=== PATIENT | female | born 1965 | race Caucasian/White ===

== ENCOUNTER 2020-01-02 07:31 | Outpatient (CLI) | payer OTHER, SELFPAY ==
[2020-01-02 07:48] LABS: Basophils Percent Auto 0.5 % (0.2-1.2); Eosinophils Absolute Auto 0.6 K/mm3 (0-0.3); Eosinophils Percent Auto 7.2 % (0-4.4); Hematocrit 38.2 % (37.0-47.0); Hemoglobin 12.1 g/dL (12.0-15.0); Immature Granulocyte Absolute 0.02 K/mm3 (0.00-0.031); Immature Granulocyte Percent A 0.2 % (0-0.5); Lymphocytes Absolute Auto 3.54 K/mm3 (0.9-3.2); Lymphocytes Percent Auto 42.5 % (18.3-44.2); Mean Corpuscular HGB Conc 31.7 g/dl (32-36); Mean Corpuscular Hemoglobin 28.9 pg (26-34); Mean Corpuscular Volume 91.2 fl (80-100); Mean Platelet Volume 10.3 fl (7.4-10.4); Monocytes Absolute Auto 0.7 K/mm3 (0.1-0.6); Neutrophils Absolute Auto 3.5 K/mm3 (1.3-6.7); Neutrophils Percent Auto 41.6 % (45.5-73.1); Platelet Count Result 336 k/mm3 (150-375); Red Blood Count 4.19 M/mm3 (4.2-5.4); Red Cell Distribution Width 13.4 % (11.5-14.5); White Blood Count 8.3 K/mm3 (4.5-10.0)
[2020-01-02 07:59] LABS: Alanine Aminotransferase 30 U/L (4-35); Albumin Level 4.4 g/dL (3.5-5.1); Alkaline Phosphatase 80 U/L (38-126); Aspartate Amino Transferase 42 U/L (14-36); Bilirubin,Total 0.4 mg/dL (0.2-1.3); Blood Urea Nitrogen 17 mg/dL (7-17); Calcium 9.6 mg/dL (8.4-10.2); Carbon Dioxide 27 mmol/L (22-30); Chloride 104 mmol/L (98-107); Cholesterol 193 mg/dL (0-200); Estimated Glomerular Filt Rate > 60; Glucose 110 mg/dL (65-105); HDL Direct 44 mg/dL; Potassium 4.3 mmol/L (3.4-5.0); Sodium 137 mmol/L (137-145); Triglycerides 285 mg/dL (<150)
[2020-01-02 09:50] LABS: LDL Cholesterol Direct < 30 mg/dL
== END 2020-01-02 07:32 | disposition home or self-care (01) ==
PROVIDERS: PCP Family Medicine; Visit Provider Family Medicine
DX: F32.9 Major depressive disorder, single episode, unspecified (principal); E78.2 Mixed hyperlipidemia; D64.9 Anemia, unspecified
CPT/HCPCS: 36415; 80053; 80061; 84443; 85025

== ENCOUNTER 2020-01-21 10:37 | Outpatient (CLI) | payer OTHER, SELFPAY ==
--- NOTE | 2020-01-21 11:01 | ECG_ITS ---
Measurements Intervals [place] Rate: 69 P: 42 HI: 143 QRS: -39 QRSD: 97 T: 3 QT: 398 QTc: 428 Interpretive Statements SINUS RHYTHM LEFT AXIS DEVIATION POOR R WAVE PROGRESSION, ANTERIOR LEADS MINIMAL Q WAVES- HIGH LATERAL LEADS BORDERLINE T WAVE ABNORMALITY- ANT/INF LEADS BORDERLINE ECG Electronically Signed On 01-21-2020 11:45:38 CDT by Carter Walters D.O.
== END 2020-01-21 10:38 | disposition home or self-care (01) ==
PROVIDERS: PCP Family Medicine; Visit Provider Nurse Practitioner Family
DX: Z41.9 Encounter for procedure for purposes other than remedying health state, unspecified (principal); R94.31 Abnormal electrocardiogram [ECG] [EKG]
CPT/HCPCS: 93005

== ENCOUNTER → 2020-05-28 10:30 | Outpatient (CLI) | payer OTHER, SELFPAY ==
--- NOTE | ~2020-05-28 | MR_ITS ---
EXAMINATION: MR knee RT wo con DATE: 05/28/2020 11:19 INDICATION: Generalized right knee pain and limited range of motion TECHNIQUE: Magnetic resonance imaging (MRI) of the right knee was performed without intravenous contr ast. Sequences included coronal PD-weighted FSE, coronal PD-weighted FS FSE, sagittal T2-weighted FS E, sagittal PD-weighted FS FSE and axial PD weighted fat saturated FSE. COMPARISON: None. FINDINGS: Medial compartment: The posterior horn of the medial meniscus is small but with normal triangular shape which may be rela mena to prior partial meniscectomy given the provided history of prior knee surgery. There is a radial tear at the central aspect of the posterior horn of the medial meniscus which is best appreciated on axial series 4, image 14. There is partial thickness chondral ulceration involving greater than 50% the cartilage thickness along significant portions of the anterior to central weightbearing medial fe moral condyle. Small focus of underlying subarticular edema along the medial side of the central weig htbearing medial femoral condyle. There is small chondral flap along the the posterior margin of the region of ulceration. Additional deep chondral fissuring at the medial side of the posterior weightbe aring medial femoral condyle. Partial thickness cartilage loss with smooth chondral surface along the medial side of the medial tibial plateau. Lateral compartment: Bucket-handle tear of the lateral meniscus with anterior displacement of a flap comprising majority o f the meniscus resulting in a double anterior horn sign. There is a small amount residual frayed appe aring meniscal tissue at the posterior horn with minimal if any meniscal tissue remaining in the venkat on of the meniscal body. Deep chondral ulceration at the medial side of the medial tibial plateau kristopher ng the shoulder of the intercondylar eminence with minimal underlying subarticular edema. There is ad ditional shallow chondral ulceration and deeper fissuring along the juxtaposed medial side of the margarita tral weightbearing lateral femoral condyle. Patellofemoral compartment: Partial-thickness cartilage loss and deep fissuring involving much of the patella with small region o f subarticular edema at the lateral side of the cephalad aspect of the apical ridge. Deep chondral fi ssuring with crabmeat-like appearance but without degenerative subarticular changes at the trochlear groove. Additional deep fissuring with mild underlying cortical irregularity at the medial aspect of the medial trochlea and lateral aspect of the lateral trochlea. Ligaments and tendons: Anterior and posterior cruciate ligaments are normal. The medial collateral ligament and fibular mary ateral ligament complex are normal. The extensor mechanism is normal. The visualized medial and later al hamstring tendons as well as the iliotibial band are normal. Fluid: Large right knee joint effusion with scattered mild synovitis most prominent at the suprapatellar sondra ch and along the posterior margin of Hoffa's fat pad. No loose osteochondral bodies identified. Osseous/other: Bone alignment is normal. No fracture or pathologic marrow replacing process. IMPRESSION: 1. Lateral meniscal bucket-handle tear with anterior displacement of a large meniscal flap comprising the majority of the body and posterior horn. 2. Radial tear at the small posterior horn of the medial meniscus the latter likely reflecting change s of prior partial meniscectomy. 3. Mild tricompartmental osteoarthritis with regions of high-grade chondromalacia in all 3 compartmen ts. 4. Large right knee joint effusion. Reviewed, dictated and finalized at location A.
== END ==
PROVIDERS: PCP Family Medicine; Visit Provider Nurse Practitioner Family
DX: M25.561 Pain in right knee (principal); M25.461 Effusion, right knee; S83.251A Bucket-handle tear of lateral meniscus, current injury, right knee, initial encounter; S83.211A Bucket-handle tear of medial meniscus, current injury, right knee, initial encounter; M17.11 Unilateral primary osteoarthritis, right knee
CPT/HCPCS: 73721

== ENCOUNTER 2020-09-05 15:18 | Outpatient (CLI) | payer OTHER, SELFPAY ==
--- NOTE | ~2020-09-05 | US_ITS ---
EXAMINATION: US thyroid DATE: 09/05/2020 15:41 INDICATION: Localized swelling, mass and lump, neck. TECHNIQUE: Multiple ultrasound images of the thyroid were obtained. COMPARISON: None. FINDINGS: The right thyroid lobe measures 4.3 x 1.4 x 1.5 cm. The left thyroid lobe measures 4.1 x 0.7 x 1.2 c m. In the left thyroid lobe, there is a 4 mm nodule. IMPRESSION: 1. Small thyroid nodule, likely not clinically significant. No follow-up is needed. Reviewed, dictated and finalized at location A. STERED RESPIRATORY TECHNICIAN IMPRESSION: 1. Small thyroid nodule, likely not clinically significant. No follow-up is nee ded.
== END 2020-09-05 15:19 ==
LOC: MICIMG 15:18
PROVIDERS: PCP Family Medicine; Visit Provider Nurse Practitioner Family
DX: E04.9 Nontoxic goiter, unspecified (principal); R22.1 Localized swelling, mass and lump, neck
CPT/HCPCS: 76536

== ENCOUNTER 2020-09-16 10:49 | Outpatient (CLI) | payer OTHER, SELFPAY ==
--- NOTE | ~2020-09-16 | XR_ITS ---
EXAMINATION: XR barium swallow DATE: 09/16/2020 11:56 INDICATION: Dysphagia with feeling of food becoming stuck. TECHNIQUE: The patient drank thick barium, gas-producing crystals, and thin barium. Fluoroscopy of th e hypopharynx and esophagus was performed. Fluoroscopy exposure time was 0.6 minutes. The total numbe r of images was 520. The dose-area product was 2.699 Gy-cm^2. COMPARISON: None. FINDINGS: There is no mass or stricture of the esophagus. There is decreased primary and secondary es ophageal peristalsis. No abnormal tertiary waves. There is no hiatal hernia. There was no gastroesoph ageal reflux with provocative maneuvers. IMPRESSION: 1. Mild esophageal dysmotility. Reviewed, dictated and finalized at location B. CARDIOGRAPHY TECHNOLOGIST
--- NOTE | ~2020-09-16 | US_ITS ---
EXAMINATION: US soft tissue head and neck DATE: 09/16/2020 11:07 INDICATION: Neck lump. TECHNIQUE: Multiple grayscale ultrasound images of the neck were obtained. COMPARISON: None FINDINGS: There is no abnormal mass or lymphadenopathy in the patient's area of concern in the neck. IMPRESSION: 1. No abnormal mass or lymphadenopathy in the patient's area of concern in the neck. Reviewed, dictated and finalized at location B. ER COOK
== END 2020-09-16 10:50 ==
PROVIDERS: PCP Family Medicine; Visit Provider Nurse Practitioner Family
DX: R22.1 Localized swelling, mass and lump, neck (principal); K22.4 Dyskinesia of esophagus
CPT/HCPCS: 74220; 76536

== ENCOUNTER 2020-09-27 14:52 | Outpatient (RCR) | payer OTHER, SELFPAY ==
--- NOTE | 2020-09-27 15:56 | STOPEVAL ---
SPEECH THERAPY INITIAL EVALUATION/DISCHARGE: Thank you for referring Arielle Zuleta to [facility] Upon completion of the bedside swallow evaluation, no overt s/s of aspiration were exhibited; Further testing via MBS may be warranted as stated below. Based on findings of this evaluation, no further ST is warranted. Please review, sign, date and return this plan of care ANGEL. I agree with the following plan of care, i.e. discharge. Referring Physician Date Attending Provider: AZUL Granda *ST Outpatient Evaluation/Discharge Therapy Assessment Status Assessment Status Assessment Status Evaluation & Discharge Outpatient Past Medical History Past Medical History Source of Past Medical History Patient Neurological History Hx Neurological Disorders No Significant History Cardiovascular History Hx Cardiac Disorders No Significant History Respiratory History Hx Bronchitis Yes Gastrointestinal History Hx Gastrointestinal Disorders No Significant History Genitourinary History Hx Genitourinary Disorders No Significant History Musculoskeletal History Hx Back Pain Yes Hx Orthopedic Surgery Yes: knee 2012 and shoulder 2019 Endocrine History Hx Endocrine Disorders No Significant History HEENT History Hx HEENT Disorders No Significant History Integumentary History Hx Skin Disorders No Significant History Evaluation Information Problem Diagnosis dysphagia Onset 3-4 months Diagnostic Tests X-Rays For This Problem Yes MRI For This Problem No Other Tests For This Problem Yes: ultrasound and esophagram Prior Level of Function Home Setting Living Situation With Adult Child,With Spouse Prior Swallow Level Prior Intake Method Oral Prior Diet Regular (Level 7 Diet) Prior Liquid Consistency Thin (Level 0 Diet) Prior Cognition/Communication Prior Communication Level No Impairment Prior Cognitive Function Able to Function Independently Prior Ability to Handle Finances Independent Pain Assessment Timing of Pain Assessment Timing of Pain Assessment Assessment Self Report Self Report Pain Level 0 Pain Score Pain Score 0: Self Report Bedside Swallow Evaluation General Reports Dysphagia Yes Reported Difficult Consistencies Solids Meal Observed Bedside Swallows History of Dysphagia No Other Factors Impacting Dysphagia None History of Pneumonia No Intake Method Prior to Swallow Oral Evaluation Diet Prior to Swallow Evaluation Regular, Level 7 Liquid Consistency Prior to Swallow Thin (0) Evaluation Cognition During Swallowing Alert,Attentive Consistency Solid Consistency Me
== END 2020-09-29 12:39 | disposition home or self-care (01) ==
LOC: ANHST 14:52
PROVIDERS: PCP Family Medicine; Visit Provider Nurse Practitioner Family
DX: R22.1 Localized swelling, mass and lump, neck (principal)
CPT/HCPCS: 92610

== ENCOUNTER 2021-03-28 00:20 | Emergency (ER) | payer OTHER, SELFPAY ==
--- NOTE | ~2021-03-28 | XR_ITS ---
EXAMINATION: XR chest 2V DATE: 03/28/2021 00:59 INDICATION: Bilateral chest pain. Nausea. TECHNIQUE: PA and lateral views of the chest were obtained. COMPARISON: Chest radiograph dated 09/06/2017 FINDINGS: Lung volumes remain small but clear with no focal airspace opacities, pulmonary edema, pleural effusi on or pneumothorax. Cardiomegaly. Distal right clavicle resection. Mild thoracic kyphosis with mild a nterior wedging at a few levels in the midthoracic spine. Moderate spondylosis. IMPRESSION: 1. No acute cardiopulmonary disease. 2. Cardiomegaly. Reviewed, dictated and finalized at location A.
--- NOTE | 2021-03-28 00:24 | ECG_ITS ---
Measurements Intervals [place] Rate: 84 P: 45 SC: 144 QRS: -50 QRSD: 97 T: 6 QT: 391 QTc: 464 Interpretive Statements SINUS RHYTHM LEFT ANTERIOR FASCICULAR BLOCK MINIMAL Q WAVES- HIGH LATERAL LEADS BORDERLINE T WAVE ABNORMALITY- ANTEROLAT/INF LEADS ABNORMAL ECG Electronically Signed On 03-28-2021 6:31:04 CDT by Carter Walters D.O.
[2021-03-28 00:28] VITALS: BP 142/96; PULSE 80; RESP 16; TEMP 36.7; O2SAT 99
[2021-03-28 00:43] LABS: Basophils Percent Auto 0.4 % (0.2-1.2); Eosinophils Absolute Auto 0.6 K/mm3 (0-0.3); Eosinophils Percent Auto 5.1 % (0-4.4); Hematocrit 37.2 % (37.0-47.0); Hemoglobin 11.6 g/dL (12.0-15.0); Immature Granulocyte Absolute 0.03 K/mm3 (0.00-0.031); Immature Granulocyte Percent A 0.3 % (0-0.5); Lymphocytes Percent Auto 44.1 % (18.3-44.2); Mean Corpuscular HGB Conc 31.2 g/dl (32-36); Mean Corpuscular Hemoglobin 28.9 pg (26-34); Mean Corpuscular Volume 92.8 fl (80-100); Mean Platelet Volume 9.8 fl (7.4-10.4); Monocytes Absolute Auto 0.8 K/mm3 (0.1-0.6); Monocytes Percent Auto 6.8 % (2.6-8.5); Neutrophils Absolute Auto 4.8 K/mm3 (1.3-6.7); Neutrophils Percent Auto 43.3 % (45.5-73.1); Platelet Count Result 358 k/mm3 (150-375); Red Blood Count 4.01 M/mm3 (4.2-5.4); Red Cell Distribution Width 13.6 % (11.5-14.5); White Blood Count 11.1 K/mm3 (4.5-10.0)
[2021-03-28 00:54] LABS: INR 0.9; Prothrombin Time 12.4 Seconds (11.1-14.7)
[2021-03-28 00:55] LABS: Anion Gap 12 mmol/L (8-16); Blood Urea Nitrogen 17 mg/dL (7-17); Calcium 10.1 mg/dL (8.4-10.2); Carbon Dioxide 24 mmol/L (22-30); Chloride 103 mmol/L (98-107); Estimated CRCL calculation 74 ml/min; Estimated Glomerular Filt Rate > 60; Glucose 104 mg/dL (65-110); Partial Thromboplastin Time 26.4 SECONDS (22.3-36.8); Potassium 3.7 mmol/L (3.4-5.0); Sodium 139 mmol/L (137-145)
[2021-03-28 01:03] LABS: Atypical Lymphocytes Present; Platelet Estimate Adequate (Adequate)
[2021-03-28 01:07] LABS: Troponin I < 0.012 ng/mL (0.000-0.034)
[2021-03-28 02:53] VITALS: BP 129/82; PULSE 79; RESP 15; O2SAT 99
[2021-03-28] MEDS: ASPIRIN 81 MG CHEWABLE TABLET 324 MG PO (03:03)
[2021-03-28 04:06] LABS: Troponin I < 0.012 ng/mL (0.000-0.034)
[2021-03-28 04:34] VITALS: BP 112/79; PULSE 68; RESP 19; O2SAT 97
[2021-03-28 04:45] LABS: Alanine Aminotransferase 21 U/L (4-35); Albumin Level 4.2 g/dL (3.5-5.1); Alkaline Phosphatase 100 U/L (38-126); Aspartate Amino Transferase 29 U/L (14-36); Bilirubin,Total 0.4 mg/dL (0.2-1.3); Lipase 50 U/L (23-300)
--- NOTE | 2021-03-28 05:24 | ED.GENADULT ---
HPI - General Adult General Chief complaint: Chest Pain Stated complaint: chest pain/sob Time Seen by Provider: 03/28/21 02:49 History of Present Illness HPI narrative: Patient is a 55-year-old female presents the emergency department chief complaint of chest discomfort. Patient states the pain is bilateral radiates to her breast patient states started off with nausea patient states it also is more the epigastric region. Patient reports that she felt a little short of breath when this happened denies fever denies chills denies vomiting or diarrhea. Patient reports symptoms are not improved by anything or they worsened by Related Data Allergies Allergy/AdvReac Type Severity Reaction Status Date / Time esomeprazole Allergy Unknown Unknown Verified 03/28/21 03:01 fluoxetine Allergy Unknown Unknown Verified 03/28/21 03:01 Review of Systems Review of Systems: A 10 system review of systems was completed on the patient and is negative except for what is stated in the HPI. Nursing and ancillary documentation was reviewed. PMFSH Past Medical History Medical History Adult BMI 33.0-33.9 kg/sq m BMI 34.0-34.9,adult BMI 36.0-36.9,adult Dysphagia Elevated liver enzymes Obesity (BMI 30.0-34.9) Onychomycosis Plantar fasciitis of left foot Surgical History Surgical History H/O shoulder surgery Family History Family History Father Hypertension Family history of heart disease in male family member before age 55 Sibling Hypertension Cerebrovascular accident Family history of diabetes mellitus in first degree relative Family history of heart disease in male family member before age 55 Mother Family history of diabetes mellitus in first degree relative Grandparent Diabetes mellitus Sibling Diabetes mellitus Other Family history of cardiovascular disease Family history of elevated blood lipids Family history of mental disorder Social History Social History Second hand tobacco smoke exposure: Yes Alcohol intake: former Substance use: never Substance use type: does not use 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 HEAD: Normocephalic, atraumatic. EYES: PERRLA and EOMI. ENT: Nares clear, no rhinorrhea or epistaxis. Mucous membranes moist. NECK: Supple. CHEST: Clear to auscultation. No respiratory distress. HEART: Regular rate and rhythm. No murmur heard. Normal peripheral pulses. ABDOMEN: Soft, nontender, nondistended, normal active bowel sounds. EXTREMITIES: Normal range of motion. No edema. SKIN: Warm, dry, no rash. NEURO: No focal deficits. Alert and oriented x3. PSYCH: Normal mood and affect. Course Vital Signs Vital signs: Vital Signs Temperature 36.7 C 03/28/21 00:28 Pulse Rate 80 03/28/21 00:28 Respiratory Rate 16 03/28/21 00:28 Blood Pressure 142/96 H 03/28/21 00:28 Pulse Oximetry 99 03/28/21 00:28 Temperature 36.7 C 03/28/21 00:28 Pulse Rate 68 03/28/21 04:34 Respiratory Rate 19 03/28/21 04:34 Blood Pressure 112/79 03/28/21 04:34 Pulse Oximetry 97 03/28/21 04:34 Medical Decision Making Vital Signs Vital Signs: Vital Signs Temperature 36.7 C 03/28/21 00:28 Pulse Rate 80 03/28/21 00:28 Respiratory Rate 16 03/28/21 00:28 Blood Pressure 142/96 H 03/28/21 00:28 Pulse Oximetry 99 03/28/21 00:28 Temperature 36.7 C 03/28/21 00:28 Pulse Rate 68 03/28/21 04:34 Respiratory Rate 19 03/28/21 04:34 Blood Pressure 112/79 03/28/21 04:34 Pulse Oximetry 97 03/28/21 04:34 Lab Data Result
[2021-03-28 05:48] VITALS: BP 105/72; PULSE 82; RESP 18; O2SAT 100
== END 2021-03-28 05:50 | disposition home or self-care (01) ==
PROVIDERS: Emergency Provider Emergency Medicine; PCP Family Medicine
DX: R07.89 Other chest pain (principal)
CPT/HCPCS: 36415; 71046; 80048; 80076; 83690; 84484; 85025; 85610; 85730; 93005; 99284; A9270

== ENCOUNTER 2021-06-13 08:46 | Outpatient (CLI) | payer OTHER, SELFPAY ==
--- NOTE | ~2021-06-13 | XR_ITS ---
XR clavicle LT 06/13/2021 10:16 INDICATION: Left clavicle pain and deformity PROCEDURE: 2 views left clavicle COMPARISON: No prior studies for comparison. FINDINGS: Fracture, dislocation or subluxation is not identified. There is mild osteoarthritis of the acromioclavicular joint. The soft tissues appear within normal limits. No foreign bodies are identi fied. IMPRESSION: 1: NO ACUTE BONE OR JOINT ABNORMALITY IDENTIFIED. Reviewed, dictated and finalized at location B.
--- NOTE | ~2021-06-13 | XR_ITS ---
EXAMINATION: XR chest 2V 06/13/2021 10:16 INDICATION: Acquired deformity of the chest and ribs PROCEDURE: 2 view chest COMPARISON: Comparison to multiple prior studies sequentially, with oldest reviewed study dated 11/12. FINDINGS: The lungs are clear. The cardiomediastinal silhouette is within normal limits. There are no pleural effusions. There is no pneumothorax suspected. IMPRESSION: 1: NO ACUTE CARDIOPULMONARY DISEASE. Reviewed, dictated and finalized at location B.
== END 2021-06-13 08:47 ==
LOC: MICIMG 08:49
PROVIDERS: PCP Family Medicine; Visit Provider Family Medicine
DX: M95.4 Acquired deformity of chest and rib (principal)
CPT/HCPCS: 71046; 73000

== ENCOUNTER 2021-08-21 15:29 | Inpatient (IN) | payer OTHER, SELFPAY ==
[2021-08-21] VITALS (20 sets, daily range): BP systolic 90–123; BP diastolic 57–84; PULSE 83–114; RESP 13–42; TEMP 35.8–36.5; O2SAT 68–100; BMI 35.6
--- NOTE | ~2021-08-21 | XR_ITS ---
EXAMINATION: XR chest 1V portable DATE: 08/29/2021 06:15 INDICATION: Dyspnea. TECHNIQUE: A single frontal view of the chest was obtained. COMPARISON: Chest single view 08/27/2021, chest CT 08/25/2021 FINDINGS: The lung volumes are small. There is mild relative elevation of left hemidiaphragm. There a re patchy airspace opacities throughout the lungs bilaterally. No pleural effusion or pneumothorax. C ardiomegaly is noted. IMPRESSION: 1. Diffuse lung disease with mild worsening on the left, consistent with COVID-19 pneumonia. 2. Cardiomegaly. Reviewed, dictated and finalized at location A. RY SURFACE GRINDER IMPRESSION: 1. Diffuse lung disease with mild worsening on the left, consistent with COVID- 19 pneumonia. 2. Cardiomegaly.
--- NOTE | ~2021-08-21 | XR_ITS ---
EXAMINATION: XR chest 1V portable DATE: 09/25/2021 07:09 INDICATION: Acute respiratory failure from bilateral pneumonia. TECHNIQUE: A single frontal view of the chest was obtained. COMPARISON: Chest single view 09/24/2021, CT abdomen and pelvis 09/02/2021 FINDINGS: The lung volumes are small. There are airspace and interstitial opacities throughout the ramon ngs bilaterally. No pleural effusion or pneumothorax. The heart size is normal. The endotracheal tube tip is 2.2 cm above the marilu. A left upper extremity peripherally inserted central venous catheter (PICC) is seen with tip at the superior cavoatrial junction. A right internal jugular central venous catheter is seen with tip in the superior vena cava. Bilateral nephrostomy tubes are noted. The naso enteric tube tip is beyond the inferior margin of the radiograph, but at least to the stomach. IMPRESSION: 1. Small lung volumes with stable diffuse lung disease, consistent with pulmonary edema versus pneumo cecile. Reviewed, dictated and finalized at location A. NESS DEVELOPMENT IMPRESSION: 1. Small lung volumes with stable diffuse lung disease, consistent with pulmona ry edema versus pneumonia.
--- NOTE | ~2021-08-21 | XR_ITS ---
XR chest 1V portable DATE: 08/31/2021 06:36 INDICATION: Intubation. Covid pneumonia. TECHNIQUE: Portable AP chest on 08/31/2021 at 0629 hours COMPARISON: 08/30/2021 portable AP chest at 1900 hours FINDINGS: ET tube in satisfactory position 2.5 cm above marilu, withdrawn from right lower lobe shawnee tem bronchus since 08/30/2021 at 1900 hours. NG tube in gastric fundus. Left upper extremity PIC catheter is situated near superior cavoatrial junction. Persistent relatively stable patchy bilateral pulmonary infiltrates, right greater than left. IMPRESSION: ET tube repositioned in satisfactory position Patchy bilateral pulmonary infiltrates, right greater than left Reviewed, dictated and finalized at location A. VERY CREW MEMBER
--- NOTE | ~2021-08-21 | XR_ITS ---
EXAMINATION: XR chest port-a-cath/central DATE: 09/29/2021 11:56 INDICATION: Russell catheter verification TECHNIQUE: frontal view of the chest was obtained. COMPARISON: Chest radiograph dated 09/29/2021 FINDINGS: Endotracheal tube tip 3.5 cm above the marilu. Nasogastric tube tip at the gastric antrum with proxim al side-port in the gastric body. Right upper extremity peripherally inserted central venous catheter (PICC) tip at the caudal superior vena cava. There is a large-bore dual-lumen left internal jugular central venous catheter which extends into the superior vena cava with distal tip projecting approxi mately 1.5 cm lateral to the course of the distal right PICC line suggesting this abuts and potential ly focally distending the lateral wall of the superior vena cava. Persistent elevation of the left hemidiaphragm. Small lung volumes with persistent scattered mild per ipheral opacities at both lungs. No pleural effusion or pneumothorax. Heart size is normal. Bilateral percutaneous nephrostomy tubes with loops formed over the expected locations of the bilateral renal pelvises. IMPRESSION: 1. Left internal jugular central venous catheter in the proximal superior vena cava but projecting mo re lateral than expected suggesting there is focally intense the lateral wall of the vessel which wou ld entail a risk of erosion of the wall of the vessel over time. Would consider withdrawal of the cat heter by 2.[address] the tip at the level the confluence of the superior vena cava and left brach iocephalic vein. 2. Unchanged small lung lungs with peripheral predominant opacities consistent with COVID pneumonia v ersus acute respiratory distress syndrome (ARDS). Reviewed, dictated and finalized at location A. ARCH HOME ECONOMIST IMPRESSION: 1. Left internal jugular central venous catheter in the proximal superior vena cava but projecting more lateral than expected suggesting there is focally inte nse the lateral wall of the vessel which would entail a risk of erosion of the wall of the vessel over time. Would consider withdrawal of the catheter by 2.[address] the tip at the level the confluence of the superior vena cava and l eft brachiocephalic vein. 2. Unchanged small lung lungs with peripheral predominant opacities consistent with COVID pneumonia versus acute respiratory distress syndrome (ARDS).
--- NOTE | ~2021-08-21 | XR_ITS ---
EXAMINATION: XR chest 1V portable DATE: 09/07/2021 12:09 INDICATION: Line adjustment. TECHNIQUE: A single frontal view of the chest was obtained. COMPARISON: Chest single view at 5:07 AM, CT abdomen and pelvis 09/02/2021 FINDINGS: There are airspace opacities in all lung zones bilaterally. There are small pleural effusio ns. No pneumothorax. The heart size is normal. The nasogastric tube tip is in the stomach. The endotr acheal tube tip is 3.3 cm above the marliu. A left upper extremity peripherally inserted central veno us catheter (PICC) is seen with tip at the superior cavoatrial junction. A right internal jugular margarita tral venous catheter is seen with tip at the superior cavoatrial junction. Bilateral nephrostomy tube s are noted. IMPRESSION: 1. Stable diffuse lung disease, consistent with COVID-19 pneumonia. 2. Stable small pleural effusions. Reviewed, dictated and finalized at location B. ATOR SPECIALIST
--- NOTE | ~2021-08-21 | XR_ITS ---
XR chest 1V portable DATE: 08/30/2021 06:10 INDICATION: Shortness of breath. Tachycardia. TECHNIQUE: Portable upright AP chest on 08/30/2021 at 0558 hours COMPARISON: 08/29/2021 portable AP chest at 0548 hours FINDINGS: Persistent extensive patchy bilateral pulmonary infiltrates, relatively unchanged since 2021. No pleural effusion or pneumothorax is evident. Heart size is likely within normal limits although not optimally evaluated on AP projection because o f magnification. Relatively high diaphragm. IMPRESSION: Persistent bilateral patchy pulmonary infiltrates, relatively stable since yesterday Reviewed, dictated and finalized at location A. TOR IMPRESSION: Persistent bilateral patchy pulmonary infiltrates, relatively stabl e since yesterday
--- NOTE | ~2021-08-21 | XR_ITS ---
EXAMINATION: XR abdomen/kub 1V DATE: 09/24/2021 12:08 INDICATION: Pelvic hematoma. TECHNIQUE: A supine view of the abdomen on 2 radiographs was obtained. COMPARISON: CT abdomen and pelvis 09/02/2021 FINDINGS: There are no dilated loops of bowel. There are bilateral percutaneous nephrostomy tubes. A nasoenteric tube tip is in the stomach. There is leftward displacement of the Viera catheter. IMPRESSION: 1. Nonobstructive bowel gas pattern. 2. Persistent leftward displacement of the Viera catheter secondary to the pelvic hematoma. Reviewed, dictated and finalized at location A. ER DEVELOPMENT FACILITATOR IMPRESSION: 1. Nonobstructive bowel gas pattern. 2. Persistent leftward displacement of the Viera catheter secondary to the pelv ic hematoma.
--- NOTE | ~2021-08-21 | XR_ITS ---
EXAMINATION: XR pelvis 1-2V DATE: 09/24/2021 12:08 INDICATION: Pelvic hematoma. TECHNIQUE: An anteroposterior view of the pelvis was obtained. COMPARISON: CT abdomen and pelvis 09/02/2021 FINDINGS: There are no dilated loops of bowel. There is leftward displacement of the Viera catheter. Bone alignment is normal. No fracture. The hip joint spaces are normal. IMPRESSION: 1. Persistent leftward displacement of the Viera catheter from the pelvic hematoma. Reviewed, dictated and finalized at location A. COMMUNICATIONS ANALYST IMPRESSION: 1. Persistent leftward displacement of the Viera catheter from the pelvic hemat cintia.
--- NOTE | ~2021-08-21 | XR_ITS ---
XR abdomen/kub 1V DATE: 08/30/2021 06:16 INDICATION: New onset of abdominal pain TECHNIQUE: Portable supine AP views COMPARISON: None FINDINGS: The psoas shadows are intact. No visceromegaly is evident. No significant abnormal calcific ation is noted. There is no evidence of bowel obstruction. Patchy bilateral pulmonary infiltrates are noted. IMPRESSION: Nonspecific abdomen; no bowel obstruction Reviewed, dictated and finalized at Location A. Reviewed, dictated and finalized at location A. R AND CUTTER FINGER BUFF MATERIAL
--- NOTE | ~2021-08-21 | XR_ITS ---
EXAMINATION: XR chest 1V portable DATE: 09/02/2021 06:15 INDICATION: Respiratory failure. TECHNIQUE: A single frontal view of the chest was obtained. COMPARISON: Chest single view 09/01/2021, chest CT 08/30/2021 FINDINGS: The lung volumes are small with relative elevation of left hemidiaphragm. There are airspac e and interstitial opacities throughout the lungs bilaterally. No pleural effusion or pneumothorax. T he heart size is normal. The endotracheal tube tip is 1.7 cm above the marilu. A left upper extremity peripherally inserted central venous catheter (PICC) is seen with tip in the superior vena cava. The nasogastric tube tip is in the stomach. IMPRESSION: 1. Stable small lung volumes with diffuse lung disease, consistent with COVID-19 pneumonia. Reviewed, dictated and finalized at location A. OND MILL OPERATOR IMPRESSION: 1. Stable small lung volumes with diffuse lung disease, consistent with COVID-1 9 pneumonia.
--- NOTE | ~2021-08-21 | XR_ITS ---
EXAMINATION: XR chest 1V portable EXAM DATE: 09/18/2021 06:03 INDICATION: Check Placement of Pic line. Left Arm. TECHNIQUE: Portable AP frontal chest x-ray was obtained. Comparison is made to prior examination from 09/16/2021. FINDINGS: There is a large caliber right-sided IJ venous line. There is a left-sided PICC line in exp ected position. Moderate amount of ill-defined bilateral airspace disease, pneumonia or edema. Low ramon ng volumes. No pneumothorax. Patient had bilateral nephrostomy tubes. Moderate thoracic spondylosis. IMPRESSION: 1. No interval change. 2. Moderate bilateral pneumonia or edema. 3. Left-sided PICC line in position. Reviewed, dictated and finalized at location A. LE COOK
--- NOTE | ~2021-08-21 | US_ITS ---
EXAMINATION: US venous doppler [facility] DATE: 08/31/2021 09:29 INDICATION: Shortness of breath and tachycardia TECHNIQUE: Grayscale ultrasound images without and with compression and Doppler ultrasound images of the bilateral lower extremity veins were obtained. COMPARISON: None. FINDINGS: The visualized portions of right common femoral vein, profunda (deep) femoral vein, femoral vein, pop liteal vein, posterior tibial veins, peroneal veins, gastrocnemius vein and greater saphenous vein ou tflow are patent. Incidentally noted is some flow reversal in the right greater saphenous vein sugges ting reflux. The visualized portions of left common femoral vein, profunda femoral vein, femoral vein, popliteal v ein, posterior tibial veins, peroneal veins, gastrocnemius vein and greater saphenous vein outflow ar e patent. IMPRESSION: 1. No deep venous thrombosis in either lower limb. 2. At the venous reflux with flow reversal in the right greater saphenous vein. Reviewed, dictated and finalized at location B. CIPAL AUTOMATION ENGINEER
--- NOTE | ~2021-08-21 | CT_ITS ---
EXAMINATION: CT brain wo [facility] EXAM DATE: 09/01/2021 20:47 INDICATION: altered mental status intubated. TECHNIQUE: Spiral CT of the head was performed without contrast. Axial, coronal and sagittal images were reviewed. The dose-length product (DLP) for this examination was 908.00 mGy-cm. The exposure w as tailored according to patient size, and iterative reconstruction (ASIR) was used as additional dos e reduction technique. There is prior study from 2006 for comparison. FINDINGS: Patient is intubated, there is motion on the examination. There is no acute intraparenchyma l hemorrhage. No evidence of intraparenchymal brain mass lesion. No evidence of acute infarction. There is no mass effect or midline shift. The ventricles are normal in size. There are no extra-axi al collections. There are no acute calvarial fractures. The orbits are unremarkable. Soft tissue is unremarkable. The visualized sinuses and mastoid air cells are well aerated. IMPRESSION: Limited, but no acute hemorrhage or other intracranial abnormality identified. Reviewed, dictated and finalized at location G. CARDIOGRAPHY RADIOLOGY TECHNOLOGIST
--- NOTE | ~2021-08-21 | XR_ITS ---
EXAMINATION: XR chest 1V portable EXAM DATE: 08/30/2021 19:14 INDICATION: Post cardiac arrest. TECHNIQUE: Portable AP frontal chest x-ray was obtained. Comparison is made to prior examination from earlier same date. FINDINGS: Endotracheal tube tip is in the right mainstem bronchus. This could be safely retracted 3 cm, which according to the IM unit nurse Pauline was already done after reviewing the x-ray. Feeding tu be is in position. Diffuse bilateral airspace disease, appearance consistent with COVID pneumonia. There are no sizable pleural effusions. There is no pneumothorax suspected. The cardiomediastinal silhouette is promi nent but magnified on this AP technique. The bones and soft tissues are unremarkable. IMPRESSION: 1. ET tube tip in right mainstem bronchus; reportedly this has already been retracted. 2. Diffuse bilateral COVID pneumonia. Reviewed, dictated and finalized at location A. LENGTH CHECKER IMPRESSION: 1. ET tube tip in right mainstem bronchus; reportedly this has already been re tracted. 2. Diffuse bilateral COVID pneumonia.
--- NOTE | ~2021-08-21 | XR_ITS ---
EXAMINATION: XR chest 1V portable DATE: 09/27/2021 04:22 INDICATION: Acute respiratory failure. TECHNIQUE: A single frontal view of the chest was obtained. COMPARISON: Chest single view 09/26/2021 FINDINGS: The lung volumes are small with mild relative elevation of left hemidiaphragm. There are ai rspace and interstitial opacities in all lung zones bilaterally. No pleural effusion or pneumothorax. The heart size is normal. A right internal jugular central venous catheter is seen with tip in the r ight atrium. A left upper extremity peripherally inserted central venous catheter (PICC) is seen with tip at the superior cavoatrial junction. There are bilateral nephrostomy tubes. The endotracheal tub e tip is 3.3 cm above the marilu. The nasoenteric tube tip is in the stomach. IMPRESSION: 1. Worsened diffuse lung disease with persistent small lung volumes, consistent with pulmonary edema versus pneumonia. Reviewed, dictated and finalized at location E. PULLER
--- NOTE | ~2021-08-21 | XR_ITS ---
EXAMINATION: XR chest 1V portable INDICATION: Cough and shortness of breath, COVID 19 TECHNIQUE: Portable AP chest at 1612 hours COMPARISON: 06/13/2021 FINDINGS: There are patchy opacities throughout all lung zones, right greater than left. No pleural e ffusion or pneumothorax is identified. The cardiomediastinal silhouette is normal. The visualized oss eous structures are unremarkable. IMPRESSION: 1. Diffuse lung disease in a pattern consistent with COVID 19 pneumonia given patient's clinical hist ory. Reviewed, dictated and finalized at location F. TANK ERECTOR IMPRESSION: 1. Diffuse lung disease in a pattern consistent with COVID 19 pneumonia given p atient's clinical history.
--- NOTE | ~2021-08-21 | XR_ITS ---
XR chest 1V portable DATE: 09/11/2021 05:48 INDICATION: Respiratory failure TECHNIQUE: Portable AP chest on 09/11/2021 0502 hours COMPARISON: 09/10/2021 portable AP chest at 0531 hours FINDINGS: ET tube tip approximately 3.2 cm above marilu in satisfactory position. Left upper extremit y PIC catheter tip and right internal jugular central venous catheter overlie each other, the interna l jugular venous catheter extending into the right atrium, the PICC catheter extending at least to th e superior cavoatrial junction or right atrium. Diffuse patchy bilateral pulmonary infiltrates, right greater than left, relatively unchanged since . Stable mild elevation left leaf of diaphragm. No pleural effusion or pneumothorax is evident. IMPRESSION: Extensive patchy bilateral pulmonary infiltrates, relatively stable since 09/10/2021 Reviewed, dictated and finalized at location A. CTURAL ENGINEERING TECHNICIAN
--- NOTE | ~2021-08-21 | XR_ITS ---
EXAMINATION: XR chest 1V portable DATE: 09/21/2021 08:26 INDICATION: Tachycardia. TECHNIQUE: A single frontal view of the chest was obtained. COMPARISON: Chest single view 09/18/2021 FINDINGS: The lung volumes are small. There are patchy airspace opacities in all lung zones bilateral ly with a peripheral predominance. No pleural effusion or pneumothorax. The heart size is normal. A r ight internal jugular central venous catheter is seen with tip in the right atrium. A left upper extr emity peripherally inserted central venous catheter (PICC) is seen with tip in the superior vena cava . The nasoenteric tube tip is beyond the inferior margin of the radiograph, but at least to the stoma ch. There are bilateral nephrostomy tubes. IMPRESSION: 1. Stable diffuse lung disease, consistent with pneumonia versus pulmonary edema. Reviewed, dictated and finalized at location A. TIVE PERFUMER IMPRESSION: 1. Stable diffuse lung disease, consistent with pneumonia versus pulmonary rut a.
--- NOTE | ~2021-08-21 | XR_ITS ---
XR chest 1V portable 09/09/2021 05:50 Indication: Respiratory failure Procedure: AP portable chest Comparison: 09/08/2021 Findings: Endotracheal tube tip 3.7 cm above the marilu. NG tube in the stomach. PICC line tip coiled in the brachiocephalic vein. Large bore central venous catheter tip in the SVC. Diffuse bilateral ai rspace disease is unchanged. No pneumothorax. No significant effusion. Impression: 1: No significant change to diffuse bilateral airspace disease which may represent pneumonia or edema . Reviewed, dictated and finalized at location A. R HAIR CLIPPER Impression: 1: No significant change to diffuse bilateral airspace disease which may repres ent pneumonia or edema.
--- NOTE | ~2021-08-21 | CT_ITS ---
EXAMINATION: CTA chest PE protocol DATE: 08/25/2021 13:12 INDICATION: Cough. COVID-19 pneumonia. TECHNIQUE: Computed tomography angiography (CTA) of the chest was performed with 100 mL Omnipaque-350 intravenous contrast timed to evaluate the pulmonary arteries. Coronal maximum intensity projection 3D-reconstructions were created by the technologist. Automated exposure control and iterative reconst ruction technique were employed. The dose-length product was 825.09 mGy-cm. COMPARISON: Chest CT 08/21/2021 FINDINGS: There are patchy groundglass and airspace opacities and crazy paving involving all lobes. N o pleural effusion. The heart size is normal. No pericardial effusion. There is a small sliding hiata l hernia. There are acute pulmonary emboli in right upper lobe, right lower lobe, left upper lobe, an d left lower lobe. There is thoracic kyphosis and mild spondylosis. IMPRESSION: 1. Acute bilateral pulmonary emboli, new from 08/21/2021. I called this result to Michel Valentine. 2. Worsened diffuse lung disease, consistent with COVID-19 pneumonia. Reviewed, dictated and finalized at location A. SCOPIC INSTRUMENT TESTER
--- NOTE | ~2021-08-21 | CT_ITS ---
EXAMINATION: CT chest abdomen pelvis wo con DATE: 09/25/2021 09:40 INDICATION: Respiratory failure, pelvic hematoma TECHNIQUE: Transaxial computed tomographic images of the chest, abdomen, and pelvis were obtained wit hout intravenous contrast. The dose-length product (DLP) was 1726.50 mGy-cm. Automated exposure contr ol and iterative reconstruction technique were employed. COMPARISON: 08/30/2021 FINDINGS: CHEST CT: The endotracheal tube ends approximately 2.1 cm above the marilu. A large bore right internal jugular catheter ends with its tip in the proximal right atrium. There is a small right pleural effusion. Pa tchy airspace and groundglass opacities persist throughout all lung zones with slight interval improv ement. There is no pneumothorax. No pathologically enlarged thoracic lymph nodes are identified. The heart size is normal. Healing anterolateral fractures of the right second through sixth ribs are note d. There also appears to be a nondisplaced anterolateral fracture of the right seventh rib. ABDOMEN/PELVIS CT: A nasogastric tube is in the stomach. The liver, spleen, pancreas, gallbladder, and adrenal glands ar e normal. There are bilateral percutaneous nephrostomy tubes. A large right pelvic hematoma persists which measures approximately 18.2 x 11.9 cm and is not significantly changed in size. There is also a n intramuscular hematoma of the right rectus abdominis muscle. The bladder is decompressed by Viera c atheter. The bladder and distal colon remain displaced to the left by the pelvic hematoma. There are tiny foci of gas in the left pelvis and hematoma unclear origin (images [id number]). No pathologically e nlarged abdominal lymph nodes are identified. No dilated loops of bowel. IMPRESSION: 1. Diffuse lung disease with slight improvement, likely resolving COVID 19 pneumonia. 2. Large right pelvic hematoma without significant change in size. Tiny foci of gas in the left aspec t of the hematoma are of unclear origin and could represent gas in the urinary bladder versus small f ocus of infection in the pelvic hematoma. 3. Persistent hematoma in the right rectus abdominis muscle. 4. Small right pleural effusion. Reviewed, dictated and finalized at location B. VASCULAR TECH IMPRESSION: 1. Diffuse lung disease with slight improvement, likely resolving COVID 19 pneu monia. 2. Large right pelvic hematoma without significant change in size. Tiny foci of gas in the left aspect of the hematoma are of unclear origin and could represe nt gas in the urinary bladder versus small focus of infection in the pelvic hem atoma. 3. Persistent hematoma in the right rectus abdominis muscle. 4. Small right pleural effusion.
--- NOTE | ~2021-08-21 | XR_ITS ---
XR chest 1V portable 09/03/2021 05:41 Indication: Respiratory failure Procedure: AP portable chest Comparison: Comparison to multiple prior studies sequentially, with oldest reviewed study dated 12/2021. Findings: Endotracheal tube tip 2.5 cm above the marilu. NG tube in the stomach. Cardiomegaly. Mild i nterstitial edema. Shallow inspiration. No pneumothorax. Impression: 1: Cardiomegaly with interstitial edema. Cannot exclude superimposed pneumonia. Reviewed, dictated and finalized at location A. CLEANER Impression: 1: Cardiomegaly with interstitial edema. Cannot exclude superimposed pneumonia.
--- NOTE | ~2021-08-21 | XR_ITS ---
XR chest 1V portable 09/30/2021 05:43 Indication: Respiratory failure Procedure: AP portable chest Comparison: Comparison to multiple prior studies sequentially, with oldest reviewed study dated 09/2021. Findings: Endotracheal tube tip 3.5 cm above the marilu. NG tube in the stomach. Bilateral percutaneo us nephrostomy catheters are present. There is a left IJ central venous catheter tip in the SVC, slig htly lateral to expected location, although position unchanged. Shallow inspiration. Stable diffuse b ilateral airspace disease. Impression: 1: Stable bilateral diffuse airspace disease which may represent pneumonia or edema. Reviewed, dictated and finalized at location A. HEEL FINISHER Impression: 1: Stable bilateral diffuse airspace disease which may represent pneumonia or e josr.
--- NOTE | ~2021-08-21 | XR_ITS ---
XR chest 1V portable 09/10/2021 06:31 Indication: Respiratory failure Procedure: AP portable chest Comparison: Comparison to multiple prior studies sequentially, with oldest reviewed study dated 09/07. Findings: Endotracheal tube tip 3.3 cm above the marilu. No significant change to extensive patchy bi lateral airspace disease. NG tube in the stomach. Right IJ central venous catheter tip in right atriu m. There are bilateral percutaneous nephrostomy catheters. Impression: 1: Extensive patchy bilateral airspace disease unchanged, consistent with pneumonia. Reviewed, dictated and finalized at location A. ER HAND Impression: 1: Extensive patchy bilateral airspace disease unchanged, consistent with pneum onia.
--- NOTE | ~2021-08-21 | XR_ITS ---
EXAMINATION: XR chest 1V portable DATE: 09/04/2021 06:16 INDICATION: Respiratory failure TECHNIQUE: frontal view of the chest was obtained. COMPARISON: Chest radiograph dated 09/03/2021 FINDINGS: Endotracheal tube tip 3.3 cm above the marilu. Nasogastric tube tip in proximal side port in the body of the stomach. Left upper extremity peripherally inserted central venous catheter (PICC) tip at th e mid superior vena cava. Lung volumes remain small with patchy airspace opacities throughout both lungs. No pleural effusion o r pneumothorax. Mild cardiomegaly. Percutaneous nephrostomy tubes projecting over the left and right upper quadrants. IMPRESSION: 1. Small lung volumes with diffuse patchy bilateral lung disease which could represent pneumonia, ate lectasis, pneumonia or edema or some combination thereof. 2. Mild cardiomegaly. Reviewed, dictated and finalized at location A. NOLOGIST IMPRESSION: 1. Small lung volumes with diffuse patchy bilateral lung disease which could re present pneumonia, atelectasis, pneumonia or edema or some combination thereof. 2. Mild cardiomegaly.
--- NOTE | ~2021-08-21 | XR_ITS ---
EXAMINATION: XR chest 1V portable EXAM DATE: 08/24/2021 05:55 INDICATION: Dyspnea. TECHNIQUE: Portable AP frontal chest x-ray was obtained. Comparison is made to prior examination from 08/21/2021, 06/13/2021. FINDINGS: Compared to x-ray 3 days ago, there is extensive right-sided, moderate left-sided acute ill -defined airspace disease consistent with COVID pneumonia. Accounting for differences in technique, t here is no significant interval change. No pneumothorax or pleural effusion. Low lung volume. Mild ca rdiomegaly. There are no osseous abnormalities identified. IMPRESSION: 1. Extensive right, moderate left COVID pneumonia unchanged. Reviewed, dictated and finalized at location A. MS MANAGER
--- NOTE | ~2021-08-21 | XR_ITS ---
EXAMINATION: XR chest 1V portable DATE: 09/05/2021 05:41 INDICATION: Respiratory failure TECHNIQUE: frontal view of the chest was obtained. COMPARISON: Chest radiograph dated 09/04/2021 FINDINGS: Endotracheal tube tip 3.5 cm above the marilu. Nasogastric tube tip in proximal side port in the body of the stomach. Left upper extremity peripherally inserted central venous catheter (PICC) tip at th e superior vena cava. Bilateral percutaneous nephrostomy tubes projecting over expected positions. Small lung volumes with persistent mild relative elevation of the left hemidiaphragm. Increasing opac ities throughout both lungs. No pneumothorax. Cardiomegaly. IMPRESSION: 1. Small lung volumes with increasing diffuse bilateral lung disease which could represent worsening pneumonia, atelectasis, pulmonary edema, small pleural effusions or some combination thereof. 2. Cardiomegaly. Reviewed, dictated and finalized at location A. ER AND UNLOADER IMPRESSION: 1. Small lung volumes with increasing diffuse bilateral lung disease which coul d represent worsening pneumonia, atelectasis, pulmonary edema, small pleural ef fusions or some combination thereof. 2. Cardiomegaly.
--- NOTE | ~2021-08-21 | XR_ITS ---
EXAMINATION: XR abdomen NG/feed tube insert DATE: 09/27/2021 06:06 INDICATION: Nasogastric tube placement. TECHNIQUE: A semiupright view of the abdomen was obtained. COMPARISON: Abdomen single view 09/24/2021 FINDINGS: The lower abdomen is excluded. There are no dilated loops of bowel. The nasogastric tube ti p is in the distal stomach. Bilateral nephrostomy tubes are noted. The endotracheal tube tip is 4.0 c m above the marilu. A left upper extremity peripherally inserted central venous catheter (PICC) is se en with tip at the superior cavoatrial junction. A right internal jugular central venous catheter is seen with tip in the right atrium. The lung volumes are small with relative elevation of left hemidia phragm. There are interstitial and airspace opacities in all lung zones bilaterally. IMPRESSION: 1. Nasogastric tube tip in the distal stomach. 2. Diffuse lung disease, consistent with pulmonary edema versus pneumonia. Reviewed, dictated and finalized at location E. ICAL RESEARCH NURSE COORDINATOR
--- NOTE | ~2021-08-21 | CT_ITS ---
EXAMINATION: CT guide nephro tube pl BI DATE: 09/02/2021 16:54 INDICATION: Bilateral hydronephrosis. TECHNIQUE: The procedure including the risks, benefits, and alternatives was discussed with the patie nt's . Risks discussed included bleeding and infection. He understood the risks and benefits a nd agreed to proceed. The skin overlying the kidneys was prepped and draped in usual sterile fashion. Anesthetic was administered with 1% lidocaine subcutaneously. An 18 gauge trochar needle was insert ed into a calyx of the left kidney under CT guidance. The needle was exchanged over a wire for 6 Fren ch, 8 Tunisian, and 9 Tunisian dilators and then for an 8.5 Tunisian pigtail catheter under CT guidance. An 18 gauge trochar needle was inserted into a calyx of the right kidney under CT guidance. The needl e was exchanged over a wire for 6 Tunisian, 8 Tunisian, and 9 Tunisian dilators and then for an 8.5 Tunisian pigtail catheter under CT guidance. The catheters were stitched to the skin. Dressings were applied. The mA was adjusted according to patient size. Iterative reconstruction technique was employed. The d ose-length product was 364.67 mGy-cm. There were no immediate complications. FINDINGS: CT images demonstrate the left nephrostomy tube in the renal pelvis. CT images demonstrate the right nephrostomy tube in the renal pelvis. IMPRESSION: 1. Successful CT-guided left nephrostomy tube placement]. 2. Successful CT-guided right nephrostomy tube placement. Reviewed, dictated and finalized at location A. ING MACHINE OPERATOR
--- NOTE | ~2021-08-21 | XR_ITS ---
XR chest 1V portable DATE: 09/15/2021 06:21 INDICATION: Respiratory failure TECHNIQUE: Portable AP chest on 09/15/2021 at 0517 hours COMPARISON: 09/14/2021 portable AP chest FINDINGS: ET tube and NG tube have been removed since 09/14/2021. Right internal jugular central venous catheter in right atrium. Left upper extremity PIC catheter petty es a short wide U turn at the proximal superior vena cava without apparent kink. Bilateral nephrostomy catheters are again noted. Allergies scattered patchy bilateral pulmonary infiltrates are again noted. IMPRESSION: Removal of ET and NG tubes Persistent scattered patchy bilateral pulmonary infiltrates Reviewed, dictated and finalized at location A. ENTER STREETCAR
--- NOTE | ~2021-08-21 | XR_ITS ---
EXAMINATION: XR chest 1V portable EXAM DATE: 08/27/2021 06:16 INDICATION: Dyspnea, cough. TECHNIQUE: Portable AP frontal chest x-ray was obtained. Comparison is made to prior examination from 08/24/2021, 08/21/2021. FINDINGS: Diffuse right greater than left airspace disease, appearance consistent with COVID pneumoni a. There is no significant interval change. There is cardiomegaly. No pneumothorax or sizable pleural effusion. Some thoracic spondylosis. IMPRESSION: 1. Diffuse COVID pneumonia unchanged. 2. Cardiomegaly. Reviewed, dictated and finalized at location A. NATAL BREASTFEEDING ASSISTANT
--- NOTE | ~2021-08-21 | XR_ITS ---
EXAMINATION: XR chest 1V portable DATE: 09/26/2021 06:08 INDICATION: Acute respiratory failure from bilateral pneumonia. TECHNIQUE: A single frontal view of the chest was obtained. COMPARISON: Chest single view 09/25/2021 FINDINGS: The lung volumes are small. There are interstitial and airspace opacities in all lung zones bilaterally with a peripheral predominance. No pleural effusion or pneumothorax. The heart size is n ormal. The endotracheal tube tip is 1.6 cm above the marilu. The nasoenteric tube tip is beyond the i nferior margin of the radiograph, but at least to the stomach. There are bilateral nephrostomy tubes. A left upper extremity peripherally inserted central venous catheter (PICC) is seen with tip at the superior cavoatrial junction. A right internal jugular central venous catheter is seen with tip in th e right atrium. IMPRESSION: 1. Stable small lung volumes with stable diffuse lung disease, consistent with pulmonary edema versus pneumonia. Reviewed, dictated and finalized at location A. IT ANALYSIS MANAGER
--- NOTE | ~2021-08-21 | XR_ITS ---
XR chest 1V portable DATE: 09/14/2021 06:23 INDICATION: Respiratory failure TECHNIQUE: Portable AP chest on 09/14/2021 at 0526 hours COMPARISON: 09/13/2021 portable AP chest FINDINGS: ET tube in satisfactory position 3 cm above marilu. NG tube in gastric fundus. Left upper stomach the catheter tip situated at superior cavoatrial junction area. Right internal jug ular central venous catheter tip is in the right atrium. Bilateral nephrostomy tubes. Cardiomegaly is suggested. Diffuse bilateral pulmonary infiltrates, right greater than left, appear mildly improved since 022 IMPRESSION: Mild improvement of bilateral pulmonary infiltrates since 09/13/2021 Reviewed, dictated and finalized at location A. B2B SALES PROFESSIONAL
--- NOTE | ~2021-08-21 | XR_ITS ---
XR chest 1V portable DATE: 09/12/2021 06:33 INDICATION: Respiratory failure TECHNIQUE: Portable AP chest on 09/12/2021 at 0525 hours COMPARISON: 09/11/2021 portable AP chest at 0502 hours FINDINGS: ET tube in satisfactory position 2.3 cm above marilu. NG tube in gastric fundus. Left upper extremity PIC catheter overlies superior cavoatrial junction approximately. Right internal jugular central venous catheter overlies upper right atrium. Heart size is not optimally evaluated on AP projection because of magnification. There is pulmonary v ascular congestion and redistribution. There are scattered patchy infiltrates throughout the right ramon ng field and left perihilar and left mid and lower lung zones. Division diagnosis includes pulmonary edema, pneumonia. IMPRESSION: Congestive changes and increased bilateral infiltrates since 09/02/2021. Consider congestiv e heart failure and pulmonary edema in addition to pneumonia Reviewed, dictated and finalized at location A. NICAL AIDE IMPRESSION: Congestive changes and increased bilateral infiltrates since 09/02/19 22. Consider congestive heart failure and pulmonary edema in addition to pneumo cecile
--- NOTE | ~2021-08-21 | CT_ITS ---
EXAMINATION: CT chest abdomen pelvis w con DATE: 08/30/2021 16:25 INDICATION: Shortness of breath. Leukocytosis. TECHNIQUE: Computed tomography (CT) of the chest, abdomen, and pelvis was performed with 100 mL Omnip aque 350 intravenous contrast. Automated exposure control and iterative reconstruction technique were employed. The dose-length product was 1758.69 mGy-cm. COMPARISON: Chest CT 08/25/2021 FINDINGS: CHEST CT: Motion artifact is noted. There are patchy airspace and groundglass opacities involving all lobes. Th ere are scattered areas of septal thickening in the lungs. No pleural effusion. The heart size is nor mal. No pericardial effusion. A left upper extremity peripherally inserted central venous catheter (P ICC) is seen with tip at the superior cavoatrial junction. There is a small sliding hiatal hernia. Th ere is mild thoracic spondylosis. There is mild chronic anterior wedging of multiple vertebral bodies . ABDOMEN/PELVIS CT: Motion artifact is noted. The liver, gallbladder, and pancreas are normal. There are areas of periphe ral hypoenhancement in the spleen, consistent with infarcts. There is a small volume of perisplenic a scites. The adrenal glands are normal. The kidneys are normal, but motion artifact decreases sensitiv ity. The bladder is decompressed by a Viera catheter. There is a large hematoma to the right of the b ladder with extension of hematoma into the peritoneum. There are 2 foci of hyperdensity at the left s keyla of the hematoma suspicious for active extravasation. The hematoma displaces the bladder to the le ft. There is a hematoma enlarging the rectus abdominis muscles, right worse than left. There are no d ilated loops of bowel. The appendix is not visualized. There is severe lower lumbar spondylosis. IMPRESSION: 1. Large hematoma in right pelvis extending into the peritoneum with two foci of active extravasation of contrast. 2. Hematomas in the rectus abdominis muscles, right worse than left. 3. Splenic infarcts. Small volume of perisplenic ascites. 4. Diffuse lung disease, consistent with COVID-19 pneumonia. Reviewed, dictated and finalized at location A. SEALING FUEL TANK BUILDER IMPRESSION: 1. Large hematoma in right pelvis extending into the peritoneum with two foci o f active extravasation of contrast. 2. Hematomas in the rectus abdominis muscles, right worse than left. 3. Splenic infarcts. Small volume of perisplenic ascites. 4. Diffuse lung disease, consistent with COVID-19 pneumonia.
--- NOTE | ~2021-08-21 | XR_ITS ---
EXAMINATION: XR chest 1V portable EXAM DATE: 09/01/2021 06:20 INDICATION: Respiratory failure. TECHNIQUE: Portable AP frontal chest x-ray was obtained. Comparison is made to prior examination from 08/31/2021. FINDINGS: Endotracheal tube tip is 3 centimeters above the marilu. There is a left-sided PICC line. Feeding tube is in position. Low lung volume. Moderate amount of bilateral pneumonia or edema. There are no sizable pleural effus ions. There is no pneumothorax suspected. The cardiomediastinal silhouette is prominent but magni fied on this AP technique. The bones and soft tissues are unremarkable. There is no significant interval change compared to prior exam. IMPRESSION: 1. Line and tube(s) in position. 2. Stable airspace disease and other findings as above. Reviewed, dictated and finalized at location G. CULTURE LABORER
--- NOTE | ~2021-08-21 | CT_ITS ---
EXAMINATION: CT brain wo con EXAM DATE: 09/30/2021 19:10 INDICATION: Encephalopathy . TECHNIQUE: Spiral CT of the head was performed without contrast. Axial, coronal and sagittal images were reviewed. The dose-length product (DLP) for this examination was 681.00 mGy-cm. The exposure w as tailored according to patient size, and iterative reconstruction (ASIR) was used as additional dos e reduction technique. Comparison is made to prior examination from 09/01/2021. FINDINGS: There is no acute intraparenchymal hemorrhage. No evidence of intraparenchymal brain mass lesion. No evidence of acute infarction. There is no mass effect or midline shift. The ventricles are normal in size. There are no extra-axial collections. There are no acute calvarial fractures. T he orbits are unremarkable. Soft tissue is unremarkable. The visualized sinuses and mastoid air lisa ls are well aerated. There is no significant interval change. IMPRESSION: 1. No acute intracranial findings. Reviewed, dictated and finalized at location G. UCT MARKETING EXECUTIVE
--- NOTE | ~2021-08-21 | XR_ITS ---
EXAMINATION: XR fl Dobhoff insert/rad w img DATE: 09/18/2021 09:21 INDICATION: Dysphagia. TECHNIQUE: I placed a nasoenteric tube under fluoroscopic guidance. Fluoroscopy exposure time was 0.6 minutes. The number of images was 1. COMPARISON: CT abdomen and pelvis 09/02/2021 FINDINGS: The nasoenteric tube tip is in the stomach. IMPRESSION: 1. Fluoroscopy guided nasoenteric tube placement with tip in the stomach. Reviewed, dictated and finalized at location A. RVISOR PHOTOENGRAVING
--- NOTE | ~2021-08-21 | CT_ITS ---
EXAMINATION: CT abdomen pelvis wo con DATE: 09/02/2021 11:24 INDICATION: Acute kidney injury. Hydronephrosis. TECHNIQUE: Computed tomography (CT) of the abdomen and pelvis was performed without intravenous contr ast. Automated exposure control and iterative reconstruction technique were employed. The dose-length product was 1636.40 mGy-cm. COMPARISON: CT 08/30/2021 FINDINGS: The visualized portions of the lung bases demonstrate patchy airspace and groundglass opaci ties and septal thickening in all lobes. There are small pleural effusions. The heart size is normal. No pericardial effusion. There is a catheter tip in right atrium. The nasogastric tube tip is in the stomach. The liver is normal. There is peripheral low attenuation in the spleen, consistent with inf arcts. There is contrast in the gallbladder, which is normal in size. The pancreas and adrenal glands are normal. There is moderate bilateral hydronephrosis and hydroureter secondary to a large volume o f hematoma in the pelvis predominantly centered to the right of midline. The hematoma is predominantl y extraperitoneal. There is leftward displacement of the bladder, which is decompressed by a Viera ca theter. There is enlargement of the rectus abdominis muscles, right worse than left, consistent with hematomas. There is a moderate volume of hemoperitoneum including around the liver and spleen. Body w all edema is noted. There are no pathologically enlarged lymph nodes. There is a left common femoral central venous catheter with tip in left external iliac vein. There is moderate thoracic spondylosis and severe lower lumbar spondylosis. IMPRESSION: 1. Worsened diffuse lung disease, at least predominantly pneumonia. 2. Small pleural effusions, new from 08/30/2021. 3. Large volume of extraperitoneal hematoma in the pelvis centered to the right of midline, mildly wo rsened from 08/30/21. Moderate volume of hemoperitoneum, worsened from 08/30/21. 4. Moderate bilateral hydronephrosis and hydroureter secondary to mass effect from the pelvic hematom a, worsened from 08/30/21. 5. Hematomas in the rectus abdominis muscles, right worse than left, stable from 08/30/21. 6. Splenic infarcts again seen. Reviewed, dictated and finalized at location A. IAL INVESTIGATOR IMPRESSION: 1. Worsened diffuse lung disease, at least predominantly pneumonia. 2. Small pleural effusions, new from 08/30/2021. 3. Large volume of extraperitoneal hematoma in the pelvis centered to the right of midline, mildly worsened from 08/30/21. Moderate volume of hemoperitoneum, wo rsened from 08/30/21. 4. Moderate bilateral hydronephrosis and hydroureter secondary to mass effect f rom the pelvic hematoma, worsened from 08/30/21. 5. Hematomas in the rectus abdominis muscles, right worse than left, stable fro m 08/30/21. 6. Splenic infarcts again seen.
--- NOTE | ~2021-08-21 | US_ITS ---
EXAMINATION: US renal BI DATE: 09/01/2021 13:18 INDICATION: Elevated creatinine TECHNIQUE: Multiple ultrasound grayscale images of the kidneys were obtained. COMPARISON: None. FINDINGS: The right kidney measures 10.4 x 5.2 x 5.1 cm. The left kidney measures 10.9 x 5.7 x 6.1 cm. The kidn eys demonstrate normal echogenicity. There is mild bilateral hydronephrosis and hydroureter. No stone s identified. There is a 16.8 x 12.3 x 13.1 cm hypoechoic region in the pelvis which appears to corre spond to a large hematoma on prior CT. The bladder is nonvisualized, likely decompressed with a Viera catheter reportedly in place. Small amount of anechoic perihepatic ascites. IMPRESSION: 1. Mild bilateral hydroureteronephrosis. 2. Large pelvic hematoma. 3. Small amount of perihepatic ascites. Reviewed, dictated and finalized at location B. RY STEWARD/STEWARDESS
--- NOTE | ~2021-08-21 | CT_ITS ---
EXAMINATION: CTA chest PE protocol DATE: 08/21/2021 17:03 INDICATION: Shortness of breath, cough. Covid-positive. Elevated d-dimer. TECHNIQUE: Computed tomography angiography (CTA) of the chest was performed with 100 mL Omnipaque-350 intravenous contrast timed to evaluate the pulmonary arteries. Coronal maximum intensity projection 3D-reconstructions were created by the technologist. Automated exposure control and iterative reconst ruction technique were employed. Exam dose: 752.03 mGy-cm total exam DLP. COMPARISON: 08/21/2021 portable AP chest FINDINGS: There is diagnostic contrast enhancement of the pulmonary ligament evidence of pulmonary em bolism. No thoracic aortic aneurysm or dissection. Heart size is within normal range. There are scattered extensive groundglass infiltrates throughout both lungs, most consistent with Cov id pneumonia. No pericardial or pleural effusion. The adrenal glands are unremarkable. Small sliding hiatal hernia. Diffuse idiopathic skeletal hyperostosis of the thoracic spine. No suspicious osteolytic or osteoblas tic lesions are noted. IMPRESSION: Extensive scattered bilateral groundglass pulmonary infiltrates, most likely due to Covi d pneumonia No evidence of pulmonary embolism Reviewed, dictated and finalized at Location A. Reviewed, dictated and finalized at location A. O ROUTER IMPRESSION: Extensive scattered bilateral groundglass pulmonary infiltrates, m ost likely due to Covid pneumonia No evidence of pulmonary embolism
--- NOTE | ~2021-08-21 | XR_ITS ---
XR abdomen/kub 1V INDICATION: Evaluate feeding tube position. TECHNIQUE: Limited KUB perform for evaluating feeding tube . COMPARISON: 08/30/2021 FINDINGS: Feeding tube tip in the stomach. Visualized bowel gas pattern is unremarkable. IMPRESSION: 1: Feeding tube tip in the stomach. Reviewed, dictated and finalized at location B. GING INSPECTOR
--- NOTE | ~2021-08-21 | CT_ITS ---
EXAMINATION: CT chest abdomen pelvis wo con EXAM DATE: 09/30/2021 19:10 INDICATION: Pelvic hematoma, Fevers . TECHNIQUE: Spiral CT of the chest and abdomen was performed without contrast. Axial, coronal and sa gittal images chest and abdomen were reviewed. Coronal maximum intensity pixel images of chest revie wed. The dose-length product (DLP) for this examination was 1765.53 mGy-cm. The exposure was tailor ed according to patient size (auto mA exposure control), and iterative reconstruction (ASIR) was used as additional dose reduction technique. Comparison is made to prior examination from 09/25/2021. FINDINGS: CHEST: Endotracheal tube in position. Subpleural banding, improvement in airspace disease compared t o previous examination. There are no pleural or pericardial effusions. Tracheobronchial tree is pa tent. There is no mediastinal, hilar or axillary lymphadenopathy. There is no pneumothorax. The re is cardiomegaly. Pacemaker/AICD device. Left-sided subclavian line. ABDOMEN: Nasogastric tube, bilateral nephrostomy tubes and Viera catheter are in position. Again ther e is pelvic mass-like region, region measuring about 17 x 13 cm. This does not appear significantly c hanged. There is much smaller right rectus abdominalis intramuscular hematoma. The liver, spleen, adr enal glands and pancreas are unremarkable. Gallbladder is unremarkable. No biliary obstruction. Th ere is no nephrolithiasis or hydronephrosis. There is no retroperitoneal lymphadenopathy. Probable identification of a normal appendix. No pericecal inflammation. The stomach and small pippa l are unremarkable. There is expected amount of colonic stool. No free intraperitoneal gas. Ther e are no osteoblastic or osteolytic lesions identified. IMPRESSION: 1. Large pelvic hematoma and small right rectus abdominalis hematoma unchanged in size. 2. Mild improvement in bilateral pneumonia and atelectasis. 3. Cardiomegaly. 4. Tubes in position. Reviewed, dictated and finalized at location G. NE SERVICE OPERATOR
--- NOTE | ~2021-08-21 | XR_ITS ---
XR chest ET placement 09/22/2021 14:47 Indication: Status post intubation. Procedure: AP portable chest Comparison: Comparison to multiple prior studies sequentially, with oldest reviewed study dated 09/16. Findings: Interval placement of endotracheal tube which is directed into the right mainstem bronchus. Recommend retraction approximately 5-6 cm. There is diffuse bilateral airspace disease. No significa nt effusion or pneumothorax. There is a large bore central venous catheter tip near the cavoatrial ju nction. PICC line tip in the SVC. There are bilateral percutaneous nephrostomy catheters. Impression: 1: Endotracheal tube directed into the right mainstem bronchus. Recommend endotracheal tube retractio n approximately 5-6 cm. 2: Bilateral airspace disease which may represent pneumonia or edema. Reviewed, dictated and finalized at location B. IALIZED LANGUAGE INSTRUCTOR Impression: 1: Endotracheal tube directed into the right mainstem bronchus. Recommend endot cooper tube retraction approximately 5-6 cm. 2: Bilateral airspace disease which may represent pneumonia or edema.
--- NOTE | ~2021-08-21 | XR_ITS ---
XR chest 1V portable 10/01/2021 06:13 Indication: Respiratory failure Procedure: AP portable chest Comparison: Comparison to multiple prior studies sequentially, with oldest reviewed study dated 10/2021. Findings: Stable cardiomediastinal silhouette. Endotracheal tube tip 3.9 cm above the marilu. NG tube in the stomach. Stable diffuse bilateral airspace disease. PICC line and central line tips in the SV C. No significant pleural effusion or pneumothorax. Impression: 1: Stable diffuse bilateral airspace disease which may represent edema or pneumonia. Reviewed, dictated and finalized at location A. CH DRAWER Impression: 1: Stable diffuse bilateral airspace disease which may represent edema or pneum onia.
--- NOTE | ~2021-08-21 | XR_ITS ---
EXAMINATION: XR chest 1V portable DATE: 09/24/2021 06:10 INDICATION: Acute respiratory failure. TECHNIQUE: A single frontal view of the chest was obtained. COMPARISON: Chest single view 09/23/2021 FINDINGS: There is mild elevation of left hemidiaphragm. The patient is rotated to her left. There ar e airspace and interstitial opacities throughout the lungs bilaterally. No pleural effusion or pneumo thorax. The heart size is normal. The endotracheal tube tip is 2.3 cm above the marilu. A right inter nal jugular central venous catheter is seen with tip in the superior vena cava. The nasoenteric tube tip is in the stomach. A left upper extremity peripherally inserted central venous catheter (PICC) is seen with tip at the superior cavoatrial junction. Partially visualized are bilateral nephrostomy tu bes. IMPRESSION: 1. Stable diffuse lung disease, consistent with pulmonary edema versus pneumonia. Reviewed, dictated and finalized at location A. A PAINTER IMPRESSION: 1. Stable diffuse lung disease, consistent with pulmonary edema versus pneumoni a.
--- NOTE | ~2021-08-21 | XR_ITS ---
EXAMINATION: XR chest 1V portable DATE: 09/23/2021 06:03 INDICATION: Acute respiratory failure from bilateral pneumonia. TECHNIQUE: A single frontal view of the chest was obtained. COMPARISON: Chest single view 09/22/2021 FINDINGS: The patient is rotated to her left. There is mild elevation of left hemidiaphragm. There ar e airspace and interstitial opacities throughout the lungs bilaterally. No pleural effusion or pneumo thorax. The heart size is normal. The endotracheal tube tip is 2.3 cm above the marilu. A right inter nal jugular central venous catheter is seen with tip in the right atrium. The nasoenteric tube tip is in the stomach. There are bilateral nephrostomy tubes. A left upper extremity peripherally inserted central venous catheter (PICC) is seen with tip in the superior vena cava. IMPRESSION: 1. Stable diffuse lung disease, consistent with pulmonary edema versus pneumonia. Reviewed, dictated and finalized at location A. H MAKER IMPRESSION: 1. Stable diffuse lung disease, consistent with pulmonary edema versus pneumoni a.
--- NOTE | ~2021-08-21 | XR_ITS ---
EXAMINATION: XR chest port-a-cath/central DATE: 09/05/2021 10:40 INDICATION: Dialysis catheter placement TECHNIQUE: frontal view of the chest was obtained. COMPARISON: 09/05/2021 at 5:25 AM FINDINGS: Endotracheal tube tip 4.1 cm above the marilu. Interval placement of a large-bore right internal jug ular central venous catheter with distal tip in the high right atrium. Left upper extremity periphera lly inserted central venous catheter (PICC) which appears withdrawn slightly and with repositioning o f the tip which now extends to the superior vena cava before making a band either back into the left brachiocephalic vein or potentially into the azygos vein. Nasogastric tube tip and proximal side port in the body of the stomach. Bilateral percutaneous nephrostomy with formed loop is projecting over t he expected location of the bilateral renal pelvises. Is been some improved aeration of the lungs with persistent scattered patchy bilateral airspace opaci ties relatively sparing the left upper lung zone. Indistinct margins to the elevated left hemidiaphra gm suggesting possible small left pleural effusion. Cardiomegaly. IMPRESSION: 1. Newly placed right internal jugular central venous catheter tip in the high right atrium. No pneum othorax. 2. Slight withdrawal and repositioning the tip of a right peripherally inserted central venous cathet er with tip now either within the right brachiocephalic vein or the azygos vein. Would consider rapid saline flush through the catheter which oftentimes can reposition the tip into the superior vena cav a. 3. Slight improvement in diffuse bilateral lung disease sparing the left upper lung zone which could represent pneumonia, pulmonary edema, atelectasis or small left pleural effusion or some combination thereof. 4. Cardiomegaly. Reviewed, dictated and finalized at location A. ORY ENGINEER IMPRESSION: 1. Newly placed right internal jugular central venous catheter tip in the high right atrium. No pneumothorax. 2. Slight withdrawal and repositioning the tip of a right peripherally inserted central venous catheter with tip now either within the right brachiocephalic v ein or the azygos vein. Would consider rapid saline flush through the catheter which oftentimes can reposition the tip into the superior vena cava. 3. Slight improvement in diffuse bilateral lung disease sparing the left upper lung zone which could represent pneumonia, pulmonary edema, atelectasis or smal l left pleural effusion or some combination thereof. 4. Cardiomegaly.
--- NOTE | ~2021-08-21 | US_ITS ---
EXAMINATION: US venous doppler [facility] DATE: 09/22/2021 16:42 INDICATION: Lower limb edema. TECHNIQUE: Grayscale ultrasound images without and with compression and Doppler ultrasound images of the bilateral lower extremity veins were obtained. COMPARISON: Ultrasound 08/31/2021 FINDINGS: Some veins were not well evaluated due to patient motion. The visualized portions of right femoral ve in, peroneal veins, and posterior tibial veins are patent. There is thrombus in left common femoral vein. The visualized portions of left common femoral vein, p rofunda femoral vein, femoral vein, posterior tibial veins, and greater saphenous vein outflow are pa tent. IMPRESSION: 1. Acute deep vein thrombosis involving left common femoral vein. Some veins were not well evaluated due to patient motion. Reviewed, dictated and finalized at location A. D COLLECTOR IMPRESSION: 1. Acute deep vein thrombosis involving left common femoral vein. Some veins w ere not well evaluated due to patient motion.
--- NOTE | ~2021-08-21 | XR_ITS ---
EXAMINATION: XR chest 1V portable DATE: 09/29/2021 06:10 INDICATION: Respiratory failure. TECHNIQUE: A single frontal view of the chest was obtained. COMPARISON: Chest single view 09/28/2021, chest CT 09/25/2021 FINDINGS: The patient is rotated to her left. The lung volumes are small. There are interstitial and airspace opacities in all lung zones bilaterally with a peripheral predominance. No pleural effusion or pneumothorax. The heart size is normal. The endotracheal tube tip is 2.9 cm above the marilu. A le ft upper extremity peripherally inserted central venous catheter (PICC) is seen with tip at the super ior cavoatrial junction. The nasogastric tube tip is in the stomach. Bilateral nephrostomy tubes are noted. IMPRESSION: 1. Stable diffuse lung disease with small volumes, consistent with COVID-19 pneumonia versus acute re spiratory distress syndrome (ARDS). Reviewed, dictated and finalized at location E. X RAY EQUIPMENT TESTER IMPRESSION: 1. Stable diffuse lung disease with small volumes, consistent with COVID-19 pne umonia versus acute respiratory distress syndrome (ARDS).
--- NOTE | ~2021-08-21 | XR_ITS ---
EXAMINATION: XR chest 1V portable DATE: 09/07/2021 05:45 INDICATION: Respiratory failure TECHNIQUE: frontal view of the chest was obtained. COMPARISON: Chest radiograph dated 09/05/2021 FINDINGS: Endotracheal tube tip 2.7 cm above the marilu. Nasogastric tube tip in proximal side port in the stom ach below the elevated left hemidiaphragm. Large bore right internal jugular central venous catheter with distal tip at the high right atrium. Left upper extremity peripherally inserted central venous c atheter (PICC) tip at the caudal superior vena cava. Percutaneous nephrostomy tubes projecting over the left and right upper quadrants. No significant change accounting for differences in technique in patchy bilateral lung disease relati vely sparing the left upper lung zone. Possible small left pleural effusion with obscuration of the l eft hemidiaphragm. No pneumothorax. Cardiomegaly. IMPRESSION: 1. Unchanged diffuse bilateral lung disease relatively sparing the left upper lung zone which could r epresent pneumonia, pulmonary edema, atelectasis or some combination thereof. 2. Possible small left pleural effusion. 3. Cardiomegaly. Reviewed, dictated and finalized at location A. W MACHINE OPERATOR IMPRESSION: 1. Unchanged diffuse bilateral lung disease relatively sparing the left upper l mendoza zone which could represent pneumonia, pulmonary edema, atelectasis or some combination thereof. 2. Possible small left pleural effusion. 3. Cardiomegaly.
--- NOTE | ~2021-08-21 | XR_ITS ---
XR chest 1V portable 09/22/2021 14:06 Indication: Increased oxygen requirements Procedure: AP portable chest Comparison: 09/15/2021 Findings: Patchy bilateral airspace disease, compatible with pneumonia. PICC line tip in the SVC. Lar ge bore right IJ central venous catheter tip near the cavoatrial junction. No significant effusion or pneumothorax. No acute osseous abnormality. Impression: 1: Patchy bilateral airspace disease, compatible with pneumonia. Reviewed, dictated and finalized at location B. NESS PROCESS EXPERT Impression: 1: Patchy bilateral airspace disease, compatible with pneumonia.
--- NOTE | ~2021-08-21 | XR_ITS ---
EXAMINATION: XR chest 1V portable DATE: 09/28/2021 06:17 INDICATION: Respiratory failure. TECHNIQUE: A single frontal view of the chest was obtained. COMPARISON: Chest single view 09/27/2021 FINDINGS: The patient is rotated to her left. The lung volumes are small. There are airspace and inte rstitial opacities in all lung zones bilaterally. No pleural effusion or pneumothorax. The heart size is normal. The endotracheal tube tip is 4.1 cm above the marilu. The nasogastric tube tip is beyond the inferior margin of the radiograph, but at least to the stomach. A right internal jugular central venous catheter is seen with tip in the right atrium. A left upper extremity peripherally inserted ce ntral venous catheter (PICC) is seen with tip in the superior vena cava. Bilateral nephrostomy tubes are noted. IMPRESSION: 1. Stable diffuse lung disease with small lung volumes, consistent with pulmonary edema versus pneumo cecile. Reviewed, dictated and finalized at location E. K9 HANDLER IMPRESSION: 1. Stable diffuse lung disease with small lung volumes, consistent with pulmona ry edema versus pneumonia.
--- NOTE | ~2021-08-21 | XR_ITS ---
EXAMINATION: XR chest 1V portable DATE: 09/08/2021 06:33 INDICATION: Respiratory failure. TECHNIQUE: A single frontal view of the chest was obtained. COMPARISON: Chest single view 09/07/2021, CT abdomen and pelvis 09/02/2021 FINDINGS: There are airspace opacities in all lung zones bilaterally. There are small pleural effusio ns. No pneumothorax. The heart size is normal. The endotracheal tube tip is 2.4 cm is above the keren a. A left upper extremity peripherally inserted central venous catheter (PICC) is seen with tip at th e superior cavoatrial junction. The nasogastric tube tip is in the stomach. There are bilateral nephr ostomy tubes. IMPRESSION: 1. Stable diffuse lung disease, consistent with COVID-19 pneumonia. 2. Stable small pleural effusions. Reviewed, dictated and finalized at location B. LAPPING MACHINE OPERATOR
--- NOTE | ~2021-08-21 | XR_ITS ---
XR chest 1V portable DATE: 09/13/2021 06:03 INDICATION: Respiratory failure TECHNIQUE: Portable AP chest on 09/13/2021 0515 hours COMPARISON: 09/12/2021 portable AP chest at 0525 hours FINDINGS: ET tube in satisfactory position 2.3 cm above marilu. NG tube coiled once in gastric fundus . Right internal jugular central venous catheter tip overlies the right atrium. Left upper extremity ca theter overlies the proximal superior vena cava. Bilateral nephrostomy catheters overlie the expected position of the kidneys. Cardiomegaly. Pulmonary vascular congestion and redistribution. Patchy bilateral pulmonary infiltrate s are noted diffusely through the right lung and to lesser extent in the left mid and lower lung. Pul monary edema and/or pneumonia are the primary considerations. IMPRESSION: No significant change since 09/12/2021 Reviewed, dictated and finalized at location A. STICS ANALYTICS MANAGER
--- NOTE | ~2021-08-21 | XR_ITS ---
XR chest 1V portable DATE: 09/16/2021 05:59 INDICATION: Respiratory failure TECHNIQUE: Portable AP chest on 09/16/2021 0536 hours COMPARISON: 09/15/2021 portable AP chest at 0517 hours 09/14/2021 portable AP chest at 0526 hours FINDINGS: Right internal jugular central venous catheter in right atrium. Left upper stomach the cath eter tip at superior caval atrial junction. Diffuse patchy bilateral pulmonary infiltrates, most prominent throughout the right lung and left per ihilar and lower lung zones, appearing moderately increased since 09/15/2021. Bilateral nephrostomy tubes.. IMPRESSION: Moderately increased bilateral infiltrates since 09/15/2021 Reviewed, dictated and finalized at location A. BUILDER AND ERECTOR
--- NOTE | 2021-08-21 15:45 | ECG_ITS ---
Measurements Intervals [place] Rate: 112 P: 46 [place]: 143 QRS: -64 QRSD: 104 T: 19 QT: 344 QTc: 472 Interpretive Statements SINUS TACHYCARDIA LEFT ANTERIOR FASCICULAR BLOCK POOR R WAVE PROGRESSION, ANTERIOR LEADS BORDERLINE T WAVE ABNORMALITY- INFERIOR LEADS BASELINE ARTIFACT- I, II, III, AVR, AVL, AVF, V1, V3, V6 ABNORMAL ECG Electronically Signed On 08-21-2021 17:00:22 FILLER MACHINE OPERATOR by Carter Walters D.O.
[2021-08-21 16:04] LABS: Basophils Percent Auto 0.2 % (0.2-1.2); Hematocrit 38.6 % (37.0-47.0); Hemoglobin 12.8 g/dL (12.0-15.0); Immature Granulocyte Absolute 0.17 K/mm3 (0.00-0.031); Immature Granulocyte Percent A 1.8 % (0-0.5); Lymphocytes Absolute Auto 2.03 K/mm3 (0.9-3.2); Lymphocytes Percent Auto 21.4 % (18.3-44.2); Mean Corpuscular HGB Conc 33.2 g/dl (32-36); Mean Corpuscular Hemoglobin 28.9 pg (26-34); Mean Corpuscular Volume 87.1 fl (80-100); Mean Platelet Volume 9.5 fl (7.4-10.4); Monocytes Absolute Auto 0.3 K/mm3 (0.1-0.6); Monocytes Percent Auto 3.6 % (2.6-8.5); Neutrophils Absolute Auto 6.9 K/mm3 (1.3-6.7); Platelet Count Result 326 k/mm3 (150-375); Red Blood Count 4.43 M/mm3 (4.2-5.4); Red Cell Distribution Width 14.3 % (11.5-14.5); White Blood Count 9.5 K/mm3 (4.5-10.0)
[2021-08-21 16:10] LABS: Alveolar/Arterial O2 Gradient 603.5 mmHg; Base Excess ABG -4.1 mEq/l (+/-2.0); Carboxyhemoglobin 0.1 % THb (0-2.0); Device HIGH FLOW NASAL CANN; Fractional Inspired Oxygen 100 %; HCO3 ABG 18.3 mEq/l (22.0-26.0); Methemoglobin ABG 0.1 %THb (0-1.5); Modified Allen's Test Pass; Oxygen Content ABG 17.5 %vol (16.0-22.0); Oxygen Saturation ABG 96.8 % (95.0-100.0); Oxyhemoglobin 95.6 % THb (90.0-100.0); PCO2 ABG 26.7 mmHg (35.0-45.0); PO2 ABG 82.8 mmHg (80.0-100.0); PO2 FiO2 Ratio Arterial Blood 0.83 %; Reduced Hemoglobin 4.2 %THb (0-5.0); Site Drawn RIGHT RADIAL; pH ABG 7.454 (7.350-7.450)
[2021-08-21 16:13] LABS: Alanine Aminotransferase 40 U/L (4-35); Alkaline Phosphatase 128 U/L (38-126); Anion Gap 11 mmol/L (8-16); Aspartate Amino Transferase 105 U/L (14-36); Blood Urea Nitrogen 18 mg/dL (7-17); Calcium 8.6 mg/dL (8.4-10.2); Carbon Dioxide 21 mmol/L (22-30); Chloride 100 mmol/L (98-107); Estimated CRCL calculation 62 ml/min; Estimated Glomerular Filt Rate 52; Glucose 104 mg/dL (65-110); Potassium 3.3 mmol/L (3.4-5.0); Sodium 132 mmol/L (137-145)
--- NOTE | 2021-08-21 16:14 | ED.GENADULT ---
HPI - General Adult General Chief complaint: Shortness of Breath/Dyspnea Stated complaint: Covid + 08/16/21 SOB Time Seen by Provider: 08/21/21 15:47 History of Present Illness HPI narrative: 55-year-old female presents emerge department for evaluation of worsening shortness of breath. Patient tested positive for Covid the Saturday. Patient states since that time she has had worsening shortness of breath and exertional fatigue. Patient is not a smoker. Patient is not vaccinated. Upon arrival to the emerge department patient was saturating at 68% on room air. Related Data Home Medications Medication Instructions Recorded Confirmed oxycodone-acetaminophen 7.5 mg-325 1 tablet PO tablet 06/28/21 07/10/21 mg tablet Allergies Allergy/AdvReac Type Severity Reaction Status Date / Time esomeprazole Allergy Unknown Unknown Verified 08/14/21 11:17 fluoxetine Allergy Unknown Unknown Verified 08/14/21 11:17 Review of Systems Review of Systems: CONSTITUTIONAL: Denies fever, chills, or sweats. EYES: Denies visual changes, redness, or discharge. ENT: Denies rhinorrhea, congestion, sore throat, or otalgia. CARDIOVASCULAR: Chest pain with coughing only, palpitations, or edema. RESPIRATORY: Increased cough and shortness of breath. GASTROINTESTINAL: Denies abdominal pain, nausea, vomiting, or diarrhea. GENITOURINARY: Denies dysuria or hematuria. SKIN: Denies rash or itching. MUSCULOSKELETAL: Denies back pain, joint pain, or myalgia. NEUROLOGIC: Denies headache, numbness, or weakness. PSYCHIATRIC: Denies anxiety or depression. 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 left knee H/O shoulder surgery right shoulder2019 H/O: section Family History Family History Father Hypertension Family history of heart disease in male family member before age 55 Sibling Hypertension Cerebrovascular accident Family history of diabetes mellitus in first degree relative Family history of heart disease in male family member before age 55 Mother Family history of diabetes mellitus in first degree relative Grandparent Diabetes mellitus Sibling Diabetes mellitus Other Family history of cardiovascular disease Family history of elevated blood lipids Family history of mental disorder Social History Social History Second hand tobacco smoke exposure: Yes Alcohol intake: former Substance use: never Substance use type: does not use 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 Head normocephalic atraumatic. EYES: PERRLA/EOMI, conjunctivae very clear. NOSE: Normal no drainage THROAT: Pharynx clear, no exudate. NECK: Supple. No adenopathy, no masses. RESPIRATORY: Airway patent, respirations nonlabored. Clear to auscultation bilaterally, no rales, rhonchi, wheezing. CARDIOVASCULAR: Tachycardic with regular rhythm without murmurs rubs or gallops. ABDOMINAL: Soft, nontender, nondistended, no hepatosplenomegally MUSCULOSKELETAl: Moves all extremities. Strength/ROM intact, No edema, No calf tenderness. NEURO: Alert. Cranial nerves II through XII intact. Good gait. Good coordination SKI
[2021-08-21 16:16] LABS: D Dimer 1.76 ug/mL (<0.48)
[2021-08-21] MEDS: DEXAMETHASONE 2 MG TABLET 6 MG PO (17:05)
--- NOTE | 2021-08-21 19:29 | ADMGEN ---
This patient, Arielle Zuleta, was admitted to [address] [place] [address] Room 300-01. Patient/family oriented to hospital policies and general routines including ID bracelet, bed and alarms, visiting hours, pain management, procedures, bathroom and other care routines, personal items, smoking policy, room service/diet, and visiting hours. Information on how to activate the Rapid Response Team has been discussed. Patient/Family are encouraged to report perceived risks to care and to ask questions if they do not understand what they are told or what they should do.
--- NOTE | 2021-08-21 20:03 | PM.IMHP ---
H&P: HPI History of Present Illness Date/Time: 08/21/21 20:03 Chief Complaint: Shortness of breath. Narrative: Patient is a 55-year-old female with past medical history significant for depression, generalized anxiety. Patient presented to emergency room due to worsening shortness of breath and persistent dry cough patient tested positive for COVID in the outpatient setting states that everybody home has COVID her and her son also tested positive for COVID, she had been started on amoxicillin, prednisone, inhalers, was seen again on a virtual visit due to non remitting of symptoms and worsening cough and shortness of breath at that time a Z-Ricardo was added as well and a PCR COVID was sent. Patient states that she is not vaccinated but is planning to get vaccinated after the she gets over this. The patient then decided to come to the emergency room today after she noted that she had a low pulse ox was noted to be 68% she require supplemental oxygen and in view of no improvement while in the emergency room decision was made to admit the patient for further evaluation management and treatment. Chest x-ray and CT of the chest were significant for extensive lung infiltrates but PE was not found. Review of Systems Review of Systems: DRY PERSISTENT COUGH, SHORTNESS OF BREATH ,BACK AND CHEST SORENESS, LOW PULSE OX. Constitutional: Constitutional: Denies chills, Denies fever(s), Denies lethargy, Denies malaise and Denies night sweats Eyes: Eyes: Denies change in vision ENT: Denies dysphagia, Denies nasal discharge, Denies nasal obstruction and Denies odynophagia Cardiovascular: Cardiovascular: Denies chest pain, Denies chest pain at rest, Denies pedal edema, Denies leg edema, Denies radiating jaw, neck or arm pain and Denies palpitations Respiratory: Respiratory: Denies change in phlegm color, Reports cough, Denies excessive phlegm production and Reports dyspnea Comments: AB TIMES THERE IS SCANT PRODUCTION OF WHITISH CLEAR SPUTUM Gastrointestinal: Gastrointestinal: Denies abdominal pain, Denies dyspepsia, Denies heartburn, Denies diarrhea and Denies nausea Genitourinary: Genitourinary: Denies dysuria Musculoskeletal: Musculoskeletal: Reports myalgias, Denies arthralgias and Denies joint swelling Integumentary/Breasts: Skin/Breast: Denies rash Neurologic: Denies dizziness, Denies focal weakness and Denies Sensory deficit (Neuro) Psychiatric: Psychiatric: Reports no additional psychiatric complaints and Reports as per HPI Endocrine: Endocrine: Denies polyphagia, Denies polydipsia, Denies polyuria and Denies palpitations Hematologic/Lymphatic: Hematologic/Lymphatic: Reports no additional hematologic/lymphatic complaints and Reports as per HPI Allergic/Immunologic: Allergic/Immunologic: Reports no additional allergic/immunologic complaints and Reports as per HPI [facility] Past Medical History Medical History Adult BMI 33.0-33.9 kg/sq m Blood in left ear canal BMI 34.0-34.9,adult BMI 35.0-35.9,adult BMI 36.0-36.9,adult BMI 37.0-37.9, adult 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 left knee H/O shoulder surgery right shoulder2019 H/O: section Family History Family History Father Hypertension Family history of heart disease in male family member before age 55 Sibling Hypertension Cerebrovascular accident Family history of diabetes mellitus in first degree relative Family history of heart disease in male family member before age 55 Mother Family history of diabetes mellitus in first
[2021-08-22] VITALS (13 sets, daily range): BP systolic 103–118; BP diastolic 56–71; PULSE 58–85; RESP 16–24; TEMP 35.8–36.6; O2SAT 87–97
[2021-08-22] MEDS: cefTRIAXone 2 GM in SODIUM CHLORIDE 0.9% IV 100 ML 200 ML IVPB (05:02)
[2021-08-22 05:28] LABS: INR 0.9; Prothrombin Time 12.5 Seconds (11.1-14.7)
[2021-08-22 05:36] LABS: Alanine Aminotransferase 40 U/L (4-35); Estimated CRCL calculation 61 ml/min; Estimated Glomerular Filt Rate 52
--- NOTE | 2021-08-22 05:58 | PC.NURSE ---
Request form sent to [facility] in [place] for patient's COVID test results.
[2021-08-22] MEDS: REMDESIVIR 200 MG/NS 250 ML 200 MG/250 ML BAG 250 MG IVPB (06:49)
[2021-08-22] MEDS: ROSUVASTATIN 10 MG TABLET PO (09:24)
[2021-08-22] MEDS: THERAPEUTIC MULTIVITAMINS/MINERALS TAB (*BKC) 1 TABLET PO (09:24)
[2021-08-22] MEDS: ARIPiprazole 5 MG TABLET PO (09:24)
[2021-08-22] MEDS: buPROPion HCL SR (12 HR) 150 MG TAB PO ×2 (09:24→21:15)
[2021-08-22] MEDS: BENZONATATE 100 MG CAPSULE 200 MG PO ×2 (09:24→21:14)
[2021-08-22] MEDS: SERTRALINE HCL 50 MG TABLET 100 MG PO (09:24)
--- NOTE | 2021-08-22 12:00 | P.PNIM_ITS ---
Progress Note: A&P Assessment and Plan (1) Pneumonia due to 2019-nCoV: Code(s): U07.1 - COVID-19; J12.82 - Pneumonia due to coronavirus disease 2019 Status: Acute Assessment and Plan: * Chest x-ray shows diffuse lung disease in a pattern consistent with COVID-19 * CTA shows scattered bilateral ground-glass opacities no PE * Positive COVID test 08/16/2021 * remdesivir plus dexamethasone started 08/21/21 day 2 * Rocephin and Zithromax at for antibacterial coverage * Convalescent plasma 08/22/21 * Supplemental oxygen to maintain a saturation greater than 92% * Consider Actemra * Tessalon Perles, albuterol * Supportive care * Encourage prone lying (2) Acute respiratory failure with hypoxia: Code(s): J96.01 - Acute respiratory failure with hypoxia Status: Acute Assessment and Plan: * Oxygen saturation the ED was 65% * Continue supplemental oxygen to maintain saturations greater than 92% * Probably due to COVID * See above (3) Bronchitis: Code(s): J40 - Bronchitis, not specified as acute or chronic Status: Acute Assessment and Plan: * Supportive care * Albuterol MDI (4) Abnormal LFTs: Code(s): R79.89 - Other specified abnormal findings of blood chemistry Status: Acute Assessment and Plan: * AST/ALT 105/40, Alk Phos 128 * Will continue to trend * Likely secondary to acute viral illness. * Hep panel in the am * Consider RUQ ultrasound (5) JERRY (acute kidney injury): Code(s): N17.9 - Acute kidney failure, unspecified Status: Acute Assessment and Plan: * BUN/Cr elevated 18/1.10 upon admission * Baseline is 18/0.86 * Likely to be pre renal azotemia * Push oral fluids * Trend labs (6) Obesity (BMI 30.0-34.9): Code(s): E66.9 - Obesity, unspecified Status: Acute Assessment and Plan: * 1800 calorie restricted diet * Lifestyle and diet modification (7) Degenerative arthritis of knee, bilateral: Qualifiers: Osteoarthritis type: unspecified Qualified Code(s): M17.0 - Bilateral primary osteoarthritis of knee Code(s): M17.0 - Bilateral primary osteoarthritis of knee Status: Chronic Assessment and Plan: * Patient is planing to have bilateral arthroplasty (8) Hyponatremia: Code(s): E87.1 - Hypo-osmolality and hyponatremia Status: Acute Assessment and Plan: * Na 132 this am * Likely secondary to p.o. poor p.o. oral intake however SIADH component could be factoring in * Continue to trend (9) Hypokalemia: Code(s): E87.6 - Hypokalemia Status: Acute Assessment and Plan: * K 3.3 today * Replace as needed * Trend labs * Labs in the am Subjective Date/time seen: 08/22/21 1200 Interval history: Date/Time: 08/21/21 20:03 Narrative: Patient is a 55-year-old female with past medical history significant for depression, generalized anxiety. Patient presented to emergency room due to worsening shortness of breath and persistent dry cough patient tested positive for COVID in the outpatient setting states that everybody home has COVID her and her son also tested positive for COVID, she had been started on amoxicillin, prednisone, inhalers, was seen again on a virtual visit due to non remitting of symptoms and worsening coug
--- NOTE | 2021-08-22 12:00 | PM.IMPN ---
Progress Note: A&P Assessment and Plan (1) Pneumonia due to 2019-nCoV: Code(s): U07.1 - COVID-19; J12.82 - Pneumonia due to coronavirus disease 2019 Status: Acute Assessment and Plan: Chest x-ray shows diffuse lung disease in a pattern consistent with COVID-19 CTA shows scattered bilateral ground-glass opacities no PE Positive COVID test 08/16/2021 remdesivir plus dexamethasone started 08/21/21 day 2 Rocephin and Zithromax at for antibacterial coverage Convalescent plasma 08/22/21 Supplemental oxygen to maintain a saturation greater than 92% Consider Actemra Tessalon Perles, albuterol Supportive care Encourage prone lying (2) Acute respiratory failure with hypoxia: Code(s): J96.01 - Acute respiratory failure with hypoxia Status: Acute Assessment and Plan: Oxygen saturation the ED was 65% Continue supplemental oxygen to maintain saturations greater than 92% Probably due to COVID See above (3) Bronchitis: Code(s): J40 - Bronchitis, not specified as acute or chronic Status: Acute Assessment and Plan: Supportive care Albuterol MDI (4) Abnormal LFTs: Code(s): R79.89 - Other specified abnormal findings of blood chemistry Status: Acute Assessment and Plan: AST/ALT 105/40, Alk Phos 128 Will continue to trend Likely secondary to acute viral illness. Hep panel in the am Consider RUQ ultrasound (5) JERRY (acute kidney injury): Code(s): N17.9 - Acute kidney failure, unspecified Status: Acute Assessment and Plan: BUN/Cr elevated 18/1.10 upon admission Baseline is 18/0.86 Likely to be pre renal azotemia Push oral fluids Trend labs (6) Obesity (BMI 30.0-34.9): Code(s): E66.9 - Obesity, unspecified Status: Acute Assessment and Plan: 1800 calorie restricted diet Lifestyle and diet modification (7) Degenerative arthritis of knee, bilateral: Qualifiers: Osteoarthritis type: unspecified Qualified Code(s): M17.0 - Bilateral primary osteoarthritis of knee Code(s): M17.0 - Bilateral primary osteoarthritis of knee Status: Chronic Assessment and Plan: Patient is planing to have bilateral arthroplasty (8) Hyponatremia: Code(s): E87.1 - Hypo-osmolality and hyponatremia Status: Acute Assessment and Plan: Na 132 this am Likely secondary to p.o. poor p.o. oral intake however SIADH component could be factoring in Continue to trend (9) Hypokalemia: Code(s): E87.6 - Hypokalemia Status: Acute Assessment and Plan: K 3.3 today Replace as needed Trend labs Labs in the am Subjective Date/time seen: 08/22/21 1200 Interval history: Date/Time: 08/21/21 20:03 Narrative: Patient is a 55-year-old female with past medical history significant for depression, generalized anxiety. Patient presented to emergency room due to worsening shortness of breath and persistent dry cough patient tested positive for COVID in the outpatient setting states that everybody home has COVID her and her son also tested positive for COVID, she had been started on amoxicillin, prednisone, inhalers, was seen again on a virtual visit due to non remitting of symptoms and worsening cough and shortness of breath at that time a Z-Ricardo was added as well and a PCR COVID was sent. Patient states that she is not vaccinated but is planning to get vaccinated after the she gets over this. The patient then decided to come to the emergency room today after she noted that she had a low pulse ox was noted to be 68% she require supplemental oxygen and in view of no improvement while in the emergency room decision was made to admit the patient for further evaluation management and treatment. Chest x-ray and CT of the chest were significant for extensive lung infiltrates but PE was
--- NOTE | 2021-08-22 13:32 | PC.NURSE ---
Verified Plasma administration with Krystal Montoya RN. The [facility] did not require a witness.
[2021-08-22] MEDS: oxyCODONE/ACETAMINOPHEN (*CRX) 5-325 MG TABLET 1 TABLET PO (13:33)
[2021-08-22] MEDS: SODIUM CHLORIDE 0.9% IV 250 ML 30 ML IV CONT (13:35)
[2021-08-23] VITALS (11 sets, daily range): BP systolic 103–142; BP diastolic 59–97; PULSE 76–97; RESP 18–24; TEMP 35.9–37.4; O2SAT 90–95
[2021-08-23] MEDS: cefTRIAXone 2 GM in SODIUM CHLORIDE 0.9% IV 100 ML 200 ML IVPB (03:59)
[2021-08-23] MEDS: BENZONATATE 100 MG CAPSULE 200 MG PO (03:59)
[2021-08-23 06:47] LABS: Basophils Percent Auto 0.2 % (0.2-1.2); Eosinophils Absolute Auto 0.1 K/mm3 (0-0.3); Eosinophils Percent Auto 0.9 % (0-4.4); Hematocrit 33.4 % (37.0-47.0); Hemoglobin 10.7 g/dL (12.0-15.0); Immature Granulocyte Absolute 0.22 K/mm3 (0.00-0.031); Immature Granulocyte Percent A 1.7 % (0-0.5); Lymphocytes Absolute Auto 1.62 K/mm3 (0.9-3.2); Lymphocytes Percent Auto 12.5 % (18.3-44.2); Mean Corpuscular Hemoglobin 28.4 pg (26-34); Mean Corpuscular Volume 88.6 fl (80-100); Mean Platelet Volume 9.5 fl (7.4-10.4); Monocytes Absolute Auto 0.6 K/mm3 (0.1-0.6); Monocytes Percent Auto 4.6 % (2.6-8.5); Neutrophils Absolute Auto 10.4 K/mm3 (1.3-6.7); Neutrophils Percent Auto 80.1 % (45.5-73.1); Platelet Count Result 379 k/mm3 (150-375); Red Blood Count 3.77 M/mm3 (4.2-5.4); Red Cell Distribution Width 14.6 % (11.5-14.5); White Blood Count 12.9 K/mm3 (4.5-10.0)
[2021-08-23 07:11] LABS: Alanine Aminotransferase 34 U/L (4-35); Albumin Level 3.6 g/dL (3.5-5.1); Alkaline Phosphatase 96 U/L (38-126); Anion Gap 2 mmol/L (8-16); Aspartate Amino Transferase 66 U/L (14-36); Bilirubin,Total 0.4 mg/dL (0.2-1.3); Blood Urea Nitrogen 25 mg/dL (7-17); Calcium 8.8 mg/dL (8.4-10.2); Carbon Dioxide 27 mmol/L (22-30); Chloride 104 mmol/L (98-107); Estimated CRCL calculation 74 ml/min; Estimated Glomerular Filt Rate > 60; Glucose 104 mg/dL (65-110); Lactate Dehydrogenase 1645 U/L (313-618); Magnesium 2.3 mg/dL (1.6-2.3); Potassium 3.9 mmol/L (3.4-5.0); Sodium 133 mmol/L (137-145)
[2021-08-23 07:12] LABS: INR 1.1
[2021-08-23 07:15] LABS: D Dimer 1.61 ug/mL (<0.48)
[2021-08-23 07:32] LABS: CRP 12.3 mg/dL (<1.0)
[2021-08-23 07:36] LABS: Hepatitis B Surface Antigen Negative (Negative)
[2021-08-23 07:42] LABS: HAV RESULT Negative (Negative); Hepatitis B Core IgM Result Negative (Negative)
[2021-08-23 07:54] LABS: Hepatitis C Virus Antibody Negative (Negative)
--- NOTE | 2021-08-23 08:30 | P.PNIM_ITS ---
Progress Note: A&P Assessment and Plan (1) Pneumonia due to 2019-nCoV: Code(s): U07.1 - COVID-19; J12.82 - Pneumonia due to coronavirus disease 2018 Status: Acute Assessment and Plan: * Chest x-ray shows diffuse lung disease in a pattern consistent with COVID-19, repeat in the am * CTA shows scattered bilateral ground-glass opacities no PE * Positive COVID test 08/16/2021 * remdesivir plus dexamethasone started 08/21/21 day 3 * Rocephin and Zithromax at for antibacterial coverage day 3. * Convalescent plasma 08/22/21 * Supplemental oxygen to maintain a saturation greater than 92%, currently on 15L high flow cannula * Baricitinib ordered 4mg PO * Tessalon Perles, albuterol * Supportive care * Encourage prone lying * Inflammatory markers: Dimer 1.61, Ferritin 527, LDH 1645, CRP 12.3, trend down (2) Acute respiratory failure with hypoxia: Code(s): J96.01 - Acute respiratory failure with hypoxia Status: Acute Assessment and Plan: * Oxygen saturation the ED was 65% * Continue supplemental oxygen to maintain saturations greater than 92% * Probably due to COVID * See above (3) Bronchitis: Code(s): J40 - Bronchitis, not specified as acute or chronic Status: Acute Assessment and Plan: * Supportive care * Albuterol MDI (4) Abnormal LFTs: Code(s): R79.89 - Other specified abnormal findings of blood chemistry Status: Acute Assessment and Plan: * AST/ALT 66/34, Alk Phos 96, trending down * Will continue to trend * Likely secondary to acute viral illness. * Hep panel negative * Consider RUQ ultrasound (5) JERRY (acute kidney injury): Code(s): N17.9 - Acute kidney failure, unspecified Status: Acute Assessment and Plan: * Probably resolved at this time * BUN/Cr elevated 18/1.10 upon admission * Today 25/0.90 * Baseline is 18/0.86 * Likely to be pre renal azotemia * Push oral fluids * Trend labs (6) Obesity (BMI 30.0-34.9): Code(s): E66.9 - Obesity, unspecified Status: Acute Assessment and Plan: * 1800 calorie restricted diet * Lifestyle and diet modification (7) Degenerative arthritis of knee, bilateral: Qualifiers: Osteoarthritis type: unspecified Qualified Code(s): M17.0 - Bilateral primary osteoarthritis of knee Code(s): M17.0 - Bilateral primary osteoarthritis of knee Status: Chronic Assessment and Plan: * Patient is planing to have bilateral arthroplasty (8) Hyponatremia: Code(s): E87.1 - Hypo-osmolality and hyponatremia Status: Acute Assessment and Plan: * Na 133 this am * Likely secondary to p.o. poor p.o. oral intake however SIADH component could be factoring in * Continue to trend (9) Hypokalemia: Code(s): E87.6 - Hypokalemia Status: Acute Assessment and Plan: * K 3.9 today * Replace as needed * Trend labs * Labs in the am (10) Chest pain: Code(s): R07.9 - Chest pain, unspecified Status: Acute Assessment and Plan: * Chest pain with radiation to the back * Trop I ordered and pending * EKG ordered * Probably from the cough * BNP slightly elevated at 129 * One dose of lasix Time Spent With Patient Time with patient: Casie
--- NOTE | 2021-08-23 08:30 | PM.IMPN ---
Progress Note: A&P Assessment and Plan (1) Pneumonia due to 2019-nCoV: Code(s): U07.1 - COVID-19; J12.82 - Pneumonia due to coronavirus disease 2019 Status: Acute Assessment and Plan: Chest x-ray shows diffuse lung disease in a pattern consistent with COVID-19, repeat in the am CTA shows scattered bilateral ground-glass opacities no PE Positive COVID test 08/16/2021 remdesivir plus dexamethasone started 08/21/21 day 3 Rocephin and Zithromax at for antibacterial coverage day 3. Convalescent plasma 08/22/21 Supplemental oxygen to maintain a saturation greater than 92%, currently on 15L high flow cannula Baricitinib ordered 4mg PO Tessalon Perles, albuterol Supportive care Encourage prone lying Inflammatory markers: Dimer 1.61, Ferritin 527, LDH 1645, CRP 12.3, trend down (2) Acute respiratory failure with hypoxia: Code(s): J96.01 - Acute respiratory failure with hypoxia Status: Acute Assessment and Plan: Oxygen saturation the ED was 65% Continue supplemental oxygen to maintain saturations greater than 92% Probably due to COVID See above (3) Bronchitis: Code(s): J40 - Bronchitis, not specified as acute or chronic Status: Acute Assessment and Plan: Supportive care Albuterol MDI (4) Abnormal LFTs: Code(s): R79.89 - Other specified abnormal findings of blood chemistry Status: Acute Assessment and Plan: AST/ALT 66/34, Alk Phos 96, trending down Will continue to trend Likely secondary to acute viral illness. Hep panel negative Consider RUQ ultrasound (5) JERRY (acute kidney injury): Code(s): N17.9 - Acute kidney failure, unspecified Status: Acute Assessment and Plan: Probably resolved at this time BUN/Cr elevated 18/1.10 upon admission Today 25/0.90 Baseline is 18/0.86 Likely to be pre renal azotemia Push oral fluids Trend labs (6) Obesity (BMI 30.0-34.9): Code(s): E66.9 - Obesity, unspecified Status: Acute Assessment and Plan: 1800 calorie restricted diet Lifestyle and diet modification (7) Degenerative arthritis of knee, bilateral: Qualifiers: Osteoarthritis type: unspecified Qualified Code(s): M17.0 - Bilateral primary osteoarthritis of knee Code(s): M17.0 - Bilateral primary osteoarthritis of knee Status: Chronic Assessment and Plan: Patient is planing to have bilateral arthroplasty (8) Hyponatremia: Code(s): E87.1 - Hypo-osmolality and hyponatremia Status: Acute Assessment and Plan: Na 133 this am Likely secondary to p.o. poor p.o. oral intake however SIADH component could be factoring in Continue to trend (9) Hypokalemia: Code(s): E87.6 - Hypokalemia Status: Acute Assessment and Plan: K 3.9 today Replace as needed Trend labs Labs in the am (10) Chest pain: Code(s): R07.9 - Chest pain, unspecified Status: Acute Assessment and Plan: Chest pain with radiation to the back Trop I ordered and pending EKG ordered Probably from the cough BNP slightly elevated at 129 One dose of lasix Time Spent With Patient Time with patient: Greater than 35 minutes Subjective Date/time seen: 08/23/21 10:34 Interval history: Date/Time: 08/21/21 20:03 Narrative: Patient is a 55-year-old female with past medical history significant for depression, generalized anxiety. Patient presented to emergency room due to worsening shortness of breath and persistent dry cough patient tested positive for COVID in the outpatient setting states that everybody home has COVID her and her son also tested positive for COVID, she had been started on amoxicillin, prednisone, inhalers, was seen again on a virtual visit due to non remitting of symptoms and worsening cough and shortness of breath
[2021-08-23 08:42] LABS: NT Pro B Type Natriuretic Pept 139 pg/mL (5-100)
[2021-08-23] MEDS: THERAPEUTIC MULTIVITAMINS/MINERALS TAB (*BKC) 1 TABLET PO (08:58)
[2021-08-23] MEDS: SERTRALINE HCL 50 MG TABLET 100 MG PO (08:58)
[2021-08-23] MEDS: calcium polycarbophiL 625 MG TABLET 1250 MG PO (08:58)
[2021-08-23] MEDS: buPROPion HCL SR (12 HR) 150 MG TAB PO ×2 (08:58→20:11)
[2021-08-23] MEDS: ARIPiprazole 5 MG TABLET PO (08:58)
[2021-08-23] MEDS: ROSUVASTATIN 10 MG TABLET PO (08:59)
--- NOTE | 2021-08-23 10:42 | ECG_ITS ---
Measurements Intervals [place] Rate: 92 P: 67 DC: 142 QRS: -50 QRSD: 108 T: 0 QT: 400 QTc: 496 Interpretive Statements SINUS RHYTHM LEFT ANTERIOR FASCICULAR BLOCK MINIMAL Q WAVES- HIGH LATERAL LEADS BORDERLINE T WAVE ABNORMALITY- ANTEROLAT/INF LEADS BASELINE ARTIFACT- I, II, III, AVR, AVL, AVF, V1-V6 ABNORMAL ECG Electronically Signed On 08-23-2021 13:34:58 TRAIN SYSTEM OPERATOR by Carter Walters D.O.
[2021-08-23 11:18] LABS: Basophils Percent Auto 0.1 % (0.2-1.2); Eosinophils Absolute Auto 0.1 K/mm3 (0-0.3); Eosinophils Percent Auto 0.6 % (0-4.4); Hematocrit 35.8 % (37.0-47.0); Hemoglobin 11.6 g/dL (12.0-15.0); Immature Granulocyte Absolute 0.24 K/mm3 (0.00-0.031); Immature Granulocyte Percent A 1.9 % (0-0.5); Lymphocytes Absolute Auto 1.43 K/mm3 (0.9-3.2); Lymphocytes Percent Auto 11.6 % (18.3-44.2); Mean Corpuscular HGB Conc 32.4 g/dl (32-36); Mean Corpuscular Volume 89.5 fl (80-100); Mean Platelet Volume 9.2 fl (7.4-10.4); Monocytes Absolute Auto 0.6 K/mm3 (0.1-0.6); Monocytes Percent Auto 4.9 % (2.6-8.5); Neutrophils Percent Auto 80.9 % (45.5-73.1); Platelet Count Result 348 k/mm3 (150-375); Red Cell Distribution Width 14.6 % (11.5-14.5); White Blood Count 12.3 K/mm3 (4.5-10.0)
[2021-08-23 11:31] LABS: Alanine Aminotransferase 36 U/L (4-35); Aspartate Amino Transferase 79 U/L (14-36); Estimated CRCL calculation 74 ml/min; Estimated Glomerular Filt Rate > 60
[2021-08-23] MEDS: FUROSEMIDE INJ 40 MG/4 ML VIAL IV PUSH (11:31)
[2021-08-23] MEDS: guaiFENesin/DEXTROMETHORPHAN 10 ML UDC PO ×3 (11:31→20:11)
[2021-08-23] MEDS: REMDESIVIR 100 MG/NS 250 ML 100 MG/250 ML BAG 250 MG IVPB (11:31)
[2021-08-23] MEDS: oxyCODONE/ACETAMINOPHEN (*CRX) 5-325 MG TABLET 1 TABLET PO ×2 (11:31→20:12)
[2021-08-23 11:48] LABS: Troponin I < 0.012 ng/mL (0.000-0.034)
[2021-08-23] MEDS: BARICITINIB 2 MG TABLET 4 MG PO (12:35)
[2021-08-24 04:02] VITALS: BP 123/83; PULSE 84; RESP 20; TEMP 36.7; O2SAT 90
[2021-08-24] MEDS: cefTRIAXone 2 GM in SODIUM CHLORIDE 0.9% IV 100 ML 200 ML IVPB (04:19)
[2021-08-24] MEDS: guaiFENesin/DEXTROMETHORPHAN 10 ML UDC PO ×4 (04:33→21:02)
[2021-08-24] MEDS: oxyCODONE HCL (*CRX) 2.5 MG TAB IR PO ×3 (05:12→18:04)
[2021-08-24 07:58] LABS: Basophils Percent Auto 0.2 % (0.2-1.2); Hematocrit 31.9 % (37.0-47.0); Hemoglobin 10.4 g/dL (12.0-15.0); Immature Granulocyte Absolute 0.17 K/mm3 (0.00-0.031); Immature Granulocyte Percent A 2.6 % (0-0.5); Lymphocytes Absolute Auto 1.12 K/mm3 (0.9-3.2); Mean Corpuscular HGB Conc 32.6 g/dl (32-36); Mean Corpuscular Hemoglobin 28.8 pg (26-34); Mean Corpuscular Volume 88.4 fl (80-100); Mean Platelet Volume 9.6 fl (7.4-10.4); Monocytes Absolute Auto 0.4 K/mm3 (0.1-0.6); Monocytes Percent Auto 6.2 % (2.6-8.5); Neutrophils Absolute Auto 4.9 K/mm3 (1.3-6.7); Platelet Count Result 257 k/mm3 (150-375); Red Blood Count 3.61 M/mm3 (4.2-5.4); Red Cell Distribution Width 14.5 % (11.5-14.5); White Blood Count 6.6 K/mm3 (4.5-10.0)
[2021-08-24 08:00] VITALS: BP 121/71; PULSE 71; RESP 24; TEMP 36.7; O2SAT 91
[2021-08-24 08:09] LABS: Alanine Aminotransferase 33 U/L (4-35); Albumin Level 3.6 g/dL (3.5-5.1); Alkaline Phosphatase 79 U/L (38-126); Anion Gap 10 mmol/L (8-16); Aspartate Amino Transferase 55 U/L (14-36); Bilirubin,Total 0.5 mg/dL (0.2-1.3); Blood Urea Nitrogen 23 mg/dL (7-17); Calcium 8.7 mg/dL (8.4-10.2); Carbon Dioxide 25 mmol/L (22-30); Chloride 101 mmol/L (98-107); Estimated CRCL calculation 83 ml/min; Estimated Glomerular Filt Rate > 60; Glucose 183 mg/dL (65-110); Lactate Dehydrogenase 1447 U/L (313-618); Magnesium 2.3 mg/dL (1.6-2.3); Potassium 3.6 mmol/L (3.4-5.0); Sodium 136 mmol/L (137-145)
[2021-08-24 08:18] LABS: CRP 19.2 mg/dL (<1.0)
[2021-08-24] MEDS: BARICITINIB 2 MG TABLET 4 MG PO (09:22)
[2021-08-24] MEDS: THERAPEUTIC MULTIVITAMINS/MINERALS TAB (*BKC) 1 TABLET PO (09:23)
[2021-08-24] MEDS: buPROPion HCL SR (12 HR) 150 MG TAB PO ×2 (09:23→22:01)
[2021-08-24] MEDS: SERTRALINE HCL 50 MG TABLET 100 MG PO (09:23)
[2021-08-24] MEDS: ROSUVASTATIN 10 MG TABLET PO (09:23)
[2021-08-24] MEDS: calcium polycarbophiL 625 MG TABLET 1250 MG PO (09:23)
[2021-08-24] MEDS: ARIPiprazole 5 MG TABLET PO (09:23)
[2021-08-24] MEDS: REMDESIVIR 100 MG/NS 250 ML 100 MG/250 ML BAG 250 MG IVPB (10:26)
[2021-08-24] MEDS: oxyCODONE/ACETAMINOPHEN (*CRX) 5-325 MG TABLET 1 TABLET PO ×2 (11:19→18:05)
[2021-08-24 11:25] LABS: INR 1.4; Prothrombin Time 16.7 Seconds (11.1-14.7)
[2021-08-24 11:28] LABS: D Dimer 0.27 ug/mL (<0.48)
[2021-08-24 12:00] VITALS: BP 121/67; PULSE 67; RESP 20; TEMP 36.2; O2SAT 94
--- NOTE | 2021-08-24 12:00 | P.PNIM_ITS ---
Progress Note: A&P Assessment and Plan (1) Pneumonia due to 2019-nCoV: Code(s): U07.1 - COVID-19; J12.82 - Pneumonia due to coronavirus disease 2019 Status: Acute Assessment and Plan: * Chest x-ray Extensive right, moderate left COVID pneumonia unchanged. from 08/24/21 * CTA shows scattered bilateral ground-glass opacities no PE * Positive COVID test 08/16/2021 * remdesivir plus dexamethasone started 08/21/21 day 4 * Rocephin and Zithromax at for antibacterial coverage day 4 * Convalescent plasma 08/22/21 * Supplemental oxygen to maintain a saturation greater than 92%, currently on 10L high flow cannula * Baricitinib ordered 4mg PO * Tessalon Perles, albuterol * Supportive care * Encourage prone lying * Inflammatory markers: Dimer 0.27, Ferritin 416, LDH 1447, CRP 19.2 * IS and PEP therapy (2) Acute respiratory failure with hypoxia: Code(s): J96.01 - Acute respiratory failure with hypoxia Status: Acute Assessment and Plan: * Oxygen saturation the ED was 65% * Continue supplemental oxygen to maintain saturations greater than 92% * Probably due to COVID * See above (3) Bronchitis: Code(s): J40 - Bronchitis, not specified as acute or chronic Status: Acute Assessment and Plan: * Supportive care * Albuterol MDI (4) Abnormal LFTs: Code(s): R79.89 - Other specified abnormal findings of blood chemistry Status: Acute Assessment and Plan: * AST/ALT 55/33, Alk Phos 79, trending down * Will continue to trend * Likely secondary to acute viral illness. * Hep panel negative * Consider RUQ ultrasound (5) JERRY (acute kidney injury): Code(s): N17.9 - Acute kidney failure, unspecified Status: Acute Assessment and Plan: * Probably resolved at this time * BUN/Cr elevated 18/1.10 upon admission * Today 23/0.8 * Baseline is 18/0.86 * Likely to be pre renal azotemia * Push oral fluids * Trend labs (6) Obesity (BMI 30.0-34.9): Code(s): E66.9 - Obesity, unspecified Status: Acute Assessment and Plan: * 1800 calorie restricted diet * Lifestyle and diet modification (7) Degenerative arthritis of knee, bilateral: Qualifiers: Osteoarthritis type: unspecified Qualified Code(s): M17.0 - Bilateral primary osteoarthritis of knee Code(s): M17.0 - Bilateral primary osteoarthritis of knee Status: Chronic Assessment and Plan: * Patient is planing to have bilateral arthroplasty (8) Hyponatremia: Code(s): E87.1 - Hypo-osmolality and hyponatremia Status: Acute Assessment and Plan: * Na 136 this am * Likely secondary to p.o. poor p.o. oral intake however SIADH component could be factoring in * Continue to trend (9) Hypokalemia: Code(s): E87.6 - Hypokalemia Status: Acute Assessment and Plan: * K 3.6 today * Replace as needed * Trend labs * Labs in the am (10) Chest pain: Code(s): R07.9 - Chest pain, unspecified Status: Acute Assessment and Plan: * Chest pain with radiation to the back * Trop I negative * EKG no change * Probably from the cough * BNP slightly elevated at 129 * One dose of lasix (11) Cough: Code(s): R05.9 - Cough, unspecified
--- NOTE | 2021-08-24 12:00 | PM.IMPN ---
Progress Note: A&P Assessment and Plan (1) Pneumonia due to 2019-nCoV: Code(s): U07.1 - COVID-19; J12.82 - Pneumonia due to coronavirus disease 2019 Status: Acute Assessment and Plan: Chest x-ray Extensive right, moderate left COVID pneumonia unchanged. from 08/24/21 CTA shows scattered bilateral ground-glass opacities no PE Positive COVID test 08/16/2021 remdesivir plus dexamethasone started 08/21/21 day 4 Rocephin and Zithromax at for antibacterial coverage day 4 Convalescent plasma 08/22/21 Supplemental oxygen to maintain a saturation greater than 92%, currently on 10L high flow cannula Baricitinib ordered 4mg PO Tessalon Perles, albuterol Supportive care Encourage prone lying Inflammatory markers: Dimer 0.27, Ferritin 416, LDH 1447, CRP 19.2 IS and PEP therapy (2) Acute respiratory failure with hypoxia: Code(s): J96.01 - Acute respiratory failure with hypoxia Status: Acute Assessment and Plan: Oxygen saturation the ED was 65% Continue supplemental oxygen to maintain saturations greater than 92% Probably due to COVID See above (3) Bronchitis: Code(s): J40 - Bronchitis, not specified as acute or chronic Status: Acute Assessment and Plan: Supportive care Albuterol MDI (4) Abnormal LFTs: Code(s): R79.89 - Other specified abnormal findings of blood chemistry Status: Acute Assessment and Plan: AST/ALT 55/33, Alk Phos 79, trending down Will continue to trend Likely secondary to acute viral illness. Hep panel negative Consider RUQ ultrasound (5) JERRY (acute kidney injury): Code(s): N17.9 - Acute kidney failure, unspecified Status: Acute Assessment and Plan: Probably resolved at this time BUN/Cr elevated 18/1.10 upon admission Today 23/0.8 Baseline is 18/0.86 Likely to be pre renal azotemia Push oral fluids Trend labs (6) Obesity (BMI 30.0-34.9): Code(s): E66.9 - Obesity, unspecified Status: Acute Assessment and Plan: 1800 calorie restricted diet Lifestyle and diet modification (7) Degenerative arthritis of knee, bilateral: Qualifiers: Osteoarthritis type: unspecified Qualified Code(s): M17.0 - Bilateral primary osteoarthritis of knee Code(s): M17.0 - Bilateral primary osteoarthritis of knee Status: Chronic Assessment and Plan: Patient is planing to have bilateral arthroplasty (8) Hyponatremia: Code(s): E87.1 - Hypo-osmolality and hyponatremia Status: Acute Assessment and Plan: Na 136 this am Likely secondary to p.o. poor p.o. oral intake however SIADH component could be factoring in Continue to trend (9) Hypokalemia: Code(s): E87.6 - Hypokalemia Status: Acute Assessment and Plan: K 3.6 today Replace as needed Trend labs Labs in the am (10) Chest pain: Code(s): R07.9 - Chest pain, unspecified Status: Acute Assessment and Plan: Chest pain with radiation to the back Trop I negative EKG no change Probably from the cough BNP slightly elevated at 129 One dose of lasix (11) Cough: Code(s): R05.9 - Cough, unspecified Status: Acute Assessment and Plan: Related to covid Add amanda Fallonsin Time Spent With Patient Time with patient: Greater than 35 minutes Subjective Date/time seen: 08/24/21 1200 Interval history: Date/Time: 08/21/21 20:03 Narrative: Patient is a 55-year-old female with past medical history significant for depression, generalized anxiety. Patient presented to emergency room due to worsening shortness of breath and persistent dry cough patient tested positive for COVID in the outpatient setting states that everybody home has COVID her and her son also tested positive for COVID, she had been started on am
[2021-08-24 16:00] VITALS: BP 100/68; PULSE 77; RESP 24; TEMP 36.6; O2SAT 91
[2021-08-24 20:00] VITALS: BP 118/70; PULSE 65; RESP 18; TEMP 36.2; O2SAT 92; O2SAT 93
[2021-08-24 23:43] VITALS: BP 102/60; PULSE 60; RESP 20; TEMP 36.6; O2SAT 93
[2021-08-25 04:00] VITALS: BP 104/53; PULSE 71; RESP 20; TEMP 37; O2SAT 90
[2021-08-25] MEDS: cefTRIAXone 2 GM in SODIUM CHLORIDE 0.9% IV 100 ML 150 ML IVPB (04:18)
[2021-08-25] MEDS: oxyCODONE HCL (*CRX) 2.5 MG TAB IR PO ×3 (04:20→20:23)
[2021-08-25] MEDS: oxyCODONE/ACETAMINOPHEN (*CRX) 5-325 MG TABLET 1 TABLET PO ×3 (04:22→20:23)
[2021-08-25] MEDS: guaiFENesin/DEXTROMETHORPHAN 10 ML UDC PO ×3 (04:38→20:19)
[2021-08-25 06:52] LABS: Basophils Percent Auto 0.2 % (0.2-1.2); Hematocrit 31.9 % (37.0-47.0); Hemoglobin 10.2 g/dL (12.0-15.0); Immature Granulocyte Absolute 0.23 K/mm3 (0.00-0.031); Immature Granulocyte Percent A 2.3 % (0-0.5); Lymphocytes Absolute Auto 1.44 K/mm3 (0.9-3.2); Lymphocytes Percent Auto 14.2 % (18.3-44.2); Mean Corpuscular Hemoglobin 28.7 pg (26-34); Mean Corpuscular Volume 89.9 fl (80-100); Mean Platelet Volume 9.9 fl (7.4-10.4); Monocytes Absolute Auto 0.6 K/mm3 (0.1-0.6); Monocytes Percent Auto 6.2 % (2.6-8.5); Neutrophils Absolute Auto 7.8 K/mm3 (1.3-6.7); Neutrophils Percent Auto 77.1 % (45.5-73.1); Platelet Count Result 261 k/mm3 (150-375); Red Blood Count 3.55 M/mm3 (4.2-5.4); Red Cell Distribution Width 14.6 % (11.5-14.5); White Blood Count 10.1 K/mm3 (4.5-10.0)
[2021-08-25 07:10] LABS: Sodium 137 mmol/L (137-145)
[2021-08-25 07:20] LABS: Alanine Aminotransferase 31 U/L (4-35); Albumin Level 3.4 g/dL (3.5-5.1); Alkaline Phosphatase 74 U/L (38-126); Anion Gap 7 mmol/L (8-16); Aspartate Amino Transferase 45 U/L (14-36); Bilirubin,Total 0.5 mg/dL (0.2-1.3); Blood Urea Nitrogen 22 mg/dL (7-17); Calcium 8.6 mg/dL (8.4-10.2); Carbon Dioxide 27 mmol/L (22-30); Chloride 103 mmol/L (98-107); Estimated CRCL calculation 108 ml/min; Estimated Glomerular Filt Rate > 60; Glucose 167 mg/dL (65-110); Lactate Dehydrogenase 1299 U/L (313-618); Magnesium 2.2 mg/dL (1.6-2.3); Potassium 3.6 mmol/L (3.4-5.0)
[2021-08-25 07:34] LABS: CRP 10.1 mg/dL (<1.0)
[2021-08-25 08:00] VITALS: BP 106/80; PULSE 57; RESP 20; TEMP 35.7; O2SAT 88; O2SAT 90
--- NOTE | 2021-08-25 09:00 | P.PNIM_ITS ---
Progress Note: A&P Assessment and Plan (1) Pneumonia due to 2019-nCoV: Code(s): U07.1 - COVID-19; J12.82 - Pneumonia due to coronavirus disease 2019 Status: Acute Assessment and Plan: * Chest x-ray Extensive right, moderate left COVID pneumonia unchanged. from 08/24/21 * CTA shows scattered bilateral ground-glass opacities no PE * Positive COVID test 08/16/2021 * remdesivir plus dexamethasone started 08/21/21 day 4 * Rocephin and Zithromax at for antibacterial coverage day 4 * Convalescent plasma 08/22/21 * Supplemental oxygen to maintain a saturation greater than 92%, currently on 10L high flow cannula * Baricitinib ordered 4mg PO * Tessalon Perles, albuterol * Supportive care * Encourage prone lying * Inflammatory markers: Dimer >20.00, Ferritin 372, LDH 1299, CRP 10.1 * IS and PEP therapy (2) Acute respiratory failure with hypoxia: Code(s): J96.01 - Acute respiratory failure with hypoxia Status: Acute Assessment and Plan: * Oxygen saturation the ED was 65% * Continue supplemental oxygen to maintain saturations greater than 92% * Probably due to COVID * See above (3) Bronchitis: Code(s): J40 - Bronchitis, not specified as acute or chronic Status: Acute Assessment and Plan: * Supportive care * Albuterol MDI (4) Abnormal LFTs: Code(s): R79.89 - Other specified abnormal findings of blood chemistry Status: Acute Assessment and Plan: * AST/ALT 45/31, Alk Phos 74, trending down * Will continue to trend * Likely secondary to acute viral illness. * Hep panel negative * Consider RUQ ultrasound (5) JERRY (acute kidney injury): Code(s): N17.9 - Acute kidney failure, unspecified Status: Acute Assessment and Plan: * Probably resolved at this time * BUN/Cr elevated 18/1.10 upon admission * Today 22/0.60 * Baseline is 18/0.86 * Likely to be pre renal azotemia * Push oral fluids * Trend labs (6) Obesity (BMI 30.0-34.9): Code(s): E66.9 - Obesity, unspecified Status: Acute Assessment and Plan: * 1800 calorie restricted diet * Lifestyle and diet modification (7) Degenerative arthritis of knee, bilateral: Qualifiers: Osteoarthritis type: unspecified Qualified Code(s): M17.0 - Bilateral primary osteoarthritis of knee Code(s): M17.0 - Bilateral primary osteoarthritis of knee Status: Chronic Assessment and Plan: * Patient is planing to have bilateral arthroplasty (8) Hyponatremia: Code(s): E87.1 - Hypo-osmolality and hyponatremia Status: Acute Assessment and Plan: * Na 137 this am * Likely secondary to p.o. poor p.o. oral intake however SIADH component could be factoring in * Continue to trend (9) Hypokalemia: Code(s): E87.6 - Hypokalemia Status: Acute Assessment and Plan: * K 3.6 today * Replace as needed * Trend labs * Labs in the am (10) Chest pain: Code(s): R07.9 - Chest pain, unspecified Status: Acute Assessment and Plan: * Chest pain with radiation to the back * Trop I negative, repeated * EKG no change * Probably from the cough * BNP slightly elevated at 129 * One dose of lasix (11) Cough: Code(s): R05.9 - Cough, un
--- NOTE | 2021-08-25 09:00 | PM.IMPN ---
Progress Note: A&P Assessment and Plan (1) Pneumonia due to 2019-nCoV: Code(s): U07.1 - COVID-19; J12.82 - Pneumonia due to coronavirus disease 2019 Status: Acute Assessment and Plan: Chest x-ray Extensive right, moderate left COVID pneumonia unchanged. from 08/24/21 CTA shows scattered bilateral ground-glass opacities no PE Positive COVID test 08/16/2021 remdesivir plus dexamethasone started 08/21/21 day 4 Rocephin and Zithromax at for antibacterial coverage day 4 Convalescent plasma 08/22/21 Supplemental oxygen to maintain a saturation greater than 92%, currently on 10L high flow cannula Baricitinib ordered 4mg PO Tessalon Perles, albuterol Supportive care Encourage prone lying Inflammatory markers: Dimer >20.00, Ferritin 372, LDH 1299, CRP 10.1 IS and PEP therapy (2) Acute respiratory failure with hypoxia: Code(s): J96.01 - Acute respiratory failure with hypoxia Status: Acute Assessment and Plan: Oxygen saturation the ED was 65% Continue supplemental oxygen to maintain saturations greater than 92% Probably due to COVID See above (3) Bronchitis: Code(s): J40 - Bronchitis, not specified as acute or chronic Status: Acute Assessment and Plan: Supportive care Albuterol MDI (4) Abnormal LFTs: Code(s): R79.89 - Other specified abnormal findings of blood chemistry Status: Acute Assessment and Plan: AST/ALT 45/31, Alk Phos 74, trending down Will continue to trend Likely secondary to acute viral illness. Hep panel negative Consider RUQ ultrasound (5) JERRY (acute kidney injury): Code(s): N17.9 - Acute kidney failure, unspecified Status: Acute Assessment and Plan: Probably resolved at this time BUN/Cr elevated 18/1.10 upon admission Today 22/0.60 Baseline is 18/0.86 Likely to be pre renal azotemia Push oral fluids Trend labs (6) Obesity (BMI 30.0-34.9): Code(s): E66.9 - Obesity, unspecified Status: Acute Assessment and Plan: 1800 calorie restricted diet Lifestyle and diet modification (7) Degenerative arthritis of knee, bilateral: Qualifiers: Osteoarthritis type: unspecified Qualified Code(s): M17.0 - Bilateral primary osteoarthritis of knee Code(s): M17.0 - Bilateral primary osteoarthritis of knee Status: Chronic Assessment and Plan: Patient is planing to have bilateral arthroplasty (8) Hyponatremia: Code(s): E87.1 - Hypo-osmolality and hyponatremia Status: Acute Assessment and Plan: Na 137 this am Likely secondary to p.o. poor p.o. oral intake however SIADH component could be factoring in Continue to trend (9) Hypokalemia: Code(s): E87.6 - Hypokalemia Status: Acute Assessment and Plan: K 3.6 today Replace as needed Trend labs Labs in the am (10) Chest pain: Code(s): R07.9 - Chest pain, unspecified Status: Acute Assessment and Plan: Chest pain with radiation to the back Trop I negative, repeated EKG no change Probably from the cough BNP slightly elevated at 129 One dose of lasix (11) Cough: Code(s): R05.9 - Cough, unspecified Status: Acute Assessment and Plan: Related to covid Add lozenge Robitussin (12) Elevated d-dimer: Code(s): R79.89 - Other specified abnormal findings of blood chemistry Status: Acute Assessment and Plan: D.Dimer elevated >13817 CTA ordered lovenox 1 mg/ml initiated Satuation is declining Time Spent With Patient Time with patient: 25 - 35 minutes Subjective Date/time seen: 08/25/21 0900 Interval history: Date/Time: 08/21/21 20:03 Narrative: Patient is a 55-year-old female with past medical history significant for depression, generalized anxiety. Patient presente
[2021-08-25 09:25] LABS: INR 1.2; Prothrombin Time 15.4 Seconds (11.1-14.7)
[2021-08-25 09:26] LABS: D Dimer > 20.00 ug/mL (<0.48)
[2021-08-25] MEDS: buPROPion HCL SR (12 HR) 150 MG TAB PO ×2 (10:59→20:19)
[2021-08-25] MEDS: REMDESIVIR 100 MG/NS 250 ML 100 MG/250 ML BAG 250 MG IVPB (10:59)
[2021-08-25] MEDS: BARICITINIB 2 MG TABLET 4 MG PO (11:00)
[2021-08-25] MEDS: THERAPEUTIC MULTIVITAMINS/MINERALS TAB (*BKC) 1 TABLET PO (11:00)
[2021-08-25] MEDS: calcium polycarbophiL 625 MG TABLET 1250 MG PO (11:00)
[2021-08-25] MEDS: ARIPiprazole 5 MG TABLET PO (11:01)
[2021-08-25] MEDS: ROSUVASTATIN 10 MG TABLET PO (11:01)
[2021-08-25] MEDS: SERTRALINE HCL 50 MG TABLET 100 MG PO (11:01)
[2021-08-25 12:00] VITALS: BP 113/70; PULSE 85; RESP 20; TEMP 36.1; O2SAT 90
[2021-08-25 13:25] LABS: Troponin I 0.017 ng/mL (0.000-0.034)
[2021-08-25 16:00] VITALS: BP 121/70; PULSE 68; RESP 20; TEMP 36.3; O2SAT 91
[2021-08-25] MEDS: ENOXAPARIN 100 MG/ML SYRINGE SUB-Q ×2 (16:28→20:19)
[2021-08-25] MEDS: BENZOCAINE/MENTHOL (*BKC) 18 EA LOZENGE 1 LOZENGE PO (16:28)
[2021-08-25 16:38] LABS: Troponin I 0.019 ng/mL (0.000-0.034)
[2021-08-25 20:10] VITALS: BP 120/81; PULSE 69; RESP 20; TEMP 36.5; O2SAT 95
[2021-08-25 20:27] VITALS: O2SAT 93; O2SAT 95
[2021-08-26] VITALS (9 sets, daily range): BP systolic 98–135; BP diastolic 55–79; PULSE 60–72; RESP 18–20; TEMP 36.1–36.7; O2SAT 90–97
[2021-08-26] MEDS: oxyCODONE HCL (*CRX) 2.5 MG TAB IR PO ×3 (02:30→17:30)
[2021-08-26] MEDS: oxyCODONE/ACETAMINOPHEN (*CRX) 5-325 MG TABLET 1 TABLET PO ×3 (02:30→17:30)
[2021-08-26] MEDS: guaiFENesin/DEXTROMETHORPHAN 10 ML UDC PO ×3 (02:31→17:29)
[2021-08-26] MEDS: cefTRIAXone 2 GM in SODIUM CHLORIDE 0.9% IV 100 ML 200 ML IVPB (06:31)
[2021-08-26 07:08] LABS: Basophils Percent Auto 0.2 % (0.2-1.2); Hemoglobin 10.3 g/dL (12.0-15.0); Immature Granulocyte Absolute 0.19 K/mm3 (0.00-0.031); Immature Granulocyte Percent A 1.8 % (0-0.5); Lymphocytes Absolute Auto 1.58 K/mm3 (0.9-3.2); Lymphocytes Percent Auto 14.8 % (18.3-44.2); Mean Corpuscular HGB Conc 32.2 g/dl (32-36); Mean Corpuscular Volume 90.1 fl (80-100); Mean Platelet Volume 9.7 fl (7.4-10.4); Monocytes Absolute Auto 0.7 K/mm3 (0.1-0.6); Monocytes Percent Auto 6.5 % (2.6-8.5); Neutrophils Absolute Auto 8.2 K/mm3 (1.3-6.7); Neutrophils Percent Auto 76.7 % (45.5-73.1); Platelet Count Result 262 k/mm3 (150-375); Red Blood Count 3.55 M/mm3 (4.2-5.4); Red Cell Distribution Width 14.4 % (11.5-14.5); White Blood Count 10.7 K/mm3 (4.5-10.0)
[2021-08-26 07:16] LABS: INR 1.4; Prothrombin Time 16.6 Seconds (11.1-14.7)
[2021-08-26 07:35] LABS: Alanine Aminotransferase 32 U/L (4-35); Aspartate Amino Transferase 45 U/L (14-36); Estimated CRCL calculation 108 ml/min; Estimated Glomerular Filt Rate > 60
[2021-08-26 08:58] LABS: Alanine Aminotransferase 32 U/L (4-35); Albumin Level 3.4 g/dL (3.5-5.1); Alkaline Phosphatase 78 U/L (38-126); Anion Gap 11 mmol/L (8-16); Aspartate Amino Transferase 46 U/L (14-36); Bilirubin,Total 0.5 mg/dL (0.2-1.3); Blood Urea Nitrogen 17 mg/dL (7-17); Calcium 8.6 mg/dL (8.4-10.2); Carbon Dioxide 24 mmol/L (22-30); Chloride 102 mmol/L (98-107); Estimated CRCL calculation 108 ml/min; Estimated Glomerular Filt Rate > 60; Glucose 133 mg/dL (65-110); Magnesium 2.1 mg/dL (1.6-2.3); Potassium 3.2 mmol/L (3.4-5.0); Sodium 137 mmol/L (137-145)
--- NOTE | 2021-08-26 09:45 | PM.IMPN ---
Progress Note: A&P Assessment and Plan (1) Pneumonia due to 2019-nCoV: Code(s): U07.1 - COVID-19; J12.82 - Pneumonia due to coronavirus disease 2019 Status: Acute Assessment and Plan: Chest x-ray Extensive right, moderate left COVID pneumonia unchanged. from 08/24/21 CTA shows scattered bilateral ground-glass opacities no PE Positive COVID test 08/16/2021 remdesivir plus dexamethasone started 08/21/21 day 5, extend for 5 more days Rocephin and Zithromax at for antibacterial coverage day 5 Convalescent plasma 08/22/21 Supplemental oxygen to maintain a saturation greater than 92%, currently on 10L high flow cannula Baricitinib ordered 4mg PO Tessalon Perles, albuterol Supportive care Encourage prone lying Inflammatory markers: Dimer >20.00, Ferritin 372, LDH 1299, CRP 10.1, 08/25/21, repeat in the am IS and PEP therapy (2) Acute respiratory failure with hypoxia: Code(s): J96.01 - Acute respiratory failure with hypoxia Status: Acute Assessment and Plan: Oxygen saturation the ED was 65% Continue supplemental oxygen to maintain saturations greater than 92% Probably due to COVID See above (3) Bronchitis: Code(s): J40 - Bronchitis, not specified as acute or chronic Status: Acute Assessment and Plan: Supportive care Albuterol MDI (4) Abnormal LFTs: Code(s): R79.89 - Other specified abnormal findings of blood chemistry Status: Acute Assessment and Plan: AST/ALT 45/32, Alk Phos 78, trending down Will continue to trend Likely secondary to acute viral illness. Hep panel negative Consider RUQ ultrasound (5) JERRY (acute kidney injury): Code(s): N17.9 - Acute kidney failure, unspecified Status: Acute Assessment and Plan: Probably resolved at this time BUN/Cr elevated 18/1.10 upon admission Today 22/0.60 Baseline is 18/0.86 Likely to be pre renal azotemia Push oral fluids Trend labs (6) Obesity (BMI 30.0-34.9): Code(s): E66.9 - Obesity, unspecified Status: Acute Assessment and Plan: 1800 calorie restricted diet Lifestyle and diet modification (7) Degenerative arthritis of knee, bilateral: Qualifiers: Osteoarthritis type: unspecified Qualified Code(s): M17.0 - Bilateral primary osteoarthritis of knee Code(s): M17.0 - Bilateral primary osteoarthritis of knee Status: Chronic Assessment and Plan: Patient is planing to have bilateral arthroplasty (8) Hyponatremia: Code(s): E87.1 - Hypo-osmolality and hyponatremia Status: Acute Assessment and Plan: Na 137 this am Likely secondary to p.o. poor p.o. oral intake however SIADH component could be factoring in Continue to trend (9) Hypokalemia: Code(s): E87.6 - Hypokalemia Status: Acute Assessment and Plan: K 3.2 today, replaced with 40 PO once Replace as needed Trend labs Labs in the am (10) Chest pain: Code(s): R07.9 - Chest pain, unspecified Status: Acute Assessment and Plan: Chest pain with radiation to the back Trop I negative, repeated EKG no change Probably from the cough BNP slightly elevated at 129 One dose of lasix (11) Cough: Code(s): R05.9 - Cough, unspecified Status: Acute Assessment and Plan: Related to covid Add lozenge Robitussin (12) Elevated d-dimer: Code(s): R79.89 - Other specified abnormal findings of blood chemistry Status: Acute Assessment and Plan: D.Dimer elevated >72512 CTA ordered lovenox 1 mg/ml initiated Satuation is declining (13) Pulmonary embolism: Code(s): I26.99 - Other pulmonary embolism without acute cor pulmonale Status: Acute Assessment and Plan: CTA showed bilateral PE Full dose lovenox on board She
--- NOTE | 2021-08-26 09:45 | P.PNIM_ITS ---
Progress Note: A&P Assessment and Plan (1) Pneumonia due to 2019-nCoV: Code(s): U07.1 - COVID-19; J12.82 - Pneumonia due to coronavirus disease 2019 Status: Acute Assessment and Plan: * Chest x-ray Extensive right, moderate left COVID pneumonia unchanged. from 08/24/21 * CTA shows scattered bilateral ground-glass opacities no PE * Positive COVID test 08/16/2021 * remdesivir plus dexamethasone started 08/21/21 day 5, extend for 5 more days * Rocephin and Zithromax at for antibacterial coverage day 5 * Convalescent plasma 08/22/21 * Supplemental oxygen to maintain a saturation greater than 92%, currently on 10L high flow cannula * Baricitinib ordered 4mg PO * Tessalon Perles, albuterol * Supportive care * Encourage prone lying * Inflammatory markers: Dimer >20.00, Ferritin 372, LDH 1299, CRP 10.1, 08/25/21, repeat in the am * IS and PEP therapy (2) Acute respiratory failure with hypoxia: Code(s): J96.01 - Acute respiratory failure with hypoxia Status: Acute Assessment and Plan: * Oxygen saturation the ED was 65% * Continue supplemental oxygen to maintain saturations greater than 92% * Probably due to COVID * See above (3) Bronchitis: Code(s): J40 - Bronchitis, not specified as acute or chronic Status: Acute Assessment and Plan: * Supportive care * Albuterol MDI (4) Abnormal LFTs: Code(s): R79.89 - Other specified abnormal findings of blood chemistry Status: Acute Assessment and Plan: * AST/ALT 45/32, Alk Phos 78, trending down * Will continue to trend * Likely secondary to acute viral illness. * Hep panel negative * Consider RUQ ultrasound (5) JERRY (acute kidney injury): Code(s): N17.9 - Acute kidney failure, unspecified Status: Acute Assessment and Plan: * Probably resolved at this time * BUN/Cr elevated 18/1.10 upon admission * Today 22/0.60 * Baseline is 18/0.86 * Likely to be pre renal azotemia * Push oral fluids * Trend labs (6) Obesity (BMI 30.0-34.9): Code(s): E66.9 - Obesity, unspecified Status: Acute Assessment and Plan: * 1800 calorie restricted diet * Lifestyle and diet modification (7) Degenerative arthritis of knee, bilateral: Qualifiers: Osteoarthritis type: unspecified Qualified Code(s): M17.0 - Bilateral primary osteoarthritis of knee Code(s): M17.0 - Bilateral primary osteoarthritis of knee Status: Chronic Assessment and Plan: * Patient is planing to have bilateral arthroplasty (8) Hyponatremia: Code(s): E87.1 - Hypo-osmolality and hyponatremia Status: Acute Assessment and Plan: * Na 137 this am * Likely secondary to p.o. poor p.o. oral intake however SIADH component could be factoring in * Continue to trend (9) Hypokalemia: Code(s): E87.6 - Hypokalemia Status: Acute Assessment and Plan: * K 3.2 today, replaced with 40 PO once * Replace as needed * Trend labs * Labs in the am (10) Chest pain: Code(s): R07.9 - Chest pain, unspecified Status: Acute Assessment and Plan: * Chest pain with radiation to the back * Trop I negative, repeated * EKG no change * Probably from the cough * BNP slightly elevated at 129 * One dose of lasix
[2021-08-26] MEDS: SERTRALINE HCL 50 MG TABLET 100 MG PO (10:03)
[2021-08-26] MEDS: REMDESIVIR 100 MG/NS 250 ML 100 MG/250 ML BAG 250 MG IVPB (10:03)
[2021-08-26] MEDS: buPROPion HCL SR (12 HR) 150 MG TAB PO ×2 (10:03→20:30)
[2021-08-26] MEDS: calcium polycarbophiL 625 MG TABLET 1250 MG PO (10:04)
[2021-08-26] MEDS: BARICITINIB 2 MG TABLET 4 MG PO (10:04)
[2021-08-26] MEDS: THERAPEUTIC MULTIVITAMINS/MINERALS TAB (*BKC) 1 TABLET PO (10:04)
[2021-08-26] MEDS: ENOXAPARIN 100 MG/ML SYRINGE SUB-Q ×2 (10:05→20:30)
[2021-08-26] MEDS: ROSUVASTATIN 10 MG TABLET PO (10:05)
[2021-08-26] MEDS: ARIPiprazole 5 MG TABLET PO (10:05)
[2021-08-26] MEDS: POTASSIUM CHLORIDE 20 MEQ TABLET 40 MEQ PO (17:29)
[2021-08-26 21:43] LABS: Glucose Point of Care 157 mg/dl (65-105)
[2021-08-27] VITALS: BP 123/67; PULSE 67; RESP 18; TEMP 36.4; O2SAT 100
[2021-08-27] MEDS: oxyCODONE HCL (*CRX) 2.5 MG TAB IR PO ×4 (00:28→18:09)
[2021-08-27] MEDS: oxyCODONE/ACETAMINOPHEN (*CRX) 5-325 MG TABLET 1 TABLET PO ×4 (00:30→18:09)
[2021-08-27] MEDS: cefTRIAXone 2 GM in SODIUM CHLORIDE 0.9% IV 100 ML 200 ML IVPB (04:51)
[2021-08-27] MEDS: guaiFENesin/DEXTROMETHORPHAN 10 ML UDC PO ×2 (06:54→12:29)
[2021-08-27 07:07] LABS: Basophils Percent Auto 0.2 % (0.2-1.2); Eosinophils Absolute Auto 0.1 K/mm3 (0-0.3); Eosinophils Percent Auto 0.9 % (0-4.4); Hematocrit 32.1 % (37.0-47.0); Hemoglobin 10.2 g/dL (12.0-15.0); Immature Granulocyte Absolute 0.14 K/mm3 (0.00-0.031); Immature Granulocyte Percent A 1.3 % (0-0.5); Lymphocytes Absolute Auto 2.36 K/mm3 (0.9-3.2); Mean Corpuscular HGB Conc 31.8 g/dl (32-36); Mean Corpuscular Hemoglobin 28.7 pg (26-34); Mean Corpuscular Volume 90.2 fl (80-100); Mean Platelet Volume 9.6 fl (7.4-10.4); Monocytes Absolute Auto 0.6 K/mm3 (0.1-0.6); Monocytes Percent Auto 5.3 % (2.6-8.5); Neutrophils Absolute Auto 7.6 K/mm3 (1.3-6.7); Neutrophils Percent Auto 70.3 % (45.5-73.1); Platelet Count Result 321 k/mm3 (150-375); Red Blood Count 3.56 M/mm3 (4.2-5.4); Red Cell Distribution Width 14.3 % (11.5-14.5); White Blood Count 10.7 K/mm3 (4.5-10.0)
[2021-08-27 07:16] LABS: Alanine Aminotransferase 31 U/L (4-35); Albumin Level 3.3 g/dL (3.5-5.1); Alkaline Phosphatase 71 U/L (38-126); Anion Gap 6 mmol/L (8-16); Aspartate Amino Transferase 49 U/L (14-36); Bilirubin,Total 0.4 mg/dL (0.2-1.3); Blood Urea Nitrogen 17 mg/dL (7-17); CRP 3.4 mg/dL (<1.0); Calcium 8.4 mg/dL (8.4-10.2); Carbon Dioxide 29 mmol/L (22-30); Chloride 103 mmol/L (98-107); Estimated CRCL calculation 93 ml/min; Estimated Glomerular Filt Rate > 60; Glucose 113 mg/dL (65-110); Lactate Dehydrogenase 1375 U/L (313-618); Potassium 3.2 mmol/L (3.4-5.0); Sodium 138 mmol/L (137-145)
[2021-08-27 07:40] LABS: D Dimer 14.45 ug/mL (<0.48)
[2021-08-27 08:00] VITALS: BP 115/65; PULSE 70; RESP 20; TEMP 36.8; O2SAT 94
--- NOTE | 2021-08-27 08:00 | PM.IMPN ---
Progress Note: A&P Assessment and Plan (1) Pulmonary embolism: Code(s): I26.99 - Other pulmonary embolism without acute cor pulmonale Status: Acute Assessment and Plan: CTA showed bilateral PE Full dose lovenox on board She will need oral conversion prior to DC (2) Pneumonia due to 2019-nCoV: Code(s): U07.1 - COVID-19; J12.82 - Pneumonia due to coronavirus disease 2019 Status: Acute Assessment and Plan: Chest x-ray Diffuse covid pneumonia unchanged CTA shows scattered bilateral ground-glass opacities no PE Positive COVID test 08/16/2021 remdesivir plus dexamethasone started 08/21/21 day 6, extend for 5 more days Rocephin and Zithromax at for antibacterial coverage day 6 Convalescent plasma 08/22/21 Supplemental oxygen to maintain a saturation greater than 92%, currently on 10L high flow cannula Baricitinib ordered 4mg PO Tessalon Perles, albuterol Supportive care Encourage prone lying Inflammatory markers: Dimer 14.45, Ferritin 294, LDH 1375, CRP 3.4, 08/27/21 IS and PEP therapy (3) Acute respiratory failure with hypoxia: Code(s): J96.01 - Acute respiratory failure with hypoxia Status: Acute Assessment and Plan: Oxygen saturation the ED was 65% Continue supplemental oxygen to maintain saturations greater than 92% Probably due to COVID See above (4) Bronchitis: Code(s): J40 - Bronchitis, not specified as acute or chronic Status: Acute Assessment and Plan: Supportive care Albuterol MDI (5) Obesity (BMI 30.0-34.9): Code(s): E66.9 - Obesity, unspecified Status: Acute Assessment and Plan: 1800 calorie restricted diet Lifestyle and diet modification (6) Degenerative arthritis of knee, bilateral: Qualifiers: Osteoarthritis type: unspecified Qualified Code(s): M17.0 - Bilateral primary osteoarthritis of knee Code(s): M17.0 - Bilateral primary osteoarthritis of knee Status: Chronic Assessment and Plan: Patient is planing to have bilateral arthroplasty (7) Hyponatremia: Code(s): E87.1 - Hypo-osmolality and hyponatremia Status: Acute Assessment and Plan: Na 138 this am Likely secondary to p.o. poor p.o. oral intake however SIADH component could be factoring in Continue to trend Seems to be resolved at this time (8) Hypokalemia: Code(s): E87.6 - Hypokalemia Status: Acute Assessment and Plan: K 3.2 today, replaced with 60 PO once Replace as needed Trend labs Labs in the am (9) Chest pain: Code(s): R07.9 - Chest pain, unspecified Status: Acute Assessment and Plan: Chest pain with radiation to the back Trop I negative, repeated EKG no change Probably from the cough BNP slightly elevated at 129 One dose of lasix Seems to be resolved at this time (10) Cough: Code(s): R05.9 - Cough, unspecified Status: Acute Assessment and Plan: Related to covid Add lozenge Robitussin (11) Elevated d-dimer: Code(s): R79.89 - Other specified abnormal findings of blood chemistry Status: Acute Assessment and Plan: D.Dimer elevated >26244 CTA ordered lovenox 1 mg/ml initiated Satuation is declining (12) Abnormal LFTs: Code(s): R79.89 - Other specified abnormal findings of blood chemistry Status: Acute Assessment and Plan: AST/ALT 49/31, Alk Phos 78, trending down Will continue to trend Likely secondary to acute viral illness. Hep panel negative Consider RUQ ultrasound Seems to be resolved at this time (13) JERRY (acute kidney injury): Code(s): N17.9 - Acute kidney failure, unspecified Status: Acute Assessment and Plan: Probably resolved at this time BUN/Cr elevated 18/1.10 upon admission Today 17/0.7 [employer]
--- NOTE | 2021-08-27 08:00 | P.PNIM_ITS ---
Progress Note: A&P Assessment and Plan (1) Pulmonary embolism: Code(s): I26.99 - Other pulmonary embolism without acute cor pulmonale Status: Acute Assessment and Plan: * CTA showed bilateral PE * Full dose lovenox on board * She will need oral conversion prior to DC (2) Pneumonia due to 2019-nCoV: Code(s): U07.1 - COVID-19; J12.82 - Pneumonia due to coronavirus disease 2019 Status: Acute Assessment and Plan: * Chest x-ray Diffuse covid pneumonia unchanged * CTA shows scattered bilateral ground-glass opacities no PE * Positive COVID test 08/16/2021 * remdesivir plus dexamethasone started 08/21/21 day 6, extend for 5 more days * Rocephin and Zithromax at for antibacterial coverage day 6 * Convalescent plasma 08/22/21 * Supplemental oxygen to maintain a saturation greater than 92%, currently on 10L high flow cannula * Baricitinib ordered 4mg PO * Tessalon Perles, albuterol * Supportive care * Encourage prone lying * Inflammatory markers: Dimer 14.45, Ferritin 294, LDH 1375, CRP 3.4, 08/27/21 * IS and PEP therapy (3) Acute respiratory failure with hypoxia: Code(s): J96.01 - Acute respiratory failure with hypoxia Status: Acute Assessment and Plan: * Oxygen saturation the ED was 65% * Continue supplemental oxygen to maintain saturations greater than 92% * Probably due to COVID * See above (4) Bronchitis: Code(s): J40 - Bronchitis, not specified as acute or chronic Status: Acute Assessment and Plan: * Supportive care * Albuterol MDI (5) Obesity (BMI 30.0-34.9): Code(s): E66.9 - Obesity, unspecified Status: Acute Assessment and Plan: * 1800 calorie restricted diet * Lifestyle and diet modification (6) Degenerative arthritis of knee, bilateral: Qualifiers: Osteoarthritis type: unspecified Qualified Code(s): M17.0 - Bilateral primary osteoarthritis of knee Code(s): M17.0 - Bilateral primary osteoarthritis of knee Status: Chronic Assessment and Plan: * Patient is planing to have bilateral arthroplasty (7) Hyponatremia: Code(s): E87.1 - Hypo-osmolality and hyponatremia Status: Acute Assessment and Plan: * Na 138 this am * Likely secondary to p.o. poor p.o. oral intake however SIADH component could be factoring in * Continue to trend Seems to be resolved at this time (8) Hypokalemia: Code(s): E87.6 - Hypokalemia Status: Acute Assessment and Plan: * K 3.2 today, replaced with 60 PO once * Replace as needed * Trend labs * Labs in the am (9) Chest pain: Code(s): R07.9 - Chest pain, unspecified Status: Acute Assessment and Plan: * Chest pain with radiation to the back * Trop I negative, repeated * EKG no change * Probably from the cough * BNP slightly elevated at 129 * One dose of lasix Seems to be resolved at this time (10) Cough: Code(s): R05.9 - Cough, unspecified Status: Acute Assessment and Plan: * Related to covid * Add lozenge * Robitussin (11) Elevated d-dimer: Code(s): R79.89 - Other specified abnormal findings of blood chemistry Status: Acute Assessment and Plan: * D.Dimer elevated >90265 * CTA ordered
[2021-08-27] MEDS: calcium polycarbophiL 625 MG TABLET 1250 MG PO (09:30)
[2021-08-27] MEDS: ENOXAPARIN 100 MG/ML SYRINGE SUB-Q ×2 (09:30→20:23)
[2021-08-27] MEDS: ROSUVASTATIN 10 MG TABLET PO (09:30)
[2021-08-27] MEDS: buPROPion HCL SR (12 HR) 150 MG TAB PO ×2 (09:30→20:23)
[2021-08-27] MEDS: SERTRALINE HCL 50 MG TABLET 100 MG PO (09:30)
[2021-08-27] MEDS: ARIPiprazole 5 MG TABLET PO (09:30)
[2021-08-27] MEDS: BARICITINIB 2 MG TABLET 4 MG PO (09:30)
[2021-08-27] MEDS: THERAPEUTIC MULTIVITAMINS/MINERALS TAB (*BKC) 1 TABLET PO (09:30)
[2021-08-27 10:50] LABS: NT Pro B Type Natriuretic Pept 146 pg/mL (5-100)
[2021-08-27 10:51] LABS: INR 1.1
[2021-08-27 12:00] VITALS: BP 118/65; PULSE 110; RESP 20; TEMP 36.8; O2SAT 93
[2021-08-27] MEDS: POTASSIUM CHLORIDE 20 MEQ TABLET 60 MEQ PO (12:22)
[2021-08-27] MEDS: REMDESIVIR 100 MG/NS 250 ML 100 MG/250 ML BAG 250 MG IVPB (12:22)
[2021-08-27 16:00] VITALS: BP 121/67; PULSE 65; RESP 18; TEMP 37.1; O2SAT 94
[2021-08-27] MEDS: guaiFENesin/CODEINE (*CRX) 200/20 MG 10 ML SYRUP PO (18:04)
[2021-08-27 20:05] VITALS: BP 129/86; PULSE 99; RESP 18; TEMP 37; O2SAT 96
[2021-08-27 20:24] VITALS: O2SAT 94
[2021-08-28] VITALS (8 sets, daily range): BP systolic 96–117; BP diastolic 63–91; PULSE 59–82; RESP 16–19; TEMP 36.1–36.9; O2SAT 94–96
[2021-08-28] MEDS: guaiFENesin/DEXTROMETHORPHAN 10 ML UDC PO ×2 (00:14→04:59)
[2021-08-28] MEDS: oxyCODONE/ACETAMINOPHEN (*CRX) 5-325 MG TABLET 1 TABLET PO ×4 (00:14→21:19)
[2021-08-28] MEDS: oxyCODONE HCL (*CRX) 2.5 MG TAB IR PO ×4 (00:15→21:20)
[2021-08-28] MEDS: cefTRIAXone 2 GM in SODIUM CHLORIDE 0.9% IV 100 ML 200 ML IVPB (03:16)
[2021-08-28 06:33] LABS: Basophils Percent Auto 0.2 % (0.2-1.2); Eosinophils Percent Auto 0.1 % (0-4.4); Hematocrit 32.4 % (37.0-47.0); Hemoglobin 10.3 g/dL (12.0-15.0); Immature Granulocyte Absolute 0.12 K/mm3 (0.00-0.031); Lymphocytes Absolute Auto 0.81 K/mm3 (0.9-3.2); Lymphocytes Percent Auto 6.8 % (18.3-44.2); Mean Corpuscular HGB Conc 31.8 g/dl (32-36); Mean Corpuscular Hemoglobin 28.8 pg (26-34); Mean Corpuscular Volume 90.5 fl (80-100); Mean Platelet Volume 9.4 fl (7.4-10.4); Monocytes Absolute Auto 0.6 K/mm3 (0.1-0.6); Monocytes Percent Auto 4.8 % (2.6-8.5); Neutrophils Absolute Auto 10.3 K/mm3 (1.3-6.7); Neutrophils Percent Auto 87.1 % (45.5-73.1); Platelet Count Result 332 k/mm3 (150-375); Red Blood Count 3.58 M/mm3 (4.2-5.4); Red Cell Distribution Width 14.4 % (11.5-14.5); White Blood Count 11.8 K/mm3 (4.5-10.0)
[2021-08-28 06:50] LABS: Alanine Aminotransferase 30 U/L (4-35); Albumin Level 3.3 g/dL (3.5-5.1); Alkaline Phosphatase 61 U/L (38-126); Anion Gap 7 mmol/L (8-16); Aspartate Amino Transferase 42 U/L (14-36); Bilirubin,Total 0.4 mg/dL (0.2-1.3); Blood Urea Nitrogen 18 mg/dL (7-17); Calcium 8.3 mg/dL (8.4-10.2); Carbon Dioxide 26 mmol/L (22-30); Chloride 102 mmol/L (98-107); Estimated CRCL calculation 127 ml/min; Estimated Glomerular Filt Rate > 60; Glucose 161 mg/dL (65-110); Sodium 135 mmol/L (137-145)
[2021-08-28 07:18] LABS: INR 1.3; Prothrombin Time 15.9 Seconds (11.1-14.7)
--- NOTE | 2021-08-28 09:00 | PM.IMPN ---
Progress Note: A&P Assessment and Plan (1) Pulmonary embolism: Code(s): I26.99 - Other pulmonary embolism without acute cor pulmonale Status: Acute Assessment and Plan: CTA showed bilateral PE Full dose lovenox on board She will need oral conversion prior to DC (2) Pneumonia due to 2019-nCoV: Code(s): U07.1 - COVID-19; J12.82 - Pneumonia due to coronavirus disease 2019 Status: Acute Assessment and Plan: Chest x-ray Diffuse covid pneumonia unchanged CTA shows scattered bilateral ground-glass opacities no PE Positive COVID test 08/16/2021 remdesivir plus dexamethasone started 08/21/21 day 7, extend for 5 more days Rocephin and Zithromax at for antibacterial coverage day 7 Convalescent plasma 08/22/21 Supplemental oxygen to maintain a saturation greater than 92%, currently on 10L high flow cannula Baricitinib ordered 4mg PO Tessalon Perles, albuterol Supportive care Encourage prone lying Inflammatory markers: Dimer 14.45, Ferritin 294, LDH 1375, CRP 3.4, 08/27/21 IS and PEP therapy (3) Acute respiratory failure with hypoxia: Code(s): J96.01 - Acute respiratory failure with hypoxia Status: Acute Assessment and Plan: Oxygen saturation the ED was 65% Continue supplemental oxygen to maintain saturations greater than 92% Probably due to COVID See above (4) Bronchitis: Code(s): J40 - Bronchitis, not specified as acute or chronic Status: Acute Assessment and Plan: Supportive care Albuterol MDI (5) Obesity (BMI 30.0-34.9): Code(s): E66.9 - Obesity, unspecified Status: Acute Assessment and Plan: 1800 calorie restricted diet Lifestyle and diet modification (6) Degenerative arthritis of knee, bilateral: Qualifiers: Osteoarthritis type: unspecified Qualified Code(s): M17.0 - Bilateral primary osteoarthritis of knee Code(s): M17.0 - Bilateral primary osteoarthritis of knee Status: Chronic Assessment and Plan: Patient is planing to have bilateral arthroplasty (7) Hyponatremia: Code(s): E87.1 - Hypo-osmolality and hyponatremia Status: Acute Assessment and Plan: Na 135 this am Likely secondary to p.o. poor p.o. oral intake however SIADH component could be factoring in Continue to trend Seems to be resolved at this time (8) Hypokalemia: Code(s): E87.6 - Hypokalemia Status: Acute Assessment and Plan: K 4.0 today, replaced with 60 PO once Replace as needed Trend labs Labs in the am (9) Chest pain: Code(s): R07.9 - Chest pain, unspecified Status: Acute Assessment and Plan: Chest pain with radiation to the back Trop I negative, repeated EKG no change Probably from the cough BNP slightly elevated at 129 One dose of lasix Seems to be resolved at this time (10) Cough: Code(s): R05.9 - Cough, unspecified Status: Acute Assessment and Plan: Related to covid Add lozenge Robitussin (11) Elevated d-dimer: Code(s): R79.89 - Other specified abnormal findings of blood chemistry Status: Acute Assessment and Plan: D.Dimer elevated >09863 CTA ordered lovenox 1 mg/ml initiated Satuation is declining (12) Abnormal LFTs: Code(s): R79.89 - Other specified abnormal findings of blood chemistry Status: Acute Assessment and Plan: AST/ALT 42/30, Alk Phos 61, trending down Will continue to trend Likely secondary to acute viral illness. Hep panel negative Consider RUQ ultrasound Seems to be resolved at this time (13) JERRY (acute kidney injury): Code(s): N17.9 - Acute kidney failure, unspecified Status: Acute Assessment and Plan: Probably resolved at this time BUN/Cr elevated 18/1.10 upon admission Today 18/0.50 [employer]
--- NOTE | 2021-08-28 09:00 | P.PNIM_ITS ---
Progress Note: A&P Assessment and Plan (1) Pulmonary embolism: Code(s): I26.99 - Other pulmonary embolism without acute cor pulmonale Status: Acute Assessment and Plan: * CTA showed bilateral PE * Full dose lovenox on board * She will need oral conversion prior to DC (2) Pneumonia due to 2019-nCoV: Code(s): U07.1 - COVID-19; J12.82 - Pneumonia due to coronavirus disease 2019 Status: Acute Assessment and Plan: * Chest x-ray Diffuse covid pneumonia unchanged * CTA shows scattered bilateral ground-glass opacities no PE * Positive COVID test 08/16/2021 * remdesivir plus dexamethasone started 08/21/21 day 7, extend for 5 more days * Rocephin and Zithromax at for antibacterial coverage day 7 * Convalescent plasma 08/22/21 * Supplemental oxygen to maintain a saturation greater than 92%, currently on 10L high flow cannula * Baricitinib ordered 4mg PO * Tessalon Perles, albuterol * Supportive care * Encourage prone lying * Inflammatory markers: Dimer 14.45, Ferritin 294, LDH 1375, CRP 3.4, 08/27/21 * IS and PEP therapy (3) Acute respiratory failure with hypoxia: Code(s): J96.01 - Acute respiratory failure with hypoxia Status: Acute Assessment and Plan: * Oxygen saturation the ED was 65% * Continue supplemental oxygen to maintain saturations greater than 92% * Probably due to COVID * See above (4) Bronchitis: Code(s): J40 - Bronchitis, not specified as acute or chronic Status: Acute Assessment and Plan: * Supportive care * Albuterol MDI (5) Obesity (BMI 30.0-34.9): Code(s): E66.9 - Obesity, unspecified Status: Acute Assessment and Plan: * 1800 calorie restricted diet * Lifestyle and diet modification (6) Degenerative arthritis of knee, bilateral: Qualifiers: Osteoarthritis type: unspecified Qualified Code(s): M17.0 - Bilateral primary osteoarthritis of knee Code(s): M17.0 - Bilateral primary osteoarthritis of knee Status: Chronic Assessment and Plan: * Patient is planing to have bilateral arthroplasty (7) Hyponatremia: Code(s): E87.1 - Hypo-osmolality and hyponatremia Status: Acute Assessment and Plan: * Na 135 this am * Likely secondary to p.o. poor p.o. oral intake however SIADH component could be factoring in * Continue to trend Seems to be resolved at this time (8) Hypokalemia: Code(s): E87.6 - Hypokalemia Status: Acute Assessment and Plan: * K 4.0 today, replaced with 60 PO once * Replace as needed * Trend labs * Labs in the am (9) Chest pain: Code(s): R07.9 - Chest pain, unspecified Status: Acute Assessment and Plan: * Chest pain with radiation to the back * Trop I negative, repeated * EKG no change * Probably from the cough * BNP slightly elevated at 129 * One dose of lasix Seems to be resolved at this time (10) Cough: Code(s): R05.9 - Cough, unspecified Status: Acute Assessment and Plan: * Related to covid * Add lozenge * Robitussin (11) Elevated d-dimer: Code(s): R79.89 - Other specified abnormal findings of blood chemistry Status: Acute Assessment and Plan: * D.Dimer elevated >00740 * CTA ordered
[2021-08-28] MEDS: THERAPEUTIC MULTIVITAMINS/MINERALS TAB (*BKC) 1 TABLET PO (09:03)
[2021-08-28] MEDS: ARIPiprazole 5 MG TABLET PO (09:03)
[2021-08-28] MEDS: BARICITINIB 2 MG TABLET 4 MG PO (09:03)
[2021-08-28] MEDS: SERTRALINE HCL 50 MG TABLET 100 MG PO (09:03)
[2021-08-28] MEDS: buPROPion HCL SR (12 HR) 150 MG TAB PO ×2 (09:03→21:12)
[2021-08-28] MEDS: ENOXAPARIN 100 MG/ML SYRINGE SUB-Q ×2 (09:03→21:12)
[2021-08-28] MEDS: ROSUVASTATIN 10 MG TABLET PO (09:03)
[2021-08-28] MEDS: REMDESIVIR 100 MG/NS 250 ML 100 MG/250 ML BAG 250 MG IVPB (09:04)
--- NOTE | 2021-08-28 10:50 | PCNWS ---
Weekly nutritional screen. Patient is tolerating current diet with adequate intake of 90-100% of all meals. No weight loss reported. No nutritional needs at this time.
[2021-08-28] MEDS: guaiFENesin/CODEINE (*CRX) 200/20 MG 10 ML SYRUP PO ×2 (11:18→17:18)
[2021-08-29] VITALS (8 sets, daily range): BP systolic 91–108; BP diastolic 58–68; PULSE 60–78; RESP 16–20; TEMP 36–36.7; O2SAT 91–96
[2021-08-29] MEDS: guaiFENesin/CODEINE (*CRX) 200/20 MG 10 ML SYRUP PO ×2 (04:52→17:43)
[2021-08-29] MEDS: oxyCODONE HCL (*CRX) 2.5 MG TAB IR PO ×3 (04:53→21:57)
[2021-08-29] MEDS: oxyCODONE/ACETAMINOPHEN (*CRX) 5-325 MG TABLET 1 TABLET PO ×3 (04:54→21:56)
[2021-08-29] MEDS: cefTRIAXone 2 GM in SODIUM CHLORIDE 0.9% IV 100 ML IVPB (04:55)
[2021-08-29 06:02] LABS: Basophils Percent Auto 0.1 % (0.2-1.2); Hematocrit 33.1 % (37.0-47.0); Hemoglobin 10.4 g/dL (12.0-15.0); Immature Granulocyte Percent A 2.1 % (0-0.5); Lymphocytes Percent Auto 16.5 % (18.3-44.2); Mean Corpuscular HGB Conc 31.4 g/dl (32-36); Mean Corpuscular Hemoglobin 28.5 pg (26-34); Mean Corpuscular Volume 90.7 fl (80-100); Mean Platelet Volume 9.8 fl (7.4-10.4); Monocytes Absolute Auto 0.8 K/mm3 (0.1-0.6); Monocytes Percent Auto 7.8 % (2.6-8.5); Neutrophils Absolute Auto 7.1 K/mm3 (1.3-6.7); Neutrophils Percent Auto 73.5 % (45.5-73.1); Platelet Count Result 443 k/mm3 (150-375); Red Blood Count 3.65 M/mm3 (4.2-5.4); Red Cell Distribution Width 14.5 % (11.5-14.5); White Blood Count 9.7 K/mm3 (4.5-10.0)
[2021-08-29 06:18] LABS: INR 1.1; Prothrombin Time 14.5 Seconds (11.1-14.7)
[2021-08-29 06:20] LABS: Alanine Aminotransferase 69 U/L (4-35); Albumin Level 3.5 g/dL (3.5-5.1); Alkaline Phosphatase 67 U/L (38-126); Anion Gap 9 mmol/L (8-16); Aspartate Amino Transferase 72 U/L (14-36); Bilirubin,Total 0.4 mg/dL (0.2-1.3); Blood Urea Nitrogen 19 mg/dL (7-17); CRP 3.1 mg/dL (<1.0); Calcium 8.7 mg/dL (8.4-10.2); Carbon Dioxide 29 mmol/L (22-30); Chloride 99 mmol/L (98-107); Estimated CRCL calculation 93 ml/min; Estimated Glomerular Filt Rate > 60; Glucose 115 mg/dL (65-110); Lactate Dehydrogenase 1170 U/L (313-618); Magnesium 2.2 mg/dL (1.6-2.3); Potassium 4.3 mmol/L (3.4-5.0); Sodium 137 mmol/L (137-145)
[2021-08-29 06:34] LABS: D Dimer 4.13 ug/mL (<0.48)
[2021-08-29] MEDS: REMDESIVIR 100 MG/NS 250 ML 100 MG/250 ML BAG 250 MG IVPB (09:27)
[2021-08-29] MEDS: calcium polycarbophiL 625 MG TABLET 1250 MG PO (09:28)
[2021-08-29] MEDS: ARIPiprazole 5 MG TABLET PO (09:28)
[2021-08-29] MEDS: SERTRALINE HCL 50 MG TABLET 100 MG PO (09:28)
[2021-08-29] MEDS: ENOXAPARIN 100 MG/ML SYRINGE SUB-Q (09:29)
[2021-08-29] MEDS: THERAPEUTIC MULTIVITAMINS/MINERALS TAB (*BKC) 1 TABLET PO (09:29)
[2021-08-29] MEDS: BARICITINIB 2 MG TABLET 4 MG PO (09:29)
[2021-08-29] MEDS: buPROPion HCL SR (12 HR) 150 MG TAB PO ×2 (09:29→21:56)
[2021-08-29] MEDS: ROSUVASTATIN 10 MG TABLET PO (09:29)
--- NOTE | 2021-08-29 11:30 | P.PNIM_ITS ---
Progress Note: A&P Assessment and Plan (1) Pulmonary embolism: Code(s): I26.99 - Other pulmonary embolism without acute cor pulmonale Status: Acute Assessment and Plan: * CTA showed bilateral PE * Full dose lovenox on board * Convert to eliquis (2) Pneumonia due to 2019-nCoV: Code(s): U07.1 - COVID-19; J12.82 - Pneumonia due to coronavirus disease 2019 Status: Acute Assessment and Plan: * Chest x-ray Diffuse lung disease w/mild worsening on the left side * CTA shows scattered bilateral ground-glass opacities no PE * Positive COVID test 08/16/2021 * remdesivir plus dexamethasone started 08/21/21 day 8, extend for 5 more days * Rocephin and Zithromax at for antibacterial coverage day 8 * Convalescent plasma 08/22/21 * Supplemental oxygen to maintain a saturation greater than 92%, currently on 2L nasal cannula * Baricitinib ordered 4mg PO * Tessalon Perles, albuterol * Supportive care * Encourage prone lying * Inflammatory markers: Dimer 4.13, Ferritin 337, LDH 1170, CRP 3.1, 08/29/21 * IS and PEP therapy (3) Acute respiratory failure with hypoxia: Code(s): J96.01 - Acute respiratory failure with hypoxia Status: Acute Assessment and Plan: * Oxygen saturation the ED was 65%, desaturation noted on RA with activity to 79 * Continue supplemental oxygen to maintain saturations greater than 92% * Probably due to COVID * See above (4) Bronchitis: Code(s): J40 - Bronchitis, not specified as acute or chronic Status: Acute Assessment and Plan: * Supportive care * Albuterol MDI (5) Obesity (BMI 30.0-34.9): Code(s): E66.9 - Obesity, unspecified Status: Acute Assessment and Plan: * 1800 calorie restricted diet * Lifestyle and diet modification (6) Degenerative arthritis of knee, bilateral: Qualifiers: Osteoarthritis type: unspecified Qualified Code(s): M17.0 - Bilateral primary osteoarthritis of knee Code(s): M17.0 - Bilateral primary osteoarthritis of knee Status: Chronic Assessment and Plan: * Patient is planing to have bilateral arthroplasty (7) Hyponatremia: Code(s): E87.1 - Hypo-osmolality and hyponatremia Status: Acute Assessment and Plan: * Na 137 this am * Likely secondary to p.o. poor p.o. oral intake however SIADH component could be factoring in * Continue to trend Seems to be resolved at this time (8) Hypokalemia: Code(s): E87.6 - Hypokalemia Status: Acute Assessment and Plan: * K 4.3 today * Replace as needed * Trend labs * Labs in the am (9) Chest pain: Code(s): R07.9 - Chest pain, unspecified Status: Acute Assessment and Plan: * Chest pain with radiation to the back * Trop I negative, repeated * EKG no change * Probably from the cough * BNP slightly elevated at 129 * One dose of lasix Seems to be resolved at this time (10) Cough: Code(s): R05.9 - Cough, unspecified Status: Acute Assessment and Plan: * Related to covid * Add lozenge * Robitussin (11) Elevated d-dimer: Code(s): R79.89 - Other specified abnormal findings of blood chemistry Status: Acute Assessment and Plan: * D.Dimer elevated >84763 * CTA
--- NOTE | 2021-08-29 11:30 | PM.IMPN ---
Progress Note: A&P Assessment and Plan (1) Pulmonary embolism: Code(s): I26.99 - Other pulmonary embolism without acute cor pulmonale Status: Acute Assessment and Plan: CTA showed bilateral PE Full dose lovenox on board Convert to eliquis (2) Pneumonia due to 2019-nCoV: Code(s): U07.1 - COVID-19; J12.82 - Pneumonia due to coronavirus disease 2019 Status: Acute Assessment and Plan: Chest x-ray Diffuse lung disease w/mild worsening on the left side CTA shows scattered bilateral ground-glass opacities no PE Positive COVID test 08/16/2021 remdesivir plus dexamethasone started 08/21/21 day 8, extend for 5 more days Rocephin and Zithromax at for antibacterial coverage day 8 Convalescent plasma 08/22/21 Supplemental oxygen to maintain a saturation greater than 92%, currently on 2L nasal cannula Baricitinib ordered 4mg PO Tessalon Perles, albuterol Supportive care Encourage prone lying Inflammatory markers: Dimer 4.13, Ferritin 337, LDH 1170, CRP 3.1, 08/29/21 IS and PEP therapy (3) Acute respiratory failure with hypoxia: Code(s): J96.01 - Acute respiratory failure with hypoxia Status: Acute Assessment and Plan: Oxygen saturation the ED was 65%, desaturation noted on RA with activity to 79 Continue supplemental oxygen to maintain saturations greater than 92% Probably due to COVID See above (4) Bronchitis: Code(s): J40 - Bronchitis, not specified as acute or chronic Status: Acute Assessment and Plan: Supportive care Albuterol MDI (5) Obesity (BMI 30.0-34.9): Code(s): E66.9 - Obesity, unspecified Status: Acute Assessment and Plan: 1800 calorie restricted diet Lifestyle and diet modification (6) Degenerative arthritis of knee, bilateral: Qualifiers: Osteoarthritis type: unspecified Qualified Code(s): M17.0 - Bilateral primary osteoarthritis of knee Code(s): M17.0 - Bilateral primary osteoarthritis of knee Status: Chronic Assessment and Plan: Patient is planing to have bilateral arthroplasty (7) Hyponatremia: Code(s): E87.1 - Hypo-osmolality and hyponatremia Status: Acute Assessment and Plan: Na 137 this am Likely secondary to p.o. poor p.o. oral intake however SIADH component could be factoring in Continue to trend Seems to be resolved at this time (8) Hypokalemia: Code(s): E87.6 - Hypokalemia Status: Acute Assessment and Plan: K 4.3 today Replace as needed Trend labs Labs in the am (9) Chest pain: Code(s): R07.9 - Chest pain, unspecified Status: Acute Assessment and Plan: Chest pain with radiation to the back Trop I negative, repeated EKG no change Probably from the cough BNP slightly elevated at 129 One dose of lasix Seems to be resolved at this time (10) Cough: Code(s): R05.9 - Cough, unspecified Status: Acute Assessment and Plan: Related to covid Add lozenge Robitussin (11) Elevated d-dimer: Code(s): R79.89 - Other specified abnormal findings of blood chemistry Status: Acute Assessment and Plan: D.Dimer elevated >16352 CTA ordered lovenox 1 mg/ml initiated Satuation is declining Better at this time (12) Abnormal LFTs: Code(s): R79.89 - Other specified abnormal findings of blood chemistry Status: Acute Assessment and Plan: AST/ALT 72/69, Alk Phos 67, Back up today Will continue to trend Likely secondary to acute viral illness. Hep panel negative Consider RUQ ultrasound Seems to be resolved at this time (13) JERRY (acute kidney injury): Code(s): N17.9 - Acute kidney failure, unspecified Status: Acute Assessment and Plan: Probably resolved at this time BUN/Cr elevated 18/1.10 upo
[2021-08-29] MEDS: LIDOCAINE 5% PATCH 1 PATCH TRANSDERM (15:48)
[2021-08-29] MEDS: APIXABAN 5 MG TABLET 10 MG PO (21:57)
[2021-08-30] VITALS (32 sets, daily range): BP systolic 58–131; BP diastolic 0–80; PULSE 82–140; RESP 18–50; TEMP 35.8–36.6; O2SAT 62–100
[2021-08-30] MEDS: cefTRIAXone 2 GM in SODIUM CHLORIDE 0.9% IV 100 ML IVPB (04:41)
[2021-08-30] MEDS: SODIUM CHLORIDE 0.9% IV 500 ML IV CONT ×2 (04:50→11:23)
[2021-08-30] MEDS: KETOROLAC 30 MG/ML VIAL (*BKC) IV PUSH (05:48)
[2021-08-30 07:43] LABS: Basophils Absolute Auto 0.1 K/mm3 (0.0-0.1); Basophils Percent Auto 0.2 % (0.2-1.2); Hematocrit 29.5 % (37.0-47.0); Hemoglobin 8.8 g/dL (12.0-15.0); Immature Granulocyte Absolute 0.66 K/mm3 (0.00-0.031); Lymphocytes Absolute Auto 2.69 K/mm3 (0.9-3.2); Lymphocytes Percent Auto 12.4 % (18.3-44.2); Mean Corpuscular HGB Conc 29.8 g/dl (32-36); Mean Corpuscular Hemoglobin 28.4 pg (26-34); Mean Corpuscular Volume 95.2 fl (80-100); Mean Platelet Volume 10.5 fl (7.4-10.4); Monocytes Absolute Auto 1.7 K/mm3 (0.1-0.6); Monocytes Percent Auto 7.9 % (2.6-8.5); Neutrophils Absolute Auto 16.7 K/mm3 (1.3-6.7); Neutrophils Percent Auto 76.5 % (45.5-73.1); Platelet Count Result 649 k/mm3 (150-375); Red Cell Distribution Width 14.7 % (11.5-14.5); White Blood Count 21.8 K/mm3 (4.5-10.0)
[2021-08-30 07:57] LABS: INR 1.5; Prothrombin Time 17.9 Seconds (11.1-14.7)
[2021-08-30 07:58] LABS: Alanine Aminotransferase 57 U/L (4-35); Albumin Level 3.2 g/dL (3.5-5.1); Alkaline Phosphatase 57 U/L (38-126); Anion Gap 14 mmol/L (8-16); Aspartate Amino Transferase 49 U/L (14-36); Bilirubin,Total 0.4 mg/dL (0.2-1.3); Blood Urea Nitrogen 32 mg/dL (7-17); Calcium 8.3 mg/dL (8.4-10.2); Carbon Dioxide 21 mmol/L (22-30); Chloride 101 mmol/L (98-107); Estimated CRCL calculation 56 ml/min; Estimated Glomerular Filt Rate 47; Glucose 146 mg/dL (65-110); Potassium 4.3 mmol/L (3.4-5.0); Sodium 136 mmol/L (137-145)
[2021-08-30] MEDS: REMDESIVIR 100 MG/NS 250 ML 100 MG/250 ML BAG 250 MG IVPB (09:38)
[2021-08-30] MEDS: BARICITINIB 2 MG TABLET PO (09:39)
[2021-08-30] MEDS: APIXABAN 5 MG TABLET 10 MG PO (09:39)
[2021-08-30] MEDS: calcium polycarbophiL 625 MG TABLET 1250 MG PO (09:39)
[2021-08-30] MEDS: SERTRALINE HCL 50 MG TABLET 100 MG PO (09:40)
[2021-08-30] MEDS: buPROPion HCL SR (12 HR) 150 MG TAB PO (09:40)
[2021-08-30] MEDS: ROSUVASTATIN 10 MG TABLET PO (09:40)
[2021-08-30] MEDS: ARIPiprazole 5 MG TABLET PO (09:40)
[2021-08-30] MEDS: THERAPEUTIC MULTIVITAMINS/MINERALS TAB (*BKC) 1 TABLET PO (09:40)
[2021-08-30] MEDS: LIDOCAINE 5% PATCH 1 PATCH TRANSDERM (09:41)
--- NOTE | 2021-08-30 09:45 | PM.IMPN ---
Progress Note: A&P Assessment and Plan (1) Hemorrhagic shock: Code(s): R57.8 - Other shock Status: Acute Assessment and Plan: CT found large hematoma in the RLQ that extended to the gluteal region HGB 3.5 4 units of PRBC, 1 units of cryo, 2 units of FFP, all infused H/H stable this am Surgery consulted thank you for your help Trend H/H Transfuse as indicated (2) Anemia associated with acute blood loss: Code(s): D62 - Acute posthemorrhagic anemia Status: Acute Assessment and Plan: See above (3) Sepsis: Code(s): A41.9 - Sepsis, unspecified organism Status: Acute Assessment and Plan: Meets SIRS with tachycardia, hypotension 84/52, hypothermia, leukocytosis Sofa 2 points, QSofa score 2 points and is considered high risk Lactic acid 5.9, repeat lactic 4.5 -> 3.4 Infection source unknown ABG shows metabolic alkalosis WBC 21.8 today New renal failure with BUN/Cr 32/1.20 3L bolus of LR (30ml/kg), repeated 3L of LR Blood cultures pending Sputum and urine culture ordered Zosyn and vanco ordered CT of chest/ABD/Pel for large hematoma (4) Leukocytosis: Code(s): D72.829 - Elevated white blood cell count, unspecified Status: Acute Assessment and Plan: WBC elevated 21.8 08/30/21 in the am Trending up and currently 37.3 Antibiotics on board Continue to trend (5) JERRY (acute kidney injury): Code(s): N17.9 - Acute kidney failure, unspecified Status: Acute Assessment and Plan: Sepsis picture this am BUN/Cr elevated 18/1.10 upon admission Today 32/1.20 Baseline is 18/0.86 IV fluids with 3000ml bolus Sepsis protocol ordered Trend labs (6) Pulmonary embolism: Code(s): I26.99 - Other pulmonary embolism without acute cor pulmonale Status: Acute Assessment and Plan: CTA showed bilateral PE Full dose lovenox, switched to oral eliquis on hold since H/H has dropped (7) Pneumonia due to 2019-nCoV: Code(s): U07.1 - COVID-19; J12.82 - Pneumonia due to coronavirus disease 2019 Status: Acute Assessment and Plan: Chest x-ray Diffuse lung disease w/mild worsening on the left side CTA shows scattered bilateral ground-glass opacities no PE Positive COVID test 08/16/2021 remdesivir plus dexamethasone started 08/21/21 day 9, extend for 5 more days Rocephin and Zithromax DC'd at this time Convalescent plasma 08/22/21 Supplemental oxygen to maintain a saturation greater than 92%, currently on 6L nasal cannula Baricitinib ordered 4mg PO, DC'd at this time Tessalon Perles, albuterol Supportive care Encourage prone lying Inflammatory markers: Dimer 4.13, Ferritin 337, LDH 1170, CRP 3.1, 08/29/21, repeat in the am IS and PEP therapy (8) Acute respiratory failure with hypoxia: Code(s): J96.01 - Acute respiratory failure with hypoxia Status: Acute Assessment and Plan: Oxygen saturation the ED was 65%, desaturation noted on RA with activity to 79% Continue supplemental oxygen to maintain saturations greater than 92% Probably due to COVID, howver, now could also be sepsis See above (9) Bronchitis: Code(s): J40 - Bronchitis, not specified as acute or chronic Status: Acute Assessment and Plan: Supportive care Albuterol MDI (10) Cough: Code(s): R05.9 - Cough, unspecified Status: Acute Assessment and Plan: Related to covid Add lozenge Robitussin (11) Elevated d-dimer: Code(s): R79.89 - Other specified abnormal findings of blood chemistry Status: Acute Assessment and Plan: D.Dimer elevated >18880 CTA ordered lovenox 1 mg/ml initiated Satuation is declining Better at this time (12) Abnormal LFTs: Code(s): R79.89 - Other specified abnormal findings of blood chemistry Sta
--- NOTE | 2021-08-30 09:45 | P.PNIM_ITS ---
Progress Note: A&P Assessment and Plan (1) Hemorrhagic shock: Code(s): R57.8 - Other shock Status: Acute Assessment and Plan: * CT found large hematoma in the RLQ that extended to the gluteal region * HGB 3.5 * 4 units of PRBC, 1 units of cryo, 2 units of FFP, all infused * H/H stable this am * Surgery consulted thank you for your help * Trend H/H * Transfuse as indicated (2) Anemia associated with acute blood loss: Code(s): D62 - Acute posthemorrhagic anemia Status: Acute Assessment and Plan: * See above (3) Sepsis: Code(s): A41.9 - Sepsis, unspecified organism Status: Acute Assessment and Plan: * Meets SIRS with tachycardia, hypotension 84/52, hypothermia, leukocytosis * Sofa 2 points, QSofa score 2 points and is considered high risk * Lactic acid 5.9, repeat lactic 4.5 -> 3.4 * Infection source unknown * ABG shows metabolic alkalosis * WBC 21.8 today * New renal failure with BUN/Cr 32/1.20 * 3L bolus of LR (30ml/kg), repeated 3L of LR * Blood cultures pending * Sputum and urine culture ordered * Zosyn and vanco ordered * CT of chest/ABD/Pel for large hematoma (4) Leukocytosis: Code(s): D72.829 - Elevated white blood cell count, unspecified Status: Acute Assessment and Plan: * WBC elevated 21.8 08/30/21 in the am * Trending up and currently 37.3 * Antibiotics on board * Continue to trend (5) JERRY (acute kidney injury): Code(s): N17.9 - Acute kidney failure, unspecified Status: Acute Assessment and Plan: * Sepsis picture this am * BUN/Cr elevated 18/1.10 upon admission * Today 32/1.20 * Baseline is 18/0.86 * IV fluids with 3000ml bolus * Sepsis protocol ordered * Trend labs (6) Pulmonary embolism: Code(s): I26.99 - Other pulmonary embolism without acute cor pulmonale Status: Acute Assessment and Plan: * CTA showed bilateral PE * Full dose lovenox, switched to oral * eliquis on hold since H/H has dropped (7) Pneumonia due to 2019-nCoV: Code(s): U07.1 - COVID-19; J12.82 - Pneumonia due to coronavirus disease 2018 Status: Acute Assessment and Plan: * Chest x-ray Diffuse lung disease w/mild worsening on the left side * CTA shows scattered bilateral ground-glass opacities no PE * Positive COVID test 08/16/2021 * remdesivir plus dexamethasone started 08/21/21 day 9, extend for 5 more days * Rocephin and Zithromax DC'd at this time * Convalescent plasma 08/22/21 * Supplemental oxygen to maintain a saturation greater than 92%, currently on 6L nasal cannula * Baricitinib ordered 4mg PO, DC'd at this time * Tessalon Perles, albuterol * Supportive care * Encourage prone lying * Inflammatory markers: Dimer 4.13, Ferritin 337, LDH 1170, CRP 3.1, 08/29/21, repeat in the am * IS and PEP therapy (8) Acute respiratory failure with hypoxia: Code(s): J96.01 - Acute respiratory failure with hypoxia Status: Acute Assessment and Plan: * Oxygen saturation the ED was 65%, desaturation noted on RA with activity to 79% * Continue supplemental oxygen to maintain saturations greater than 92% * Probably due to COVID, howver, now could also be sepsis * See above (9) Bronchitis: Code(s): J40 - Bronchitis, not specified as acute or chronic Status: Acute Assessment and
[2021-08-30 10:56] LABS: Alveolar/Arterial O2 Gradient 56.2 mmHg; Base Excess ABG -5.1 mEq/l (+/-2.0); Carboxyhemoglobin 0.1 % THb (0-2.0); Fractional Inspired Oxygen 44 %; HCO3 ABG 16.9 mEq/l (22.0-26.0); Oxygen Content ABG 13.1 %vol (16.0-22.0); Oxygen Saturation ABG 99.6 % (95.0-100.0); Oxyhemoglobin 98.1 % THb (90.0-100.0); PO2 ABG 232.2 mmHg (80.0-100.0); PO2 FiO2 Ratio Arterial Blood 5.28 %; Reduced Hemoglobin 1.8 %THb (0-5.0); Total Hemoglobin 9.1 g/dL (12.0-18.0)
[2021-08-30 10:57] LABS: Device HIGH FLOW NASAL CANN; Modified Allen's Test Pass; PCO2 ABG 22.2 mmHg (35.0-45.0); Site Drawn RIGHT RADIAL
[2021-08-30 11:12] LABS: Lactic Acid Reflex 5.9 mmol/L (0.7-2.1)
[2021-08-30 12:19] LABS: Add Urine Microscopic? YES; Amorphous Sediment Urine Few; Appearance Urine Cloudy (Clear); Bacteria Urine Trace /hpf; Bilirubin Urine Negative (Negative); Blood Urine 2+ (Negative); Color Urine Amber (Yellow); Glucose Urine UA Negative (Negative); Hyaline Casts Urine 20-29 /lpf; Ketones Urine Negative (Negative); Leukocyte Esterase Ur Negative LEU/UL (Negative); Mucus Urine Few /lpf; Nitrate Urine Negative (Negative); Protein Urine 1+ mg/dL (Negative); Specific Grav Ur 1.025 (1.001-1.035); Squamous Epithelial Cell Urine Few /hpf (Few); Urobilinogen Urine Negative mg/dL (<2.0)
[2021-08-30] MEDS: LORazepam INJ (*CRX) 2 MG/ML VIAL 1 MG IV PUSH ×2 (12:23→16:06)
[2021-08-30] MEDS: WATER FOR IRRIGATION, STERILE 1,000 ML BOTTLE 1000 ML (12:26)
[2021-08-30 12:38] LABS: Glucose Point of Care 158 mg/dl (65-105)
[2021-08-30 12:51] LABS: Hematocrit 23.6 % (37.0-47.0); Hemoglobin 7.2 g/dL (12.0-15.0); Mean Corpuscular HGB Conc 30.5 g/dl (32-36); Mean Corpuscular Volume 98.3 fl (80-100); Mean Platelet Volume 10.6 fl (7.4-10.4); Platelet Count Result 582 k/mm3 (150-375); Red Cell Distribution Width 14.8 % (11.5-14.5); White Blood Count 23.5 K/mm3 (4.5-10.0)
[2021-08-30 13:07] LABS: CRP 1.5 mg/dL (<1.0)
[2021-08-30 13:24] LABS: Troponin I 0.246 ng/mL (0.000-0.034)
[2021-08-30 13:25] LABS: Magnesium 2.2 mg/dL (1.6-2.3)
[2021-08-30] MEDS: LIDOCAINE HCL 1% PF INJ 5 ML VIAL INFILTRATE (13:30)
--- NOTE | 2021-08-30 13:30 | PC.NURSE ---
This patient, Arielle Zuleta, was received from [[phone] ] on 08/30/21 at 1250. Patient/family oriented to unit policies and routines. Report received from SARAH Carver @ bedside
[2021-08-30 13:53] LABS: Reflex Lactic Acid Yes or No Add Lactic
[2021-08-30 14:53] LABS: Alanine Aminotransferase 45 U/L (4-35); Albumin Level 2.3 g/dL (3.5-5.1); Alkaline Phosphatase 44 U/L (38-126); Anion Gap 10 mmol/L (8-16); Aspartate Amino Transferase 73 U/L (14-36); Bilirubin,Total 0.1 mg/dL (0.2-1.3); Blood Urea Nitrogen 33 mg/dL (7-17); Calcium 7.1 mg/dL (8.4-10.2); Carbon Dioxide 19 mmol/L (22-30); Chloride 103 mmol/L (98-107); Estimated CRCL calculation 46 ml/min; Estimated Glomerular Filt Rate 36; Glucose 152 mg/dL (65-110); Potassium 4.2 mmol/L (3.4-5.0); Sodium 132 mmol/L (137-145)
[2021-08-30 14:56] LABS: Lactic Acid Reflex 4.5 mmol/L (0.7-2.1)
[2021-08-30 15:25] LABS: Creatine Kinase 58 U/L (30-135)
[2021-08-30] MEDS: LACTATED RINGERS 3,000 ML 999 ML IV CONT (16:06)
[2021-08-30] MEDS: HYDROCORTISONE SODIUM SUCCINATE 100 MG/2 ML VIAL 50 MG IV PUSH (16:45)
[2021-08-30] MEDS: MORPHINE SULFATE (*CRX) 2 MG/ML INJ 1 MG IV PUSH (16:45)
[2021-08-30] MEDS: LACTATED RINGERS 1,000 ML 125 ML IV CONT (16:57)
[2021-08-30 17:29] LABS: Troponin I 0.208 ng/mL (0.000-0.034)
[2021-08-30 17:46] LABS: Lactic Acid 3.4 mmol/L (0.7-2.1)
[2021-08-30 17:54] LABS: NT Pro B Type Natriuretic Pept 363 pg/mL (5-100)
[2021-08-30 18:07] LABS: Glucose Point of Care 191 mg/dl (65-105)
[2021-08-30 18:12] LABS: Basophils Percent Auto 0.1 % (0.2-1.2); Immature Granulocyte Absolute 0.59 K/mm3 (0.00-0.031); Immature Granulocyte Percent A 4.1 % (0-0.5); Lymphocytes Absolute Auto 1.63 K/mm3 (0.9-3.2); Lymphocytes Percent Auto 11.3 % (18.3-44.2); Mean Corpuscular HGB Conc 30.7 g/dl (32-36); Mean Corpuscular Hemoglobin 29.7 pg (26-34); Mean Corpuscular Volume 96.6 fl (80-100); Mean Platelet Volume 10.4 fl (7.4-10.4); Monocytes Absolute Auto 0.6 K/mm3 (0.1-0.6); Monocytes Percent Auto 4.3 % (2.6-8.5); Neutrophils Absolute Auto 11.6 K/mm3 (1.3-6.7); Neutrophils Percent Auto 80.2 % (45.5-73.1); Platelet Count Result 301 k/mm3 (150-375); Red Blood Count 1.18 M/mm3 (4.2-5.4); White Blood Count 14.5 K/mm3 (4.5-10.0)
[2021-08-30] MEDS: LORazepam INJ (*CRX) 2 MG/ML VIAL 0.5 MG IV PUSH (18:15)
[2021-08-30 18:17] LABS: Hemoglobin 3.5 g/dL (12.0-15.0)
[2021-08-30 18:18] LABS: Hematocrit 11.4 % (37.0-47.0)
--- NOTE | 2021-08-30 18:30 | PDCODEBLUE ---
[facility] Note Code Blue Note Time Arrived at [facility]: 08/30/21 18:30 Initial Rhythm on Arrival: Sinus tachycardia Airway Management: Initiated bagging pt on arrival Chest Compressions: Initiated upon arrival Result of Code Tom: Pt transferred to ICU Cardiac Rhythm Post Code: Sinus tachycardia Code Blue Summary: Patient was in bed and started to have agonal respirations. Initial heart rate was 120s. Started to bag the patient for respiratory support. It was noted her heart rate dropped to the 60s. Pulse became absent, and CPR was initiated. Respiratory took over bagging. Krystyna the ICU director called for the steff mcnamara. Crash cart arrived and pads were placed with no interruption to CPR. Dr. Lawton arrived and setup for intubation. Epi was given. Pulse check after 2 minutes of CPR revealed PEA. CPR resumed and another epi was given. ET placed. 2 minutes of CPR performed. Pulse check performed with pulse present. Sinus tachycardia shown on the monitor. Patient continued to be bag. Chest xray performed, ET was retracted 3 cm. Bilateral breath sounds present. ICU doctor informed. Patient transferred to ICU.
[2021-08-30] MEDS: SODIUM CHLORIDE 0.9% IV 250 ML 30 ML IV CONT ×3 (18:47→22:14)
[2021-08-30 19:16] LABS: Troponin I 0.344 ng/mL (0.000-0.034)
[2021-08-30] MEDS: NOREPINEPHRINE 8 MG/D5W 250 ML 8 MG/250 ML BAG 56.25 MG IV CONT (19:30)
[2021-08-30] MEDS: MIDAZOLAM 100MG/NS 100ML(*CRX) 100 MG/100 ML BAG 6 MG IV CONT (19:30)
--- NOTE | 2021-08-30 19:58 | PC.NURSE ---
1814: Pt became increasingly confused, ripping oxygen and telemetry leads off. CLASSIFIED COPY CONTROL CLERK called to bedside to reasses patient. surveillance monitor unable to obtain O2 sat at times, when able to obtain sats patient was sating in the 70's. Pt on 15L HFNC and 15L NRB at this time. As RN, CLASSIFIED COPY CONTROL CLERK, and PROPOSAL MANAGER WRITER (tech) was in room with patient; patient became more lethargic and obtunded. CLASSIFIED COPY CONTROL CLERK called ER MD for intubation, and CLASSIFIED COPY CONTROL CLERK began to bag patient. As the head of the bed was lowered for intubation, patient lost pulse and a code blue was called.
--- NOTE | 2021-08-30 20:00 | PC.NURSE ---
1615: PARAPROFESSIONAL EDUCATION ASSISTANT notified of patient removing oxygen, and heart monitor, attempting to get out of bed. Pt labored respirations in the 60's, O2 sating in the 70's (when sensor able to rock picker reading), using accessory muscles, abdominal breathing, grunting, and restless. Pt placed on 15L HFNC and 15L NRB. PARAPROFESSIONAL EDUCATION ASSISTANT stated I'll be over to see the patient.
[2021-08-30 20:21] LABS: Platelet Estimate Adequate (Adequate)
[2021-08-30 20:22] LABS: Burr Cells 3+ (NORMAL)
[2021-08-30 20:38] LABS: Alveolar/Arterial O2 Gradient 622.7 mmHg; Base Excess ABG -22.8 mEq/l (+/-2.0); Fractional Inspired Oxygen 100 %; HCO3 ABG 8.5 mEq/l (22.0-26.0); Oxygen Content ABG 10.4 %vol (16.0-22.0); PCO2 ABG 40.2 mmHg (35.0-45.0); PO2 ABG 50.1 mmHg (80.0-100.0); Total Hemoglobin 10.3 g/dL (12.0-18.0)
[2021-08-30 20:45] LABS: Oxygen Saturation ABG 62.1 % (95.0-100.0); pH ABG 6.942 (7.350-7.450)
[2021-08-30 20:46] LABS: Arterial Blood Gas PEEP 10 cmH2O; Arterial Blood Gas Tidal Volume 400 ml; Arterial Blood Gas Vent Mode CMV; Arterial Blood Gas Ventilator rate 24 /MIN; Device VENTILATOR; Modified Allen's Test Pass; Oxyhemoglobin 71.3 % THb (90.0-100.0); Site Drawn RIGHT RADIAL
--- NOTE | 2021-08-30 21:30 | P.OP_ITS ---
Procedures Intubation Intubation Date: 08/30/21 Intubation Time: 18:30 Consent: Patient emergently intubated . She was unresponsive Sedative: none Laryngoscope: fiber optic video scope ET tube size: 7.5 Tube secured depth (cm): 26 Tube secured location: teeth Tube placement confirmation: visualized tube passing through cords and confirmation by capnometry Patient tolerated procedure: well Additional comments: I was called up to IMU bed 232 for patient minimal responsive and they were unable to get oxygen saturation. On arrival patient appeared cyanotic and BLACK TOP MACHINE OPERATOR bagging patient. Unable to feel pulse so code blue called and CPR started by staff. PAtient was given epi x 1. I was able to intubate with 1 attempt using glide scope. no sedation or RSI given for intubation. Bilateral breath sounds. On review of xray at bedside staff informed to pull ETT by 3 cm.
[2021-08-30] MEDS: SODIUM BICARBONATE 8.4% 50 MEQ/50 ML SYRINGE 200 MEQ IV PUSH (22:23)
[2021-08-30] MEDS: MINERAL OIL/WHITE PETROLATUM OINTMENT 1 APPLIC EACH EYE (22:23)
[2021-08-30] MEDS: VASOPRESSIN INJ 100 UNITS in DEXTROSE 5% 95 ML IV CONT (22:24)
[2021-08-30] MEDS: CENTRAL LINE FLUSH 10 ML IV PUSH (22:25)
[2021-08-30 23:30] LABS: Basophils Absolute Auto 0.2 K/mm3 (0.0-0.1); Basophils Percent Auto 0.4 % (0.2-1.2); Hematocrit 33.4 % (37.0-47.0); Hemoglobin 11.2 g/dL (12.0-15.0); Immature Granulocyte Absolute 2.17 K/mm3 (0.00-0.031); Immature Granulocyte Percent A 5.8 % (0-0.5); Lymphocytes Absolute Auto 3.27 K/mm3 (0.9-3.2); Lymphocytes Percent Auto 8.8 % (18.3-44.2); Mean Corpuscular HGB Conc 33.5 g/dl (32-36); Mean Corpuscular Hemoglobin 29.7 pg (26-34); Mean Corpuscular Volume 88.6 fl (80-100); Mean Platelet Volume 10.7 fl (7.4-10.4); Monocytes Absolute Auto 1.7 K/mm3 (0.1-0.6); Monocytes Percent Auto 4.6 % (2.6-8.5); Neutrophils Percent Auto 80.4 % (45.5-73.1); Nucleated Red Blood Cells Perc 0.1 % (0.0-0.2); Platelet Count Result 413 k/mm3 (150-375); Red Blood Count 3.77 M/mm3 (4.2-5.4); Red Cell Distribution Width 14.7 % (11.5-14.5); White Blood Count 37.3 K/mm3 (4.5-10.0)
[2021-08-30] MEDS: FENTANYL 2,500MCG/NS250ML(*CRX 2,500 MCG/250 ML BAG 10 MCG IV CONT (23:30)
[2021-08-31] VITALS (89 sets, daily range): BP systolic 51–200; BP diastolic 24–130; PULSE 34–135; RESP 24–45; TEMP 36.1–37.2; O2SAT 91–100
[2021-08-31 00:18] LABS: Lactic Acid Reflex 6.8 mmol/L (0.7-2.1)
[2021-08-31] MEDS: SODIUM BICARBONATE 8.4% 150 MEQ in DEXTROSE 5% 1,000 ML 950 ML 100 MEQ IV CONT (00:30)
[2021-08-31] MEDS: NOREPINEPHRINE 8 MG/D5W 250 ML 8 MG/250 ML BAG 56.25 MG IV CONT (00:45)
[2021-08-31 02:28] LABS: Reflex Lactic Acid Yes or No Add Lactic
[2021-08-31 04:31] LABS: INR 2.3; Prothrombin Time 24.5 Seconds (11.1-14.7)
[2021-08-31 04:35] LABS: Glucose 317 mg/dL (65-110)
[2021-08-31 04:55] LABS: Albumin Level 2.6 g/dL (3.5-5.1); Alkaline Phosphatase 52 U/L (38-126); Anion Gap 14 mmol/L (8-16); Bilirubin,Total 0.5 mg/dL (0.2-1.3); Blood Urea Nitrogen 40 mg/dL (7-17); CRP 1.5 mg/dL (<1.0); Calcium 6.2 mg/dL (8.4-10.2); Carbon Dioxide 21 mmol/L (22-30); Chloride 96 mmol/L (98-107); Estimated CRCL calculation 30 ml/min; Estimated Glomerular Filt Rate 22; Potassium 4.4 mmol/L (3.4-5.0); Sodium 131 mmol/L (137-145)
[2021-08-31 04:57] LABS: Alanine Aminotransferase 788 U/L (4-35); Aspartate Amino Transferase 1080 U/L (14-36)
[2021-08-31] MEDS: NOREPINEPHRINE 8 MG/D5W 250 ML 8 MG/250 ML BAG 28.13 MG IV CONT (05:41)
[2021-08-31] MEDS: FENTANYL 2,500MCG/NS250ML(*CRX 2,500 MCG/250 ML BAG 15 MCG IV CONT (05:42)
[2021-08-31 05:44] LABS: Alveolar/Arterial O2 Gradient 403.4 mmHg; Base Excess ABG -2.8 mEq/l (+/-2.0); Carboxyhemoglobin 0.1 % THb (0-2.0); Device VENTILATOR; Fractional Inspired Oxygen 100 %; HCO3 ABG 21.1 mEq/l (22.0-26.0); Methemoglobin ABG 0.5 %THb (0-1.5); Modified Allen's Test Pass; Oxygen Content ABG 12.5 %vol (16.0-22.0); Oxygen Saturation ABG 99.7 % (95.0-100.0); Oxyhemoglobin 97.4 % THb (90.0-100.0); PCO2 ABG 32.6 mmHg (35.0-45.0); PO2 FiO2 Ratio Arterial Blood 2.77 %; Site Drawn RIGHT RADIAL; Total Hemoglobin 8.6 g/dL (12.0-18.0); pH ABG 7.428 (7.350-7.450)
[2021-08-31 05:45] LABS: Arterial Blood Gas PEEP 10 cmH2O; Arterial Blood Gas Tidal Volume 400 ml; Arterial Blood Gas Vent Mode CMV; Arterial Blood Gas Ventilator rate 24 /MIN
[2021-08-31 06:20] LABS: Lactic Acid 4.4 mmol/L (0.7-2.1)
[2021-08-31] MEDS: CENTRAL LINE FLUSH 10 ML IV PUSH ×3 (06:39→22:08)
[2021-08-31] MEDS: HYDROCORTISONE SODIUM SUCCINATE 100 MG/2 ML VIAL IV PUSH ×3 (06:39→22:08)
[2021-08-31 07:19] LABS: Partial Thromboplastin Time 35.7 SECONDS (22.3-36.8)
[2021-08-31] MEDS: MINERAL OIL/WHITE PETROLATUM OINTMENT 1 APPLIC EACH EYE ×2 (09:05→20:40)
[2021-08-31] MEDS: SERTRALINE HCL 50 MG TABLET 100 MG PO (09:17)
[2021-08-31] MEDS: THERAPEUTIC MULTIVITAMINS/MINERALS TAB (*BKC) 1 TABLET PO (09:17)
--- NOTE | 2021-08-31 09:20 | WPDCNINT ---
Assessment and Plan Assessment and plan (1) Anemia associated with acute blood loss: Code(s): D62 - Acute posthemorrhagic anemia Status: Acute Assessment and Plan: Continue serial hemoglobin checks every 4 hours Patient has received 4 units of PRBC, 2 units of FFP, 1 unit of cryo Most recent hemoglobin is 7.3 INR is 2.2 and fibrinogen is 167. I will transfuse 2 units of PRBC and 4 more units of FFP Will also give vitamin K Hospital does not have andexanet Kcentra not given due to high risk of new or worsening of her current thrombosis as patient already has PE and and also has COVID-19. Also her last dose of Eliquis was more than [address] 08/30 IMPRESSION: 1. Large hematoma in right pelvis extending into the peritoneum with two foci of active extravasation of contrast. 2. Hematomas in the rectus abdominis muscles, right worse than left. 3. Splenic infarcts. Small volume of perisplenic ascites. 4. Diffuse lung disease, consistent with COVID-19 pneumonia. Ideally I would like to transfer patient to a facility where patient can get angiogram and possible embolization if ongoing bleed but due to current COVID 19 pandemic there are no ICU beds available. I have call [facility] including [facility] and they do not have any ICU bed available in any of the 6 hospitals. I have given them patient information and they will call me if a bed opens up. Hospitalist provider will also call [facility] to see if they have any bed available General surgery has been consulted. At this point the goal is is to correct coagulopathy, transfuse blood products to maintain adequate hemoglobin level and hopefully the bleeding will stop (2) Hemorrhagic shock: Code(s): R57.8 - Other shock Status: Acute Assessment and Plan: Secondary to blood loss Continue transfusion as above Currently on Levophed Adrnell-Synephrine and vasopressin Titrate vasopressors Patient has received more than 6 L of fluid yesterday. Continue cautious maintenance IV fluids as patient is going to receive additional blood products (3) Sepsis: Code(s): A41.9 - Sepsis, unspecified organism Status: Acute Assessment and Plan: Urine blood cultures have been sent Patient is on empiric vancomycin and cefepime (4) Pulmonary embolism: Code(s): I26.99 - Other pulmonary embolism without acute cor pulmonale Status: Acute Assessment and Plan: Currently off of anticoagulation secondary to hemorrhagic shock. Not a candidate for anticoagulation at this time Checked lower extremity DVT If positive patient may need a IVC filter (5) JERRY (acute kidney injury): Code(s): N17.9 - Acute kidney failure, unspecified Status: Acute Assessment and Plan: Likely secondary to shock Monitor urine output electrolytes and creatinine CT done yesterday did not show any hydronephrosis (6) Abnormal LFTs: Code(s): R79.89 - Other specified abnormal findings of blood chemistry Status: Acute Assessment and Plan: Likely shock liver Monitor levels at this time Hold statin (7) Acute respiratory failure with hypoxia: Code(s): J96.01 - Acute respiratory failure with hypoxia Status: Acute Assessment and Plan: Acute Respiratory failure secondary to cardiac arrest, COVID-19 pneumonia pulmonary emboli Continue full mechanical ventilation support to prevent hypoxemia/hypercarbia and end organ damage. ABG and PCXR reviewed and will repeat in am. Decrease PEEP to 5 and FiO2 is down at 50% (8) Pneumonia due to 2019-nCoV: Code(s): U07.1 - COVID-19; J12.82 - Pneumonia due to coronavirus disease 2019 Status: Acute Assessment and Plan: ARS-CoV-2 PCR positive Patient is in Airborne, Droplet and Contact Isolation Patient was on dexamethasone which has been changed to stress dose hydrocortisone at this time due to shock Convalscent plasma therapy for COVID-19 adminis
[2021-08-31 09:22] LABS: Hematocrit 21.8 % (37.0-47.0); Hemoglobin 7.3 g/dL (12.0-15.0); Mean Corpuscular HGB Conc 33.5 g/dl (32-36); Mean Corpuscular Hemoglobin 28.7 pg (26-34); Mean Corpuscular Volume 85.8 fl (80-100); Mean Platelet Volume 10.8 fl (7.4-10.4); Platelet Count Result 358 k/mm3 (150-375); Red Blood Count 2.54 M/mm3 (4.2-5.4); Red Cell Distribution Width 15.7 % (11.5-14.5); White Blood Count 28.4 K/mm3 (4.5-10.0)
[2021-08-31 09:28] LABS: INR 2.2; Prothrombin Time 23.5 Seconds (11.1-14.7)
[2021-08-31] MEDS: CALCIUM CHLOR 1,000MG/100ML NS 1,000 MG/100 ML BAG 100 MG IVPB (09:28)
[2021-08-31 09:29] LABS: Partial Thromboplastin Time 35.8 SECONDS (22.3-36.8)
[2021-08-31 09:35] LABS: Fibrinogen 167 mg/dl (215-510)
--- NOTE | 2021-08-31 09:54 | PM.CNGS ---
Assessment and Plan Assessment and plan (1) Rectus sheath hematoma: Code(s): S30.1XXA - Contusion of abdominal wall, initial encounter Status: Acute Assessment and Plan: CT chest, abdomen, and pelvis reviewed with the Radiologist today. She has a large rectus sheath hematoma mostly on the right that we believe extends into the pelvic hematoma from one source of bleeding. Her hemoglobin dropped again this morning and she continues to be hypotensive with increasing needs of vasopressor support. It is a concern that she is continuing to actively bleed at this time. The indicated treatment for this would be angioembolization, which we do not have the capability of implementing at this facility. We would recommend that the patient be transferred to a tertiary care facility that could offer this treatment. We have discussed this with the Hospitalist, who has attempted to call multiple facilities for transfer. Unfortunately, there is no facility that will accept a transfer at this time. Therefore, while we await the ability to transfer the patient, we would recommend to continue to closely monitor and treat her coagulopathy with transfusions as needed. Continue to hold her anticoagulation. No plan for surgical intervention at this time. Thank you for allowing us to see the patient in consultation and we will continue to follow along with you. (2) Hemorrhagic shock: Code(s): R57.8 - Other shock Status: Acute Assessment and Plan: Secondary to a likely spontaneous bleed causing a large rectus sheath hematoma extending into the pelvis. Currently on three different vasopressor agents and intubated. Continue to treat coagulopathy and volume depletion. See plan above. (3) Anemia associated with acute blood loss: Code(s): D62 - Acute posthemorrhagic anemia Status: Acute Assessment and Plan: Related to the rectus sheath hematoma mentioned above. Continue to monitor H/H and transfuse as needed. See plan above. (4) Leukocytosis: Code(s): D72.829 - Elevated white blood cell count, unspecified Status: Acute Assessment and Plan: WBC 37,300 yesterday and down to 28,400 today. Started on IV Cefepime yesterday. On IV dexamethasone for 8 days, stopped yesterday. Other than the COVID pneumonia, no other infectious sources seen. Radiologist does not see any evidence of superimposed bacterial pneumonia from Chest CT yesterday. Trend labs. (5) Pulmonary embolism: Code(s): I26.99 - Other pulmonary embolism without acute cor pulmonale Status: Acute Assessment and Plan: Hold Eliquis. (6) JERRY (acute kidney injury): Code(s): N17.9 - Acute kidney failure, unspecified Status: Acute (7) Acute respiratory failure with hypoxia: Code(s): J96.01 - Acute respiratory failure with hypoxia Status: Acute Assessment and Plan: On mechanical ventilator in IMU. Intubated last night. Data Entry Machine Operator following. Wean as tolerated. (8) Pneumonia due to 2019-nCoV: Code(s): U07.1 - COVID-19; J12.82 - Pneumonia due to coronavirus disease 2019 Status: Acute Assessment and Plan: Continue medical management. (9) BMI 35.0-35.9,adult: Code(s): Z68.35 - Body mass index [BMI] 35.0-35.9, adult Status: Acute (10) Splenic infarct: Code(s): D73.5 - Infarction of spleen Status: Acute Assessment and Plan: Noted on CT scan yesterday. No indication for surgery. Anticoagulation being held for hematoma. Additional Plan I have discussed the patient's case and plan of care with Dr. Cain. History of Present Illness Consult details Consult date: 08/31/21 Reason for consult: other (Rectus sheath hematoma) Requesting physician: Michel Valentine APN-C Narrative: This is a 55-year-old female with a history of depression and hyper lax Ruthy, who presented to the emergency department on 08/21/2021 with worsening shortness of breath after webber
[2021-08-31 10:34] LABS: Albumin Level 2.3 g/dL (3.5-5.1); Alkaline Phosphatase 50 U/L (38-126); Anion Gap 8 mmol/L (8-16); Bilirubin,Total 0.4 mg/dL (0.2-1.3); Blood Urea Nitrogen 41 mg/dL (7-17); Calcium 5.7 mg/dL (8.4-10.2); Carbon Dioxide 26 mmol/L (22-30); Chloride 92 mmol/L (98-107); Estimated CRCL calculation 28 ml/min; Estimated Glomerular Filt Rate 20; Glucose 412 mg/dL (65-110); Potassium 4.1 mmol/L (3.4-5.0); Sodium 126 mmol/L (137-145)
[2021-08-31] MEDS: INSULIN ASPART (*BKC) 100 UNITS/ML SUB-Q ×2 (10:55→13:32)
[2021-08-31] MEDS: PHYTONADIONE INJ 10 MG/ML AMP IM (10:56)
[2021-08-31 11:08] LABS: Glucose Point of Care 253 mg/dl (65-105)
[2021-08-31 11:19] LABS: Alanine Aminotransferase 805 U/L (4-35); Aspartate Amino Transferase 1175 U/L (14-36)
[2021-08-31] MEDS: SODIUM CHLORIDE 0.9% IV 250 ML 30 ML IV CONT ×2 (11:43→17:58)
[2021-08-31 12:21] LABS: Ferritin > 2000.00 ng/mL (11.1-264)
[2021-08-31] MEDS: NOREPINEPHRINE 8 MG/D5W 250 ML 8 MG/250 ML BAG 46.88 MG IV CONT ×2 (12:38→23:51)
[2021-08-31 12:59] LABS: Glucose Point of Care 236 mg/dl (65-105)
--- NOTE | 2021-08-31 15:06 | PM.IMPN ---
Progress Note: A&P Assessment and Plan (1) Anemia associated with acute blood loss: Code(s): D62 - Acute posthemorrhagic anemia Status: Acute Assessment and Plan: Continue serial hemoglobin checks every 4 hours Patient has received 4 units of PRBC, 2 units of FFP, 1 unit of cryo Most recent hemoglobin is 7.3 INR is 2.2 and fibrinogen is 167. I will transfuse 2 units of PRBC and 4 more units of FFP Will also give vitamin K Hospital does not have andexanet Kcentra not given due to high risk of new or worsening of her current thrombosis as patient already has PE and and also has COVID-19. Also her last dose of Eliquis was more than 24 hours ago GS on the case as well Transfer initiated CT 08/30 IMPRESSION: 1. Large hematoma in right pelvis extending into the peritoneum with two foci of active extravasation of contrast. 2. Hematomas in the rectus abdominis muscles, right worse than left. 3. Splenic infarcts. Small volume of perisplenic ascites. 4. Diffuse lung disease, consistent with COVID-19 pneumonia. (2) Hemorrhagic shock: Code(s): R57.8 - Other shock Status: Acute Assessment and Plan: Secondary to blood loss Continue transfusion as above Currently on Levophed Darnell-Synephrine and vasopressin Titrate vasopressors Patient has received more than 6 L of fluid yesterday. Continue cautious maintenance IV fluids as patient is going to receive additional blood products (3) Sepsis: Code(s): A41.9 - Sepsis, unspecified organism Status: Acute Assessment and Plan: Urine blood cultures have been sent Patient is on empiric vancomycin and cefepime (4) Pulmonary embolism: Code(s): I26.99 - Other pulmonary embolism without acute cor pulmonale Status: Acute Assessment and Plan: No PE noted on the CT, anticoagulation stopped yesterday Currently off of anticoagulation secondary to hemorrhagic shock. Not a candidate for anticoagulation at this time Checked lower extremity DVT If positive patient may need a IVC filter (5) JERRY (acute kidney injury): Code(s): N17.9 - Acute kidney failure, unspecified Status: Acute Assessment and Plan: Likely secondary to shock, or could be from contrast media continue with blood products, trend labs Monitor urine output electrolytes and creatinine CT done yesterday did not show any hydronephrosis (6) Abnormal LFTs: Code(s): R79.89 - Other specified abnormal findings of blood chemistry Status: Acute Assessment and Plan: Likely shock liver Monitor levels at this time Hold statin (7) Acute respiratory failure with hypoxia: Code(s): J96.01 - Acute respiratory failure with hypoxia Status: Acute Assessment and Plan: Acute Respiratory failure secondary to cardiac arrest, COVID-19 pneumonia pulmonary emboli Continue full mechanical ventilation support to prevent hypoxemia/hypercarbia and end organ damage. ABG and PCXR reviewed and will repeat in am. Decrease PEEP to 5 and FiO2 is down at 50% (8) Pneumonia due to 2019-nCoV: Code(s): U07.1 - COVID-19; J12.82 - Pneumonia due to coronavirus disease 2019 Status: Acute Assessment and Plan: ARS-CoV-2 PCR positive Patient is in Airborne, Droplet and Contact Isolation Patient was on dexamethasone which has been changed to stress dose hydrocortisone at this time due to shock Convalscent plasma therapy for COVID-19 administered on 08/22 Patient received 9 doses of remdesivir and now due to high ALT and decreased renal function remdesivir has been discontinued Time Spent With Patient Time with patient: Greater than 35 minutes Subjective Date/time seen: 08/31/21 15:06 Interval history: Date/Time: 08/21/21 20:03 Narrative: Patient is a 55-year-old female with past medical history significant for depression, generalized anxiety. Patient presented to emergency room due to worsening shortness of breath and persistent dry c
[2021-08-31 18:15] LABS: Glucose Point of Care 179 mg/dl (65-105)
[2021-08-31] MEDS: FENTANYL 2,500MCG/NS250ML(*CRX 2,500 MCG/250 ML BAG 20 MCG IV CONT (18:51)
[2021-08-31] MEDS: NOREPINEPHRINE 8 MG/D5W 250 ML 8 MG/250 ML BAG 48.75 MG IV CONT (20:47)
[2021-08-31] MEDS: MIDAZOLAM 100MG/NS 100ML(*CRX) 100 MG/100 ML BAG 6 MG IV CONT (20:49)
[2021-08-31 22:24] LABS: Glucose Point of Care 194 mg/dl (65-105)
[2021-09-01] VITALS (55 sets, daily range): BP systolic 66–193; BP diastolic 36–111; PULSE 61–151; RESP 23–38; TEMP 36.1–37.1; O2SAT 92–98; BMI 43.4
[2021-09-01 00:34] LABS: Glucose Point of Care 174 mg/dl (65-105)
[2021-09-01 04:25] LABS: Alveolar/Arterial O2 Gradient 180.7 mmHg; Base Excess ABG -2.5 mEq/l (+/-2.0); Carboxyhemoglobin 0.2 % THb (0-2.0); Fractional Inspired Oxygen 45 %; HCO3 ABG 20.9 mEq/l (22.0-26.0); Methemoglobin ABG 0.2 %THb (0-1.5); Oxygen Content ABG 14.7 %vol (16.0-22.0); Oxyhemoglobin 96.4 % THb (90.0-100.0); PCO2 ABG 31.3 mmHg (35.0-45.0); PO2 ABG 104.6 mmHg (80.0-100.0); PO2 FiO2 Ratio Arterial Blood 2.32 %; Reduced Hemoglobin 3.2 %THb (0-5.0); Total Hemoglobin 10.7 g/dL (12.0-18.0); pH ABG 7.442 (7.350-7.450)
[2021-09-01 04:29] LABS: Arterial Blood Gas Ventilator rate 24 /MIN; Device VENTILATOR; Modified Allen's Test Pass; Site Drawn LEFT RADIAL
[2021-09-01 04:30] LABS: Arterial Blood Gas PEEP 5 cmH2O; Arterial Blood Gas Tidal Volume 400 ml; Arterial Blood Gas Vent Mode CMV
[2021-09-01 05:15] LABS: Hematocrit 22.8 % (37.0-47.0); Hemoglobin 7.9 g/dL (12.0-15.0); Immature Granulocyte Absolute 0.22 K/mm3 (0.00-0.031); Immature Granulocyte Percent A 1.1 % (0-0.5); Lymphocytes Absolute Auto 2.16 K/mm3 (0.9-3.2); Lymphocytes Percent Auto 10.5 % (18.3-44.2); Mean Corpuscular HGB Conc 34.6 g/dl (32-36); Mean Corpuscular Hemoglobin 29.3 pg (26-34); Mean Corpuscular Volume 84.4 fl (80-100); Mean Platelet Volume 10.5 fl (7.4-10.4); Monocytes Absolute Auto 1.6 K/mm3 (0.1-0.6); Neutrophils Absolute Auto 16.5 K/mm3 (1.3-6.7); Neutrophils Percent Auto 80.4 % (45.5-73.1); Nucleated Red Blood Cells Perc 0.1 % (0.0-0.2); Platelet Count Result 222 k/mm3 (150-375); Red Cell Distribution Width 15.1 % (11.5-14.5); White Blood Count 20.6 K/mm3 (4.5-10.0)
[2021-09-01] MEDS: HYDROCORTISONE SODIUM SUCCINATE 100 MG/2 ML VIAL IV PUSH ×3 (05:21→21:58)
[2021-09-01] MEDS: CENTRAL LINE FLUSH 10 ML IV PUSH ×3 (05:22→21:59)
[2021-09-01 05:25] LABS: INR 1.6; Partial Thromboplastin Time 31.2 SECONDS (22.3-36.8); Prothrombin Time 18.7 Seconds (11.1-14.7)
[2021-09-01 05:26] LABS: Fibrinogen 182 mg/dl (215-510)
[2021-09-01] MEDS: NOREPINEPHRINE 8 MG/D5W 250 ML 8 MG/250 ML BAG 37.5 MG IV CONT ×3 (05:27→19:02)
[2021-09-01] MEDS: VASOPRESSIN INJ 100 UNITS in DEXTROSE 5% 95 ML IV CONT (05:44)
[2021-09-01 06:12] LABS: Alanine Aminotransferase 737 U/L (4-35); Albumin Level 3.1 g/dL (3.5-5.1); Alkaline Phosphatase 61 U/L (38-126); Anion Gap 14 mmol/L (8-16); Bilirubin,Total 0.7 mg/dL (0.2-1.3); Blood Urea Nitrogen 51 mg/dL (7-17); Calcium 7.1 mg/dL (8.4-10.2); Carbon Dioxide 23 mmol/L (22-30); Chloride 92 mmol/L (98-107); Estimated CRCL calculation 18 ml/min; Estimated Glomerular Filt Rate 12; Glucose 202 mg/dL (65-110); Magnesium 1.6 mg/dL (1.6-2.3); Sodium 129 mmol/L (137-145)
[2021-09-01 06:29] LABS: Glucose Point of Care 172 mg/dl (65-105)
[2021-09-01 06:38] LABS: Aspartate Amino Transferase 960 U/L (14-36)
[2021-09-01 07:18] LABS: Anisocytosis 1+ (NORMAL); Hypochromasia 1+ (NORMAL); Ovalocytes 1+ (NORMAL); Platelet Estimate Adequate (Adequate)
[2021-09-01 08:08] LABS: Glucose Point of Care 166 mg/dl (65-105)
[2021-09-01] MEDS: MINERAL OIL/WHITE PETROLATUM OINTMENT 1 APPLIC EACH EYE ×2 (08:11→21:56)
[2021-09-01] MEDS: LIDOCAINE 5% PATCH 1 PATCH TRANSDERM ×2 (08:11→18:34)
[2021-09-01 09:08] LABS: Creatine Kinase 162 U/L (30-135)
[2021-09-01] MEDS: FENTANYL 2,500MCG/NS250ML(*CRX 2,500 MCG/250 ML BAG 10 MCG IV CONT (09:23)
[2021-09-01] MEDS: MAGNESIUM SULF 1 GM/D5W 100 ML 1 GM/100 ML BAG IVPB (09:30)
[2021-09-01 09:38] LABS: Hematocrit 21.4 % (37.0-47.0); Hemoglobin 7.2 g/dL (12.0-15.0)
--- NOTE | 2021-09-01 09:40 | WPDINTPN ---
Progress Note: A&P Assessment and Plan (1) Anemia associated with acute blood loss: Code(s): D62 - Acute posthemorrhagic anemia Status: Acute Assessment and Plan: Continue serial hemoglobin checks every 4 hours Patient initially received 4 units of PRBC, 2 units of FFP, 1 unit of cryo. 09/01 2 units of PRBC and 4 units of FFP were given Patient was also given vitamin K Hospital does not have andexanet Kcentra not given due to high risk of new or worsening of her current thrombosis as patient already has PE and and also has COVID-19. Also her last dose of Eliquis was more than 24 hours ago Most recent hemoglobin is 7.9 INR is 1.6 and fibrinogen is 182. CT 08/30 IMPRESSION: 1. Large hematoma in right pelvis extending into the peritoneum with two foci of active extravasation of contrast. 2. Hematomas in the rectus abdominis muscles, right worse than left. 3. Splenic infarcts. Small volume of perisplenic ascites. 4. Diffuse lung disease, consistent with COVID-19 pneumonia. Yesterday I wanted to to transfer patient to a facility where patient can get angiogram and possible embolization if ongoing bleed but due to current COVID 19 pandemic there are no ICU beds available. I called [facility] including [facility] and they did not have any ICU bed available in any of the 6 hospitals. I gave them patient information and they will call me if a bed opens up. Hospitalist provider called [facility], [facility] to see if they have any bed available General surgery was consulted At this point the goal is is to correct coagulopathy, transfuse blood products to maintain adequate hemoglobin level and hopefully the bleeding will stop (2) Hemorrhagic shock: Code(s): R57.8 - Other shock Status: Acute Assessment and Plan: Secondary to blood loss Continue transfusion as above Currently on Levophed and vasopressin Darnell-Synephrine is off Titrate vasopressors Patient has received significant amount of volume. Continue cautious maintenance IV fluids (3) Sepsis: Code(s): A41.9 - Sepsis, unspecified organism Status: Acute Assessment and Plan: Urine blood cultures have been sent Patient is on empiric vancomycin and cefepime Will hold vancomycin if cultures remain negative due to impaired renal function (4) Pulmonary embolism: Code(s): I26.99 - Other pulmonary embolism without acute cor pulmonale Status: Acute Assessment and Plan: Currently off of anticoagulation secondary to hemorrhagic shock. Not a candidate for anticoagulation at this time Checked lower extremity Dopplers for DVT and were negative (5) JERRY (acute kidney injury): Code(s): N17.9 - Acute kidney failure, unspecified Status: Acute Assessment and Plan: Likely secondary to shock Monitor urine output electrolytes and creatinine CT done yesterday did not show any hydronephrosis Nephrology consult Urine output remains poor May need hemodialysis if continues to worsen or does not improve (6) Abnormal LFTs: Code(s): R79.89 - Other specified abnormal findings of blood chemistry Status: Acute Assessment and Plan: Likely shock liver Monitor levels at this time Hold statin (7) Acute respiratory failure with hypoxia: Code(s): J96.01 - Acute respiratory failure with hypoxia Status: Acute Assessment and Plan: Acute Respiratory failure secondary to cardiac arrest, COVID-19 pneumonia pulmonary emboli Continue full mechanical ventilation support to prevent hypoxemia/hypercarbia and end organ damage. ABG and PCXR reviewed and will repeat in am. Decrease PEEP to 5 and FiO2 is down at 45% Will plan to wean once hemodynamically stable and blood counts are stable (8) Pneumonia due to 2019-nCoV: Code(s): U07.1 - COVID-19; J12.82 - Pneumonia due to coronavirus disease 2019 Status: Acute Assessment and Plan: ARS-CoV-2 PCR positive P
[2021-09-01 11:39] LABS: Glucose Point of Care 153 mg/dl (65-105)
--- NOTE | 2021-09-01 11:44 | PM.CNNEP ---
Assessment and Plan Assessment and plan (1) JERRY (acute kidney injury): Code(s): N17.9 - Acute kidney failure, unspecified Status: Acute Assessment and Plan: Arielle has acute kidney injury. Her creatinine is on the rise. Urine output is minimal. Most likely this is due to the hemorrhagic shock She also received contrast for the CTA which may be playing a role. Will get a renal ultrasound urine electrolytes and his CPK to make sure nothing else is going on. She is not getting IV fluids. She received 10L 2 days ago, and 4L yesterday and is positive today as well with her obligate IV fluids. I agree with not giving her more hydration. She is hypotensive but her blood pressure is reasonably good with norepinephrine and vasopressin. It is possible she might need dialysis going forward but she does not needed now. Since she had renal function that was normal before this, if she gets better hemodynamically then possibly she could turn around before needing dialysis. Discussed with Dr. Mclaughlin (2) Anemia associated with acute blood loss: Code(s): D62 - Acute posthemorrhagic anemia Status: Acute Assessment and Plan: The patient has bleeding into a hematoma. Hemoglobin was quite low yesterday. It is improved today. She is getting frequent checks. Anticoagulation has been halted (3) Hemorrhagic shock: Code(s): R57.8 - Other shock Status: Acute Assessment and Plan: Blood pressure is low. She is on pressors (4) Pulmonary embolism: Code(s): I26.99 - Other pulmonary embolism without acute cor pulmonale Status: Acute Assessment and Plan: Diagnosed by CTA 2 days ago (5) Sepsis: Code(s): A41.9 - Sepsis, unspecified organism Status: Acute Assessment and Plan: Blood cultures are obtained and getting antibiotics in case (6) Pneumonia due to 2019-nCoV: Code(s): U07.1 - COVID-19; J12.82 - Pneumonia due to coronavirus disease 2019 Status: Acute Assessment and Plan: Getting supportive care for this History of Present Illness Reason for Consult Consult date: 09/01/21 Chief Complaint Chief complaint: Covid pneumonia/hypoxia History of Present Illness Narrative: Arielle is an unfortunate 55-year-old lady who has multiple medical problems including obesity, depression, anxiety. The patient came to the ER with shortness of breath a few days before admission. She also had a cough. She lives at home with her and children in every but he was positive for COVID she was swabbed and was positive as well. She was sent home then came back on the because her breathing was worse. Her oxygenation was low. She was given supplemental oxygen and she was admitted. During hospital stay she was treated per COVID protocol. She was also given IV antibiotics. On the she developed chest pain. She went for chest CTA and was found to have a pulmonary embolism. She was given anticoagulants. Yesterday the patient had low blood pressure. Hemoglobin was low. Blood pressure is low as well. She had another CT scan which showed an Abdominal hematoma. Anticoagulants were discontinued and patient was transfused and given IV fluids. Her oxygenation worsened and so she was intubated moved to the ICU. Normally her creatinine runs around 0.5-0.7. On the her creatinine was 1.2 then yesterday 2.3 and today 4.0. She is not making much urine. She is hypotensive and on 2 pressors. She is on the ventilator and sedated and cannot give a history. [facility] Past Medical History Medical History BMI 35.0-35.9,adult Chest wall deformity Dysphagia Elevated glucose Elevated liver enzymes Epigastric pain Obesity Onychomycosis Plantar fasciitis of left foot Surgical History Surgical History H/O arthroscopy of knee 20
[2021-09-01 13:13] LABS: Hematocrit 20.2 % (37.0-47.0); Hemoglobin 6.9 g/dL (12.0-15.0)
[2021-09-01 13:23] LABS: Creatine Kinase 168 U/L (30-135)
--- NOTE | 2021-09-01 14:27 | P.PNCROSS_ITS ---
Event Note Event Note Event Note: Patient's repeat hemoglobin is 6.9 which has slowly dropped from 7.9 this morning. Patient may have ongoing continuous oozing. I have discussed with Dr. Cain with General surgery and he does not think there is any surgical option at this point. [facility] called [facility] and [facility] transfer lines and none of them have any bed available at this time. She is on wait list [facility] and other systems are not taking patients on wait list. I have inquired about patient going for procedure and coming back but again without any success. I ordered 2 additional units of PRBC at this time. I will repeat coags with next Hb check. I will give pt DDAVP 0.3 mcg/kg for to counter antiplatelet effect due to her renal failure and tranexamic acid 10 milligram/kg IVPB. Doses were discussed and clarified with pharmacy
--- NOTE | 2021-09-01 14:32 | PM.PNGS ---
Progress Note: A&P Assessment and Plan (1) Hemorrhagic shock: Code(s): R57.8 - Other shock Status: Acute Assessment and Plan: remains on vasopressor agents with Levophed and vasopressin. H&H continues to drift down. Patient to receive 2 more units packed cells today. INR has improved to 1.6. 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 Still unable to transfer for angiography and possible angioembolism. (2) Rectus sheath hematoma: Qualifiers: Encounter type: subsequent encounter Qualified Code(s): S30.1XXD - Contusion of abdominal wall, subsequent encounter Code(s): S30.1XXA - Contusion of abdominal wall, initial encounter Status: Acute Assessment and Plan: Continue to reverse anticoagulation and support with transfusion. Hopefully bleeding will subside. Open surgery unlikely to stop the bleeding and could well facilitate more bleeding. Surrounding facilities experiencing extremely high volume in patient care and unable to accept patient for angiography and embolization of bleeding vessel. (3) JERRY (acute kidney injury): Code(s): N17.9 - Acute kidney failure, unspecified Status: Acute Assessment and Plan: Creatinine up to 4, oliguric. Nephrology has been consulted. If does not reverse, may need dialysis. (4) Acute respiratory failure with hypoxia: Code(s): J96.01 - Acute respiratory failure with hypoxia Status: Acute Assessment and Plan: Remains on ventilator today. (5) Pneumonia due to 2019-nCoV: Code(s): U07.1 - COVID-19; J12.82 - Pneumonia due to coronavirus disease 2019 Status: Acute Assessment and Plan: Stable infiltrates on chest x-ray, stable on ventilator (6) Pulmonary embolism: Qualifiers: Chronicity: acute Acute cor pulmonale presence: without acute cor pulmonale Pulmonary embolism type: unspecified Qualified Code(s): I26.99 - Other pulmonary embolism without acute cor pulmonale Code(s): I26.99 - Other pulmonary embolism without acute cor pulmonale Status: Acute Assessment and Plan: anticoagulation held due to hemorrhagic shock. Venous Dopplers negative. (7) Anemia associated with acute blood loss: Code(s): D62 - Acute posthemorrhagic anemia Status: Acute Assessment and Plan: To receive 2 more units packed cells this afternoon. Subjective Subjective Date/Time Seen: 09/01/21 14:32 Patient reports: other ( Unable to obtain) Interval history: patient is sedated on mechanical ventilator again today. Also remains on Levophed and vasopressin for hemorrhagic shock. H&H a bit lower again this afternoon and patient to receive 2 more units of blood. Review of Systems Review of Systems: ROS unobtainable: Yes unobtainable due to endotracheal tube Exam Const: General: patient obtunded ( Intubated sedated) Nutritional Appearance: obese Orientation/consciousness: patient obtunded GI: Inspection: non-distended, obesity and other ( left lower quadrant superficial ecchymoses) GI Palp: Yes Firmness to palpation present (GI) and No Palpable mass present Objective Data Vital Signs Vital Signs: Vital Signs - 24 hr 08/31/21 14:56 08/31/21 15:13 08/31/21 15:31 Temperature 36.7 C 36.7 C Pulse Rate 95 93 118 H Respiratory Rate 32 H 35 H Blood Pressure 133/89 97/67 L Pulse Oximetry 97 99 98 08/31/21 15:50 08/31/21 16:00 08/31/21 16:06 Temperature 36.7 C 36.7 C 36.8 C Pulse Rate 115 H 100 111 H Respiratory Rate 38 H 32 H 37 H Blood Pressure 100/43 L 136/97 H 109/83 Pulse Oximetry 97 97 97 08/31/21 16:54 08/31/21 17:06 08/31/21 18:00 Temperature 36.8 C Pulse Rate 120 H 112 H 100 Respiratory Rate 29 H 28 H Blood Pressure 84/71 L 142/100 H Pulse Oximetry 97 97 96 08/31/21 18:01 08/31/21 18:06 08/31/21 18:42 Temperature 37.0 C 36.9 C Pulse Rate 112 H 116 H 93 Respiratory Rate 27 H 31 H 31 H Blood Pressure 55/24 L 170/104 H 99/
--- NOTE | 2021-09-01 14:49 | PM.IMPN ---
Progress Note: A&P Assessment and Plan (1) Anemia associated with acute blood loss: Code(s): D62 - Acute posthemorrhagic anemia Status: Acute Assessment and Plan: Continue serial hemoglobin checks every 4 hours Patient initially received 4 units of PRBC, 2 units of FFP, 1 unit of cryo. 09/01 2 units of PRBC and 4 units of FFP were given Patient was also given vitamin K Hospital does not have andexanet Kcentra not given due to high risk of new or worsening of her current thrombosis as patient already has PE and and also has COVID-19. Also her last dose of Eliquis was more than 24 hours ago Most recent hemoglobin is 6.9/20.2 INR is 1.6 and fibrinogen is 182. CT 08/30 IMPRESSION: 1. Large hematoma in right pelvis extending into the peritoneum with two foci of active extravasation of contrast. 2. Hematomas in the rectus abdominis muscles, right worse than left. 3. Splenic infarcts. Small volume of perisplenic ascites. 4. Diffuse lung disease, consistent with COVID-19 pneumonia. Yesterday I wanted to to transfer patient to a facility where patient can get angiogram and possible embolization if ongoing bleed but due to current COVID 19 pandemic there are no ICU beds available. [facility] called [facility] including [facility] and they did not have any ICU bed available in any of the 6 hospitals. I gave them patient information and they will call me if a bed opens up. Hospitalist provider called [facility], [facility] to see if they have any bed available General surgery was consulted At this point the goal is is to correct coagulopathy, transfuse blood products to maintain adequate hemoglobin level and hopefully the bleeding will stop (2) Hemorrhagic shock: Code(s): R57.8 - Other shock Status: Acute Assessment and Plan: Secondary to blood loss Continue transfusion as above Currently on Levophed and vasopressin Darnell-Synephrine is off Titrate vasopressors Patient has received significant amount of volume. Continue cautious maintenance IV fluids (3) Sepsis: Code(s): A41.9 - Sepsis, unspecified organism Status: Acute Assessment and Plan: Urine blood cultures have been sent Patient is on empiric vancomycin and cefepime Will hold vancomycin if cultures remain negative due to impaired renal function (4) Pulmonary embolism: Qualifiers: Pulmonary embolism type: unspecified Chronicity: acute Acute cor pulmonale presence: without acute cor pulmonale Qualified Code(s): I26.99 - Other pulmonary embolism without acute cor pulmonale Code(s): I26.99 - Other pulmonary embolism without acute cor pulmonale Status: Acute Assessment and Plan: Currently off of anticoagulation secondary to hemorrhagic shock. Not a candidate for anticoagulation at this time Checked lower extremity Dopplers for DVT and were negative (5) JERRY (acute kidney injury): Code(s): N17.9 - Acute kidney failure, unspecified Status: Acute Assessment and Plan: Likely secondary to shock Monitor urine output electrolytes and creatinine CT done yesterday did not show any hydronephrosis Nephrology consult Urine output remains poor May need hemodialysis if continues to worsen or does not improve (6) Abnormal LFTs: Code(s): R79.89 - Other specified abnormal findings of blood chemistry Status: Acute Assessment and Plan: Likely shock liver Monitor levels at this time Hold statin (7) Acute respiratory failure with hypoxia: Code(s): J96.01 - Acute respiratory failure with hypoxia Status: Acute Assessment and Plan: Acute Respiratory failure secondary to cardiac arrest, COVID-19 pneumonia pulmonary emboli Continue full mechanical ventilation support to prevent hypoxemia/hypercarbia and end organ damage. ABG and PCXR reviewed and will repeat in am. Decrease PEEP to 5 and FiO2 is down at 45% Will plan to wean once hemodynamically stabl
[2021-09-01] MEDS: MIDAZOLAM 100MG/NS 100ML(*CRX) 100 MG/100 ML BAG IV CONT (16:02)
[2021-09-01 16:56] LABS: Glucose Point of Care 152 mg/dl (65-105)
[2021-09-01] MEDS: SODIUM CHLORIDE 0.9% IV 250 ML 30 ML IV CONT (17:08)
[2021-09-01 17:17] LABS: Hematocrit 26.3 % (37.0-47.0); Hemoglobin 8.9 g/dL (12.0-15.0); Mean Corpuscular HGB Conc 33.8 g/dl (32-36); Mean Corpuscular Volume 88.6 fl (80-100); Mean Platelet Volume 10.7 fl (7.4-10.4); Platelet Count Result 174 k/mm3 (150-375); Red Blood Count 2.97 M/mm3 (4.2-5.4); Red Cell Distribution Width 15.6 % (11.5-14.5); White Blood Count 19.9 K/mm3 (4.5-10.0)
[2021-09-01 17:29] LABS: INR 1.6; Partial Thromboplastin Time 29.7 SECONDS (22.3-36.8); Prothrombin Time 18.5 Seconds (11.1-14.7)
[2021-09-01 17:35] LABS: Fibrinogen 202 mg/dl (215-510)
--- NOTE | 2021-09-01 19:00 | WPDPROCEDUR ---
Procedures Central Line Placement Left Femoral: Central Line Date: 09/01/21 Central Line Time: 19:00 Discussed w/ the patient/family/POA,the placement of a central venous catheter, including its clinical necessity/indication & associated potential risks, benifits and alternatives.: Yes Consent: RN obtained consent from family. Time Out Performed: Yes Patient Position: supine Patient placed on monitor/pulse ox: Yes Provider Prep: mask, sterile gown, sterile gloves, Max. sterile barrier precautions, cap and hand hygiene with conventional soap/water or alcohol based hand rub Central line prep: 2% Chlorhexidine scrub Local anesthesia used: lidocaine 1% Amount of anesthesia used (ml): 3 Sterile US Technique with sterile gel/sterile probe covers: Yes Central line lumen inserted: triple Venezuelan: 7 Length (cm): 20 Post Procedure: sutured in place, good blood return, all ports aspirated, flushed, capped, transparent dressing, antimicrobial product and aseptic technique maintained throughout procedure Post procedure x-ray: other (n/a with femoral placement) Patient tolerated procedure: well Complications: none
[2021-09-01 22:20] LABS: Hematocrit 25.4 % (37.0-47.0); Hemoglobin 8.7 g/dL (12.0-15.0)
[2021-09-01 23:49] LABS: Glucose Point of Care 153 mg/dl (65-105)
[2021-09-02] VITALS (40 sets, daily range): BP systolic 74–178; BP diastolic 32–88; PULSE 56–115; RESP 24–29; TEMP 36.4–37.1; O2SAT 87–100
[2021-09-02] MEDS: CENTRAL LINE FLUSH 10 ML IV PUSH ×8 (00:33→20:25)
[2021-09-02 00:44] LABS: Glucose Point of Care 158 mg/dl (65-105)
[2021-09-02 02:43] LABS: Hematocrit 24.9 % (37.0-47.0); Hemoglobin 8.6 g/dL (12.0-15.0); Mean Corpuscular HGB Conc 34.5 g/dl (32-36); Mean Corpuscular Hemoglobin 30.1 pg (26-34); Mean Corpuscular Volume 87.1 fl (80-100); Mean Platelet Volume 10.8 fl (7.4-10.4); Platelet Count Result 197 k/mm3 (150-375); Red Blood Count 2.86 M/mm3 (4.2-5.4); White Blood Count 19.5 K/mm3 (4.5-10.0)
[2021-09-02 04:27] LABS: Glucose Point of Care 170 mg/dl (65-105)
[2021-09-02] MEDS: FENTANYL 2,500MCG/NS250ML(*CRX 2,500 MCG/250 ML BAG 10 MCG IV CONT (05:05)
[2021-09-02] MEDS: HYDROCORTISONE SODIUM SUCCINATE 100 MG/2 ML VIAL IV PUSH ×3 (05:06→20:24)
[2021-09-02 05:46] LABS: Alveolar/Arterial O2 Gradient 228.7 mmHg; Base Excess ABG -1.6 mEq/l (+/-2.0); Carboxyhemoglobin 0.2 % THb (0-2.0); Fractional Inspired Oxygen 45 %; HCO3 ABG 22.1 mEq/l (22.0-26.0); Methemoglobin ABG 0.3 %THb (0-1.5); Oxygen Content ABG 10.2 %vol (16.0-22.0); PO2 ABG 54.6 mmHg (80.0-100.0); PO2 FiO2 Ratio Arterial Blood 1.21 %; Reduced Hemoglobin 12.2 %THb (0-5.0); Total Hemoglobin 8.3 g/dL (12.0-18.0); pH ABG 7.444 (7.350-7.450)
[2021-09-02 05:49] LABS: Device VENTILATOR; Modified Allen's Test Pass; Oxyhemoglobin 87.3 % THb (90.0-100.0); Site Drawn RIGHT RADIAL
[2021-09-02 05:50] LABS: Arterial Blood Gas PEEP 5 cmH2O; Arterial Blood Gas Tidal Volume 400 ml; Arterial Blood Gas Vent Mode CMV; Arterial Blood Gas Ventilator rate 24 /MIN
[2021-09-02 06:23] LABS: Basophils Percent Auto 0.2 % (0.2-1.2); Hemoglobin 8.1 g/dL (12.0-15.0); Immature Granulocyte Absolute 0.23 K/mm3 (0.00-0.031); Immature Granulocyte Percent A 1.2 % (0-0.5); Lymphocytes Absolute Auto 1.74 K/mm3 (0.9-3.2); Lymphocytes Percent Auto 9.3 % (18.3-44.2); Mean Corpuscular HGB Conc 33.8 g/dl (32-36); Mean Corpuscular Hemoglobin 29.8 pg (26-34); Mean Corpuscular Volume 88.2 fl (80-100); Mean Platelet Volume 10.8 fl (7.4-10.4); Monocytes Absolute Auto 1.6 K/mm3 (0.1-0.6); Monocytes Percent Auto 8.3 % (2.6-8.5); Neutrophils Absolute Auto 15.1 K/mm3 (1.3-6.7); Nucleated Red Blood Cells Absolute Auto 0.1 K/mm3 (0.0-0.012); Nucleated Red Blood Cells Perc 0.3 % (0.0-0.2); Platelet Count Result 189 k/mm3 (150-375); Red Blood Count 2.72 M/mm3 (4.2-5.4); Red Cell Distribution Width 15.2 % (11.5-14.5); White Blood Count 18.6 K/mm3 (4.5-10.0)
[2021-09-02 06:35] LABS: Alkaline Phosphatase 60 U/L (38-126); Anion Gap 12 mmol/L (8-16); Blood Urea Nitrogen 65 mg/dL (7-17); Calcium 7.4 mg/dL (8.4-10.2); Carbon Dioxide 26 mmol/L (22-30); Chloride 91 mmol/L (98-107); Estimated CRCL calculation 14 ml/min; Estimated Glomerular Filt Rate 7; Glucose 151 mg/dL (65-110); Potassium 4.9 mmol/L (3.4-5.0); Sodium 129 mmol/L (137-145)
[2021-09-02 06:47] LABS: Alanine Aminotransferase 1014 U/L (4-35); Aspartate Amino Transferase 983 U/L (14-36)
[2021-09-02] MEDS: MINERAL OIL/WHITE PETROLATUM OINTMENT 1 APPLIC EACH EYE ×2 (09:14→19:58)
[2021-09-02 09:29] LABS: Glucose Point of Care 134 mg/dl (65-105)
--- NOTE | 2021-09-02 09:36 | PM.PNNEP ---
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/dialysis - Since she had renal function that was normal before this, if she gets better hemodynamically then possibly she could turn around before needing dialysis follow trend of repeat labs and UOP (2) Anemia associated with acute blood loss: Code(s): D62 - Acute posthemorrhagic anemia Status: Acute Assessment and Plan: as noted by recent CT scan: arge hematoma in right pelvis extending into the peritoneum with two foci of active extravasation of contrast; hematomas in the rectus abdominis muscles, right worse than left s/p mulitple blood products (PRBC, FFP, cryo) as well as DDAVP and tranexamic acid s/p Vitamin K as well given coagulopathy (andexanet unavailable here) follow H/H and coags option to transfer to another facility for possible angiogram and possible embolization if ongoing bleed unavailable to no ICU bed available at other hospitals due to COVID pandemic (3) Hemorrhagic shock: Code(s): R57.8 - Other shock Status: Acute Assessment and Plan: secondary to blood loss (see #2) continue transfusion as needed on vasopressor therapy - wean as tolerated s/p aggressive IVF resuscitation follow trend of hemodynamics (4) Acute respiratory failure with hypoxia: Code(s): J96.01 - Acute respiratory failure with hypoxia Status: Acute Assessment and Plan: due to cardiac arrest, COVID pneumonia, and pulmonary embolism continue ventilator support weaning when more stable (5) Pneumonia due to COVID-19 virus: Code(s): U07.1 - COVID-19; J12.82 - Pneumonia due to coronavirus disease 2019 Status: Acute Assessment and Plan: positive by recent testing on steroids (more so for shock than COVID at this time) s/p convalscent plasam on 08/22/21 s/p remdesivir but stopped due to elevated LFTs and renal dysfunction continue supportive therapy (6) Pulmonary embolism: Qualifiers: Acute cor pulmonale presence: without acute cor pulmonale Chronicity: acute Pulmonary embolism type: unspecified Qualified Code(s): I26.99 - Other pulmonary embolism without acute cor pulmonale Code(s): I26.99 - Other pulmonary embolism without acute cor pulmonale Status: Acute Assessment and Plan: as diagnosed by CT angiogram of chest off all anticoagulation due to #2 and #3 (7) Encephalopathy: Code(s): G93.40 - Encephalopathy, unspecified Status: Acute Assessment and Plan: due toxic metabolic issues but possible anoxic brain injury due to cardiac arrest CT of head unremarkable difficult to do full assessment given her other above medical issues will likely need MRI at some point Will continue to follow. Subjective Date/time seen: 09/02/21 09:36 Chart reviewed - assuming care from Dr. Patel; remains intubated and sedated; remains on vasopressor support to maintain MAP (although neosynephrine has been weaned off - still requiring levophed and vasopressin); urine output continues to decline; central line placed yesterday for ongoing IV access needs. Exam Narrative: General: WD/WN female intubated/sedated on ventilator Heart: normal S1 and S2; no rub Lungs: coarse breath sounds Abdomen: soft, nontender, nondistended; RLQ bruising noted Extremities: no cyanosis or clubbing; no edema Skin: warm
--- NOTE | 2021-09-02 09:36 | P.PNNP_ITS ---
Progress Note: A&P Assessment and Plan (1) JERRY (acute kidney injury): Code(s): N17.9 - Acute kidney failure, unspecified Status: Acute Assessment and Plan: * due to ATN from: * hemorrhagic shock * contrast exposure * obstruction * creatinine continues to rise in association with poor urine output * evaluation to date: * likely renal ultrasound with evidence of obstruction - Urology consulted * CPK mildly elevated (but not enough to affect kidney function) * urine electrolytes non-prerenal * s/p adequate volume resuscitation * she remains at high risk for needing possible AURIST/dialysis - Since she had renal function that was normal before this, if she gets better hemodynamically then possibly she could turn around before needing dialysis * follow trend of repeat labs and UOP (2) Anemia associated with acute blood loss: Code(s): D62 - Acute posthemorrhagic anemia Status: Acute Assessment and Plan: * as noted by recent CT scan: * arge hematoma in right pelvis extending into the peritoneum with two foci of active extravasation of contrast; hematomas in the rectus abdominis muscles, right worse than left * s/p mulitple blood products (PRBC, FFP, cryo) as well as DDAVP and tranexamic acid * s/p Vitamin K as well given coagulopathy (andexanet unavailable here) * follow H/H and coags * option to transfer to another facility for possible angiogram and possible embolization if ongoing bleed unavailable to no ICU bed available at other hospitals due to COVID pandemic (3) Hemorrhagic shock: Code(s): R57.8 - Other shock Status: Acute Assessment and Plan: * secondary to blood loss (see #2) * continue transfusion as needed * on vasopressor therapy - wean as tolerated * s/p aggressive IVF resuscitation * follow trend of hemodynamics (4) Acute respiratory failure with hypoxia: Code(s): J96.01 - Acute respiratory failure with hypoxia Status: Acute Assessment and Plan: * due to cardiac arrest, COVID pneumonia, and pulmonary embolism * continue ventilator support * weaning when more stable (5) Pneumonia due to COVID-19 virus: Code(s): U07.1 - COVID-19; J12.82 - Pneumonia due to coronavirus disease 2018 Status: Acute Assessment and Plan: * positive by recent testing * on steroids (more so for shock than COVID at this time) * s/p convalscent plasam on 08/22/21 * s/p remdesivir but stopped due to elevated LFTs and renal dysfunction * continue supportive therapy (6) Pulmonary embolism: Qualifiers: Acute cor pulmonale presence: without acute cor pulmonale Chronicity: acute Pulmonary embolism type: unspecified Qualified Code(s): I26.99 - Other pulmonary embolism without acute cor pulmonale Code(s): I26.99 - Other pulmonary embolism without acute cor pulmonale Status: Acute Assessment and Plan: * as diagnosed by CT angiogram of chest * off all anticoagulation due to #2 and #3 (7) Encephalopathy: Code(s): G93.40 - Encephalopathy, unspecified Status: Acute Assessment and Plan: * due toxic metabolic issues but possible anoxic brain injury due to cardiac arrest * CT of head unremarkable * difficult to do full assessment given her other above medical issues * will likely need MRI at some point Will continue to follow. Subjective Date/time seen: 09/02/21 09:36 Chart reviewed - assuming care from Dr. Patel; remains intubated and sedated; remains on vasopressor support t
--- NOTE | 2021-09-02 09:45 | PM.PNGS ---
Progress Note: A&P Assessment and Plan (1) Sepsis: Code(s): A41.9 - Sepsis, unspecified organism Status: Acute Assessment and Plan: multifactorial, COVID pneumonia, active hemorrhage, etc, poor overall prognosis (2) Hemorrhagic shock: Code(s): R57.8 - Other shock Status: Acute Assessment and Plan: will need transfer if possible to tertiary care facility for IR angioembolization (3) Pneumonia due to 2019-nCoV: Code(s): U07.1 - COVID-19; J12.82 - Pneumonia due to coronavirus disease 2019 Status: Acute Assessment and Plan: supportive care, on vent (4) JERRY (acute kidney injury): Code(s): N17.9 - Acute kidney failure, unspecified Status: Acute Assessment and Plan: worsening, nephrology on board (5) Pulmonary embolism: Qualifiers: Pulmonary embolism type: unspecified Chronicity: acute Acute cor pulmonale presence: without acute cor pulmonale Qualified Code(s): I26.99 - Other pulmonary embolism without acute cor pulmonale Code(s): I26.99 - Other pulmonary embolism without acute cor pulmonale Status: Acute Assessment and Plan: cont current mgmt given ongoing bleeding Subjective Subjective Date/Time Seen: 09/02/21 09:45 no acute issues overnight, still c slow drift in H/H Review of Systems Review of Systems: ROS unobtainable: Yes unobtainable due to endotracheal tube Exam Const: General: ill appearing Resp: Auscultation: diminished lung sounds Cardio: Rate: tachycardic GI: Inspection: distended GI Palp: Yes Soft to palpation Objective Data Vital Signs Vital Signs: Vital Signs - 24 hr 09/01/21 10:00 09/01/21 10:52 09/01/21 11:57 Temperature Pulse Rate 83 128 H 120 H Respiratory Rate 27 H Blood Pressure 106/66 Pulse Oximetry 97 95 09/01/21 12:00 09/01/21 13:44 09/01/21 14:00 Temperature 36.6 C Pulse Rate 129 H 122 H 110 H Respiratory Rate 23 H 27 H Blood Pressure 66/36 L 90/67 L Pulse Oximetry 97 96 96 09/01/21 14:47 09/01/21 15:03 09/01/21 15:50 Temperature 36.6 C 36.8 C Pulse Rate 133 H 82 109 H Respiratory Rate 28 H 32 H 23 H Blood Pressure 67/51 L 112/61 Pulse Oximetry 93 92 09/01/21 15:53 09/01/21 16:00 09/01/21 16:02 Temperature 36.8 C 36.1 C L Pulse Rate 86 92 109 H Respiratory Rate 28 H 28 H 23 H Blood Pressure 97/75 L 89/58 L Pulse Oximetry 92 96 09/01/21 16:13 09/01/21 18:00 09/01/21 18:38 Temperature 36.8 C Pulse Rate 114 H 64 86 Respiratory Rate 26 H 24 H Blood Pressure 110/48 L 117/67 78/67 L Pulse Oximetry 92 95 09/01/21 19:02 09/01/21 19:58 09/01/21 20:00 Temperature Pulse Rate 86 110 H 61 Respiratory Rate Blood Pressure 78/67 L Pulse Oximetry 97 09/01/21 21:00 09/01/21 21:27 09/01/21 21:40 Temperature 36.9 C Pulse Rate 84 70 78 Respiratory Rate 24 H Blood Pressure 98/66 L 93/52 L Pulse Oximetry 96 96 09/01/21 21:41 09/01/21 21:42 09/01/21 22:00 Temperature Pulse Rate 70 70 61 Respiratory Rate 24 H Blood Pressure 93/52 L Pulse Oximetry 09/01/21 22:03 09/01/21 23:38 09/02/21 00:00 Temperature 37.1 C Pulse Rate 65 92 80 Respiratory Rate 24 H 24 H Blood Pressure 104/51 L 90/46 L Pulse Oximetry 94 95 92 09/02/21 02:00 09/02/21 02:07 09/02/21 02:08 Temperature Pulse Rate 115 H 115 H 115 H Respiratory Rate 29 H 29 H 29 H Blood Pressure 124/54 L 124/54 L Pulse Oximetry 87 L 09/02/21 03:51 09/02/21 04:00 09/02/21 05:05 Temperature Pulse Rate 60 97 56 L Respiratory Rate 28 H 24 H Blood Pressure 138/88 98/77 L Pulse Oximetry 96 09/02/21 05:08 09/02/21 06:00 09/02/21 06:10 Temperature 36.9 C Pulse Rate 75 100 88 Respiratory Rate 24 H Blood Pressure 119/81 100/39 L Pulse Oximetry 96 95 09/02/21 08:29 Temperature Pulse Rate 96 Respiratory Rate Blood Pressure Pulse Oximetry 93 Intake/Output Intake/Output: Intake & Output
--- NOTE | 2021-09-02 10:00 | WPDINTPN ---
Progress Note: A&P Assessment and Plan (1) Anemia associated with acute blood loss: Code(s): D62 - Acute posthemorrhagic anemia Status: Acute Assessment and Plan: Patient initially received 4 units of PRBC, 2 units of FFP, 1 unit of cryo. 08/31 2 units of PRBC and 4 units of FFP were given. Patient was also given vitamin K. Hospital does not have andexanet and Kcentra not given due to high risk of new or worsening of her current thrombosis as patient already has PE and and also has COVID-19. Also her last dose of Eliquis was more than 24 hours ago 09/01 2 units of PRBC, DDAVP, tranexamic acid was given Her hemoglobin continues to trend down but very slowly. Continue monitoring and transfuse as needed Monitor coags CT 08/30 IMPRESSION: 1. Large hematoma in right pelvis extending into the peritoneum with two foci of active extravasation of contrast. 2. Hematomas in the rectus abdominis muscles, right worse than left. 3. Splenic infarcts. Small volume of perisplenic ascites. 4. Diffuse lung disease, consistent with COVID-19 pneumonia. 08/31 I wanted to to transfer patient to a facility where patient can get angiogram and possible embolization if ongoing bleed but due to current COVID 19 pandemic there are no ICU beds available. I called [facility] including [facility] and they did not have any ICU bed available in any of the 6 hospitals. I gave them patient information and they will call me if a bed opens up. Hospitalist provider called [facility], [facility] to see if they have any bed available General surgery was consulted but no surgical options at this time 09/01 I called [facility] and [facility] again and no beds available At this point the goal is is to correct coagulopathy, transfuse blood products to maintain adequate hemoglobin level and hopefully the bleeding will stop (2) Hemorrhagic shock: Code(s): R57.8 - Other shock Status: Acute Assessment and Plan: Secondary to blood loss Continue transfusion as above Currently on Levophed and vasopressin Darnell-Synephrine is off Titrate vasopressors and Levophed is being weaned Patient has received significant amount of volume. Hold further IV fluids and only administer blood products as needed (3) Sepsis: Code(s): A41.9 - Sepsis, unspecified organism Status: Acute Assessment and Plan: Urine blood cultures have been sent Patient is on empiric cefepime Will hold vancomycin if cultures remain negative due to impaired renal function (4) Pulmonary embolism: Qualifiers: Pulmonary embolism type: unspecified Chronicity: acute Acute cor pulmonale presence: without acute cor pulmonale Qualified Code(s): I26.99 - Other pulmonary embolism without acute cor pulmonale Code(s): I26.99 - Other pulmonary embolism without acute cor pulmonale Status: Acute Assessment and Plan: Currently off of anticoagulation secondary to hemorrhagic shock. Not a candidate for anticoagulation at this time Checked lower extremity Dopplers for DVT and were negative (5) JERRY (acute kidney injury): Code(s): N17.9 - Acute kidney failure, unspecified Status: Acute Assessment and Plan: Likely secondary to shock, contrast for CT and possible obstruction Renal US IMPRESSION: 1. Mild bilateral hydroureteronephrosis. 2. Large pelvic hematoma. 3. Small amount of perihepatic ascites. Monitor urine output electrolytes and creatinine Nephrology following Urine output remains poor and creatinine continues to increase. Electrolyte and acid-base are stable Consult urology for hydroureteronephrosis and urology has ordered repeat CT abdomen pelvis which is pending May need hemodialysis if continues to worsen (6) Abnormal LFTs: Code(s): R79.89 - Other specified abnormal findings of blood chemistry Status: Acute Assessment and Plan: Likely shock liver Monitor levels at this time Hold statin (
--- NOTE | 2021-09-02 12:07 | WPDURCON ---
Assessment and Plan Assessment and plan (1) Bilateral hydronephrosis: Code(s): N13.30 - Unspecified hydronephrosis Status: Acute Assessment and Plan: 55 yo female with worsening renal function and progressive B hydro on CT due to expanding pelvic hematoma. I reviewed CT images with Dr. Brown from radiology. Due to her severely distorted pelvic anatomy, retrograde ureteral stents to alleviate the hydronephrosis would be extremely difficulty and may be unsuccessful since the hematoma would likely compress the stents as well. After discussing options, recommend bilateral nephrostomy tube placement to alleviate the hydronephrosis in the setting of her distorted pelvic anatomy. Dr Brown is planning to place B nephrostomy tubes today. I have discussed this with the ICU attending and the patient's who are all in agreement. Recommend continuing castaneda catheter for now. Nephrology is following as well- likely her JERRY is multifactorial in nature as she had recent cardiac arrest, is on pressors, and received IV dye load for CTangio on 08/30/21. (2) JERRY (acute kidney injury): Code(s): N17.9 - Acute kidney failure, unspecified Status: Acute Urology Consult Note HPI Date Seen: 09/02/21 Requesting Physician: Freddy Mojica MD Primary Care Provider: Jake Panda MD Consult Narrative Narrative: Arielle Zuleta is a 55 year old female admitted with Covid and SOB who was subsequently anticoagulated for a PE. She developed a large pelvic hematoma on 08/30/21 related to anticoagulation and suffered a cardiac arrest. Has been in ICU on levophed. CTangio on 08/30/21 showed the pelvic hematoma with minimal dilation of collecting system bilaterally. Over the last 48 hrs, her renal function has worsened and has had minimal urine output. CELESTE yesterday showed mild bilateral hydroureteronephrosis. Nursing notes minimal output of bloody urine. Repeat CT this AM (noncontrast) shows mild/moderate bilateral hydronephrosis with retained contrast from CT 08/30/21 with expanding pelvic hematoma and castaneda in bladder but bladder is displaced in the pelvis due to the size of pelvic hematoma. Review of Systems Review of Systems: ROS unobtainable: Yes unobtainable due to endotracheal tube and unobtainable due to medical condition PMFSH Past Medical History Medical History BMI 35.0-35.9,adult Chest wall deformity Dysphagia Elevated glucose Elevated liver enzymes Epigastric pain Obesity Onychomycosis Plantar fasciitis of left foot Surgical History Surgical History H/O arthroscopy of knee 2012, right knee 2009? left knee H/O shoulder surgery right shoulder, 2019 H/O: section Family History Family History Father Hypertension Family history of heart disease in male family member before age 55 Sibling Hypertension Cerebrovascular accident Family history of diabetes mellitus in first degree relative Family history of heart disease in male family member before age 55 Mother Family history of diabetes mellitus in first degree relative Grandparent Diabetes mellitus Sibling Diabetes mellitus Other Family history of cardiovascular disease Family history of elevated blood lipids Family history of mental disorder Social History Social History Smoking status: Never smoker Second hand tobacco smoke exposure: Yes Alcohol intake: never Substance use: never Substance use type: does not use 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
[2021-09-02] MEDS: CALCIUM GLUC 2,000 MG/NS 100ML 2,000 MG/100 ML BAG 100 MG IVPB (12:12)
[2021-09-02 12:19] LABS: Glucose Point of Care 148 mg/dl (65-105)
[2021-09-02 14:28] LABS: Hematocrit 23.3 % (37.0-47.0); Hemoglobin 7.8 g/dL (12.0-15.0); Mean Corpuscular HGB Conc 33.5 g/dl (32-36); Mean Corpuscular Volume 89.6 fl (80-100); Mean Platelet Volume 10.9 fl (7.4-10.4); Platelet Count Result 198 k/mm3 (150-375); Red Cell Distribution Width 15.2 % (11.5-14.5); White Blood Count 20.7 K/mm3 (4.5-10.0)
--- NOTE | 2021-09-02 15:47 | PC.NURSE ---
Addendum entered by Delmi Pate RN 09/02/21 15:52: 1550-Procedure started, patient placed in prone position on CT table. Original Note: 1425- Patient off floor for nephrostomy tube placement .
[2021-09-02] MEDS: NOREPINEPHRINE 8 MG/D5W 250 ML 8 MG/250 ML BAG 18.75 MG IV CONT (17:41)
[2021-09-02] MEDS: MIDAZOLAM 100MG/NS 100ML(*CRX) 100 MG/100 ML BAG 6 MG IV CONT (17:43)
[2021-09-02 17:56] LABS: Glucose Point of Care 155 mg/dl (65-105)
[2021-09-02 18:02] LABS: Hemoglobin 7.6 g/dL (12.0-15.0); Mean Corpuscular HGB Conc 34.5 g/dl (32-36); Mean Corpuscular Hemoglobin 30.3 pg (26-34); Mean Corpuscular Volume 87.6 fl (80-100); Mean Platelet Volume 10.7 fl (7.4-10.4); Platelet Count Result 208 k/mm3 (150-375); Red Blood Count 2.51 M/mm3 (4.2-5.4); Red Cell Distribution Width 14.9 % (11.5-14.5); White Blood Count 17.9 K/mm3 (4.5-10.0)
[2021-09-02 18:34] LABS: Sodium Urine Random 112 meq/L
[2021-09-02 18:42] LABS: Creatinine Urine 13.1 mg/dL
[2021-09-02 20:41] LABS: Glucose Point of Care 176 mg/dl (65-105)
[2021-09-02 21:44] LABS: Total Protein Urine Random > 600 mg/dL
[2021-09-02] MEDS: FENTANYL 2,500MCG/NS250ML(*CRX 2,500 MCG/250 ML BAG 20 MCG IV CONT (22:12)
[2021-09-02] MEDS: MIDAZOLAM 100MG/NS 100ML(*CRX) 100 MG/100 ML BAG 10 MG IV CONT (22:23)
[2021-09-03] VITALS (37 sets, daily range): BP systolic 85–159; BP diastolic 48–77; PULSE 55–152; RESP 24–30; TEMP 36.3–37.1; O2SAT 86–98
[2021-09-03 00:42] LABS: Mean Corpuscular Hemoglobin 30.4 pg (26-34); Mean Corpuscular Volume 89.4 fl (80-100); Mean Platelet Volume 10.7 fl (7.4-10.4); Platelet Count Result 191 k/mm3 (150-375); Red Blood Count 2.17 M/mm3 (4.2-5.4); Red Cell Distribution Width 14.9 % (11.5-14.5); White Blood Count 15.5 K/mm3 (4.5-10.0)
[2021-09-03] MEDS: NOREPINEPHRINE 8 MG/D5W 250 ML 8 MG/250 ML BAG 18.75 MG IV CONT (00:52)
[2021-09-03 00:55] LABS: Hemoglobin 6.6 g/dL (12.0-15.0)
[2021-09-03 00:56] LABS: Glucose Point of Care 148 mg/dl (65-105)
[2021-09-03 00:56] LABS: Hematocrit 19.4 % (37.0-47.0)
[2021-09-03 03:38] LABS: Glucose Point of Care 164 mg/dl (65-105)
[2021-09-03] MEDS: HYDROCORTISONE SODIUM SUCCINATE 100 MG/2 ML VIAL IV PUSH ×3 (04:34→20:28)
[2021-09-03] MEDS: CENTRAL LINE FLUSH 10 ML IV PUSH ×8 (04:34→20:28)
[2021-09-03 06:05] LABS: Alveolar/Arterial O2 Gradient 165.4 mmHg; Base Excess ABG -1.4 mEq/l (+/-2.0); Carboxyhemoglobin 0.2 % THb (0-2.0); Fractional Inspired Oxygen 40 %; HCO3 ABG 22.1 mEq/l (22.0-26.0); Methemoglobin ABG 0.3 %THb (0-1.5); Oxygen Content ABG 14.5 %vol (16.0-22.0); Oxygen Saturation ABG 96.5 % (95.0-100.0); Oxyhemoglobin 94.6 % THb (90.0-100.0); PCO2 ABG 33.1 mmHg (35.0-45.0); PO2 ABG 81.7 mmHg (80.0-100.0); PO2 FiO2 Ratio Arterial Blood 2.04 %; Reduced Hemoglobin 4.9 %THb (0-5.0); Total Hemoglobin 10.8 g/dL (12.0-18.0); pH ABG 7.443 (7.350-7.450)
[2021-09-03 06:06] LABS: Arterial Blood Gas PEEP 8 cmH2O; Arterial Blood Gas Tidal Volume 400 ml; Arterial Blood Gas Vent Mode CMV; Arterial Blood Gas Ventilator rate 24 /MIN; Device VENTILATOR; Modified Allen's Test Unable to perform; Site Drawn RIGHT RADIAL
[2021-09-03 06:51] LABS: Basophils Percent Auto 0.2 % (0.2-1.2); Hematocrit 23.1 % (37.0-47.0); Hemoglobin 7.9 g/dL (12.0-15.0); Immature Granulocyte Absolute 0.26 K/mm3 (0.00-0.031); Immature Granulocyte Percent A 1.8 % (0-0.5); Lymphocytes Absolute Auto 1.32 K/mm3 (0.9-3.2); Lymphocytes Percent Auto 8.9 % (18.3-44.2); Mean Corpuscular HGB Conc 34.2 g/dl (32-36); Mean Corpuscular Hemoglobin 30.6 pg (26-34); Mean Corpuscular Volume 89.5 fl (80-100); Monocytes Absolute Auto 1.3 K/mm3 (0.1-0.6); Monocytes Percent Auto 8.8 % (2.6-8.5); Neutrophils Absolute Auto 11.9 K/mm3 (1.3-6.7); Neutrophils Percent Auto 80.3 % (45.5-73.1); Nucleated Red Blood Cells Absolute Auto 0.1 K/mm3 (0.0-0.012); Nucleated Red Blood Cells Perc 0.4 % (0.0-0.2); Platelet Count Result 194 k/mm3 (150-375); Red Blood Count 2.58 M/mm3 (4.2-5.4); Red Cell Distribution Width 14.6 % (11.5-14.5); White Blood Count 14.8 K/mm3 (4.5-10.0)
[2021-09-03 07:05] LABS: Albumin Level 2.9 g/dL (3.5-5.1); Alkaline Phosphatase 70 U/L (38-126); Anion Gap 14 mmol/L (8-16); Aspartate Amino Transferase 518 U/L (14-36); Bilirubin,Total 0.9 mg/dL (0.2-1.3); Blood Urea Nitrogen 79 mg/dL (7-17); Calcium 7.7 mg/dL (8.4-10.2); Carbon Dioxide 24 mmol/L (22-30); Chloride 90 mmol/L (98-107); Estimated CRCL calculation 12 ml/min; Estimated Glomerular Filt Rate 6; Glucose 139 mg/dL (65-110); Potassium 4.5 mmol/L (3.4-5.0); Sodium 128 mmol/L (137-145)
[2021-09-03 07:15] LABS: Alanine Aminotransferase 811 U/L (4-35)
[2021-09-03 07:16] LABS: INR 1.5; Prothrombin Time 17.4 Seconds (11.1-14.7)
[2021-09-03 07:17] LABS: Partial Thromboplastin Time 28.6 SECONDS (22.3-36.8)
[2021-09-03 07:22] LABS: Fibrinogen 189 mg/dl (215-510)
[2021-09-03] MEDS: LIDOCAINE 5% PATCH 1 PATCH TRANSDERM (08:44)
[2021-09-03] MEDS: MINERAL OIL/WHITE PETROLATUM OINTMENT 1 APPLIC EACH EYE ×2 (08:45→20:28)
--- NOTE | 2021-09-03 08:53 | WPDINTPN ---
Progress Note: A&P Assessment and Plan (1) Anemia associated with acute blood loss: Code(s): D62 - Acute posthemorrhagic anemia Status: Acute Assessment and Plan: Patient initially received 4 units of PRBC, 2 units of FFP, 1 unit of cryo. 08/31 2 units of PRBC and 4 units of FFP were given. Patient was also given vitamin K. Hospital does not have andexanet and Kcentra not given due to high risk of new or worsening of her current thrombosis as patient already has PE and and also has COVID-19. Also her last dose of Eliquis was more than 24 hours ago 09/01 2 units of PRBC, DDAVP, tranexamic acid was given 09/02 1 unit of PRBC given Her hemoglobin continues to trend down but very slowly. Continue monitoring and transfuse as needed Monitor coags which are in acceptable range at this time CT 08/30 IMPRESSION: 1. Large hematoma in right pelvis extending into the peritoneum with two foci of active extravasation of contrast. 2. Hematomas in the rectus abdominis muscles, right worse than left. 3. Splenic infarcts. Small volume of perisplenic ascites. 4. Diffuse lung disease, consistent with COVID-[address] abdomen pelvis 09/02 3. Large volume of extraperitoneal hematoma in the pelvis centered to the right of midline, mildly worsened from 08/30/21. Moderate volume of hemoperitoneum, worsened from 08/30/21. 4. Moderate bilateral hydronephrosis and hydroureter secondary to mass effect from the pelvic hematoma, worsened from 08/30/21. 5. Hematomas in the rectus abdominis muscles, right worse than left, stable from 08/30/21. 6. Splenic infarcts again seen. 08/31 I wanted to to transfer patient to a facility where patient can get angiogram and possible embolization if ongoing bleed but due to current COVID 19 pandemic there are no ICU beds available. I called [facility] including [facility] and they did not have any ICU bed available in any of the 6 hospitals. I gave them patient information and they will call me if a bed opens up. Hospitalist provider called [facility] to see if they have any bed available General surgery was consulted but no surgical options at this time 09/01 I called [facility] and [facility] again and no beds available 09/02 patient remains on wait list at [facility] At this point the goal is to maintain coags in acceptable range, transfuse blood products to maintain adequate hemoglobin level and hopefully the bleeding will stop (2) Hemorrhagic shock: Code(s): R57.8 - Other shock Status: Acute Assessment and Plan: Secondary to blood loss Continue transfusion as above Currently on Levophed. vasopressin and Darnell-Synephrine has been weaned off Titrate vasopressors and Levophed is being weaned Patient has received significant amount of volume. Hold further IV fluids and only administer blood products as needed (3) Sepsis: Code(s): A41.9 - Sepsis, unspecified organism Status: Acute Assessment and Plan: Urine blood cultures have been sent Patient is on empiric cefepime vancomycin was discontinued as cultures remain negative due to impaired renal function (4) Pulmonary embolism: Qualifiers: Pulmonary embolism type: unspecified Chronicity: acute Acute cor pulmonale presence: without acute cor pulmonale Qualified Code(s): I26.99 - Other pulmonary embolism without acute cor pulmonale Code(s): I26.99 - Other pulmonary embolism without acute cor pulmonale Status: Acute Assessment and Plan: Currently off of anticoagulation secondary to hemorrhagic shock. Not a candidate for anticoagulation at this time Checked lower extremity Dopplers for DVT and were negative (5) JERRY (acute kidney injury): Code(s): N17.9 - Acute kidney failure, unspecified Status: Acute Assessment and Plan: Likely secondary to shock, contrast for CT and possible obstruction Renal US IMPRESSION: 1. Mild bilateral hydroureteronephrosis. 2. Large pelvic
[2021-09-03] MEDS: MIDAZOLAM 100MG/NS 100ML(*CRX) 100 MG/100 ML BAG 10 MG IV CONT (08:58)
[2021-09-03] MEDS: CALCIUM CHLOR 1,000MG/100ML NS 1,000 MG/100 ML BAG 100 MG IVPB (10:51)
[2021-09-03 11:03] LABS: Hematocrit 21.4 % (37.0-47.0); Hemoglobin 7.2 g/dL (12.0-15.0); Mean Corpuscular HGB Conc 33.6 g/dl (32-36); Mean Corpuscular Hemoglobin 29.9 pg (26-34); Mean Corpuscular Volume 88.8 fl (80-100); Mean Platelet Volume 10.5 fl (7.4-10.4); Platelet Count Result 173 k/mm3 (150-375); Red Blood Count 2.41 M/mm3 (4.2-5.4); Red Cell Distribution Width 14.6 % (11.5-14.5); White Blood Count 13.1 K/mm3 (4.5-10.0)
--- NOTE | 2021-09-03 11:21 | P.PNNP_ITS ---
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 - acceptable electrolytes/volume status currently * follow trend of repeat labs and UOP (2) Bilateral hydronephrosis: Code(s): N13.30 - Unspecified hydronephrosis Status: Acute Assessment and Plan: * as noted by renal ultrasound * CT scan (09/02/20) with moderate bilateral hydronephrosis and hydroureter secondary to mass effect from the pelvic hematoma, worsened from 08/30/21 * s/p bilateral CT-guided nephrostomy tube placement on 09/02/20 * Urology following (3) Anemia associated with acute blood loss: Code(s): D62 - Acute posthemorrhagic anemia Status: Acute Assessment and Plan: * as noted by recent CT scan: * arge hematoma in right pelvis extending into the peritoneum with two foci of active extravasation of contrast; hematomas in the rectus abdominis muscles, right worse than left * s/p mulitple blood products (PRBC, FFP, cryo) as well as DDAVP and tranexamic acid * s/p Vitamin K as well given coagulopathy (andexanet unavailable here) * follow H/H and coags * option to transfer to another facility for possible angiogram and possible embolization if ongoing bleed unavailable to no ICU bed available at other [facility] due to COVID pandemic (4) Hemorrhagic shock: Code(s): R57.8 - Other shock Status: Acute Assessment and Plan: * secondary to blood loss (see #3) * continue transfusion as needed * on vasopressor therapy - wean as tolerated * s/p aggressive IVF resuscitation * follow trend of hemodynamics (5) Acute respiratory failure with hypoxia: Code(s): J96.01 - Acute respiratory failure with hypoxia Status: Acute Assessment and Plan: * due to cardiac arrest, COVID pneumonia, and pulmonary embolism * continue ventilator support * weaning when more stable (6) Pneumonia due to COVID-19 virus: Code(s): U07.1 - COVID-19; J12.82 - Pneumonia due to coronavirus disease 2019 Status: Acute Assessment and Plan: * positive by recent testing * on steroids (more so for shock than COVID at this time) * s/p convalscent plasam on 08/22/21 * s/p remdesivir but stopped due to elevated LFTs and renal dysfunction * continue supportive therapy (7) Pulmonary embolism: Qualifiers: Pulmonary embolism type: unspecified Chronicity: acute Acute cor pulmonale presence: without acute cor pulmonale Qualified Code(s): I26.99 - Other pulmonary embolism without acute cor pulmonale Code(s): I26.99 - Other pulmonary embolism without acute cor pulmonale Status: Acute Assessment and Plan: * as diagnosed by CT angiogram of chest * off all anticoagulation due to #3 and #4 (8) Encephalopathy: Code(s): G93.40 - Encephalopathy, unspecified Status: Acute Assessment and Plan: * due toxic metabolic issues but possible anoxic brain injury due to cardiac arrest * CT of head unremarkable *
--- NOTE | 2021-09-03 11:21 | PM.PNNEP ---
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 [employer]/dialysis - acceptable electrolytes/volume status currently follow trend of repeat labs and UOP (2) Bilateral hydronephrosis: Code(s): N13.30 - Unspecified hydronephrosis Status: Acute Assessment and Plan: as noted by renal ultrasound CT scan (09/02/20) with moderate bilateral hydronephrosis and hydroureter secondary to mass effect from the pelvic hematoma, worsened from 08/30/[address] s[address]-guided nephrostomy tube placement on 09/02/20 Urology following (3) Anemia associated with acute blood loss: Code(s): D62 - Acute posthemorrhagic anemia Status: Acute Assessment and Plan: as noted by recent CT scan: arge hematoma in right pelvis extending into the peritoneum with two foci of active extravasation of contrast; hematomas in the rectus abdominis muscles, right worse than left s/p mulitple blood products (PRBC, FFP, cryo) as well as DDAVP and tranexamic acid s/p Vitamin K as well given coagulopathy (andexanet unavailable here) follow H/H and coags option to transfer to another facility for possible angiogram and possible embolization if ongoing bleed unavailable to no ICU bed available at other hospitals due to COVID pandemic (4) Hemorrhagic shock: Code(s): R57.8 - Other shock Status: Acute Assessment and Plan: secondary to blood loss (see #3) continue transfusion as needed on vasopressor therapy - wean as tolerated s/p aggressive IVF resuscitation follow trend of hemodynamics (5) Acute respiratory failure with hypoxia: Code(s): J96.01 - Acute respiratory failure with hypoxia Status: Acute Assessment and Plan: due to cardiac arrest, COVID pneumonia, and pulmonary embolism continue ventilator support weaning when more stable (6) Pneumonia due to COVID-19 virus: Code(s): U07.1 - COVID-19; J12.82 - Pneumonia due to coronavirus disease 2019 Status: Acute Assessment and Plan: positive by recent testing on steroids (more so for shock than COVID at this time) s/p convalscent plasam on 08/22/21 s/p remdesivir but stopped due to elevated LFTs and renal dysfunction continue supportive therapy (7) Pulmonary embolism: Qualifiers: Pulmonary embolism type: unspecified Chronicity: acute Acute cor pulmonale presence: without acute cor pulmonale Qualified Code(s): I26.99 - Other pulmonary embolism without acute cor pulmonale Code(s): I26.99 - Other pulmonary embolism without acute cor pulmonale Status: Acute Assessment and Plan: as diagnosed by CT angiogram of chest off all anticoagulation due to #3 and #4 (8) Encephalopathy: Code(s): G93.40 - Encephalopathy, unspecified Status: Acute Assessment and Plan: due toxic metabolic issues but possible anoxic brain injury due to cardiac arrest CT of head unremarkable difficult to do full assessment given her other above medical issues will likely need MRI at some point Will continue to follow. Subjective Date/time seen: 09/03/21 11:21 Remains on full mechanical ventilator support with ongoing need for vasopressor support although vasopressin weaned off and remains on just Levophed; s/p bilateral nephrostomy tube placement yesterday but urine output remains low; PRBC transfusion due to drop in H/H overnight. Exam
--- NOTE | 2021-09-03 11:59 | WPDUROPN2 ---
Progress Note: A&P Assessment and Plan (1) JERRY (acute kidney injury): Code(s): N17.9 - Acute kidney failure, unspecified Status: Acute (2) Bilateral hydronephrosis: Code(s): N13.30 - Unspecified hydronephrosis Status: Acute Assessment and Plan: s/p B PCN tube placement yesterday for B hydro due to pelvic hematoma - continue nephrostomy tubes and castaneda for now - minimal UOP with rising Cr. Patient's tract is currently maximally drained with castaneda and PCN tubes to alleviate any obstructive component to her JERRY. Will defer to nephrology for ongoing management of JERRY in setting of recent cardiac arrest and levophed requirement; may require HD but will defer to nephrology. Subjective Subjective Date/Time Seen: 09/03/21 11:59 Intubated and sedated. S/P B PCN tubes yesterday. UOP about 150 cc between the two tubes. Scant bloody urine from castaneda. Review of Systems Review of Systems: ROS unobtainable: Yes unobtainable due to endotracheal tube and unobtainable due to medical condition Exam Narrative: 55 yr old intubated/sedated female. Urinary Catheter: Urinary Catheter: urine red (minimal bloody urine in castaneda; B PCN tubes in place ) Objective Data Vital Signs Vital Signs: Vital Signs - 24 hr 09/02/21 12:00 09/02/21 14:00 09/02/21 16:00 Temperature 36.6 C Pulse Rate 65 64 94 Respiratory Rate 25 H 25 H Blood Pressure 103/63 112/67 Pulse Oximetry 97 98 09/02/21 17:41 09/02/21 17:43 09/02/21 17:44 Temperature Pulse Rate 60 60 60 Respiratory Rate 24 H Blood Pressure 178/84 H 178/84 H Pulse Oximetry 09/02/21 17:46 09/02/21 17:48 09/02/21 18:00 Temperature 36.5 C Pulse Rate 59 L 61 60 Respiratory Rate 24 H 24 H Blood Pressure 164/69 H 164/69 H 147/75 H Pulse Oximetry 100 100 09/02/21 18:01 09/02/21 18:02 09/02/21 18:06 Temperature Pulse Rate 60 61 60 Respiratory Rate Blood Pressure 147/75 H 147/75 H 144/74 H Pulse Oximetry 09/02/21 18:23 09/02/21 20:00 09/02/21 20:01 Temperature 36.4 C Pulse Rate 97 66 60 Respiratory Rate 24 H 24 H Blood Pressure 142/68 H 142/68 H Pulse Oximetry 97 96 09/02/21 20:02 09/02/21 20:03 09/02/21 20:15 Temperature Pulse Rate 60 60 65 Respiratory Rate 24 H Blood Pressure 142/68 H Pulse Oximetry 97 09/02/21 20:23 09/02/21 22:00 09/02/21 22:12 Temperature Pulse Rate 62 69 71 Respiratory Rate 24 H Blood Pressure 121/63 Pulse Oximetry 09/02/21 22:23 09/02/21 22:27 09/02/21 23:05 Temperature Pulse Rate 69 69 69 Respiratory Rate 24 H 24 H Blood Pressure 90/46 L Pulse Oximetry 95 95 09/03/21 00:00 09/03/21 00:32 09/03/21 00:52 Temperature 36.4 C L Pulse Rate 74 76 75 Respiratory Rate 24 H Blood Pressure 94/49 L 87/48 L 87/54 L Pulse Oximetry 91 09/03/21 01:21 09/03/21 02:00 09/03/21 02:15 Temperature Pulse Rate 66 76 68 Respiratory Rate Blood Pressure 130/70 Pulse Oximetry 95 09/03/21 03:02 09/03/21 03:15 09/03/21 03:22 Temperature 36.3 C L 36.6 C Pulse Rate 70 77 68 Respiratory Rate 24 H 24 H 24 H Blood Pressure 111/62 108/61 Pulse Oximetry 94 91 09/03/21 03:23 09/03/21 03:24 09/03/21 03:31 Temperature Pulse Rate 66 66 72 Respiratory Rate 24 H Blood Pressure 108/61 108/61 119/64 Pulse Oximetry 09/03/21 04:00 09/03/21 04:15 09/03/21 04:32 Temperature 36.6 C Pulse Rate 65 64 62 Respiratory Rate 24 H Blood Pressure 127/67 135/73 Pulse Oximetry 97 09/03/21 04:35 09/03/21 05:20 09/03/21 06:00 Temperature 36.6 C Pulse Rate 62 65 74 Respiratory Rate 24 H 24 H Blood Pressure 135/73 117/69 Pulse Oximetry 98 97 86 L 09/03/21 08:00 09/03/21 08:30 09/03/21 08:40 Temperature 36.4 C Pulse Rate 71 75 73 Respiratory Rate 24 H 24 H Blood Pressure 121/65 Pulse Oximetry 96 94 09/03/21 08:58 09/03/21 10:00 Temperature Pulse Rate 75 69 Respiratory Rate 24 H 24 H Bl
--- NOTE | 2021-09-03 12:11 | PM.PNGS ---
Progress Note: A&P Assessment and Plan (1) Hemorrhagic shock: Code(s): R57.8 - Other shock Status: Acute Assessment and Plan: seems to be slowly stabilizing, no plans for acute operative intervention at this point, wean pressors as jacqueline, transfer for possible angioembolization if bed becomes available (2) Bilateral hydronephrosis: Code(s): N13.30 - Unspecified hydronephrosis Status: Acute Assessment and Plan: s/p mansoor nephrostomy tubes (3) Sepsis: Code(s): A41.9 - Sepsis, unspecified organism Status: Acute Assessment and Plan: cont supportive care, wean pressors as jacqueline (4) Pneumonia due to 2019-nCoV: Code(s): U07.1 - COVID-19; J12.82 - Pneumonia due to coronavirus disease 2019 Status: Acute Assessment and Plan: see above Subjective Subjective Date/Time Seen: 09/03/21 12:11 events of yest noted, given 1 u PRBC o/n, mansoor nephrostomy tubes placed, CT reviewed Review of Systems Review of Systems: ROS unobtainable: Yes unobtainable due to endotracheal tube Exam Const: General: ill appearing Nutritional Appearance: obese Limitations: physical limitations Resp: Auscultation: diminished lung sounds Cardio: Rate: regular rate Rhythm: regular rhythm GI: Inspection: distended GI Palp: Yes Soft to palpation and Yes Tenderness to palpation present (GI) Objective Data Vital Signs Vital Signs: Vital Signs - 24 hr 09/02/21 14:00 09/02/21 16:00 09/02/21 17:41 Temperature Pulse Rate 64 94 60 Respiratory Rate 25 H Blood Pressure 112/67 178/84 H Pulse Oximetry 98 09/02/21 17:43 09/02/21 17:44 09/02/21 17:46 Temperature 36.5 C Pulse Rate 60 60 59 L Respiratory Rate 24 H 24 H Blood Pressure 178/84 H 164/69 H Pulse Oximetry 100 09/02/21 17:48 09/02/21 18:00 09/02/21 18:01 Temperature Pulse Rate 61 60 60 Respiratory Rate 24 H Blood Pressure 164/69 H 147/75 H 147/75 H Pulse Oximetry 100 09/02/21 18:02 09/02/21 18:06 09/02/21 18:23 Temperature Pulse Rate 61 60 97 Respiratory Rate Blood Pressure 147/75 H 144/74 H Pulse Oximetry 97 09/02/21 20:00 09/02/21 20:01 09/02/21 20:02 Temperature 36.4 C Pulse Rate 66 60 60 Respiratory Rate 24 H 24 H 24 H Blood Pressure 142/68 H 142/68 H Pulse Oximetry 96 09/02/21 20:03 09/02/21 20:15 09/02/21 20:23 Temperature Pulse Rate 60 65 62 Respiratory Rate Blood Pressure 142/68 H 121/63 Pulse Oximetry 97 09/02/21 22:00 09/02/21 22:12 09/02/21 22:23 Temperature Pulse Rate 69 71 69 Respiratory Rate 24 H 24 H Blood Pressure Pulse Oximetry 09/02/21 22:27 09/02/21 23:05 09/03/21 00:00 Temperature 36.4 C L Pulse Rate 69 69 74 Respiratory Rate 24 H 24 H Blood Pressure 90/46 L 94/49 L Pulse Oximetry 95 95 91 09/03/21 00:32 09/03/21 00:52 09/03/21 01:21 Temperature Pulse Rate 76 75 66 Respiratory Rate Blood Pressure 87/48 L 87/54 L 130/70 Pulse Oximetry 09/03/21 02:00 09/03/21 02:15 09/03/21 03:02 Temperature 36.3 C L Pulse Rate 76 68 70 Respiratory Rate 24 H Blood Pressure 111/62 Pulse Oximetry 95 94 09/03/21 03:15 09/03/21 03:22 09/03/21 03:23 Temperature 36.6 C Pulse Rate 77 68 66 Respiratory Rate 24 H 24 H Blood Pressure 108/61 108/61 Pulse Oximetry 91 09/03/21 03:24 09/03/21 03:31 09/03/21 04:00 Temperature Pulse Rate 66 72 65 Respiratory Rate 24 H Blood Pressure 108/61 119/64 Pulse Oximetry 09/03/21 04:15 09/03/21 04:32 09/03/21 04:35 Temperature 36.6 C 36.6 C Pulse Rate 64 62 62 Respiratory Rate 24 H 24 H Blood Pressure 127/67 135/73 135/73 Pulse Oximetry 97 98 09/03/21 05:20 09/03/21 06:00 09/03/21 08:00 Temperature 36.4 C Pulse Rate 65 74 71 Respiratory Rate 24 H 24 H Blood Pressure 117/69 121/65 Pulse Oximetry 97 86 L 96 09/03/21 08:30 09/03/21 08:40 09/03/21 08:58 Temperature Pulse Rate 75 73 75 Respiratory Rat
[2021-09-03 12:31] LABS: Glucose Point of Care 144 mg/dl (65-105)
--- NOTE | 2021-09-03 14:42 | PM.IMPN ---
Progress Note: A&P Assessment and Plan (1) Anemia associated with acute blood loss: Code(s): D62 - Acute posthemorrhagic anemia Status: Acute Assessment and Plan: Patient initially received 4 units of PRBC, 2 units of FFP, 1 unit of cryo. 08/31 2 units of PRBC and 4 units of FFP were given. Patient was also given vitamin K. Hospital does not have andexanet and Kcentra not given due to high risk of new or worsening of her current thrombosis as patient already has PE and and also has COVID-19. Also her last dose of Eliquis was more than 24 hours ago 09/01 2 units of PRBC, DDAVP, tranexamic acid was given 09/02 1 unit of PRBC given Her hemoglobin continues to trend down but very slowly. Continue monitoring and transfuse as needed Monitor coags which are in acceptable range at this time CT 08/30 IMPRESSION: 1. Large hematoma in right pelvis extending into the peritoneum with two foci of active extravasation of contrast. 2. Hematomas in the rectus abdominis muscles, right worse than left. 3. Splenic infarcts. Small volume of perisplenic ascites. 4. Diffuse lung disease, consistent with COVID-[address] abdomen pelvis 09/02 3. Large volume of extraperitoneal hematoma in the pelvis centered to the right of midline, mildly worsened from 08/30/21. Moderate volume of hemoperitoneum, worsened from 08/30/21. 4. Moderate bilateral hydronephrosis and hydroureter secondary to mass effect from the pelvic hematoma, worsened from 08/30/21. 5. Hematomas in the rectus abdominis muscles, right worse than left, stable from 08/30/21. 6. Splenic infarcts again seen. 08/31 I wanted to to transfer patient to a facility where patient can get angiogram and possible embolization if ongoing bleed but due to current COVID 19 pandemic there are no ICU beds available. I called [facility] including [facility] and they did not have any ICU bed available in any of the 6 hospitals. I gave them patient information and they will call me if a bed opens up. Hospitalist provider called [facility] to see if they have any bed available General surgery was consulted but no surgical options at this time 09/01 I called [facility] and [facility] again and no beds available 09/02 patient remains on wait list at [facility] At this point the goal is to maintain coags in acceptable range, transfuse blood products to maintain adequate hemoglobin level and hopefully the bleeding will stop 09/03/2021 Will continue monitor hemoglobin and transfuse as needed. Will monitor x-ray and culture reports. (2) Hemorrhagic shock: Code(s): R57.8 - Other shock Status: Acute Assessment and Plan: Secondary to blood loss Continue transfusion as above Currently on Levophed. vasopressin and Darnell-Synephrine has been weaned off Titrate vasopressors and Levophed is being weaned Patient has received significant amount of volume. Hold further IV fluids and only administer blood products as needed (3) Sepsis: Code(s): A41.9 - Sepsis, unspecified organism Status: Acute Assessment and Plan: Urine blood cultures have been sent Patient is on empiric cefepime vancomycin was discontinued as cultures remain negative due to impaired renal function (4) Pulmonary embolism: Qualifiers: Pulmonary embolism type: unspecified Chronicity: acute Acute cor pulmonale presence: without acute cor pulmonale Qualified Code(s): I26.99 - Other pulmonary embolism without acute cor pulmonale Code(s): I26.99 - Other pulmonary embolism without acute cor pulmonale Status: Acute Assessment and Plan: Currently off of anticoagulation secondary to hemorrhagic shock. Not a candidate for anticoagulation at this time Checked lower extremity Dopplers for DVT and were negative (5) JERRY (acute kidney injury): Code(s): N17.9 - Acute kidney failure, unspecified Status: Acute Assessment and Plan: Likely secondary to shock, contrast
[2021-09-03 16:17] LABS: Glucose Point of Care 95 mg/dl (65-105)
[2021-09-03 17:51] LABS: Hematocrit 21.8 % (37.0-47.0); Hemoglobin 7.4 g/dL (12.0-15.0); Mean Corpuscular HGB Conc 33.9 g/dl (32-36); Mean Corpuscular Hemoglobin 29.7 pg (26-34); Mean Corpuscular Volume 87.6 fl (80-100); Mean Platelet Volume 10.7 fl (7.4-10.4); Platelet Count Result 191 k/mm3 (150-375); Red Blood Count 2.49 M/mm3 (4.2-5.4); Red Cell Distribution Width 14.6 % (11.5-14.5); White Blood Count 14.6 K/mm3 (4.5-10.0)
[2021-09-03 20:52] LABS: Glucose Point of Care 117 mg/dl (65-105)
[2021-09-03] MEDS: PROPOFOL IV EMULSION 100 ML 3.71 MG IV CONT (22:16)
--- NOTE | 2021-09-03 22:55 | PC.NURSE ---
2209 Dr. Mclaughlin informed of restlessness and elevated HR. orders received.
--- NOTE | 2021-09-03 22:57 | PC.NURSE ---
2215 Propofol initiated at 10mcgs as ordered. Fentanyl gtt resumed as ordered.
[2021-09-04] VITALS (41 sets, daily range): BP systolic 89–157; BP diastolic 51–98; PULSE 62–143; RESP 24–30; TEMP 36.1–36.4; O2SAT 94–99
[2021-09-04 00:16] LABS: Glucose Point of Care 90 mg/dl (65-105)
[2021-09-04 00:52] LABS: Mean Corpuscular HGB Conc 33.7 g/dl (32-36); Mean Corpuscular Hemoglobin 29.6 pg (26-34); Mean Platelet Volume 10.5 fl (7.4-10.4); Platelet Count Result 175 k/mm3 (150-375); Red Blood Count 2.16 M/mm3 (4.2-5.4); Red Cell Distribution Width 14.7 % (11.5-14.5); White Blood Count 12.5 K/mm3 (4.5-10.0)
[2021-09-04 00:57] LABS: Hemoglobin 6.4 g/dL (12.0-15.0)
[2021-09-04] MEDS: FENTANYL 2,500MCG/NS250ML(*CRX 2,500 MCG/250 ML BAG 7.5 MCG IV CONT (03:41)
[2021-09-04 05:43] LABS: Basophils Percent Auto 0.2 % (0.2-1.2); Hematocrit 22.5 % (37.0-47.0); Hemoglobin 7.6 g/dL (12.0-15.0); Immature Granulocyte Absolute 0.48 K/mm3 (0.00-0.031); Immature Granulocyte Percent A 3.6 % (0-0.5); Lymphocytes Absolute Auto 1.34 K/mm3 (0.9-3.2); Lymphocytes Percent Auto 10.1 % (18.3-44.2); Mean Corpuscular HGB Conc 33.8 g/dl (32-36); Mean Corpuscular Hemoglobin 29.9 pg (26-34); Mean Corpuscular Volume 88.6 fl (80-100); Mean Platelet Volume 10.3 fl (7.4-10.4); Monocytes Absolute Auto 1.6 K/mm3 (0.1-0.6); Neutrophils Absolute Auto 9.8 K/mm3 (1.3-6.7); Neutrophils Percent Auto 74.1 % (45.5-73.1); Nucleated Red Blood Cells Absolute Auto 0.1 K/mm3 (0.0-0.012); Nucleated Red Blood Cells Perc 0.4 % (0.0-0.2); Platelet Count Result 159 k/mm3 (150-375); Red Blood Count 2.54 M/mm3 (4.2-5.4); Red Cell Distribution Width 14.9 % (11.5-14.5); White Blood Count 13.2 K/mm3 (4.5-10.0)
[2021-09-04 05:50] LABS: INR 1.2; Partial Thromboplastin Time 27.5 SECONDS (22.3-36.8); Prothrombin Time 15.3 Seconds (11.1-14.7)
[2021-09-04] MEDS: HYDROCORTISONE SODIUM SUCCINATE 100 MG/2 ML VIAL IV PUSH ×3 (05:50→21:13)
[2021-09-04] MEDS: CENTRAL LINE FLUSH 10 ML IV PUSH ×6 (05:51→21:13)
[2021-09-04 05:52] LABS: Alveolar/Arterial O2 Gradient 118.9 mmHg; Base Excess ABG -3.1 mEq/l (+/-2.0); Carboxyhemoglobin 0.3 % THb (0-2.0); Fractional Inspired Oxygen 45 %; HCO3 ABG 19.4 mEq/l (22.0-26.0); Methemoglobin ABG 0.5 %THb (0-1.5); Oxygen Content ABG 11.6 %vol (16.0-22.0); Oxygen Saturation ABG 99.3 % (95.0-100.0); Oxyhemoglobin 97.2 % THb (90.0-100.0); PCO2 ABG 25.6 mmHg (35.0-45.0); PO2 ABG 172.8 mmHg (80.0-100.0); PO2 FiO2 Ratio Arterial Blood 3.84 %; Total Hemoglobin 8.2 g/dL (12.0-18.0); pH ABG 7.497 (7.350-7.450)
[2021-09-04 05:54] LABS: Arterial Blood Gas Vent Mode CMV; Arterial Blood Gas Ventilator rate 24 /MIN; Device VENTILATOR; Modified Allen's Test Pass; Site Drawn LEFT RADIAL
[2021-09-04 05:55] LABS: Arterial Blood Gas PEEP 5 cmH2O; Arterial Blood Gas Tidal Volume 400 ml
[2021-09-04 06:01] LABS: Alanine Aminotransferase 534 U/L (4-35); Albumin Level 2.9 g/dL (3.5-5.1); Alkaline Phosphatase 66 U/L (38-126); Anion Gap 11 mmol/L (8-16); Aspartate Amino Transferase 226 U/L (14-36); Bilirubin,Total 0.8 mg/dL (0.2-1.3); Blood Urea Nitrogen 96 mg/dL (7-17); Calcium 8.2 mg/dL (8.4-10.2); Carbon Dioxide 23 mmol/L (22-30); Chloride 93 mmol/L (98-107); Estimated CRCL calculation 10 ml/min; Estimated Glomerular Filt Rate 5; Glucose 121 mg/dL (65-110); Potassium 4.2 mmol/L (3.4-5.0); Sodium 127 mmol/L (137-145)
--- NOTE | 2021-09-04 07:05 | WPDUROPN2 ---
Progress Note: A&P Assessment and Plan (1) JERRY (acute kidney injury): Code(s): N17.9 - Acute kidney failure, unspecified Status: Acute (2) Bilateral hydronephrosis: Code(s): N13.30 - Unspecified hydronephrosis Status: Acute Assessment and Plan: s/p B PCN tube placement yesterday for B hydro due to pelvic hematoma - continue nephrostomy tubes and castaneda for now - minimal UOP with rising Cr. Patient's tract is currently maximally drained with castaneda and PCN tubes to alleviate any obstructive component to her JERRY. Will defer to nephrology for ongoing management of JERRY in setting of recent cardiac arrest and levophed requirement; may require HD but will defer to nephrology. 09/04/21 Continues to have some, but minimal, urine output via both PCN tubes and urethral catheter. Subjective Subjective Date/Time Seen: 09/04/21 07:05 Intubated Review of Systems Review of Systems: ROS unobtainable: Yes unobtainable due to endotracheal tube Exam Urinary Catheter: Urinary Catheter: patent and draining Objective Data Vital Signs Vital Signs: Vital Signs - 24 hr 09/03/21 08:00 09/03/21 08:30 09/03/21 08:40 Temperature 97.6 F Pulse Rate 97 75 73 Respiratory Rate 24 H 24 H Blood Pressure 121/65 Pulse Oximetry 96 94 09/03/21 08:58 09/03/21 09:00 09/03/21 10:00 Temperature Pulse Rate 75 69 Respiratory Rate 24 H 24 H 24 H Blood Pressure 107/61 Pulse Oximetry 95 09/03/21 12:00 09/03/21 12:04 09/03/21 14:00 Temperature 98.2 F Pulse Rate 58 L 57 L 58 L Respiratory Rate 24 H 24 H Blood Pressure 128/72 100/75 Pulse Oximetry 98 98 96 09/03/21 15:14 09/03/21 16:00 09/03/21 18:00 Temperature 98.8 F Pulse Rate 104 H 55 L 110 H Respiratory Rate 24 H 26 H Blood Pressure 131/71 112/67 Pulse Oximetry 98 98 96 09/03/21 20:00 09/03/21 20:17 09/03/21 22:00 Temperature 97.5 F L Pulse Rate 121 H 119 H 152 H Respiratory Rate 24 H 30 H Blood Pressure 150/70 H 159/77 H Pulse Oximetry 98 97 97 09/03/21 22:16 09/03/21 22:18 09/03/21 23:00 Temperature Pulse Rate 152 H 152 H 76 Respiratory Rate 30 H 30 H 24 H Blood Pressure Pulse Oximetry 96 09/03/21 23:19 09/04/21 00:00 09/04/21 01:38 Temperature 97.5 F L 97.6 F Pulse Rate 72 72 98 Respiratory Rate 24 H 24 H 24 H Blood Pressure 85/51 L 118/62 100/52 L Pulse Oximetry 96 98 97 09/04/21 01:49 09/04/21 01:50 09/04/21 02:00 Temperature 97.5 F L 97.5 F L 97.4 F L Pulse Rate 91 96 71 Respiratory Rate 24 H 24 H 24 H Blood Pressure 102/51 L 102/51 L 89/52 L Pulse Oximetry 97 97 97 09/04/21 02:12 09/04/21 02:50 09/04/21 02:54 Temperature 97.5 F L 97.4 F L Pulse Rate 72 72 67 Respiratory Rate 24 H 24 H Blood Pressure 89/52 L 101/55 L Pulse Oximetry 97 97 97 09/04/21 03:41 09/04/21 03:48 09/04/21 04:00 Temperature 97.4 F L 97.4 F L Pulse Rate 70 66 121 H Respiratory Rate 24 H 24 H 24 H Blood Pressure 104/55 L 101/55 L Pulse Oximetry 96 98 09/04/21 05:12 09/04/21 06:00 Temperature 97.4 F L Pulse Rate 78 62 Respiratory Rate 24 H Blood Pressure 97/56 L Pulse Oximetry 96 96 Intake/Output Intake/Output: Intake & Output 09/01/21 09/02/21 09/03/21 09/04/21 23:59 23:59 23:59 23:59 Intake Total 3932.75 2430 2240 1098 Output Total 50 60 1200 140 Balance 3882.75 2370 1040 958 Meds/Results Medications: Active Medications Generic Name Dose Route Start Last Admin Trade Name Freq PRN Reason Stop Dose Admin Albuterol 1 puff 08/22/21 03:56 Albuterol Sulfate (*Sp) Inhaler INHALATION Q4H PRN shortness of breath or wheezing Bupropion HCl 150 mg 08/22/21 09:00 08/30/21 22:23 Bupropion Hcl Sr (12 Hr) 150 Mg Tab PO Not Given Q12HR SIXTO Calcium Polycarbophil 1,250 mg 08/22/21 09:00 08/30/21 09:39 Calcium Polycarbophil 625 Mg Tablet PO 1,250 mg DAILY SIXTO Administration Dextrose 12.5 gm 08/31/21 08:30 Dextrose 50% 25 G
[2021-09-04 08:22] LABS: Glucose Point of Care 99 mg/dl (65-105)
[2021-09-04] MEDS: LIDOCAINE 5% PATCH 1 PATCH TRANSDERM (09:03)
[2021-09-04] MEDS: MINERAL OIL/WHITE PETROLATUM OINTMENT 1 APPLIC EACH EYE ×2 (09:03→20:27)
[2021-09-04] MEDS: PROPOFOL IV EMULSION 100 ML 7.43 MG IV CONT (09:22)
--- NOTE | 2021-09-04 09:43 | WPDINTPN ---
Progress Note: A&P Assessment and Plan (1) Anemia associated with acute blood loss: Code(s): D62 - Acute posthemorrhagic anemia Status: Acute Assessment and Plan: Patient initially received 4 units of PRBC, 2 units of FFP, 1 unit of cryo. 08/31 2 units of PRBC and 4 units of FFP were given. Patient was also given vitamin K. Hospital does not have andexanet and Kcentra not given due to high risk of new or worsening of her current thrombosis as patient already has PE and and also has COVID-19. Also her last dose of Eliquis was more than 24 hours ago 09/01 2 units of PRBC, DDAVP, tranexamic acid was given 09/02 1 unit of PRBC given 09/03 1 unit of PRBC given overnight Her hemoglobin continues to trend down but very slowly. Continue monitoring and transfuse as needed Monitor coags which are in acceptable range at this time CT 08/30 IMPRESSION: 1. Large hematoma in right pelvis extending into the peritoneum with two foci of active extravasation of contrast. 2. Hematomas in the rectus abdominis muscles, right worse than left. 3. Splenic infarcts. Small volume of perisplenic ascites. 4. Diffuse lung disease, consistent with COVID-[address] abdomen pelvis 09/02 3. Large volume of extraperitoneal hematoma in the pelvis centered to the right of midline, mildly worsened from 08/30/21. Moderate volume of hemoperitoneum, worsened from 08/30/21. 4. Moderate bilateral hydronephrosis and hydroureter secondary to mass effect from the pelvic hematoma, worsened from 08/30/21. 5. Hematomas in the rectus abdominis muscles, right worse than left, stable from 08/30/21. 6. Splenic infarcts again seen. 08/31 I wanted to to transfer patient to a facility where patient can get angiogram and possible embolization if ongoing bleed but due to current COVID 19 pandemic there are no ICU beds available. I called [facility] including [facility] and they did not have any ICU bed available in any of the 6 hospitals. I gave them patient information and they will call me if a bed opens up. Hospitalist provider called [facility], [facility] to see if they have any bed available General surgery was consulted but no surgical options at this time 09/01 I called [facility], [facility] and [facility] again and no beds available 09/02 patient remains on wait list at [facility] At this point the goal is to maintain coags in acceptable range, transfuse blood products to maintain adequate hemoglobin level and hopefully the bleeding will stop (2) Hemorrhagic shock: Code(s): R57.8 - Other shock Status: Acute Assessment and Plan: Secondary to blood loss and possibly sepsis Improved as patient is now off of vasopressors Monitor closely Patient has received significant amount of volume. Hold further IV fluids and only administer blood products as needed (3) Sepsis: Code(s): A41.9 - Sepsis, unspecified organism Status: Acute Assessment and Plan: Urine blood cultures have been sent Patient is on empiric cefepime vancomycin was discontinued as cultures remain negative due to impaired renal function (4) Pulmonary embolism: Qualifiers: Pulmonary embolism type: unspecified Chronicity: acute Acute cor pulmonale presence: without acute cor pulmonale Qualified Code(s): I26.99 - Other pulmonary embolism without acute cor pulmonale Code(s): I26.99 - Other pulmonary embolism without acute cor pulmonale Status: Acute Assessment and Plan: Currently off of anticoagulation secondary to hemorrhagic shock. Not a candidate for anticoagulation at this time Checked lower extremity Dopplers for DVT and were negative (5) JERRY (acute kidney injury): Code(s): N17.9 - Acute kidney failure, unspecified Status: Acute Assessment and Plan: Likely secondary to shock, contrast for CT and possible obstruction Renal US IMPRESSION: 1. Mild bilateral hydroureteronephrosis. 2. Large pelvic hematoma. 3. Small amount of perih
--- NOTE | 2021-09-04 10:11 | PM.PNGS ---
Progress Note: A&P Assessment and Plan (1) Hemorrhagic shock: Code(s): R57.8 - Other shock Status: Acute Assessment and Plan: stable, slow drift in H/H, cont to transfuse as needed, awaiting transfer to tertiary care facility, off pressors (2) Sepsis: Code(s): A41.9 - Sepsis, unspecified organism Status: Acute Assessment and Plan: off pressors, mgmt per audio visual production specialist Subjective Subjective Date/Time Seen: 09/04/21 10:11 no acute issues, off pressors Review of Systems Review of Systems: ROS unobtainable: Yes unobtainable due to endotracheal tube Exam Const: Nutritional Appearance: obese Other: intubated, sedated Resp: Auscultation: clear to auscultation bilaterally Cardio: Rate: regular rate Rhythm: regular rhythm GI: Inspection: normal to inspection and distended GI Palp: Yes Soft to palpation Objective Data Vital Signs Vital Signs: Vital Signs - 24 hr 09/03/21 12:00 09/03/21 12:04 09/03/21 14:00 Temperature 36.8 C Pulse Rate 58 L 57 L 58 L Respiratory Rate 24 H 24 H Blood Pressure 128/72 100/75 Pulse Oximetry 98 98 96 09/03/21 15:14 09/03/21 16:00 09/03/21 18:00 Temperature 37.1 C Pulse Rate 104 H 55 L 110 H Respiratory Rate 24 H 26 H Blood Pressure 131/71 112/67 Pulse Oximetry 98 98 96 09/03/21 20:00 09/03/21 20:17 09/03/21 22:00 Temperature 36.4 C L Pulse Rate 121 H 119 H 152 H Respiratory Rate 24 H 30 H Blood Pressure 150/70 H 159/77 H Pulse Oximetry 98 97 97 09/03/21 22:16 09/03/21 22:18 09/03/21 23:00 Temperature Pulse Rate 152 H 152 H 76 Respiratory Rate 30 H 30 H 24 H Blood Pressure Pulse Oximetry 96 09/03/21 23:19 09/04/21 00:00 09/04/21 01:38 Temperature 36.4 C L 36.4 C Pulse Rate 72 72 98 Respiratory Rate 24 H 24 H 24 H Blood Pressure 85/51 L 118/62 100/52 L Pulse Oximetry 96 98 97 09/04/21 01:49 09/04/21 01:50 09/04/21 02:00 Temperature 36.4 C L 36.4 C L 36.3 C L Pulse Rate 91 96 71 Respiratory Rate 24 H 24 H 24 H Blood Pressure 102/51 L 102/51 L 89/52 L Pulse Oximetry 97 97 97 09/04/21 02:12 09/04/21 02:50 09/04/21 02:54 Temperature 36.4 C L 36.3 C L Pulse Rate 72 72 67 Respiratory Rate 24 H 24 H Blood Pressure 89/52 L 101/55 L Pulse Oximetry 97 97 97 09/04/21 03:41 09/04/21 03:48 09/04/21 04:00 Temperature 36.3 C L 36.3 C L Pulse Rate 70 66 121 H Respiratory Rate 24 H 24 H 24 H Blood Pressure 104/55 L 101/55 L Pulse Oximetry 96 98 09/04/21 05:12 09/04/21 06:00 09/04/21 08:00 Temperature 36.3 C L 36.1 C L Pulse Rate 78 62 62 Respiratory Rate 24 H 24 H Blood Pressure 97/56 L 148/71 H Pulse Oximetry 96 96 98 09/04/21 08:01 09/04/21 08:56 09/04/21 09:04 Temperature Pulse Rate 62 143 H 143 H Respiratory Rate 24 H 28 H Blood Pressure Pulse Oximetry 94 09/04/21 09:22 Temperature Pulse Rate 88 Respiratory Rate 26 H Blood Pressure Pulse Oximetry Intake/Output Intake/Output: Intake & Output 09/01/21 09/02/21 09/03/21 09/04/21 23:59 23:59 23:59 23:59 Intake Total 3932.75 2430 2240 1248 Output Total 50 60 1200 140 Balance 3882.75 2370 1040 1108 Meds/Results Medications: Active Medications Generic Name Dose Route Start Last Admin Trade Name Freq PRN Reason Stop Dose Admin Albuterol 1 puff 08/22/21 03:56 Albuterol Sulfate (*Sp) Inhaler INHALATION Q4H PRN shortness of breath or wheezing Bupropion HCl 150 mg 08/22/21 09:00 08/30/21 22:23 Bupropion Hcl Sr (12 Hr) 150 Mg Tab PO Not Given Q12HR SIXTO Calcium Polycarbophil 1,250 mg 08/22/21 09:00 08/30/21 09:39 Calcium Polycarbophil 625 Mg Tablet PO 1,250 mg DAILY SIXTO Administration Dextrose 12.5 gm 08/31/21 08:30 Dextrose 50% 25 Gm/50 Ml Syringe IV PUSH PRN PRN Hypoglycemia Protocol Glucagon 1 mg 08/31/21 08:30 Glucagon For Inj 1 Mg Vial IM PRN PRN Hypoglycemia Protocol Glucose 15 gm 08/31/21 08:30
--- NOTE | 2021-09-04 12:10 | P.PNNP_ITS ---
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/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 - acceptable electrolytes/volume status currently * will watch for another 24 hours since off all pressors therapy to see what her kidney function does * follow trend of repeat labs and UOP (2) Bilateral hydronephrosis: Code(s): N13.30 - Unspecified hydronephrosis Status: Acute Assessment and Plan: * as noted by renal ultrasound * CT scan (09/02/20) with moderate bilateral hydronephrosis and hydroureter secondary to mass effect from the pelvic hematoma, worsened from 08/30/21 * s/p bilateral CT-guided nephrostomy tube placement on 09/02/20 * Urology following (3) Anemia associated with acute blood loss: Code(s): D62 - Acute posthemorrhagic anemia Status: Acute Assessment and Plan: * as noted by recent CT scan: * large hematoma in right pelvis extending into the peritoneum with two foci of active extravasation of contrast; hematomas in the rectus abdominis muscles, right worse than left * s/p mulitple blood products (PRBC, FFP, cryo) as well as DDAVP and tranexamic acid * s/p Vitamin K as well given coagulopathy (andexanet unavailable here) * follow H/H and coags * option to transfer to another facility for possible angiogram and possible embolization if ongoing bleed unavailable to no ICU bed available at other hospitals due to COVID pandemic (4) Hemorrhagic shock: Code(s): R57.8 - Other shock Status: Acute Assessment and Plan: * secondary to blood loss (see #3) * continue transfusion as needed * off vasopressor therapy * s/p aggressive IVF resuscitation * follow trend of hemodynamics (5) Acute respiratory failure with hypoxia: Code(s): J96.01 - Acute respiratory failure with hypoxia Status: Acute Assessment and Plan: * due to cardiac arrest, COVID pneumonia, and pulmonary embolism * continue ventilator support * weaning when more stable (6) Pneumonia due to COVID-19 virus: Code(s): U07.1 - COVID-19; J12.82 - Pneumonia due to coronavirus disease 2019 Status: Acute Assessment and Plan: * positive by recent testing * on steroids (more so for shock than COVID at this time) * s/p convalscent plasam on 08/22/21 * s/p remdesivir but stopped due to elevated LFTs and renal dysfunction * continue supportive therapy (7) Pulmonary embolism: Qualifiers: Pulmonary embolism type: unspecified Chronicity: acute Acute cor pulmonale presence: without acute cor pulmonale Qualified Code(s): I26.99 - Other pulmonary embolism without acute cor pulmonale Code(s): I26.99 - Other pulmonary embolism without acute cor pulmonale Status: Acute Assessment and Plan: * as diagnosed by CT angiogram of chest * off all anticoagulation due to #3 and #4 (8) Encephalopathy: Code(s): G93.40 - Encephalopathy, unspecified Status: Acute Assessment and Plan: * due toxic metabolic issues
--- NOTE | 2021-09-04 12:10 | PM.PNNEP ---
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/dialysis - acceptable electrolytes/volume status currently will watch for another 24 hours since off all pressors therapy to see what her kidney function does follow trend of repeat labs and UOP (2) Bilateral hydronephrosis: Code(s): N13.30 - Unspecified hydronephrosis Status: Acute Assessment and Plan: as noted by renal ultrasound CT scan (09/02/20) with moderate bilateral hydronephrosis and hydroureter secondary to mass effect from the pelvic hematoma, worsened from 08/30/[address]-guided nephrostomy tube placement on 09/02/20 Urology following (3) Anemia associated with acute blood loss: Code(s): D62 - Acute posthemorrhagic anemia Status: Acute Assessment and Plan: as noted by recent CT scan: large hematoma in right pelvis extending into the peritoneum with two foci of active extravasation of contrast; hematomas in the rectus abdominis muscles, right worse than left s/p mulitple blood products (PRBC, FFP, cryo) as well as DDAVP and tranexamic acid s/p Vitamin K as well given coagulopathy (andexanet unavailable here) follow H/H and coags option to transfer to another facility for possible angiogram and possible embolization if ongoing bleed unavailable to no ICU bed available at other hospitals due to COVID pandemic (4) Hemorrhagic shock: Code(s): R57.8 - Other shock Status: Acute Assessment and Plan: secondary to blood loss (see #3) continue transfusion as needed off vasopressor therapy s/p aggressive IVF resuscitation follow trend of hemodynamics (5) Acute respiratory failure with hypoxia: Code(s): J96.01 - Acute respiratory failure with hypoxia Status: Acute Assessment and Plan: due to cardiac arrest, COVID pneumonia, and pulmonary embolism continue ventilator support weaning when more stable (6) Pneumonia due to COVID-19 virus: Code(s): U07.1 - COVID-19; J12.82 - Pneumonia due to coronavirus disease 2019 Status: Acute Assessment and Plan: positive by recent testing on steroids (more so for shock than COVID at this time) s/p convalscent plasam on 08/22/21 s/p remdesivir but stopped due to elevated LFTs and renal dysfunction continue supportive therapy (7) Pulmonary embolism: Qualifiers: Pulmonary embolism type: unspecified Chronicity: acute Acute cor pulmonale presence: without acute cor pulmonale Qualified Code(s): I26.99 - Other pulmonary embolism without acute cor pulmonale Code(s): I26.99 - Other pulmonary embolism without acute cor pulmonale Status: Acute Assessment and Plan: as diagnosed by CT angiogram of chest off all anticoagulation due to #3 and #4 (8) Encephalopathy: Code(s): G93.40 - Encephalopathy, unspecified Status: Acute Assessment and Plan: due toxic metabolic issues but possible anoxic brain injury due to cardiac arrest CT of head unremarkable difficult to do full assessment given her other above medical issues will likely need MRI at some point Discussed case with Dr. Mclaughlin earlier today. Will continue to follow. Subjective Date/time seen: 09/04/21 12:10 Remains hemodynamically stable without the need for vasopressor support at this time (levophed weaned off); remains on ventilator support and currently intub
--- NOTE | 2021-09-04 12:22 | PCFNICU ---
ICU Rounding Note: Pt current nutrition is Nepro at 45 ml/hr. Last recorded weight is 124 kg, up from 100.3 kg on admit. Bowel Motility:+BM reported 09/04 Labs Reviewed:Glu 121,Cr 8.0,BUN 96, GFR 5, Na 127, Alb 2.9, Hgb 7.6,Hct 22.5 Meds Noted:Versed, Fentanyl, Levophed, Vancomycin, Vasopressin, Maxipime, Propofol 10 vlge=936 kcals. Skin: WNL Additional Notes: Patient remains on mechanical vent. Spoke with nursing today, tube feedings are currently on hold due to high residuals reported of 350 ml. Plans for tube feedings to be restarted today of Nepro. Propofol is providing an additional 196 kcals. Agree with diet orders at this time. RD will continue to monitor propofol titration for any tube feeding rate changes. Following daily in ICU rounds. Will monitor every Saturday and Saturday.
[2021-09-04 12:46] LABS: Glucose Point of Care 131 mg/dl (65-105)
[2021-09-04 15:04] LABS: Hematocrit 22.3 % (37.0-47.0); Hemoglobin 7.7 g/dL (12.0-15.0); Mean Corpuscular HGB Conc 34.5 g/dl (32-36); Mean Corpuscular Hemoglobin 30.1 pg (26-34); Mean Corpuscular Volume 87.1 fl (80-100); Mean Platelet Volume 10.3 fl (7.4-10.4); Platelet Count Result 192 k/mm3 (150-375); Red Blood Count 2.56 M/mm3 (4.2-5.4); Red Cell Distribution Width 14.8 % (11.5-14.5); White Blood Count 16.4 K/mm3 (4.5-10.0)
[2021-09-04 16:11] LABS: Glucose Point of Care 98 mg/dl (65-105)
[2021-09-04] MEDS: PROPOFOL IV EMULSION 100 ML 14.86 MG IV CONT (16:56)
[2021-09-04 20:46] LABS: Glucose Point of Care 121 mg/dl (65-105)
[2021-09-04 21:59] LABS: Hemoglobin 7.1 g/dL (12.0-15.0); Mean Corpuscular Hemoglobin 30.2 pg (26-34); Mean Corpuscular Volume 88.9 fl (80-100); Mean Platelet Volume 10.1 fl (7.4-10.4); Platelet Count Result 171 k/mm3 (150-375); Red Blood Count 2.35 M/mm3 (4.2-5.4); Red Cell Distribution Width 15.1 % (11.5-14.5); White Blood Count 13.5 K/mm3 (4.5-10.0)
[2021-09-04 22:03] LABS: Hematocrit 20.9 % (37.0-47.0)
[2021-09-04] MEDS: PROPOFOL IV EMULSION 100 ML 11.14 MG IV CONT (23:14)
[2021-09-05] VITALS (51 sets, daily range): BP systolic 94–165; BP diastolic 54–97; PULSE 53–132; RESP 17–30; TEMP 35.3–36.6; O2SAT 92–99
--- NOTE | 2021-09-05 03:47 | PC.NURSE ---
0130 complete bed bath given. tolerated well. vss
--- NOTE | 2021-09-05 03:48 | PC.NURSE ---
0330 O2 saturations down to 88%. suctioned a small blood clot from ETT. no change in saturations. Oxygen increased to 50% fio2
[2021-09-05 05:40] LABS: Alveolar/Arterial O2 Gradient 231.2 mmHg; Base Excess ABG -4.8 mEq/l (+/-2.0); Carboxyhemoglobin 0.2 % THb (0-2.0); Fractional Inspired Oxygen 50 %; HCO3 ABG 19.4 mEq/l (22.0-26.0); Methemoglobin ABG 0.5 %THb (0-1.5); Oxygen Content ABG 10.5 %vol (16.0-22.0); Oxyhemoglobin 94.7 % THb (90.0-100.0); PCO2 ABG 31.8 mmHg (35.0-45.0); PO2 ABG 89.5 mmHg (80.0-100.0); PO2 FiO2 Ratio Arterial Blood 1.79 %; Reduced Hemoglobin 4.6 %THb (0-5.0); pH ABG 7.403 (7.350-7.450)
[2021-09-05 05:42] LABS: Device VENTILATOR; Modified Allen's Test Unable to perform; Site Drawn RIGHT RADIAL; Total Hemoglobin 7.8 g/dL (12.0-18.0)
[2021-09-05 05:43] LABS: Arterial Blood Gas PEEP 5 cmH2O; Arterial Blood Gas Tidal Volume 400 ml; Arterial Blood Gas Vent Mode CMV; Arterial Blood Gas Ventilator rate 24 /MIN
[2021-09-05] MEDS: PROPOFOL IV EMULSION 100 ML 18.57 MG IV CONT ×2 (05:54→14:24)
[2021-09-05] MEDS: CENTRAL LINE FLUSH 10 ML IV PUSH ×3 (05:55→18:13)
[2021-09-05 05:56] LABS: Basophils Percent Auto 0.3 % (0.2-1.2); Eosinophils Percent Auto 0.2 % (0-4.4); Hemoglobin 7.1 g/dL (12.0-15.0); Immature Granulocyte Absolute 0.59 K/mm3 (0.00-0.031); Immature Granulocyte Percent A 4.2 % (0-0.5); Lymphocytes Absolute Auto 1.01 K/mm3 (0.9-3.2); Lymphocytes Percent Auto 7.2 % (18.3-44.2); Mean Corpuscular HGB Conc 34.3 g/dl (32-36); Mean Corpuscular Hemoglobin 30.7 pg (26-34); Mean Corpuscular Volume 89.6 fl (80-100); Mean Platelet Volume 10.3 fl (7.4-10.4); Monocytes Absolute Auto 1.2 K/mm3 (0.1-0.6); Monocytes Percent Auto 8.7 % (2.6-8.5); Neutrophils Absolute Auto 11.2 K/mm3 (1.3-6.7); Neutrophils Percent Auto 79.4 % (45.5-73.1); Nucleated Red Blood Cells Perc 0.3 % (0.0-0.2); Platelet Count Result 170 k/mm3 (150-375); Red Blood Count 2.31 M/mm3 (4.2-5.4); White Blood Count 14.1 K/mm3 (4.5-10.0)
[2021-09-05] MEDS: HYDROCORTISONE SODIUM SUCCINATE 100 MG/2 ML VIAL IV PUSH ×3 (05:56→21:01)
[2021-09-05 06:06] LABS: INR 1.3; Partial Thromboplastin Time 29.9 SECONDS (22.3-36.8); Prothrombin Time 16.2 Seconds (11.1-14.7)
[2021-09-05 06:07] LABS: Glucose Point of Care 119 mg/dl (65-105)
[2021-09-05 06:10] LABS: Alanine Aminotransferase 360 U/L (4-35); Albumin Level 2.8 g/dL (3.5-5.1); Alkaline Phosphatase 59 U/L (38-126); Anion Gap 14 mmol/L (8-16); Aspartate Amino Transferase 120 U/L (14-36); Bilirubin,Total 0.8 mg/dL (0.2-1.3); Blood Urea Nitrogen 110 mg/dL (7-17); Calcium 7.7 mg/dL (8.4-10.2); Carbon Dioxide 21 mmol/L (22-30); Chloride 94 mmol/L (98-107); Estimated CRCL calculation 9 ml/min; Estimated Glomerular Filt Rate 5; Glucose 120 mg/dL (65-110); Potassium 3.7 mmol/L (3.4-5.0); Sodium 129 mmol/L (137-145); Triglycerides 47 mg/dL (<150)
[2021-09-05 07:32] LABS: Hematocrit 20.7 % (37.0-47.0)
[2021-09-05] MEDS: FENTANYL 2,500MCG/NS250ML(*CRX 2,500 MCG/250 ML BAG 12.5 MCG IV CONT (08:43)
[2021-09-05] MEDS: MINERAL OIL/WHITE PETROLATUM OINTMENT 1 APPLIC EACH EYE ×2 (08:45→21:01)
--- NOTE | 2021-09-05 10:06 | PM.PNGS ---
Progress Note: A&P Assessment and Plan (1) Anemia associated with acute blood loss: Code(s): D62 - Acute posthemorrhagic anemia Status: Acute Assessment and Plan: stable, cont to transfuse as needed, awaiting transfer, will likely start emergent HD today Subjective Subjective Date/Time Seen: 09/05/21 10:06 no acute changes, still awaiting transfer Review of Systems Review of Systems: ROS unobtainable: Yes unobtainable due to endotracheal tube Exam Const: Other: intubated, sedated Resp: Auscultation: diminished lung sounds Cardio: Rate: regular rate Rhythm: regular rhythm GI: Inspection: distended and no incisions GI Palp: Yes Soft to palpation Objective Data Vital Signs Vital Signs: Vital Signs - 24 hr 09/04/21 10:15 09/04/21 11:13 09/04/21 12:00 Temperature 36.3 C L Pulse Rate 132 H 76 73 Respiratory Rate 26 H 24 H Blood Pressure 99/73 L Pulse Oximetry 95 96 09/04/21 12:27 09/04/21 14:00 09/04/21 14:26 Temperature Pulse Rate 86 106 H 105 H Respiratory Rate 24 H 29 H Blood Pressure 131/79 Pulse Oximetry 97 99 09/04/21 14:53 09/04/21 16:00 09/04/21 16:44 Temperature 36.4 C L Pulse Rate 103 H 115 H 115 H Respiratory Rate 30 H 30 H 30 H Blood Pressure 153/95 H Pulse Oximetry 97 09/04/21 16:46 09/04/21 16:56 09/04/21 17:01 Temperature Pulse Rate 115 H 71 68 Respiratory Rate 30 H 30 H Blood Pressure Pulse Oximetry 96 09/04/21 18:00 09/04/21 18:31 09/04/21 18:32 Temperature Pulse Rate 74 77 78 Respiratory Rate 24 H 30 H 30 H Blood Pressure 90/57 L Pulse Oximetry 96 09/04/21 20:00 09/04/21 20:53 09/04/21 21:20 Temperature 36.4 C L Pulse Rate 74 104 H 90 Respiratory Rate 30 H Blood Pressure 99/63 L Pulse Oximetry 96 98 98 09/04/21 22:00 09/04/21 23:14 09/04/21 23:35 Temperature Pulse Rate 68 88 77 Respiratory Rate 24 H 24 H Blood Pressure 97/58 L Pulse Oximetry 96 97 09/04/21 23:57 09/05/21 00:00 09/05/21 02:00 Temperature 36.2 C L Pulse Rate 66 64 103 H Respiratory Rate 24 H 24 H Blood Pressure 101/60 141/73 H Pulse Oximetry 96 99 09/05/21 02:08 09/05/21 03:30 09/05/21 03:51 Temperature Pulse Rate 94 110 H 61 Respiratory Rate 30 H Blood Pressure Pulse Oximetry 95 09/05/21 04:00 09/05/21 05:24 09/05/21 05:54 Temperature 36.2 C L Pulse Rate 62 73 75 Respiratory Rate 24 H 24 H Blood Pressure 94/54 L Pulse Oximetry 93 96 09/05/21 06:00 09/05/21 08:43 Temperature Pulse Rate 62 75 Respiratory Rate 24 H 24 H Blood Pressure 109/61 Pulse Oximetry 94 Intake/Output Intake/Output: Intake & Output 09/02/21 09/03/21 09/04/21 09/05/21 23:59 23:59 23:59 23:59 Intake Total 2430 2240 2010 350 Output Total 60 1200 655 945 Balance 2370 1040 1104 -375 Meds/Results Medications: Active Medications Generic Name Dose Route Start Last Admin Trade Name Freq PRN Reason Stop Dose Admin Albuterol 1 puff 08/22/21 03:56 Albuterol Sulfate (*Sp) Inhaler INHALATION Q4H PRN shortness of breath or wheezing Bupropion HCl 150 mg 08/22/21 09:00 08/30/21 22:23 Bupropion Hcl Sr (12 Hr) 150 Mg Tab PO Not Given Q12HR SIXTO Calcium Polycarbophil 1,250 mg 08/22/21 09:00 08/30/21 09:39 Calcium Polycarbophil 625 Mg Tablet PO 1,250 mg DAILY SIXTO Administration Dextrose 12.5 gm 08/31/21 08:30 Dextrose 50% 25 Gm/50 Ml Syringe IV PUSH PRN PRN Hypoglycemia Protocol Epoetin Arpan-epbx 10,000 units 09/05/21 21:31 Epoetin Arpan-Epbx 10,000 Units/Ml Vial IV PUSH 09/05/21 21:32 ONCE ONE Glucagon 1 mg 08/31/21 08:30 Glucagon For Inj 1 Mg Vial IM PRN PRN Hypoglycemia Protocol Glucose 15 gm 08/31/21 08:30 Glucose Oral Gel 15 Gm Of Glucse In 37.5 Gm Tube PO PRN PRN Hypoglycemia Protocol Hydrocortisone Sodium Succinate 100 mg 08/31/21 06:00 09/05/21 05:56 Hydrocor
[2021-09-05 10:49] LABS: Mean Corpuscular HGB Conc 33.8 g/dl (32-36); Mean Corpuscular Hemoglobin 30.1 pg (26-34); Mean Corpuscular Volume 89.1 fl (80-100); Mean Platelet Volume 10.5 fl (7.4-10.4); Platelet Count Result 170 k/mm3 (150-375); Red Blood Count 2.29 M/mm3 (4.2-5.4); Red Cell Distribution Width 15.1 % (11.5-14.5); White Blood Count 14.5 K/mm3 (4.5-10.0)
[2021-09-05 11:14] LABS: Hematocrit 20.4 % (37.0-47.0); Hemoglobin 6.9 g/dL (12.0-15.0)
--- NOTE | 2021-09-05 11:31 | PCNFU ---
Nutrition Follow-Up Complete: Inadequate Oral Intake as related to mechanical vent as evidenced by NPO. Goal: Meet estimated nutritional needs Patient is progressing towards goal. We will continue current goal. Pt current nutrition is Nepro at 45 ml/hr over 22 hours. Last recorded weight is 123.7 kg, up from 100.3 kg on admit. Bowel Motility:Fecal containment catheter. Labs Reviewed: Glu 120, BUN 110, Cr 9.0,GFR 5, Alb 2.8,Hgb 7.1,Na 129 Meds Noted:Versed, Fentanyl, Levophed, Vancomycin, Vasopressin, Maxipime, Propofol 25 mics= 490 kcals. Skin: WNL Additional Notes: Patient remains on mechanical vent and tube feedings of Nepro at 45 ml/hr over 22 hours and tolerating. Plans to decrease tube feeding rate after dialysis today to 40 ml/hr due to increase in propofol. This will provide 1584 kcals/71 gms protein/616 ml water. Propofol is providing an additional 490 kcals. Agree with current tube feeding rate at this time. 30 ml free water flush q 4 hours. Will continue to monitor propofol titration for any tube feeding rate modifications. Will follow in ICU rounds and reassessing every Saturday and Saturday.
--- NOTE | 2021-09-05 11:34 | WPDINTPN ---
Progress Note: A&P Assessment and Plan (1) Anemia associated with acute blood loss: Code(s): D62 - Acute posthemorrhagic anemia Status: Acute Assessment and Plan: Patient initially received 4 units of PRBC, 2 units of FFP, 1 unit of cryo. 08/31 2 units of PRBC and 4 units of FFP were given. Patient was also given vitamin K. Hospital does not have andexanet and Kcentra not given due to high risk of new or worsening of her current thrombosis as patient already has PE and and also has COVID-19. Also her last dose of Eliquis was more than 24 hours ago 09/01 2 units of PRBC, DDAVP, tranexamic acid was given 09/02 1 unit of PRBC given 09/03 1 unit of PRBC given overnight Her hemoglobin continues to trend down but very slowly. Continue monitoring and transfuse as needed Continue to Monitor coags which are in acceptable range at this time CT 08/30 IMPRESSION: 1. Large hematoma in right pelvis extending into the peritoneum with two foci of active extravasation of contrast. 2. Hematomas in the rectus abdominis muscles, right worse than left. 3. Splenic infarcts. Small volume of perisplenic ascites. 4. Diffuse lung disease, consistent with COVID-[address] abdomen pelvis 09/02 3. Large volume of extraperitoneal hematoma in the pelvis centered to the right of midline, mildly worsened from 08/30/21. Moderate volume of hemoperitoneum, worsened from 08/30/21. 4. Moderate bilateral hydronephrosis and hydroureter secondary to mass effect from the pelvic hematoma, worsened from 08/30/21. 5. Hematomas in the rectus abdominis muscles, right worse than left, stable from 08/30/21. 6. Splenic infarcts again seen. 08/31 I wanted to to transfer patient to a facility where patient can get angiogram and possible embolization if ongoing bleed but due to current COVID 19 pandemic there are no ICU beds available. I called [facility] including [facility] and they did not have any ICU bed available in any of the 6 hospitals. I gave them patient information and they will call me if a bed opens up. Hospitalist provider called [facility] to see if they have any bed available General surgery was consulted but no surgical options at this time 09/01 I called [facility], [facility] and [facility] again and no beds available 09/02 patient remains on wait list at [facility] 09/05 I again confirmed today the patient is on wait list at [facility] and [facility] is still not accepting any transfers At this point the goal is to maintain coags in acceptable range, transfuse blood products to maintain adequate hemoglobin level and hopefully the bleeding will stop. She will need eventually definitive treatment whether vascular and/or surgical for that large hematoma (2) Hemorrhagic shock: Code(s): R57.8 - Other shock Status: Acute Assessment and Plan: Secondary to blood loss and possibly sepsis Improved as patient is now off of vasopressors Monitor closely Patient has received significant amount of volume and is overall volume overloaded. Hold further IV fluids and only administer blood products as needed (3) Sepsis: Code(s): A41.9 - Sepsis, unspecified organism Status: Acute Assessment and Plan: Urine blood cultures have been sent Patient is on empiric cefepime vancomycin was discontinued as cultures remain negative due to impaired renal function (4) Pulmonary embolism: Qualifiers: Pulmonary embolism type: unspecified Chronicity: acute Acute cor pulmonale presence: without acute cor pulmonale Qualified Code(s): I26.99 - Other pulmonary embolism without acute cor pulmonale Code(s): I26.99 - Other pulmonary embolism without acute cor pulmonale Status: Acute Assessment and Plan: Currently off of anticoagulation secondary to hemorrhagic shock. Not a candidate for anticoagulation at this time Checked lower extremity Dopplers for DVT and were negative (5) JERRY (acute kidney injury): Code(s): N17.9 - Acute kid
--- NOTE | 2021-09-05 11:47 | WPDPROCEDUR ---
Procedures Hemodialysis Catheter Placement Left Femoral: Discussed w/ patient and/or surrogate, the non-emergent placement of a hemodialysis catheter, including it's clinincal necessity/indication & associated potential risks & complications.: Yes The patient and/or surrogate understand(s) and acknowledge(s) the need to proceed with hemodialysis catheter insertion as an important element of the patient's clinical management.: Yes Emergently Placed - (Given emergent patient conditions, temporal constraints may not have permitted and aforementioned informed consent.): No Consent: Consent was obtained from patient's by phone HD Catheter Date: 09/05/21 HD Catheter Time: 09:30 Pre-procedural Time-Out was completed immediately before starting the procedure and confirmed: Patient Identification, Site, Procedure, Patient Position and the Availability of Requisite Equipment.: Yes Patient Position: supine Patient Placed on Monitor/Pulse Ox: Yes Provider Prep: mask, sterile gown, sterile gloves, Max. sterile barrier precautions, cap and hand hygiene Hemodialysis Catheter Prep: Chlorhexidine scrub Ultrasound Used for Placement: No Hemodialysis Catheter Inserted: triple Depth of Insertion (cm): 24 Post Procedure X-Ray: other Patient Tolerated Procedure: well Complications: other Additional Comments: Patient had a left femoral central venous catheter and I initially tried to change the catheter to a dialysis catheter over a guidewire. I was able to change the catheter without any difficulty but 1 of the port was not drawing blood adequately. Without suction all ports were draining blood without any difficulty but when suction with the syringe 1 of the ports would not drain blood. I try to reposition catheter and it was positional and working on and off. I replaced the catheter with another 24 cm catheter and had similar issues with the other port. I suspected that it was probably a problem with the site for the catheter tip was hence I change the catheter to a 20 cm dialysis catheter but again catheter was positional with 1 port not drawing easily. I suspected that this would be a issue once patient is put on dialysis hence I aborted the procedure. I removed the catheter altogether and held pressure. Due to large hematoma and pelvis area I suspect there is some alteration of anatomy which may be kinking the catheter as all 3 catheters were having blood come out without any suction from all 3 ports but once suction syringe was applied the ports would not draw blood.
--- NOTE | 2021-09-05 11:51 | WPDPROCEDUR ---
Procedures Hemodialysis Catheter Placement Right IJ: Discussed w/ patient and/or surrogate, the non-emergent placement of a hemodialysis catheter, including it's clinincal necessity/indication & associated potential risks & complications.: Yes The patient and/or surrogate understand(s) and acknowledge(s) the need to proceed with hemodialysis catheter insertion as an important element of the patient's clinical management.: Yes Emergently Placed - (Given emergent patient conditions, temporal constraints may not have permitted and aforementioned informed consent.): No Consent: Consent was obtained from patient's by phone HD Catheter Date: 09/05/21 HD Catheter Time: 10:00 Pre-procedural Time-Out was completed immediately before starting the procedure and confirmed: Patient Identification, Site, Procedure, Patient Position and the Availability of Requisite Equipment.: Yes Patient Position: supine Patient Placed on Monitor/Pulse Ox: Yes Provider Prep: mask, sterile gown, sterile gloves, Max. sterile barrier precautions, cap and hand hygiene Hemodialysis Catheter Prep: Chlorhexidine scrub and sterile full body sheet applied Ultrasound Used for Placement: Yes Hemodialysis Catheter Inserted: double Length (cm): 20 Depth of Insertion (cm): 20 Post Procedure: sutured in place, good blood return, all ports aspirated, flushed, capped, transparent dressing and aseptic technique maintained throughout procedure Post Procedure X-Ray: tip of catheter in good position and no pneumothorax seen Patient Tolerated Procedure: well Complications: none Additional Comments: Chest x-ray reviewed and tip of catheter is in high atrium which would be ideal position for dialysis catheter. Tip is not touching the floor of the atrium and is not in SVC.
--- NOTE | 2021-09-05 12:00 | P.PNNP_ITS ---
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 * follow trend of repeat labs and UOP for potential recovery (2) Bilateral hydronephrosis: Code(s): N13.30 - Unspecified hydronephrosis Status: Acute Assessment and Plan: * as noted by renal ultrasound * CT scan (09/02/20) with moderate bilateral hydronephrosis and hydroureter secondary to mass effect from the pelvic hematoma, worsened from 08/30/21 * s/p bilateral CT-guided nephrostomy tube placement on 09/02/20 * Urology following (3) Anemia associated with acute blood loss: Code(s): D62 - Acute posthemorrhagic anemia Status: Acute Assessment and Plan: * as noted by recent CT scan: * large hematoma in right pelvis extending into the peritoneum with two foci of active extravasation of contrast; hematomas in the rectus abdominis muscles, right worse than left * s/p mulitple blood products (PRBC, FFP, cryo) as well as DDAVP and tranexamic acid * s/p Vitamin K as well given coagulopathy (andexanet unavailable here) * follow H/H and coags * option to transfer to another facility for possible angiogram and possible embolization if ongoing bleed unavailable to no ICU bed available at other hospitals due to COVID pandemic (4) Hemorrhagic shock: Code(s): R57.8 - Other shock Status: Acute Assessment and Plan: * secondary to blood loss (see #3) * continue transfusion as needed * off vasopressor therapy * s/p aggressive IVF resuscitation * follow trend of hemodynamics (5) Acute respiratory failure with hypoxia: Code(s): J96.01 - Acute respiratory failure with hypoxia Status: Acute Assessment and Plan: * due to cardiac arrest, COVID pneumonia, and pulmonary embolism * continue ventilator support * weaning when more stable (6) Pneumonia due to COVID-19 virus: Code(s): U07.1 - COVID-19; J12.82 - Pneumonia due to coronavirus disease 2018 Status: Acute Assessment and Plan: * positive by recent testing * on steroids (more so for shock than COVID at this time) * s/p convalscent plasam on 08/22/21 * s/p remdesivir but stopped due to elevated LFTs and renal dysfunction * continue supportive therapy (7) Pulmonary embolism: Qualifiers: Acute cor pulmonale presence: without acute cor pulmonale Chronicity: acute Pulmonary embolism type: unspecified Qualified Code(s): I26.99 - Other pulmonary embolism without acute cor pulmonale Code(s): I26.99 - Other pulmonary embolism without acute cor pulmonale Status: Acute Assessment and Plan: * as diagnosed by CT angiogram of chest * off all anticoagulation due to #3 and #4 (8) Encephalopathy: Code(s): G93.40 - Encephalopathy, unspecified Status: Acute Assessment and Plan: * due toxic metabolic issues but possible anoxic brain injury due to cardiac arrest * CT of head unremarkable * difficult to do full assessment given
--- NOTE | 2021-09-05 12:00 | PM.PNNEP ---
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 follow trend of repeat labs and UOP for potential recovery (2) Bilateral hydronephrosis: Code(s): N13.30 - Unspecified hydronephrosis Status: Acute Assessment and Plan: as noted by renal ultrasound CT scan (09/02/20) with moderate bilateral hydronephrosis and hydroureter secondary to mass effect from the pelvic hematoma, worsened from 08/30/[address] s[address]-guided nephrostomy tube placement on 09/02/20 Urology following (3) Anemia associated with acute blood loss: Code(s): D62 - Acute posthemorrhagic anemia Status: Acute Assessment and Plan: as noted by recent CT scan: large hematoma in right pelvis extending into the peritoneum with two foci of active extravasation of contrast; hematomas in the rectus abdominis muscles, right worse than left s/p mulitple blood products (PRBC, FFP, cryo) as well as DDAVP and tranexamic acid s/p Vitamin K as well given coagulopathy (andexanet unavailable here) follow H/H and coags option to transfer to another facility for possible angiogram and possible embolization if ongoing bleed unavailable to no ICU bed available at other hospitals due to COVID pandemic (4) Hemorrhagic shock: Code(s): R57.8 - Other shock Status: Acute Assessment and Plan: secondary to blood loss (see #3) continue transfusion as needed off vasopressor therapy s/p aggressive IVF resuscitation follow trend of hemodynamics (5) Acute respiratory failure with hypoxia: Code(s): J96.01 - Acute respiratory failure with hypoxia Status: Acute Assessment and Plan: due to cardiac arrest, COVID pneumonia, and pulmonary embolism continue ventilator support weaning when more stable (6) Pneumonia due to COVID-19 virus: Code(s): U07.1 - COVID-19; J12.82 - Pneumonia due to coronavirus disease 2019 Status: Acute Assessment and Plan: positive by recent testing on steroids (more so for shock than COVID at this time) s/p convalscent plasam on 08/22/21 s/p remdesivir but stopped due to elevated LFTs and renal dysfunction continue supportive therapy (7) Pulmonary embolism: Qualifiers: Acute cor pulmonale presence: without acute cor pulmonale Chronicity: acute Pulmonary embolism type: unspecified Qualified Code(s): I26.99 - Other pulmonary embolism without acute cor pulmonale Code(s): I26.99 - Other pulmonary embolism without acute cor pulmonale Status: Acute Assessment and Plan: as diagnosed by CT angiogram of chest off all anticoagulation due to #3 and #4 (8) Encephalopathy: Code(s): G93.40 - Encephalopathy, unspecified Status: Acute Assessment and Plan: due toxic metabolic issues but possible anoxic brain injury due to cardiac arrest CT of head unremarkable difficult to do full assessment given her other above medical issues will likely need MRI at some point Discussed case with Dr. Mclaughlin earlier today. Will continue to follow. Subjective Date/time seen: 09/05/21 12:00 Remains intubated/sedated and on ventilator support; off vasopressors and remains hemodynamically stable at this time; a tad more urine output from nephrostomy tubs but renal function continues to deteriorate; s/p temporary dialysis catheter placement and tolerating nicolas
[2021-09-05 12:14] LABS: Hepatitis B Surface Antigen Negative (Negative)
[2021-09-05 12:16] LABS: Glucose Point of Care 117 mg/dl (65-105)
[2021-09-05] MEDS: EPOETIN ALFA-EPBX 10,000 UNITS/ML VIAL 10000 UNITS IV PUSH (13:55)
[2021-09-05] MEDS: SODIUM CHLORIDE 0.9% IV 1,000 ML 999 ML IV CONT ×2 (13:55→13:56)
[2021-09-05] MEDS: CALCIUM CHLOR 1,000MG/100ML NS 1,000 MG/100 ML BAG 100 MG IVPB (14:24)
[2021-09-05] MEDS: LIDOCAINE 5% PATCH 1 PATCH TRANSDERM (14:58)
[2021-09-05] MEDS: PROPOFOL IV EMULSION 100 ML 22.28 MG IV CONT ×3 (14:59→23:10)
[2021-09-05 18:26] LABS: Glucose Point of Care 129 mg/dl (65-105)
[2021-09-05 22:30] LABS: Hematocrit 24.3 % (37.0-47.0); Hemoglobin 8.3 g/dL (12.0-15.0); Mean Corpuscular HGB Conc 34.2 g/dl (32-36); Mean Corpuscular Volume 90.7 fl (80-100); Mean Platelet Volume 10.3 fl (7.4-10.4); Platelet Count Result 189 k/mm3 (150-375); Red Blood Count 2.68 M/mm3 (4.2-5.4); Red Cell Distribution Width 15.3 % (11.5-14.5); White Blood Count 16.7 K/mm3 (4.5-10.0)
[2021-09-05 23:38] LABS: Glucose Point of Care 136 mg/dl (65-105)
[2021-09-06] VITALS (52 sets, daily range): BP systolic 85–174; BP diastolic 51–123; PULSE 61–141; RESP 24–30; TEMP 35.8–37; O2SAT 92–98
[2021-09-06] MEDS: FENTANYL 2,500MCG/NS250ML(*CRX 2,500 MCG/250 ML BAG 20 MCG IV CONT (00:30)
[2021-09-06] MEDS: PROPOFOL IV EMULSION 100 ML 22.28 MG IV CONT (03:04)
[2021-09-06 05:04] LABS: Alveolar/Arterial O2 Gradient 213.1 mmHg; Base Excess ABG -1.5 mEq/l (+/-2.0); Carboxyhemoglobin 0.3 % THb (0-2.0); Fractional Inspired Oxygen 50 %; HCO3 ABG 21.2 mEq/l (22.0-26.0); Methemoglobin ABG 0.1 %THb (0-1.5); Oxygen Content ABG 11.9 %vol (16.0-22.0); Oxygen Saturation ABG 98.5 % (95.0-100.0); Oxyhemoglobin 96.9 % THb (90.0-100.0); PCO2 ABG 28.1 mmHg (35.0-45.0); PO2 ABG 111.8 mmHg (80.0-100.0); PO2 FiO2 Ratio Arterial Blood 2.24 %; Reduced Hemoglobin 2.7 %THb (0-5.0); Total Hemoglobin 8.6 g/dL (12.0-18.0); pH ABG 7.495 (7.350-7.450)
[2021-09-06 05:06] LABS: Device VENTILATOR; Modified Allen's Test Pass; Site Drawn RIGHT RADIAL
[2021-09-06 05:07] LABS: Arterial Blood Gas PEEP 5 cmH2O; Arterial Blood Gas Tidal Volume 400 ml; Arterial Blood Gas Vent Mode CMV; Arterial Blood Gas Ventilator rate 24 /MIN
[2021-09-06] MEDS: HYDROCORTISONE SODIUM SUCCINATE 100 MG/2 ML VIAL IV PUSH ×3 (05:36→21:05)
[2021-09-06] MEDS: PROPOFOL IV EMULSION 100 ML 26 MG IV CONT (05:37)
[2021-09-06 06:05] LABS: Hematocrit 23.1 % (37.0-47.0); Mean Corpuscular HGB Conc 34.6 g/dl (32-36); Mean Corpuscular Hemoglobin 31.5 pg (26-34); Mean Corpuscular Volume 90.9 fl (80-100); Mean Platelet Volume 10.7 fl (7.4-10.4); Platelet Count Result 185 k/mm3 (150-375); Red Blood Count 2.54 M/mm3 (4.2-5.4); Red Cell Distribution Width 15.3 % (11.5-14.5); White Blood Count 18.7 K/mm3 (4.5-10.0)
[2021-09-06 06:16] LABS: INR 1.3; Prothrombin Time 15.8 Seconds (11.1-14.7)
[2021-09-06 06:17] LABS: Partial Thromboplastin Time 29.2 SECONDS (22.3-36.8)
[2021-09-06 06:29] LABS: Alanine Aminotransferase 261 U/L (4-35); Albumin Level 2.7 g/dL (3.5-5.1); Alkaline Phosphatase 64 U/L (38-126); Anion Gap 12 mmol/L (8-16); Aspartate Amino Transferase 65 U/L (14-36); Bilirubin,Total 0.7 mg/dL (0.2-1.3); Blood Urea Nitrogen 72 mg/dL (7-17); Calcium 8.3 mg/dL (8.4-10.2); Carbon Dioxide 22 mmol/L (22-30); Chloride 99 mmol/L (98-107); Estimated CRCL calculation 12 ml/min; Estimated Glomerular Filt Rate 7; Glucose 107 mg/dL (65-110); Magnesium 2.1 mg/dL (1.6-2.3); Phosphorus 6.6 mg/dL (2.5-4.5); Potassium 3.9 mmol/L (3.4-5.0); Sodium 133 mmol/L (137-145)
[2021-09-06 07:22] LABS: Band Neutrophils Percent 7 % (0-6); Lymphocytes Absolute Manual 1.12 K/mm3 (1.1-4.5); Metamyelocytes Percent 3 %; Monocytes Absolute Manual 0.56 K/mm3 (0.1-0.90); Monocytes Percent Manual 3 % (3-9); Neutrophils Absolute Manual 16.45 K/mm3 (1.7-7.2); Neutrophils Percent Manual 81 % (46-73); Platelet Estimate Adequate (Adequate); Total Cells Counted 100
[2021-09-06 07:23] LABS: Anisocytosis 2+ (NORMAL)
[2021-09-06] MEDS: SODIUM CHLORIDE 0.9% IV 1,000 ML 100 ML IV CONT (08:15)
--- NOTE | 2021-09-06 08:57 | PC.NURSE ---
CURRENTLY GETTING HEMODIALYSIS
[2021-09-06] MEDS: ALBUMIN HUMAN 25% 12.5 GM/50ML 50 ML IVPB (09:50)
--- NOTE | 2021-09-06 10:31 | WPDINTPN ---
Progress Note: A&P Assessment and Plan (1) Anemia associated with acute blood loss: Code(s): D62 - Acute posthemorrhagic anemia Status: Acute Assessment and Plan: Patient initially received 4 units of PRBC, 2 units of FFP, 1 unit of cryo. 08/31 2 units of PRBC and 4 units of FFP were given. Patient was also given vitamin K. Hospital does not have andexanet and Kcentra not given due to high risk of new or worsening of her current thrombosis as patient already has PE and and also has COVID-19. Also her last dose of Eliquis was more than 24 hours ago 09/01 2 units of PRBC, DDAVP, tranexamic acid was given 09/02 1 unit of PRBC given 09/03 1 unit of PRBC given overnight 09/05 1 unit PRBC transfused Her hemoglobin continues to trend down but very slowly. Continue monitoring and transfuse as needed Continue to Monitor coags which are in acceptable range at this time CT 08/30 IMPRESSION: 1. Large hematoma in right pelvis extending into the peritoneum with two foci of active extravasation of contrast. 2. Hematomas in the rectus abdominis muscles, right worse than left. 3. Splenic infarcts. Small volume of perisplenic ascites. 4. Diffuse lung disease, consistent with COVID-[address] abdomen pelvis 09/02 3. Large volume of extraperitoneal hematoma in the pelvis centered to the right of midline, mildly worsened from 08/30/21. Moderate volume of hemoperitoneum, worsened from 08/30/21. 4. Moderate bilateral hydronephrosis and hydroureter secondary to mass effect from the pelvic hematoma, worsened from 08/30/21. 5. Hematomas in the rectus abdominis muscles, right worse than left, stable from 08/30/21. 6. Splenic infarcts again seen. 08/31 I wanted to to transfer patient to a facility where patient can get angiogram and possible embolization if ongoing bleed but due to current COVID 19 pandemic there are no ICU beds available. I called [facility] including [facility] and they did not have any ICU bed available in any of the 6 hospitals. I gave them patient information and they will call me if a bed opens up. Hospitalist provider called [facility], [facility] to see if they have any bed available General surgery was consulted but no surgical options at this time 09/01 I called [facility], [facility] and [facility] again and no beds available. Hospitals in [place] are also not accepting any transfers 09/02 patient remains on wait list at [facility] 09/05 I again confirmed today the patient is on wait list at [facility] and [facility] is still not accepting any transfers At this point the goal is to maintain coags in acceptable range, transfuse blood products to maintain adequate hemoglobin level and hopefully the bleeding will stop. She will need eventually definitive treatment whether vascular and/or surgical for that large hematoma (2) Hemorrhagic shock: Code(s): R57.8 - Other shock Status: Acute Assessment and Plan: Secondary to blood loss and possibly sepsis Improved as patient is now off of vasopressors Monitor closely Patient has received significant amount of volume and is overall volume overloaded. Hold further IV fluids and only administer blood products as needed (3) Sepsis: Code(s): A41.9 - Sepsis, unspecified organism Status: Acute Assessment and Plan: Urine blood cultures have been sent Patient is on empiric cefepime vancomycin was discontinued as cultures remain negative due to impaired renal function (4) Pulmonary embolism: Qualifiers: Pulmonary embolism type: unspecified Chronicity: acute Acute cor pulmonale presence: without acute cor pulmonale Qualified Code(s): I26.99 - Other pulmonary embolism without acute cor pulmonale Code(s): I26.99 - Other pulmonary embolism without acute cor pulmonale Status: Acute Assessment and Plan: Currently off of anticoagulation secondary to hemorrhagic shock. Not a candidate for anticoagulation at this time Checked lower extremity Dopplers f
--- NOTE | 2021-09-06 11:42 | PM.PNNEP ---
Progress Note: A&P Assessment and Plan (1) JERRY (acute kidney injury): Code(s): N17.9 - Acute kidney failure, unspecified Status: Acute Assessment and Plan: due to ATN from: hemorrhagic shock contrast exposure obstruction creatinine continues to rise in association with poor urine output evaluation to date: likely renal ultrasound with evidence of obstruction - Urology consulted CPK mildly elevated (but not enough to affect kidney function) urine electrolytes non-prerenal s/p adequate volume resuscitation HD yesterday and HD today follow trend of repeat labs and UOP for potential renal recovery (2) Bilateral hydronephrosis: Code(s): N13.30 - Unspecified hydronephrosis Status: Acute Assessment and Plan: as noted by renal ultrasound CT scan (09/02/20) with moderate bilateral hydronephrosis and hydroureter secondary to mass effect from the pelvic hematoma, worsened from 08/30/[address]-guided nephrostomy tube placement on 09/02/20 Urology following (3) Anemia associated with acute blood loss: Code(s): D62 - Acute posthemorrhagic anemia Status: Acute Assessment and Plan: as noted by recent CT scan: large hematoma in right pelvis extending into the peritoneum with two foci of active extravasation of contrast; hematomas in the rectus abdominis muscles, right worse than left s/p mulitple blood products (PRBC, FFP, cryo) as well as DDAVP and tranexamic acid s/p Vitamin K as well given coagulopathy (andexanet unavailable here) follow H/H and coags option to transfer to another facility for possible angiogram and possible embolization for ongoing bleed unavailable due to no ICU beds available at other hospitals due to COVID pandemic (4) Hemorrhagic shock: Code(s): R57.8 - Other shock Status: Acute Assessment and Plan: secondary to blood loss (see #3) continue transfusion as needed off vasopressor therapy s/p aggressive IVF resuscitation follow trend of hemodynamics (5) Acute respiratory failure with hypoxia: Code(s): J96.01 - Acute respiratory failure with hypoxia Status: Acute Assessment and Plan: due to cardiac arrest, COVID pneumonia, and pulmonary embolism continue ventilator support weaning as able (6) Pneumonia due to COVID-19 virus: Code(s): U07.1 - COVID-19; J12.82 - Pneumonia due to coronavirus disease 2019 Status: Acute Assessment and Plan: positive by recent testing on steroids (more so for shock than COVID at this time) s/p convalscent plasam on 08/22/21 s/p remdesivir but stopped due to elevated LFTs and renal dysfunction continue supportive therapy (7) Pulmonary embolism: Qualifiers: Pulmonary embolism type: unspecified Chronicity: acute Acute cor pulmonale presence: without acute cor pulmonale Qualified Code(s): I26.99 - Other pulmonary embolism without acute cor pulmonale Code(s): I26.99 - Other pulmonary embolism without acute cor pulmonale Status: Acute Assessment and Plan: as diagnosed by CT angiogram of chest off all anticoagulation due to #3 and #4 (8) Encephalopathy: Code(s): G93.40 - Encephalopathy, unspecified Status: Acute Assessment and Plan: due toxic metabolic issues but possible anoxic brain injury due to cardiac arrest CT of head unremarkable difficult to do full assessment given her other above medical issues will likely need MRI at some point Will continue to follow. Subjective Date/time seen: 09/06/21 11:42 Tolerating dialysis treatment at the time of my visit (seen on HD at 11:30AM); tolerated dialysis treatment yesterday as well; remains hemodynamically stable without the need for vasopressor support; some urine output noted via nephrostomy tubes/castaneda catheter (but not much); remains intubated/sedated and on mechanical ventilation. Exam Narrative: Gen
--- NOTE | 2021-09-06 11:42 | P.PNNP_ITS ---
Progress Note: A&P Assessment and Plan (1) JERRY (acute kidney injury): Code(s): N17.9 - Acute kidney failure, unspecified Status: Acute Assessment and Plan: * due to ATN from: * hemorrhagic shock * contrast exposure * obstruction * creatinine continues to rise in association with poor urine output * evaluation to date: * likely renal ultrasound with evidence of obstruction - Urology consulted * CPK mildly elevated (but not enough to affect kidney function) * urine electrolytes non-prerenal * s/p adequate volume resuscitation * HD yesterday and HD today * follow trend of repeat labs and UOP for potential renal recovery (2) Bilateral hydronephrosis: Code(s): N13.30 - Unspecified hydronephrosis Status: Acute Assessment and Plan: * as noted by renal ultrasound * CT scan (09/02/20) with moderate bilateral hydronephrosis and hydroureter secondary to mass effect from the pelvic hematoma, worsened from 08/30/21 * s/p bilateral CT-guided nephrostomy tube placement on 09/02/20 * Urology following (3) Anemia associated with acute blood loss: Code(s): D62 - Acute posthemorrhagic anemia Status: Acute Assessment and Plan: * as noted by recent CT scan: * large hematoma in right pelvis extending into the peritoneum with two foci of active extravasation of contrast; hematomas in the rectus abdominis muscles, right worse than left * s/p mulitple blood products (PRBC, FFP, cryo) as well as DDAVP and tranexamic acid * s/p Vitamin K as well given coagulopathy (andexanet unavailable here) * follow H/H and coags * option to transfer to another facility for possible angiogram and possible embolization for ongoing bleed unavailable due to no ICU beds available at other hospitals due to COVID pandemic (4) Hemorrhagic shock: Code(s): R57.8 - Other shock Status: Acute Assessment and Plan: * secondary to blood loss (see #3) * continue transfusion as needed * off vasopressor therapy * s/p aggressive IVF resuscitation * follow trend of hemodynamics (5) Acute respiratory failure with hypoxia: Code(s): J96.01 - Acute respiratory failure with hypoxia Status: Acute Assessment and Plan: * due to cardiac arrest, COVID pneumonia, and pulmonary embolism * continue ventilator support * weaning as able (6) Pneumonia due to COVID-19 virus: Code(s): U07.1 - COVID-19; J12.82 - Pneumonia due to coronavirus disease 2019 Status: Acute Assessment and Plan: * positive by recent testing * on steroids (more so for shock than COVID at this time) * s/p convalscent plasam on 08/22/21 * s/p remdesivir but stopped due to elevated LFTs and renal dysfunction * continue supportive therapy (7) Pulmonary embolism: Qualifiers: Pulmonary embolism type: unspecified Chronicity: acute Acute cor pulmonale presence: without acute cor pulmonale Qualified Code(s): I26.99 - Other pulmonary embolism without acute cor pulmonale Code(s): I26.99 - Other pulmonary embolism without acute cor pulmonale Status: Acute Assessment and Plan: * as diagnosed by CT angiogram of chest * off all anticoagulation due to #3 and #4 (8) Encephalopathy: Code(s): G93.40 - Encephalopathy, unspecified Status: Acute Assessment and Plan: * due toxic metabolic issues but possible anoxic brain injury due to cardiac arrest * CT of head unremarkable * difficult to do full assessment given her other above medical issues * will omayra
--- NOTE | 2021-09-06 11:44 | PM.PNGS ---
Progress Note: A&P Assessment and Plan (1) Anemia associated with acute blood loss: Code(s): D62 - Acute posthemorrhagic anemia Status: Acute Assessment and Plan: stable, received 1 u yest c richie response, cont to transfuse as necessary, no acute surgical issues, will sign off, call c ?s, issues Subjective Subjective Date/Time Seen: 09/06/21 11:44 no acute issues, got 1 u yest, had HD Review of Systems Review of Systems: ROS unobtainable: Yes unobtainable due to endotracheal tube Exam Const: Other: intubated, sedated Resp: Effort & Inspection: normal respiratory effort Auscultation: diminished lung sounds Cardio: Rate: regular rate Rhythm: regular rhythm GI: Inspection: normal to inspection and distended GI Palp: Yes Soft to palpation Objective Data Vital Signs Vital Signs: Vital Signs - 24 hr 09/05/21 11:45 09/05/21 12:00 09/05/21 12:15 Temperature Pulse Rate 53 L 75 53 L Respiratory Rate 24 H Blood Pressure 119/67 127/72 117/70 Pulse Oximetry 93 09/05/21 12:30 09/05/21 12:45 09/05/21 13:00 Temperature Pulse Rate 74 114 H 69 Respiratory Rate Blood Pressure 137/84 148/84 H 127/72 Pulse Oximetry 09/05/21 13:15 09/05/21 13:30 09/05/21 13:42 Temperature Pulse Rate 87 60 75 Respiratory Rate 24 H Blood Pressure 131/73 121/69 Pulse Oximetry 09/05/21 13:44 09/05/21 13:45 09/05/21 14:00 Temperature Pulse Rate 75 64 61 Respiratory Rate 24 H 24 H 24 H Blood Pressure 119/69 115/66 Pulse Oximetry 99 09/05/21 14:15 09/05/21 14:19 09/05/21 14:24 Temperature Pulse Rate 62 73 64 Respiratory Rate 24 H Blood Pressure 111/67 Pulse Oximetry 98 09/05/21 14:28 09/05/21 14:40 09/05/21 14:59 Temperature 35.3 C L Pulse Rate 83 64 114 H Respiratory Rate 17 26 H Blood Pressure 111/67 124/70 Pulse Oximetry 97 09/05/21 15:59 09/05/21 16:00 09/05/21 16:17 Temperature 35.6 C L 35.5 C L 35.5 C L Pulse Rate 58 L 57 L 57 L Respiratory Rate 24 H 24 H 24 H Blood Pressure 125/72 119/72 119/72 Pulse Oximetry 99 97 98 09/05/21 17:00 09/05/21 17:12 09/05/21 17:17 Temperature 35.5 C L Pulse Rate 63 61 79 Respiratory Rate 24 H 24 H Blood Pressure 132/77 Pulse Oximetry 98 95 09/05/21 18:00 09/05/21 18:17 09/05/21 18:33 Temperature 35.5 C L 35.5 C L 35.6 C L Pulse Rate 63 62 64 Respiratory Rate 24 H 24 H 24 H Blood Pressure 122/68 122/68 122/67 Pulse Oximetry 93 92 92 09/05/21 18:51 09/05/21 19:17 09/05/21 20:00 Temperature 35.9 C L Pulse Rate 122 H 122 H 132 H Respiratory Rate 24 H 24 H 30 H Blood Pressure 165/97 H Pulse Oximetry 97 09/05/21 21:23 09/05/21 22:00 09/05/21 23:10 Temperature Pulse Rate 114 H 132 H 67 Respiratory Rate 30 H 24 H Blood Pressure 122/79 Pulse Oximetry 96 97 09/05/21 23:46 09/05/21 23:59 09/06/21 00:00 Temperature 36.4 C Pulse Rate 68 69 72 Respiratory Rate 24 H Blood Pressure 99/57 L Pulse Oximetry 96 95 09/06/21 00:30 09/06/21 02:00 09/06/21 03:04 Temperature 36.4 C Pulse Rate 74 71 72 Respiratory Rate 24 H 24 H 24 H Blood Pressure 105/58 L Pulse Oximetry 95 09/06/21 03:13 09/06/21 03:41 09/06/21 03:49 Temperature Pulse Rate 71 70 71 Respiratory Rate 24 H Blood Pressure Pulse Oximetry 95 95 09/06/21 04:00 09/06/21 04:52 09/06/21 05:37 Temperature 36.6 C Pulse Rate 73 73 72 Respiratory Rate 24 H 24 H Blood Pressure 100/55 L Pulse Oximetry 95 96 09/06/21 06:00 09/06/21 08:00 09/06/21 08:45 Temperature 36.3 C L 36.4 C L Pulse Rate 97 141 H 82 Respiratory Rate 28 H 30 H 24 H Blood Pressure 123/60 174/123 H 105/66 Pulse Oximetry 92 96 95 09/06/21 08:58 09/06/21 09:00 09/06/21 09:15 Temperature Pulse Rate 93 81 83 Respiratory Rate Blood Pressure 107/63 100/62 Pulse Oximetry 94 09/06/21 09:30 09/06/21 09:35 09/06/21 09:45 Temperature Pulse Rate 85 82 80 Respiratory Rate
[2021-09-06] MEDS: EPOETIN ALFA-EPBX 10,000 UNITS/ML VIAL 10000 UNITS IV PUSH (11:45)
[2021-09-06 11:54] LABS: Glucose Point of Care 101 mg/dl (65-105)
--- NOTE | 2021-09-06 12:10 | PCFNICU ---
ICU Rounding Note: Pt current nutrition is Nepro at 40 ml/hr over 22 hours. Last recorded weight is 121.9 kg, up from 100.3 kg on admit. Bowel Motility: fecal containment catheter Labs Reviewed:Cr 6.3,BUN 72, GFR 7,Ca 8.3,PO4 6.6,Alb 2.7, Hct 23.1,Hgb 8.0 Meds Noted:Levophed, Vancomycin, Vasopressin, Maxipime, Propofol 35 mics= 686 kcals, Solu-Cortef Skin: WNL Additional Notes: Patient remains on mechanical vent. Getting hemodialysis today. Propofol increased from 25 to 35 mics today. Spoke with nursing today in regards to tube feeding rate. Recommend decreasing tube feeding to 35 ml/hr over 22 hours which will provide 1386 kcals/62 gms protein/560 ml water with an additional 686 kcals from propofol. Meeting 95% of caloric needs and 58% of protein needs. Agree with diet orders at this time. Will continue to monitor propofol titrations for any tube feeding rate changes. Following daily in ICU rounds and reassessing every Saturday and Saturday.
[2021-09-06] MEDS: MINERAL OIL/WHITE PETROLATUM OINTMENT 1 APPLIC EACH EYE ×2 (13:09→21:05)
[2021-09-06] MEDS: PROPOFOL IV EMULSION 100 ML 29.71 MG IV CONT (13:31)
[2021-09-06] MEDS: FENTANYL 2,500MCG/NS250ML(*CRX 2,500 MCG/250 ML BAG 17.5 MCG IV CONT (13:32)
[2021-09-06 15:02] LABS: Hematocrit 25.4 % (37.0-47.0); Hemoglobin 8.8 g/dL (12.0-15.0); Mean Corpuscular HGB Conc 34.6 g/dl (32-36); Mean Corpuscular Hemoglobin 31.4 pg (26-34); Mean Corpuscular Volume 90.7 fl (80-100); Mean Platelet Volume 10.6 fl (7.4-10.4); Platelet Count Result 214 k/mm3 (150-375); Red Cell Distribution Width 15.8 % (11.5-14.5); White Blood Count 20.8 K/mm3 (4.5-10.0)
[2021-09-06] MEDS: PROPOFOL IV EMULSION 100 ML 37.14 MG IV CONT ×4 (15:54→23:52)
[2021-09-06] MEDS: CENTRAL LINE FLUSH 10 ML IV PUSH (17:26)
[2021-09-06 17:56] LABS: Glucose Point of Care 99 mg/dl (65-105)
[2021-09-06 20:10] LABS: Glucose Point of Care 123 mg/dl (65-105)
[2021-09-06 23:58] LABS: Glucose Point of Care 143 mg/dl (65-105)
[2021-09-07] VITALS (29 sets, daily range): BP systolic 102–167; BP diastolic 59–97; PULSE 63–133; RESP 24–38; TEMP 36.2–37.4; O2SAT 93–99
[2021-09-07] MEDS: PROPOFOL IV EMULSION 100 ML 37.14 MG IV CONT ×8 (03:00→23:24)
[2021-09-07] MEDS: FENTANYL 2,500MCG/NS250ML(*CRX 2,500 MCG/250 ML BAG 17.5 MCG IV CONT ×2 (03:01→17:09)
[2021-09-07 04:30] LABS: Alveolar/Arterial O2 Gradient 155.1 mmHg; Base Excess ABG -1.4 mEq/l (+/-2.0); Carboxyhemoglobin 0.3 % THb (0-2.0); Fractional Inspired Oxygen 40 %; HCO3 ABG 22.4 mEq/l (22.0-26.0); Methemoglobin ABG 0.6 %THb (0-1.5); Oxygen Content ABG 10.8 %vol (16.0-22.0); Oxygen Saturation ABG 97.4 % (95.0-100.0); Oxyhemoglobin 95.3 % THb (90.0-100.0); PCO2 ABG 33.5 mmHg (35.0-45.0); PO2 ABG 91.6 mmHg (80.0-100.0); PO2 FiO2 Ratio Arterial Blood 2.29 %; Reduced Hemoglobin 3.8 %THb (0-5.0); pH ABG 7.443 (7.350-7.450)
[2021-09-07 04:32] LABS: Arterial Blood Gas Ventilator rate 24 /MIN; Device VENTILATOR; Modified Allen's Test Pass; Site Drawn LEFT RADIAL; Total Hemoglobin 7.9 g/dL (12.0-18.0)
[2021-09-07 04:33] LABS: Arterial Blood Gas PEEP 5 cmH2O; Arterial Blood Gas Tidal Volume 400 ml; Arterial Blood Gas Vent Mode CMV
[2021-09-07 04:41] LABS: Hemoglobin 8.2 g/dL (12.0-15.0); Mean Corpuscular HGB Conc 34.2 g/dl (32-36); Mean Corpuscular Hemoglobin 30.9 pg (26-34); Mean Corpuscular Volume 90.6 fl (80-100); Mean Platelet Volume 10.5 fl (7.4-10.4); Platelet Count Result 220 k/mm3 (150-375); Red Blood Count 2.65 M/mm3 (4.2-5.4); Red Cell Distribution Width 16.5 % (11.5-14.5); White Blood Count 20.3 K/mm3 (4.5-10.0)
[2021-09-07 04:53] LABS: INR 1.2
[2021-09-07 04:54] LABS: Partial Thromboplastin Time 30.7 SECONDS (22.3-36.8)
[2021-09-07] MEDS: HYDROCORTISONE SODIUM SUCCINATE 100 MG/2 ML VIAL IV PUSH (05:00)
[2021-09-07 05:03] LABS: Alanine Aminotransferase 194 U/L (4-35); Albumin Level 2.8 g/dL (3.5-5.1); Alkaline Phosphatase 72 U/L (38-126); Anion Gap 10 mmol/L (8-16); Aspartate Amino Transferase 55 U/L (14-36); Bilirubin,Total 0.8 mg/dL (0.2-1.3); Blood Urea Nitrogen 49 mg/dL (7-17); Carbon Dioxide 23 mmol/L (22-30); Chloride 99 mmol/L (98-107); Estimated CRCL calculation 18 ml/min; Estimated Glomerular Filt Rate 11; Glucose 115 mg/dL (65-110); Magnesium 2.1 mg/dL (1.6-2.3); Phosphorus 4.4 mg/dL (2.5-4.5); Potassium 3.9 mmol/L (3.4-5.0); Sodium 132 mmol/L (137-145)
[2021-09-07 07:37] LABS: Glucose Point of Care 123 mg/dl (65-105)
[2021-09-07] MEDS: MINERAL OIL/WHITE PETROLATUM OINTMENT 1 APPLIC EACH EYE ×2 (08:49→20:54)
[2021-09-07] MEDS: LIDOCAINE 5% PATCH 1 PATCH TRANSDERM (08:49)
--- NOTE | 2021-09-07 10:36 | WPDINTPN ---
Progress Note: A&P Assessment and Plan (1) Anemia associated with acute blood loss: Code(s): D62 - Acute posthemorrhagic anemia Status: Acute Assessment and Plan: Patient initially received 4 units of PRBC, 2 units of FFP, 1 unit of cryo. 08/31 2 units of PRBC and 4 units of FFP were given. Patient was also given vitamin K. Hospital does not have andexanet and Kcentra not given due to high risk of new or worsening of her current thrombosis as patient already has PE and and also has COVID-19. Also her last dose of Eliquis was more than 24 hours ago 09/01 2 units of PRBC, DDAVP, tranexamic acid was given 09/02 1 unit of PRBC given 09/03 1 unit of PRBC given overnight 09/05 1 unit PRBC transfused Her hemoglobin continues to trend down but very slowly. Continue monitoring and transfuse as needed Continue to Monitor coags which are in acceptable range at this time CT 08/30 IMPRESSION: 1. Large hematoma in right pelvis extending into the peritoneum with two foci of active extravasation of contrast. 2. Hematomas in the rectus abdominis muscles, right worse than left. 3. Splenic infarcts. Small volume of perisplenic ascites. 4. Diffuse lung disease, consistent with COVID-[address] abdomen pelvis 09/02 3. Large volume of extraperitoneal hematoma in the pelvis centered to the right of midline, mildly worsened from 08/30/21. Moderate volume of hemoperitoneum, worsened from 08/30/21. 4. Moderate bilateral hydronephrosis and hydroureter secondary to mass effect from the pelvic hematoma, worsened from 08/30/21. 5. Hematomas in the rectus abdominis muscles, right worse than left, stable from 08/30/21. 6. Splenic infarcts again seen. 08/31 I wanted to to transfer patient to a facility where patient can get angiogram and possible embolization if ongoing bleed but due to current COVID 19 pandemic there are no ICU beds available. I called [facility] including [facility] and they did not have any ICU bed available in any of the 6 hospitals. I gave them patient information and they will call me if a bed opens up. Hospitalist provider called [facility], [facility] to see if they have any bed available General surgery was consulted but no surgical options at this time 09/01 I called [facility], [facility] and [facility] again and no beds available. [facility] [place] are also [place] accepting any transfers 09/02 patient remains on wait list at [facility] 09/05 I again confirmed today the patient is on wait list at [facility] and [facility] is still not accepting any transfers At this point the goal is to maintain coags in acceptable range, transfuse blood products to maintain adequate hemoglobin level and hopefully the bleeding will stop. She will need eventually definitive treatment whether vascular and/or surgical for that large hematoma (2) Hemorrhagic shock: Code(s): R57.8 - Other shock Status: Acute Assessment and Plan: Secondary to blood loss and possibly sepsis Improved as patient is now off of vasopressors Monitor closely Patient has received significant amount of volume and is overall volume overloaded. Hold further IV fluids and only administer blood products as needed (3) Sepsis: Code(s): A41.9 - Sepsis, unspecified organism Status: Acute Assessment and Plan: Urine and blood cultures have been negative Sputum culture grew yeast which is likely a colonizer Femoral central venous catheter was removed on 09/05 Her WBC remained elevated I will change the antibiotics to vancomycin and imipenem (4) Pulmonary embolism: Qualifiers: Pulmonary embolism type: unspecified Chronicity: acute Acute cor pulmonale presence: without acute cor pulmonale Qualified Code(s): I26.99 - Other pulmonary embolism without acute cor pulmonale Code(s): I26.99 - Other pulmonary embolism without acute cor pulmonale Status: Acute Assessment and Plan: Currently off of anticoagulation secondary to hemorrhagic shock. Not
--- NOTE | 2021-09-07 11:54 | PM.EVENT ---
Event Note Event Note Event Note: On chest x-ray this morning patient's tip of dialysis catheter appeared close to atrial wall. I withdrew catheter by 3 cm and sutured it again using sterile precautions. Repeat chest x-ray reviewed
[2021-09-07 12:05] LABS: Glucose Point of Care 122 mg/dl (65-105)
[2021-09-07] MEDS: MIDAZOLAM HCL (*CRX) 2 MG/2 ML VIAL 4 MG IV PUSH (12:39)
--- NOTE | 2021-09-07 14:26 | PCFNICU ---
ICU Rounding Note: Pt current nutrition is Nepro at 35 mls per hour over 22 hours per day. Last recorded weight is 122.2 kg, up from 100.3 kg on admit. Bowel Motility: + BM 09/07/2021 Labs Reviewed: Hgb 8.2, Hct 24, Alb 2.8, Na 132, GFR 11, BUN 49, Cr 4.3, Glu 115 Meds Noted: Albuterol, Albutein, Glucagon, Glucose, Novolog, Lidoderm, Multivitamins, Propofol, Zoloft, Vancomycin Hcl Skin: WNL Additional Notes: Patient remains on a mechanical ventilator. Propofol increased from 35 to 50 mics today. Spoke with MD and recommended decreasing tube feeding rate to 20 mls per hour over 22 hours per day to avoid overfeeding. Still providing pt. with 792 calories from feeding and an additional 981 calories from propofol. In total pt. is receiving 1773 calories. Pt. may benefit from receiving prostat BID providing an additional 30 grams of protein and 200 calories to help increase protein intake and avoiding overfeeding. Following daily in ICU rounds. Will monitor every Saturday and Saturday.
[2021-09-07 16:06] LABS: Glucose Point of Care 93 mg/dl (65-105)
[2021-09-07] MEDS: CENTRAL LINE FLUSH 10 ML IV PUSH (17:12)
--- NOTE | 2021-09-07 17:42 | PM.PNNEP ---
Progress Note: A&P Assessment and Plan (1) JERRY (acute kidney injury): Code(s): N17.9 - Acute kidney failure, unspecified Status: Acute Assessment and Plan: due to ATN from: hemorrhagic shock contrast exposure obstruction creatinine continues to rise in association with poor urine output evaluation to date: likely renal ultrasound with evidence of obstruction - Urology consulted CPK mildly elevated (but not enough to affect kidney function) urine electrolytes non-prerenal s/p adequate volume resuscitation HD tomorrow versus Saturday depending on HD nurse availability follow trend of repeat labs and UOP for potential renal recovery (2) Bilateral hydronephrosis: Code(s): N13.30 - Unspecified hydronephrosis Status: Acute Assessment and Plan: as noted by renal ultrasound CT scan (09/02/20) with moderate bilateral hydronephrosis and hydroureter secondary to mass effect from the pelvic hematoma, worsened from 08/30/[address] s[address]-guided nephrostomy tube placement on 09/02/20 Urology following (3) Anemia associated with acute blood loss: Code(s): D62 - Acute posthemorrhagic anemia Status: Acute Assessment and Plan: as noted by recent CT scan: large hematoma in right pelvis extending into the peritoneum with two foci of active extravasation of contrast; hematomas in the rectus abdominis muscles, right worse than left s/p mulitple blood products (PRBC, FFP, cryo) as well as DDAVP and tranexamic acid s/p Vitamin K as well given coagulopathy (andexanet unavailable here) follow H/H and coags option to transfer to another facility for possible angiogram and possible embolization for ongoing bleed unavailable due to no ICU beds available at other hospitals due to COVID pandemic (4) Hemorrhagic shock: Code(s): R57.8 - Other shock Status: Acute Assessment and Plan: secondary to blood loss (see #3) continue transfusion as needed off vasopressor therapy s/p aggressive IVF resuscitation follow trend of hemodynamics (5) Acute respiratory failure with hypoxia: Code(s): J96.01 - Acute respiratory failure with hypoxia Status: Acute Assessment and Plan: due to cardiac arrest, COVID pneumonia, and pulmonary embolism continue ventilator support weaning as able (6) Pneumonia due to COVID-19 virus: Code(s): U07.1 - COVID-19; J12.82 - Pneumonia due to coronavirus disease 2019 Status: Acute Assessment and Plan: positive by recent testing on steroids (more so for shock than COVID at this time) s/p convalscent plasam on 08/22/21 s/p remdesivir but stopped due to elevated LFTs and renal dysfunction continue supportive therapy (7) Pulmonary embolism: Qualifiers: Pulmonary embolism type: unspecified Chronicity: acute Acute cor pulmonale presence: without acute cor pulmonale Qualified Code(s): I26.99 - Other pulmonary embolism without acute cor pulmonale Code(s): I26.99 - Other pulmonary embolism without acute cor pulmonale Status: Acute Assessment and Plan: as diagnosed by CT angiogram of chest off all anticoagulation due to #3 and #4 (8) Encephalopathy: Code(s): G93.40 - Encephalopathy, unspecified Status: Acute Assessment and Plan: due toxic metabolic issues but possible anoxic brain injury due to cardiac arrest CT of head unremarkable difficult to do full assessment given her other above medical issues will likely need MRI at some point Will continue to follow. Subjective Date/time seen: 09/07/21 17:42 Remains intubated/sedated and on mechanical ventilation; tolerated hemodialysis treatment yesterday without any issues; remains hemodynamically stable at this time without the need for vasopressor support; still with no significant urine output from nephrostomy tubes or castaneda; no new issues/events overnight or earlier this A
--- NOTE | 2021-09-07 17:42 | P.PNNP_ITS ---
Progress Note: A&P Assessment and Plan (1) JERRY (acute kidney injury): Code(s): N17.9 - Acute kidney failure, unspecified Status: Acute Assessment and Plan: * due to ATN from: * hemorrhagic shock * contrast exposure * obstruction * creatinine continues to rise in association with poor urine output * evaluation to date: * likely renal ultrasound with evidence of obstruction - Urology consulted * CPK mildly elevated (but not enough to affect kidney function) * urine electrolytes non-prerenal * s/p adequate volume resuscitation * HD tomorrow versus Saturday depending on HD nurse availability * follow trend of repeat labs and UOP for potential renal recovery (2) Bilateral hydronephrosis: Code(s): N13.30 - Unspecified hydronephrosis Status: Acute Assessment and Plan: * as noted by renal ultrasound * CT scan (09/02/20) with moderate bilateral hydronephrosis and hydroureter secondary to mass effect from the pelvic hematoma, worsened from 08/30/21 * s/p bilateral CT-guided nephrostomy tube placement on 09/02/20 * Urology following (3) Anemia associated with acute blood loss: Code(s): D62 - Acute posthemorrhagic anemia Status: Acute Assessment and Plan: * as noted by recent CT scan: * large hematoma in right pelvis extending into the peritoneum with two foci of active extravasation of contrast; hematomas in the rectus abdominis muscles, right worse than left * s/p mulitple blood products (PRBC, FFP, cryo) as well as DDAVP and tranexamic acid * s/p Vitamin K as well given coagulopathy (andexanet unavailable here) * follow H/H and coags * option to transfer to another facility for possible angiogram and possible embolization for ongoing bleed unavailable due to no ICU beds available at other hospitals due to COVID pandemic (4) Hemorrhagic shock: Code(s): R57.8 - Other shock Status: Acute Assessment and Plan: * secondary to blood loss (see #3) * continue transfusion as needed * off vasopressor therapy * s/p aggressive IVF resuscitation * follow trend of hemodynamics (5) Acute respiratory failure with hypoxia: Code(s): J96.01 - Acute respiratory failure with hypoxia Status: Acute Assessment and Plan: * due to cardiac arrest, COVID pneumonia, and pulmonary embolism * continue ventilator support * weaning as able (6) Pneumonia due to COVID-19 virus: Code(s): U07.1 - COVID-19; J12.82 - Pneumonia due to coronavirus disease 2018 Status: Acute Assessment and Plan: * positive by recent testing * on steroids (more so for shock than COVID at this time) * s/p convalscent plasam on 08/22/21 * s/p remdesivir but stopped due to elevated LFTs and renal dysfunction * continue supportive therapy (7) Pulmonary embolism: Qualifiers: Pulmonary embolism type: unspecified Chronicity: acute Acute cor pulmonale presence: without acute cor pulmonale Qualified Code(s): I26.99 - Other pulmonary embolism without acute cor pulmonale Code(s): I26.99 - Other pulmonary embolism without acute cor pulmonale Status: Acute Assessment and Plan: * as diagnosed by CT angiogram of chest * off all anticoagulation due to #3 and #4 (8) Encephalopathy: Code(s): G93.40 - Encephalopathy, unspecified Status: Acute Assessment and Plan: * due toxic metabolic issues but possible anoxic brain injury due to cardiac arrest * CT of head unremarkable * difficult to do full assessment given her oth
[2021-09-07 20:17] LABS: Glucose Point of Care 92 mg/dl (65-105)
[2021-09-07 23:29] LABS: Glucose Point of Care 100 mg/dl (65-105)
[2021-09-08] VITALS (30 sets, daily range): BP systolic 78–178; BP diastolic 43–112; PULSE 73–131; RESP 22–38; TEMP 36.1–37.1; O2SAT 91–100
[2021-09-08] MEDS: PROPOFOL IV EMULSION 100 ML 37.14 MG IV CONT ×4 (02:15→14:26)
[2021-09-08 05:05] LABS: Hemoglobin 8.4 g/dL (12.0-15.0); Mean Corpuscular HGB Conc 32.3 g/dl (32-36); Mean Corpuscular Hemoglobin 30.5 pg (26-34); Mean Corpuscular Volume 94.5 fl (80-100); Mean Platelet Volume 10.2 fl (7.4-10.4); Platelet Count Result 216 k/mm3 (150-375); Red Blood Count 2.75 M/mm3 (4.2-5.4); Red Cell Distribution Width 17.2 % (11.5-14.5); White Blood Count 19.5 K/mm3 (4.5-10.0)
[2021-09-08 05:20] LABS: Alanine Aminotransferase 149 U/L (4-35); Albumin Level 2.8 g/dL (3.5-5.1); Alkaline Phosphatase 76 U/L (38-126); Anion Gap 11 mmol/L (8-16); Aspartate Amino Transferase 64 U/L (14-36); Bilirubin,Total 0.9 mg/dL (0.2-1.3); Blood Urea Nitrogen 65 mg/dL (7-17); Calcium 7.6 mg/dL (8.4-10.2); Carbon Dioxide 21 mmol/L (22-30); Chloride 98 mmol/L (98-107); Estimated CRCL calculation 15 ml/min; Estimated Glomerular Filt Rate 8; Glucose 83 mg/dL (65-110); Magnesium 1.9 mg/dL (1.6-2.3); Phosphorus 5.3 mg/dL (2.5-4.5); Potassium 3.3 mmol/L (3.4-5.0); Sodium 130 mmol/L (137-145); Triglycerides 77 mg/dL (<150)
[2021-09-08 05:30] LABS: Alveolar/Arterial O2 Gradient 146.4 mmHg; Base Excess ABG -4.4 mEq/l (+/-2.0); Carboxyhemoglobin 0.3 % THb (0-2.0); Fractional Inspired Oxygen 40 %; HCO3 ABG 20.3 mEq/l (22.0-26.0); Methemoglobin ABG 0.4 %THb (0-1.5); Oxygen Content ABG 14.1 %vol (16.0-22.0); Oxygen Saturation ABG 97.3 % (95.0-100.0); PCO2 ABG 35.8 mmHg (35.0-45.0); PO2 ABG 97.6 mmHg (80.0-100.0); PO2 FiO2 Ratio Arterial Blood 2.44 %; Reduced Hemoglobin 3.3 %THb (0-5.0); Total Hemoglobin 10.3 g/dL (12.0-18.0); pH ABG 7.371 (7.350-7.450)
[2021-09-08 05:32] LABS: Arterial Blood Gas PEEP 5 cmH2O; Arterial Blood Gas Tidal Volume 400 ml; Arterial Blood Gas Vent Mode CMV; Arterial Blood Gas Ventilator rate 24 /MIN; Device VENTILATOR; Modified Allen's Test Unable to perform; Site Drawn RIGHT RADIAL
[2021-09-08] MEDS: FENTANYL 2,500MCG/NS250ML(*CRX 2,500 MCG/250 ML BAG 17.5 MCG IV CONT (06:33)
[2021-09-08] MEDS: MINERAL OIL/WHITE PETROLATUM OINTMENT 1 APPLIC EACH EYE ×2 (08:02→21:40)
[2021-09-08] MEDS: LIDOCAINE 5% PATCH 1 PATCH TRANSDERM (08:04)
[2021-09-08 08:30] LABS: Glucose Point of Care 84 mg/dl (65-105)
[2021-09-08] MEDS: CALCIUM GLUC 2,000 MG/NS 100ML 2,000 MG/100 ML BAG 100 MG IVPB (11:01)
[2021-09-08] MEDS: POTASSIUM CHLORIDE 20 MEQ PACKET (FOR LIQUID) 40 MEQ FEED TUBE (11:01)
--- NOTE | 2021-09-08 11:34 | WPDINTPN ---
Progress Note: A&P Assessment and Plan (1) Anemia associated with acute blood loss: Code(s): D62 - Acute posthemorrhagic anemia Status: Acute Assessment and Plan: Patient initially received 4 units of PRBC, 2 units of FFP, 1 unit of cryo. 08/31 2 units of PRBC and 4 units of FFP were given. Patient was also given vitamin K. Hospital does not have andexanet and Kcentra not given due to high risk of new or worsening of her current thrombosis as patient already has PE and and also has COVID-19. Also her last dose of Eliquis was more than 24 hours ago 09/01 2 units of PRBC, DDAVP, tranexamic acid was given 09/02 1 unit of PRBC given 09/03 1 unit of PRBC given overnight 09/05 1 unit PRBC transfused Her hemoglobin has been stable over last few days. Continue monitoring and transfuse as needed Continue to Monitor coags which are in acceptable range at this time CT 08/30 IMPRESSION: 1. Large hematoma in right pelvis extending into the peritoneum with two foci of active extravasation of contrast. 2. Hematomas in the rectus abdominis muscles, right worse than left. 3. Splenic infarcts. Small volume of perisplenic ascites. 4. Diffuse lung disease, consistent with COVID-[address] abdomen pelvis 09/02 3. Large volume of extraperitoneal hematoma in the pelvis centered to the right of midline, mildly worsened from 08/30/21. Moderate volume of hemoperitoneum, worsened from 08/30/21. 4. Moderate bilateral hydronephrosis and hydroureter secondary to mass effect from the pelvic hematoma, worsened from 08/30/21. 5. Hematomas in the rectus abdominis muscles, right worse than left, stable from 08/30/21. 6. Splenic infarcts again seen. 08/31 I wanted to to transfer patient to a facility where patient can get angiogram and possible embolization if ongoing bleed but due to current COVID 19 pandemic there are no ICU beds available. [facility] and they did not have any ICU bed available in any of the 6 hospitals. I gave them patient information and they will call me if a bed opens up. Hospitalist provider called [facility], [facility] to see if they have any bed available General surgery was consulted but no surgical options at this time 09/[address] [facility], [facility] and [facility] again and no beds available. Hospitals in [place] are also not accepting any transfers 09/02 patient remains on wait list at [facility] 09/05 I again confirmed today the patient is on wait list at [facility] and [facility] is still not accepting any transfers At this point the goal is to maintain coags in acceptable range, transfuse blood products as needed to maintain adequate hemoglobin level. It seems the bleeding has stopped at this time. She will need eventually definitive treatment whether vascular and/or surgical for that large hematoma (2) Hemorrhagic shock: Code(s): R57.8 - Other shock Status: Acute Assessment and Plan: Secondary to blood loss and possibly sepsis Improved as patient is now off of vasopressors Monitor closely Patient has received significant amount of volume and is overall volume overloaded. Hold further IV fluids and only administer blood products as needed (3) Sepsis: Code(s): A41.9 - Sepsis, unspecified organism Status: Acute Assessment and Plan: Urine and blood cultures have been negative Sputum culture grew yeast which is likely a colonizer Femoral central venous catheter was removed on 09/05 Her WBC remained elevated Continue vancomycin and imipenem (4) Pulmonary embolism: Qualifiers: Pulmonary embolism type: unspecified Chronicity: acute Acute cor pulmonale presence: without acute cor pulmonale Qualified Code(s): I26.99 - Other pulmonary embolism without acute cor pulmonale Code(s): I26.99 - Other pulmonary embolism without acute cor pulmonale Status: Acute Assessment and Plan: Currently off of anticoagulation secondary to hemorrhagic shock. Not a can
[2021-09-08 11:51] LABS: Glucose Point of Care 85 mg/dl (65-105)
--- NOTE | 2021-09-08 13:45 | P.PNNP_ITS ---
Progress Note: A&P Assessment and Plan (1) JERRY (acute kidney injury): Code(s): N17.9 - Acute kidney failure, unspecified Status: Acute Assessment and Plan: * due to ATN from: * hemorrhagic shock * contrast exposure * obstruction * creatinine continues to rise in association with poor urine output * evaluation to date: * renal ultrasound with evidence of obstruction - s/p nephrostomy tube placement * CPK mildly elevated (but not enough to affect kidney function) * urine electrolytes non-prerenal * s/p adequate volume resuscitation * HD tomorrow * follow trend of repeat labs and UOP for potential renal recovery (2) Bilateral hydronephrosis: Code(s): N13.30 - Unspecified hydronephrosis Status: Acute Assessment and Plan: * as noted by renal ultrasound * CT scan (09/02/20) with moderate bilateral hydronephrosis and hydroureter secondary to mass effect from the pelvic hematoma, worsened from 08/30/21 * s/p bilateral CT-guided nephrostomy tube placement on 09/02/20 * Urology following (3) Anemia associated with acute blood loss: Code(s): D62 - Acute posthemorrhagic anemia Status: Acute Assessment and Plan: * as noted by recent CT scan: * large hematoma in right pelvis extending into the peritoneum with two foci of active extravasation of contrast; hematomas in the rectus abdominis muscles, right worse than left * s/p mulitple blood products (PRBC, FFP, cryo) as well as DDAVP and tranexamic acid * s/p Vitamin K as well given coagulopathy (andexanet unavailable here) * follow H/H and coags * option to transfer to another facility for possible angiogram and possible embolization for ongoing bleed unavailable due to no ICU beds available at other hospitals due to COVID pandemic (4) Hemorrhagic shock: Code(s): R57.8 - Other shock Status: Acute Assessment and Plan: * secondary to blood loss (see #3) * continue transfusion as needed * off vasopressor therapy * s/p aggressive IVF resuscitation * follow trend of hemodynamics (5) Acute respiratory failure with hypoxia: Code(s): J96.01 - Acute respiratory failure with hypoxia Status: Acute Assessment and Plan: * due to cardiac arrest, COVID pneumonia, and pulmonary embolism * continue ventilator support * weaning as able (6) Pneumonia due to COVID-19 virus: Code(s): U07.1 - COVID-19; J12.82 - Pneumonia due to coronavirus disease 2019 Status: Acute Assessment and Plan: * positive by recent testing * on steroids (more so for shock than COVID at this time) * s/p convalscent plasam on 08/22/21 * s/p remdesivir but stopped due to elevated LFTs and renal dysfunction * continue supportive therapy (7) Pulmonary embolism: Qualifiers: Pulmonary embolism type: unspecified Chronicity: acute Acute cor pulmonale presence: without acute cor pulmonale Qualified Code(s): I26.99 - Other pulmonary embolism without acute cor pulmonale Code(s): I26.99 - Other pulmonary embolism without acute cor pulmonale Status: Acute Assessment and Plan: * as diagnosed by CT angiogram of chest * off all anticoagulation due to #3 and #4 (8) Encephalopathy: Code(s): G93.40 - Encephalopathy, unspecified Status: Acute Assessment and Plan: * due toxic metabolic issues but possible anoxic brain injury due to cardiac arrest * CT of head unremarkable * difficult to do full assessment given her other above medical issues * will
--- NOTE | 2021-09-08 13:45 | PM.PNNEP ---
Progress Note: A&P Assessment and Plan (1) JERRY (acute kidney injury): Code(s): N17.9 - Acute kidney failure, unspecified Status: Acute Assessment and Plan: due to ATN from: hemorrhagic shock contrast exposure obstruction creatinine continues to rise in association with poor urine output evaluation to date: renal ultrasound with evidence of obstruction - s/p nephrostomy tube placement CPK mildly elevated (but not enough to affect kidney function) urine electrolytes non-prerenal s/p adequate volume resuscitation HD tomorrow follow trend of repeat labs and UOP for potential renal recovery (2) Bilateral hydronephrosis: Code(s): N13.30 - Unspecified hydronephrosis Status: Acute Assessment and Plan: as noted by renal ultrasound CT scan (09/02/20) with moderate bilateral hydronephrosis and hydroureter secondary to mass effect from the pelvic hematoma, worsened from 08/30/[address] s[address]-guided nephrostomy tube placement on 09/02/20 Urology following (3) Anemia associated with acute blood loss: Code(s): D62 - Acute posthemorrhagic anemia Status: Acute Assessment and Plan: as noted by recent CT scan: large hematoma in right pelvis extending into the peritoneum with two foci of active extravasation of contrast; hematomas in the rectus abdominis muscles, right worse than left s/p mulitple blood products (PRBC, FFP, cryo) as well as DDAVP and tranexamic acid s/p Vitamin K as well given coagulopathy (andexanet unavailable here) follow H/H and coags option to transfer to another facility for possible angiogram and possible embolization for ongoing bleed unavailable due to no ICU beds available at other hospitals due to COVID pandemic (4) Hemorrhagic shock: Code(s): R57.8 - Other shock Status: Acute Assessment and Plan: secondary to blood loss (see #3) continue transfusion as needed off vasopressor therapy s/p aggressive IVF resuscitation follow trend of hemodynamics (5) Acute respiratory failure with hypoxia: Code(s): J96.01 - Acute respiratory failure with hypoxia Status: Acute Assessment and Plan: due to cardiac arrest, COVID pneumonia, and pulmonary embolism continue ventilator support weaning as able (6) Pneumonia due to COVID-19 virus: Code(s): U07.1 - COVID-19; J12.82 - Pneumonia due to coronavirus disease 2019 Status: Acute Assessment and Plan: positive by recent testing on steroids (more so for shock than COVID at this time) s/p convalscent plasam on 08/22/21 s/p remdesivir but stopped due to elevated LFTs and renal dysfunction continue supportive therapy (7) Pulmonary embolism: Qualifiers: Pulmonary embolism type: unspecified Chronicity: acute Acute cor pulmonale presence: without acute cor pulmonale Qualified Code(s): I26.99 - Other pulmonary embolism without acute cor pulmonale Code(s): I26.99 - Other pulmonary embolism without acute cor pulmonale Status: Acute Assessment and Plan: as diagnosed by CT angiogram of chest off all anticoagulation due to #3 and #4 (8) Encephalopathy: Code(s): G93.40 - Encephalopathy, unspecified Status: Acute Assessment and Plan: due toxic metabolic issues but possible anoxic brain injury due to cardiac arrest CT of head unremarkable difficult to do full assessment given her other above medical issues will likely need MRI at some point Will continue to follow. Subjective Date/time seen: 09/08/21 13:45 Remains intubated/sedated and on mechanical ventilation; stable hemodynamics noted at this time; some slight improvement in urine output from nephrostomy tubes; no other acute issues/events noted overnight or earlier this AM. Exam Narrative: General: WD/WN female intubated/sedated on ventilator Heart: normal S1 and S2; no rub Lungs: coarse breath
[2021-09-08] MEDS: dexmedeTOMIDine 400 MCG/100 ML 400 MCG/100 ML BAG 6.25 MCG IV CONT (14:27)
--- NOTE | 2021-09-08 15:35 | PCNFU ---
Nutrition Follow-Up Complete: Inadequate Oral Intake as related to mechanical vent as evidenced by NPO. Goal: Meet estimated nutritional needs Pt. is progressing towards goal. No new goal at this time. Pt current nutrition is Nepro at 20 mls per hour over 22 hours per day. Last recorded weight is 125 kg. Bowel Motility: + BM 09/08/2021 Labs Reviewed:Hgb 8.4, Hct 226.0, Alb 2.8, Na 130, K 3.3, GFR 8, BUN 65, Cr 5.4 Meds Noted: Albutein, Albuterol, Precedex, Fentanyl, Glucagon, Glucose, Nosology, Multivitamin, Propofol, Zoloft, Vancomycin Hcl Skin: No skin breakdown at this time. WNL. Additional Notes: Patient remains on mechanical ventilation. Patient is currently on Nepro at 20 mls per hour over 22 hours per day providing pt. with 792 calories, 36 grams of protein and 320 mls of water with a 30 ml water flush q4. Pt. is tolerating current feeding well. Propofol at 50 mics providing an additional 980.5 calories. Recommend prostat BID to increase protein intake. Will monitor every Saturday and Saturday.
[2021-09-08 16:28] LABS: Glucose Point of Care 83 mg/dl (65-105)
[2021-09-08 21:31] LABS: Glucose Point of Care 94 mg/dl (65-105)
[2021-09-08] MEDS: PROPOFOL IV EMULSION 100 ML 14.86 MG IV CONT (21:36)
[2021-09-08] MEDS: CENTRAL LINE FLUSH 10 ML IV PUSH (21:38)
[2021-09-08] MEDS: dexmedeTOMIDine 400 MCG/100 ML 400 MCG/100 ML BAG 21.88 MCG IV CONT (23:09)
[2021-09-08 23:59] LABS: Glucose Point of Care 89 mg/dl (65-105)
[2021-09-09] VITALS (38 sets, daily range): BP systolic 78–178; BP diastolic 47–103; PULSE 77–119; RESP 23–37; TEMP 35.5–37; O2SAT 92–100
[2021-09-09 04:13] LABS: Hematocrit 29.5 % (37.0-47.0); Hemoglobin 9.6 g/dL (12.0-15.0); Mean Corpuscular HGB Conc 32.5 g/dl (32-36); Mean Corpuscular Volume 95.2 fl (80-100); Mean Platelet Volume 10.5 fl (7.4-10.4); Platelet Count Result 211 k/mm3 (150-375); Red Cell Distribution Width 17.5 % (11.5-14.5); White Blood Count 18.7 K/mm3 (4.5-10.0)
[2021-09-09 04:28] LABS: Alanine Aminotransferase 117 U/L (4-35); Albumin Level 2.9 g/dL (3.5-5.1); Alkaline Phosphatase 116 U/L (38-126); Anion Gap 12 mmol/L (8-16); Aspartate Amino Transferase 57 U/L (14-36); Bilirubin,Total 1.2 mg/dL (0.2-1.3); Blood Urea Nitrogen 72 mg/dL (7-17); Calcium 8.3 mg/dL (8.4-10.2); Carbon Dioxide 18 mmol/L (22-30); Chloride 97 mmol/L (98-107); Estimated CRCL calculation 13 ml/min; Estimated Glomerular Filt Rate 7; Glucose 95 mg/dL (65-110); Magnesium 1.9 mg/dL (1.6-2.3); Phosphorus 6.8 mg/dL (2.5-4.5); Potassium 3.8 mmol/L (3.4-5.0); Sodium 127 mmol/L (137-145)
[2021-09-09] MEDS: dexmedeTOMIDine 400 MCG/100 ML 400 MCG/100 ML BAG 21.88 MCG IV CONT (04:43)
[2021-09-09 04:54] LABS: Base Excess ABG -4.6 mEq/l (+/-2.0); HCO3 ABG 19.8 mEq/l (22.0-26.0); Oxygen Saturation ABG 97.5 % (95.0-100.0); PCO2 ABG 33.8 mmHg (35.0-45.0); Total Hemoglobin 9.9 g/dL (12.0-18.0); pH ABG 7.385 (7.350-7.450)
[2021-09-09 04:55] LABS: Alveolar/Arterial O2 Gradient 146.3 mmHg; Carboxyhemoglobin 0.3 % THb (0-2.0); Methemoglobin ABG 0.5 %THb (0-1.5); Oxygen Content ABG 13.5 %vol (16.0-22.0); Reduced Hemoglobin 3.2 %THb (0-5.0)
[2021-09-09 04:56] LABS: Device VENTILATOR; Fractional Inspired Oxygen 40 %; Modified Allen's Test Pass; Site Drawn LEFT RADIAL
[2021-09-09 04:57] LABS: Arterial Blood Gas PEEP 5 cmH2O; Arterial Blood Gas Tidal Volume 400 ml; Arterial Blood Gas Vent Mode CMV; Arterial Blood Gas Ventilator rate 24 /MIN
[2021-09-09] MEDS: MINERAL OIL/WHITE PETROLATUM OINTMENT 1 APPLIC EACH EYE ×2 (09:00→20:10)
[2021-09-09 09:16] LABS: Glucose Point of Care 101 mg/dl (65-105)
[2021-09-09] MEDS: PROPOFOL IV EMULSION 100 ML 29.71 MG IV CONT (10:00)
[2021-09-09] MEDS: EPOETIN ALFA-EPBX 10,000 UNITS/ML VIAL 10000 UNITS IV PUSH (11:45)
--- NOTE | 2021-09-09 11:53 | P.PNNP_ITS ---
Progress Note: A&P Assessment and Plan (1) JERRY (acute kidney injury): Code(s): N17.9 - Acute kidney failure, unspecified Status: Acute Assessment and Plan: * due to ATN from: * hemorrhagic shock * contrast exposure * obstruction * creatinine continues to rise in association with poor urine output * evaluation to date: * renal ultrasound with evidence of obstruction - s/p nephrostomy tube placement * CPK mildly elevated (but not enough to affect kidney function) * urine electrolytes non-prerenal * s/p adequate volume resuscitation * HD under way * urine output seems a little higher now. Will try diuretics over the next couple of days and see how she does (2) Bilateral hydronephrosis: Code(s): N13.30 - Unspecified hydronephrosis Status: Acute Assessment and Plan: * as noted by renal ultrasound * CT scan (09/02/20) with moderate bilateral hydronephrosis and hydroureter secondary to mass effect from the pelvic hematoma, worsened from 08/30/21 * s/p bilateral CT-guided nephrostomy tube placement on 09/02/20 * Urology following (3) Anemia associated with acute blood loss: Code(s): D62 - Acute posthemorrhagic anemia Status: Acute Assessment and Plan: * as noted by recent CT scan: * large hematoma in right pelvis extending into the peritoneum with two foci of active extravasation of contrast; hematomas in the rectus abdominis muscles, right worse than left * s/p mulitple blood products (PRBC, FFP, cryo) as well as DDAVP and tranexamic acid * s/p Vitamin K as well given coagulopathy (andexanet unavailable here) * hemoglobin 9.6 today, up from 8.4 yesterday. * option to transfer to another facility for possible angiogram and possible embolization for ongoing bleed unavailable due to no ICU beds available at other hospitals due to COVID pandemic (4) Hemorrhagic shock: Code(s): R57.8 - Other shock Status: Acute Assessment and Plan: * secondary to blood loss (see #3) * continue transfusion as needed * off vasopressor therapy * s/p aggressive IVF resuscitation * follow trend of hemodynamics (5) Acute respiratory failure with hypoxia: Code(s): J96.01 - Acute respiratory failure with hypoxia Status: Acute Assessment and Plan: * due to cardiac arrest, COVID pneumonia, and pulmonary embolism * continue ventilator support (6) Pneumonia due to COVID-19 virus: Code(s): U07.1 - COVID-19; J12.82 - Pneumonia due to coronavirus disease 2019 Status: Acute Assessment and Plan: * positive by recent testing * on steroids (more so for shock than COVID at this time) * s/p convalscent plasam on 08/22/21 * s/p remdesivir but stopped due to elevated LFTs and renal dysfunction * continue supportive therapy (7) Pulmonary embolism: Qualifiers: Pulmonary embolism type: unspecified Chronicity: acute Acute cor pulmonale presence: without acute cor pulmonale Qualified Code(s): I26.99 - Other pulmonary embolism without acute cor pulmonale Code(s): I26.99 - Other pulmonary embolism without acute cor pulmonale Status: Acute Assessment and Plan: * as diagnosed by CT angiogram of chest * off all anticoagulation due to #3 and #4 (8) Encephalopathy: Code(s): G93.40 - Encephalopathy, unspecified Status: Acute Assessment and Plan: * Currently sedated Subjective Date/time seen: 09/09/21 11:53 Interval history: patient is sedated and on ventilator
--- NOTE | 2021-09-09 11:53 | PM.PNNEP ---
Progress Note: A&P Assessment and Plan (1) JERRY (acute kidney injury): Code(s): N17.9 - Acute kidney failure, unspecified Status: Acute Assessment and Plan: due to ATN from: hemorrhagic shock contrast exposure obstruction creatinine continues to rise in association with poor urine output evaluation to date: renal ultrasound with evidence of obstruction - s/p nephrostomy tube placement CPK mildly elevated (but not enough to affect kidney function) urine electrolytes non-prerenal s/p adequate volume resuscitation HD under way urine output seems a little higher now. Will try diuretics over the next couple of days and see how she does (2) Bilateral hydronephrosis: Code(s): N13.30 - Unspecified hydronephrosis Status: Acute Assessment and Plan: as noted by renal ultrasound CT scan (09/02/20) with moderate bilateral hydronephrosis and hydroureter secondary to mass effect from the pelvic hematoma, worsened from 08/30/[address]-guided nephrostomy tube placement on 09/02/20 Urology following (3) Anemia associated with acute blood loss: Code(s): D62 - Acute posthemorrhagic anemia Status: Acute Assessment and Plan: as noted by recent CT scan: large hematoma in right pelvis extending into the peritoneum with two foci of active extravasation of contrast; hematomas in the rectus abdominis muscles, right worse than left s/p mulitple blood products (PRBC, FFP, cryo) as well as DDAVP and tranexamic acid s/p Vitamin K as well given coagulopathy (andexanet unavailable here) hemoglobin 9.6 today, up from 8.4 yesterday. option to transfer to another facility for possible angiogram and possible embolization for ongoing bleed unavailable due to no ICU beds available at other hospitals due to COVID pandemic (4) Hemorrhagic shock: Code(s): R57.8 - Other shock Status: Acute Assessment and Plan: secondary to blood loss (see #3) continue transfusion as needed off vasopressor therapy s/p aggressive IVF resuscitation follow trend of hemodynamics (5) Acute respiratory failure with hypoxia: Code(s): J96.01 - Acute respiratory failure with hypoxia Status: Acute Assessment and Plan: due to cardiac arrest, COVID pneumonia, and pulmonary embolism continue ventilator support (6) Pneumonia due to COVID-19 virus: Code(s): U07.1 - COVID-19; J12.82 - Pneumonia due to coronavirus disease 2019 Status: Acute Assessment and Plan: positive by recent testing on steroids (more so for shock than COVID at this time) s/p convalscent plasam on 08/22/21 s/p remdesivir but stopped due to elevated LFTs and renal dysfunction continue supportive therapy (7) Pulmonary embolism: Qualifiers: Pulmonary embolism type: unspecified Chronicity: acute Acute cor pulmonale presence: without acute cor pulmonale Qualified Code(s): I26.99 - Other pulmonary embolism without acute cor pulmonale Code(s): I26.99 - Other pulmonary embolism without acute cor pulmonale Status: Acute Assessment and Plan: as diagnosed by CT angiogram of chest off all anticoagulation due to #3 and #4 (8) Encephalopathy: Code(s): G93.40 - Encephalopathy, unspecified Status: Acute Assessment and Plan: Currently sedated Subjective Date/time seen: 09/09/21 11:53 Interval history: patient is sedated and on ventilator. She is on dialysis and tolerating it well. She was seen at 10:30 a.m. Exam Narrative: General: WD/WN female intubated/sedated on ventilator Heart: normal S1 and S2; no rub or gallop Lungs: coarse breath sounds Abdomen: soft, nontender, nondistended; RLQ bruising noted Extremities: no cyanosis or clubbing; trace edema Skin: no rash Objective Data Vital Signs Vital Signs: Vital Signs - 24 hr 09/08/21 12:00 09/08/21 14:00 09/08/21 14:03
[2021-09-09 12:34] LABS: Glucose Point of Care 96 mg/dl (65-105)
--- NOTE | 2021-09-09 12:57 | WPDINTPN ---
Progress Note: A&P Assessment and Plan (1) Anemia associated with acute blood loss: Code(s): D62 - Acute posthemorrhagic anemia Status: Acute Assessment and Plan: Patient initially received 4 units of PRBC, 2 units of FFP, 1 unit of cryo. 08/31 2 units of PRBC and 4 units of FFP were given. Patient was also given vitamin K. Hospital does not have andexanet and Kcentra not given due to high risk of new or worsening of her current thrombosis as patient already has PE and and also has COVID-19. Also her last dose of Eliquis was more than 24 hours ago 09/01 2 units of PRBC, DDAVP, tranexamic acid was given 09/02 1 unit of PRBC given 09/03 1 unit of PRBC given overnight 09/05 1 unit PRBC transfused Her hemoglobin has been stable over last few days. Continue monitoring and transfuse as needed Continue to Monitor coags which are in acceptable range at this time CT 08/30 IMPRESSION: 1. Large hematoma in right pelvis extending into the peritoneum with two foci of active extravasation of contrast. 2. Hematomas in the rectus abdominis muscles, right worse than left. 3. Splenic infarcts. Small volume of perisplenic ascites. 4. Diffuse lung disease, consistent with COVID-[address] abdomen pelvis 09/02 3. Large volume of extraperitoneal hematoma in the pelvis centered to the right of midline, mildly worsened from 08/30/21. Moderate volume of hemoperitoneum, worsened from 08/30/21. 4. Moderate bilateral hydronephrosis and hydroureter secondary to mass effect from the pelvic hematoma, worsened from 08/30/21. 5. Hematomas in the rectus abdominis muscles, right worse than left, stable from 08/30/21. 6. Splenic infarcts again seen. 08/31 I wanted to to transfer patient to a facility where patient can get angiogram and possible embolization if ongoing bleed but due to current COVID 19 pandemic there are no ICU beds available. I called [facility] including [facility] and they did not have any ICU bed available in any of the 6 hospitals. I gave them patient information and they will call me if a bed opens up. Hospitalist provider called [facility], [facility] to see if they have any bed available General surgery was consulted but no surgical options at this time 09/01 I called [facility], [facility] and [facility] again and no beds available. Hospitals in [place] are also not accepting any transfers 09/02 patient remains on wait list at [facility] 09/05 I again confirmed today the patient is on wait list at [facility] and [facility] is still not accepting any transfers At this point the goal is to maintain coags in acceptable range, transfuse blood products as needed to maintain adequate hemoglobin level. It seems the bleeding has stopped at this time. She will need eventually definitive treatment whether vascular and/or surgical for that large hematoma (2) Hemorrhagic shock: Code(s): R57.8 - Other shock Status: Acute Assessment and Plan: Secondary to blood loss and possibly sepsis Improved as patient is now off of vasopressors Monitor closely Patient has received significant amount of volume and is overall volume overloaded. Hold further IV fluids and only administer blood products as needed (3) Sepsis: Code(s): A41.9 - Sepsis, unspecified organism Status: Acute Assessment and Plan: Urine and blood cultures have been negative Sputum culture grew yeast which is likely a colonizer Femoral central venous catheter was removed on 09/05 Her WBC remained elevated Continue vancomycin and imipenem (4) Pulmonary embolism: Qualifiers: Pulmonary embolism type: unspecified Chronicity: acute Acute cor pulmonale presence: without acute cor pulmonale Qualified Code(s): I26.99 - Other pulmonary embolism without acute cor pulmonale Code(s): I26.99 - Other pulmonary embolism without acute cor pulmonale Status: Acute Assessment and Plan: Currently off of anticoagulation secondary to hemorrhagic shock. Not a can
[2021-09-09] MEDS: BUMETANIDE INJ 1 MG/4 ML VIAL IV PUSH ×2 (13:08→17:51)
[2021-09-09 14:59] LABS: Vancomycin Random 12.4 ug/mL (10-20)
[2021-09-09] MEDS: PROPOFOL IV EMULSION 100 ML 14.86 MG IV CONT (15:46)
[2021-09-09] MEDS: dexmedeTOMIDine 400 MCG/100 ML 400 MCG/100 ML BAG 28.13 MCG IV CONT ×3 (15:47→22:13)
[2021-09-09 16:28] LABS: Glucose Point of Care 99 mg/dl (65-105)
[2021-09-09] MEDS: CENTRAL LINE FLUSH 10 ML IV PUSH (18:40)
[2021-09-09 20:29] LABS: Glucose Point of Care 139 mg/dl (65-105)
[2021-09-10] VITALS (26 sets, daily range): BP systolic 99–167; BP diastolic 60–97; PULSE 87–112; RESP 24–37; TEMP 36.6–37.2; O2SAT 95–99
[2021-09-10 00:18] LABS: Glucose Point of Care 97 mg/dl (65-105)
[2021-09-10] MEDS: dexmedeTOMIDine 400 MCG/100 ML 400 MCG/100 ML BAG 21.88 MCG IV CONT (04:45)
[2021-09-10 05:15] LABS: Hematocrit 29.1 % (37.0-47.0); Hemoglobin 9.7 g/dL (12.0-15.0); Mean Corpuscular HGB Conc 33.3 g/dl (32-36); Mean Corpuscular Hemoglobin 30.8 pg (26-34); Mean Corpuscular Volume 92.4 fl (80-100); Mean Platelet Volume 10.8 fl (7.4-10.4); Platelet Count Result 189 k/mm3 (150-375); Red Blood Count 3.15 M/mm3 (4.2-5.4); Red Cell Distribution Width 18.1 % (11.5-14.5); White Blood Count 15.8 K/mm3 (4.5-10.0)
[2021-09-10 05:33] LABS: Base Excess ABG 0.1 mEq/l (+/-2.0); HCO3 ABG 23.8 mEq/l (22.0-26.0); PCO2 ABG 34.7 mmHg (35.0-45.0); PO2 ABG 76.3 mmHg (80.0-100.0); pH ABG 7.455 (7.350-7.450)
[2021-09-10 05:35] LABS: Alveolar/Arterial O2 Gradient 96.8 mmHg; Carboxyhemoglobin 0.6 % THb (0-2.0); Methemoglobin ABG 0.6 %THb (0-1.5); Oxygen Content ABG 10.4 %vol (16.0-22.0); Oxyhemoglobin 94.1 % THb (90.0-100.0)
[2021-09-10 05:35] LABS: Alanine Aminotransferase 81 U/L (4-35); Albumin Level 2.8 g/dL (3.5-5.1); Alkaline Phosphatase 159 U/L (38-126); Anion Gap 11 mmol/L (8-16); Aspartate Amino Transferase 44 U/L (14-36); Bilirubin,Total 1.1 mg/dL (0.2-1.3); Blood Urea Nitrogen 50 mg/dL (7-17); Calcium 8.3 mg/dL (8.4-10.2); Carbon Dioxide 22 mmol/L (22-30); Chloride 97 mmol/L (98-107); Estimated CRCL calculation 19 ml/min; Estimated Glomerular Filt Rate 11; Glucose 116 mg/dL (65-110); Magnesium 1.9 mg/dL (1.6-2.3); Phosphorus 5.8 mg/dL (2.5-4.5); Potassium 3.7 mmol/L (3.4-5.0); Sodium 130 mmol/L (137-145)
[2021-09-10 05:36] LABS: Device VENTILATOR; Fractional Inspired Oxygen 30 %; Modified Allen's Test Pass; PO2 FiO2 Ratio Arterial Blood 2.54 %; Reduced Hemoglobin 4.7 %THb (0-5.0); Site Drawn RIGHT RADIAL
[2021-09-10 06:21] LABS: Total Hemoglobin 7.8 g/dL (12.0-18.0)
[2021-09-10] MEDS: LIDOCAINE 5% PATCH 1 PATCH TRANSDERM (09:33)
[2021-09-10] MEDS: MINERAL OIL/WHITE PETROLATUM OINTMENT 1 APPLIC EACH EYE ×2 (09:33→20:58)
[2021-09-10] MEDS: BUMETANIDE INJ 1 MG/4 ML VIAL IV PUSH ×2 (09:33→16:01)
[2021-09-10 09:46] LABS: Glucose Point of Care 102 mg/dl (65-105)
[2021-09-10] MEDS: dexmedeTOMIDine 400 MCG/100 ML 400 MCG/100 ML BAG 15.63 MCG IV CONT ×3 (09:47→23:22)
--- NOTE | 2021-09-10 10:08 | P.PNNP_ITS ---
Progress Note: A&P Assessment and Plan (1) JERRY (acute kidney injury): Code(s): N17.9 - Acute kidney failure, unspecified Status: Acute Assessment and Plan: * due to ATN from: * hemorrhagic shock * contrast exposure * obstruction * evaluation to date: * renal ultrasound with evidence of obstruction - s/p nephrostomy tube placement * CPK mildly elevated (but not enough to affect kidney function) * urine electrolytes non-prerenal * She had dialysis yesterday. * Her creatinine is better Because of the dialysis. * However, her urine output was up to 2700 yesterday. It looks like she might be turning around. hopefully the creatinine and BUN will come down as well and she will need anymore dialysis. * On Bumex 1 mg b.i.d.. (2) Bilateral hydronephrosis: Code(s): N13.30 - Unspecified hydronephrosis Status: Acute Assessment and Plan: * as noted by renal ultrasound * CT scan (09/02/20) with moderate bilateral hydronephrosis and hydroureter secondary to mass effect from the pelvic hematoma, worsened from 08/30/21 * s/p bilateral CT-guided nephrostomy tube placement on 09/02/20 * Urology following (3) Anemia associated with acute blood loss: Code(s): D62 - Acute posthemorrhagic anemia Status: Acute Assessment and Plan: * as noted by recent CT scan: * large hematoma in right pelvis extending into the peritoneum with two foci of active extravasation of contrast; hematomas in the rectus abdominis muscles, right worse than left * Hemoglobin stable between yesterday and today. (4) Hemorrhagic shock: Code(s): R57.8 - Other shock Status: Acute Assessment and Plan: * resolved. * off pressors. (5) Acute respiratory failure with hypoxia: Code(s): J96.01 - Acute respiratory failure with hypoxia Status: Acute Assessment and Plan: * due to cardiac arrest, COVID pneumonia, and pulmonary embolism * continue ventilator support (6) Pneumonia due to COVID-19 virus: Code(s): U07.1 - COVID-19; J12.82 - Pneumonia due to coronavirus disease 2019 Status: Acute Assessment and Plan: * positive by recent testing * on steroids (more so for shock than COVID at this time) * s/p convalscent plasam on 08/22/21 * s/p remdesivir but stopped due to elevated LFTs and renal dysfunction * continue supportive therapy (7) Pulmonary embolism: Qualifiers: Pulmonary embolism type: unspecified Chronicity: acute Acute cor pulmonale presence: without acute cor pulmonale Qualified Code(s): I26.99 - Other pulmonary embolism without acute cor pulmonale Code(s): I26.99 - Other pulmonary embolism without acute cor pulmonale Status: Acute Assessment and Plan: * as diagnosed by CT angiogram of chest * off all anticoagulation due to #3 and #4 (8) Encephalopathy: Code(s): G93.40 - Encephalopathy, unspecified Status: Acute Assessment and Plan: * Currently sedated Subjective Date/time seen: 09/10/21 10:08 Interval history: patient is sedated and on ventilator. Exam Narrative: General: WD/WN female intubated/sedated on ventilator Heart: normal S1 and S2; no rub or gallop Lungs: coarse breath sounds Abdomen: soft, nontender, nondistended; RLQ bruising noted Extremities: trace edema Skin: no rash or subcu nodules Objective Data Vital Signs Vital Signs: Vital Signs -
--- NOTE | 2021-09-10 10:08 | PM.PNNEP ---
Progress Note: A&P Assessment and Plan (1) JERRY (acute kidney injury): Code(s): N17.9 - Acute kidney failure, unspecified Status: Acute Assessment and Plan: due to ATN from: hemorrhagic shock contrast exposure obstruction evaluation to date: renal ultrasound with evidence of obstruction - s/p nephrostomy tube placement CPK mildly elevated (but not enough to affect kidney function) urine electrolytes non-prerenal She had dialysis yesterday. Her creatinine is better Because of the dialysis. However, her urine output was up to 2700 yesterday. It looks like she might be turning around. hopefully the creatinine and BUN will come down as well and she will need anymore dialysis. On Bumex 1 mg b.i.d.. (2) Bilateral hydronephrosis: Code(s): N13.30 - Unspecified hydronephrosis Status: Acute Assessment and Plan: as noted by renal ultrasound CT scan (09/02/20) with moderate bilateral hydronephrosis and hydroureter secondary to mass effect from the pelvic hematoma, worsened from 08/30/[address]-guided nephrostomy tube placement on 09/02/20 Urology following (3) Anemia associated with acute blood loss: Code(s): D62 - Acute posthemorrhagic anemia Status: Acute Assessment and Plan: as noted by recent CT scan: large hematoma in right pelvis extending into the peritoneum with two foci of active extravasation of contrast; hematomas in the rectus abdominis muscles, right worse than left Hemoglobin stable between yesterday and today. (4) Hemorrhagic shock: Code(s): R57.8 - Other shock Status: Acute Assessment and Plan: resolved. off pressors. (5) Acute respiratory failure with hypoxia: Code(s): J96.01 - Acute respiratory failure with hypoxia Status: Acute Assessment and Plan: due to cardiac arrest, COVID pneumonia, and pulmonary embolism continue ventilator support (6) Pneumonia due to COVID-19 virus: Code(s): U07.1 - COVID-19; J12.82 - Pneumonia due to coronavirus disease 2019 Status: Acute Assessment and Plan: positive by recent testing on steroids (more so for shock than COVID at this time) s/p convalscent plasam on 08/22/21 s/p remdesivir but stopped due to elevated LFTs and renal dysfunction continue supportive therapy (7) Pulmonary embolism: Qualifiers: Pulmonary embolism type: unspecified Chronicity: acute Acute cor pulmonale presence: without acute cor pulmonale Qualified Code(s): I26.99 - Other pulmonary embolism without acute cor pulmonale Code(s): I26.99 - Other pulmonary embolism without acute cor pulmonale Status: Acute Assessment and Plan: as diagnosed by CT angiogram of chest off all anticoagulation due to #3 and #4 (8) Encephalopathy: Code(s): G93.40 - Encephalopathy, unspecified Status: Acute Assessment and Plan: Currently sedated Subjective Date/time seen: 09/10/21 10:08 Interval history: patient is sedated and on ventilator. Exam Narrative: General: WD/WN female intubated/sedated on ventilator Heart: normal S1 and S2; no rub or gallop Lungs: coarse breath sounds Abdomen: soft, nontender, nondistended; RLQ bruising noted Extremities: trace edema Skin: no rash or subcu nodules Objective Data Vital Signs Vital Signs: Vital Signs - 24 hr 09/09/21 10:15 09/09/21 10:30 09/09/21 10:45 Temperature Pulse Rate 102 H 106 H 108 H Respiratory Rate Blood Pressure 91/67 L 101/73 114/82 Pulse Oximetry 09/09/21 11:00 09/09/21 11:15 09/09/21 11:30 Temperature Pulse Rate 106 H 113 H 115 H Respiratory Rate Blood Pressure 106/87 138/101 H 142/91 H Pulse Oximetry 09/09/21 11:35 09/09/21 11:45 09/09/21 12:00 Temperature 36.7 C Pulse Rate 116 H 119 H 104 H Respiratory Rate 36 H Blood Pressure 141/65 H 115/71 Pulse Oximetry 96
--- NOTE | 2021-09-10 11:11 | WPDINTPN ---
Progress Note: A&P Assessment and Plan (1) Anemia associated with acute blood loss: Code(s): D62 - Acute posthemorrhagic anemia Status: Acute Assessment and Plan: Patient initially received 4 units of PRBC, 2 units of FFP, 1 unit of cryo. 08/31 2 units of PRBC and 4 units of FFP were given. Patient was also given vitamin K. Hospital does not have andexanet and Kcentra not given due to high risk of new or worsening of her current thrombosis as patient already has PE and and also has COVID-19. Also her last dose of Eliquis was more than 24 hours ago 09/01 2 units of PRBC, DDAVP, tranexamic acid was given 09/02 1 unit of PRBC given 09/03 1 unit of PRBC given overnight 09/05 1 unit PRBC transfused Her hemoglobin has been stable over last few days. Continue monitoring and transfuse as needed Continue to Monitor coags which are in acceptable range at this time CT 08/30 IMPRESSION: 1. Large hematoma in right pelvis extending into the peritoneum with two foci of active extravasation of contrast. 2. Hematomas in the rectus abdominis muscles, right worse than left. 3. Splenic infarcts. Small volume of perisplenic ascites. 4. Diffuse lung disease, consistent with COVID-[address] abdomen pelvis 09/02 3. Large volume of extraperitoneal hematoma in the pelvis centered to the right of midline, mildly worsened from 08/30/21. Moderate volume of hemoperitoneum, worsened from 08/30/21. 4. Moderate bilateral hydronephrosis and hydroureter secondary to mass effect from the pelvic hematoma, worsened from 08/30/21. 5. Hematomas in the rectus abdominis muscles, right worse than left, stable from 08/30/21. 6. Splenic infarcts again seen. 08/31 I wanted to to transfer patient to a facility where patient can get angiogram and possible embolization if ongoing bleed but due to current COVID 19 pandemic there are no ICU beds available. [facility] called [facility] including [facility] and they did not have any ICU bed available in any of the 6 hospitals. I gave them patient information and they will call me if a bed opens up. Hospitalist provider called [facility], [facility] to see if they have any bed available General surgery was consulted but no surgical options at this time 09/01 I called [facility], [facility] and [facility] again and no beds available. Hospitals in [place] are also not accepting any transfers 09/02 patient remains on wait list at [facility] 09/05 I again confirmed today the patient is on wait list at [facility] and [facility] is still not accepting any transfers At this point the goal is to maintain coags in acceptable range, transfuse blood products as needed to maintain adequate hemoglobin level. It seems the bleeding has stopped at this time. She will need eventually definitive treatment whether vascular and/or surgical for that large hematoma (2) Hemorrhagic shock: Code(s): R57.8 - Other shock Status: Acute Assessment and Plan: Secondary to blood loss and possibly sepsis Improved as patient is now off of vasopressors Monitor closely Patient has received significant amount of volume and is overall volume overloaded. Hold further IV fluids and only administer blood products as needed (3) Sepsis: Code(s): A41.9 - Sepsis, unspecified organism Status: Acute Assessment and Plan: Urine and blood cultures have been negative Sputum culture grew yeast which is likely a colonizer Femoral central venous catheter was removed on 09/05 her WBCs improving Continue vancomycin and imipenem (4) Pulmonary embolism: Qualifiers: Pulmonary embolism type: unspecified Chronicity: acute Acute cor pulmonale presence: without acute cor pulmonale Qualified Code(s): I26.99 - Other pulmonary embolism without acute cor pulmonale Code(s): I26.99 - Other pulmonary embolism without acute cor pulmonale Status: Acute Assessment and Plan: Currently off of anticoagulation secondary to hemorrhagic shock. Not a candidate
[2021-09-10] MEDS: dexmedeTOMIDine 400 MCG/100 ML 400 MCG/100 ML BAG 12.5 MCG IV CONT (15:57)
[2021-09-10 17:53] LABS: Glucose Point of Care 90 mg/dl (65-105)
[2021-09-10 17:54] LABS: Glucose Point of Care 118 mg/dl (65-105)
[2021-09-10] MEDS: LABETALOL HCL INJ 100 MG/20 ML VIAL 20 MG IV PUSH (18:04)
[2021-09-10] MEDS: CENTRAL LINE FLUSH 10 ML IV PUSH (18:05)
[2021-09-10 21:20] LABS: Glucose Point of Care 100 mg/dl (65-105)
[2021-09-11] VITALS (40 sets, daily range): BP systolic 70–173; BP diastolic 52–116; PULSE 80–117; RESP 17–40; TEMP 35.6–37; O2SAT 95–100
[2021-09-11 00:07] LABS: Glucose Point of Care 101 mg/dl (65-105)
[2021-09-11] MEDS: dexmedeTOMIDine 400 MCG/100 ML 400 MCG/100 ML BAG 12.5 MCG IV CONT (05:06)
[2021-09-11 05:32] LABS: Hematocrit 28.1 % (37.0-47.0); Hemoglobin 9.2 g/dL (12.0-15.0); Mean Corpuscular HGB Conc 32.7 g/dl (32-36); Mean Corpuscular Hemoglobin 30.4 pg (26-34); Mean Corpuscular Volume 92.7 fl (80-100); Platelet Count Result 175 k/mm3 (150-375); Red Blood Count 3.03 M/mm3 (4.2-5.4); Red Cell Distribution Width 17.5 % (11.5-14.5); White Blood Count 14.1 K/mm3 (4.5-10.0)
[2021-09-11 05:45] LABS: Phosphorus 7.7 mg/dL (2.5-4.5)
[2021-09-11 05:48] LABS: Triglycerides 154 mg/dL (<150)
[2021-09-11 06:02] LABS: Alanine Aminotransferase 54 U/L (4-35); Albumin Level 2.9 g/dL (3.5-5.1); Alkaline Phosphatase 131 U/L (38-126); Anion Gap 11 mmol/L (8-16); Aspartate Amino Transferase 35 U/L (14-36); Bilirubin,Total 1.1 mg/dL (0.2-1.3); Blood Urea Nitrogen 63 mg/dL (7-17); Calcium 8.5 mg/dL (8.4-10.2); Carbon Dioxide 23 mmol/L (22-30); Chloride 95 mmol/L (98-107); Estimated CRCL calculation 15 ml/min; Estimated Glomerular Filt Rate 9; Glucose 129 mg/dL (65-110); Potassium 3.8 mmol/L (3.4-5.0); Sodium 129 mmol/L (137-145)
[2021-09-11 06:14] LABS: Alveolar/Arterial O2 Gradient 68.7 mmHg; Base Excess ABG -0.9 mEq/l (+/-2.0); Carboxyhemoglobin 0.8 % THb (0-2.0); Fractional Inspired Oxygen 28 %; HCO3 ABG 22.7 mEq/l (22.0-26.0); Methemoglobin ABG 0.4 %THb (0-1.5); Oxygen Content ABG 24.2 %vol (16.0-22.0); Oxygen Saturation ABG 97.1 % (95.0-100.0); Oxyhemoglobin 95.5 % THb (90.0-100.0); PO2 ABG 89.6 mmHg (80.0-100.0); Reduced Hemoglobin 3.3 %THb (0-5.0); pH ABG 7.429 (7.350-7.450)
[2021-09-11 06:16] LABS: Device VENTILATOR; Modified Allen's Test Pass; Site Drawn RIGHT RADIAL
[2021-09-11 06:17] LABS: Arterial Blood Gas PEEP 5 cmH2O; Arterial Blood Gas Tidal Volume 370 ml; Arterial Blood Gas Vent Mode CMV; Arterial Blood Gas Ventilator rate 24 /MIN
[2021-09-11] MEDS: MINERAL OIL/WHITE PETROLATUM OINTMENT 1 APPLIC EACH EYE ×2 (08:13→20:08)
[2021-09-11] MEDS: LIDOCAINE 5% PATCH 1 PATCH TRANSDERM (08:13)
[2021-09-11] MEDS: BUMETANIDE INJ 1 MG/4 ML VIAL IV PUSH ×2 (08:13→17:40)
[2021-09-11 08:19] LABS: Glucose Point of Care 95 mg/dl (65-105)
[2021-09-11 09:50] LABS: Arterial Blood Gas PEEP 5 cmH2O; Arterial Blood Gas Tidal Volume 400 ml; Arterial Blood Gas Vent Mode CMV; Arterial Blood Gas Ventilator rate 400 /MIN
[2021-09-11] MEDS: LABETALOL HCL INJ 100 MG/20 ML VIAL 20 MG IV PUSH (11:03)
--- NOTE | 2021-09-11 11:11 | P.PNNP_ITS ---
Progress Note: A&P Assessment and Plan (1) JERRY (acute kidney injury): Code(s): N17.9 - Acute kidney failure, unspecified Status: Acute Assessment and Plan: * due to ATN from: * hemorrhagic shock * contrast exposure * obstruction * evaluation to date: * renal ultrasound with evidence of obstruction - s/p nephrostomy tube placement * CPK mildly elevated (but not enough to affect kidney function) * urine electrolytes non-prerenal * She had dialysis yesterday. * Her creatinine is up a little bit from 4.2-5.0. * However, her urine output was high yesterday. And good overnight as well. * On Bumex 1 mg b.i.d.. * Will go ahead and treat her and just take a little bit of fluid off. I do not want to drop her pressure. (2) Bilateral hydronephrosis: Code(s): N13.30 - Unspecified hydronephrosis Status: Acute Assessment and Plan: * as noted by renal ultrasound * CT scan (09/02/20) with moderate bilateral hydronephrosis and hydroureter secondary to mass effect from the pelvic hematoma, worsened from 08/30/21 * s/p bilateral CT-guided nephrostomy tube placement on 09/02/20 * Urology following (3) Anemia associated with acute blood loss: Code(s): D62 - Acute posthemorrhagic anemia Status: Acute Assessment and Plan: * as noted by recent CT scan: * large hematoma in right pelvis extending into the peritoneum with two foci of active extravasation of contrast; hematomas in the rectus abdominis muscles, right worse than left * Hemoglobin stable between yesterday and today. (4) Hemorrhagic shock: Code(s): R57.8 - Other shock Status: Acute Assessment and Plan: * resolved. * off pressors. (5) Acute respiratory failure with hypoxia: Code(s): J96.01 - Acute respiratory failure with hypoxia Status: Acute Assessment and Plan: * due to cardiac arrest, COVID pneumonia, and pulmonary embolism * continue ventilator support (6) Pneumonia due to COVID-19 virus: Code(s): U07.1 - COVID-19; J12.82 - Pneumonia due to coronavirus disease 2018 Status: Acute Assessment and Plan: * positive by recent testing * on steroids (more so for shock than COVID at this time) * s/p convalscent plasam on 08/22/21 * s/p remdesivir but stopped due to elevated LFTs and renal dysfunction * continue supportive therapy (7) Pulmonary embolism: Qualifiers: Pulmonary embolism type: unspecified Chronicity: acute Acute cor pulmonale presence: without acute cor pulmonale Qualified Code(s): I26.99 - Other pulmonary embolism without acute cor pulmonale Code(s): I26.99 - Other pulmonary embolism without acute cor pulmonale Status: Acute Assessment and Plan: * as diagnosed by CT angiogram of chest * off all anticoagulation due to #3 and #4 (8) Encephalopathy: Code(s): G93.40 - Encephalopathy, unspecified Status: Acute Assessment and Plan: * Currently sedated Subjective Date/time seen: 09/11/21 11:11 Interval history: patient is sedated and on ventilator. cannot give a history Exam Narrative: General: WD/WN female intubated/sedated on ventilator Heart: normal S1 and S2; no rub Lungs: coarse breath sounds Abdomen: soft, nontender, nondistended; RLQ bruising noted Extremities: trace edema and no cyanosis Skin: no rash or subcu nodules Objective Data Vital Signs Vital Signs:
--- NOTE | 2021-09-11 11:11 | PM.PNNEP ---
Progress Note: A&P Assessment and Plan (1) JERRY (acute kidney injury): Code(s): N17.9 - Acute kidney failure, unspecified Status: Acute Assessment and Plan: due to ATN from: hemorrhagic shock contrast exposure obstruction evaluation to date: renal ultrasound with evidence of obstruction - s/p nephrostomy tube placement CPK mildly elevated (but not enough to affect kidney function) urine electrolytes non-prerenal She had dialysis yesterday. Her creatinine is up a little bit from 4.2-5.0. However, her urine output was high yesterday. And good overnight as well. On Bumex 1 mg b.i.d.. Will go ahead and treat her and just take a little bit of fluid off. I do not want to drop her pressure. (2) Bilateral hydronephrosis: Code(s): N13.30 - Unspecified hydronephrosis Status: Acute Assessment and Plan: as noted by renal ultrasound CT scan (09/02/20) with moderate bilateral hydronephrosis and hydroureter secondary to mass effect from the pelvic hematoma, worsened from 08/30/[address] s[address]-guided nephrostomy tube placement on 09/02/20 Urology following (3) Anemia associated with acute blood loss: Code(s): D62 - Acute posthemorrhagic anemia Status: Acute Assessment and Plan: as noted by recent CT scan: large hematoma in right pelvis extending into the peritoneum with two foci of active extravasation of contrast; hematomas in the rectus abdominis muscles, right worse than left Hemoglobin stable between yesterday and today. (4) Hemorrhagic shock: Code(s): R57.8 - Other shock Status: Acute Assessment and Plan: resolved. off pressors. (5) Acute respiratory failure with hypoxia: Code(s): J96.01 - Acute respiratory failure with hypoxia Status: Acute Assessment and Plan: due to cardiac arrest, COVID pneumonia, and pulmonary embolism continue ventilator support (6) Pneumonia due to COVID-19 virus: Code(s): U07.1 - COVID-19; J12.82 - Pneumonia due to coronavirus disease 2019 Status: Acute Assessment and Plan: positive by recent testing on steroids (more so for shock than COVID at this time) s/p convalscent plasam on 08/22/21 s/p remdesivir but stopped due to elevated LFTs and renal dysfunction continue supportive therapy (7) Pulmonary embolism: Qualifiers: Pulmonary embolism type: unspecified Chronicity: acute Acute cor pulmonale presence: without acute cor pulmonale Qualified Code(s): I26.99 - Other pulmonary embolism without acute cor pulmonale Code(s): I26.99 - Other pulmonary embolism without acute cor pulmonale Status: Acute Assessment and Plan: as diagnosed by CT angiogram of chest off all anticoagulation due to #3 and #4 (8) Encephalopathy: Code(s): G93.40 - Encephalopathy, unspecified Status: Acute Assessment and Plan: Currently sedated Subjective Date/time seen: 09/11/21 11:11 Interval history: patient is sedated and on ventilator. cannot give a history Exam Narrative: General: WD/WN female intubated/sedated on ventilator Heart: normal S1 and S2; no rub Lungs: coarse breath sounds Abdomen: soft, nontender, nondistended; RLQ bruising noted Extremities: trace edema and no cyanosis Skin: no rash or subcu nodules Objective Data Vital Signs Vital Signs: Vital Signs - 24 hr 09/10/21 11:45 09/10/21 12:00 09/10/21 14:00 Temperature 36.6 C Pulse Rate 103 H 107 H 109 H Respiratory Rate 32 H 35 H Blood Pressure 145/96 H 159/88 H Pulse Oximetry 98 99 98 09/10/21 14:52 09/10/21 15:56 09/10/21 15:57 Temperature Pulse Rate 104 H 95 96 Respiratory Rate 32 H 31 H Blood Pressure Pulse Oximetry 99 09/10/21 16:00 09/10/21 17:01 09/10/21 18:00 Temperature 36.8 C Pulse Rate 100 89 97 Respiratory Rate 31 H 28 H Blood Pressure 164/93 H 131/66
--- NOTE | 2021-09-11 11:37 | PCFNICU ---
ICU Rounding Note: Pt current nutrition is Nepro at 30 mls per hour over 22 hours per day. Last recorded weight is 118.7 kg. Bowel Motility: + BM 09/11/2021 Labs Reviewed: Hgb 9.2, Hct 28.1, Alb 2.9, Na 129, TG 154, BUN 9, BUN 63, Cr 5.0, Glu 129 Meds Noted: Albutein, Bumetanide, Precedex, Novolog, Glucose, Glucagon, Multivitamin, Zoloft, Vancomycin Hcl Skin: No skin break down at this time. WNL. Additional Notes: Patient remains on mechanical vent receiving Nepro at 30 mls per hour over 22 hours per day. Propofol was not given so recommend increasing tube feeding rate to 45 mls per hour over 22 hours per day to meet needs. Pt. is well tolerating feeding at this time. Following daily in ICU rounds. Will monitor every Saturday and Saturday.
[2021-09-11 12:13] LABS: Glucose Point of Care 113 mg/dl (65-105)
[2021-09-11] MEDS: SODIUM CHLORIDE 0.9% IV 1,000 ML 100 ML IV CONT (14:30)
--- NOTE | 2021-09-11 15:28 | WPDINTPN ---
Progress Note: A&P Assessment and Plan (1) Anemia associated with acute blood loss: Code(s): D62 - Acute posthemorrhagic anemia Status: Acute Assessment and Plan: Patient initially received 4 units of PRBC, 2 units of FFP, 1 unit of cryo. 08/31 2 units of PRBC and 4 units of FFP were given. Patient was also given vitamin K. Hospital does not have andexanet and Kcentra not given due to high risk of new or worsening of her current thrombosis as patient already has PE and and also has COVID-19. Also her last dose of Eliquis was more than 24 hours ago 09/01 2 units of PRBC, DDAVP, tranexamic acid was given 09/02 1 unit of PRBC given 09/03 1 unit of PRBC given overnight 09/05 1 unit PRBC transfused Her hemoglobin has been stable over last few days. Continue monitoring and transfuse as needed Continue to Monitor coags which are in acceptable range at this time CT 08/30 IMPRESSION: 1. Large hematoma in right pelvis extending into the peritoneum with two foci of active extravasation of contrast. 2. Hematomas in the rectus abdominis muscles, right worse than left. 3. Splenic infarcts. Small volume of perisplenic ascites. 4. Diffuse lung disease, consistent with COVID-[address] abdomen pelvis 09/02 3. Large volume of extraperitoneal hematoma in the pelvis centered to the right of midline, mildly worsened from 08/30/21. Moderate volume of hemoperitoneum, worsened from 08/30/21. 4. Moderate bilateral hydronephrosis and hydroureter secondary to mass effect from the pelvic hematoma, worsened from 08/30/21. 5. Hematomas in the rectus abdominis muscles, right worse than left, stable from 08/30/21. 6. Splenic infarcts again seen. 08/31 I wanted to to transfer patient to a facility where patient can get angiogram and possible embolization if ongoing bleed but due to current COVID 19 pandemic there are no ICU beds available. [facility] and they did not have any ICU bed available in any of the 6 hospitals. I gave them patient information and they will call me if a bed opens up. Hospitalist provider called [facility], [facility] to see if they have any bed available General surgery was consulted but no surgical options at this time 09/01 I called [facility], [facility] and [facility] again and no beds available. Hospitals in [place] are also not accepting any transfers 09/02 patient remains on wait list at [facility] 09/05 I again confirmed today the patient is on wait list at [facility] and [facility] is still not accepting any transfers At this point the goal is to maintain coags in acceptable range, transfuse blood products as needed to maintain adequate hemoglobin level. It seems the bleeding has stopped at this time. She will need eventually need definitive treatment whether vascular and/or surgical for that large hematoma. (2) Hemorrhagic shock: Code(s): R57.8 - Other shock Status: Acute Assessment and Plan: Secondary to blood loss and possibly sepsis Improved as patient is now off of vasopressors Monitor closely Patient has received significant amount of volume and is overall volume overloaded. Hold further IV fluids and only administer blood products as needed (3) Sepsis: Code(s): A41.9 - Sepsis, unspecified organism Status: Acute Assessment and Plan: Urine and blood cultures have been negative Sputum culture grew yeast which is likely a colonizer Femoral central venous catheter was removed on 09/05 her WBCs improving Continue vancomycin and imipenem for 7 days (4) Pulmonary embolism: Qualifiers: Pulmonary embolism type: unspecified Chronicity: acute Acute cor pulmonale presence: without acute cor pulmonale Qualified Code(s): I26.99 - Other pulmonary embolism without acute cor pulmonale Code(s): I26.99 - Other pulmonary embolism without acute cor pulmonale Status: Acute Assessment and Plan: Currently off of anticoagulation secondary to hemorrhagic shoc
[2021-09-11] MEDS: EPOETIN ALFA-EPBX 10,000 UNITS/ML VIAL 10000 UNITS IV PUSH (16:00)
[2021-09-11 17:31] LABS: Glucose Point of Care 95 mg/dl (65-105)
[2021-09-11] MEDS: CENTRAL LINE FLUSH 10 ML IV PUSH (18:19)
[2021-09-11] MEDS: dexmedeTOMIDine 400 MCG/100 ML 400 MCG/100 ML BAG 21.88 MCG IV CONT (20:02)
[2021-09-11 20:30] LABS: Glucose Point of Care 118 mg/dl (65-105)
[2021-09-11 21:24] LABS: Vancomycin Random 18.3 ug/mL (10-20)
[2021-09-11] MEDS: dexmedeTOMIDine 400 MCG/100 ML 400 MCG/100 ML BAG 28.13 MCG IV CONT (22:14)
[2021-09-12] VITALS (31 sets, daily range): BP systolic 108–190; BP diastolic 64–107; PULSE 72–130; RESP 24–52; TEMP 36.1–37.6; O2SAT 95–100
[2021-09-12 00:34] LABS: Glucose Point of Care 121 mg/dl (65-105)
[2021-09-12] MEDS: dexmedeTOMIDine 400 MCG/100 ML 400 MCG/100 ML BAG 25 MCG IV CONT ×2 (01:17→05:02)
[2021-09-12 05:14] LABS: Alveolar/Arterial O2 Gradient 68.6 mmHg; Base Excess ABG 1.9 mEq/l (+/-2.0); Carboxyhemoglobin 0.6 % THb (0-2.0); Fractional Inspired Oxygen 28 %; HCO3 ABG 25.8 mEq/l (22.0-26.0); Methemoglobin ABG 0.3 %THb (0-1.5); Oxygen Content ABG 13.5 %vol (16.0-22.0); Oxyhemoglobin 95.2 % THb (90.0-100.0); PCO2 ABG 37.4 mmHg (35.0-45.0); PO2 ABG 86.9 mmHg (80.0-100.0); Reduced Hemoglobin 3.9 %THb (0-5.0); pH ABG 7.456 (7.350-7.450)
[2021-09-12 05:14] LABS: Hematocrit 28.5 % (37.0-47.0); Hemoglobin 9.3 g/dL (12.0-15.0); Mean Corpuscular HGB Conc 32.6 g/dl (32-36); Mean Corpuscular Hemoglobin 30.3 pg (26-34); Mean Corpuscular Volume 92.8 fl (80-100); Mean Platelet Volume 10.3 fl (7.4-10.4); Platelet Count Result 166 k/mm3 (150-375); Red Blood Count 3.07 M/mm3 (4.2-5.4); Red Cell Distribution Width 17.3 % (11.5-14.5); White Blood Count 13.7 K/mm3 (4.5-10.0)
[2021-09-12 05:15] LABS: Device VENTILATOR; Modified Allen's Test Unable to perform; Site Drawn RIGHT RADIAL
[2021-09-12 05:16] LABS: Arterial Blood Gas PEEP 5 cmH2O; Arterial Blood Gas Tidal Volume 370 ml; Arterial Blood Gas Vent Mode CMV; Arterial Blood Gas Ventilator rate 24 /MIN
[2021-09-12 05:25] LABS: Alanine Aminotransferase 41 U/L (4-35); Albumin Level 3.1 g/dL (3.5-5.1); Alkaline Phosphatase 134 U/L (38-126); Anion Gap 6 mmol/L (8-16); Aspartate Amino Transferase 34 U/L (14-36); Bilirubin,Total 1.1 mg/dL (0.2-1.3); Blood Urea Nitrogen 56 mg/dL (7-17); Calcium 8.8 mg/dL (8.4-10.2); Carbon Dioxide 29 mmol/L (22-30); Chloride 95 mmol/L (98-107); Estimated CRCL calculation 19 ml/min; Estimated Glomerular Filt Rate 12; Glucose 129 mg/dL (65-110); Magnesium 2.1 mg/dL (1.6-2.3); Potassium 3.8 mmol/L (3.4-5.0); Sodium 130 mmol/L (137-145)
--- NOTE | 2021-09-12 07:30 | P.PNNP_ITS ---
Progress Note: A&P Assessment and Plan (1) JERRY (acute kidney injury): Code(s): N17.9 - Acute kidney failure, unspecified Status: Acute Assessment and Plan: * due to ATN from: * hemorrhagic shock * contrast exposure * obstruction * evaluation to date: * renal ultrasound with evidence of obstruction - s/p nephrostomy tube placement * CPK mildly elevated (but not enough to affect kidney function) * urine electrolytes non-prerenal * She had dialysis on Saturday. * Will stop Bumex. This may be post ATN diuresis. * Check for dialysis tomorrow but hopefully will not need it. (2) Bilateral hydronephrosis: Code(s): N13.30 - Unspecified hydronephrosis Status: Acute Assessment and Plan: * as noted by renal ultrasound * CT scan (09/02/20) with moderate bilateral hydronephrosis and hydroureter secondary to mass effect from the pelvic hematoma, worsened from 08/30/21 * s/p bilateral CT-guided nephrostomy tube placement on 09/02/20 * Urology following (3) Anemia associated with acute blood loss: Code(s): D62 - Acute posthemorrhagic anemia Status: Acute Assessment and Plan: * as noted by recent CT scan: * large hematoma in right pelvis extending into the peritoneum with two foci of active extravasation of contrast; hematomas in the rectus abdominis muscles, right worse than left * Hemoglobin stable between yesterday and today. (4) Hemorrhagic shock: Code(s): R57.8 - Other shock Status: Acute Assessment and Plan: * resolved. * off pressors. (5) Acute respiratory failure with hypoxia: Code(s): J96.01 - Acute respiratory failure with hypoxia Status: Acute Assessment and Plan: * due to cardiac arrest, COVID pneumonia, and pulmonary embolism * continue ventilator support (6) Pneumonia due to COVID-19 virus: Code(s): U07.1 - COVID-19; J12.82 - Pneumonia due to coronavirus disease 2019 Status: Acute Assessment and Plan: * positive by recent testing * on steroids (more so for shock than COVID at this time) * s/p convalscent plasam on 08/22/21 * s/p remdesivir but stopped due to elevated LFTs and renal dysfunction * Still on respiratory isolation (7) Pulmonary embolism: Qualifiers: Pulmonary embolism type: unspecified Chronicity: acute Acute cor pulmonale presence: without acute cor pulmonale Qualified Code(s): I26.99 - Other pulmonary embolism without acute cor pulmonale Code(s): I26.99 - Other pulmonary embolism without acute cor pulmonale Status: Acute Assessment and Plan: * as diagnosed by CT angiogram of chest * off all anticoagulation due to #3 and #4 (8) Encephalopathy: Code(s): G93.40 - Encephalopathy, unspecified Status: Acute Assessment and Plan: * Currently sedated Subjective Date/time seen: 09/12/21 07:30 Interval history: patient is sedated and on ventilator. cannot give a history Review of systems unavailable due to vent. Exam Narrative: General: WD/WN female intubated/sedated on ventilator Heart: normal S1 and S2; no rub or gallop Lungs: coarse breath sounds Abdomen: soft, nontender, nondistended; RLQ bruising noted Extremities: trace edema and no cyanosis Skin: no rash Objective Data Vital Signs Vital Signs: Vital Signs - 24 hr 09/11/21 08:00 09/11/21 08:48 09/11/21 10:00
--- NOTE | 2021-09-12 07:30 | PM.PNNEP ---
Progress Note: A&P Assessment and Plan (1) JERRY (acute kidney injury): Code(s): N17.9 - Acute kidney failure, unspecified Status: Acute Assessment and Plan: due to ATN from: hemorrhagic shock contrast exposure obstruction evaluation to date: renal ultrasound with evidence of obstruction - s/p nephrostomy tube placement CPK mildly elevated (but not enough to affect kidney function) urine electrolytes non-prerenal She had dialysis on Saturday. Will stop Bumex. This may be post ATN diuresis. Check for dialysis tomorrow but hopefully will not need it. (2) Bilateral hydronephrosis: Code(s): N13.30 - Unspecified hydronephrosis Status: Acute Assessment and Plan: as noted by renal ultrasound CT scan (09/02/20) with moderate bilateral hydronephrosis and hydroureter secondary to mass effect from the pelvic hematoma, worsened from 08/30/[address] s[address]-guided nephrostomy tube placement on 09/02/20 Urology following (3) Anemia associated with acute blood loss: Code(s): D62 - Acute posthemorrhagic anemia Status: Acute Assessment and Plan: as noted by recent CT scan: large hematoma in right pelvis extending into the peritoneum with two foci of active extravasation of contrast; hematomas in the rectus abdominis muscles, right worse than left Hemoglobin stable between yesterday and today. (4) Hemorrhagic shock: Code(s): R57.8 - Other shock Status: Acute Assessment and Plan: resolved. off pressors. (5) Acute respiratory failure with hypoxia: Code(s): J96.01 - Acute respiratory failure with hypoxia Status: Acute Assessment and Plan: due to cardiac arrest, COVID pneumonia, and pulmonary embolism continue ventilator support (6) Pneumonia due to COVID-19 virus: Code(s): U07.1 - COVID-19; J12.82 - Pneumonia due to coronavirus disease 2019 Status: Acute Assessment and Plan: positive by recent testing on steroids (more so for shock than COVID at this time) s/p convalscent plasam on 08/22/21 s/p remdesivir but stopped due to elevated LFTs and renal dysfunction Still on respiratory isolation (7) Pulmonary embolism: Qualifiers: Pulmonary embolism type: unspecified Chronicity: acute Acute cor pulmonale presence: without acute cor pulmonale Qualified Code(s): I26.99 - Other pulmonary embolism without acute cor pulmonale Code(s): I26.99 - Other pulmonary embolism without acute cor pulmonale Status: Acute Assessment and Plan: as diagnosed by CT angiogram of chest off all anticoagulation due to #3 and #4 (8) Encephalopathy: Code(s): G93.40 - Encephalopathy, unspecified Status: Acute Assessment and Plan: Currently sedated Subjective Date/time seen: 09/12/21 07:30 Interval history: patient is sedated and on ventilator. cannot give a history Review of systems unavailable due to vent. Exam Narrative: General: WD/WN female intubated/sedated on ventilator Heart: normal S1 and S2; no rub or gallop Lungs: coarse breath sounds Abdomen: soft, nontender, nondistended; RLQ bruising noted Extremities: trace edema and no cyanosis Skin: no rash Objective Data Vital Signs Vital Signs: Vital Signs - 24 hr 09/11/21 08:00 09/11/21 08:48 09/11/21 10:00 Temperature 36.9 C Pulse Rate 80 98 112 H Respiratory Rate 27 H 37 H Blood Pressure 131/80 170/95 H Pulse Oximetry 99 98 99 09/11/21 11:03 09/11/21 11:38 09/11/21 12:00 Temperature 36.3 C L Pulse Rate 109 H 93 97 Respiratory Rate 34 H Blood Pressure 167/90 H Pulse Oximetry 98 98 09/11/21 14:00 09/11/21 14:10 09/11/21 14:50 Temperature 36.8 C Pulse Rate 98 95 97 Respiratory Rate 35 H 35 H Blood Pressure 173/91 H 159/97 H Pulse Oximetry 99 99 99 09/11/21 15:03 09/11/21 15:15 09/11/21 15:30 Temperature Pulse Rate 10
[2021-09-12] MEDS: BUMETANIDE INJ 1 MG/4 ML VIAL IV PUSH ×2 (08:59→16:49)
[2021-09-12] MEDS: LIDOCAINE 5% PATCH 1 PATCH TRANSDERM (09:03)
[2021-09-12] MEDS: MINERAL OIL/WHITE PETROLATUM OINTMENT 1 APPLIC EACH EYE ×2 (09:03→20:50)
--- NOTE | 2021-09-12 09:04 | WPDNEUROLOGY ---
Neurology EEG Report General Information Date of Study: 09/11/21 TEST eeg DIAGNOSIS Change in mental status CONDITION OF RECORDING comatose EEG NUMBER [id number] CLINICAL HISTORY patient came to the hospital pneumonia 3 weeks ago. Patient is no sedated and on vent. EEG DESCRIPTION whole record consists of low-voltage 15 to 21 hertz per 2nd beta activity admixed with low to medium voltage 3 to 4 hertz per 2nd delta. Bilateral symmetrical sleep activity seen again admixed with intermittent low to medium voltage 3 to 4 hertz per 2nd delta. Hyperventilation not done photic stimulation not done. Non paroxysmal nonfocal nonlateralizing IMPRESSION abnormal record due to the presence of bihemispheric delta activity and due to the absence of the normal background rhythm. These abnormalities are suggestive of underlying organic or metabolic encephalopathy. Possibility of the superimposed focal structural lesion cannot be ruled out. This tracing is definitely known paroxysmal
[2021-09-12 09:08] LABS: Glucose Point of Care 118 mg/dl (65-105)
--- NOTE | 2021-09-12 09:38 | WPDINTPN ---
Progress Note: A&P Assessment and Plan (1) Anemia associated with acute blood loss: Code(s): D62 - Acute posthemorrhagic anemia Status: Acute Assessment and Plan: Patient initially received 4 units of PRBC, 2 units of FFP, 1 unit of cryo. 08/31 2 units of PRBC and 4 units of FFP were given. Patient was also given vitamin K. Hospital does not have andexanet and Kcentra not given due to high risk of new or worsening of her current thrombosis as patient already has PE and and also has COVID-19. Also her last dose of Eliquis was more than 24 hours ago 09/01 2 units of PRBC, DDAVP, tranexamic acid was given 09/02 1 unit of PRBC given 09/03 1 unit of PRBC given overnight 09/05 1 unit PRBC transfused Her hemoglobin has been stable over last few days. Continue monitoring and transfuse as needed Continue to Monitor coags which are in acceptable range at this time CT 08/30 IMPRESSION: 1. Large hematoma in right pelvis extending into the peritoneum with two foci of active extravasation of contrast. 2. Hematomas in the rectus abdominis muscles, right worse than left. 3. Splenic infarcts. Small volume of perisplenic ascites. 4. Diffuse lung disease, consistent with COVID-[address] abdomen pelvis 09/02 3. Large volume of extraperitoneal hematoma in the pelvis centered to the right of midline, mildly worsened from 08/30/21. Moderate volume of hemoperitoneum, worsened from 08/30/21. 4. Moderate bilateral hydronephrosis and hydroureter secondary to mass effect from the pelvic hematoma, worsened from 08/30/21. 5. Hematomas in the rectus abdominis muscles, right worse than left, stable from 08/30/21. 6. Splenic infarcts again seen. 08/31 I wanted to to transfer patient to a facility where patient can get angiogram and possible embolization if ongoing bleed but due to current COVID 19 pandemic there are no ICU beds available. I called [facility] including [facility] and they did not have any ICU bed available in any of the 6 hospitals. I gave them patient information and they will call me if a bed opens up. Hospitalist provider called [facility], [facility] to see if they have any bed available General surgery was consulted but no surgical options at this time 09/01 I called [facility], [facility] and [facility] again and no beds available. Hospitals in [place] are also not accepting any transfers 09/02 patient remains on wait list at [facility] 09/05 I again confirmed today the patient is on wait list at [facility] and [facility] is still not accepting any transfers At this point the goal is to maintain coags in acceptable range, transfuse blood products as needed to maintain adequate hemoglobin level. It seems the bleeding has stopped at this time. She will need eventually need definitive treatment whether vascular and/or surgical for that large hematoma. (2) Hemorrhagic shock: Code(s): R57.8 - Other shock Status: Acute Assessment and Plan: Secondary to blood loss and possibly sepsis Improved as patient is now off of vasopressors Monitor closely Patient has received significant amount of volume and is overall volume overloaded. Hold further IV fluids and only administer blood products as needed (3) Sepsis: Code(s): A41.9 - Sepsis, unspecified organism Status: Acute Assessment and Plan: Urine and blood cultures have been negative Sputum culture grew yeast which is likely a colonizer Femoral central venous catheter was removed on 09/05 her WBCs improving Continue vancomycin and imipenem for 7 days (4) Pulmonary embolism: Qualifiers: Pulmonary embolism type: unspecified Chronicity: acute Acute cor pulmonale presence: without acute cor pulmonale Qualified Code(s): I26.99 - Other pulmonary embolism without acute cor pulmonale Code(s): I26.99 - Other pulmonary embolism without acute cor pulmonale Status: Acute Assessment and Plan: Currently off of anticoagulation secondary to hemorrhagic shoc
--- NOTE | 2021-09-12 11:09 | PCNFU ---
Addendum entered by Barbara Knott, MAXIME 09/12/21 12:16: Received a consult for pressure. Pt. has a deep tissue pressure injury to left chest. Original Note: Nutrition Follow-Up Complete: Inadequate Oral Intake as related to mechanical vent as evidenced by NPO. Goal: Meet estimated nutritional needs Pt. is progressing towards goal. No new goal at this time. Pt current nutrition is Nepro at 30 mls per hour over 22 hours per day. Last recorded weight is 116.7 kg. Bowel Motility: + BM 09/12/2021 Labs Reviewed: Hgb 9.3, Hct 28.5, Alb 3.1, Na 130, GFR 12, BUN 56, Cr 4.0, Glu 129 Meds Noted: Albutein, Precedex, Bumetanide, Novolog, Glucose, Glucagon, Sertraline Hcl, Multivitamin, Zoloft, Vancomycin Hcl Skin: No pressure injuries at this time. WNL. Additional Notes: Patient remains on mechanical vent and tube feedings of Nepro at 30 mls per hour over 22 hours per day tolerating well. Currently receiving 1188 calories, 53 grams of protein and 480 mls of water with a 30 ml water flush q4. Plan to speak with MD regarding increasing the rate to 45 mls per hour to better meet pt. needs. Will monitor every Saturday and Saturday.
[2021-09-12 12:32] LABS: Glucose Point of Care 86 mg/dl (65-105)
[2021-09-12] MEDS: dexmedeTOMIDine 400 MCG/100 ML 400 MCG/100 ML BAG 6.25 MCG IV CONT (16:47)
[2021-09-12] MEDS: CENTRAL LINE FLUSH 10 ML IV PUSH (16:50)
[2021-09-12 16:54] LABS: Glucose Point of Care 94 mg/dl (65-105)
[2021-09-12 18:16] LABS: Glucose Point of Care 108 mg/dl (65-105)
[2021-09-12 20:55] LABS: Glucose Point of Care 95 mg/dl (65-105)
[2021-09-12 23:54] LABS: Glucose Point of Care 99 mg/dl (65-105)
--- NOTE | 2021-09-12 23:59 | PC.NURSE ---
Patient open eyes to light. Patient then instructed to squeeze her Left hand first, Patient able to squeeze Left Hand. Patient then asked to squeeze right hand, patient able to squeeze right hand. Patient was informed where she was and what had happened. Patient able to nod yes to simple questions at this time.
[2021-09-13] VITALS (42 sets, daily range): BP systolic 105–187; BP diastolic 59–116; PULSE 82–132; RESP 15–39; TEMP 36.9–38.1; O2SAT 95–100
[2021-09-13] MEDS: dexmedeTOMIDine 400 MCG/100 ML 400 MCG/100 ML BAG 15.63 MCG IV CONT ×2 (00:52→06:15)
[2021-09-13 05:13] LABS: Hematocrit 27.8 % (37.0-47.0); Hemoglobin 9.1 g/dL (12.0-15.0); Mean Corpuscular HGB Conc 32.7 g/dl (32-36); Mean Corpuscular Hemoglobin 29.8 pg (26-34); Mean Corpuscular Volume 91.1 fl (80-100); Platelet Count Result 162 k/mm3 (150-375); Red Blood Count 3.05 M/mm3 (4.2-5.4); Red Cell Distribution Width 17.1 % (11.5-14.5); White Blood Count 13.3 K/mm3 (4.5-10.0)
[2021-09-13 05:29] LABS: Alanine Aminotransferase 38 U/L (4-35); Albumin Level 3.3 g/dL (3.5-5.1); Alkaline Phosphatase 133 U/L (38-126); Anion Gap 9 mmol/L (8-16); Aspartate Amino Transferase 41 U/L (14-36); Bilirubin,Total 1.3 mg/dL (0.2-1.3); Blood Urea Nitrogen 74 mg/dL (7-17); Calcium 8.9 mg/dL (8.4-10.2); Carbon Dioxide 30 mmol/L (22-30); Chloride 93 mmol/L (98-107); Estimated CRCL calculation 16 ml/min; Estimated Glomerular Filt Rate 10; Glucose 108 mg/dL (65-110); Magnesium 2.1 mg/dL (1.6-2.3); Potassium 3.5 mmol/L (3.4-5.0); Sodium 132 mmol/L (137-145)
[2021-09-13 05:38] LABS: Alveolar/Arterial O2 Gradient 70.1 mmHg; Base Excess ABG 1.8 mEq/l (+/-2.0); Device VENTILATOR; Fractional Inspired Oxygen 28 %; HCO3 ABG 25.1 mEq/l (22.0-26.0); Methemoglobin ABG 0.2 %THb (0-1.5); Modified Allen's Test Unable to perform; Oxygen Content ABG 15.2 %vol (16.0-22.0); Oxygen Saturation ABG 97.3 % (95.0-100.0); Oxyhemoglobin 95.1 % THb (90.0-100.0); PCO2 ABG 35.1 mmHg (35.0-45.0); PO2 ABG 88.1 mmHg (80.0-100.0); PO2 FiO2 Ratio Arterial Blood 3.15 %; Reduced Hemoglobin 3.7 %THb (0-5.0); Site Drawn RIGHT RADIAL; Total Hemoglobin 11.3 g/dL (12.0-18.0); pH ABG 7.473 (7.350-7.450)
[2021-09-13 05:39] LABS: Arterial Blood Gas PEEP 5 cmH2O; Arterial Blood Gas Tidal Volume 370 ml; Arterial Blood Gas Vent Mode CMV; Arterial Blood Gas Ventilator rate 24 /MIN
[2021-09-13 07:59] LABS: Glucose Point of Care 111 mg/dl (65-105)
--- NOTE | 2021-09-13 08:24 | P.PNNP_ITS ---
Progress Note: A&P Assessment and Plan (1) JERRY (acute kidney injury): Code(s): N17.9 - Acute kidney failure, unspecified Status: Acute Assessment and Plan: * due to ATN from: * hemorrhagic shock * contrast exposure * obstruction * evaluation to date: * renal ultrasound with evidence of obstruction - s/p nephrostomy tube placement * CPK mildly elevated (but not enough to affect kidney function) * urine electrolytes non-prerenal * She had dialysis on Saturday. * Bumex stopped earlier today. Urine output was about 2L yesterday. * Creatinine is a little higher today. Consider dialysis later. (2) Bilateral hydronephrosis: Code(s): N13.30 - Unspecified hydronephrosis Status: Acute Assessment and Plan: * as noted by renal ultrasound * CT scan (09/02/20) with moderate bilateral hydronephrosis and hydroureter secondary to mass effect from the pelvic hematoma, worsened from 08/30/21 * s/p bilateral CT-guided nephrostomy tube placement on 09/02/20 * Urology following (3) Anemia associated with acute blood loss: Code(s): D62 - Acute posthemorrhagic anemia Status: Acute Assessment and Plan: * as noted by recent CT scan: * large hematoma in right pelvis extending into the peritoneum with two foci of active extravasation of contrast; hematomas in the rectus abdominis muscles, right worse than left * Hemoglobin ranging in the low 9s. (4) Hemorrhagic shock: Code(s): R57.8 - Other shock Status: Acute Assessment and Plan: * resolved. * off pressors. (5) Acute respiratory failure with hypoxia: Code(s): J96.01 - Acute respiratory failure with hypoxia Status: Acute Assessment and Plan: * due to cardiac arrest, COVID pneumonia, and pulmonary embolism * continue ventilator support (6) Pneumonia due to COVID-19 virus: Code(s): U07.1 - COVID-19; J12.82 - Pneumonia due to coronavirus disease 2019 Status: Acute Assessment and Plan: * positive by recent testing * on steroids (more so for shock than COVID at this time) * s/p convalscent plasam on 08/22/21 * s/p remdesivir but stopped due to elevated LFTs and renal dysfunction * Still on respiratory isolation (7) Pulmonary embolism: Qualifiers: Pulmonary embolism type: unspecified Chronicity: acute Acute cor pulmonale presence: without acute cor pulmonale Qualified Code(s): I26.99 - Other pulmonary embolism without acute cor pulmonale Code(s): I26.99 - Other pulmonary embolism without acute cor pulmonale Status: Acute Assessment and Plan: * as diagnosed by CT angiogram of chest * off all anticoagulation due to #3 and #4 (8) Encephalopathy: Code(s): G93.40 - Encephalopathy, unspecified Status: Acute Assessment and Plan: * Currently sedated Subjective Date/time seen: 09/13/21 08:24 Interval history: patient is sedated and on ventilator. cannot give a history Review of systems unavailable due to medical condition Exam Narrative: General: WD/WN female intubated/sedated on ventilator Heart: normal S1 and S2; no rub or gallop Lungs: coarse breath sounds Abdomen: soft, nontender, nondistended; RLQ bruising noted Extremities: 1+ edema and no cyanosis Skin: no rash Objective Data Vital Signs Vital Signs: Vital Signs - 24 hr 09/12/21 08:55 09/12/21 08:58 09/12/21
--- NOTE | 2021-09-13 08:24 | PM.PNNEP ---
Progress Note: A&P Assessment and Plan (1) JERRY (acute kidney injury): Code(s): N17.9 - Acute kidney failure, unspecified Status: Acute Assessment and Plan: due to ATN from: hemorrhagic shock contrast exposure obstruction evaluation to date: renal ultrasound with evidence of obstruction - s/p nephrostomy tube placement CPK mildly elevated (but not enough to affect kidney function) urine electrolytes non-prerenal She had dialysis on Saturday. Bumex stopped earlier today. Urine output was about 2L yesterday. Creatinine is a little higher today. Consider dialysis later. (2) Bilateral hydronephrosis: Code(s): N13.30 - Unspecified hydronephrosis Status: Acute Assessment and Plan: as noted by renal ultrasound CT scan (09/02/20) with moderate bilateral hydronephrosis and hydroureter secondary to mass effect from the pelvic hematoma, worsened from 08/30/[address] s[address]-guided nephrostomy tube placement on 09/02/20 Urology following (3) Anemia associated with acute blood loss: Code(s): D62 - Acute posthemorrhagic anemia Status: Acute Assessment and Plan: as noted by recent CT scan: large hematoma in right pelvis extending into the peritoneum with two foci of active extravasation of contrast; hematomas in the rectus abdominis muscles, right worse than left Hemoglobin ranging in the low 9s. (4) Hemorrhagic shock: Code(s): R57.8 - Other shock Status: Acute Assessment and Plan: resolved. off pressors. (5) Acute respiratory failure with hypoxia: Code(s): J96.01 - Acute respiratory failure with hypoxia Status: Acute Assessment and Plan: due to cardiac arrest, COVID pneumonia, and pulmonary embolism continue ventilator support (6) Pneumonia due to COVID-19 virus: Code(s): U07.1 - COVID-19; J12.82 - Pneumonia due to coronavirus disease 2019 Status: Acute Assessment and Plan: positive by recent testing on steroids (more so for shock than COVID at this time) s/p convalscent plasam on 08/22/21 s/p remdesivir but stopped due to elevated LFTs and renal dysfunction Still on respiratory isolation (7) Pulmonary embolism: Qualifiers: Pulmonary embolism type: unspecified Chronicity: acute Acute cor pulmonale presence: without acute cor pulmonale Qualified Code(s): I26.99 - Other pulmonary embolism without acute cor pulmonale Code(s): I26.99 - Other pulmonary embolism without acute cor pulmonale Status: Acute Assessment and Plan: as diagnosed by CT angiogram of chest off all anticoagulation due to #3 and #4 (8) Encephalopathy: Code(s): G93.40 - Encephalopathy, unspecified Status: Acute Assessment and Plan: Currently sedated Subjective Date/time seen: 09/13/21 08:24 Interval history: patient is sedated and on ventilator. cannot give a history Review of systems unavailable due to medical condition Exam Narrative: General: WD/WN female intubated/sedated on ventilator Heart: normal S1 and S2; no rub or gallop Lungs: coarse breath sounds Abdomen: soft, nontender, nondistended; RLQ bruising noted Extremities: 1+ edema and no cyanosis Skin: no rash Objective Data Vital Signs Vital Signs: Vital Signs - 24 hr 09/12/21 08:55 09/12/21 08:58 09/12/21 10:00 Temperature Pulse Rate 76 73 96 Respiratory Rate 26 H 33 H Blood Pressure 125/80 Pulse Oximetry 96 97 09/12/21 11:00 09/12/21 12:00 09/12/21 13:45 Temperature 36.2 C L Pulse Rate 106 H 102 H 114 H Respiratory Rate 30 H Blood Pressure 140/107 H Pulse Oximetry 97 98 99 09/12/21 14:00 09/12/21 14:38 09/12/21 15:35 Temperature Pulse Rate 120 H 130 H Respiratory Rate 35 H 52 H Blood Pressure 190/92 H 152/94 H Pulse Oximetry 97 09/12/21 16:00 09/12/21 16:47 09/12/21 17:50 Temperature 36.1 C L Pulse
--- NOTE | 2021-09-13 10:04 | WPDINTPN ---
Progress Note: A&P Assessment and Plan (1) Anemia associated with acute blood loss: Code(s): D62 - Acute posthemorrhagic anemia Status: Acute Assessment and Plan: Patient initially received 4 units of PRBC, 2 units of FFP, 1 unit of cryo. 08/31 2 units of PRBC and 4 units of FFP were given. Patient was also given vitamin K. Hospital does not have andexanet and Kcentra not given due to high risk of new or worsening of her current thrombosis as patient already has PE and and also has COVID-19. Also her last dose of Eliquis was more than 24 hours ago 09/01 2 units of PRBC, DDAVP, tranexamic acid was given 09/02 1 unit of PRBC given 09/03 1 unit of PRBC given overnight 09/05 1 unit PRBC transfused Her hemoglobin has been stable over last few days. Continue monitoring and transfuse as needed Continue to Monitor coags which are in acceptable range at this time At this point the goal is to maintain coags in acceptable range, transfuse blood products as needed to maintain adequate hemoglobin level. It seems the bleeding has stopped at this time. She will need eventually need definitive treatment whether vascular and/or surgical for that large hematoma. CT 08/30 IMPRESSION: 1. Large hematoma in right pelvis extending into the peritoneum with two foci of active extravasation of contrast. 2. Hematomas in the rectus abdominis muscles, right worse than left. 3. Splenic infarcts. Small volume of perisplenic ascites. 4. Diffuse lung disease, consistent with COVID-[address] abdomen pelvis 09/02 3. Large volume of extraperitoneal hematoma in the pelvis centered to the right of midline, mildly worsened from 08/30/21. Moderate volume of hemoperitoneum, worsened from 08/30/21. 4. Moderate bilateral hydronephrosis and hydroureter secondary to mass effect from the pelvic hematoma, worsened from 08/30/21. 5. Hematomas in the rectus abdominis muscles, right worse than left, stable from 08/30/21. 6. Splenic infarcts again seen. 08/31 I wanted to to transfer patient to a facility where patient can get angiogram and possible embolization if ongoing bleed but due to current COVID 19 pandemic there are no ICU beds available. [facility] called [facility] and they did not have any ICU bed available in any of the 6 hospitals. I gave them patient information and they will call me if a bed opens up. Hospitalist provider called [facility] to see if they have any bed available General surgery was consulted but no surgical options at this time 09/01 I called [facility] and [facility] again and no beds available. Hospitals in [place] are also not accepting any transfers 09/02 patient remains on wait list at [facility] 09/05 I again confirmed today the patient is on wait list at [facility] and [facility] is still not accepting any transfers (2) Hemorrhagic shock: Code(s): R57.8 - Other shock Status: Acute Assessment and Plan: Secondary to blood loss and possibly sepsis Improved as patient is now off of vasopressors Monitor closely Patient has received significant amount of volume and is overall volume overloaded. Hold further IV fluids and only administer blood products as needed (3) Sepsis: Code(s): A41.9 - Sepsis, unspecified organism Status: Acute Assessment and Plan: Urine and blood cultures have been negative Sputum culture grew yeast which is likely a colonizer Femoral central venous catheter was removed on 09/05 her WBCs improving Continue vancomycin and imipenem for 7 days which will complete on 09/14 (4) Pulmonary embolism: Qualifiers: Pulmonary embolism type: unspecified Chronicity: acute Acute cor pulmonale presence: without acute cor pulmonale Qualified Code(s): I26.99 - Other pulmonary embolism without acute cor pulmonale Code(s): I26.99 - Other pulmonary embolism without acute cor pulmonale Status: Acute Assessment and Plan: Currently off of anticoagulat
--- NOTE | 2021-09-13 10:55 | PCFNICU ---
ICU Rounding Note: Pt current nutrition is Nepro at 30 ml/hr over 22 hours. Nutrition recommendation: Goal rate at 45 ml/hr Last recorded weight is 115.3 kg, up from 100.3 kg on admit. Bowel Motility:FMS Labs Reviewed:Alb 3.3,Na 132, GFR 10, BUN 74, Cr 4.7,Glu 132 Meds Noted:Albutein, Precedex, Bumetanide, Novolog, Glucose, Glucagon, Sertraline Hcl, Multivitamin, Zoloft, Vancomycin Hcl Skin: WNL Additional Notes: Patient remains on mechanical vent and tube feedings of Nepro at 30 ml/hr. Discussed tube feeding rate with MD today, plans to increased to 45 ml/hr today providing 1782 kcals/80 gms protein/720 ml water. Banatrol Plus added for stool bulking q 6 hours today. Agree with diet orders. Following daily in ICU rounds. Will monitor every Saturday and Saturday.
[2021-09-13 12:17] LABS: Glucose Point of Care 121 mg/dl (65-105)
[2021-09-13] MEDS: dexmedeTOMIDine 400 MCG/100 ML 400 MCG/100 ML BAG 25 MCG IV CONT ×2 (13:13→17:09)
[2021-09-13] MEDS: LIDOCAINE 5% PATCH 1 PATCH TRANSDERM (17:11)
[2021-09-13] MEDS: CENTRAL LINE FLUSH 10 ML IV PUSH (17:11)
[2021-09-13 18:57] LABS: Vancomycin Random 10.5 ug/mL (10-20)
[2021-09-13] MEDS: dexmedeTOMIDine 400 MCG/100 ML 400 MCG/100 ML BAG 21.88 MCG IV CONT (20:49)
[2021-09-13] MEDS: MINERAL OIL/WHITE PETROLATUM OINTMENT 1 APPLIC EACH EYE (20:49)
[2021-09-14] VITALS (26 sets, daily range): BP systolic 108–133; BP diastolic 63–85; PULSE 72–109; RESP 23–34; TEMP 36.2–37.6; O2SAT 94–100
[2021-09-14 00:31] LABS: Glucose Point of Care 114 mg/dl (65-105)
[2021-09-14] MEDS: dexmedeTOMIDine 400 MCG/100 ML 400 MCG/100 ML BAG 25 MCG IV CONT ×4 (01:33→12:55)
[2021-09-14 04:34] LABS: Alveolar/Arterial O2 Gradient 53.2 mmHg; Base Excess ABG 2.8 mEq/l (+/-2.0); Carboxyhemoglobin 0.8 % THb (0-2.0); Fractional Inspired Oxygen 28 %; HCO3 ABG 26.6 mEq/l (22.0-26.0); Methemoglobin ABG 0.4 %THb (0-1.5); Oxygen Saturation ABG 97.9 % (95.0-100.0); Oxyhemoglobin 95.8 % THb (90.0-100.0); PCO2 ABG 38.1 mmHg (35.0-45.0); PO2 ABG 101.5 mmHg (80.0-100.0); PO2 FiO2 Ratio Arterial Blood 3.63 %; Total Hemoglobin 13.3 g/dL (12.0-18.0); pH ABG 7.462 (7.350-7.450)
[2021-09-14 04:35] LABS: Device VENTILATOR; Modified Allen's Test Pass; Site Drawn LEFT RADIAL
[2021-09-14 04:36] LABS: Arterial Blood Gas PEEP 5 cmH2O; Arterial Blood Gas Tidal Volume 370 ml; Arterial Blood Gas Vent Mode CMV; Arterial Blood Gas Ventilator rate 24 /MIN
[2021-09-14 05:42] LABS: Hematocrit 26.9 % (37.0-47.0); Hemoglobin 8.6 g/dL (12.0-15.0); Mean Corpuscular Hemoglobin 29.7 pg (26-34); Mean Corpuscular Volume 92.8 fl (80-100); Mean Platelet Volume 10.8 fl (7.4-10.4); Platelet Count Result 167 k/mm3 (150-375); Red Cell Distribution Width 16.6 % (11.5-14.5); White Blood Count 12.6 K/mm3 (4.5-10.0)
[2021-09-14 05:47] LABS: Alanine Aminotransferase 36 U/L (4-35); Albumin Level 3.2 g/dL (3.5-5.1); Alkaline Phosphatase 145 U/L (38-126); Anion Gap 8 mmol/L (8-16); Aspartate Amino Transferase 49 U/L (14-36); Bilirubin,Total 1.2 mg/dL (0.2-1.3); Blood Urea Nitrogen 52 mg/dL (7-17); Calcium 8.8 mg/dL (8.4-10.2); Carbon Dioxide 30 mmol/L (22-30); Chloride 95 mmol/L (98-107); Estimated CRCL calculation 22 ml/min; Estimated Glomerular Filt Rate 14; Glucose 126 mg/dL (65-110); Phosphorus 4.8 mg/dL (2.5-4.5); Potassium 3.4 mmol/L (3.4-5.0); Sodium 133 mmol/L (137-145); Triglycerides 125 mg/dL (<150)
[2021-09-14 07:41] LABS: Glucose Point of Care 132 mg/dl (65-105)
[2021-09-14] MEDS: MINERAL OIL/WHITE PETROLATUM OINTMENT 1 APPLIC EACH EYE (09:15)
--- NOTE | 2021-09-14 11:00 | P.PNNP_ITS ---
Progress Note: A&P Assessment and Plan (1) JERRY (acute kidney injury): Code(s): N17.9 - Acute kidney failure, unspecified Status: Acute Assessment and Plan: * due to ATN from: * hemorrhagic shock * contrast exposure * obstruction * evaluation to date: * renal ultrasound with evidence of obstruction - s/p nephrostomy tube placement * CPK mildly elevated (but not enough to affect kidney function) * urine electrolytes non-prerenal * She had dialysis yesterday. * Creatinine under pretty good control. * Still making lots of urine even without the Bumex. * Will hold off on dialysis for a few days and see how she does. * discussed with Dr Mclaughlin. (2) Bilateral hydronephrosis: Code(s): N13.30 - Unspecified hydronephrosis Status: Acute Assessment and Plan: * as noted by renal ultrasound * CT scan (09/02/20) with moderate bilateral hydronephrosis and hydroureter secondary to mass effect from the pelvic hematoma, worsened from 08/30/21 * s/p bilateral CT-guided nephrostomy tube placement on 09/02/20 * Management per Urology (3) Anemia associated with acute blood loss: Code(s): D62 - Acute posthemorrhagic anemia Status: Acute Assessment and Plan: * as noted by recent CT scan: * large hematoma in right pelvis extending into the peritoneum with two foci of active extravasation of contrast; hematomas in the rectus abdominis muscles, right worse than left * Hemoglobin ranging around 9.0 (4) Hemorrhagic shock: Code(s): R57.8 - Other shock Status: Acute Assessment and Plan: * resolved. * off pressors. (5) Acute respiratory failure with hypoxia: Code(s): J96.01 - Acute respiratory failure with hypoxia Status: Acute Assessment and Plan: * due to cardiac arrest, COVID pneumonia, and pulmonary embolism * continue ventilator support (6) Pneumonia due to COVID-19 virus: Code(s): U07.1 - COVID-19; J12.82 - Pneumonia due to coronavirus disease 2019 Status: Acute Assessment and Plan: * positive by recent testing * on steroids (more so for shock than COVID at this time) * s/p convalscent plasam on 08/22/21 * s/p remdesivir but stopped due to elevated LFTs and renal dysfunction * Still on respiratory isolation (7) Pulmonary embolism: Qualifiers: Pulmonary embolism type: unspecified Chronicity: acute Acute cor pulmonale presence: without acute cor pulmonale Qualified Code(s): I26.99 - Other pulmonary embolism without acute cor pulmonale Code(s): I26.99 - Other pulmonary embolism without acute cor pulmonale Status: Acute Assessment and Plan: * as diagnosed by CT angiogram of chest * off all anticoagulation due to #3 and #4 (8) Encephalopathy: Code(s): G93.40 - Encephalopathy, unspecified Status: Acute Assessment and Plan: * Currently sedated Subjective Date/time seen: 09/14/21 11:00 Interval history: patient is sedated and on ventilator. Review of systems unavailable due to medical condition Exam Narrative: General: WD/WN female intubated/sedated on ventilator Heart: normal S1 and S2; no rub Lungs: coarse breath sounds Abdomen: soft, nontender, nondistended; RLQ bruising noted Extremities: 1+ edema and no cyanosis Skin: no rash or subcu nodules Objective Data Vital Signs Vital Signs: Vital Signs - 24 hr 09/13/
--- NOTE | 2021-09-14 11:00 | PM.PNNEP ---
Progress Note: A&P Assessment and Plan (1) JERRY (acute kidney injury): Code(s): N17.9 - Acute kidney failure, unspecified Status: Acute Assessment and Plan: due to ATN from: hemorrhagic shock contrast exposure obstruction evaluation to date: renal ultrasound with evidence of obstruction - s/p nephrostomy tube placement CPK mildly elevated (but not enough to affect kidney function) urine electrolytes non-prerenal She had dialysis yesterday. Creatinine under pretty good control. Still making lots of urine even without the Bumex. Will hold off on dialysis for a few days and see how she does. discussed with Dr Mclaughlin. (2) Bilateral hydronephrosis: Code(s): N13.30 - Unspecified hydronephrosis Status: Acute Assessment and Plan: as noted by renal ultrasound CT scan (09/02/20) with moderate bilateral hydronephrosis and hydroureter secondary to mass effect from the pelvic hematoma, worsened from 08/30/21 s/[address]-guided nephrostomy tube placement on 09/02/20 Management per Urology (3) Anemia associated with acute blood loss: Code(s): D62 - Acute posthemorrhagic anemia Status: Acute Assessment and Plan: as noted by recent CT scan: large hematoma in right pelvis extending into the peritoneum with two foci of active extravasation of contrast; hematomas in the rectus abdominis muscles, right worse than left Hemoglobin ranging around 9.0 (4) Hemorrhagic shock: Code(s): R57.8 - Other shock Status: Acute Assessment and Plan: resolved. off pressors. (5) Acute respiratory failure with hypoxia: Code(s): J96.01 - Acute respiratory failure with hypoxia Status: Acute Assessment and Plan: due to cardiac arrest, COVID pneumonia, and pulmonary embolism continue ventilator support (6) Pneumonia due to COVID-19 virus: Code(s): U07.1 - COVID-19; J12.82 - Pneumonia due to coronavirus disease 2019 Status: Acute Assessment and Plan: positive by recent testing on steroids (more so for shock than COVID at this time) s/p convalscent plasam on 08/22/21 s/p remdesivir but stopped due to elevated LFTs and renal dysfunction Still on respiratory isolation (7) Pulmonary embolism: Qualifiers: Pulmonary embolism type: unspecified Chronicity: acute Acute cor pulmonale presence: without acute cor pulmonale Qualified Code(s): I26.99 - Other pulmonary embolism without acute cor pulmonale Code(s): I26.99 - Other pulmonary embolism without acute cor pulmonale Status: Acute Assessment and Plan: as diagnosed by CT angiogram of chest off all anticoagulation due to #3 and #4 (8) Encephalopathy: Code(s): G93.40 - Encephalopathy, unspecified Status: Acute Assessment and Plan: Currently sedated Subjective Date/time seen: 09/14/21 11:00 Interval history: patient is sedated and on ventilator. Review of systems unavailable due to medical condition Exam Narrative: General: WD/WN female intubated/sedated on ventilator Heart: normal S1 and S2; no rub Lungs: coarse breath sounds Abdomen: soft, nontender, nondistended; RLQ bruising noted Extremities: 1+ edema and no cyanosis Skin: no rash or subcu nodules Objective Data Vital Signs Vital Signs: Vital Signs - 24 hr 09/13/21 11:45 09/13/21 12:00 09/13/21 13:13 Temperature 37.2 C Pulse Rate 112 H 113 H 111 H Respiratory Rate 28 H 29 H Blood Pressure 107/73 Pulse Oximetry 100 99 09/13/21 13:45 09/13/21 14:00 09/13/21 14:11 Temperature 37.1 C Pulse Rate 110 H 110 H 112 H Respiratory Rate 29 H 25 H Blood Pressure 124/75 112/74 Pulse Oximetry 99 100 99 09/13/21 14:15 09/13/21 14:30 09/13/21 14:45 Temperature Pulse Rate 109 H 116 H 116 H Respiratory Rate Blood Pressure 127/77 135/89 140/95 H Pulse Oximetry 09/13/21 15:0
--- NOTE | 2021-09-14 11:21 | PCFNICU ---
ICU Rounding Note: Pt current nutrition is Nepro at 35 ml/hr over 22 hours. Last recorded weight is 112.7 kg, up from 100.3 kg on admit. Bowel Motility:FMS Labs Reviewed:PO4 4.8,BUN 52, Cr 3.4,Alb 3.2, Hct 26.9, Hgb 8.6 Meds Noted:Albutein, Precedex, Bumetanide, NovoLog, Glucose Skin: WNL Additional Notes: Patient remains on mechanical vent and tube feedings of Nepro at 45 ml/hr over 22 hours and tolerating. Free water flush 30 ml q 4 hours. Banatrol Plus q 6hours for stool bulking. Agree with diet orders. Following daily in ICU rounds. Will monitor every Saturday and Saturday.
[2021-09-14 12:11] LABS: Glucose Point of Care 117 mg/dl (65-105)
--- NOTE | 2021-09-14 13:05 | WPDINTPN ---
Progress Note: A&P Assessment and Plan (1) Anemia associated with acute blood loss: Code(s): D62 - Acute posthemorrhagic anemia Status: Acute Assessment and Plan: Patient initially received 4 units of PRBC, 2 units of FFP, 1 unit of cryo. 08/31 2 units of PRBC and 4 units of FFP were given. Patient was also given vitamin K. Hospital does not have andexanet and Kcentra not given due to high risk of new or worsening of her current thrombosis as patient already has PE and and also has COVID-19. Also her last dose of Eliquis was more than 24 hours ago 09/01 2 units of PRBC, DDAVP, tranexamic acid was given 09/02 1 unit of PRBC given 09/03 1 unit of PRBC given overnight 09/05 1 unit PRBC transfused Her hemoglobin has been stable over last few days. Continue monitoring and transfuse as needed Continue to Monitor coags which are in acceptable range at this time At this point the goal is to maintain coags in acceptable range, transfuse blood products as needed to maintain adequate hemoglobin level. It seems the bleeding has stopped at this time. She will need eventually need definitive treatment whether vascular and/or surgical for that large hematoma. CT 08/30 IMPRESSION: 1. Large hematoma in right pelvis extending into the peritoneum with two foci of active extravasation of contrast. 2. Hematomas in the rectus abdominis muscles, right worse than left. 3. Splenic infarcts. Small volume of perisplenic ascites. 4. Diffuse lung disease, consistent with COVID-[address] abdomen pelvis 09/02 3. Large volume of extraperitoneal hematoma in the pelvis centered to the right of midline, mildly worsened from 08/30/21. Moderate volume of hemoperitoneum, worsened from 08/30/21. 4. Moderate bilateral hydronephrosis and hydroureter secondary to mass effect from the pelvic hematoma, worsened from 08/30/21. 5. Hematomas in the rectus abdominis muscles, right worse than left, stable from 08/30/21. 6. Splenic infarcts again seen. 08/31 I wanted to to transfer patient to a facility where patient can get angiogram and possible embolization if ongoing bleed but due to current COVID 19 pandemic there are no ICU beds available. I called [facility] including [facility] and they did not have any ICU bed available in any of the 6 hospitals. I gave them patient information and they will call me if a bed opens up. Hospitalist provider called [facility] to see if they have any bed available General surgery was consulted but no surgical options at this time 09/01 I called [facility] and [facility] again and no beds available. Hospitals in [place] are also not accepting any transfers 09/02 patient remains on wait list at [facility] 09/05 I again confirmed today the patient is on wait list at [facility] and [facility] is still not accepting any transfers (2) Hemorrhagic shock: Code(s): R57.8 - Other shock Status: Acute Assessment and Plan: Secondary to blood loss and possibly sepsis Improved as patient is now off of vasopressors Monitor closely Patient has received significant amount of volume and is overall volume overloaded. Hold further IV fluids and only administer blood products as needed (3) Sepsis: Code(s): A41.9 - Sepsis, unspecified organism Status: Acute Assessment and Plan: Urine and blood cultures have been negative Sputum culture grew yeast which is likely a colonizer Femoral central venous catheter was removed on 09/05 She is afebrile and her WBCs improving Continue vancomycin and imipenem for 7 days which will complete on 09/14 (4) Pulmonary embolism: Qualifiers: Pulmonary embolism type: unspecified Chronicity: acute Acute cor pulmonale presence: without acute cor pulmonale Qualified Code(s): I26.99 - Other pulmonary embolism without acute cor pulmonale Code(s): I26.99 - Other pulmonary embolism without acute cor pulmonale Status: Acute Assessment and Plan: Currently
[2021-09-14 13:22] LABS: Alveolar/Arterial O2 Gradient 50.2 mmHg; Fractional Inspired Oxygen 28 %; HCO3 ABG 25.5 mEq/l (22.0-26.0); Oxygen Content ABG 13.7 %vol (16.0-22.0); Oxygen Saturation ABG 98.2 % (95.0-100.0); Oxyhemoglobin 96.2 % THb (90.0-100.0); PCO2 ABG 35.7 mmHg (35.0-45.0); PO2 ABG 107.3 mmHg (80.0-100.0); PO2 FiO2 Ratio Arterial Blood 3.83 %; pH ABG 7.472 (7.350-7.450)
[2021-09-14 13:23] LABS: Arterial Blood Gas Vent Mode SPONTANEOUS; Device VENTILATOR; Modified Allen's Test Pass; Site Drawn RIGHT RADIAL
[2021-09-14 13:24] LABS: Arterial Blood Gas PEEP 5 cmH2O; Arterial Blood Gas Pressure Support 5 cmH2O
--- NOTE | 2021-09-14 14:03 | PM.EVENT ---
Event Note Event Note Event Note: 5/5 PSV SBT done for more than 1 hour. RSBI, ABGI and Vitals acceptable. Pt week but awake and following commands. Decreased Precedex. Cuff leak present. I will extubate and monitor. NPO for now.
--- NOTE | 2021-09-14 14:07 | WPDUROPN2 ---
Progress Note: A&P Assessment and Plan (1) JERRY (acute kidney injury): Code(s): N17.9 - Acute kidney failure, unspecified Status: Acute (2) Bilateral hydronephrosis: Code(s): N13.30 - Unspecified hydronephrosis Status: Acute Assessment and Plan: s/p B PCN tube placement yesterday for B hydro due to pelvic hematoma - continue nephrostomy tubes and castaneda for now - minimal UOP with rising Cr. Patient's tract is currently maximally drained with castaneda and PCN tubes to alleviate any obstructive component to her JERRY. Will defer to nephrology for ongoing management of JERRY in setting of recent cardiac arrest and levophed requirement; may require HD but will defer to nephrology. 09/04/21 Continues to have some, but minimal, urine output via both PCN tubes and urethral catheter. 09/14/21 Urine output remains strong via each nephrostomy tube. When more stable we can internalize drainage (ie. place stents). Subjective Subjective Date/Time Seen: 09/14/21 14:07 Remains intubated U/O remains good via each PCN tube. Review of Systems Review of Systems: ROS unobtainable: Yes unobtainable due to endotracheal tube Objective Data Vital Signs Vital Signs: Vital Signs - 24 hr 09/13/21 14:11 09/13/21 14:15 09/13/21 14:30 Temperature Pulse Rate 112 H 109 H 116 H Respiratory Rate Blood Pressure 127/77 135/89 Pulse Oximetry 99 09/13/21 14:45 09/13/21 15:00 09/13/21 15:15 Temperature Pulse Rate 116 H 110 H 116 H Respiratory Rate Blood Pressure 140/95 H 139/93 H 140/93 H Pulse Oximetry 09/13/21 15:30 09/13/21 15:45 09/13/21 16:00 Temperature Pulse Rate 117 H 116 H 103 H Respiratory Rate 33 H Blood Pressure 140/90 130/95 H 120/81 Pulse Oximetry 99 09/13/21 16:15 09/13/21 16:30 09/13/21 16:45 Temperature Pulse Rate 116 H 120 H 121 H Respiratory Rate Blood Pressure 127/87 144/86 H 134/93 H Pulse Oximetry 09/13/21 16:55 09/13/21 17:00 09/13/21 17:04 Temperature Pulse Rate 111 H 122 H 121 H Respiratory Rate Blood Pressure 136/86 140/84 Pulse Oximetry 100 09/13/21 17:09 09/13/21 17:20 09/13/21 18:00 Temperature 98.5 F 98.7 F Pulse Rate 123 H 113 H 115 H Respiratory Rate 39 H 30 H 23 H Blood Pressure 135/93 H 123/76 Pulse Oximetry 99 99 09/13/21 20:00 09/13/21 20:04 09/13/21 20:49 Temperature 100.6 F H Pulse Rate 94 97 86 Respiratory Rate 28 H 25 H Blood Pressure 124/82 Pulse Oximetry 95 99 09/13/21 22:00 09/13/21 22:24 09/13/21 23:27 Temperature Pulse Rate 84 88 97 Respiratory Rate 25 H 26 H Blood Pressure 108/65 Pulse Oximetry 100 99 09/13/21 23:38 09/14/21 00:00 09/14/21 00:25 Temperature 99.6 F Pulse Rate 89 103 H 108 H Respiratory Rate 28 H 27 H 33 H Blood Pressure 111/72 Pulse Oximetry 99 99 09/14/21 01:33 09/14/21 02:00 09/14/21 02:40 Temperature Pulse Rate 101 H 85 82 Respiratory Rate 34 H 25 H Blood Pressure 108/69 Pulse Oximetry 97 97 09/14/21 03:10 09/14/21 04:00 09/14/21 05:21 Temperature 99.2 F Pulse Rate 82 81 78 Respiratory Rate 28 H 29 H Blood Pressure 116/63 Pulse Oximetry 97 98 97 09/14/21 05:33 09/14/21 05:43 09/14/21 06:00 Temperature Pulse Rate 84 84 81 Respiratory Rate 33 H 33 H 27 H Blood Pressure 113/69 Pulse Oximetry 98 09/14/21 08:00 09/14/21 08:17 09/14/21 09:13 Temperature 97.9 F Pulse Rate 77 80 75 Respiratory Rate 27 H 25 H Blood Pressure 111/72 Pulse Oximetry 99 98 09/14/21 10:00 09/14/21 11:00 09/14/21 12:55 Temperature Pulse Rate 72 80 73 Respiratory Rate 25 H 24 H Blood Pressure 110/67 Pulse Oximetry 98 98 Intake/Output Intake/Output: Intake & Output 0109/12/21 09/13/21 09/14/21 23:59 23:59 23:59 23:59 Intake Total 3728 4721 7258 2878 Output Total 9403 7475 3274 750 [facility] [phone] Meds/Results Medications: Active Medications Generi
[2021-09-14 16:22] LABS: Glucose Point of Care 98 mg/dl (65-105)
[2021-09-14] MEDS: KCL 40 MEQ/WATER 100 ML 100 ML 25 ML IVPB (17:19)
[2021-09-14] MEDS: CENTRAL LINE FLUSH 10 ML IV PUSH (17:22)
[2021-09-14 20:24] LABS: Glucose Point of Care 85 mg/dl (65-105)
[2021-09-14] MEDS: dexmedeTOMIDine 400 MCG/100 ML 400 MCG/100 ML BAG 6.25 MCG IV CONT (20:51)
[2021-09-15] VITALS (14 sets, daily range): BP systolic 111–142; BP diastolic 71–92; PULSE 89–109; RESP 25–300; TEMP 37–37.7; O2SAT 97–100
[2021-09-15 00:33] LABS: Glucose Point of Care 89 mg/dl (65-105)
[2021-09-15 05:03] LABS: Hematocrit 28.5 % (37.0-47.0); Mean Corpuscular HGB Conc 31.6 g/dl (32-36); Mean Corpuscular Hemoglobin 29.9 pg (26-34); Mean Corpuscular Volume 94.7 fl (80-100); Mean Platelet Volume 10.5 fl (7.4-10.4); Platelet Count Result 198 k/mm3 (150-375); Red Blood Count 3.01 M/mm3 (4.2-5.4); Red Cell Distribution Width 16.6 % (11.5-14.5)
[2021-09-15 05:29] LABS: Alanine Aminotransferase 39 U/L (4-35); Albumin Level 3.5 g/dL (3.5-5.1); Alkaline Phosphatase 151 U/L (38-126); Anion Gap 10 mmol/L (8-16); Aspartate Amino Transferase 52 U/L (14-36); Bilirubin,Total 1.3 mg/dL (0.2-1.3); Blood Urea Nitrogen 69 mg/dL (7-17); Calcium 8.9 mg/dL (8.4-10.2); Carbon Dioxide 28 mmol/L (22-30); Chloride 97 mmol/L (98-107); Estimated CRCL calculation 18 ml/min; Estimated Glomerular Filt Rate 11; Glucose 88 mg/dL (65-110); Magnesium 2.1 mg/dL (1.6-2.3); Phosphorus 6.1 mg/dL (2.5-4.5); Potassium 3.6 mmol/L (3.4-5.0); Sodium 135 mmol/L (137-145)
[2021-09-15 06:48] LABS: Carboxyhemoglobin 0.4 % THb (0-2.0); Fractional Inspired Oxygen 28 %; HCO3 ABG 24.6 mEq/l (22.0-26.0); Methemoglobin ABG 0.4 %THb (0-1.5); Oxygen Content ABG 14.4 %vol (16.0-22.0); Oxygen Saturation ABG 97.8 % (95.0-100.0); Oxyhemoglobin 95.9 % THb (90.0-100.0); PCO2 ABG 35.5 mmHg (35.0-45.0); PO2 ABG 98.8 mmHg (80.0-100.0); PO2 FiO2 Ratio Arterial Blood 3.53 %; Reduced Hemoglobin 3.3 %THb (0-5.0); Total Hemoglobin 10.6 g/dL (12.0-18.0); pH ABG 7.459 (7.350-7.450)
[2021-09-15 06:49] LABS: Device NASAL CANNULA; Modified Allen's Test Pass; Site Drawn RIGHT RADIAL
[2021-09-15] MEDS: EPOETIN ALFA-EPBX 10,000 UNITS/ML VIAL 10000 UNITS SUB-Q (08:56)
[2021-09-15 12:14] LABS: Glucose Point of Care 82 mg/dl (65-105)
--- NOTE | 2021-09-15 13:16 | PM.PNNEP ---
Progress Note: A&P Assessment and Plan (1) JERRY (acute kidney injury): Code(s): N17.9 - Acute kidney failure, unspecified Status: Acute Assessment and Plan: due to ATN from: hemorrhagic shock contrast exposure obstruction evaluation to date: renal ultrasound with evidence of obstruction - s/p nephrostomy tube placement CPK mildly elevated (but not enough to affect kidney function) urine electrolytes non-prerenal creatinine under good control making lots of urine even without diuretic therapy hold dialysis for now follow trend of repeat labs and UOP (2) Bilateral hydronephrosis: Code(s): N13.30 - Unspecified hydronephrosis Status: Acute Assessment and Plan: as noted by renal ultrasound CT scan (09/02/20) with moderate bilateral hydronephrosis and hydroureter secondary to mass effect from the pelvic hematoma, worsened from 08/30/[address] s[address]-guided nephrostomy tube placement on 09/02/20 management per Urology (3) Anemia associated with acute blood loss: Code(s): D62 - Acute posthemorrhagic anemia Status: Acute Assessment and Plan: as noted by recent CT scan: large hematoma in right pelvis extending into the peritoneum with two foci of active extravasation of contrast; hematomas in the rectus abdominis muscles, right worse than left hemoglobin relatively stable (4) Hemorrhagic shock: Code(s): R57.8 - Other shock Status: Acute Assessment and Plan: resolved off pressors (5) Acute respiratory failure with hypoxia: Code(s): J96.01 - Acute respiratory failure with hypoxia Status: Acute Assessment and Plan: resolved - extubated due to cardiac arrest, COVID pneumonia, and pulmonary embolism (6) Pneumonia due to COVID-19 virus: Code(s): U07.1 - COVID-19; J12.82 - Pneumonia due to coronavirus disease 2019 Status: Acute Assessment and Plan: positive by recent testing on steroids (more so for shock than COVID at this time) s/p convalscent plasma on 08/22/21 s/p remdesivir but stopped due to elevated LFTs and renal dysfunction (7) Pulmonary embolism: Qualifiers: Acute cor pulmonale presence: without acute cor pulmonale Chronicity: acute Pulmonary embolism type: unspecified Qualified Code(s): I26.99 - Other pulmonary embolism without acute cor pulmonale Code(s): I26.99 - Other pulmonary embolism without acute cor pulmonale Status: Acute Assessment and Plan: as diagnosed by CT angiogram of chest off all anticoagulation due to #3 and #4 Will continue to follow. Subjective Date/time seen: 09/15/21 13:16 Chart reviewed since last seen - assuming care from Dr. Patel; extubated yesterday and respiratory status/breathing seems relatively stable; better urine output noted as well; mentaiton seems to be slowly improving; no acute distress noted. Exam Narrative: General: WD/WN female in NAD Heart: normal S1 and S2; no rub Lungs: coarse breath sounds Abdomen: soft, nontender, nondistended; RLQ bruising noted Extremities: 1+ edema and no cyanosis Skin: warm and dry Objective Data Vital Signs Vital Signs: Vital Signs Temp Pulse Resp BP Pulse Ox 09/15/21 12:00 37.2 C 101 H 27 H 142/88 H 99 09/15/21 10:00 93 30 H 141/84 H 99 09/15/21 08:00 37.2 C 96 30 H 129/82 100 09/15/21 06:00 96 32 H 124/75 100 09/15/21 04:00 37.4 C 104 H 300 H 118/71 100 09/15/21 02:00 94 32 H 111/91 H 100 09/15/21 00:00 37.7 C H 102 H 28 H 124/75 98 09/14/21 22:00 94 34 H 121/76 99 09/14/21 20:51 99 23 H 09/14/21 20:40 109 H 23 H 09/14/21 20:00 36.6 C 101 H 29 H 131/77 94 09/14/21 18:00 99 28 H 133/85 100 09/14/21 16:00 36.2 C L 89 27 H 119/79 100 Intake/Output Intake/Output: Intake & Output 09/12/21 09/13/21 09/14/21 09/15/21 23:59 23:59 23:59 23:59 I
--- NOTE | 2021-09-15 13:16 | P.PNNP_ITS ---
Progress Note: A&P Assessment and Plan (1) JERRY (acute kidney injury): Code(s): N17.9 - Acute kidney failure, unspecified Status: Acute Assessment and Plan: * due to ATN from: * hemorrhagic shock * contrast exposure * obstruction * evaluation to date: * renal ultrasound with evidence of obstruction - s/p nephrostomy tube placement * CPK mildly elevated (but not enough to affect kidney function) * urine electrolytes non-prerenal * creatinine under good control * making lots of urine even without diuretic therapy * hold dialysis for now * follow trend of repeat labs and UOP (2) Bilateral hydronephrosis: Code(s): N13.30 - Unspecified hydronephrosis Status: Acute Assessment and Plan: * as noted by renal ultrasound * CT scan (09/02/20) with moderate bilateral hydronephrosis and hydroureter secondary to mass effect from the pelvic hematoma, worsened from 08/30/21 * s/p bilateral CT-guided nephrostomy tube placement on 09/02/20 * management per Urology (3) Anemia associated with acute blood loss: Code(s): D62 - Acute posthemorrhagic anemia Status: Acute Assessment and Plan: * as noted by recent CT scan: * large hematoma in right pelvis extending into the peritoneum with two foci of active extravasation of contrast; hematomas in the rectus abdominis muscles, right worse than left * hemoglobin relatively stable (4) Hemorrhagic shock: Code(s): R57.8 - Other shock Status: Acute Assessment and Plan: * resolved * off pressors (5) Acute respiratory failure with hypoxia: Code(s): J96.01 - Acute respiratory failure with hypoxia Status: Acute Assessment and Plan: * resolved - extubated * due to cardiac arrest, COVID pneumonia, and pulmonary embolism (6) Pneumonia due to COVID-19 virus: Code(s): U07.1 - COVID-19; J12.82 - Pneumonia due to coronavirus disease 2019 Status: Acute Assessment and Plan: * positive by recent testing * on steroids (more so for shock than COVID at this time) * s/p convalscent plasma on 08/22/21 * s/p remdesivir but stopped due to elevated LFTs and renal dysfunction (7) Pulmonary embolism: Qualifiers: Acute cor pulmonale presence: without acute cor pulmonale Chronicity: acute Pulmonary embolism type: unspecified Qualified Code(s): I26.99 - Other pulmonary embolism without acute cor pulmonale Code(s): I26.99 - Other pulmonary embolism without acute cor pulmonale Status: Acute Assessment and Plan: * as diagnosed by CT angiogram of chest * off all anticoagulation due to #3 and #4 Will continue to follow. Subjective Date/time seen: 09/15/21 13:16 Chart reviewed since last seen - assuming care from Dr. Patel; extubated yeste rday and respiratory status/breathing seems relatively stable; better urine output noted as well; mentaiton seems to be slowly improving; no acute distress noted. Exam Narrative: General: WD/WN female in NAD Heart: normal S1 and S2; no rub Lungs: coarse breath sounds Abdomen: soft, nontender, nondistended; RLQ bruising noted Extremities: 1+ edema and no cyanosis Skin: warm and dry Objective Data Vital Signs Vital Signs: Vital Signs Temp Pulse Resp BP Pulse Ox 09/15/21 12:00 37.2 C 101 H 27 H 142/88 H 99 09/15/21 10:00 93 30 H 141/84 H
--- NOTE | 2021-09-15 13:25 | WPDINTPN ---
Progress Note: A&P Assessment and Plan (1) Anemia associated with acute blood loss: Code(s): D62 - Acute posthemorrhagic anemia Status: Acute Assessment and Plan: RESOLVED Patient initially received 4 units of PRBC, 2 units of FFP, 1 unit of cryo. 08/31 2 units of PRBC and 4 units of FFP were given. Patient was also given vitamin K. Hospital does not have andexanet and Kcentra not given due to high risk of new or worsening of her current thrombosis as patient already has PE and and also has COVID-19. Also her last dose of Eliquis was more than 24 hours ago 09/01 2 units of PRBC, DDAVP, tranexamic acid was given 09/02 1 unit of PRBC given 09/03 1 unit of PRBC given overnight 09/05 1 unit PRBC transfused Her hemoglobin has been stable over last few days. Continue monitoring and transfuse as needed Continue to Monitor coags which are in acceptable range at this time At this point the goal is to maintain coags in acceptable range, transfuse blood products as needed to maintain adequate hemoglobin level. It seems the bleeding has stopped at this time. She will need eventually need definitive treatment whether vascular and/or surgical for that large hematoma. CT 08/30 IMPRESSION: 1. Large hematoma in right pelvis extending into the peritoneum with two foci of active extravasation of contrast. 2. Hematomas in the rectus abdominis muscles, right worse than left. 3. Splenic infarcts. Small volume of perisplenic ascites. 4. Diffuse lung disease, consistent with COVID-[address] abdomen pelvis 09/02 3. Large volume of extraperitoneal hematoma in the pelvis centered to the right of midline, mildly worsened from 08/30/21. Moderate volume of hemoperitoneum, worsened from 08/30/21. 4. Moderate bilateral hydronephrosis and hydroureter secondary to mass effect from the pelvic hematoma, worsened from 08/30/21. 5. Hematomas in the rectus abdominis muscles, right worse than left, stable from 08/30/21. 6. Splenic infarcts again seen. 08/31 I wanted to to transfer patient to a facility where patient can get angiogram and possible embolization if ongoing bleed but due to current COVID 19 pandemic there are no ICU beds available. I called [facility] and they did not have any ICU bed available in any of the 6 hospitals. I gave them patient information and they will call me if a bed opens up. Hospitalist provider called [facility] to see if they have any bed available General surgery was consulted but no surgical options at this time 09/01 I called [facility] and [facility] again and no beds available. Hospitals in [place] are also not accepting any transfers 09/02 patient remains on wait list at [facility] 09/05 I again confirmed today the patient is on wait list at [facility] and [facility] is still not accepting any transfers (2) Hemorrhagic shock: Code(s): R57.8 - Other shock Status: Acute Assessment and Plan: RESOLVED Secondary to blood loss and possibly sepsis Improved as patient is now off of vasopressors Monitor closely Patient has received significant amount of volume and is overall volume overloaded. Hold further IV fluids and only administer blood products as needed (3) Sepsis: Code(s): A41.9 - Sepsis, unspecified organism Status: Acute Assessment and Plan: RESOLVED Urine and blood cultures have been negative Sputum culture grew yeast which is likely a colonizer Femoral central venous catheter was removed on 09/05 She is afebrile and her WBCs improving Continue vancomycin and imipenem for 7 days which will complete on 09/14 (4) Pulmonary embolism: Qualifiers: Pulmonary embolism type: unspecified Chronicity: acute Acute cor pulmonale presence: without acute cor pulmonale Qualified Code(s): I26.99 - Other pulmonary embolism without acute cor pulmonale Code(s): I26.99 - Other pulmonary embolism without acute cor pulmonale Status: Acute Ass
--- NOTE | 2021-09-15 13:32 | PCNFU ---
Nutrition Follow-Up Complete: Inadequate Oral Intake as related to mechanical vent as evidenced by NPO. goal: Meet estimated nutritional needs We will continue current goal. Pt current nutrition is NPO. Last recorded weight is 115.8 kg. up from 100.3 kg on admit. Bowel Motility: FMS Labs Reviewed:PO4 6.1,BUN 69, Cr 4.10, Na 135, Hct 28.5, Hgb 9.0 Meds Noted:Retacrit. Skin: Left Chest-Deep Tissue Additional Notes: Patient has been extubated. Plans for OT, PT, Speech evals. PICC line. Bilateral Nephrostomy tubes. If diet order advanced would recommend Renal Dialysis diet. Monitoring: Will monitor every 3 days.
--- NOTE | 2021-09-15 16:26 | PCSTNOTE ---
Please refer to the Bedside Swallow Evaluation in the EMR. Please note, silent aspiration cannot be ruled out at bedside.
[2021-09-15] MEDS: CENTRAL LINE FLUSH 10 ML IV PUSH (17:15)
[2021-09-15 17:19] LABS: Glucose Point of Care 77 mg/dl (65-105)
--- NOTE | 2021-09-15 18:45 | PC.NURSE ---
This patient, Arielle Zuleta, was transferred to [203] on 09/15/21 at 1845. Personal belongings sent with patient. Report given to [Fauzia Amor RN]. Appropriate documentation sent with patient.
--- NOTE | 2021-09-15 20:07 | PC.NURSE ---
Report received by SARAH Kirby with the ICU department at 1820. All questions answered and plan of care reviewed. Patient to go to IMU room 203.
--- NOTE | 2021-09-15 20:08 | PC.NURSE ---
Patient arrived to room 203 at 1845 from the ICU department. Patient oriented to unit policies and procedures. Call light within reach. This nurse to resume care at this time.
[2021-09-15 20:22] LABS: Glucose Point of Care 76 mg/dl (65-105)
[2021-09-16] VITALS (22 sets, daily range): BP systolic 123–150; BP diastolic 75–86; PULSE 95–120; RESP 20–26; TEMP 36–37.1; O2SAT 94–100
[2021-09-16] LABS: Glucose Point of Care 77 mg/dl (65-105)
[2021-09-16 04:03] LABS: Glucose Point of Care 73 mg/dl (65-105)
[2021-09-16 05:03] LABS: Hemoglobin 9.4 g/dL (12.0-15.0); Mean Corpuscular HGB Conc 32.4 g/dl (32-36); Mean Corpuscular Hemoglobin 30.2 pg (26-34); Mean Corpuscular Volume 93.2 fl (80-100); Mean Platelet Volume 10.4 fl (7.4-10.4); Platelet Count Result 228 k/mm3 (150-375); Red Blood Count 3.11 M/mm3 (4.2-5.4); Red Cell Distribution Width 16.3 % (11.5-14.5); White Blood Count 9.1 K/mm3 (4.5-10.0)
[2021-09-16 05:27] LABS: Alanine Aminotransferase 42 U/L (4-35); Albumin Level 3.6 g/dL (3.5-5.1); Alkaline Phosphatase 152 U/L (38-126); Anion Gap 11 mmol/L (8-16); Aspartate Amino Transferase 54 U/L (14-36); Bilirubin,Total 1.4 mg/dL (0.2-1.3); Blood Urea Nitrogen 81 mg/dL (7-17); Carbon Dioxide 27 mmol/L (22-30); Chloride 102 mmol/L (98-107); Estimated CRCL calculation 17 ml/min; Estimated Glomerular Filt Rate 10; Glucose 84 mg/dL (65-110); Magnesium 2.2 mg/dL (1.6-2.3); Potassium 3.5 mmol/L (3.4-5.0); Sodium 140 mmol/L (137-145)
[2021-09-16 05:52] LABS: Alveolar/Arterial O2 Gradient 58.2 mmHg; Carboxyhemoglobin 0.1 % THb (0-2.0); Fractional Inspired Oxygen 28 %; HCO3 ABG 23.5 mEq/l (22.0-26.0); Methemoglobin ABG 0.3 %THb (0-1.5); Oxygen Saturation ABG 97.9 % (95.0-100.0); Oxyhemoglobin 96.5 % THb (90.0-100.0); PCO2 ABG 33.9 mmHg (35.0-45.0); PO2 ABG 101.4 mmHg (80.0-100.0); PO2 FiO2 Ratio Arterial Blood 3.62 %; Reduced Hemoglobin 3.1 %THb (0-5.0); Site Drawn LEFT RADIAL; Total Hemoglobin 10.2 g/dL (12.0-18.0); pH ABG 7.458 (7.350-7.450)
[2021-09-16 05:53] LABS: Device NASAL CANNULA; Modified Allen's Test Pass
[2021-09-16 08:30] LABS: Glucose Point of Care 76 mg/dl (65-105)
--- NOTE | 2021-09-16 11:14 | PM.IMPN ---
Progress Note: A&P Assessment and Plan (1) Anemia associated with acute blood loss: Code(s): D62 - Acute posthemorrhagic anemia Status: Acute Assessment and Plan: RESOLVED Patient initially received 4 units of PRBC, 2 units of FFP, 1 unit of cryo. 08/31 2 units of PRBC and 4 units of FFP were given. Patient was also given vitamin K. Hospital does not have andexanet and Kcentra not given due to high risk of new or worsening of her current thrombosis as patient already has PE and and also has COVID-19. Also her last dose of Eliquis was more than 24 hours ago 09/01 2 units of PRBC, DDAVP, tranexamic acid was given 09/02 1 unit of PRBC given 09/03 1 unit of PRBC given overnight 09/05 1 unit PRBC transfused Her hemoglobin has been stable over last few days. Continue monitoring and transfuse as needed Continue to Monitor coags which are in acceptable range at this time At this point the goal is to maintain coags in acceptable range, transfuse blood products as needed to maintain adequate hemoglobin level. It seems the bleeding has stopped at this time. She will need eventually need definitive treatment whether vascular and/or surgical for that large hematoma. CT 08/30 IMPRESSION: 1. Large hematoma in right pelvis extending into the peritoneum with two foci of active extravasation of contrast. 2. Hematomas in the rectus abdominis muscles, right worse than left. 3. Splenic infarcts. Small volume of perisplenic ascites. 4. Diffuse lung disease, consistent with COVID-[address] abdomen pelvis 09/02 3. Large volume of extraperitoneal hematoma in the pelvis centered to the right of midline, mildly worsened from 08/30/21. Moderate volume of hemoperitoneum, worsened from 08/30/21. 4. Moderate bilateral hydronephrosis and hydroureter secondary to mass effect from the pelvic hematoma, worsened from 08/30/21. 5. Hematomas in the rectus abdominis muscles, right worse than left, stable from 08/30/21. 6. Splenic infarcts again seen. 08/31 I wanted to to transfer patient to a facility where patient can get angiogram and possible embolization if ongoing bleed but due to current COVID 19 pandemic there are no ICU beds available. I called M including [facility] and they did not have any ICU bed available in any of the 6 hospitals. I gave them patient information and they will call me if a bed opens up. Hospitalist provider called [facility] to see if they have any bed available General surgery was consulted but no surgical options at this time 09/01 I called [facility] and [facility] again and no beds available. Hospitals in [place] are also not accepting any transfers 09/02 patient remains on wait list at [facility] 09/05 I again confirmed today the patient is on wait list at [facility] and [facility] is still not accepting any transfers (2) Hemorrhagic shock: Code(s): R57.8 - Other shock Status: Acute Assessment and Plan: RESOLVED Secondary to blood loss and possibly sepsis Improved as patient is now off of vasopressors Monitor closely Patient has received significant amount of volume and is overall volume overloaded. Hold further IV fluids and only administer blood products as needed (3) Sepsis: Code(s): A41.9 - Sepsis, unspecified organism Status: Acute Assessment and Plan: RESOLVED Urine and blood cultures have been negative Sputum culture grew yeast which is likely a colonizer Femoral central venous catheter was removed on 09/05 She is afebrile and her WBCs improving Continue vancomycin and imipenem for 7 days which will complete on 09/14 (4) Pulmonary embolism: Qualifiers: Pulmonary embolism type: unspecified Chronicity: acute Acute cor pulmonale presence: without acute cor pulmonale Qualified Code(s): I26.99 - Other pulmonary embolism without acute cor pulmonale Code(s): I26.99 - Other pulmonary embolism without acute cor pulmonale Status: Acute Ass
--- NOTE | 2021-09-16 12:38 | PM.PNNEP ---
Progress Note: A&P Assessment and Plan (1) JERRY (acute kidney injury): Code(s): N17.9 - Acute kidney failure, unspecified Status: Acute Assessment and Plan: due to ATN from: hemorrhagic shock contrast exposure obstruction evaluation to date: renal ultrasound with evidence of obstruction - s/p nephrostomy tube placement CPK mildly elevated (but not enough to affect kidney function) urine electrolytes non-prerenal creatinine and BUN slowly rising without dialytic support making lots of urine even without diuretic therapy hold dialysis for now follow trend of repeat labs and UOP (2) Bilateral hydronephrosis: Code(s): N13.30 - Unspecified hydronephrosis Status: Acute Assessment and Plan: as noted by renal ultrasound CT scan (09/02/20) with moderate bilateral hydronephrosis and hydroureter secondary to mass effect from the pelvic hematoma, worsened from 08/30/21 s/[address]-guided nephrostomy tube placement on 09/02/20 management per Urology (3) Anemia associated with acute blood loss: Code(s): D62 - Acute posthemorrhagic anemia Status: Acute Assessment and Plan: as noted by recent CT scan: large hematoma in right pelvis extending into the peritoneum with two foci of active extravasation of contrast; hematomas in the rectus abdominis muscles, right worse than left hemoglobin relatively stable (4) Hemorrhagic shock: Code(s): R57.8 - Other shock Status: Acute Assessment and Plan: resolved off pressors (5) Acute respiratory failure with hypoxia: Code(s): J96.01 - Acute respiratory failure with hypoxia Status: Acute Assessment and Plan: resolved - extubated due to cardiac arrest, COVID pneumonia, and pulmonary embolism (6) Pneumonia due to COVID-19 virus: Code(s): U07.1 - COVID-19; J12.82 - Pneumonia due to coronavirus disease 2019 Status: Acute Assessment and Plan: positive by recent testing on steroids (more so for shock than COVID at this time) s/p convalscent plasma on 08/22/21 s/p remdesivir but stopped due to elevated LFTs and renal dysfunction (7) Pulmonary embolism: Qualifiers: Pulmonary embolism type: unspecified Chronicity: acute Acute cor pulmonale presence: without acute cor pulmonale Qualified Code(s): I26.99 - Other pulmonary embolism without acute cor pulmonale Code(s): I26.99 - Other pulmonary embolism without acute cor pulmonale Status: Acute Assessment and Plan: as diagnosed by CT angiogram of chest off all anticoagulation due to #3 and #4 Will continue to follow. Subjective Date/time seen: 09/16/21 12:38 Transferred out of ICU yesterday; remains stable from respiratory and hemodynamic perspective; continues to make good urine output at this time; mentation seems stable if not improving; no other issues/events overnight or earlier this morning. Exam Narrative: General: WD/WN female in NAD Heart: normal S1 and S2; no rub Lungs: coarse breath sounds Abdomen: soft, nontender, nondistended; RLQ bruising noted Extremities: 1+ edema and no cyanosis Skin: warm and intact Objective Data Vital Signs Vital Signs: Vital Signs Temp Pulse Resp BP Pulse Ox 09/16/21 12:00 112 H 94 09/16/21 10:30 94 09/16/21 10:00 102 H 09/16/21 09:59 100 09/16/21 08:41 36.6 C 101 H 20 126/79 100 09/16/21 08:00 111 H 100 09/16/21 06:00 97 09/16/21 04:15 37.1 C 98 25 H 134/76 100 09/16/21 04:00 98 100 09/16/21 02:00 105 H 09/16/21 00:15 37.1 C 95 26 H 123/76 100 09/16/21 00:00 115 H 100 09/15/21 23:30 89 99 09/15/21 22:00 104 H 09/15/21 20:35 37.0 C 108 H 25 H 135/80 97 09/15/21 20:00 109 H 97 Intake/Output Intake/Output: Intake & Output 09/13/21 09/14/21 09/15/21 09/16/21 23:59 23:59 23:59 23:59 Intake
--- NOTE | 2021-09-16 12:38 | P.PNNP_ITS ---
Progress Note: A&P Assessment and Plan (1) JERRY (acute kidney injury): Code(s): N17.9 - Acute kidney failure, unspecified Status: Acute Assessment and Plan: * due to ATN from: * hemorrhagic shock * contrast exposure * obstruction * evaluation to date: * renal ultrasound with evidence of obstruction - s/p nephrostomy tube placement * CPK mildly elevated (but not enough to affect kidney function) * urine electrolytes non-prerenal * creatinine and BUN slowly rising without dialytic support * making lots of urine even without diuretic therapy * hold dialysis for now * follow trend of repeat labs and UOP (2) Bilateral hydronephrosis: Code(s): N13.30 - Unspecified hydronephrosis Status: Acute Assessment and Plan: * as noted by renal ultrasound * CT scan (09/02/20) with moderate bilateral hydronephrosis and hydroureter secondary to mass effect from the pelvic hematoma, worsened from 08/30/21 * s/p bilateral CT-guided nephrostomy tube placement on 09/02/20 * management per Urology (3) Anemia associated with acute blood loss: Code(s): D62 - Acute posthemorrhagic anemia Status: Acute Assessment and Plan: * as noted by recent CT scan: * large hematoma in right pelvis extending into the peritoneum with two foci of active extravasation of contrast; hematomas in the rectus abdominis muscles, right worse than left * hemoglobin relatively stable (4) Hemorrhagic shock: Code(s): R57.8 - Other shock Status: Acute Assessment and Plan: * resolved * off pressors (5) Acute respiratory failure with hypoxia: Code(s): J96.01 - Acute respiratory failure with hypoxia Status: Acute Assessment and Plan: * resolved - extubated * due to cardiac arrest, COVID pneumonia, and pulmonary embolism (6) Pneumonia due to COVID-19 virus: Code(s): U07.1 - COVID-19; J12.82 - Pneumonia due to coronavirus disease 2019 Status: Acute Assessment and Plan: * positive by recent testing * on steroids (more so for shock than COVID at this time) * s/p convalscent plasma on 08/22/21 * s/p remdesivir but stopped due to elevated LFTs and renal dysfunction (7) Pulmonary embolism: Qualifiers: Pulmonary embolism type: unspecified Chronicity: acute Acute cor pulmonale presence: without acute cor pulmonale Qualified Code(s): I26.99 - Other pulmonary embolism without acute cor pulmonale Code(s): I26.99 - Other pulmonary embolism without acute cor pulmonale Status: Acute Assessment and Plan: * as diagnosed by CT angiogram of chest * off all anticoagulation due to #3 and #4 Will continue to follow. Subjective Date/time seen: 09/16/21 12:38 Transferred out of ICU yesterday; remains stable from respiratory and hemodynamic perspective; continues to make good urine output at this time; mentation seems stable if not improving; no other issues/events overnight or earlier this morning. Exam Narrative: General: WD/WN female in NAD Heart: normal S1 and S2; no rub Lungs: coarse breath sounds Abdomen: soft, nontender, nondistended; RLQ bruising noted Extremities: 1+ edema and no cyanosis Skin: warm and intact Objective Data Vital Signs Vital Signs: Vital Signs Temp Pulse Resp BP Pulse Ox 09/16/21 12:00 112 H 94 09/16/21 10:30 94
[2021-09-16 13:04] LABS: Glucose Point of Care 72 mg/dl (65-105)
[2021-09-16] MEDS: ALBUTEROL SULFATE (*SP) INHALER 1 PUFF INHALATION (13:58)
[2021-09-16 17:02] LABS: Glucose Point of Care 78 mg/dl (65-105)
[2021-09-16] MEDS: CENTRAL LINE FLUSH 10 ML IV PUSH (17:15)
[2021-09-16 21:27] LABS: Glucose Point of Care 77 mg/dl (65-105)
[2021-09-17] VITALS (14 sets, daily range): BP systolic 140–157; BP diastolic 73–88; PULSE 91–118; RESP 18–23; TEMP 36.6–37.2; O2SAT 94–100
[2021-09-17 04:34] LABS: Glucose Point of Care 80 mg/dl (65-105)
--- NOTE | 2021-09-17 05:28 | PC.NURSE ---
I spoke with Khurram Zuleta (). Updated him on his 's condition. He is confused as to if we are still thinking of transferring the patient to an outside hospital due to the retroperitoneal hematoma. I advised him I will pass this along to the day shift to verify this with the primary MD. Khurram prefers the patient stays at [facility] for further care unless it is medically necessary for transfer.
[2021-09-17 08:43] LABS: Glucose Point of Care 81 mg/dl (65-105)
--- NOTE | 2021-09-17 09:34 | PM.IMPN ---
Progress Note: A&P Assessment and Plan (1) Anemia associated with acute blood loss: Code(s): D62 - Acute posthemorrhagic anemia Status: Acute Assessment and Plan: RESOLVED Patient initially received 4 units of PRBC, 2 units of FFP, 1 unit of cryo. 08/31 2 units of PRBC and 4 units of FFP were given. Patient was also given vitamin K. Hospital does not have andexanet and Kcentra not given due to high risk of new or worsening of her current thrombosis as patient already has PE and and also has COVID-19. Also her last dose of Eliquis was more than 24 hours ago 09/01 2 units of PRBC, DDAVP, tranexamic acid was given 09/02 1 unit of PRBC given 09/03 1 unit of PRBC given overnight 09/05 1 unit PRBC transfused Her hemoglobin has been stable over last few days. Continue monitoring and transfuse as needed Continue to Monitor coags which are in acceptable range at this time At this point the goal is to maintain coags in acceptable range, transfuse blood products as needed to maintain adequate hemoglobin level. It seems the bleeding has stopped at this time. She will need eventually need definitive treatment whether vascular and/or surgical for that large hematoma. CT 08/30 IMPRESSION: 1. Large hematoma in right pelvis extending into the peritoneum with two foci of active extravasation of contrast. 2. Hematomas in the rectus abdominis muscles, right worse than left. 3. Splenic infarcts. Small volume of perisplenic ascites. 4. Diffuse lung disease, consistent with COVID-[address] abdomen pelvis 09/02 3. Large volume of extraperitoneal hematoma in the pelvis centered to the right of midline, mildly worsened from 08/30/21. Moderate volume of hemoperitoneum, worsened from 08/30/21. 4. Moderate bilateral hydronephrosis and hydroureter secondary to mass effect from the pelvic hematoma, worsened from 08/30/21. 5. Hematomas in the rectus abdominis muscles, right worse than left, stable from 08/30/21. 6. Splenic infarcts again seen. 08/31 I wanted to to transfer patient to a facility where patient can get angiogram and possible embolization if ongoing bleed but due to current COVID 19 pandemic there are no ICU beds available. I called M including [facility] and they did not have any ICU bed available in any of the 6 hospitals. I gave them patient information and they will call me if a bed opens up. Hospitalist provider called [facility] to see if they have any bed available General surgery was consulted but no surgical options at this time 09/01 I called [facility] and [facility] again and no beds available. Hospitals in [place] are also not accepting any transfers 09/02 patient remains on wait list at [facility] 09/05 I again confirmed today the patient is on wait list at [facility] and [facility] is still not accepting any transfers (2) Hemorrhagic shock: Code(s): R57.8 - Other shock Status: Acute Assessment and Plan: RESOLVED Secondary to blood loss and possibly sepsis Improved as patient is now off of vasopressors Monitor closely Patient has received significant amount of volume and is overall volume overloaded. Hold further IV fluids and only administer blood products as needed (3) Sepsis: Code(s): A41.9 - Sepsis, unspecified organism Status: Acute Assessment and Plan: RESOLVED Urine and blood cultures have been negative Sputum culture grew yeast which is likely a colonizer Femoral central venous catheter was removed on 09/05 She is afebrile and her WBCs improving Completed vancomycin and imipenem for 7 days on 09/14 (4) Pulmonary embolism: Qualifiers: Pulmonary embolism type: unspecified Chronicity: acute Acute cor pulmonale presence: without acute cor pulmonale Qualified Code(s): I26.99 - Other pulmonary embolism without acute cor pulmonale Code(s): I26.99 - Other pulmonary embolism without acute cor pulmonale Status: Acute Assessment and Plan:
[2021-09-17 12:19] LABS: Glucose Point of Care 84 mg/dl (65-105)
--- NOTE | 2021-09-17 13:05 | P.PNNP_ITS ---
Progress Note: A&P Assessment and Plan (1) JERRY (acute kidney injury): Code(s): N17.9 - Acute kidney failure, unspecified Status: Acute Assessment and Plan: * due to ATN from: * hemorrhagic shock * contrast exposure * obstruction * evaluation to date: * renal ultrasound with evidence of obstruction - s/p nephrostomy tube placement * CPK mildly elevated (but not enough to affect kidney function) * urine electrolytes non-prerenal * creatinine and BUN slowly rising without dialytic support - may need dialysis tomorrow just for clearance * making lots of urine even without diuretic therapy * continue to hold dialysis for now - reassess tomorrow * follow trend of repeat labs and UOP (2) Bilateral hydronephrosis: Code(s): N13.30 - Unspecified hydronephrosis Status: Acute Assessment and Plan: * as noted by renal ultrasound * CT scan (09/02/20) with moderate bilateral hydronephrosis and hydroureter secondary to mass effect from the pelvic hematoma, worsened from 08/30/21 * s/p bilateral CT-guided nephrostomy tube placement on 09/02/20 * management per Urology (3) Anemia associated with acute blood loss: Code(s): D62 - Acute posthemorrhagic anemia Status: Acute Assessment and Plan: * as noted by recent CT scan: * large hematoma in right pelvis extending into the peritoneum with two foci of active extravasation of contrast; hematomas in the rectus abdominis muscles, right worse than left * hemoglobin relatively stable (4) Hemorrhagic shock: Code(s): R57.8 - Other shock Status: Acute Assessment and Plan: * resolved * off pressors (5) Acute respiratory failure with hypoxia: Code(s): J96.01 - Acute respiratory failure with hypoxia Status: Acute Assessment and Plan: * resolved - extubated * due to cardiac arrest, COVID pneumonia, and pulmonary embolism (6) Pneumonia due to COVID-19 virus: Code(s): U07.1 - COVID-19; J12.82 - Pneumonia due to coronavirus disease 2019 Status: Acute Assessment and Plan: * positive by recent testing * on steroids (more so for shock than COVID at this time) * s/p convalscent plasma on 08/22/21 * s/p remdesivir but stopped due to elevated LFTs and renal dysfunction (7) Pulmonary embolism: Qualifiers: Pulmonary embolism type: unspecified Chronicity: acute Acute cor pulmonale presence: without acute cor pulmonale Qualified Code(s): I26.99 - Other pulmonary embolism without acute cor pulmonale Code(s): I26.99 - Other pulmonary embolism without acute cor pulmonale Status: Acute Assessment and Plan: * as diagnosed by CT angiogram of chest * off all anticoagulation due to #3 and #4 Will continue to follow. Subjective Date/time seen: 09/17/21 13:05 No apparent issues or complaint voiced at the time of my visit; major complaint is that of fatigue and weakness; continues to make excellent urine output at this time; no apparent distress to report; no other events overnight or earlier this AM. Exam Narrative: General: WD/WN female in NAD Heart: normal S1 and S2; no rub Lungs: coarse breath sounds Abdomen: soft, nontender, nondistended; RLQ bruising noted Extremities: 1+ edema and no cyanosis Skin: no rash Objective Data Vital Signs Vital Signs: Vital Signs Temp Pulse Resp BP Pulse Ox
--- NOTE | 2021-09-17 13:05 | PM.PNNEP ---
Progress Note: A&P Assessment and Plan (1) JERRY (acute kidney injury): Code(s): N17.9 - Acute kidney failure, unspecified Status: Acute Assessment and Plan: due to ATN from: hemorrhagic shock contrast exposure obstruction evaluation to date: renal ultrasound with evidence of obstruction - s/p nephrostomy tube placement CPK mildly elevated (but not enough to affect kidney function) urine electrolytes non-prerenal creatinine and BUN slowly rising without dialytic support - may need dialysis tomorrow just for clearance making lots of urine even without diuretic therapy continue to hold dialysis for now - reassess tomorrow follow trend of repeat labs and UOP (2) Bilateral hydronephrosis: Code(s): N13.30 - Unspecified hydronephrosis Status: Acute Assessment and Plan: as noted by renal ultrasound CT scan (09/02/20) with moderate bilateral hydronephrosis and hydroureter secondary to mass effect from the pelvic hematoma, worsened from 08/30/[address] s[address]-guided nephrostomy tube placement on 09/02/20 management per Urology (3) Anemia associated with acute blood loss: Code(s): D62 - Acute posthemorrhagic anemia Status: Acute Assessment and Plan: as noted by recent CT scan: large hematoma in right pelvis extending into the peritoneum with two foci of active extravasation of contrast; hematomas in the rectus abdominis muscles, right worse than left hemoglobin relatively stable (4) Hemorrhagic shock: Code(s): R57.8 - Other shock Status: Acute Assessment and Plan: resolved off pressors (5) Acute respiratory failure with hypoxia: Code(s): J96.01 - Acute respiratory failure with hypoxia Status: Acute Assessment and Plan: resolved - extubated due to cardiac arrest, COVID pneumonia, and pulmonary embolism (6) Pneumonia due to COVID-19 virus: Code(s): U07.1 - COVID-19; J12.82 - Pneumonia due to coronavirus disease 2019 Status: Acute Assessment and Plan: positive by recent testing on steroids (more so for shock than COVID at this time) s/p convalscent plasma on 08/22/21 s/p remdesivir but stopped due to elevated LFTs and renal dysfunction (7) Pulmonary embolism: Qualifiers: Pulmonary embolism type: unspecified Chronicity: acute Acute cor pulmonale presence: without acute cor pulmonale Qualified Code(s): I26.99 - Other pulmonary embolism without acute cor pulmonale Code(s): I26.99 - Other pulmonary embolism without acute cor pulmonale Status: Acute Assessment and Plan: as diagnosed by CT angiogram of chest off all anticoagulation due to #3 and #4 Will continue to follow. Subjective Date/time seen: 09/17/21 13:05 No apparent issues or complaint voiced at the time of my visit; major complaint is that of fatigue and weakness; continues to make excellent urine output at this time; no apparent distress to report; no other events overnight or earlier this AM. Exam Narrative: General: WD/WN female in NAD Heart: normal S1 and S2; no rub Lungs: coarse breath sounds Abdomen: soft, nontender, nondistended; RLQ bruising noted Extremities: 1+ edema and no cyanosis Skin: no rash Objective Data Vital Signs Vital Signs: Vital Signs Temp Pulse Resp BP Pulse Ox 09/17/21 12:00 36.8 C 105 H 18 140/77 100 09/17/21 10:00 107 H 09/17/21 08:00 36.8 C 112 H 18 149/73 H 100 09/17/21 06:00 101 H 09/17/21 04:05 37.2 C 109 H 23 H 157/75 H 96 09/17/21 04:00 107 H 96 09/17/21 02:00 115 H 09/17/21 00:20 36.9 C 108 H 23 H 152/88 H 94 09/17/21 00:00 118 H 94 09/16/21 22:00 117 H 09/16/21 20:40 37.1 C 96 24 H 147/75 H 94 09/16/21 20:00 116 H 94 Intake/Output Intake/Output: Intake & Output 09/14/21 09/15/21 09/16/21 09/17/21 23:59 23:59 23:59 23:59 Intake Total
[2021-09-17 13:27] LABS: Albumin Level 3.8 g/dL (3.5-5.1); Anion Gap 11 mmol/L (8-16); Blood Urea Nitrogen 92 mg/dL (7-17); Calcium 9.5 mg/dL (8.4-10.2); Carbon Dioxide 26 mmol/L (22-30); Chloride 108 mmol/L (98-107); Estimated CRCL calculation 15 ml/min; Estimated Glomerular Filt Rate 9; Glucose 84 mg/dL (65-110); Phosphorus 6.1 mg/dL (2.5-4.5); Potassium 3.3 mmol/L (3.4-5.0); Sodium 145 mmol/L (137-145)
[2021-09-17 17:14] LABS: Glucose Point of Care 77 mg/dl (65-105)
[2021-09-17] MEDS: CENTRAL LINE FLUSH 10 ML IV PUSH (19:26)
[2021-09-17 21:45] LABS: Glucose Point of Care 77 mg/dl (65-105)
[2021-09-18] VITALS (21 sets, daily range): BP systolic 117–163; BP diastolic 67–96; PULSE 89–121; RESP 18–20; TEMP 36.3–38.2; O2SAT 95–100; BMI 36.3
[2021-09-18 00:38] LABS: Glucose Point of Care 81 mg/dl (65-105)
[2021-09-18 03:43] LABS: Glucose Point of Care 84 mg/dl (65-105)
[2021-09-18 04:58] LABS: Albumin Level 3.7 g/dL (3.5-5.1); Anion Gap 12 mmol/L (8-16); Blood Urea Nitrogen 95 mg/dL (7-17); Calcium 9.3 mg/dL (8.4-10.2); Carbon Dioxide 27 mmol/L (22-30); Chloride 110 mmol/L (98-107); Estimated CRCL calculation 15 ml/min; Estimated Glomerular Filt Rate 9; Glucose 89 mg/dL (65-110); Potassium 3.2 mmol/L (3.4-5.0); Sodium 149 mmol/L (137-145)
--- NOTE | 2021-09-18 07:00 | PM.IMPN ---
Progress Note: A&P Assessment and Plan (1) JERRY (acute kidney injury): Code(s): N17.9 - Acute kidney failure, unspecified Status: Acute Assessment and Plan: Likely secondary to shock, contrast for CT and possible obstruction Renal US IMPRESSION: 1. Mild bilateral hydroureteronephrosis. 2. Large pelvic hematoma. 3. Small amount of perihepatic ascites. Consulted urology for hydroureteronephrosis Repeat CT abdomen pelvis 09/02 showed Moderate bilateral hydronephrosis and hydroureter secondary to mass effect from the pelvic hematoma, worsened from 08/30/21. I discussed case with urologist and she recommended nephrostomy insert of stents due to alteration of patient's anatomy from large hematoma. 09/[address]-guided nephrostomy tube placement. Urine output through nephrostomy tubes has continued to improve 09/05 I discussed case with meat puller Dr. Vences and we will initiate hemodialysis. Temporary dialysis catheter was placed and patient was started on hemodialysis 09/06 patient is getting another hemodialysis session today 09/08 I discussed case with Dr. Vences today and requested the patient be dialyzed for fluid removal but due to staffing shortage she will not be dialyzed until tomorrow 09/09 patient was dialyzed again 09/11 patient is being dialyzed again today and has been placed on dialysis at this time 09/12 dialysis and 1200 mL was removed Nephrology has started patient on Bumex and plan is to monitor renal function and re-evaluate if patient needs another session of dialysis. Considerable improvement in nephrostomy tube output, she may not need another session Monitor urine output electrolytes and creatinine Creatinine continues to increase from 4.6 yesterday to 5 today. However, Electrolytes are within acceptable limits. Urinary output has picked up to 1.75 L overnight. There is no indication for renal replacement therapy. Will continue to hold off dialysis. For hypokalemia with a K of 3.3, give orange juice. 09/18/21 Dialysis today BUN/Cr 95/4.90 Nephrology consulted Trend electrolytes (2) Abnormal LFTs: Code(s): R79.89 - Other specified abnormal findings of blood chemistry Status: Acute Assessment and Plan: Seems to be resolved at this time Likely shock liver Monitor levels at this time which are improving Hold statin (3) Acute respiratory failure with hypoxia: Code(s): J96.01 - Acute respiratory failure with hypoxia Status: Acute Assessment and Plan: Acute Respiratory failure secondary to cardiac arrest, COVID-19 pneumonia, pulmonary emboli Her CT scan shows bilateral infiltrates which are secondary to her underlying COVID-19 pneumonia but also has a component of pulmonary edema as patient is volume overloaded Aspiration is also possibility at the time of her cardiac arrest Patient is extubated on 09/14/2021 PCXR reviewed and shows persistent bilateral infiltrates CT abdomen pelvis showed infiltrates on bases of lungs bilaterally On room air sating 100% Seems to be resolved at this time (4) Pneumonia due to 2019-nCoV: Code(s): U07.1 - COVID-19; J12.82 - Pneumonia due to coronavirus disease 2018 Status: Acute Assessment and Plan: Seems to be resolved at this time SARS-CoV-2 PCR positive Patient is in Airborne, Droplet and Contact Isolation Patient was on dexamethasone which has been changed to stress dose hydrocortisone at this time due to shock Convalscent plasma therapy for COVID-19 administered on 08/22 Patient received 4 doses of remdesivir and now due to high ALT and decreased renal function remdesivir has been discontinued (5) Encephalopathy: Code(s): G93.40 - Encephalopathy, unspecified Status: Acute Assessment and Plan: RESOLVED Likely toxic metabolic encephalopathy but patient also had a brief cardiac arrest and there is always a possibility of anoxic brain injury Head CT was don
--- NOTE | 2021-09-18 07:03 | P.PNNP_ITS ---
Progress Note: A&P Assessment and Plan (1) JERRY (acute kidney injury): Code(s): N17.9 - Acute kidney failure, unspecified Status: Acute Assessment and Plan: * due to ATN from: * hemorrhagic shock * contrast exposure * obstruction * evaluation to date: * renal ultrasound with evidence of obstruction - s/p nephrostomy tube placement * CPK mildly elevated (but not enough to affect kidney function) * urine electrolytes non-prerenal * creatinine the same and the BUN is same as well. * Very slow recovery from ATN * making lots of urine even without diuretic therapy * continue to hold dialysis for now -no nausea. Volume status is not indicate fluid removal. * Will check another BUN and creatinine tomorrow. (2) Bilateral hydronephrosis: Code(s): N13.30 - Unspecified hydronephrosis Status: Acute Assessment and Plan: * as noted by renal ultrasound * CT scan (09/02/20) with moderate bilateral hydronephrosis and hydroureter secondary to mass effect from the pelvic hematoma, worsened from 08/30/21 * s/p bilateral CT-guided nephrostomy tube placement on 09/02/20 * management per Urology (3) Anemia associated with acute blood loss: Code(s): D62 - Acute posthemorrhagic anemia Status: Acute Assessment and Plan: * as noted by recent CT scan: * large hematoma in right pelvis extending into the peritoneum with two foci of active extravasation of contrast; hematomas in the rectus abdominis muscles, right worse than left * hemoglobin up to 9.4 on the . It bounces up and down between 8.5 and 9.5. * Will check another CBC tomorrow (4) Hemorrhagic shock: Code(s): R57.8 - Other shock Status: Acute Assessment and Plan: * resolved * off pressors (5) Acute respiratory failure with hypoxia: Code(s): J96.01 - Acute respiratory failure with hypoxia Status: Acute Assessment and Plan: * resolved - extubated * due to cardiac arrest, COVID pneumonia, and pulmonary embolism (6) Pneumonia due to COVID-19 virus: Code(s): U07.1 - COVID-19; J12.82 - Pneumonia due to coronavirus disease 2018 Status: Acute Assessment and Plan: * positive by recent testing * on steroids (more so for shock than COVID at this time) * s/p convalscent plasma on 08/22/21 * s/p remdesivir but stopped due to elevated LFTs and renal dysfunction (7) Pulmonary embolism: Qualifiers: Pulmonary embolism type: unspecified Chronicity: acute Acute cor pulmonale presence: without acute cor pulmonale Qualified Code(s): I26.99 - Other pulmonary embolism without acute cor pulmonale Code(s): I26.99 - Other pulmonary embolism without acute cor pulmonale Status: Acute Assessment and Plan: * as diagnosed by CT angiogram of chest * off all anticoagulation due to #3 and #4 Will continue to follow. Subjective Date/time seen: 09/18/21 07:03 Interval history: Patient is awake but weak. No chest pain. No shortness of breath. No belly problems. Exam Narrative: General: WD/WN female in NAD Heart: normal S1 and S2; no rub Lungs: coarse breath sounds Abdomen: soft, nontender, nondistended; RLQ bruising noted Extremities: 1+ edema in the presacral area and no cyanosis Skin: no rash or subQ nodules Objective Data Vital Signs Vital Signs: Vital Signs - 24 hr 09/17/21 08:00 09/17/21 10:00 09/17/21 1
--- NOTE | 2021-09-18 07:03 | PM.PNNEP ---
Progress Note: A&P Assessment and Plan (1) JERRY (acute kidney injury): Code(s): N17.9 - Acute kidney failure, unspecified Status: Acute Assessment and Plan: due to ATN from: hemorrhagic shock contrast exposure obstruction evaluation to date: renal ultrasound with evidence of obstruction - s/p nephrostomy tube placement CPK mildly elevated (but not enough to affect kidney function) urine electrolytes non-prerenal creatinine the same and the BUN is same as well. Very slow recovery from ATN making lots of urine even without diuretic therapy continue to hold dialysis for now -no nausea. Volume status is not indicate fluid removal. Will check another BUN and creatinine tomorrow. (2) Bilateral hydronephrosis: Code(s): N13.30 - Unspecified hydronephrosis Status: Acute Assessment and Plan: as noted by renal ultrasound CT scan (09/02/20) with moderate bilateral hydronephrosis and hydroureter secondary to mass effect from the pelvic hematoma, worsened from 08/30/[address]-guided nephrostomy tube placement on 09/02/20 management per Urology (3) Anemia associated with acute blood loss: Code(s): D62 - Acute posthemorrhagic anemia Status: Acute Assessment and Plan: as noted by recent CT scan: large hematoma in right pelvis extending into the peritoneum with two foci of active extravasation of contrast; hematomas in the rectus abdominis muscles, right worse than left hemoglobin up to 9.4 on the . It bounces up and down between 8.5 and 9.5. Will check another CBC tomorrow (4) Hemorrhagic shock: Code(s): R57.8 - Other shock Status: Acute Assessment and Plan: resolved off pressors (5) Acute respiratory failure with hypoxia: Code(s): J96.01 - Acute respiratory failure with hypoxia Status: Acute Assessment and Plan: resolved - extubated due to cardiac arrest, COVID pneumonia, and pulmonary embolism (6) Pneumonia due to COVID-19 virus: Code(s): U07.1 - COVID-19; J12.82 - Pneumonia due to coronavirus disease 2019 Status: Acute Assessment and Plan: positive by recent testing on steroids (more so for shock than COVID at this time) s/p convalscent plasma on 08/22/21 s/p remdesivir but stopped due to elevated LFTs and renal dysfunction (7) Pulmonary embolism: Qualifiers: Pulmonary embolism type: unspecified Chronicity: acute Acute cor pulmonale presence: without acute cor pulmonale Qualified Code(s): I26.99 - Other pulmonary embolism without acute cor pulmonale Code(s): I26.99 - Other pulmonary embolism without acute cor pulmonale Status: Acute Assessment and Plan: as diagnosed by CT angiogram of chest off all anticoagulation due to #3 and #4 Will continue to follow. Subjective Date/time seen: 09/18/21 07:03 Interval history: Patient is awake but weak. No chest pain. No shortness of breath. No belly problems. Exam Narrative: General: WD/WN female in NAD Heart: normal S1 and S2; no rub Lungs: coarse breath sounds Abdomen: soft, nontender, nondistended; RLQ bruising noted Extremities: 1+ edema in the presacral area and no cyanosis Skin: no rash or subQ nodules Objective Data Vital Signs Vital Signs: Vital Signs - 24 hr 09/17/21 08:00 09/17/21 10:00 09/17/21 12:00 Temperature 36.8 C 36.8 C Pulse Rate 112 H 107 H 105 H Respiratory Rate 18 18 Blood Pressure 149/73 H 140/77 Pulse Oximetry 100 100 09/17/21 14:00 09/17/21 16:00 09/17/21 18:00 Temperature 36.6 C Pulse Rate 111 H 96 96 Respiratory Rate 18 Blood Pressure 149/78 H Pulse Oximetry 94 09/17/21 20:00 09/17/21 22:00 09/18/21 00:00 Temperature 36.6 C 36.7 C Pulse Rate 103 H 108 H 99 Respiratory Rate 22 H 20 Blood Pressure 141/76 H 147/76 H Pulse Oximetry 97 97 09/18/21 02:00 09/18/21 03:24 09/18/21 04:00 Te
[2021-09-18 08:18] LABS: Glucose Point of Care 77 mg/dl (65-105)
[2021-09-18] MEDS: DEXTROSE 10% 1,000 ML 30 ML IV CONT (10:25)
--- NOTE | 2021-09-18 13:15 | PCNFU ---
Nutrition Follow-Up Complete: Inadequate Oral Intake as related to mechanical vent as evidenced by NPO. Goal: Meet estimanted nutritional needs Pt is progressing towards goal Pt current nutrition is Nepro running at 20mL/hr over 22 hours and dietary supplement Last recorded weight is 102 kg. Bowel Motility: FMS Labs Reviewed: Na 149, K 3.2, BUN 95, Cr 4.9, PO4 6.0 Meds Noted: No meds noted at this time. Skin: perianal skin tear, left chest pressure ulcer - deep tissue Additional Notes: Pt downgraded from ICU to IMU. Pt remains on room air. Pt started on tube feeding diet due to recommendations from speech. Pt is on a tube feeding diet of Nepro running at 20mL/hr over 22 hours providing 792kcal, 36g of protein, and 320mL of water. Recommend increasing feeding rate by 10mL every Q 6 hours until a goal rate of 45mL/hr is met. Goal rate of Nepro running at 45mL/hr over 22 hours will provide 1782kcal, 80g of protein, and 719mL of water, meeting 102% of kcal needs and 100% of protein needs. Pt is on a dietary supplement of Banatrol Plus Q 6 hours for stool bulking. Agree with diet order at this time. Will continue to follow. Will monitor every Saturday and Saturday.
--- NOTE | 2021-09-18 13:39 | PCPTNOTE ---
The patient treatment was not able to be completed on 09/18/2021 due to patient out of room in dialysis. Will plan to continue treatment per plan of care.
[2021-09-18 18:01] LABS: Glucose Point of Care 104 mg/dl (65-105)
[2021-09-18] MEDS: CENTRAL LINE FLUSH 10 ML IV PUSH (18:54)
[2021-09-18 20:42] LABS: Glucose Point of Care 136 mg/dl (65-105)
[2021-09-18 23:16] LABS: Glucose Point of Care 125 mg/dl (65-105)
[2021-09-19] VITALS (12 sets, daily range): BP systolic 125–151; BP diastolic 73–95; PULSE 110–128; RESP 18–28; TEMP 36.5–37.6; O2SAT 94–98
[2021-09-19 05:49] LABS: Basophils Absolute Auto 0.1 K/mm3 (0.0-0.1); Basophils Percent Auto 1.1 % (0.2-1.2); Eosinophils Absolute Auto 0.6 K/mm3 (0-0.3); Eosinophils Percent Auto 4.6 % (0-4.4); Hematocrit 32.8 % (37.0-47.0); Immature Granulocyte Absolute 0.29 K/mm3 (0.00-0.031); Immature Granulocyte Percent A 2.2 % (0-0.5); Lymphocytes Absolute Auto 2.04 K/mm3 (0.9-3.2); Lymphocytes Percent Auto 15.6 % (18.3-44.2); Mean Corpuscular HGB Conc 30.5 g/dl (32-36); Mean Corpuscular Hemoglobin 29.7 pg (26-34); Mean Corpuscular Volume 97.3 fl (80-100); Mean Platelet Volume 10.6 fl (7.4-10.4); Monocytes Absolute Auto 1.2 K/mm3 (0.1-0.6); Monocytes Percent Auto 9.5 % (2.6-8.5); Neutrophils Absolute Auto 8.8 K/mm3 (1.3-6.7); Nucleated Red Blood Cells Perc 0.2 % (0.0-0.2); Platelet Count Result 461 k/mm3 (150-375); Red Blood Count 3.37 M/mm3 (4.2-5.4); Red Cell Distribution Width 16.3 % (11.5-14.5); White Blood Count 13.1 K/mm3 (4.5-10.0)
[2021-09-19 06:02] LABS: Alanine Aminotransferase 30 U/L (4-35); Alkaline Phosphatase 144 U/L (38-126); Anion Gap 12 mmol/L (8-16); Aspartate Amino Transferase 45 U/L (14-36); Bilirubin,Total 1.3 mg/dL (0.2-1.3); Blood Urea Nitrogen 53 mg/dL (7-17); Calcium 9.1 mg/dL (8.4-10.2); Carbon Dioxide 31 mmol/L (22-30); Chloride 100 mmol/L (98-107); Estimated CRCL calculation 24 ml/min; Estimated Glomerular Filt Rate 16; Glucose 144 mg/dL (65-110); Phosphorus 3.2 mg/dL (2.5-4.5); Potassium 3.1 mmol/L (3.4-5.0); Sodium 143 mmol/L (137-145)
--- NOTE | 2021-09-19 06:53 | P.PNNP_ITS ---
Progress Note: A&P Assessment and Plan (1) JERRY (acute kidney injury): Code(s): N17.9 - Acute kidney failure, unspecified Status: Acute Assessment and Plan: * due to ATN from: * hemorrhagic shock * contrast exposure * obstruction * evaluation to date: * renal ultrasound with evidence of obstruction - s/p nephrostomy tube placement * CPK mildly elevated (but not enough to affect kidney function) * urine electrolytes non-prerenal * Because of dialysis staffing issues the patient was treated yesterday. * BUN and creatinine are better today. * Very slow recovery from ATN * Urine output was 1550 yesterday. * Will check her creatinine again tomorrow. Will dialyze tomorrow if needed (2) Bilateral hydronephrosis: Code(s): N13.30 - Unspecified hydronephrosis Status: Acute Assessment and Plan: * as noted by renal ultrasound * CT scan (09/02/20) with moderate bilateral hydronephrosis and hydroureter secondary to mass effect from the pelvic hematoma, worsened from 08/30/21 * s/p bilateral CT-guided nephrostomy tube placement on 09/02/20 * management per Urology (3) Anemia associated with acute blood loss: Code(s): D62 - Acute posthemorrhagic anemia Status: Acute Assessment and Plan: * as noted by recent CT scan: * large hematoma in right pelvis extending into the peritoneum with two foci of active extravasation of contrast; hematomas in the rectus abdominis muscles, right worse than left * hemoglobin now 10.0. * Gettting EPO 10,000 3 times a week (4) Hemorrhagic shock: Code(s): R57.8 - Other shock Status: Acute Assessment and Plan: * resolved * off pressors (5) Acute respiratory failure with hypoxia: Code(s): J96.01 - Acute respiratory failure with hypoxia Status: Acute Assessment and Plan: * resolved - extubated * due to cardiac arrest, COVID pneumonia, and pulmonary embolism (6) Pneumonia due to COVID-19 virus: Code(s): U07.1 - COVID-19; J12.82 - Pneumonia due to coronavirus disease 2019 Status: Acute Assessment and Plan: * positive by recent testing * on steroids (more so for shock than COVID at this time) * s/p convalscent plasma on 08/22/21 * s/p remdesivir but stopped due to elevated LFTs and renal dysfunction * Isolation has ?timed out ?. (7) Pulmonary embolism: Qualifiers: Pulmonary embolism type: unspecified Chronicity: acute Acute cor pulmonale presence: without acute cor pulmonale Qualified Code(s): I26.99 - Other pulmonary embolism without acute cor pulmonale Code(s): I26.99 - Other pulmonary embolism without acute cor pulmonale Status: Acute Assessment and Plan: * as diagnosed by CT angiogram of chest * off all anticoagulation due to #3 and #4 Will continue to follow. Subjective Date/time seen: 09/19/21 06:53 Interval history: Patient is awake. No chest pain. No shortness of breath. No belly problems. She failed her swallowing test so is now getting tube feedings per Dobbhoff tube. Exam Narrative: General: WD/WN female in NAD Heart: normal S1 and S2; no rub or gallop Lungs: coarse breath sounds Abdomen: soft, nontender, nondistended; RLQ bruising noted Extremities: 1+ edema in the presacral area and no cyanosis Skin: no rash Objective Data Vital Signs Vital Signs: Vital Signs - 24 hr 09/18/21 08:00
--- NOTE | 2021-09-19 06:53 | PM.PNNEP ---
Progress Note: A&P Assessment and Plan (1) JERRY (acute kidney injury): Code(s): N17.9 - Acute kidney failure, unspecified Status: Acute Assessment and Plan: due to ATN from: hemorrhagic shock contrast exposure obstruction evaluation to date: renal ultrasound with evidence of obstruction - s/p nephrostomy tube placement CPK mildly elevated (but not enough to affect kidney function) urine electrolytes non-prerenal Because of dialysis staffing issues the patient was treated yesterday. BUN and creatinine are better today. Very slow recovery from ATN Urine output was 1550 yesterday. Will check her creatinine again tomorrow. Will dialyze tomorrow if needed (2) Bilateral hydronephrosis: Code(s): N13.30 - Unspecified hydronephrosis Status: Acute Assessment and Plan: as noted by renal ultrasound CT scan (09/02/20) with moderate bilateral hydronephrosis and hydroureter secondary to mass effect from the pelvic hematoma, worsened from 08/30/[address]-guided nephrostomy tube placement on 09/02/20 management per Urology (3) Anemia associated with acute blood loss: Code(s): D62 - Acute posthemorrhagic anemia Status: Acute Assessment and Plan: as noted by recent CT scan: large hematoma in right pelvis extending into the peritoneum with two foci of active extravasation of contrast; hematomas in the rectus abdominis muscles, right worse than left hemoglobin now 10.0. Gettting EPO 10,000 3 times a week (4) Hemorrhagic shock: Code(s): R57.8 - Other shock Status: Acute Assessment and Plan: resolved off pressors (5) Acute respiratory failure with hypoxia: Code(s): J96.01 - Acute respiratory failure with hypoxia Status: Acute Assessment and Plan: resolved - extubated due to cardiac arrest, COVID pneumonia, and pulmonary embolism (6) Pneumonia due to COVID-19 virus: Code(s): U07.1 - COVID-19; J12.82 - Pneumonia due to coronavirus disease 2019 Status: Acute Assessment and Plan: positive by recent testing on steroids (more so for shock than COVID at this time) s/p convalscent plasma on 08/22/21 s/p remdesivir but stopped due to elevated LFTs and renal dysfunction Isolation has ?timed out ?. (7) Pulmonary embolism: Qualifiers: Pulmonary embolism type: unspecified Chronicity: acute Acute cor pulmonale presence: without acute cor pulmonale Qualified Code(s): I26.99 - Other pulmonary embolism without acute cor pulmonale Code(s): I26.99 - Other pulmonary embolism without acute cor pulmonale Status: Acute Assessment and Plan: as diagnosed by CT angiogram of chest off all anticoagulation due to #3 and #4 Will continue to follow. Subjective Date/time seen: 09/19/21 06:53 Interval history: Patient is awake. No chest pain. No shortness of breath. No belly problems. She failed her swallowing test so is now getting tube feedings per Dobbhoff tube. Exam Narrative: General: WD/WN female in NAD Heart: normal S1 and S2; no rub or gallop Lungs: coarse breath sounds Abdomen: soft, nontender, nondistended; RLQ bruising noted Extremities: 1+ edema in the presacral area and no cyanosis Skin: no rash Objective Data Vital Signs Vital Signs: Vital Signs - 24 hr 09/18/21 08:00 09/18/21 10:00 09/18/21 11:00 Temperature 36.9 C Pulse Rate 92 100 95 Respiratory Rate 18 Blood Pressure 161/79 H 161/94 H Pulse Oximetry 100 09/18/21 11:30 09/18/21 12:00 09/18/21 12:18 Temperature Pulse Rate 101 H 104 H 97 Respiratory Rate Blood Pressure 148/96 H 153/96 H Pulse Oximetry 100 09/18/21 13:00 09/18/21 13:30 09/18/21 13:55 Temperature 37.8 C H Pulse Rate 117 H 109 H 96 Respiratory Rate 20 Blood Pressure 117/73 142/79 H 163/89 H Pulse Oximetry 09/18/21 14:00 09/18/21 14:21 09/18/21 16:00
[2021-09-19 08:07] LABS: Glucose Point of Care 142 mg/dl (65-105)
--- NOTE | 2021-09-19 08:15 | PM.IMPN ---
Progress Note: A&P Assessment and Plan (1) JERRY (acute kidney injury): Code(s): N17.9 - Acute kidney failure, unspecified Status: Acute Assessment and Plan: Likely secondary to shock, contrast for CT and possible obstruction Renal US IMPRESSION: 1. Mild bilateral hydroureteronephrosis. 2. Large pelvic hematoma. 3. Small amount of perihepatic ascites. Consulted urology for hydroureteronephrosis Repeat CT abdomen pelvis 09/02 showed Moderate bilateral hydronephrosis and hydroureter secondary to mass effect from the pelvic hematoma, worsened from 08/30/21. I discussed case with urologist and she recommended nephrostomy insert of stents due to alteration of patient's anatomy from large hematoma. 09/[address]-guided nephrostomy tube placement. Urine output through nephrostomy tubes has continued to improve 09/05 I discussed case with sewage reticulation drafting officer Dr. Vences and we will initiate hemodialysis. Temporary dialysis catheter was placed and patient was started on hemodialysis 09/06 patient is getting another hemodialysis session today 09/08 I discussed case with Dr. Vences today and requested the patient be dialyzed for fluid removal but due to staffing shortage she will not be dialyzed until tomorrow 09/09 patient was dialyzed again 09/11 patient is being dialyzed again today and has been placed on dialysis at this time 09/12 dialysis and 1200 mL was removed Nephrology has started patient on Bumex and plan is to monitor renal function and re-evaluate if patient needs another session of dialysis. Considerable improvement in nephrostomy tube output, she may not need another session Monitor urine output electrolytes and creatinine Creatinine continues to increase from 4.6 yesterday to 5 today. However, Electrolytes are within acceptable limits. Urinary output has picked up to 1.75 L overnight. There is no indication for renal replacement therapy. Will continue to hold off dialysis. For hypokalemia with a K of 3.3, give orange juice. 09/18/21 Dialysis today BUN/Cr 95/4.90 Nephrology consulted Trend electrolytes (2) Abnormal LFTs: Code(s): R79.89 - Other specified abnormal findings of blood chemistry Status: Acute Assessment and Plan: Seems to be resolved at this time AST/ALT very slight elevation Likely shock liver Monitor levels at this time which are improving Hold statin (3) Acute respiratory failure with hypoxia: Code(s): J96.01 - Acute respiratory failure with hypoxia Status: Acute Assessment and Plan: Acute Respiratory failure secondary to cardiac arrest, COVID-19 pneumonia, pulmonary emboli Her CT scan shows bilateral infiltrates which are secondary to her underlying COVID-19 pneumonia but also has a component of pulmonary edema as patient is volume overloaded Aspiration is also possibility at the time of her cardiac arrest Patient is extubated on 09/14/2021 PCXR reviewed and shows persistent bilateral infiltrates CT abdomen pelvis showed infiltrates on bases of lungs bilaterally On room air sating 100% Seems to be resolved at this time (4) Pneumonia due to 2019-nCoV: Code(s): U07.1 - COVID-19; J12.82 - Pneumonia due to coronavirus disease 2018 Status: Acute Assessment and Plan: Seems to be resolved at this time SARS-CoV-2 PCR positive Patient is in Airborne, Droplet and Contact Isolation Patient was on dexamethasone which has been changed to stress dose hydrocortisone at this time due to shock Convalscent plasma therapy for COVID-19 administered on 08/22 Patient received 9 doses of remdesivir and now due to high ALT and decreased renal function remdesivir has been discontinued (5) Encephalopathy: Code(s): G93.40 - Encephalopathy, unspecified Status: Acute Assessment and Plan: RESOLVED Likely toxic metabolic encephalopathy but patient also had a brief cardiac arrest and there is always a possibility of anoxi
[2021-09-19] MEDS: METOPROLOL TARTRATE INJ 5 MG/5 ML VIAL 2.5 MG IV PUSH (09:37)
[2021-09-19] MEDS: POTASSIUM CHLORIDE 20 MEQ PACKET (FOR LIQUID) 40 MEQ PO (09:43)
--- NOTE | 2021-09-19 13:25 | PCNFU ---
Nutrition Follow-Up Complete: Inadequate Oral Intake as related to mechanical vent as evidenced by NPO. Goal: Meet estimated nutritional needs Patient is progressing towards goal. We will continue current goal. Pt current nutrition is Nepro at 30 ml/hr over 22 hours goal rate at 45 ml/hr Last recorded weight is 102 kg-stable Bowel Motility:FMS Labs Reviewed:PO4 6.0,Na 149, K 3.2,BUN 95,Cr 4.9 Meds Noted:No meds to report at this time. Skin: Left chest-Deep Tissue Additional Notes: Patient remains on Dobbhoff feedings of Nepro. Spoke with nursing today current tube feeding rate is 30 ml/hr plans to advance to 45 ml/hr. Goal rate of tube feeding providing 1782 kcals/80 gms protein/719 ml water. Free water flush 30 ml q 4 hours. Tube feedings remain appropriate. Banatrol Plus given q 6 hours via tube for stool bulking. Monitoring: Will monitor every Saturday and Saturday.
[2021-09-19 13:34] LABS: Glucose Point of Care 108 mg/dl (65-105)
[2021-09-19 15:47] LABS: Glucose Point of Care 106 mg/dl (65-105)
[2021-09-19] MEDS: CENTRAL LINE FLUSH 10 ML IV PUSH (17:28)
[2021-09-19 20:57] LABS: Glucose Point of Care 116 mg/dl (65-105)
[2021-09-20] VITALS (11 sets, daily range): BP systolic 139–162; BP diastolic 88–102; PULSE 105–126; RESP 18–28; TEMP 36.2–37.4; O2SAT 95–100
[2021-09-20 04:59] LABS: Glucose Point of Care 117 mg/dl (65-105)
[2021-09-20 05:50] LABS: Anion Gap 11 mmol/L (8-16); Blood Urea Nitrogen 64 mg/dL (7-17); Calcium 9.9 mg/dL (8.4-10.2); Carbon Dioxide 31 mmol/L (22-30); Chloride 106 mmol/L (98-107); Estimated CRCL calculation 21 ml/min; Estimated Glomerular Filt Rate 14; Glucose 127 mg/dL (65-110); Potassium 3.1 mmol/L (3.4-5.0); Sodium 148 mmol/L (137-145)
--- NOTE | 2021-09-20 07:30 | PM.IMPN ---
Progress Note: A&P Assessment and Plan (1) JERRY (acute kidney injury): Code(s): N17.9 - Acute kidney failure, unspecified Status: Acute Assessment and Plan: Likely secondary to shock, contrast for CT and possible obstruction Renal US IMPRESSION: 1. Mild bilateral hydroureteronephrosis. 2. Large pelvic hematoma. 3. Small amount of perihepatic ascites. Consulted urology for hydroureteronephrosis Repeat CT abdomen pelvis 09/02 showed Moderate bilateral hydronephrosis and hydroureter secondary to mass effect from the pelvic hematoma, worsened from 08/30/21. I discussed case with urologist and she recommended nephrostomy insert of stents due to alteration of patient's anatomy from large hematoma. 09/[address]-guided nephrostomy tube placement. Urine output through nephrostomy tubes has continued to improve 09/05 I discussed case with director of guidance in public [employer] Dr. Vences and we will initiate hemodialysis. Temporary dialysis catheter was placed and patient was started on hemodialysis 09/06 patient is getting another hemodialysis session today 09/08 I discussed case with Dr. Vences today and requested the patient be dialyzed for fluid removal but due to staffing shortage she will not be dialyzed until tomorrow 09/09 patient was dialyzed again 09/11 patient is being dialyzed again today and has been placed on dialysis at this time 09/12 dialysis and 1200 mL was removed Nephrology has started patient on Bumex and plan is to monitor renal function and re-evaluate if patient needs another session of dialysis. Considerable improvement in nephrostomy tube output, she may not need another session Monitor urine output electrolytes and creatinine Creatinine continues to increase from 4.6 yesterday to 5 today. However, Electrolytes are within acceptable limits. Urinary output has picked up to 1.75 L overnight. There is no indication for renal replacement therapy. Will continue to hold off dialysis. For hypokalemia with a K of 3.3, give orange juice. 09/20/21 Dialysis on hold due to staffing, but also her kidney function is not doing bad at this time BUN/Cr 64/3.60 Nephrology consulted Trend electrolytes (2) Abnormal LFTs: Code(s): R79.89 - Other specified abnormal findings of blood chemistry Status: Acute Assessment and Plan: Seems to be resolved at this time AST/ALT very slight elevation Likely shock liver Monitor levels at this time which are improving Hold statin (3) Acute respiratory failure with hypoxia: Code(s): J96.01 - Acute respiratory failure with hypoxia Status: Acute Assessment and Plan: Acute Respiratory failure secondary to cardiac arrest, COVID-19 pneumonia, pulmonary emboli Her CT scan shows bilateral infiltrates which are secondary to her underlying COVID-19 pneumonia but also has a component of pulmonary edema as patient is volume overloaded Aspiration is also possibility at the time of her cardiac arrest Patient is extubated on 09/14/2021 PCXR reviewed and shows persistent bilateral infiltrates CT abdomen pelvis showed infiltrates on bases of lungs bilaterally On room air sating 100% Seems to be resolved at this time (4) Pneumonia due to 2019-nCoV: Code(s): U07.1 - COVID-19; J12.82 - Pneumonia due to coronavirus disease 2019 Status: Acute Assessment and Plan: Seems to be resolved at this time SARS-CoV-2 PCR positive Patient is in Airborne, Droplet and Contact Isolation Patient was on dexamethasone which has been changed to stress dose hydrocortisone at this time due to shock Convalscent plasma therapy for COVID-19 administered on 08/22 Patient received 9 doses of remdesivir and now due to high ALT and decreased renal function remdesivir has been discontinued (5) Encephalopathy: Code(s): G93.40 - Encephalopathy, unspecified Status: Acute Assessment and Plan: RESOLVED Likely toxic metabolic encephalopathy b
[2021-09-20 08:36] LABS: Alanine Aminotransferase 25 U/L (4-35); Albumin Level 3.9 g/dL (3.5-5.1); Alkaline Phosphatase 131 U/L (38-126); Anion Gap 11 mmol/L (8-16); Aspartate Amino Transferase 37 U/L (14-36); Bilirubin,Total 1.1 mg/dL (0.2-1.3); Blood Urea Nitrogen 64 mg/dL (7-17); Carbon Dioxide 30 mmol/L (22-30); Chloride 106 mmol/L (98-107); Estimated CRCL calculation 20 ml/min; Estimated Glomerular Filt Rate 13; Glucose 130 mg/dL (65-110); Potassium 3.2 mmol/L (3.4-5.0); Sodium 147 mmol/L (137-145)
[2021-09-20 10:09] LABS: Glucose Point of Care 128 mg/dl (65-105)
[2021-09-20 12:36] LABS: Basophils Absolute Auto 0.1 K/mm3 (0.0-0.1); Eosinophils Absolute Auto 0.7 K/mm3 (0-0.3); Eosinophils Percent Auto 5.4 % (0-4.4); Hematocrit 33.2 % (37.0-47.0); Hemoglobin 10.1 g/dL (12.0-15.0); Immature Granulocyte Absolute 0.25 K/mm3 (0.00-0.031); Immature Granulocyte Percent A 1.8 % (0-0.5); Lymphocytes Percent Auto 14.7 % (18.3-44.2); Mean Corpuscular HGB Conc 30.4 g/dl (32-36); Mean Corpuscular Volume 98.5 fl (80-100); Mean Platelet Volume 10.9 fl (7.4-10.4); Monocytes Absolute Auto 1.3 K/mm3 (0.1-0.6); Monocytes Percent Auto 9.3 % (2.6-8.5); Neutrophils Absolute Auto 9.2 K/mm3 (1.3-6.7); Neutrophils Percent Auto 67.8 % (45.5-73.1); Nucleated Red Blood Cells Absolute Auto 0.1 K/mm3 (0.0-0.012); Nucleated Red Blood Cells Perc 0.4 % (0.0-0.2); Platelet Count Result 518 k/mm3 (150-375); Red Blood Count 3.37 M/mm3 (4.2-5.4); Red Cell Distribution Width 16.9 % (11.5-14.5); White Blood Count 13.6 K/mm3 (4.5-10.0)
[2021-09-20 12:36] LABS: Glucose Point of Care 119 mg/dl (65-105)
--- NOTE | 2021-09-20 13:05 | P.PNNP_ITS ---
Progress Note: A&P Assessment and Plan (1) JERRY (acute kidney injury): Code(s): N17.9 - Acute kidney failure, unspecified Status: Acute Assessment and Plan: * due to ATN from: * hemorrhagic shock * contrast exposure * obstruction * evaluation to date: * renal ultrasound with evidence of obstruction - s/p nephrostomy tube placement * CPK mildly elevated (but not enough to affect kidney function) * urine electrolytes non-prerenal * Because of dialysis staffing issues the patient was treated Saturday. * BUN and creatinine up but only by a little bit. So were holding on dialysis today will follow couple more days to see if she starts to turn around (2) Bilateral hydronephrosis: Code(s): N13.30 - Unspecified hydronephrosis Status: Acute Assessment and Plan: * as noted by renal ultrasound * CT scan (09/02/20) with moderate bilateral hydronephrosis and hydroureter secondary to mass effect from the pelvic hematoma, worsened from 08/30/21 * s/p bilateral CT-guided nephrostomy tube placement on 09/02/20 * management per Urology (3) Anemia associated with acute blood loss: Code(s): D62 - Acute posthemorrhagic anemia Status: Acute Assessment and Plan: * as noted by recent CT scan: * large hematoma in right pelvis extending into the peritoneum with two foci of active extravasation of contrast; hematomas in the rectus abdominis muscles, right worse than left * hemoglobin now 10.0. * Gettting EPO 10,000 3 times a week will change to subQ (4) Hemorrhagic shock: Code(s): R57.8 - Other shock Status: Acute Assessment and Plan: * resolved * off pressors (5) Acute respiratory failure with hypoxia: Code(s): J96.01 - Acute respiratory failure with hypoxia Status: Acute Assessment and Plan: * resolved - extubated * due to cardiac arrest, COVID pneumonia, and pulmonary embolism (6) Pneumonia due to COVID-19 virus: Code(s): U07.1 - COVID-19; J12.82 - Pneumonia due to coronavirus disease 2019 Status: Acute Assessment and Plan: * positive by recent testing * on steroids (more so for shock than COVID at this time) * s/p convalscent plasma on 08/22/21 * s/p remdesivir but stopped due to elevated LFTs and renal dysfunction * Isolation has ?timed out ?. (7) Pulmonary embolism: Qualifiers: Pulmonary embolism type: unspecified Chronicity: acute Acute cor pulmonale presence: without acute cor pulmonale Qualified Code(s): I26.99 - Other pulmonary embolism without acute cor pulmonale Code(s): I26.99 - Other pulmonary embolism without acute cor pulmonale Status: Acute Assessment and Plan: * as diagnosed by CT angiogram of chest * off all anticoagulation due to #3 and #4 Will continue to follow. Subjective Date/time seen: 09/20/21 13:05 Interval history: Patient is awake. No chest pain. No shortness of breath. She failed her swallowing test so is now getting tube feedings per Dobbhoff tube. tolerating the tube feedings so far. Exam Narrative: General: WD/WN female in NAD Heart: normal S1 and S2; no rub Lungs: coarse breath sounds Abdomen: soft, nontender, nondistended; RLQ bruising noted Extremities: 1+ edema in the presacral area and no cyanosis Skin: no rash Or subQ nodules Objective Data Vital Signs Vital Signs: Vital Signs - 24 hr 09/19/21 14:00 09/19/21
--- NOTE | 2021-09-20 13:05 | PM.PNNEP ---
Progress Note: A&P Assessment and Plan (1) JERRY (acute kidney injury): Code(s): N17.9 - Acute kidney failure, unspecified Status: Acute Assessment and Plan: due to ATN from: hemorrhagic shock contrast exposure obstruction evaluation to date: renal ultrasound with evidence of obstruction - s/p nephrostomy tube placement CPK mildly elevated (but not enough to affect kidney function) urine electrolytes non-prerenal Because of dialysis staffing issues the patient was treated Saturday. BUN and creatinine up but only by a little bit. So were holding on dialysis today will follow couple more days to see if she starts to turn around (2) Bilateral hydronephrosis: Code(s): N13.30 - Unspecified hydronephrosis Status: Acute Assessment and Plan: as noted by renal ultrasound CT scan (09/02/20) with moderate bilateral hydronephrosis and hydroureter secondary to mass effect from the pelvic hematoma, worsened from 08/30/[address]-guided nephrostomy tube placement on 09/02/20 management per Urology (3) Anemia associated with acute blood loss: Code(s): D62 - Acute posthemorrhagic anemia Status: Acute Assessment and Plan: as noted by recent CT scan: large hematoma in right pelvis extending into the peritoneum with two foci of active extravasation of contrast; hematomas in the rectus abdominis muscles, right worse than left hemoglobin now 10.0. Gettting EPO 10,000 3 times a week will change to subQ (4) Hemorrhagic shock: Code(s): R57.8 - Other shock Status: Acute Assessment and Plan: resolved off pressors (5) Acute respiratory failure with hypoxia: Code(s): J96.01 - Acute respiratory failure with hypoxia Status: Acute Assessment and Plan: resolved - extubated due to cardiac arrest, COVID pneumonia, and pulmonary embolism (6) Pneumonia due to COVID-19 virus: Code(s): U07.1 - COVID-19; J12.82 - Pneumonia due to coronavirus disease 2019 Status: Acute Assessment and Plan: positive by recent testing on steroids (more so for shock than COVID at this time) s/p convalscent plasma on 08/22/21 s/p remdesivir but stopped due to elevated LFTs and renal dysfunction Isolation has ?timed out ?. (7) Pulmonary embolism: Qualifiers: Pulmonary embolism type: unspecified Chronicity: acute Acute cor pulmonale presence: without acute cor pulmonale Qualified Code(s): I26.99 - Other pulmonary embolism without acute cor pulmonale Code(s): I26.99 - Other pulmonary embolism without acute cor pulmonale Status: Acute Assessment and Plan: as diagnosed by CT angiogram of chest off all anticoagulation due to #3 and #4 Will continue to follow. Subjective Date/time seen: 09/20/21 13:05 Interval history: Patient is awake. No chest pain. No shortness of breath. She failed her swallowing test so is now getting tube feedings per Dobbhoff tube. tolerating the tube feedings so far. Exam Narrative: General: WD/WN female in NAD Heart: normal S1 and S2; no rub Lungs: coarse breath sounds Abdomen: soft, nontender, nondistended; RLQ bruising noted Extremities: 1+ edema in the presacral area and no cyanosis Skin: no rash Or subQ nodules Objective Data Vital Signs Vital Signs: Vital Signs - 24 hr 09/19/21 14:00 09/19/21 15:55 09/19/21 16:00 Temperature 37.1 C Pulse Rate 123 H 121 H 128 H Respiratory Rate 28 H Blood Pressure 140/90 Pulse Oximetry 94 09/19/21 20:00 09/20/21 00:00 09/20/21 01:45 Temperature 36.5 C 36.6 C Pulse Rate 117 H 121 H Respiratory Rate 20 20 Blood Pressure 125/73 140/91 H Pulse Oximetry 98 96 96 09/20/21 04:00 09/20/21 08:00 09/20/21 08:43 Temperature 36.8 C 36.2 C L Pulse Rate 113 H 116 H Respiratory Rate 20 26 H Blood Pressure 141/88 H 140/97 H Pulse Oximetry 97 98 95 09/20/21 12:00
[2021-09-20] MEDS: EPOETIN ALFA-EPBX 10,000 UNITS/ML VIAL 10000 UNITS SUB-Q (14:43)
[2021-09-20] MEDS: ALTEPLASE 2 MG VIAL (CATHFLO) IV PUSH ×2 (17:18)
[2021-09-20 19:13] LABS: Glucose Point of Care 105 mg/dl (65-105)
[2021-09-20] MEDS: CENTRAL LINE FLUSH 10 ML IV PUSH (19:50)
[2021-09-20 20:10] LABS: Glucose Point of Care 111 mg/dl (65-105)
[2021-09-20 23:16] LABS: Glucose Point of Care 123 mg/dl (65-105)
[2021-09-21] VITALS (8 sets, daily range): BP systolic 125–151; BP diastolic 79–89; PULSE 94–126; RESP 20–58; TEMP 36.4–37.3; O2SAT 93–100
[2021-09-21 04:21] LABS: Glucose Point of Care 117 mg/dl (65-105)
[2021-09-21 06:56] LABS: Basophils Absolute Auto 0.2 K/mm3 (0.0-0.1); Eosinophils Absolute Auto 0.6 K/mm3 (0-0.3); Eosinophils Percent Auto 3.9 % (0-4.4); Hematocrit 34.3 % (37.0-47.0); Hemoglobin 10.7 g/dL (12.0-15.0); Immature Granulocyte Absolute 0.16 K/mm3 (0.00-0.031); Immature Granulocyte Percent A 1.1 % (0-0.5); Lymphocytes Absolute Auto 1.78 K/mm3 (0.9-3.2); Lymphocytes Percent Auto 12.2 % (18.3-44.2); Mean Corpuscular HGB Conc 31.2 g/dl (32-36); Mean Corpuscular Hemoglobin 30.7 pg (26-34); Mean Corpuscular Volume 98.6 fl (80-100); Mean Platelet Volume 10.7 fl (7.4-10.4); Monocytes Absolute Auto 1.3 K/mm3 (0.1-0.6); Monocytes Percent Auto 8.5 % (2.6-8.5); Neutrophils Absolute Auto 10.7 K/mm3 (1.3-6.7); Neutrophils Percent Auto 73.3 % (45.5-73.1); Nucleated Red Blood Cells Perc 0.2 % (0.0-0.2); Platelet Count Result 495 k/mm3 (150-375); Red Blood Count 3.48 M/mm3 (4.2-5.4); White Blood Count 14.6 K/mm3 (4.5-10.0)
[2021-09-21 07:05] LABS: Sodium 151 mmol/L (137-145)
[2021-09-21 07:18] LABS: Albumin Level 3.9 g/dL (3.5-5.1); Anion Gap 13 mmol/L (8-16); Blood Urea Nitrogen 76 mg/dL (7-17); Calcium 9.9 mg/dL (8.4-10.2); Carbon Dioxide 28 mmol/L (22-30); Chloride 110 mmol/L (98-107); Estimated CRCL calculation 21 ml/min; Estimated Glomerular Filt Rate 14; Glucose 135 mg/dL (65-110); Phosphorus 5.2 mg/dL (2.5-4.5); Potassium 2.9 mmol/L (3.4-5.0)
--- NOTE | 2021-09-21 08:15 | PM.IMPN ---
Progress Note: A&P Assessment and Plan (1) JERRY (acute kidney injury): Code(s): N17.9 - Acute kidney failure, unspecified Status: Acute Assessment and Plan: Likely secondary to shock, contrast for CT and possible obstruction Renal US IMPRESSION: 1. Mild bilateral hydroureteronephrosis. 2. Large pelvic hematoma. 3. Small amount of perihepatic ascites. Consulted urology for hydroureteronephrosis Repeat CT abdomen pelvis 09/02 showed Moderate bilateral hydronephrosis and hydroureter secondary to mass effect from the pelvic hematoma, worsened from 08/30/21. I discussed case with urologist and she recommended nephrostomy insert of stents due to alteration of patient's anatomy from large hematoma. 09/[address]-guided nephrostomy tube placement. Urine output through nephrostomy tubes has continued to improve 09/05 I discussed case with deputy felony clerk Dr. Vences and we will initiate hemodialysis. Temporary dialysis catheter was placed and patient was started on hemodialysis 09/06 patient is getting another hemodialysis session today 09/08 I discussed case with Dr. Vences today and requested the patient be dialyzed for fluid removal but due to staffing shortage she will not be dialyzed until tomorrow 09/09 patient was dialyzed again 09/11 patient is being dialyzed again today and has been placed on dialysis at this time 09/12 dialysis and 1200 mL was removed Nephrology has started patient on Bumex and plan is to monitor renal function and re-evaluate if patient needs another session of dialysis. Considerable improvement in nephrostomy tube output, she may not need another session Monitor urine output electrolytes and creatinine Creatinine continues to increase from 4.6 yesterday to 5 today. However, Electrolytes are within acceptable limits. Urinary output has picked up to 1.75 L overnight. There is no indication for renal replacement therapy. Will continue to hold off dialysis. For hypokalemia with a K of 3.3, give orange juice. 09/21/21 Dialysis on hold due to staffing, but also her kidney function is not doing bad at this time BUN/Cr 76/3.40 Nephrology consulted Trend electrolytes (2) Abnormal LFTs: Code(s): R79.89 - Other specified abnormal findings of blood chemistry Status: Acute Assessment and Plan: Seems to be resolved at this time AST/ALT very slight elevation Likely shock liver Monitor levels at this time which are improving Hold statin (3) Acute respiratory failure with hypoxia: Code(s): J96.01 - Acute respiratory failure with hypoxia Status: Acute Assessment and Plan: Acute Respiratory failure secondary to cardiac arrest, COVID-19 pneumonia, pulmonary emboli Her CT scan shows bilateral infiltrates which are secondary to her underlying COVID-19 pneumonia but also has a component of pulmonary edema as patient is volume overloaded Aspiration is also possibility at the time of her cardiac arrest Patient is extubated on 09/14/2021 PCXR reviewed and shows persistent bilateral infiltrates CT abdomen pelvis showed infiltrates on bases of lungs bilaterally On room air sating 100% Seems to be resolved at this time (4) Pneumonia due to 2019-nCoV: Code(s): U07.1 - COVID-19; J12.82 - Pneumonia due to coronavirus disease 2019 Status: Acute Assessment and Plan: Seems to be resolved at this time SARS-CoV-2 PCR positive Patient is in Airborne, Droplet and Contact Isolation Patient was on dexamethasone which has been changed to stress dose hydrocortisone at this time due to shock Convalscent plasma therapy for COVID-19 administered on 08/22 Patient received 9 doses of remdesivir and now due to high ALT and decreased renal function remdesivir has been discontinued (5) Encephalopathy: Code(s): G93.40 - Encephalopathy, unspecified Status: Acute Assessment and Plan: RESOLVED Likely toxic metabolic encephalopathy b
[2021-09-21 08:34] LABS: Glucose Point of Care 122 mg/dl (65-105)
[2021-09-21] MEDS: POTASSIUM CHLORIDE 20 MEQ PACKET (FOR LIQUID) 40 MEQ PO (09:53)
--- NOTE | 2021-09-21 10:56 | P.PNNP_ITS ---
Progress Note: A&P Assessment and Plan (1) JERRY (acute kidney injury): Code(s): N17.9 - Acute kidney failure, unspecified Status: Acute Assessment and Plan: * due to ATN from: * hemorrhagic shock * contrast exposure * obstruction * evaluation to date: * renal ultrasound with evidence of obstruction - s/p nephrostomy tube placement * CPK mildly elevated (but not enough to affect kidney function) * urine electrolytes non-prerenal * Last dialysis was on Saturday. * Creatinine is stable * Still making urine. * Continue current therapy. (2) Bilateral hydronephrosis: Code(s): N13.30 - Unspecified hydronephrosis Status: Acute Assessment and Plan: * as noted by renal ultrasound * CT scan (09/02/20) with moderate bilateral hydronephrosis and hydroureter secondary to mass effect from the pelvic hematoma, worsened from 08/30/21 * s/p bilateral CT-guided nephrostomy tube placement on 09/02/20 * management per Urology (3) Anemia associated with acute blood loss: Code(s): D62 - Acute posthemorrhagic anemia Status: Acute Assessment and Plan: * as noted by recent CT scan: * large hematoma in right pelvis extending into the peritoneum with two foci of active extravasation of contrast; hematomas in the rectus abdominis muscles, right worse than left * hemoglobin now 10.0. * Gettting EPO 10,000 3 times a week subcutaneously (4) Hemorrhagic shock: Code(s): R57.8 - Other shock Status: Acute Assessment and Plan: * resolved * off pressors (5) Acute respiratory failure with hypoxia: Code(s): J96.01 - Acute respiratory failure with hypoxia Status: Acute Assessment and Plan: * resolved - extubated * due to cardiac arrest, COVID pneumonia, and pulmonary embolism (6) Pneumonia due to COVID-19 virus: Code(s): U07.1 - COVID-19; J12.82 - Pneumonia due to coronavirus disease 2019 Status: Acute Assessment and Plan: * positive by recent testing * on steroids (more so for shock than COVID at this time) * s/p convalscent plasma on 08/22/21 * s/p remdesivir but stopped due to elevated LFTs and renal dysfunction * Isolation has ?timed out ?. (7) Pulmonary embolism: Qualifiers: Acute cor pulmonale presence: without acute cor pulmonale Chronicity: acute Pulmonary embolism type: unspecified Qualified Code(s): I26.99 - Other pulmonary embolism without acute cor pulmonale Code(s): I26.99 - Other pulmonary embolism without acute cor pulmonale Status: Acute Assessment and Plan: * as diagnosed by CT angiogram of chest * off all anticoagulation due to #3 and #4 Will continue to follow. Subjective Date/time seen: 09/21/21 10:56 Interval history: Patient is awake. No chest pain. Seems a little dyspneic but she has no shortness of breath she says Oxygen saturations are fine on room air Exam Narrative: General: WD/WN female in NAD Heart: normal S1 and S2; no rub or gallop Lungs: coarse breath sounds bilaterally Abdomen: soft, nontender, nondistended; RLQ bruising noted Extremities: 1+ edema in the presacral area and no cyanosis Skin: no rash or subQ nodules Objective Data Vital Signs Vital Signs: Vital Signs - 24 hr 09/20/21 12:00 09/20/21 14:00 09/20/21 16:00 Temperature 37.4 C 37.2 C Pulse Rate 124 H 111 H 126 H Respiratory
--- NOTE | 2021-09-21 10:56 | PM.PNNEP ---
Progress Note: A&P Assessment and Plan (1) JERRY (acute kidney injury): Code(s): N17.9 - Acute kidney failure, unspecified Status: Acute Assessment and Plan: due to ATN from: hemorrhagic shock contrast exposure obstruction evaluation to date: renal ultrasound with evidence of obstruction - s/p nephrostomy tube placement CPK mildly elevated (but not enough to affect kidney function) urine electrolytes non-prerenal Last dialysis was on Saturday. Creatinine is stable Still making urine. Continue current therapy. (2) Bilateral hydronephrosis: Code(s): N13.30 - Unspecified hydronephrosis Status: Acute Assessment and Plan: as noted by renal ultrasound CT scan (09/02/20) with moderate bilateral hydronephrosis and hydroureter secondary to mass effect from the pelvic hematoma, worsened from 08/30/[address]-guided nephrostomy tube placement on 09/02/20 management per Urology (3) Anemia associated with acute blood loss: Code(s): D62 - Acute posthemorrhagic anemia Status: Acute Assessment and Plan: as noted by recent CT scan: large hematoma in right pelvis extending into the peritoneum with two foci of active extravasation of contrast; hematomas in the rectus abdominis muscles, right worse than left hemoglobin now 10.0. Gettting EPO 10,000 3 times a week subcutaneously (4) Hemorrhagic shock: Code(s): R57.8 - Other shock Status: Acute Assessment and Plan: resolved off pressors (5) Acute respiratory failure with hypoxia: Code(s): J96.01 - Acute respiratory failure with hypoxia Status: Acute Assessment and Plan: resolved - extubated due to cardiac arrest, COVID pneumonia, and pulmonary embolism (6) Pneumonia due to COVID-19 virus: Code(s): U07.1 - COVID-19; J12.82 - Pneumonia due to coronavirus disease 2019 Status: Acute Assessment and Plan: positive by recent testing on steroids (more so for shock than COVID at this time) s/p convalscent plasma on 08/22/21 s/p remdesivir but stopped due to elevated LFTs and renal dysfunction Isolation has ?timed out ?. (7) Pulmonary embolism: Qualifiers: Acute cor pulmonale presence: without acute cor pulmonale Chronicity: acute Pulmonary embolism type: unspecified Qualified Code(s): I26.99 - Other pulmonary embolism without acute cor pulmonale Code(s): I26.99 - Other pulmonary embolism without acute cor pulmonale Status: Acute Assessment and Plan: as diagnosed by CT angiogram of chest off all anticoagulation due to #3 and #4 Will continue to follow. Subjective Date/time seen: 09/21/21 10:56 Interval history: Patient is awake. No chest pain. Seems a little dyspneic but she has no shortness of breath she says Oxygen saturations are fine on room air Exam Narrative: General: WD/WN female in NAD Heart: normal S1 and S2; no rub or gallop Lungs: coarse breath sounds bilaterally Abdomen: soft, nontender, nondistended; RLQ bruising noted Extremities: 1+ edema in the presacral area and no cyanosis Skin: no rash or subQ nodules Objective Data Vital Signs Vital Signs: Vital Signs - 24 hr 09/20/21 12:00 09/20/21 14:00 09/20/21 16:00 Temperature 37.4 C 37.2 C Pulse Rate 124 H 111 H 126 H Respiratory Rate 26 H 28 H Blood Pressure 162/102 H 148/90 H Pulse Oximetry 97 100 09/20/21 18:00 09/20/21 20:00 09/20/21 23:15 Temperature 36.7 C 36.6 C Pulse Rate 105 H 118 H 118 H Respiratory Rate 18 20 Blood Pressure 152/89 H 139/90 Pulse Oximetry 97 97 09/21/21 00:00 09/21/21 04:00 Temperature 36.6 C Pulse Rate 114 H 109 H Respiratory Rate 20 Blood Pressure 147/89 H Pulse Oximetry 97 Intake/Output Intake/Output: Intake & Output 09/18/21 09/19/21 09/20/21 09/21/21 23:59 23:59 23:59 23:59 Intake Total 120 1078 0 0 Output Total 2550 950 1725 950
[2021-09-21 13:32] LABS: Glucose Point of Care 123 mg/dl (65-105)
[2021-09-21] MEDS: LABETALOL HCL INJ 100 MG/20 ML VIAL 20 MG IV PUSH (15:18)
[2021-09-21 17:29] LABS: Glucose Point of Care 113 mg/dl (65-105)
[2021-09-21] MEDS: CENTRAL LINE FLUSH 10 ML IV PUSH (17:50)
[2021-09-21 21:50] LABS: Glucose Point of Care 111 mg/dl (65-105)
[2021-09-22] VITALS (27 sets, daily range): BP systolic 110–146; BP diastolic 65–95; PULSE 15–145; RESP 16–42; TEMP 37.2–37.7; O2SAT 95–100
--- NOTE | 2021-09-22 | ECHO_ITS ---
Patient Info Name: Arielle Zuleta Age: 55 years : 1965 Gender: Female Ht: 66 in Wt: 213 lbs BSA: 2.16 m2 HR: 125 bpm BP: 140 / 79 mmHg Heart Rhythm: Tachycardia, Sinus Rhythm Exam Date: 09/22/2021 3:51 PM Exam Location: [facility] Pulmonary Patient Status: Inpatient Admit Date: 08/21/2021 Staff Ordering Physician: Delano Spence MD Network Liaison: Judson Henry, CATHY, RT Attending Provider: Freddy Mojica MD Referring Physician: Bebe KELLY; Exam Type: CA echo dop color flow w con Study Info Indications I48.1 - Persistent atrial fibrillation Complete two-dimensional, color flow and Doppler transthoracic echocardiogram is performed with contrast to opacify the left ventricle and to improve the deliniation of the left ventricle endocardial borders. Summary 1. Technically difficult study with limited views. Regional wall motion assessment limited due to poor endomyocardial border definition. Definity contrast enhancement utilized without clear regional wall motion abnormalities identified. 2. Left ventricular systolic function is normal, estimated at 65-70%. 3. Left ventricular chamber dimension is normal. 4. The left ventricular diastolic function is grade I diastolic dysfunction. 5. There is no aortic valve stenosis. 6. There is no mitral valve regurgitation. 7. Unable to assess PA systolic pressure due to poor spectral resolution of tricuspid regurgitant jet velocity. Left Ventricle Left ventricular chamber dimension is normal. Left ventricular systolic function is normal, estimated at 65-70%. There is no increased left ventricular wall thickness. The left ventricular diastolic function is grade I diastolic dysfunction. Technically difficult study with limited views. Regional wall motion assessment limited due to poor endomyocardial border definition. Definity contrast enhancement utilized without clear regional wall motion abnormalities identified. Right Ventricle Right ventricular chamber dimension is not well visualized. Left Atria Left atrial chamber dimension is not well visualized. Right Atria Right atrial chamber dimension is not well visualized. Aortic Valve The aortic valve is not well visualized. There is no aortic valve stenosis. There is no aortic valve regurgitation. Pulmonic Valve The pulmonic valve is not well visualized. Mitral Valve The mitral valve has normal leaflets. There is no mitral valve regurgitation. Tricuspid Valve The tricuspid valve leaflets are not well visualized. Unable to assess PA systolic pressure due to poor spectral resolution of tricuspid regurgitant jet velocity. Pericardium/Pleural The pericardium appears not well visualized. There is trivial pericardial effusion. Inferior Vena Cava Normal inferior vena cava with no collapse upon inspiration consistent with elevated right atrial pressure, 10 mmHg. Aorta The aortic root size at the sinus of Valsalva is normal. Left Ventricular Outflow Tract Name Value Normal LVOT Doppler LVOT Peak Gradient 3 mmHg LVOT Mean Gradient 2 mmHg LVOT VTI 11.72 cm LVOT VTI/AV VTI Ratio 0.94 M
[2021-09-22 00:24] LABS: Glucose Point of Care 117 mg/dl (65-105)
--- NOTE | 2021-09-22 07:12 | WPDUROPN2 ---
Progress Note: A&P Assessment and Plan (1) Bilateral hydronephrosis: Code(s): N13.30 - Unspecified hydronephrosis Status: Acute Time Spent With Patient Time: Bilat. nephrostomy tubes draining well. Very little urine per Viera catheter. Sometime, when more medically stable, will attempt to internalize ureteral stents. Subjective Subjective Date/Time Seen: 09/22/21 07:12 Progress noted. Awake but not responding appropriately to questioning. Review of Systems Review of Systems: ROS unobtainable: Yes unobtainable due to mental status Exam Resp: Effort & Inspection: normal respiratory effort Urinary Catheter: Urinary Catheter: urine red Objective Data Vital Signs Vital Signs: Vital Signs - 24 hr 09/21/21 08:00 09/21/21 12:00 09/21/21 15:18 Temperature 98.6 F 98.3 F Pulse Rate 124 H 124 H 120 H Respiratory Rate 24 H 26 H Blood Pressure 151/83 H 149/86 H Pulse Oximetry 100 94 09/21/21 16:00 09/21/21 20:00 09/21/21 23:29 Temperature 99.2 F 98.4 F 97.5 F L Pulse Rate 94 114 H 113 H Respiratory Rate 28 H 58 H 20 Blood Pressure 125/79 149/87 H 140/81 Pulse Oximetry 97 93 98 09/22/21 00:00 09/22/21 03:54 09/22/21 04:00 Temperature 98.9 F Pulse Rate 122 H 119 H 119 H Respiratory Rate 20 24 H 24 H Blood Pressure 130/90 Pulse Oximetry 98 98 Intake/Output Intake/Output: Intake & Output 09/19/21 09/20/21 09/21/21 09/22/21 23:59 23:59 23:59 23:59 Intake Total 1078 0 148 399 Output Total 950 1725 1960 535 Balance 128 -1725 -1812 -136 Meds/Results Medications: Active Medications Generic Name Dose Route Start Last Admin Trade Name Freq PRN Reason Stop Dose Admin Alteplase, Recombinant 2 mg 09/20/21 16:31 09/20/21 17:18 Alteplase 2 Mg Vial (Cathflo) IV PUSH 2 mg ONCE PRN Administration Line Occlusion Alteplase, Recombinant 2 mg 09/20/21 16:32 09/20/21 17:18 Alteplase 2 Mg Vial (Cathflo) IV PUSH 2 mg ONCE PRN Administration Line Occlusion Dextrose 12.5 gm 08/31/21 08:30 Dextrose 50% 25 Gm/50 Ml Syringe IV PUSH PRN PRN Hypoglycemia Protocol Epoetin Arpan-epbx 10,000 units 09/20/21 14:00 09/20/21 14:43 Epoetin Arpan-Epbx 10,000 Units/Ml Vial SUB-Q 10,000 units MoWeFr@1400 SIXTO Administration Glucagon 1 mg 08/31/21 08:30 Glucagon For Inj 1 Mg Vial IM PRN PRN Hypoglycemia Protocol Glucose 15 gm 08/31/21 08:30 Glucose Oral Gel 15 Gm Of Glucse In 37.5 Gm Tube PO PRN PRN Hypoglycemia Protocol Dextrose 1,000 mls @ 100 mls/hr 08/31/21 08:30 Dextrose 5% 1,000 Ml IVPB PRN PRN Hypoglycemia Protocol Albumin Human 50 mls @ 999 mls/hr 09/05/21 09:31 09/12/21 10:00 Albutein IVPB 10/05/21 09:30 Infused Q10M PRN Infusion HYPOTENSION Insulin Aspart 4 - 8 units 08/31/21 09:00 09/22/21 05:46 Insulin Aspart (*Bkc) 100 Units/Ml SUB-Q Not Given Q4HR [facility] Protocol Labetalol HCl 20 mg 09/09/21 21:12 09/21/21 15:18 Labetalol Hcl Inj 100 Mg/20 Ml Vial IV PUSH 20 mg Q4H PRN Administration Hypertension Sodium Chloride 20 ml 08/30/21 14:11 Central Line Flush IV PUSH PRN PRN after blood draws Sodium Chloride 10 ml 09/02/21 18:00 09/21/21 17:50 Central Line Flush IV PUSH 10 ml DAILY@1800 SIXTO Administration Sodium Chloride 20 ml 09/01/21 20:03 Central Line Flush IV PUSH PRN PRN after blood draws Radiology Results: ITS Impressions Chest CTA 08/25/21 13:15 IMPRESSION: 1. Acute bilateral pulmonary emboli, new from 08/21/2021. I called this result to Michel Valentine. 2. Worsened diffuse lung disease, consistent with COVID-19 pneumonia. Abdomen X-Ray 08/30/21 07:50 IMPRESSION: Nonspecific abdomen; no bowel obstruction Chest/Abdomen/Pelvis CT 08/30/21 16:30 IMPRESSION: 1. Large hematoma in right pelvis extending into the peritoneum with two foci of active ex
[2021-09-22 07:26] LABS: Hematocrit 37.4 % (37.0-47.0); Hemoglobin 11.2 g/dL (12.0-15.0); Mean Corpuscular HGB Conc 29.9 g/dl (32-36); Mean Corpuscular Hemoglobin 29.4 pg (26-34); Mean Corpuscular Volume 98.2 fl (80-100); Mean Platelet Volume 10.8 fl (7.4-10.4); Platelet Count Result 541 k/mm3 (150-375); Red Blood Count 3.81 M/mm3 (4.2-5.4); Red Cell Distribution Width 17.5 % (11.5-14.5); White Blood Count 14.5 K/mm3 (4.5-10.0)
[2021-09-22 07:46] LABS: Anion Gap 12 mmol/L (8-16); Blood Urea Nitrogen 87 mg/dL (7-17); Calcium 9.9 mg/dL (8.4-10.2); Carbon Dioxide 30 mmol/L (22-30); Chloride 115 mmol/L (98-107); Estimated CRCL calculation 20 ml/min; Estimated Glomerular Filt Rate 14; Glucose 137 mg/dL (65-110); Magnesium 2.4 mg/dL (1.6-2.3); Potassium 3.2 mmol/L (3.4-5.0); Sodium 157 mmol/L (137-145)
--- NOTE | 2021-09-22 08:45 | PM.IMPN ---
Progress Note: A&P Assessment and Plan (1) Acute respiratory failure with hypoxia: Code(s): J96.01 - Acute respiratory failure with hypoxia Status: Acute Assessment and Plan: Acute Respiratory failure secondary to pulmonary edema vs PNA Chest xray showed PNA VS edema Nephrology on the case Bumex ordered by nephrology Adequate urine out put (2) JERRY (acute kidney injury): Code(s): N17.9 - Acute kidney failure, unspecified Status: Acute Assessment and Plan: Kidney function remains stable BUN/Cr 87/3.40 Nephrology consulted Trend electrolytes Bumex was ordered (3) Pulmonary embolism: Qualifiers: Acute cor pulmonale presence: without acute cor pulmonale Chronicity: acute Pulmonary embolism type: unspecified Qualified Code(s): I26.99 - Other pulmonary embolism without acute cor pulmonale Code(s): I26.99 - Other pulmonary embolism without acute cor pulmonale Status: Acute Assessment and Plan: Currently off of anticoagulation secondary to hemorrhagic shock. Not a candidate for anticoagulation at this time Checked lower extremity Dopplers for DVT and were negative Been off anticoagulation since 08/30/21. Continue to monitor for PE (4) Dysphasia: Code(s): R47.02 - Dysphasia Status: Acute Assessment and Plan: ST ordered Doubhoff placed Tube feeding NPO for now GI consulted thank you (5) Tachycardia: Code(s): R00.0 - Tachycardia, unspecified Status: Acute Assessment and Plan: HR 110-130s still persistent BP elevated nephrology on board continue tele monitor Trend heart rate Labetolol PRN is ordered (6) Paroxysmal A-fib: Code(s): I48.0 - Paroxysmal atrial fibrillation Status: Acute Assessment and Plan: Bouts of SVTs overnight Cards consulted thank you Metoprolol started See above about tachycardia (7) PNA (pneumonia): Code(s): J18.9 - Pneumonia, unspecified organism Status: Acute Assessment and Plan: Chest xray shows PNA vs edema WBC slightly elevated Started on cefepime Afebrile Time Spent With Patient Time with patient: Greater than 35 minutes Subjective Date/time seen: 09/22/21 0845 Interval history: 09/18/21 0700 Patient was lying in bed. Patient is fairly weak and does not have a voice at this time. Patient does have a cough with no production. Patient denies abdominal pain but did say that she was having a little bit of a headache. According to speech therapy patient did not do well with her swallow evaluation and is recommending NPO at this time. A Dobbhoff was ordered and placed into feeding was started. Patient denies chest pain, shortness of breath, nausea, vomiting, diarrhea, constipation. 09/19/21814 Patient is doing ok. She does not have any current complaints other than her mouth is dry. She talking however it is a whisper. She denies chest pain, shortness of breath, sweats, fevers or chills. She did say she was getting up to the chair, however, that takes a lot out of her. She is also complaining of a bit of abdominal pain. She does have the fecal management system in place. She is also draining urine from her ostomy tubes. 09/20/21 0730 Patient is lying in bed. Patient looks very tired. Patient stated that she has no sleep. Patient did have cough when I was in there and did say that she was really weak. She was pale and sweaty. She denies having chest pain, shortness of breath, nausea, vomiting, abdominal pain, sweats, fevers, chills. 09/21/21814 Patient is laying in bed. She seems little weak. She did say she was having some abdominal cramping and she seems to be short of breath intact neck however she does not state that she has. She denies chest pain she does say she is tired and she is not weak. Heart rate is still elevated the 120s along with blood p
--- NOTE | 2021-09-22 09:25 | PCSTNOTE ---
Please refer to the Bedside Swallow Evaluation in the EMR. Please note, silent aspiration cannot be ruled out at bedside.
[2021-09-22] MEDS: POTASSIUM CHLORIDE 20 MEQ PACKET (FOR LIQUID) 40 MEQ FEED TUBE (10:06)
[2021-09-22 11:23] LABS: Alveolar/Arterial O2 Gradient 45.8 mmHg; Base Excess ABG 1.7 mEq/l (+/-2.0); Fractional Inspired Oxygen 21 %; Oxygen Content ABG 16.3 %vol (16.0-22.0); Oxygen Saturation ABG 95.1 % (95.0-100.0); Oxyhemoglobin 92.6 % THb (90.0-100.0); PCO2 ABG 30.9 mmHg (35.0-45.0); PO2 ABG 66.9 mmHg (80.0-100.0); PO2 FiO2 Ratio Arterial Blood 3.19 %; Total Hemoglobin 12.5 g/dL (12.0-18.0)
[2021-09-22 11:24] LABS: Device ROOM AIR; Modified Allen's Test Pass; Site Drawn RIGHT RADIAL; pH ABG 7.509 (7.350-7.450)
--- NOTE | 2021-09-22 11:27 | P.PNNP_ITS ---
Progress Note: A&P Assessment and Plan (1) JERRY (acute kidney injury): Code(s): N17.9 - Acute kidney failure, unspecified Status: Acute Assessment and Plan: * due to ATN from: * hemorrhagic shock * contrast exposure * obstruction * evaluation to date: * renal ultrasound with evidence of obstruction - s/p nephrostomy tube placement * CPK mildly elevated (but not enough to affect kidney function) * urine electrolytes non-prerenal * Last dialysis was on Saturday. * Creatinine is stable at around 3.4. * Still making urine. * She has diarrhea as well. * Continue current therapy. * Hold off on dialysis today. * Patient still has some dyspnea. Chest x-ray is about the same as it has been. This could be residual COVID. She is not on oxygen. Blood gas shows hyperventilation. Will try diuretics. (2) Bilateral hydronephrosis: Code(s): N13.30 - Unspecified hydronephrosis Status: Acute Assessment and Plan: * as noted by renal ultrasound * CT scan (09/02/20) with moderate bilateral hydronephrosis and hydroureter secondary to mass effect from the pelvic hematoma, worsened from 08/30/21 * s/p bilateral CT-guided nephrostomy tube placement on 09/02/20 * management per Urology (3) Anemia associated with acute blood loss: Code(s): D62 - Acute posthemorrhagic anemia Status: Acute Assessment and Plan: * as noted by recent CT scan: * large hematoma in right pelvis extending into the peritoneum with two foci of active extravasation of contrast; hematomas in the rectus abdominis muscles, right worse than left * hemoglobin now 11.2 * Hold EPO (4) Hemorrhagic shock: Code(s): R57.8 - Other shock Status: Acute Assessment and Plan: * resolved * off pressors (5) Acute respiratory failure with hypoxia: Code(s): J96.01 - Acute respiratory failure with hypoxia Status: Acute Assessment and Plan: * resolved - extubated * due to cardiac arrest, COVID pneumonia, and pulmonary embolism (6) Pneumonia due to COVID-19 virus: Code(s): U07.1 - COVID-19; J12.82 - Pneumonia due to coronavirus disease 2019 Status: Acute Assessment and Plan: * positive by recent testing * on steroids (more so for shock than COVID at this time) * s/p convalscent plasma on 08/22/21 * s/p remdesivir but stopped due to elevated LFTs and renal dysfunction * Isolation has ?timed out ?. (7) Pulmonary embolism: Qualifiers: Pulmonary embolism type: unspecified Chronicity: acute Acute cor pulmonale presence: without acute cor pulmonale Qualified Code(s): I26.99 - Other pulmonary embolism without acute cor pulmonale Code(s): I26.99 - Other pulmonary embolism without acute cor pulmonale Status: Acute Assessment and Plan: * as diagnosed by CT angiogram of chest * off all anticoagulation due to #3 and #4 Will continue to follow. Subjective Date/time seen: 09/22/21 11:27 Interval history: Patient is awake. No chest pain. Respiratory rate is about the same. Oxygen saturations are fine on room air Exam Narrative: General: WD/WN female in NAD Heart: normal S1 and S2; no rub or gallop Lungs: Mildly coarse breath sounds bilaterally Abdomen: soft, nontender, nondistended; RLQ bruising noted Extremities: Trace to 1+ edema in the presacral area and no cyanosis Skin: no rash or subQ nodules Objective Data Vital Signs Vi
--- NOTE | 2021-09-22 11:27 | PM.PNNEP ---
Progress Note: A&P Assessment and Plan (1) JERRY (acute kidney injury): Code(s): N17.9 - Acute kidney failure, unspecified Status: Acute Assessment and Plan: due to ATN from: hemorrhagic shock contrast exposure obstruction evaluation to date: renal ultrasound with evidence of obstruction - s/p nephrostomy tube placement CPK mildly elevated (but not enough to affect kidney function) urine electrolytes non-prerenal Last dialysis was on Saturday. Creatinine is stable at around 3.4. Still making urine. She has diarrhea as well. Continue current therapy. Hold off on dialysis today. Patient still has some dyspnea. Chest x-ray is about the same as it has been. This could be residual COVID. She is not on oxygen. Blood gas shows hyperventilation. Will try diuretics. (2) Bilateral hydronephrosis: Code(s): N13.30 - Unspecified hydronephrosis Status: Acute Assessment and Plan: as noted by renal ultrasound CT scan (09/02/20) with moderate bilateral hydronephrosis and hydroureter secondary to mass effect from the pelvic hematoma, worsened from 08/30/21 s/[address]-guided nephrostomy tube placement on 09/02/20 management per Urology (3) Anemia associated with acute blood loss: Code(s): D62 - Acute posthemorrhagic anemia Status: Acute Assessment and Plan: as noted by recent CT scan: large hematoma in right pelvis extending into the peritoneum with two foci of active extravasation of contrast; hematomas in the rectus abdominis muscles, right worse than left hemoglobin now 11.2 Hold EPO (4) Hemorrhagic shock: Code(s): R57.8 - Other shock Status: Acute Assessment and Plan: resolved off pressors (5) Acute respiratory failure with hypoxia: Code(s): J96.01 - Acute respiratory failure with hypoxia Status: Acute Assessment and Plan: resolved - extubated due to cardiac arrest, COVID pneumonia, and pulmonary embolism (6) Pneumonia due to COVID-19 virus: Code(s): U07.1 - COVID-19; J12.82 - Pneumonia due to coronavirus disease 2019 Status: Acute Assessment and Plan: positive by recent testing on steroids (more so for shock than COVID at this time) s/p convalscent plasma on 08/22/21 s/p remdesivir but stopped due to elevated LFTs and renal dysfunction Isolation has ?timed out ?. (7) Pulmonary embolism: Qualifiers: Pulmonary embolism type: unspecified Chronicity: acute Acute cor pulmonale presence: without acute cor pulmonale Qualified Code(s): I26.99 - Other pulmonary embolism without acute cor pulmonale Code(s): I26.99 - Other pulmonary embolism without acute cor pulmonale Status: Acute Assessment and Plan: as diagnosed by CT angiogram of chest off all anticoagulation due to #3 and #4 Will continue to follow. Subjective Date/time seen: 09/22/21 11:27 Interval history: Patient is awake. No chest pain. Respiratory rate is about the same. Oxygen saturations are fine on room air Exam Narrative: General: WD/WN female in NAD Heart: normal S1 and S2; no rub or gallop Lungs: Mildly coarse breath sounds bilaterally Abdomen: soft, nontender, nondistended; RLQ bruising noted Extremities: Trace to 1+ edema in the presacral area and no cyanosis Skin: no rash or subQ nodules Objective Data Vital Signs Vital Signs: Vital Signs - 24 hr 09/21/21 12:00 09/21/21 15:18 09/21/21 16:00 Temperature 36.8 C 37.3 C Pulse Rate 124 H 120 H 94 Respiratory Rate 26 H 28 H Blood Pressure 149/86 H 125/79 Pulse Oximetry 94 97 09/21/21 20:00 09/21/21 23:29 09/22/21 00:00 Temperature 36.9 C 36.4 C L Pulse Rate 114 H 113 H 122 H Respiratory Rate 58 H 20 20 Blood Pressure 149/87 H 140/81 Pulse Oximetry 93 98 98 09/22/21 03:54 09/22/21 04:00 09/22/21 08:00 Temperature 37.2 C 37.3 C Pulse Rate 119 H 119 H 125 H Res
[2021-09-22] MEDS: BUMETANIDE INJ 2.5 MG/10 ML VIAL 2 MG IV PUSH ×2 (12:05→17:51)
--- NOTE | 2021-09-22 12:05 | PM.CNCAR ---
Assessment and Plan Additional Plan This is a 55-year-old lady who has been in the hospital for over a month now starting with COVID pneumonia and developing multitude of complications as described above. She starting yesterday is noted to have paroxysms of atrial fib with RVR that are self-limited and asymptomatic. Some of these are very rapid with heart rates in excess of 200. No prior history of heart disease according to the records. There is a multitude of reasons for this that are delineated in the chart and the note above. This time I am going to recommend starting her on some metoprolol. I will order metoprolol q.12 hours through her Dobbhoff tube. As stated in many notes she is not a candidate for systemic anticoagulation for obvious reasons. I will have Cardiology perform an echocardiogram for these reasons today as well. Thank you for asking me to see this lady in consultation and participate in this challenging case. Delano Spence MD [facility] History of Present Illness History of Present Illness Consult date/time: 09/22/21 12:05 Reason For Visit: Covid pneumonia/hypoxia Narrative: This is a unfortunate 55-year-old white female I am seeing at the request of the hospitalist service today because of atrial tachycardia. She is not capable of providing much history she is alert but semi responsive. The patient will nod her head appropriately and answer questions but otherwise is not communicative. She has been in the hospital for over a month now initially coming into the hospital on 08/21/2021 with shortness of breath dyspnea and COVID pneumonia. Obviously given the length of her hospitalization she has had a complicated course. She has had a long time in the ICU and in the course of this event developed a pelvic and abdominal, extraperitoneal hematoma with findings of hemorrhagic shock in the need of transfusion of significant amount of packed red blood cells. All of this occurred several weeks ago. As a result of the hematoma she had developed bilateral hydronephrosis and has nephrostomy tubes in place. She developed acute renal failure and did require some hemodialysis. Currently her nephrology consulted is hopeful that renal recovery will occur and she is not being regularly dialyzed. Complicating all this she did develop a pulmonary embolism documented by chest CTA on . Obviously she cannot be anticoagulated. She is currently in the IMU on telemetry with telemetry strips since admission showing primarily sinus tachycardia. Starting apparently yesterday there are episodes of extreme atrial tachycardia that occur and self-limited fashion but which have prompted consultation for me to see her today. Review of the rhythm strips appear to be most consistent with paroxysms of atrial fibrillation with rapid ventricular response. She has not received any medication to treat this as of now. The nursing staff indicates she is able to receive tube feeding through a Dobbhoff tube as well as medication through the Dobbhoff. The patient in this setting is being seen in consultation. Review of Systems Review of Systems: ROS unobtainable: Yes unobtainable due to medical condition and unobtainable due to mental status PMF Past Medical History Medical History BMI 35.0-35.9,adult Chest wall deformity Dysphagia Elevated glucose Elevated liver enzymes Epigastric pain Obesity Onychomycosis Plantar fasciitis of left foot Surgical History Surgical History H/O arthroscopy of knee 2012, right knee 2009? left knee H/O shoulder surgery right shoulder, 2019 H/O: section Family History Family History Father Hypertension Family history of heart disease in male family member before age 55 Sibling Hypertension Cerebrovascular accident
--- NOTE | 2021-09-22 12:14 | PCNFU ---
Nutrition Follow-Up Complete: Inadequate Oral Intake as related to mechanical vent as evidenced by NPO. Goal: Meet estimanted nutritional needs Pt is progressing towards goal Pt current nutrition is Nepro running at 45mL/hr over 22 hours Last recorded weight is 96.7 kg. Bowel Motility: FMS Labs Reviewed: hgb 11.2, mg 2.4, Cl 115, Na 157, K 3.2, GFR 14, BUN 87, Glu 137 Meds Noted: No meds reported at this time Skin: coccyx skin tear, perianal skin tear Additional Notes: Pt remains on Dobbhoff feedings of Nepro running at goal rate of 45mL/hr over 22 hours providing 1782kcal, 80g of protein, and 719mL, meeting 102% of estimated kcal needs and 100% of estimated protein needs. Per EMR, pt is tolerating tube feeding and rate. Free water flush 30mL Q 4 hours. Banatrol Plus given Q 6 hours via tube for stool bulking. Agree with diet orders at this time. Will continue to follow. Will monitor every Saturday and Saturday.
[2021-09-22 13:15] LABS: Glucose Point of Care 118 mg/dl (65-105)
[2021-09-22] MEDS: METOPROLOL TARTRATE 50 MG TAB PO (13:43)
--- NOTE | 2021-09-22 13:51 | WPDGICN ---
Assessment and Plan Assessment and plan (1) Dysphagia: Code(s): R13.10 - Dysphagia, unspecified Status: Acute Assessment and Plan: Patient has been unable to swallow adequately. She has failed several modified barium swallow studies. Partially this is related to her altered mental status and lethargy. Potentially related to prolonged intubation. Peg tube has been requested. At this time with her tachypnea comorbid diseases this will be deferred and re-evaluated early next week. I discussed this with Hever Philip PA with the hospitalist service who agrees. (2) Encephalopathy: Code(s): G93.40 - Encephalopathy, unspecified Status: Acute Assessment and Plan: Patient appears to have altered mental status. She is unable to speak potentially because of prolonged intubation. Appears somewhat lethargic today. (3) Pneumonia due to COVID-19 virus: Code(s): U07.1 - COVID-19; J12.82 - Pneumonia due to coronavirus disease 2019 Status: Acute Assessment and Plan: Patient admitted the hospital initially with pneumonia related to COVID infection. She continues to have infiltrates on her x-ray. It appears that because of the time that COVID infection has felt to have time doubt. She appears to have continued respiratory difficulties manifested by her tachypnea. This will limit placement of gastrostomy tube at present will re-evaluate next week. (4) Bilateral hydronephrosis: Code(s): N13.30 - Unspecified hydronephrosis Status: Acute Assessment and Plan: Patient's hematoma caused ureteral obstruction bilateral hydronephrosis has been treated by external nephrostomy tubes. Currently followed by urology service as well as renal service because of concomitant renal insufficiency. Dialysis been used intermittently. (5) Rectus sheath hematoma: Qualifiers: Encounter type: subsequent encounter Qualified Code(s): S30.1XXD - Contusion of abdominal wall, subsequent encounter Code(s): S30.1XXA - Contusion of abdominal wall, initial encounter Status: Acute Assessment and Plan: Rectal sheath hematoma not evident on exam today. Likely this is subsided. Potentially could inhibit placement of PEG tube although as it resolved so flea this wall be in the way. (6) Pulmonary embolism: Qualifiers: Pulmonary embolism type: unspecified Chronicity: acute Acute cor pulmonale presence: without acute cor pulmonale Qualified Code(s): I26.99 - Other pulmonary embolism without acute cor pulmonale Code(s): I26.99 - Other pulmonary embolism without acute cor pulmonale Status: Acute Assessment and Plan: Patient with PE. Anticoagulation is not been feasible given her hematoma and other comorbid processes. (7) Adult BMI 33.0-33.9 kg/sq m: Code(s): Z68.33 - Body mass index [BMI] 33.0-33.9, adult Status: Acute GI Consult Note Consult date/time: 09/22/21 13:51 HPI: Arielle Zuleta is a 55 year old female I am asked to see for nutritional support. patient is unable to add any history at this point patient admitted to the hospital 1 month ago with respiratory distress was found to have a COVID pneumonia. Required intubation for quite some time. Patient has had a complicated course subsequently. Patient developed a pulmonary embolus required anticoagulation. Subsequently developed an intra-abdominal hematoma in the left lower quadrant of the abdomen. She subsequently developed bilateral hydronephrosis required external nephrostomy tubes. She has had acute renal insufficiency requiring dialysis. Her creatinine remains 3 and half and dialysis has been given intermittently at this stage. Nephrology continues to follow her. Anticoagulation has subsequently been held. She has bouts of atrial fibrillation with a fast ventricular response. No anticoagulation anticipated because of her previous complicated course. She cu
--- NOTE | 2021-09-22 14:02 | PCOTNOTE ---
Pt is not appropriate to be seen today for occupational therapy tx per RN. Will continue per POC duration/frequency tomorrow.
[2021-09-22] MEDS: racEPINEPHrine 2.25% NEBU SOLN 0.5 ML VIAL.NEB INHALATION (14:17)
--- NOTE | 2021-09-22 14:48 | WPDPROCEDUR ---
Procedures Intubation Intubation Date: 09/22/21 Intubation Time: 14:33 A pre-procedural Time-Out was completed immediately before starting the procedure and confirmed: Patient Identification, Site, Procedure, Patient Position and the Availability of Requisite Equipment: Yes Sedative: etomidate Paralytic: rocuronium Laryngoscope: fiber optic video scope Assist device used: fiber optic device ET tube size: 7.5 Tube secured depth (cm): 22 Tube secured location: lips Tube placement confirmation: visualized tube passing through cords, equal breath sounds bilaterally, no breath sounds over epigastrium and confirmation by capnometry Patient tolerated procedure: well and no complications Intubation complications: none
--- NOTE | 2021-09-22 14:51 | WPDINTPN ---
Progress Note: A&P Assessment and Plan (1) Acute respiratory failure with hypoxia: Code(s): J96.01 - Acute respiratory failure with hypoxia Status: Acute Assessment and Plan: Acute respiratory failure likely related to pneumonia, edema, possible PE as patient had atrial fibrillation RVR and has a history of PE recently Chest x-ray showed bilateral airspace disease which may represent pneumonia or edema -continue CMV mode of ventilation, 100% FiO2 and peep of 5. Patient with 100% O2 sats -weight post intubation ABGs, will wean FiO2 after it has resulted -continue bronchodilators -continue low tidal volume strategy to prevent volume trauma -sedated with fentanyl and Versed infusion, maintain RASS of 0 to -2 (2) Sepsis: Code(s): A41.9 - Sepsis, unspecified organism Status: Acute Assessment and Plan: Tachycardia, pneumonia, acute respiratory failure -obtain blood, urine and sputum cx given cxr findings will start Cefepime and Vancomycin (3) JERRY (acute kidney injury): Code(s): N17.9 - Acute kidney failure, unspecified Status: Acute Assessment and Plan: Patient id kidney injury after diameter hematoma compressing on ureters bilaterally. Patient required dialysis catheter placement in started on dialysis. -BUN creatinine still remain elevated patient is making urine -continue to monitor urine output, renal function electrolytes -appreciate nephrology following the patient (4) Anemia associated with acute blood loss: Code(s): D62 - Acute posthemorrhagic anemia Status: Acute Assessment and Plan: RESOLVED (5) Pneumonia due to 2019-nCoV: Code(s): U07.1 - COVID-19; J12.82 - Pneumonia due to coronavirus disease 2019 Status: Acute Assessment and Plan: Resolved (6) Pulmonary embolism: Qualifiers: Pulmonary embolism type: unspecified Chronicity: acute Acute cor pulmonale presence: without acute cor pulmonale Qualified Code(s): I26.99 - Other pulmonary embolism without acute cor pulmonale Code(s): I26.99 - Other pulmonary embolism without acute cor pulmonale Status: Acute Assessment and Plan: Currently off of anticoagulation secondary to hemorrhagic shock. Not a candidate for anticoagulation at this time Will recheck venous Dopplers of the lower extremities and V/Q scan to rule out any kind of PE (7) Paroxysmal A-fib: Code(s): I48.0 - Paroxysmal atrial fibrillation Status: Acute Assessment and Plan: Patient was in AFib RVR does have a self-limited. Currently in sinus rhythm with tachycardia -cardiology following the patient -continue metoprolol -patient is not a candidate for anticoagulation for reasons mentioned above -cardiology has ordered echocardiogram Additional Plan Code status: Full code Critical care time spent: 45 minutes This dictation may have been done utilizing a voice recognition system. Attempts have been made to correct errors. However, there may be uncorrected grammatical, spelling, and recognition errors present. Due to a high probability of clinically significant, life threatening deterioration, the patient required my highest level of preparedness to intervene emergently and I personally spent this critical care time directly and personally managing the patient. This critical care time included obtaining a history; examining the patient; pulse oximetry; ordering and review of studies; arranging urgent treatment with development of a management plan; evaluation of patient's response to treatment; frequent reassessment; and discussions with other providers. It was exclusive of separately billable procedures and treating other patients and teaching time. Please see Assessment and Plan section and the rest of the note for further information on patient assessment and treatment Subjective Date/time seen: 09/22/21 14:51 Interval history: 55-year-old female with p
--- NOTE | 2021-09-22 15:03 | PC.NURSE ---
This patient, Arielle Zuleta, was transferred to ICU-10 on 09/22/21 at 1415. Personal belongings sent with patient. Report given to Fauzia Perdomo RN. Appropriate documentation sent with patient.
[2021-09-22] MEDS: FENTANYL 2,500MCG/NS250ML(*CRX 2,500 MCG/250 ML BAG 10 MCG IV CONT (15:12)
[2021-09-22] MEDS: MIDAZOLAM 100MG/NS 100ML(*CRX) 100 MG/100 ML BAG IV CONT (15:13)
--- NOTE | 2021-09-22 15:19 | PC.NURSE ---
This patient, Arielle Zuleta, was received from [[id number]] on 09/22/21 at 1422. Bedside report received from Fauzia Hawk RN. Dr. Rivera and respiratory at bedside to intubate. Pt. stable upon transfer.
--- NOTE | 2021-09-22 15:46 | PC.NURSE ---
Notified Hever Valentine NP via telephone of my assessment of patient via telephone at 0936 on 09/22/2021. Patient was tachypneic and having intermittent runs of SVT. I called TAKE OUT WAITER again at 1108 to notify him of patient's increasing frequency of SVT runs, increasing respirations per minute and labored respirations. I expressed concern of patient's condition at this time and asked to obtain ABG's. New order for STAT ABG's was provided. I notified Hever Valentine TAKE OUT WAITER of patient's critical pH, as well as patient's other pertinent ABG results at 1126. TAKE OUT WAITER told me to notify via telephone since they had discussed possible diuresis. I called and was given orders to administer 2mg of Bumex now and again in 6 hours (1800).
--- NOTE | 2021-09-22 15:59 | PCPTNOTE ---
Patient is not appropriate for treatment at this time per OT due to change in medical status.
[2021-09-22 16:07] LABS: Base Excess ABG 2.8 mEq/l (+/-2.0); Carboxyhemoglobin 0.3 % THb (0-2.0); Fractional Inspired Oxygen 100 %; HCO3 ABG 25.1 mEq/l (22.0-26.0); Methemoglobin ABG 0.4 %THb (0-1.5); Oxygen Content ABG 19.3 %vol (16.0-22.0); Oxygen Saturation ABG 99.9 % (95.0-100.0); Oxyhemoglobin 98.2 % THb (90.0-100.0); PCO2 ABG 31.4 mmHg (35.0-45.0); PO2 ABG 439.6 mmHg (80.0-100.0); Reduced Hemoglobin 1.1 %THb (0-5.0); Total Hemoglobin 13.1 g/dL (12.0-18.0)
[2021-09-22 16:10] LABS: Modified Allen's Test Pass; Site Drawn LEFT RADIAL
[2021-09-22 16:11] LABS: Device VENTILATOR
[2021-09-22 16:12] LABS: Arterial Blood Gas PEEP 5 cmH2O; Arterial Blood Gas Tidal Volume 400 ml; Arterial Blood Gas Vent Mode CMV; Arterial Blood Gas Ventilator rate 20 /MIN
[2021-09-22] MEDS: MIDAZOLAM HCL (*CRX) 2 MG/2 ML VIAL 4 MG IV PUSH (16:21)
[2021-09-22] MEDS: PROPOFOL IV EMULSION 100 ML 8.7 MG IV CONT (16:23)
[2021-09-22] MEDS: CENTRAL LINE FLUSH 10 ML IV PUSH (17:25)
[2021-09-22] MEDS: EPOETIN ALFA-EPBX 10,000 UNITS/ML VIAL 10000 UNITS SUB-Q (17:29)
[2021-09-22 17:47] LABS: Glucose Point of Care 136 mg/dl (65-105)
[2021-09-22] MEDS: IPRATROPIUM BR 0.02% INH SOLN 0.5 MG/2.5 ML VIAL INHALATION (20:05)
[2021-09-22] MEDS: LEVALBUTEROL NEB 1.25 MG/3 ML 0.63 MG INHALATION (20:05)
[2021-09-22] MEDS: DORNASE ALFA INH SOLN 1 MG/ML 2.5 ML AMP 2.5 MG INHALATION (20:05)
[2021-09-22] MEDS: MINERAL OIL/WHITE PETROLATUM OINTMENT 1 APPLIC EACH EYE (21:44)
[2021-09-22] MEDS: dexmedeTOMIDine 400 MCG/100 ML 400 MCG/100 ML BAG IV CONT (21:47)
[2021-09-23] VITALS (49 sets, daily range): BP systolic 62–164; BP diastolic 49–115; PULSE 81–139; RESP 16–25; TEMP 36.3–37.4; O2SAT 87–100
[2021-09-23] MEDS: NOREPINEPHRINE 8 MG/D5W 250 ML 8 MG/250 ML BAG 9.38 MG IV CONT (01:00)
[2021-09-23 01:50] LABS: Glucose Point of Care 116 mg/dl (65-105)
[2021-09-23] MEDS: LEVALBUTEROL NEB 1.25 MG/3 ML 0.63 MG INHALATION ×4 (01:56→20:40)
[2021-09-23] MEDS: IPRATROPIUM BR 0.02% INH SOLN 0.5 MG/2.5 ML VIAL INHALATION ×4 (01:56→20:40)
[2021-09-23 05:08] LABS: Alveolar/Arterial O2 Gradient 23.6 mmHg; Base Excess ABG -0.1 mEq/l (+/-2.0); Oxygen Content ABG 17.4 %vol (16.0-22.0); Total Hemoglobin 12.5 g/dL (12.0-18.0)
[2021-09-23 05:09] LABS: Carboxyhemoglobin 0.2 % THb (0-2.0); Device VENTILATOR; Fractional Inspired Oxygen 30 %; Methemoglobin ABG 0.4 %THb (0-1.5); Modified Allen's Test Pass; Reduced Hemoglobin 1.7 %THb (0-5.0); Site Drawn RIGHT RADIAL
[2021-09-23 05:10] LABS: Arterial Blood Gas PEEP 5 cmH2O; Arterial Blood Gas Tidal Volume 400 ml; Arterial Blood Gas Vent Mode CMV; Arterial Blood Gas Ventilator rate 16 /MIN
[2021-09-23 06:17] LABS: Basophils Absolute Auto 0.2 K/mm3 (0.0-0.1); Basophils Percent Auto 1.3 % (0.2-1.2); Eosinophils Absolute Auto 0.7 K/mm3 (0-0.3); Eosinophils Percent Auto 4.4 % (0-4.4); Hematocrit 36.9 % (37.0-47.0); Hemoglobin 10.8 g/dL (12.0-15.0); Immature Granulocyte Absolute 0.32 K/mm3 (0.00-0.031); Lymphocytes Absolute Auto 2.16 K/mm3 (0.9-3.2); Lymphocytes Percent Auto 13.7 % (18.3-44.2); Mean Corpuscular HGB Conc 29.3 g/dl (32-36); Mean Corpuscular Hemoglobin 29.9 pg (26-34); Mean Corpuscular Volume 102.2 fl (80-100); Mean Platelet Volume 11.1 fl (7.4-10.4); Monocytes Absolute Auto 1.7 K/mm3 (0.1-0.6); Monocytes Percent Auto 11.1 % (2.6-8.5); Neutrophils Absolute Auto 10.6 K/mm3 (1.3-6.7); Neutrophils Percent Auto 67.5 % (45.5-73.1); Nucleated Red Blood Cells Perc 0.2 % (0.0-0.2); Platelet Count Result 461 k/mm3 (150-375); Red Blood Count 3.61 M/mm3 (4.2-5.4); Red Cell Distribution Width 17.3 % (11.5-14.5); White Blood Count 15.7 K/mm3 (4.5-10.0)
[2021-09-23 06:27] LABS: Lactic Acid Reflex 1.3 mmol/L (0.7-2.1)
[2021-09-23 06:36] LABS: Alanine Aminotransferase 24 U/L (4-35); Alkaline Phosphatase 134 U/L (38-126); Anion Gap 11 mmol/L (8-16); Aspartate Amino Transferase 34 U/L (14-36); Blood Urea Nitrogen 102 mg/dL (7-17); CRP 4.2 mg/dL (<1.0); Calcium 9.7 mg/dL (8.4-10.2); Carbon Dioxide 27 mmol/L (22-30); Chloride 117 mmol/L (98-107); Estimated CRCL calculation 17 ml/min; Estimated Glomerular Filt Rate 11; Glucose 166 mg/dL (65-110); Magnesium 2.3 mg/dL (1.6-2.3); Phosphorus 5.8 mg/dL (2.5-4.5); Potassium 3.5 mmol/L (3.4-5.0); Sodium 155 mmol/L (137-145)
[2021-09-23 06:50] LABS: Anisocytosis 1+ (NORMAL); Ovalocytes 1+ (NORMAL); Platelet Estimate Adequate (Adequate)
[2021-09-23] MEDS: FENTANYL 2,500MCG/NS250ML(*CRX 2,500 MCG/250 ML BAG 20 MCG IV CONT ×2 (07:14→19:12)
[2021-09-23] MEDS: MINERAL OIL/WHITE PETROLATUM OINTMENT 1 APPLIC EACH EYE ×2 (08:02→20:29)
[2021-09-23] MEDS: DORNASE ALFA INH SOLN 1 MG/ML 2.5 ML AMP 2.5 MG INHALATION ×2 (08:36→20:39)
--- NOTE | 2021-09-23 08:58 | P.PNNP_ITS ---
Progress Note: A&P Assessment and Plan (1) JERRY (acute kidney injury): Code(s): N17.9 - Acute kidney failure, unspecified Status: Acute Assessment and Plan: * due to ATN from: * hemorrhagic shock * contrast exposure * obstruction * evaluation to date: * renal ultrasound with evidence of obstruction - s/p nephrostomy tube placement * CPK mildly elevated (but not enough to affect kidney function) * urine electrolytes non-prerenal * Last dialysis was on Saturday. * Creatinine has been stable at around 3.4. However today it is up to 4.1 * Still making urine. * She has diarrhea as well. * Her respiratory deterioration may be due to pulmonary emboli. The recent onset atrial fibrillation is consistent with this. We cannot give anticoagulants because of the very high risk of bleeding a again. Dr. Cain has been consulted to consider a filter. * The patient's BUN and creatinine are higher now. This is likely due to intravascular volume depletion and hypotension. Her sodium is high as well consistent with intravascular volume depletion. * I do not think fluid overload is the issue because the chest x-ray has not changed at all. * At this point, however, the BUN and creatinine are higher and so we should go ahead and do another dialysis treatment at some point. She needs a filter though so we will see what happens with scheduling. * Discussed with Dr. Rivera at length. (2) Bilateral hydronephrosis: Code(s): N13.30 - Unspecified hydronephrosis Status: Acute Assessment and Plan: * as noted by renal ultrasound * CT scan (09/02/20) with moderate bilateral hydronephrosis and hydroureter secondary to mass effect from the pelvic hematoma, worsened from 08/30/21 * s/p bilateral CT-guided nephrostomy tube placement on 09/02/20 * management per Urology (3) Anemia associated with acute blood loss: Code(s): D62 - Acute posthemorrhagic anemia Status: Deleted Assessment and Plan: * as noted by recent CT scan: * large hematoma in right pelvis extending into the peritoneum with two foci of active extravasation of contrast; hematomas in the rectus abdominis muscles, right worse than left * hemoglobin now 10.8 will observe and decide about epo. (4) Hemorrhagic shock: Code(s): R57.8 - Other shock Status: Deleted Assessment and Plan: * resolved * off pressors (5) Acute respiratory failure with hypoxia: Code(s): J96.01 - Acute respiratory failure with hypoxia Status: Acute Assessment and Plan: * resolved - extubated * due to cardiac arrest, COVID pneumonia, and pulmonary embolism (6) Pneumonia due to COVID-19 virus: Code(s): U07.1 - COVID-19; J12.82 - Pneumonia due to coronavirus disease 2018 Status: Acute Assessment and Plan: * positive by recent testing * on steroids (more so for shock than COVID at this time) * s/p convalscent plasma on 08/22/21 * s/p remdesivir but stopped due to elevated LFTs and renal dysfunction * Isolation has ?timed out ?. (7) Pulmonary embolism: Qualifiers: Pulmonary embolism type: unspecified Chronicity: acute Acute cor pulmonale presence: without acute cor pulmonale Qualified Code(s): I26.99 - Other pulmonary embolism without acute cor pulmonale Code(s): I26.99 - Other pulmonary embolism without acute cor pulmonale Status: Acute Assessment and Plan: * as diagnosed by CT angiogram of chest * off all anticoagulation due to #3 and #4 Will continue to follow.
--- NOTE | 2021-09-23 08:58 | PM.PNNEP ---
Progress Note: A&P Assessment and Plan (1) JERRY (acute kidney injury): Code(s): N17.9 - Acute kidney failure, unspecified Status: Acute Assessment and Plan: due to ATN from: hemorrhagic shock contrast exposure obstruction evaluation to date: renal ultrasound with evidence of obstruction - s/p nephrostomy tube placement CPK mildly elevated (but not enough to affect kidney function) urine electrolytes non-prerenal Last dialysis was on Saturday. Creatinine has been stable at around 3.4. However today it is up to 4.1 Still making urine. She has diarrhea as well. Her respiratory deterioration may be due to pulmonary emboli. The recent onset atrial fibrillation is consistent with this. We cannot give anticoagulants because of the very high risk of bleeding a again. Dr. Cain has been consulted to consider a filter. The patient's BUN and creatinine are higher now. This is likely due to intravascular volume depletion and hypotension. Her sodium is high as well consistent with intravascular volume depletion. I do not think fluid overload is the issue because the chest x-ray has not changed at all. At this point, however, the BUN and creatinine are higher and so we should go ahead and do another dialysis treatment at some point. She needs a filter though so we will see what happens with scheduling. Discussed with Dr. Rivera at length. (2) Bilateral hydronephrosis: Code(s): N13.30 - Unspecified hydronephrosis Status: Acute Assessment and Plan: as noted by renal ultrasound CT scan (09/02/20) with moderate bilateral hydronephrosis and hydroureter secondary to mass effect from the pelvic hematoma, worsened from 08/30/21 s/[address]-guided nephrostomy tube placement on 09/02/20 management per Urology (3) Anemia associated with acute blood loss: Code(s): D62 - Acute posthemorrhagic anemia Status: Deleted Assessment and Plan: as noted by recent CT scan: large hematoma in right pelvis extending into the peritoneum with two foci of active extravasation of contrast; hematomas in the rectus abdominis muscles, right worse than left hemoglobin now 10.8 will observe and decide about epo. (4) Hemorrhagic shock: Code(s): R57.8 - Other shock Status: Deleted Assessment and Plan: resolved off pressors (5) Acute respiratory failure with hypoxia: Code(s): J96.01 - Acute respiratory failure with hypoxia Status: Acute Assessment and Plan: resolved - extubated due to cardiac arrest, COVID pneumonia, and pulmonary embolism (6) Pneumonia due to COVID-19 virus: Code(s): U07.1 - COVID-19; J12.82 - Pneumonia due to coronavirus disease 2019 Status: Acute Assessment and Plan: positive by recent testing on steroids (more so for shock than COVID at this time) s/p convalscent plasma on 08/22/21 s/p remdesivir but stopped due to elevated LFTs and renal dysfunction Isolation has ?timed out ?. (7) Pulmonary embolism: Qualifiers: Pulmonary embolism type: unspecified Chronicity: acute Acute cor pulmonale presence: without acute cor pulmonale Qualified Code(s): I26.99 - Other pulmonary embolism without acute cor pulmonale Code(s): I26.99 - Other pulmonary embolism without acute cor pulmonale Status: Acute Assessment and Plan: as diagnosed by CT angiogram of chest off all anticoagulation due to #3 and #4 Will continue to follow. Subjective Date/time seen: 09/23/21 08:58 Interval history: Patient is now in ICU on sedatives and pressors. Yesterday the patient developed more dyspnea. Blood gases showed respiratory alkalosis but no hypoxia. Chest x-ray showed infiltrates but these have been the same for a long time. She was given diuretics but this did not help her respiratory distress. Her respiratory distress worsened and she ended up intubated. Her blood pressur
[2021-09-23] MEDS: SODIUM CHLORIDE 0.9% IV 1,000 ML 100 ML IV CONT (09:19)
[2021-09-23] MEDS: MIDAZOLAM 100MG/NS 100ML(*CRX) 100 MG/100 ML BAG 6 MG IV CONT (09:19)
--- NOTE | 2021-09-23 10:39 | WPDINTPN ---
Progress Note: A&P Assessment and Plan (1) Acute DVT (deep venous thrombosis): Code(s): I82.409 - Acute embolism and thrombosis of unspecified deep veins of unspecified lower extremity Status: Acute Assessment and Plan: 09/22/2021 venous Dopplers: Acute deep vein thrombosis involving left common femoral vein. Some veins were not well evaluated due to patient motion. -earlier this admission patient had DVT and was started on anticoagulation and developed a large abdominal hematoma with hemorrhagic shock requiring multiple units of blood products. -currently she is not a candidate for anticoagulation given her recent hemorrhage and hemorrhagic shock -consult surgery for IVC filter placement (2) Acute respiratory failure with hypoxia: Code(s): J96.01 - Acute respiratory failure with hypoxia Status: Acute Assessment and Plan: Acute respiratory failure likely related to pneumonia, edema, possible PE as patient had atrial fibrillation RVR and has a history of PE recently Chest x-ray showed bilateral airspace disease which may represent pneumonia or edema -continue CMV mode of ventilation, 30% FiO2 and peep of 5. -continue bronchodilators -continue low tidal volume strategy to prevent volume trauma -sedated with fentanyl and Versed infusion, maintain RASS of 0 to -2 (3) Sepsis: Code(s): A41.9 - Sepsis, unspecified organism Status: Deleted Assessment and Plan: Tachycardia, pneumonia, acute respiratory failure -obtain blood, urine and sputum cx -pending given cxr findings continue Cefepime and Vancomycin (4) JERRY (acute kidney injury): Code(s): N17.9 - Acute kidney failure, unspecified Status: Acute Assessment and Plan: Patient id kidney injury after diameter hematoma compressing on ureters bilaterally. Patient required dialysis catheter placement in started on dialysis. -BUN creatinine still remain elevated patient is making urine -continue to monitor urine output, renal function electrolytes -appreciate nephrology following the patient -discuss with Nephrology patient to get dialyzed today (5) Anemia associated with acute blood loss: Code(s): D62 - Acute posthemorrhagic anemia Status: Deleted Assessment and Plan: RESOLVED (6) Pneumonia due to 2019-nCoV: Code(s): U07.1 - COVID-19; J12.82 - Pneumonia due to coronavirus disease 2019 Status: Deleted Assessment and Plan: Resolved (7) Pulmonary embolism: Qualifiers: Acute cor pulmonale presence: without acute cor pulmonale Chronicity: acute Pulmonary embolism type: unspecified Qualified Code(s): I26.99 - Other pulmonary embolism without acute cor pulmonale Code(s): I26.99 - Other pulmonary embolism without acute cor pulmonale Status: Acute Assessment and Plan: Currently off of anticoagulation secondary to hemorrhagic shock. Not a candidate for anticoagulation at this time Wean is Dopplers as above showed acute DVT in the left common femoral vein. -V/Q scan cannot be done in the hospital while patient is on the ventilator -patient's creatinine is 4.10, she is not a candidate for a CT angiogram to rule out PE as she continues to make urine. Giving her contrast would cause contrast induced nephropathy. Discussed with Nephrology and they agree (8) Paroxysmal A-fib: Code(s): I48.0 - Paroxysmal atrial fibrillation Status: Acute Assessment and Plan: Patient was in AFib RVR does have a self-limited. Currently in sinus rhythm with tachycardia -cardiology following the patient -continue metoprolol -patient is not a candidate for anticoagulation for reasons mentioned above -cardiology has ordered echocardiogram pending report Additional Plan Code status: Full code Critical care time spent: 33 minutes This dictation may have been done utilizing a voice recognition system. Attempts have been made to correct erro
[2021-09-23 12:38] LABS: Glucose Point of Care 123 mg/dl (65-105)
--- NOTE | 2021-09-23 13:14 | PM.CNGS ---
Assessment and Plan Assessment and plan (1) Acute DVT (deep venous thrombosis): Qualifiers: DVT location: lower extremity Affected thrombotic vein of extremity: femoral Laterality: left Qualified Code(s): I82.412 - Acute embolism and thrombosis of left femoral vein Code(s): I82.409 - Acute embolism and thrombosis of unspecified deep veins of unspecified lower extremity Status: Acute Assessment and Plan: I discussed the patient with our insurance underwriting assistant Dr. Rivera. IVC so filter could be placed however this would still leave the patient with a common femoral vein venous thrombosis that can propagate and likely cause chronic venous insufficiency. I would recommend anticoagulation but would be careful to start with slightly less than a therapeutic dose and gradually increased to a therapeutic dose of Lovenox. This would be renally dosed. If any sign of bleeding, this can be reversed and filter placed. I think there is very low risk of recreating hemorrhage from the previous bleeding source since we are over 2 weeks from the episode. (2) Rectus sheath hematoma: Qualifiers: Encounter type: subsequent encounter Qualified Code(s): S30.1XXD - Contusion of abdominal wall, subsequent encounter Code(s): S30.1XXA - Contusion of abdominal wall, initial encounter Status: Acute Assessment and Plan: Severe hemorrhage in early August with evidence of active bleed by CT scan with IV contrast. Patient could not be transferred for embolization which we do not have the facility for here. She eventually stopped but had significant bleeding particularly below the arcuate line with large pelvic hematoma and compression of the ureter requiring nephrostomy tube. Bleeding has been stopped for at least 2 weeks. Bleeding was most likely caused by coughing associated with COVID and pneumonia. Unlikely to rebleed with anticoagulation therapy. (3) Pneumonia due to COVID-19 virus: Code(s): U07.1 - COVID-19; J12.82 - Pneumonia due to coronavirus disease 2019 Status: Acute Assessment and Plan: Remains on mechanical ventilator although no longer on respiratory isolation. History of Present Illness Consult details Consult date: 09/23/21 Requesting physician: Sunshine Rivera MD Narrative: Patient is a 55-year-old woman who presented with COVID and respiratory failure. Three weeks ago she developed a significant retro rectus hemorrhage most likely from coughing and bleeding from branches of the inferior epigastric artery. This resulted in a large retroperitoneal pelvic hematoma. She had to have nephrostomy tube placed. She has had renal failure and is getting dialyzed. In early August she had venous Dopplers which did not show any evidence of DVT. Due to the bleeding she previously experienced, she has not been on any venous prophylaxis. Venous Dopplers yesterday showed a left common femoral DVT. I was asked to see the patient regarding resuming anticoagulation versus placement of IVC filter. Patient is sedated on mechanical ventilator at this time but is no longer on isolation for COVID. Review of Systems Review of Systems: ROS unobtainable: Yes unobtainable due to endotracheal tube PMFSH Past Medical History Medical History BMI 35.0-35.9,adult Chest wall deformity Dysphagia Elevated glucose Elevated liver enzymes Epigastric pain Obesity Onychomycosis Plantar fasciitis of left foot Surgical History Surgical History H/O arthroscopy of knee 2012, right knee 2009? left knee H/O shoulder surgery right shoulder, 2019 H/O: section Family History Family History Father Hypertension Family history of heart disease in male family member before age 55 Sibling Hypertension Cerebrovasc
--- NOTE | 2021-09-23 14:36 | PM.PNCARD ---
Progress Note: A&P Assessment and Plan (1) Paroxysmal A-fib: Code(s): I48.0 - Paroxysmal atrial fibrillation Status: Acute Assessment and Plan: no significant sustained recurrence of atrial fibrillation. Tolerating metoprolol thus far. Remains on Levophed difficult to up titrate further. Patient in sinus tachycardia exacerbated with agitation or stimulation. Continue present management for now. anticoagulation management as tolerated given very complicated clinical course with extensive hematoma, splenic infarct, DVT and pulmonary embolism. Patient at high risk for thromboembolic complications and bleeding risk. Patient is extremely complicated. (2) Tachycardia: Code(s): R00.0 - Tachycardia, unspecified Status: Acute Assessment and Plan: As above. Continue metoprolol Significant intravascular volume depletion will exacerbate tachyarrhythmia so need to be cautious in this regard. (3) Pneumonia due to COVID-19 virus: Code(s): U07.1 - COVID-19; J12.82 - Pneumonia due to coronavirus disease 2019 Status: Acute Assessment and Plan: Per critical care. (4) Acute respiratory failure with hypoxia: Code(s): J96.01 - Acute respiratory failure with hypoxia Status: Acute Assessment and Plan: Remains intubated on mechanical ventilatory support. Management per critical service. Remains on IV antibiotics. (5) JERRY (acute kidney injury): Code(s): N17.9 - Acute kidney failure, unspecified Status: Acute Assessment and Plan: Renal function worsening, 4.1 today with creatinine BUN over 100. Nephrology following, plans for hemodialysis. (6) Acute DVT (deep venous thrombosis): Qualifiers: DVT location: lower extremity Affected thrombotic vein of extremity: femoral Laterality: left Qualified Code(s): I82.412 - Acute embolism and thrombosis of left femoral vein Code(s): I82.409 - Acute embolism and thrombosis of unspecified deep veins of unspecified lower extremity Status: Acute Assessment and Plan: Anticoagulation as tolerated. Defer to Critical Care Service in this regard. Subjective Date/time seen: date of service:09/23/21 14:36 Follow-up for atrial fibrillation with RVR, COVID pneumonia patient remains intubated and sedated. She remains on pressor support with Levophed. Sinus tachycardia noted on telemetry brief SVT noted. No clear atrial fibrillation. Remains on metoprolol as well. Patient gets quite agitated exacerbating tachycardia. Patient not able to provide history or follow commands due to sedation and mechanical ventilatory support. Review of Systems Review of Systems: ROS unobtainable: Yes unobtainable due to medical condition and unobtainable due to mental status Exam Const: Other: sedated, intubated on mechanical ventilatory support, agitated with stimulation not following command. obese white female with Dobbhoff tube in place, urinary catheter and rectal catheter in place. HENMT: Mouth: Yes moist mucous membranes Eyes: Sclera: sclerae normal Neck: Neck: supple Other: obese neck No obvious JVD Resp: Effort & Inspection: normal respiratory effort Other: breath sounds diffusely diminished. Cardio: Rate: regular rate and tachycardic Rhythm: regular rhythm Other: No significant murmur or gallop Appreciated GI: Inspection: obesity Auscultation: normal bowel sounds Skin: General skin exam: normal color Neuro: Other: sedated, agitated Extrem: Other: No significant edema adequate distal pulses Psych: Appearance: other ( unable to assess due to sedation and intubation) Mental Status: other Objective Data Vital Signs Vital Signs: Vital Signs - 24 hr 09/22/21 15:12 09/22/21 16:00 09/22/21 16:24 Temperature Pulse Rate 127 H 118 H 101 H Respiratory Rate 20 16 16 Blood Pressure 125/90 Pulse Oximetry 97 09/22/21 17:30 09/22/21 17:44 09/22/21 17:
[2021-09-23] MEDS: PROPOFOL IV EMULSION 100 ML 2.9 MG IV CONT (15:39)
[2021-09-23] MEDS: ENOXAPARIN 100 MG/ML SYRINGE SUB-Q (15:49)
[2021-09-23] MEDS: AMIODARONE 150 MG/D5W 100 ML 150 MG/100 ML BAG 600 MG IV CONT (17:15)
--- NOTE | 2021-09-23 17:18 | ECG_ITS ---
Measurements Intervals [place] Rate: 133 P: 51 AR: 123 QRS: -40 QRSD: 88 T: 44 QT: 302 QTc: 450 Interpretive Statements SINUS TACHYCARDIA LEFT AXIS DEVIATION POOR R WAVE PROGRESSION, ANTERIOR LEADS MINIMAL Q WAVES- HIGH LATERAL LEADS ABNORMAL ECG Electronically Signed On 09-24-2021 16:16:32 PROTOTYPE MACHINE OPERATOR by Carter Walters D.O.
[2021-09-23] MEDS: AMIODARONE 360 MG/D5W 200 ML 360 MG/200 ML BAG 33.33 MG IV CONT (17:25)
[2021-09-23 18:14] LABS: Glucose Point of Care 171 mg/dl (65-105)
[2021-09-23 18:17] LABS: Sodium 144 mmol/L (137-145)
[2021-09-23] MEDS: NOREPINEPHRINE 8 MG/D5W 250 ML 8 MG/250 ML BAG 22.5 MG IV CONT (18:19)
[2021-09-23] MEDS: METOPROLOL TARTRATE 50 MG TAB PO (20:31)
[2021-09-23] MEDS: PROPOFOL IV EMULSION 100 ML 14.51 MG IV CONT (21:57)
[2021-09-23] MEDS: AMIODARONE 360 MG/D5W 200 ML 360 MG/200 ML BAG 16.67 MG IV CONT (22:53)
[2021-09-24] VITALS (55 sets, daily range): BP systolic 76–124; BP diastolic 60–84; PULSE 67–100; RESP 16–20; TEMP 36.8–37.2; O2SAT 99–100
[2021-09-24 00:37] LABS: Glucose Point of Care 135 mg/dl (65-105)
[2021-09-24] MEDS: LEVALBUTEROL NEB 1.25 MG/3 ML 0.63 MG INHALATION ×4 (02:32→19:31)
[2021-09-24] MEDS: MIDAZOLAM 100MG/NS 100ML(*CRX) 100 MG/100 ML BAG 6 MG IV CONT ×2 (03:47→19:57)
[2021-09-24] MEDS: NOREPINEPHRINE 8 MG/D5W 250 ML 8 MG/250 ML BAG 26.25 MG IV CONT (03:48)
[2021-09-24 04:50] LABS: Basophils Absolute Auto 0.2 K/mm3 (0.0-0.1); Basophils Percent Auto 1.3 % (0.2-1.2); Eosinophils Absolute Auto 0.8 K/mm3 (0-0.3); Eosinophils Percent Auto 4.9 % (0-4.4); Hematocrit 34.1 % (37.0-47.0); Hemoglobin 9.9 g/dL (12.0-15.0); Immature Granulocyte Absolute 0.69 K/mm3 (0.00-0.031); Immature Granulocyte Percent A 4.3 % (0-0.5); Lymphocytes Absolute Auto 2.86 K/mm3 (0.9-3.2); Lymphocytes Percent Auto 17.9 % (18.3-44.2); Mean Corpuscular Hemoglobin 29.2 pg (26-34); Mean Corpuscular Volume 100.6 fl (80-100); Mean Platelet Volume 11.4 fl (7.4-10.4); Monocytes Percent Auto 12.4 % (2.6-8.5); Neutrophils Absolute Auto 9.5 K/mm3 (1.3-6.7); Neutrophils Percent Auto 59.2 % (45.5-73.1); Nucleated Red Blood Cells Absolute Auto 0.1 K/mm3 (0.0-0.012); Nucleated Red Blood Cells Perc 0.4 % (0.0-0.2); Platelet Count Result 368 k/mm3 (150-375); Red Blood Count 3.39 M/mm3 (4.2-5.4); Red Cell Distribution Width 16.3 % (11.5-14.5)
[2021-09-24 04:59] LABS: Alveolar/Arterial O2 Gradient 74.1 mmHg; Carboxyhemoglobin 0.7 % THb (0-2.0); Fractional Inspired Oxygen 30 %; HCO3 ABG 23.9 mEq/l (22.0-26.0); Methemoglobin ABG 0.2 %THb (0-1.5); Oxygen Content ABG 15.4 %vol (16.0-22.0); Oxyhemoglobin 94.6 % THb (90.0-100.0); PCO2 ABG 45.5 mmHg (35.0-45.0); PO2 ABG 86.3 mmHg (80.0-100.0); PO2 FiO2 Ratio Arterial Blood 2.88 %; Reduced Hemoglobin 4.5 %THb (0-5.0); Total Hemoglobin 11.5 g/dL (12.0-18.0); pH ABG 7.339 (7.350-7.450)
[2021-09-24 05:00] LABS: Arterial Blood Gas Ventilator rate 16 /MIN; Device VENTILATOR; Modified Allen's Test Pass; Site Drawn RIGHT RADIAL
[2021-09-24 05:01] LABS: Arterial Blood Gas PEEP 5 cmH2O; Arterial Blood Gas Tidal Volume 400 ml; Arterial Blood Gas Vent Mode CMV
[2021-09-24 05:17] LABS: Alanine Aminotransferase 20 U/L (4-35); Albumin Level 3.7 g/dL (3.5-5.1); Alkaline Phosphatase 127 U/L (38-126); Anion Gap 8 mmol/L (8-16); Aspartate Amino Transferase 34 U/L (14-36); Bilirubin,Total 1.2 mg/dL (0.2-1.3); Blood Urea Nitrogen 70 mg/dL (7-17); Calcium 8.6 mg/dL (8.4-10.2); Carbon Dioxide 26 mmol/L (22-30); Chloride 107 mmol/L (98-107); Estimated CRCL calculation 22 ml/min; Estimated Glomerular Filt Rate 16; Glucose 172 mg/dL (65-110); Magnesium 2.1 mg/dL (1.6-2.3); Phosphorus 5.9 mg/dL (2.5-4.5); Potassium 3.9 mmol/L (3.4-5.0); Sodium 141 mmol/L (137-145)
[2021-09-24] MEDS: PROPOFOL IV EMULSION 100 ML 14.51 MG IV CONT ×3 (05:57→16:15)
[2021-09-24] MEDS: FENTANYL 2,500MCG/NS250ML(*CRX 2,500 MCG/250 ML BAG 20 MCG IV CONT ×2 (07:55→19:51)
[2021-09-24] MEDS: MINERAL OIL/WHITE PETROLATUM OINTMENT 1 APPLIC EACH EYE ×2 (08:03→19:59)
[2021-09-24] MEDS: METOPROLOL TARTRATE 50 MG TAB PO ×2 (08:03→19:59)
[2021-09-24] MEDS: IPRATROPIUM BR 0.02% INH SOLN 0.5 MG/2.5 ML VIAL INHALATION ×3 (08:28→19:31)
[2021-09-24] MEDS: DORNASE ALFA INH SOLN 1 MG/ML 2.5 ML AMP 2.5 MG INHALATION ×2 (08:29→19:31)
--- NOTE | 2021-09-24 09:54 | P.PNNP_ITS ---
Progress Note: A&P Assessment and Plan (1) JERRY (acute kidney injury): Code(s): N17.9 - Acute kidney failure, unspecified Status: Acute Assessment and Plan: * due to ATN from: * hemorrhagic shock * contrast exposure * obstruction * evaluation to date: * renal ultrasound with evidence of obstruction - s/p nephrostomy tube placement * CPK mildly elevated (but not enough to affect kidney function) * urine electrolytes non-prerenal * Last dialysis was on Saturday. * Creatinine improved due to dialysis. Will see what it is tomorrow. * Still making urine. * She has diarrhea as well. * Her respiratory deterioration may be due to pulmonary emboli. On low-dose anticoagulation. * Discussed with Dr. Rivera at length. (2) Bilateral hydronephrosis: Code(s): N13.30 - Unspecified hydronephrosis Status: Acute Assessment and Plan: * as noted by renal ultrasound * CT scan (09/02/20) with moderate bilateral hydronephrosis and hydroureter secondary to mass effect from the pelvic hematoma, worsened from 08/30/21 * s/p bilateral CT-guided nephrostomy tube placement on 09/02/20 * management per Urology (3) Anemia associated with acute blood loss: Code(s): D62 - Acute posthemorrhagic anemia Status: Deleted Assessment and Plan: * as noted by recent CT scan: * large hematoma in right pelvis extending into the peritoneum with two foci of active extravasation of contrast; hematomas in the rectus abdominis muscles, right worse than left * hemoglobin now 9.9will observe and will get another dose of EPO tomorrow. (4) Hemorrhagic shock: Code(s): R57.8 - Other shock Status: Deleted Assessment and Plan: * resolved (5) Acute respiratory failure with hypoxia: Code(s): J96.01 - Acute respiratory failure with hypoxia Status: Acute Assessment and Plan: * Reintubated due to recurrent pulmonary emboli (6) Pneumonia due to COVID-19 virus: Code(s): U07.1 - COVID-19; J12.82 - Pneumonia due to coronavirus disease 2019 Status: Acute Assessment and Plan: * Isolation has ?timed out ?. (7) Pulmonary embolism: Qualifiers: Pulmonary embolism type: unspecified Chronicity: acute Acute cor pulmonale presence: without acute cor pulmonale Qualified Code(s): I26.99 - Other pulmonary embolism without acute cor pulmonale Code(s): I26.99 - Other pulmonary embolism without acute cor pulmonale Status: Acute Assessment and Plan: * back on anticoagulants at a low dose Subjective Date/time seen: 09/24/21 09:54 Interval history: Patient is now in ICU on sedatives and pressors. Dose of norepinephrine has been titrated slightly down to 10. Patient is unable to give a history or review of system Exam Narrative: General: WD/WN female in NAD Heart: normal S1 and S2; no rub Lungs: Mildly coarse breath sounds bilaterally Abdomen: soft, nontender, nondistended; RLQ bruising noted Extremities: minimal edemasis Skin: no rash Objective Data Vital Signs Vital Signs: Vital Signs - 24 hr 09/23/21 10:00 09/23/21 11:59 09/23/21 12:00 Temperature 37.4 C Pulse Rate 117 H 102 H 103 H Respiratory Rate 19 24 H Blood Pressure 94/63 L 90/62 L Pulse Oximetry 100 100 100 09/23/21 13:00 09/23/21 13:15 09/23/21
--- NOTE | 2021-09-24 09:54 | PM.PNNEP ---
Progress Note: A&P Assessment and Plan (1) JERRY (acute kidney injury): Code(s): N17.9 - Acute kidney failure, unspecified Status: Acute Assessment and Plan: due to ATN from: hemorrhagic shock contrast exposure obstruction evaluation to date: renal ultrasound with evidence of obstruction - s/p nephrostomy tube placement CPK mildly elevated (but not enough to affect kidney function) urine electrolytes non-prerenal Last dialysis was on Saturday. Creatinine improved due to dialysis. Will see what it is tomorrow. Still making urine. She has diarrhea as well. Her respiratory deterioration may be due to pulmonary emboli. On low-dose anticoagulation. Discussed with Dr. Rivera at length. (2) Bilateral hydronephrosis: Code(s): N13.30 - Unspecified hydronephrosis Status: Acute Assessment and Plan: as noted by renal ultrasound CT scan (09/02/20) with moderate bilateral hydronephrosis and hydroureter secondary to mass effect from the pelvic hematoma, worsened from 08/30/[address]-guided nephrostomy tube placement on 09/02/20 management per Urology (3) Anemia associated with acute blood loss: Code(s): D62 - Acute posthemorrhagic anemia Status: Deleted Assessment and Plan: as noted by recent CT scan: large hematoma in right pelvis extending into the peritoneum with two foci of active extravasation of contrast; hematomas in the rectus abdominis muscles, right worse than left hemoglobin now 9.9will observe and will get another dose of EPO tomorrow. (4) Hemorrhagic shock: Code(s): R57.8 - Other shock Status: Deleted Assessment and Plan: resolved (5) Acute respiratory failure with hypoxia: Code(s): J96.01 - Acute respiratory failure with hypoxia Status: Acute Assessment and Plan: Reintubated due to recurrent pulmonary emboli (6) Pneumonia due to COVID-19 virus: Code(s): U07.1 - COVID-19; J12.82 - Pneumonia due to coronavirus disease 2019 Status: Acute Assessment and Plan: Isolation has ?timed out ?. (7) Pulmonary embolism: Qualifiers: Pulmonary embolism type: unspecified Chronicity: acute Acute cor pulmonale presence: without acute cor pulmonale Qualified Code(s): I26.99 - Other pulmonary embolism without acute cor pulmonale Code(s): I26.99 - Other pulmonary embolism without acute cor pulmonale Status: Acute Assessment and Plan: back on anticoagulants at a low dose Subjective Date/time seen: 09/24/21 09:54 Interval history: Patient is now in ICU on sedatives and pressors. Dose of norepinephrine has been titrated slightly down to 10. Patient is unable to give a history or review of system Exam Narrative: General: WD/WN female in NAD Heart: normal S1 and S2; no rub Lungs: Mildly coarse breath sounds bilaterally Abdomen: soft, nontender, nondistended; RLQ bruising noted Extremities: minimal edemasis Skin: no rash Objective Data Vital Signs Vital Signs: Vital Signs - 24 hr 09/23/21 10:00 09/23/21 11:59 09/23/21 12:00 Temperature 37.4 C Pulse Rate 117 H 102 H 103 H Respiratory Rate 19 24 H Blood Pressure 94/63 L 90/62 L Pulse Oximetry 100 100 100 09/23/21 13:00 09/23/21 13:15 09/23/21 13:30 Temperature 37.2 C Pulse Rate 139 H 134 H 120 H Respiratory Rate 22 H Blood Pressure 113/70 164/115 H 82/52 L Pulse Oximetry 09/23/21 13:40 09/23/21 14:00 09/23/21 14:10 Temperature Pulse Rate 111 H 116 H 118 H Respiratory Rate 24 H 22 H Blood Pressure 85/65 L 84/68 L Pulse Oximetry 100 09/23/21 14:11 09/23/21 14:24 09/23/21 14:30 Temperature Pulse Rate 115 H 109 H 124 H Respiratory Rate 16 Blood Pressure 95/71 L Pulse Oximetry 100 09/23/21 15:00 09/23/21 15:15 09/23/21 15:39 Temperature Pulse Rate 105 H 129 H 135 H Respiratory Rate 22 H B
[2021-09-24] MEDS: AMIODARONE 360 MG/D5W 200 ML 360 MG/200 ML BAG 16.67 MG IV CONT ×2 (10:44→22:51)
--- NOTE | 2021-09-24 11:00 | WPDINTPN ---
Progress Note: A&P Assessment and Plan (1) Acute DVT (deep venous thrombosis): Qualifiers: DVT location: lower extremity Affected thrombotic vein of extremity: femoral Laterality: left Qualified Code(s): I82.412 - Acute embolism and thrombosis of left femoral vein Code(s): I82.409 - Acute embolism and thrombosis of unspecified deep veins of unspecified lower extremity Status: Acute Assessment and Plan: 09/22/2021 venous Dopplers: Acute deep vein thrombosis involving left common femoral vein. Some veins were not well evaluated due to patient motion. -earlier this admission patient had DVT and was started on anticoagulation and developed a large abdominal hematoma with hemorrhagic shock requiring multiple units of blood products. -currently she is not a candidate for anticoagulation given her recent hemorrhage and hemorrhagic shock -d/w surgery, discussed with Dr. Cain, started on Lovenox 80 mg subQ Q daily renally dosed, will increase to 100 mg in a couple of days if blood counts remain stable. -will monitor closely for hypotension, anemia or any kind of overt bleeding. (2) Acute respiratory failure with hypoxia: Code(s): J96.01 - Acute respiratory failure with hypoxia Status: Acute Assessment and Plan: Acute respiratory failure likely related to pneumonia, edema, possible PE as patient had atrial fibrillation RVR and has a history of PE recently Chest x-ray showed bilateral airspace disease which may represent pneumonia or edema -continue CMV mode of ventilation, 30% FiO2 and peep of 5. -continue bronchodilators -continue low tidal volume strategy to prevent volume trauma -sedated with fentanyl, Versed, propofol infusion maintain RASS of 0 to -2 (3) Sepsis: Code(s): A41.9 - Sepsis, unspecified organism Status: Deleted Assessment and Plan: Tachycardia, pneumonia, acute respiratory failure -09/23/2021: Sputum cultures negative, -09/23/2021 urine cultures growing Klebsiella oxytoca -09/23/2021 blood cultures negative x2 -started on cefepime and vancomycin (09/22/2021) (4) JERRY (acute kidney injury): Code(s): N17.9 - Acute kidney failure, unspecified Status: Acute Assessment and Plan: Patient with acute kidney injury after abdominal hematoma compressing on ureters bilaterally. Patient required dialysis catheter placement and started on dialysis. -BUN creatinine still remain elevated patient is making urine -continue to monitor urine output, renal function electrolytes -appreciate nephrology following the patient -last dialysis was 09/23/2021: Other dialysis per Nephrology (5) Anemia associated with acute blood loss: Code(s): D62 - Acute posthemorrhagic anemia Status: Deleted Assessment and Plan: RESOLVED (6) Pneumonia due to 2019-nCoV: Code(s): U07.1 - COVID-19; J12.82 - Pneumonia due to coronavirus disease 2019 Status: Deleted Assessment and Plan: Resolved (7) Pulmonary embolism: Qualifiers: Pulmonary embolism type: unspecified Chronicity: acute Acute cor pulmonale presence: without acute cor pulmonale Qualified Code(s): I26.99 - Other pulmonary embolism without acute cor pulmonale Code(s): I26.99 - Other pulmonary embolism without acute cor pulmonale Status: Acute Assessment and Plan: 08/25/2021 in CTA showed acute bilateral pulmonary embolism, patient was treated with anticoagulation and a hemorrhagic shock in large hematoma in the abdomen and pelvis after which the anticoagulation was stopped. -09/22/2020: Patient with respiratory distress, again there was a thought that patient may have PE, unable to do CT angio to rule out PE due to renal dysfunction as she is on intermittent dialysis. Still continues to make urine and giving her any kind of contrast with put her into contrast induced nephropathy. Nephrology also agrees (8) Paroxysmal A-fib: Code
[2021-09-24 11:15] LABS: Glucose Point of Care 168 mg/dl (65-105)
[2021-09-24] MEDS: NOREPINEPHRINE 8 MG/D5W 250 ML 8 MG/250 ML BAG 20.63 MG IV CONT (12:54)
[2021-09-24] MEDS: ENOXAPARIN 100 MG/ML SYRINGE SUB-Q (13:00)
[2021-09-24] MEDS: metroNIDAZOLE 250 MG TABLET 500 MG FEED TUBE ×2 (13:00→21:36)
--- NOTE | 2021-09-24 13:04 | PM.PNCARD ---
Progress Note: A&P Assessment and Plan (1) Paroxysmal A-fib: Code(s): I48.0 - Paroxysmal atrial fibrillation Status: Acute Assessment and Plan: Patient had recurrence of atrial fibrillation with RVR last night prompting initiation of IV amiodarone infusion per Critical Care Service. She remains on metoprolol per 250 mg twice daily. Remains on Levophed difficult to up titrate further. Patient currently in sinus rhythm. Continue present management for now. She is not a good anticoagulation candidate but was cautiously started back on anticoagulation per surgery. Management as tolerated given very complicated clinical course with extensive hematoma, splenic infarct, DVT and pulmonary embolism. Patient at high risk for thromboembolic and bleeding complications. Patient is extremely complicated. Patient remains critically ill. (2) Tachycardia: Code(s): R00.0 - Tachycardia, unspecified Status: Acute Assessment and Plan: Improved, maintaining sinus rhythm on metoprolol and amiodarone. As above. Would like to plan for short-term use of amiodarone as she tolerates. Continue metoprolol as BP permits. (3) Pneumonia due to COVID-19 virus: Code(s): U07.1 - COVID-19; J12.82 - Pneumonia due to coronavirus disease 2019 Status: Acute Assessment and Plan: Per critical care. (4) Acute respiratory failure with hypoxia: Code(s): J96.01 - Acute respiratory failure with hypoxia Status: Acute Assessment and Plan: Remains intubated on mechanical ventilatory support. Management per critical service. Remains on IV antibiotics. (5) JERRY (acute kidney injury): Code(s): N17.9 - Acute kidney failure, unspecified Status: Acute Assessment and Plan: Status post hemodialysis yesterday. Appreciate Nephrology involvement. (6) Acute DVT (deep venous thrombosis): Qualifiers: DVT location: lower extremity Affected thrombotic vein of extremity: femoral Laterality: left Qualified Code(s): I82.412 - Acute embolism and thrombosis of left femoral vein Code(s): I82.409 - Acute embolism and thrombosis of unspecified deep veins of unspecified lower extremity Status: Acute Assessment and Plan: Anticoagulation as tolerated. Defer to Critical Care Service in this regard. Subjective Date/time seen: Date of service: 09/24/21 13:04 Follow-up for paroxysmal atrial fibrillation with RVR, COVID pneumonia multiple complications Patient remains intubated and sedated not able to provide history. Started on dialysis yesterday. Patient started on amiodarone infusion last night due to AFib with RVR. Maintaining sinus rhythm currently. She remains on Levophed. Review of Systems Review of Systems: ROS unobtainable: Yes unobtainable due to medical condition and unobtainable due to mental status Exam Const: Other: sedated, intubated on mechanical ventilatory support, calm HENMT: Mouth: Yes moist mucous membranes Eyes: Sclera: sclerae normal Neck: Neck: supple Other: obese neck No obvious JVD Resp: Effort & Inspection: normal respiratory effort Other: breath sounds diffusely diminished. Cardio: Rate: regular rate Rhythm: regular rhythm Other: No significant murmur or gallop Appreciated GI: Inspection: obesity Auscultation: normal bowel sounds Skin: General skin exam: normal color Neuro: Other: sedated, calm Extrem: Other: No significant edema adequate distal pulses Psych: Appearance: other ( unable to assess due to sedation and intubation) Mental Status: other Objective Data Vital Signs Vital Signs: Vital Signs - 24 hr 09/23/21 13:15 09/23/21 13:30 09/23/21 13:40 Temperature Pulse Rate 134 H 120 H 111 H Respiratory Rate Blood Pressure 164/115 H 82/52 L 85/65 L Pulse Oximetry 09/23/21 14:00 09/23/21 14:10 09/23/21 14:11 Temperature Pulse Rate 116 H 118 H 115 H Respiratory Rate 24 H 2
[2021-09-24 17:05] LABS: Glucose Point of Care 146 mg/dl (65-105)
[2021-09-24] MEDS: CENTRAL LINE FLUSH 10 ML IV PUSH (17:05)
[2021-09-24] MEDS: NOREPINEPHRINE 8 MG/D5W 250 ML 8 MG/250 ML BAG 22.5 MG IV CONT (23:29)
[2021-09-24] MEDS: PROPOFOL IV EMULSION 100 ML 11.6 MG IV CONT (23:34)
[2021-09-24 23:48] LABS: Glucose Point of Care 140 mg/dl (65-105)
[2021-09-25] VITALS (58 sets, daily range): BP systolic 87–138; BP diastolic 49–91; PULSE 58–128; RESP 13–26; TEMP 36.8–37.1; O2SAT 97–100
[2021-09-25] MEDS: LEVALBUTEROL NEB 1.25 MG/3 ML 0.63 MG INHALATION ×4 (02:37→20:15)
[2021-09-25] MEDS: IPRATROPIUM BR 0.02% INH SOLN 0.5 MG/2.5 ML VIAL INHALATION ×4 (02:37→20:15)
[2021-09-25 04:27] LABS: Alveolar/Arterial O2 Gradient 69.1 mmHg; Base Excess ABG -1.2 mEq/l (+/-2.0); Fractional Inspired Oxygen 30 %; HCO3 ABG 24.9 mEq/l (22.0-26.0); Oxygen Saturation ABG 96.5 % (95.0-100.0); PCO2 ABG 46.4 mmHg (35.0-45.0); PO2 ABG 90.3 mmHg (80.0-100.0); PO2 FiO2 Ratio Arterial Blood 3.01 %; pH ABG 7.347 (7.350-7.450)
[2021-09-25 04:37] LABS: Device VENTILATOR; Modified Allen's Test Pass; Site Drawn RIGHT RADIAL
[2021-09-25 04:38] LABS: Arterial Blood Gas PEEP 5 cmH2O; Arterial Blood Gas Tidal Volume 40 ml; Arterial Blood Gas Vent Mode CMV; Arterial Blood Gas Ventilator rate 16 /MIN
[2021-09-25 04:41] LABS: Basophils Absolute Auto 0.1 K/mm3 (0.0-0.1); Basophils Percent Auto 0.8 % (0.2-1.2); Eosinophils Absolute Auto 0.6 K/mm3 (0-0.3); Eosinophils Percent Auto 4.7 % (0-4.4); Hematocrit 32.4 % (37.0-47.0); Hemoglobin 9.8 g/dL (12.0-15.0); Immature Granulocyte Absolute 0.83 K/mm3 (0.00-0.031); Immature Granulocyte Percent A 6.5 % (0-0.5); Lymphocytes Absolute Auto 1.94 K/mm3 (0.9-3.2); Lymphocytes Percent Auto 15.1 % (18.3-44.2); Mean Corpuscular HGB Conc 30.2 g/dl (32-36); Mean Corpuscular Hemoglobin 29.5 pg (26-34); Mean Corpuscular Volume 97.6 fl (80-100); Monocytes Absolute Auto 1.3 K/mm3 (0.1-0.6); Monocytes Percent Auto 10.4 % (2.6-8.5); Neutrophils Percent Auto 62.5 % (45.5-73.1); Nucleated Red Blood Cells Perc 0.3 % (0.0-0.2); Red Blood Count 3.32 M/mm3 (4.2-5.4); Red Cell Distribution Width 15.9 % (11.5-14.5); White Blood Count 12.8 K/mm3 (4.5-10.0)
[2021-09-25 04:55] LABS: Alanine Aminotransferase 20 U/L (4-35); Albumin Level 3.6 g/dL (3.5-5.1); Alkaline Phosphatase 162 U/L (38-126); Anion Gap 8 mmol/L (8-16); Aspartate Amino Transferase 30 U/L (14-36); Bilirubin,Total 1.5 mg/dL (0.2-1.3); Blood Urea Nitrogen 71 mg/dL (7-17); Calcium 8.6 mg/dL (8.4-10.2); Carbon Dioxide 24 mmol/L (22-30); Chloride 104 mmol/L (98-107); Estimated CRCL calculation 22 ml/min; Estimated Glomerular Filt Rate 16; Glucose 150 mg/dL (65-110); Magnesium 2.1 mg/dL (1.6-2.3); Phosphorus 6.3 mg/dL (2.5-4.5); Potassium 3.9 mmol/L (3.4-5.0); Sodium 136 mmol/L (137-145)
[2021-09-25 05:05] LABS: Anisocytosis 1+ (NORMAL); Burr Cells 1+ (NORMAL); Large Platelets Present; Platelet Estimate Adequate (Adequate); Tear Drop Cells 2+ (NORMAL)
[2021-09-25 05:06] LABS: Platelet Clumps Present
[2021-09-25] MEDS: metroNIDAZOLE 250 MG TABLET 500 MG FEED TUBE ×3 (06:01→23:00)
[2021-09-25] MEDS: PROPOFOL IV EMULSION 100 ML 11.6 MG IV CONT ×2 (07:46→22:17)
[2021-09-25] MEDS: METOPROLOL TARTRATE 50 MG TAB PO ×2 (07:53→20:31)
[2021-09-25] MEDS: MINERAL OIL/WHITE PETROLATUM OINTMENT 1 APPLIC EACH EYE ×2 (07:53→20:33)
[2021-09-25] MEDS: FAMOTIDINE 20 MG/2 ML VIAL IV PUSH (07:53)
[2021-09-25] MEDS: FENTANYL 2,500MCG/NS250ML(*CRX 2,500 MCG/250 ML BAG 20 MCG IV CONT (08:04)
[2021-09-25] MEDS: DORNASE ALFA INH SOLN 1 MG/ML 2.5 ML AMP 2.5 MG INHALATION ×2 (08:18→20:15)
[2021-09-25] MEDS: NOREPINEPHRINE 8 MG/D5W 250 ML 8 MG/250 ML BAG 18.75 MG IV CONT ×2 (10:22→21:48)
--- NOTE | 2021-09-25 11:14 | PM.PNCARD ---
Progress Note: A&P Additional Plan 5-year-old woman with: Paroxysmal atrial fibrillation with RVR due to the hemodynamic stress of her a multiple comorbidities. Patient has resolving COVID pneumonia also has pulmonary emboli and significant hematoma in the pelvis and abdomen. No evidence of recent bleeding into the hematoma she has now been anticoagulated again since decompensated over the weekend in plane placed back in the ICU. Sinus rhythm heart rate in the mid 80s at this time. Very difficult challenging situation as detailed in many notes. No additional cardiac recommendations at this time Delano Spence MD [facility] Subjective Date/time seen: Date of service: 09/25/21 11:14 Interval history: Follow-up visit in this 55-year-old woman with: Atrial fib with rapid ventricular response noted in a paroxysmal fashion last week while she was out on the floor. Patient with incredibly complex hospital course for the last month and several days in the hospital. Receiving metoprolol. Cardiac rhythm is stable. Intubated sedated in the ICU. Exam Const: Other: sedated, intubated on mechanical ventilatory support, calm HENMT: Mouth: Yes moist mucous membranes Eyes: Sclera: sclerae normal Neck: Neck: supple Other: obese neck No obvious JVD Resp: Effort & Inspection: normal respiratory effort Other: breath sounds diffusely diminished. Cardio: Rate: regular rate Rhythm: regular rhythm Other: No significant murmur or gallop Appreciated GI: Inspection: obesity Auscultation: normal bowel sounds Skin: General skin exam: normal color Neuro: Other: sedated, calm Extrem: Other: No significant edema adequate distal pulses Psych: Appearance: other ( unable to assess due to sedation and intubation) Mental Status: other Objective Data Vital Signs Vital Signs: Vital Signs - 24 hr 09/24/21 11:22 09/24/21 12:00 09/24/21 12:05 Temperature 36.8 C Pulse Rate 72 73 75 Respiratory Rate 16 16 Blood Pressure 76/62 L 76/62 L Pulse Oximetry 100 100 09/24/21 12:54 09/24/21 13:01 09/24/21 13:06 Temperature Pulse Rate 71 72 73 Respiratory Rate 17 Blood Pressure 100/68 89/60 L Pulse Oximetry 100 09/24/21 13:15 09/24/21 13:45 09/24/21 13:59 Temperature Pulse Rate 78 75 67 Respiratory Rate 16 Blood Pressure 88/60 L Pulse Oximetry 09/24/21 14:00 09/24/21 15:20 09/24/21 16:00 Temperature 36.8 C Pulse Rate 69 76 71 Respiratory Rate 16 16 16 Blood Pressure 106/69 103/71 Pulse Oximetry 100 100 100 09/24/21 16:15 09/24/21 17:07 09/24/21 18:00 Temperature Pulse Rate 73 76 72 Respiratory Rate 16 16 Blood Pressure 117/78 Pulse Oximetry 100 100 09/24/21 19:27 09/24/21 19:30 09/24/21 19:39 Temperature Pulse Rate 76 75 77 Respiratory Rate 16 16 Blood Pressure Pulse Oximetry 100 09/24/21 19:51 09/24/21 19:59 09/24/21 20:00 Temperature 36.8 C Pulse Rate 75 76 77 Respiratory Rate 16 16 Blood Pressure 106/70 Pulse Oximetry 100 09/24/21 22:00 09/24/21 22:51 09/24/21 22:52 Temperature Pulse Rate 75 84 Respiratory Rate 16 Blood Pressure 103/78 102/66 102/66 Pulse Oximetry 100 09/24/21 23:07 09/24/21 23:33 09/25/21 00:00 Temperature 36.9 C Pulse Rate 79 78 85 Respiratory Rate 16 16 Blood Pressure 97/49 L Pulse Oximetry 100 97 09/25/21 02:00 09/25/21 02:34 09/25/21 02:37 Temperature Pulse Rate 82 77 77 Respiratory Rate 17 16 Blood Pressure 102/61 Pulse Oximetry 100 100 09/25/21 02:48 09/25/21 04:00 09/25/21 05:29 Temperature 37.1 C Pulse Rate 80 99 72 Respiratory Rate 16 18 Blood Pressure 124/64 Pulse Oximetry 100 100 09/25/21 05:37 09/25/21 06:00 09/25/21 07:46 Temperature Pulse Rate 99 87 83 Respiratory Rate 21 H 19 21 H Blood Pressure 114/72 Pulse Oximetry 100 09/25/21 07:47 09/25/21 07:49 09/25/21 07:53 Temperature Pulse Rate 83 97 99 Respiratory Rate 19 Blo
[2021-09-25 11:15] LABS: Glucose Point of Care 126 mg/dl (65-105)
--- NOTE | 2021-09-25 11:30 | P.PNNP_ITS ---
Progress Note: A&P Assessment and Plan (1) JERRY (acute kidney injury): Code(s): N17.9 - Acute kidney failure, unspecified Status: Acute Assessment and Plan: * due to ATN from: * hemorrhagic shock * contrast exposure * obstruction * evaluation to date: * renal ultrasound with evidence of obstruction - s/p nephrostomy tube placement * CPK mildly elevated (but not enough to affect kidney function) * urine electrolytes non-prerenal * Last dialysis was on Saturday. * Her creatinine was 3.1 yesterday and also is today. * Still making urine. 405cc for yesterday is 24hour. * She has diarrhea as well. * Discussed with Dr. Mclaughlin (2) Bilateral hydronephrosis: Code(s): N13.30 - Unspecified hydronephrosis Status: Acute Assessment and Plan: * as noted by renal ultrasound * CT scan (09/02/20) with moderate bilateral hydronephrosis and hydroureter secondary to mass effect from the pelvic hematoma, worsened from 08/30/21 * s/p bilateral CT-guided nephrostomy tube placement on 09/02/20 * management per Urology (3) Anemia associated with acute blood loss: Code(s): D62 - Acute posthemorrhagic anemia Status: Deleted Assessment and Plan: * as noted by recent CT scan: * large hematoma in right pelvis extending into the peritoneum with two foci of active extravasation of contrast; hematomas in the rectus abdominis musc les, right worse than left * hemoglobin now 9.9will observe and will get another dose of EPO tomorrow. (4) Hemorrhagic shock: Code(s): R57.8 - Other shock Status: Deleted Assessment and Plan: * resolved (5) Acute respiratory failure with hypoxia: Code(s): J96.01 - Acute respiratory failure with hypoxia Status: Acute Assessment and Plan: * Reintubated * Etiology of the respiratory deterioration is unclear. Possibilities include pulmonary emboli, fatigue with persistent COVID lung. I do not think she is fluid overloaded. (6) Pneumonia due to COVID-19 virus: Code(s): U07.1 - COVID-19; J12.82 - Pneumonia due to coronavirus disease 2019 Status: Acute Assessment and Plan: * Isolation has ?timed out ?. (7) Pulmonary embolism: Qualifiers: Pulmonary embolism type: unspecified Chronicity: acute Acute cor pulmonale presence: without acute cor pulmonale Qualified Code(s): I26.99 - Other pulmonary embolism without acute cor pulmonale Code(s): I26.99 - Other pulmonary embolism without acute cor pulmonale Status: Acute Assessment and Plan: * back on anticoagulants at a low dose Subjective Date/time seen: 09/25/21 11:30 Interval history: Patient is now in ICU on sedatives and pressors. norepinephrine dose is 12. Patient is unable to give a history or review of system Exam Narrative: General: WD/WN female in NAD Heart: normal S1 and S2; no rub or gallop Lungs: Mildly coarse breath sounds bilaterally Abdomen: soft, nontender, nondistended; RLQ bruising noted Extremities: minimal edemasis Skin: no rash or subcu nodules Objective Data Vital Signs Vital Signs: Vital Signs - 24 hr 09/24/21 12:00 09/24/21 12:05 09/24/21 12:54 Temperature 36.8 C Pulse Rate 73 75 71 Respiratory Rate 16 Blood Pressure 76/62 L 76/62 L 100/68 Pulse Oximetry 100 09/24/21 13:
--- NOTE | 2021-09-25 11:30 | PM.PNNEP ---
Progress Note: A&P Assessment and Plan (1) JERRY (acute kidney injury): Code(s): N17.9 - Acute kidney failure, unspecified Status: Acute Assessment and Plan: due to ATN from: hemorrhagic shock contrast exposure obstruction evaluation to date: renal ultrasound with evidence of obstruction - s/p nephrostomy tube placement CPK mildly elevated (but not enough to affect kidney function) urine electrolytes non-prerenal Last dialysis was on Saturday. Her creatinine was 3.1 yesterday and also is today. Still making urine. 405cc for yesterday is 24hour. She has diarrhea as well. Discussed with Dr. Mclaughlin (2) Bilateral hydronephrosis: Code(s): N13.30 - Unspecified hydronephrosis Status: Acute Assessment and Plan: as noted by renal ultrasound CT scan (09/02/20) with moderate bilateral hydronephrosis and hydroureter secondary to mass effect from the pelvic hematoma, worsened from 08/30/[address] s[address]-guided nephrostomy tube placement on 09/02/20 management per Urology (3) Anemia associated with acute blood loss: Code(s): D62 - Acute posthemorrhagic anemia Status: Deleted Assessment and Plan: as noted by recent CT scan: large hematoma in right pelvis extending into the peritoneum with two foci of active extravasation of contrast; hematomas in the rectus abdominis muscles, right worse than left hemoglobin now 9.9will observe and will get another dose of EPO tomorrow. (4) Hemorrhagic shock: Code(s): R57.8 - Other shock Status: Deleted Assessment and Plan: resolved (5) Acute respiratory failure with hypoxia: Code(s): J96.01 - Acute respiratory failure with hypoxia Status: Acute Assessment and Plan: Reintubated Etiology of the respiratory deterioration is unclear. Possibilities include pulmonary emboli, fatigue with persistent COVID lung. I do not think she is fluid overloaded. (6) Pneumonia due to COVID-19 virus: Code(s): U07.1 - COVID-19; J12.82 - Pneumonia due to coronavirus disease 2019 Status: Acute Assessment and Plan: Isolation has ?timed out ?. (7) Pulmonary embolism: Qualifiers: Pulmonary embolism type: unspecified Chronicity: acute Acute cor pulmonale presence: without acute cor pulmonale Qualified Code(s): I26.99 - Other pulmonary embolism without acute cor pulmonale Code(s): I26.99 - Other pulmonary embolism without acute cor pulmonale Status: Acute Assessment and Plan: back on anticoagulants at a low dose Subjective Date/time seen: 09/25/21 11:30 Interval history: Patient is now in ICU on sedatives and pressors. norepinephrine dose is 12. Patient is unable to give a history or review of system Exam Narrative: General: WD/WN female in NAD Heart: normal S1 and S2; no rub or gallop Lungs: Mildly coarse breath sounds bilaterally Abdomen: soft, nontender, nondistended; RLQ bruising noted Extremities: minimal edemasis Skin: no rash or subcu nodules Objective Data Vital Signs Vital Signs: Vital Signs - 24 hr 09/24/21 12:00 09/24/21 12:05 09/24/21 12:54 Temperature 36.8 C Pulse Rate 73 75 71 Respiratory Rate 16 Blood Pressure 76/62 L 76/62 L 100/68 Pulse Oximetry 100 09/24/21 13:01 09/24/21 13:06 09/24/21 13:15 Temperature Pulse Rate 72 73 78 Respiratory Rate 17 16 Blood Pressure 89/60 L Pulse Oximetry 100 09/24/21 13:45 09/24/21 13:59 09/24/21 14:00 Temperature Pulse Rate 75 67 69 Respiratory Rate 16 Blood Pressure 88/60 L 106/69 Pulse Oximetry 100 09/24/21 15:20 09/24/21 16:00 09/24/21 16:15 Temperature 36.8 C Pulse Rate 76 71 73 Respiratory Rate 16 16 16 Blood Pressure 103/71 Pulse Oximetry 100 100 09/24/21 17:07 09/24/21 18:00 09/24/21 19:27 Temperature Pulse Rate 76 72 76 Respiratory Rate 16 Blood Pressure 117/78
--- NOTE | 2021-09-25 12:15 | PCFNICU ---
ICU Rounding Note: Pt current nutrition is Nepro at 45 ml/hr over 22 hours. Last recorded weight is 96.2 kg-stable. Bowel Motility:+BM reported 09/23 Labs Reviewed:Glu 150, Cr 3.10,GFR 16, BUN 71, Na 136, Hct 32.4,Hgb 9.8 Meds Noted:Versed,Fentanyl, Vancomycin, Pepcid, Levophed, Atrovent, Lopressor,Flagyl, Propofol 25 evub=881 kcals. Skin:Deep Tissue-coccyx. Additional Notes: Patient remains on mechanical vent and tube feedings of Nepro at 45 ml/hr over 22 hours. Recommend Eloy BID for wound healing via tube. Tube feedings plus additional 355 kcals from propofol remains appropriate. Free water flush 30 ml q 4 hours. Agree with diet orders. Following daily in ICU rounds. Will monitor every Saturday and Saturday.
--- NOTE | 2021-09-25 12:30 | WPDINTPN ---
Progress Note: A&P Assessment and Plan (1) Acute DVT (deep venous thrombosis): Qualifiers: DVT location: lower extremity Affected thrombotic vein of extremity: femoral Laterality: left Qualified Code(s): I82.412 - Acute embolism and thrombosis of left femoral vein Code(s): I82.409 - Acute embolism and thrombosis of unspecified deep veins of unspecified lower extremity Status: Acute Assessment and Plan: 09/22/2021 venous Dopplers: Acute deep vein thrombosis involving left common femoral vein. Some veins were not well evaluated due to patient motion. -08/25 - earlier this admission patient had PE and was started on anticoagulation and developed a large abdominal hematoma with hemorrhagic shock requiring multiple units of blood products, DDAVP and tranexamic acid - Anticoagulation was stopped at that time. Lower Extremity Dopplers were negative for DVT at that time -surgery consulted for IVC filter and they recommended trial of anticoagulation. Patient was started on Lovenox. Since patient has been on Lovenox for 2 days now and is tolerating with stable hemoglobin I will continue. -I will continue to monitor hemoglobin closely (2) Acute respiratory failure with hypoxia: Code(s): J96.01 - Acute respiratory failure with hypoxia Status: Acute Assessment and Plan: Acute respiratory failure likely related to pneumonia, edema, possible PE as patient had atrial fibrillation RVR and has a history of PE recently Chest x-ray showed bilateral airspace disease which may represent pneumonia or edema -continue CMV mode of ventilation, 30% FiO2 and peep of 5. -continue bronchodilators -continue low tidal volume strategy to prevent volume trauma -sedated with fentanyl, Versed, propofol infusion maintain RASS of 0 to -2 -will wean sedation down and evaluate patient for a weaning trial (3) Sepsis: Code(s): A41.9 - Sepsis, unspecified organism Status: Deleted Assessment and Plan: Tachycardia, pneumonia, acute respiratory failure -09/23/2021: Sputum cultures negative, -09/23/2021 urine cultures growing Klebsiella oxytoca -09/23/2021 blood cultures negative x2 -started on cefepime and vancomycin (09/22/2021) -CT reviewed and there is small focus of air in the hematoma which could be a potential infection -continue current antibiotics at this time (4) JERRY (acute kidney injury): Code(s): N17.9 - Acute kidney failure, unspecified Status: Acute Assessment and Plan: Patient with acute kidney injury after abdominal hematoma compressing on ureters bilaterally. Patient required dialysis catheter placement and started on dialysis. -BUN creatinine still remain elevated patient is making urine -continue to monitor urine output, renal function electrolytes -nephrology following -last dialysis was 09/23/2021: Other dialysis per Nephrology -urology is following and at this time there is no plan to place ureteral stents. Patient has bilateral nephrostomy tubes which are draining (5) Anemia associated with acute blood loss: Code(s): D62 - Acute posthemorrhagic anemia Status: Deleted Assessment and Plan: Bleeding appears to have stopped and hemoglobin has been stable Repeat CT shows persistent large right pelvic hematoma and persistent hematoma in right rectus abdominus muscle (6) Pneumonia due to 2019-nCoV: Code(s): U07.1 - COVID-19; J12.82 - Pneumonia due to coronavirus disease 2019 Status: Deleted Assessment and Plan: Improving infiltrates on CT (7) Pulmonary embolism: Qualifiers: Pulmonary embolism type: unspecified Chronicity: acute Acute cor pulmonale presence: without acute cor pulmonale Qualified Code(s): I26.99 - Other pulmonary embolism without acute cor pulmonale Code(s): I26.99 - Other pulmonary embolism without acute cor pulmonale Status: Acute Assessment and Plan: 08/25/2021 in [facility]
--- NOTE | 2021-09-25 12:32 | WPDGIPROGNO ---
Progress Note: A&P Assessment and Plan (1) Dysphagia: Code(s): R13.10 - Dysphagia, unspecified Status: Acute Assessment and Plan: Patient has had difficulty swallowing. Now intubated tolerating tube feedings via Dobbhoff tube. Plan to defer PEG tube until more stable. Currently anticoagulated on pressor agents. With new pulmonary embolus. (2) Acute DVT (deep venous thrombosis): Qualifiers: DVT location: lower extremity Affected thrombotic vein of extremity: femoral Laterality: left Qualified Code(s): I82.412 - Acute embolism and thrombosis of left femoral vein Code(s): I82.409 - Acute embolism and thrombosis of unspecified deep veins of unspecified lower extremity Status: Acute (3) PNA (pneumonia): Code(s): J18.9 - Pneumonia, unspecified organism Status: Acute Assessment and Plan: Patient had COVID pneumonia time of admission the hospital. Now with new pneumonia infiltrates. (4) Paroxysmal A-fib: Code(s): I48.0 - Paroxysmal atrial fibrillation Status: Acute Assessment and Plan: Intermittent atrial fib with fast ventricular rate. Currently being monitored by cardiology service. Patient on metoprolol. (5) Bilateral hydronephrosis: Code(s): N13.30 - Unspecified hydronephrosis Status: Acute Assessment and Plan: External nephrostomy tubes for drainage in place. Renal insufficiency being monitored by Nephrology service. Intermittent dialysis has been used recently. (6) Pulmonary embolism: Qualifiers: Pulmonary embolism type: unspecified Chronicity: acute Acute cor pulmonale presence: without acute cor pulmonale Qualified Code(s): I26.99 - Other pulmonary embolism without acute cor pulmonale Code(s): I26.99 - Other pulmonary embolism without acute cor pulmonale Status: Acute Assessment and Plan: Patient appears to have a new pulmonary embolus by repeat scanning. Now with significant respiratory failure on ventilation. Will defer PEG tube plans at this time. Subjective Date/time seen: 09/25/21 12:32 Interval history. Patient is 55-year-old white female patient who was intubated with respiratory failure over the weekend. She now has atrial fibrillation with rapid ventricular response. Appears to occur intermittently. Now on pressor agents sedated intubated in the intensive care unit on pressor agents. Review of Systems Review of Systems: ROS unobtainable: Yes unobtainable due to endotracheal tube Exam Narrative: Physical exam reveals patient to now be intubated. Dobbhoff tube in place functioning well. Patient is sedated unable to give any response. Lungs reveal scattered rhonchi. Heart without murmur. Abdomen bowel sounds present soft nontender. No organomegaly evident. No palpable masses. No significant scarring. Objective Data Vital Signs Vital Signs: Vital Signs - 24 hr 09/24/21 12:54 09/24/21 13:01 09/24/21 13:06 Temperature Pulse Rate 71 72 73 Respiratory Rate 17 Blood Pressure 100/68 89/60 L Pulse Oximetry 100 09/24/21 13:15 09/24/21 13:45 09/24/21 13:59 Temperature Pulse Rate 78 75 67 Respiratory Rate 16 Blood Pressure 88/60 L Pulse Oximetry 09/24/21 14:00 09/24/21 15:20 09/24/21 16:00 Temperature 98.3 F Pulse Rate 69 76 71 Respiratory Rate 16 16 16 Blood Pressure 106/69 103/71 Pulse Oximetry 100 100 100 09/24/21 16:15 09/24/21 17:07 09/24/21 18:00 Temperature Pulse Rate 73 76 72 Respiratory Rate 16 16 Blood Pressure 117/78 Pulse Oximetry 100 100 09/24/21 19:27 09/24/21 19:30 09/24/21 19:39 Temperature Pulse Rate 76 75 77 Respiratory Rate 16 16 Blood Pressure Pulse Oximetry 100 09/24/21 19:51 09/24/21 19:59 09/24/21 20:00 Temperature 98.3 F Pulse Rate 75 76 77 Respiratory Rate 16 16 Blood Pressure 106/70 Pulse Oximetry 100 09/24/21 22:00 09/24/21 22:51 09/24/21
[2021-09-25] MEDS: EPOETIN ALFA-EPBX 10,000 UNITS/ML VIAL 10000 UNITS SUB-Q (13:03)
[2021-09-25] MEDS: ENOXAPARIN 100 MG/ML SYRINGE SUB-Q (13:03)
[2021-09-25] MEDS: PROPOFOL IV EMULSION 100 ML 14.51 MG IV CONT (14:17)
[2021-09-25] MEDS: CENTRAL LINE FLUSH 10 ML IV PUSH (17:02)
[2021-09-25 17:19] LABS: Glucose Point of Care 153 mg/dl (65-105)
[2021-09-25] MEDS: FENTANYL 2,500MCG/NS250ML(*CRX 2,500 MCG/250 ML BAG 17.5 MCG IV CONT (20:44)
[2021-09-25 21:03] LABS: Vancomycin Trough 20.7 ug/mL (10.0-20.0)
[2021-09-26] VITALS (38 sets, daily range): BP systolic 77–156; BP diastolic 45–98; PULSE 98–129; RESP 18–115; TEMP 36.1–37.5; O2SAT 96–100
[2021-09-26 01:23] LABS: Glucose Point of Care 141 mg/dl (65-105)
[2021-09-26] MEDS: LEVALBUTEROL NEB 1.25 MG/3 ML 0.63 MG INHALATION ×4 (02:08→20:01)
[2021-09-26] MEDS: IPRATROPIUM BR 0.02% INH SOLN 0.5 MG/2.5 ML VIAL INHALATION ×4 (02:08→20:01)
[2021-09-26 04:34] LABS: Hematocrit 32.2 % (37.0-47.0); Hemoglobin 9.9 g/dL (12.0-15.0); Mean Corpuscular HGB Conc 30.7 g/dl (32-36); Mean Corpuscular Hemoglobin 30.3 pg (26-34); Mean Corpuscular Volume 98.5 fl (80-100); Mean Platelet Volume 11.5 fl (7.4-10.4); Platelet Count Result 353 k/mm3 (150-375); Red Blood Count 3.27 M/mm3 (4.2-5.4); Red Cell Distribution Width 16.3 % (11.5-14.5); White Blood Count 12.6 K/mm3 (4.5-10.0)
[2021-09-26 04:49] LABS: Alanine Aminotransferase 20 U/L (4-35); Albumin Level 3.6 g/dL (3.5-5.1); Alkaline Phosphatase 193 U/L (38-126); Anion Gap 9 mmol/L (8-16); Aspartate Amino Transferase 31 U/L (14-36); Bilirubin,Total 1.1 mg/dL (0.2-1.3); Blood Urea Nitrogen 77 mg/dL (7-17); Calcium 9.1 mg/dL (8.4-10.2); Carbon Dioxide 24 mmol/L (22-30); Chloride 105 mmol/L (98-107); Estimated CRCL calculation 22 ml/min; Estimated Glomerular Filt Rate 16; Glucose 154 mg/dL (65-110); Phosphorus 5.4 mg/dL (2.5-4.5); Potassium 3.7 mmol/L (3.4-5.0); Sodium 138 mmol/L (137-145)
[2021-09-26 05:50] LABS: Atypical Lymphocytes Present; Band Neutrophils Percent 17 % (0-6); Eosinophils Absolute Manual 0.25 K/mm3 (0.02-0.5); Eosinophils Percent Manual 2 % (0-4); Lymphocytes Absolute Manual 1.63 K/mm3 (1.1-4.5); Metamyelocytes Percent 2 %; Monocytes Percent Manual 8 % (3-9); Neutrophils Absolute Manual 9.45 K/mm3 (1.7-7.2); Neutrophils Percent Manual 58 % (46-73); Platelet Estimate Adequate (Adequate); Total Cells Counted 100
[2021-09-26] MEDS: metroNIDAZOLE 250 MG TABLET 500 MG FEED TUBE ×3 (06:05→20:27)
[2021-09-26 06:24] LABS: Alveolar/Arterial O2 Gradient 49.1 mmHg; Base Excess ABG -2.6 mEq/l (+/-2.0); Carboxyhemoglobin 0.3 % THb (0-2.0); Device VENTILATOR; Fractional Inspired Oxygen 25 %; HCO3 ABG 22.1 mEq/l (22.0-26.0); Methemoglobin ABG 0.3 %THb (0-1.5); Modified Allen's Test Unable to perform; Oxygen Saturation ABG 96.3 % (95.0-100.0); Oxyhemoglobin 95.1 % THb (90.0-100.0); PCO2 ABG 37.7 mmHg (35.0-45.0); PO2 ABG 84.4 mmHg (80.0-100.0); PO2 FiO2 Ratio Arterial Blood 3.38 %; Reduced Hemoglobin 4.3 %THb (0-5.0); Site Drawn RIGHT RADIAL; Total Hemoglobin 10.4 g/dL (12.0-18.0); pH ABG 7.385 (7.350-7.450)
[2021-09-26 06:25] LABS: Arterial Blood Gas PEEP 5 cmH2O; Arterial Blood Gas Tidal Volume 400 ml; Arterial Blood Gas Vent Mode CMV; Arterial Blood Gas Ventilator rate 16 /MIN
--- NOTE | 2021-09-26 06:57 | P.PNNP_ITS ---
Progress Note: A&P Assessment and Plan (1) JERRY (acute kidney injury): Code(s): N17.9 - Acute kidney failure, unspecified Status: Acute Assessment and Plan: * due to ATN from: * hemorrhagic shock * contrast exposure * obstruction * evaluation to date: * renal ultrasound with evidence of obstruction - s/p nephrostomy tube placement * CPK mildly elevated (but not enough to affect kidney function) * urine electrolytes non-prerenal * Last dialysis was on Saturday. * Her creatinine has been stable at 3.1 for 3 days in a row. * Still making urine. * She has diarrhea as well. * Chest x-ray appears much better this time. * I think we should remove her Russell catheter and we could put a PermCath in down the line if she needs another treatment. (2) Bilateral hydronephrosis: Code(s): N13.30 - Unspecified hydronephrosis Status: Acute Assessment and Plan: * as noted by renal ultrasound * CT scan (09/02/20) with moderate bilateral hydronephrosis and hydroureter secondary to mass effect from the pelvic hematoma, worsened from 08/30/21 * s/p bilateral CT-guided nephrostomy tube placement on 09/02/20 * Urine is yellow and clear in both bags. * management per Urology (3) Anemia associated with acute blood loss: Code(s): D62 - Acute posthemorrhagic anemia Status: Deleted Assessment and Plan: * as noted by recent CT scan: * large hematoma in right pelvis extending into the peritoneum with two foci of active extravasation of contrast; hematomas in the rectus abdominis muscles, right worse than left * hemoglobin 9.9 again. Will hold off on EPO for now. (4) Hemorrhagic shock: Code(s): R57.8 - Other shock Status: Deleted Assessment and Plan: * resolved (5) Acute respiratory failure with hypoxia: Code(s): J96.01 - Acute respiratory failure with hypoxia Status: Acute Assessment and Plan: * Reintubated * Chest x-ray looks better. (6) Pneumonia due to COVID-19 virus: Code(s): U07.1 - COVID-19; J12.82 - Pneumonia due to coronavirus disease 2019 Status: Acute Assessment and Plan: * Isolation has ?timed out ?. (7) Pulmonary embolism: Qualifiers: Pulmonary embolism type: unspecified Chronicity: acute Acute cor p ulmonale presence: without acute cor pulmonale Qualified Code(s): I26.99 - Other pulmonary embolism without acute cor pulmonale Code(s): I26.99 - Other pulmonary embolism without acute cor pulmonale Status: Acute Assessment and Plan: * back on anticoagulants at a low dose Subjective Date/time seen: 09/26/21 06:57 Interval history: Patient is now in ICU on sedatives Sedatives were cut back and so norepinephrine was able to be stopped. Patient is unable to give a history or review of system Exam Narrative: General: WD/WN female in NAD Heart: normal S1 and S2; no rub or gallop Lungs: Mildly coarse breath sounds bilaterally Abdomen: soft, nontender, nondistended; RLQ bruising noted Extremities: minimal edemasis Skin: no rash or subcu nodules Objective Data Vital Signs Vital Signs: Vital Signs - 24 hr 09/25/21 07:46 09/25/21 07:47 09/25/21 07:49 Temperature Pulse Rate 83 83 97 Respiratory Rate 21 H 19 Blood Pressure 106/65 Pulse Oximetry 09/25/21
--- NOTE | 2021-09-26 06:57 | PM.PNNEP ---
Progress Note: A&P Assessment and Plan (1) JERRY (acute kidney injury): Code(s): N17.9 - Acute kidney failure, unspecified Status: Acute Assessment and Plan: due to ATN from: hemorrhagic shock contrast exposure obstruction evaluation to date: renal ultrasound with evidence of obstruction - s/p nephrostomy tube placement CPK mildly elevated (but not enough to affect kidney function) urine electrolytes non-prerenal Last dialysis was on Saturday. Her creatinine has been stable at 3.1 for 3 days in a row. Still making urine. She has diarrhea as well. Chest x-ray appears much better this time. I think we should remove her Russell catheter and we could put a PermCath in down the line if she needs another treatment. (2) Bilateral hydronephrosis: Code(s): N13.30 - Unspecified hydronephrosis Status: Acute Assessment and Plan: as noted by renal ultrasound CT scan (09/02/20) with moderate bilateral hydronephrosis and hydroureter secondary to mass effect from the pelvic hematoma, worsened from 08/30/21 s/p bilateral CT-guided nephrostomy tube placement on 09/02/20 Urine is yellow and clear in both bags. management per Urology (3) Anemia associated with acute blood loss: Code(s): D62 - Acute posthemorrhagic anemia Status: Deleted Assessment and Plan: as noted by recent CT scan: large hematoma in right pelvis extending into the peritoneum with two foci of active extravasation of contrast; hematomas in the rectus abdominis muscles, right worse than left hemoglobin 9.9 again. Will hold off on EPO for now. (4) Hemorrhagic shock: Code(s): R57.8 - Other shock Status: Deleted Assessment and Plan: resolved (5) Acute respiratory failure with hypoxia: Code(s): J96.01 - Acute respiratory failure with hypoxia Status: Acute Assessment and Plan: Reintubated Chest x-ray looks better. (6) Pneumonia due to COVID-19 virus: Code(s): U07.1 - COVID-19; J12.82 - Pneumonia due to coronavirus disease 2019 Status: Acute Assessment and Plan: Isolation has ?timed out ?. (7) Pulmonary embolism: Qualifiers: Pulmonary embolism type: unspecified Chronicity: acute Acute cor pulmonale presence: without acute cor pulmonale Qualified Code(s): I26.99 - Other pulmonary embolism without acute cor pulmonale Code(s): I26.99 - Other pulmonary embolism without acute cor pulmonale Status: Acute Assessment and Plan: back on anticoagulants at a low dose Subjective Date/time seen: 09/26/21 06:57 Interval history: Patient is now in ICU on sedatives Sedatives were cut back and so norepinephrine was able to be stopped. Patient is unable to give a history or review of system Exam Narrative: General: WD/WN female in NAD Heart: normal S1 and S2; no rub or gallop Lungs: Mildly coarse breath sounds bilaterally Abdomen: soft, nontender, nondistended; RLQ bruising noted Extremities: minimal edemasis Skin: no rash or subcu nodules Objective Data Vital Signs Vital Signs: Vital Signs - 24 hr 09/25/21 07:46 09/25/21 07:47 09/25/21 07:49 Temperature Pulse Rate 83 83 97 Respiratory Rate 21 H 19 Blood Pressure 106/65 Pulse Oximetry 09/25/21 07:53 09/25/21 07:54 09/25/21 08:00 Temperature 37.1 C Pulse Rate 99 103 H 93 Respiratory Rate 26 H 18 Blood Pressure 87/59 L Pulse Oximetry 100 100 09/25/21 08:04 09/25/21 08:18 09/25/21 08:20 Temperature Pulse Rate 95 93 107 H Respiratory Rate 21 H 17 Blood Pressure Pulse Oximetry 100 09/25/21 08:25 09/25/21 08:47 09/25/21 09:56 Temperature Pulse Rate 107 H 94 95 Respiratory Rate 16 17 17 Blood Pressure Pulse Oximetry 09/25/21 09:59 09/25/21 10:00 09/25/21 10:20 Temperature Pulse Rate 95 89 90 Respiratory Rate 16 16 Blood Pressure 99/81 L 87/56
[2021-09-26] MEDS: PROPOFOL IV EMULSION 100 ML 11.6 MG IV CONT (07:02)
[2021-09-26] MEDS: FAMOTIDINE 20 MG/2 ML VIAL IV PUSH (08:20)
[2021-09-26] MEDS: MINERAL OIL/WHITE PETROLATUM OINTMENT 1 APPLIC EACH EYE ×2 (08:21→20:27)
[2021-09-26] MEDS: DORNASE ALFA INH SOLN 1 MG/ML 2.5 ML AMP 2.5 MG INHALATION ×2 (08:27→20:01)
--- NOTE | 2021-09-26 09:35 | PCSTNOTE ---
Patient is being discharged this date after being intubated for the past three days and this morning. Patient has not been seen since evaluation on 09/22/21 due to intubation. Physician may re-order swallowing evaluation when patient is extubated and condition improves.
--- NOTE | 2021-09-26 12:17 | PCNFU ---
Nutrition Follow-Up Complete: Inadequate Oral Intake as related to mechanical vent as evidenced by NPO. goal: Meet estimated nutritional needs Patient will remain with current goal. Pt current nutrition is Nepro at 45 ml/hr over 22 hours with Protein Modular of Eloy BID. Last recorded weight is 96.6 kg, down from 100.3 kg on admit. Bowel Motility:+BM reported 09/23 Labs Reviewed:Glu 154, BUN 77, Cr 3.10,GFR 16,Hct 32.2,Hgb 9.9 Meds Noted:Versed,Fentanyl, Vancomycin, Pepcid, Levophed, Atrovent, Lopressor,Flagyl, Propofol 20 wcvt=688 kcals Skin: Deep Tissue-coccyx Additional Notes: Patient remains on mechanical vent and tube feedings of Nepro at 45 ml/hr providing 1782 kcals/80 gms protein/719 ml water. Propofol is providing an additional 306 kcals, plus Eloy BID: Caloric intake 2268 kcals/85 gms protein/719 ml water. Free water flush 30 ml q 4 hours. Will continue to monitor propofol titration for any tube feeding rate adjustments. Agree with diet orders at this time. Will monitor in ICU rounds and reassessing every Saturday and Saturday.
--- NOTE | 2021-09-26 12:24 | PM.PNCARD ---
Progress Note: A&P Assessment and Plan (1) Paroxysmal A-fib: Code(s): I48.0 - Paroxysmal atrial fibrillation Status: Acute Assessment and Plan: Patient currently in sinus rhythm. Continue present management for now. She is not a good anticoagulation candidate but was cautiously started back on anticoagulation per surgery. Management as tolerated given very complicated clinical course with extensive hematoma, splenic infarct, DVT and pulmonary embolism. Patient at high risk for thromboembolic and bleeding complications. Patient is extremely complicated. Patient remains critically ill. (2) Tachycardia: Code(s): R00.0 - Tachycardia, unspecified Status: Acute Assessment and Plan: Improved, maintaining sinus rhythm. Amiodarone has been discontinued at this point. She remains on metoprolol. Continue metoprolol as BP permits. (3) Pneumonia due to COVID-19 virus: Code(s): U07.1 - COVID-19; J12.82 - Pneumonia due to coronavirus disease 2019 Status: Acute Assessment and Plan: Per critical care. (4) Acute respiratory failure with hypoxia: Code(s): J96.01 - Acute respiratory failure with hypoxia Status: Acute Assessment and Plan: Remains intubated on mechanical ventilatory support. Management per critical service. Remains on IV antibiotics. (5) JERRY (acute kidney injury): Code(s): N17.9 - Acute kidney failure, unspecified Status: Acute Assessment and Plan: Last dialysis was on Saturday. Creatinine stable. Appreciate Nephrology involvement. (6) Acute DVT (deep venous thrombosis): Qualifiers: Affected thrombotic vein of extremity: femoral DVT location: lower extremity Laterality: left Qualified Code(s): I82.412 - Acute embolism and thrombosis of left femoral vein Code(s): I82.409 - Acute embolism and thrombosis of unspecified deep veins of unspecified lower extremity Status: Acute Assessment and Plan: Anticoagulation as tolerated. Defer to Critical Care Service in this regard. Subjective Date/time seen: 09/26/21 12:24 Interval history: Cardiology follow up for atrial tachycardia Date of service 09/26/2021: No acute events overnight. Remains intubated and sedated in the ICU. Attempts have been made to wean her from the ventilator with no success. Review of Systems Review of Systems: ROS unobtainable: Yes unobtainable due to medical condition and unobtainable due to mental status Exam Const: General: ill appearing Other: sedated, intubated HENMT: Mouth: Yes moist mucous membranes Eyes: Sclera: sclerae normal Neck: Neck: supple Other: obese neck Resp: Effort & Inspection: normal respiratory effort Other: breath sounds diffusely diminished, some central rhonchi Cardio: Rate: regular rate Rhythm: regular rhythm GI: Inspection: obesity Auscultation: normal bowel sounds Urinary Catheter: Urinary Catheter: other (bilateral nephrostomy bags with clear urine ) Skin: General skin exam: normal color Neuro: Other: Extrem: Other: No significant edema adequate distal pulses Psych: Appearance: other ( unable to assess due to sedation and intubation) Mental Status: other Objective Data Vital Signs Vital Signs: Vital Signs - 24 hr 09/25/21 12:34 09/25/21 12:52 09/25/21 12:55 Temperature Pulse Rate 93 90 87 Respiratory Rate 16 16 Blood Pressure 88/55 L Pulse Oximetry 09/25/21 14:00 09/25/21 14:11 09/25/21 14:17 Temperature Pulse Rate 104 H 97 105 H Respiratory Rate 17 16 16 Blood Pressure 104/81 Pulse Oximetry 100 09/25/21 14:25 09/25/21 15:18 09/25/21 16:00 Temperature 36.8 C Pulse Rate 97 100 93 Respiratory Rate 16 17 18 Blood Pressure 87/58 L Pulse Oximetry 100 100 09/25/21 16:22 09/25/21 18:00 09/25/21 19:51 Temperature Pulse Rate 97 95 102 H Respiratory Rate 16 Blood Pressure 89/65 L Pulse Oximetry 100 100
[2021-09-26] MEDS: ENOXAPARIN 100 MG/ML SYRINGE SUB-Q (13:01)
[2021-09-26] MEDS: PROPOFOL IV EMULSION 100 ML 14.51 MG IV CONT ×2 (13:07→18:01)
[2021-09-26 13:19] LABS: Glucose Point of Care 139 mg/dl (65-105)
--- NOTE | 2021-09-26 14:01 | WPDINTPN ---
Progress Note: A&P Assessment and Plan (1) Acute DVT (deep venous thrombosis): Qualifiers: DVT location: lower extremity Affected thrombotic vein of extremity: femoral Laterality: left Qualified Code(s): I82.412 - Acute embolism and thrombosis of left femoral vein Code(s): I82.409 - Acute embolism and thrombosis of unspecified deep veins of unspecified lower extremity Status: Acute Assessment and Plan: 09/22/2021 venous Dopplers: Acute deep vein thrombosis involving left common femoral vein. Some veins were not well evaluated due to patient motion. -08/25 - earlier this admission patient had PE and was started on anticoagulation and developed a large abdominal hematoma with hemorrhagic shock requiring multiple units of blood products, DDAVP and tranexamic acid - Anticoagulation was stopped at that time. Lower Extremity Dopplers were negative for DVT at that time -surgery consulted for IVC filter and they recommended trial of anticoagulation. Patient was started on Lovenox. Since patient has been on Lovenox for 2 days now and is tolerating with stable hemoglobin I will continue. -I will continue to monitor hemoglobin closely which has been stable for now (2) Acute respiratory failure with hypoxia: Code(s): J96.01 - Acute respiratory failure with hypoxia Status: Acute Assessment and Plan: Acute respiratory failure likely related to pneumonia, edema, possible PE as patient had atrial fibrillation RVR and has a history of PE recently Chest x-ray showed bilateral airspace disease which may represent pneumonia or edema -continue CMV mode of ventilation, 30% FiO2 and peep of 5. -continue bronchodilators -continue low tidal volume strategy to prevent volume trauma -sedated with fentanyl, and propofol -I performed a complete sedation holiday in patient quickly became tachypneic tachycardic and a synchronous with the ventilator leading to desaturation. Propofol was resumed but I will try to keep her off of fentanyl infusion (3) Sepsis: Code(s): A41.9 - Sepsis, unspecified organism Status: Deleted Assessment and Plan: Tachycardia, pneumonia, acute respiratory failure -09/23/2021: Sputum cultures negative, -09/23/2021 urine cultures growing Klebsiella oxytoca -09/23/2021 blood cultures negative x2 -started on cefepime and vancomycin (09/22/2021) -CT reviewed and there is small focus of air in the hematoma which could be a potential infection -continue current antibiotics at this time (4) JERRY (acute kidney injury): Code(s): N17.9 - Acute kidney failure, unspecified Status: Acute Assessment and Plan: Patient with acute kidney injury after abdominal hematoma compressing on ureters bilaterally. Patient required dialysis catheter placement and started on dialysis. -BUN creatinine still remain elevated patient is making urine -continue to monitor urine output, renal function electrolytes -nephrology following -last dialysis was 09/23/2021: Other dialysis per Nephrology -urology is following and at this time there is no plan to place ureteral stents. Patient has bilateral nephrostomy tubes which are draining (5) Anemia associated with acute blood loss: Code(s): D62 - Acute posthemorrhagic anemia Status: Deleted Assessment and Plan: Bleeding appears to have stopped and hemoglobin has been stable Repeat CT shows persistent large right pelvic hematoma and persistent hematoma in right rectus abdominus muscle (6) Pneumonia due to 2019-nCoV: Code(s): U07.1 - COVID-19; J12.82 - Pneumonia due to coronavirus disease 2019 Status: Deleted Assessment and Plan: Persistent but mildly improved infiltrates on CT (7) Pulmonary embolism: Qualifiers: Pulmonary embolism type: unspecified Chronicity: acute Acute cor pulmonale presence: without acute cor pulmonale Qualified Code(s): I26.99 - Other pulmonary embolism
[2021-09-26] MEDS: NOREPINEPHRINE 8 MG/D5W 250 ML 8 MG/250 ML BAG 9.38 MG IV CONT (15:28)
[2021-09-26 17:55] LABS: Glucose Point of Care 118 mg/dl (65-105)
[2021-09-26] MEDS: CENTRAL LINE FLUSH 10 ML IV PUSH (17:55)
[2021-09-26] MEDS: METOPROLOL TARTRATE 50 MG TAB PO (20:27)
[2021-09-27] VITALS (44 sets, daily range): BP systolic 64–170; BP diastolic 39–94; PULSE 77–121; RESP 16–28; TEMP 36.7–37.1; O2SAT 97–100
[2021-09-27 00:25] LABS: Glucose Point of Care 181 mg/dl (65-105)
[2021-09-27] MEDS: PROPOFOL IV EMULSION 100 ML 11.6 MG IV CONT (00:57)
[2021-09-27] MEDS: IPRATROPIUM BR 0.02% INH SOLN 0.5 MG/2.5 ML VIAL INHALATION ×4 (01:47→20:40)
[2021-09-27] MEDS: LEVALBUTEROL NEB 1.25 MG/3 ML 0.63 MG INHALATION ×4 (01:47→20:40)
[2021-09-27 04:34] LABS: Alveolar/Arterial O2 Gradient 69.8 mmHg; Base Excess ABG -3.4 mEq/l (+/-2.0); Carboxyhemoglobin 0.7 % THb (0-2.0); Fractional Inspired Oxygen 25 %; HCO3 ABG 19.9 mEq/l (22.0-26.0); Methemoglobin ABG 0.5 %THb (0-1.5); Oxygen Content ABG 17.8 %vol (16.0-22.0); Oxyhemoglobin 93.8 % THb (90.0-100.0); PCO2 ABG 30.9 mmHg (35.0-45.0); PO2 ABG 71.8 mmHg (80.0-100.0); PO2 FiO2 Ratio Arterial Blood 2.87 %; Total Hemoglobin 13.5 g/dL (12.0-18.0); pH ABG 7.427 (7.350-7.450)
[2021-09-27 04:35] LABS: Arterial Blood Gas PEEP 5 cmH2O; Arterial Blood Gas Tidal Volume 400 ml; Arterial Blood Gas Vent Mode CMV; Arterial Blood Gas Ventilator rate 16 /MIN; Device VENTILATOR; Modified Allen's Test Pass; Site Drawn RIGHT RADIAL
[2021-09-27 05:54] LABS: Hematocrit 28.8 % (37.0-47.0); Hemoglobin 9.1 g/dL (12.0-15.0); Mean Corpuscular HGB Conc 31.6 g/dl (32-36); Mean Corpuscular Hemoglobin 29.9 pg (26-34); Mean Corpuscular Volume 94.7 fl (80-100); Mean Platelet Volume 11.3 fl (7.4-10.4); Platelet Count Result 410 k/mm3 (150-375); Red Blood Count 3.04 M/mm3 (4.2-5.4); Red Cell Distribution Width 16.9 % (11.5-14.5); White Blood Count 17.4 K/mm3 (4.5-10.0)
[2021-09-27 06:07] LABS: Alanine Aminotransferase 23 U/L (4-35); Albumin Level 3.5 g/dL (3.5-5.1); Alkaline Phosphatase 174 U/L (38-126); Anion Gap 8 mmol/L (8-16); Aspartate Amino Transferase 42 U/L (14-36); Bilirubin,Total 0.8 mg/dL (0.2-1.3); Blood Urea Nitrogen 94 mg/dL (7-17); Calcium 9.2 mg/dL (8.4-10.2); Carbon Dioxide 23 mmol/L (22-30); Chloride 103 mmol/L (98-107); Estimated CRCL calculation 21 ml/min; Estimated Glomerular Filt Rate 15; Glucose 155 mg/dL (65-110); Magnesium 2.1 mg/dL (1.6-2.3); Phosphorus 3.9 mg/dL (2.5-4.5); Potassium 3.3 mmol/L (3.4-5.0); Sodium 134 mmol/L (137-145)
[2021-09-27] MEDS: metroNIDAZOLE 250 MG TABLET 500 MG FEED TUBE ×3 (06:25→22:53)
--- NOTE | 2021-09-27 07:01 | P.PNNP_ITS ---
Progress Note: A&P Assessment and Plan (1) JERRY (acute kidney injury): Code(s): N17.9 - Acute kidney failure, unspecified Status: Acute Assessment and Plan: * due to ATN from: * hemorrhagic shock * contrast exposure * obstruction * evaluation to date: * renal ultrasound with evidence of obstruction - s/p nephrostomy tube placement * CPK mildly elevated (but not enough to affect kidney function) * urine electrolytes non-prerenal * Last dialysis was on Saturday. * Her creatinine is up to 3.3 today. BUN is up to 94. * Still making urine. * She has diarrhea as well. * Chest x-ray waxing and waning infiltrates, caps technique. * With a higher BUN and creatinine now will leave the Russell in, do a dialysis tomorrow, and then have surgeons put in a PermCath. (2) Bilateral hydronephrosis: Code(s): N13.30 - Unspecified hydronephrosis Status: Acute Assessment and Plan: * as noted by renal ultrasound * CT scan (09/02/20) with moderate bilateral hydronephrosis and hydroureter secondary to mass effect from the pelvic hematoma, worsened from 08/30/21 * s/p bilateral CT-guided nephrostomy tube placement on 09/02/20 * Urine is yellow and clear in both bags. * management per Urology (3) Anemia associated with acute blood loss: Code(s): D62 - Acute posthemorrhagic anemia Status: Deleted Assessment and Plan: * as noted by recent CT scan: * large hematoma in right pelvis extending into the peritoneum with two foci of active extravasation of contrast; hematomas in the rectus abdominis muscles, right worse than left * hemoglobin pending (4) Hemorrhagic shock: Code(s): R57.8 - Other shock Status: Deleted Assessment and Plan: * resolved (5) Acute respiratory failure with hypoxia: Code(s): J96.01 - Acute respiratory failure with hypoxia Status: Acute Assessment and Plan: * Reintubated (6) Pneumonia due to COVID-19 virus: Code(s): U07.1 - COVID-19; J12.82 - Pneumonia due to coronavirus disease 2019 Status: Acute Assessment and Plan: * Isolation has ?timed out ?. (7) Pulmonary embolism: Qualifiers: Pulmonary embolism type: unspecified Chronicity: acute Acute cor pulmonale presence: without acute cor pulmonale Qualified Code(s): I26.99 - Other pulmonary embolism without acute cor pulmonale Code(s): I26.99 - Other pulmonary embolism without acute cor pulmonale Status: Acute Assessment and Plan: * back on anticoagulants at a low dose Subjective Date/time seen: 09/27/21 07:01 Interval history: Patient is on propofol. Off pressors. Patient is unable to give a history or review of system Exam Narrative: General: WD/WN female in NAD Heart: normal S1 and S2; no rub or gallop Lungs: Mildly coarse breath sounds bilaterally Abdomen: soft, nontender, nondistended; RLQ bruising noted Extremities: minimal edemasis Skin: no rash or subcu nodules Objective Data Vital Signs Vital Signs: Vital Signs - 24 hr 09/26/21 07:02 09/26/21 08:00 09/26/21 08:20 Temperature 36.1 C L Pulse Rate 111 H 122 H 118 H Respiratory Rate 24 H 24 H 24 H Blood Pressure 113/70 Pulse Oximetry 99 09/26/21 08:28 09/26/21 08:33 09/26/21 10:00 Temperature Pulse R
--- NOTE | 2021-09-27 07:01 | PM.PNNEP ---
Progress Note: A&P Assessment and Plan (1) JERRY (acute kidney injury): Code(s): N17.9 - Acute kidney failure, unspecified Status: Acute Assessment and Plan: due to ATN from: hemorrhagic shock contrast exposure obstruction evaluation to date: renal ultrasound with evidence of obstruction - s/p nephrostomy tube placement CPK mildly elevated (but not enough to affect kidney function) urine electrolytes non-prerenal Last dialysis was on Saturday. Her creatinine is up to 3.3 today. BUN is up to 94. Still making urine. She has diarrhea as well. Chest x-ray waxing and waning infiltrates, caps technique. With a higher BUN and creatinine now will leave the Russell in, do a dialysis tomorrow, and then have surgeons put in a PermCath. (2) Bilateral hydronephrosis: Code(s): N13.30 - Unspecified hydronephrosis Status: Acute Assessment and Plan: as noted by renal ultrasound CT scan (09/02/20) with moderate bilateral hydronephrosis and hydroureter secondary to mass effect from the pelvic hematoma, worsened from 08/30/21 s/[address]-guided nephrostomy tube placement on 09/02/20 Urine is yellow and clear in both bags. management per Urology (3) Anemia associated with acute blood loss: Code(s): D62 - Acute posthemorrhagic anemia Status: Deleted Assessment and Plan: as noted by recent CT scan: large hematoma in right pelvis extending into the peritoneum with two foci of active extravasation of contrast; hematomas in the rectus abdominis muscles, right worse than left hemoglobin pending (4) Hemorrhagic shock: Code(s): R57.8 - Other shock Status: Deleted Assessment and Plan: resolved (5) Acute respiratory failure with hypoxia: Code(s): J96.01 - Acute respiratory failure with hypoxia Status: Acute Assessment and Plan: Reintubated (6) Pneumonia due to COVID-19 virus: Code(s): U07.1 - COVID-19; J12.82 - Pneumonia due to coronavirus disease 2019 Status: Acute Assessment and Plan: Isolation has ?timed out ?. (7) Pulmonary embolism: Qualifiers: Pulmonary embolism type: unspecified Chronicity: acute Acute cor pulmonale presence: without acute cor pulmonale Qualified Code(s): I26.99 - Other pulmonary embolism without acute cor pulmonale Code(s): I26.99 - Other pulmonary embolism without acute cor pulmonale Status: Acute Assessment and Plan: back on anticoagulants at a low dose Subjective Date/time seen: 09/27/21 07:01 Interval history: Patient is on propofol. Off pressors. Patient is unable to give a history or review of system Exam Narrative: General: WD/WN female in NAD Heart: normal S1 and S2; no rub or gallop Lungs: Mildly coarse breath sounds bilaterally Abdomen: soft, nontender, nondistended; RLQ bruising noted Extremities: minimal edemasis Skin: no rash or subcu nodules Objective Data Vital Signs Vital Signs: Vital Signs - 24 hr 09/26/21 07:02 09/26/21 08:00 09/26/21 08:20 Temperature 36.1 C L Pulse Rate 111 H 122 H 118 H Respiratory Rate 24 H 24 H 24 H Blood Pressure 113/70 Pulse Oximetry 99 09/26/21 08:28 09/26/21 08:33 09/26/21 10:00 Temperature Pulse Rate 118 H 119 H 113 H Respiratory Rate 24 H 19 Blood Pressure 86/54 L Pulse Oximetry 98 98 09/26/21 11:51 09/26/21 12:00 09/26/21 13:07 Temperature 37.2 C Pulse Rate 106 H 120 H 115 H Respiratory Rate 21 H 115 H Blood Pressure 112/98 H Pulse Oximetry 98 98 09/26/21 13:15 09/26/21 14:00 09/26/21 14:17 Temperature Pulse Rate 120 H 123 H 122 H Respiratory Rate 21 H Blood Pressure 112/88 156/83 H 156/83 H Pulse Oximetry 98 09/26/21 14:43 09/26/21 15:28 09/26/21 16:00 Temperature 37.3 C Pulse Rate 123 H 127 H 111 H Respiratory Rate 20 Blood Pressure 110/73 81/56 L Pulse Oximetry 97 96
[2021-09-27 07:35] LABS: Band Neutrophils Percent 8 % (0-6); Eosinophils Absolute Manual 0.17 K/mm3 (0.02-0.5); Eosinophils Percent Manual 1 % (0-4); Lymphocytes Absolute Manual 2.95 K/mm3 (1.1-4.5); Monocytes Absolute Manual 1.21 K/mm3 (0.1-0.90); Monocytes Percent Manual 7 % (3-9); Neutrophils Absolute Manual 13.05 K/mm3 (1.7-7.2); Neutrophils Percent Manual 67 % (46-73); Nucleated Red Blood Cells 2 %; Platelet Estimate Adequate (Adequate); Total Cells Counted 100
[2021-09-27 07:36] LABS: Anisocytosis 1+ (NORMAL)
[2021-09-27] MEDS: PROPOFOL IV EMULSION 100 ML 17.41 MG IV CONT (07:45)
--- NOTE | 2021-09-27 08:15 | WPDINTPN ---
Progress Note: A&P Assessment and Plan (1) Acute DVT (deep venous thrombosis): Qualifiers: DVT location: lower extremity Affected thrombotic vein of extremity: femoral Laterality: left Qualified Code(s): I82.412 - Acute embolism and thrombosis of left femoral vein Code(s): I82.409 - Acute embolism and thrombosis of unspecified deep veins of unspecified lower extremity Status: Acute Assessment and Plan: 09/22/2021 venous Dopplers: Acute deep vein thrombosis involving left common femoral vein. Some veins were not well evaluated due to patient motion. -08/25 - earlier this admission patient had PE and was started on anticoagulation and developed a large abdominal hematoma with hemorrhagic shock requiring multiple units of blood products, DDAVP and tranexamic acid - Anticoagulation was stopped at that time. Lower Extremity Dopplers were negative for DVT at that time -surgery consulted for IVC filter and they recommended trial of anticoagulation. Patient was started on Lovenox. Since patient has been on Lovenox for 2 days now and is tolerating with stable hemoglobin I will continue. -I will continue to monitor hemoglobin closely which has been stable for now (2) Acute respiratory failure with hypoxia: Code(s): J96.01 - Acute respiratory failure with hypoxia Status: Acute Assessment and Plan: Acute respiratory failure likely related to pneumonia, edema, possible PE as patient had atrial fibrillation RVR and has a history of PE recently Chest x-ray showed bilateral airspace disease which may represent pneumonia or edema -continue CMV mode of ventilation, 30% FiO2 and peep of 5. -continue bronchodilators -continue low tidal volume strategy to prevent volume trauma -sedated with propofol. I performed a complete sedation holiday in patient quickly became tachypneic tachycardic and a synchronous with the ventilator leading to desaturation. -I will start patient on Precedex -unfortunately not a candidate for weaning at this time (3) Sepsis: Code(s): A41.9 - Sepsis, unspecified organism Status: Deleted Assessment and Plan: Tachycardia, pneumonia, acute respiratory failure -09/23/2021: Sputum cultures Pseudomonas -susceptibilities are pending -09/23/2021 urine cultures growing Klebsiella oxytoca -09/23/2021 blood cultures negative x2 -CT reviewed and there is small focus of air in the hematoma which could be a potential infection -started on cefepime and vancomycin (09/22/2021), Flagyl added 09/24 -continue current antibiotics at this time (4) JERRY (acute kidney injury): Code(s): N17.9 - Acute kidney failure, unspecified Status: Acute Assessment and Plan: Patient with acute kidney injury after abdominal hematoma compressing on ureters bilaterally. Patient required dialysis catheter placement and started on dialysis. -BUN creatinine still remain elevated patient is making urine -continue to monitor urine output, renal function electrolytes -nephrology following -last dialysis was 09/23/2021: Will discuss with Nephrology regarding dialysis for volume otherwise will plan to remove dialysis catheter -replace low potassium -urology is following and at this time there is no plan to place ureteral stents. Patient has bilateral nephrostomy tubes which are draining (5) Anemia associated with acute blood loss: Code(s): D62 - Acute posthemorrhagic anemia Status: Deleted Assessment and Plan: Bleeding appears to have stopped and hemoglobin has been stable Repeat CT shows persistent large right pelvic hematoma and persistent hematoma in right rectus abdominus muscle (6) Pneumonia due to 2019-nCoV: Code(s): U07.1 - COVID-19; J12.82 - Pneumonia due to coronavirus disease 2019 Status: Deleted Assessment and Plan: Persistent but mildly improved infiltrates on CT (7) Pulmonary embolism: Qualifiers: Pulmonary embolism
[2021-09-27] MEDS: dexmedeTOMIDine 400 MCG/100 ML 400 MCG/100 ML BAG IV CONT (09:28)
[2021-09-27] MEDS: POTASSIUM CHLORIDE 20 MEQ PACKET (FOR LIQUID) 40 MEQ FEED TUBE (09:28)
[2021-09-27] MEDS: FAMOTIDINE 20 MG/2 ML VIAL IV PUSH (09:28)
[2021-09-27] MEDS: METOPROLOL TARTRATE 50 MG TAB PO (09:29)
[2021-09-27] MEDS: MINERAL OIL/WHITE PETROLATUM OINTMENT 1 APPLIC EACH EYE ×2 (09:29→22:01)
--- NOTE | 2021-09-27 09:44 | PCFNICU ---
ICU Rounding Note: Pt current nutrition is Nepro at 45 ml/hr over 22 hours. Last recorded weight is 97.1 kg-stable Bowel Motility:+BM reported 09/23 Labs Reviewed:Glu 155, BUN 94, GFR 15, K 3.3,Na 134 Meds Noted:Levophed, Propofol 30 mics =421 kcals, Precedex, Pepcid, Atrovent, Lopressor, Flagyl. Skin: Deep Tissue-coccyx Additional Notes: Patient remains on mechanical vent and tube feedings of Nepro at 45 ml/hr over 22 hours. Free water flush 30 ml q 4 hours. Plans for Dialysis 2/3. Spoke with nursing today, regarding last BM on 09/23. Recommending Miralax. Sedation changed to Precedex today with plans to wean propofol. Agree with diet orders. Following daily in ICU rounds. Will reassess every Saturday and Saturday.
[2021-09-27 12:09] LABS: Glucose Point of Care 119 mg/dl (65-105)
[2021-09-27] MEDS: PROPOFOL IV EMULSION 100 ML 20.31 MG IV CONT (12:41)
[2021-09-27] MEDS: polyethylene glycoL 3350 17 GM POWD.PACK PO (12:42)
[2021-09-27] MEDS: EPOETIN ALFA-EPBX 10,000 UNITS/ML VIAL 10000 UNITS SUB-Q (14:15)
[2021-09-27] MEDS: ENOXAPARIN 100 MG/ML SYRINGE SUB-Q (14:15)
[2021-09-27] MEDS: dexmedeTOMIDine 400 MCG/100 ML 400 MCG/100 ML BAG 16.99 MCG IV CONT ×2 (17:01→22:03)
[2021-09-27] MEDS: NOREPINEPHRINE 8 MG/D5W 250 ML 8 MG/250 ML BAG 22.5 MG IV CONT (17:02)
[2021-09-27] MEDS: CENTRAL LINE FLUSH 10 ML IV PUSH (17:04)
[2021-09-27 18:38] LABS: Glucose Point of Care 171 mg/dl (65-105)
[2021-09-27] MEDS: PROPOFOL IV EMULSION 100 ML 8.7 MG IV CONT (18:49)
[2021-09-28] VITALS (55 sets, daily range): BP systolic 65–128; BP diastolic 46–81; PULSE 80–111; RESP 17–45; TEMP 36.3–36.7; O2SAT 96–100
[2021-09-28 00:23] LABS: Glucose Point of Care 189 mg/dl (65-105)
[2021-09-28] MEDS: LEVALBUTEROL NEB 1.25 MG/3 ML 0.63 MG INHALATION ×4 (01:14→19:57)
[2021-09-28] MEDS: IPRATROPIUM BR 0.02% INH SOLN 0.5 MG/2.5 ML VIAL INHALATION ×4 (01:15→19:57)
[2021-09-28] MEDS: dexmedeTOMIDine 400 MCG/100 ML 400 MCG/100 ML BAG 16.99 MCG IV CONT ×4 (03:26→20:50)
[2021-09-28 04:34] LABS: Hematocrit 30.6 % (37.0-47.0); Hemoglobin 9.6 g/dL (12.0-15.0); Mean Corpuscular HGB Conc 31.4 g/dl (32-36); Mean Corpuscular Hemoglobin 30.1 pg (26-34); Mean Corpuscular Volume 95.9 fl (80-100); Mean Platelet Volume 11.5 fl (7.4-10.4); Platelet Count Result 446 k/mm3 (150-375); Red Blood Count 3.19 M/mm3 (4.2-5.4); Red Cell Distribution Width 17.1 % (11.5-14.5); White Blood Count 18.5 K/mm3 (4.5-10.0)
[2021-09-28 04:46] LABS: Alanine Aminotransferase 30 U/L (4-35); Albumin Level 3.4 g/dL (3.5-5.1); Alkaline Phosphatase 163 U/L (38-126); Anion Gap 8 mmol/L (8-16); Aspartate Amino Transferase 56 U/L (14-36); Bilirubin,Total 0.8 mg/dL (0.2-1.3); Blood Urea Nitrogen 106 mg/dL (7-17); Calcium 10.2 mg/dL (8.4-10.2); Carbon Dioxide 23 mmol/L (22-30); Chloride 102 mmol/L (98-107); Estimated CRCL calculation 21 ml/min; Estimated Glomerular Filt Rate 15; Glucose 232 mg/dL (65-110); Magnesium 2.1 mg/dL (1.6-2.3); Sodium 133 mmol/L (137-145)
[2021-09-28 05:20] LABS: Alveolar/Arterial O2 Gradient 45.7 mmHg; Base Excess ABG -1.7 mEq/l (+/-2.0); Carboxyhemoglobin 0.2 % THb (0-2.0); Fractional Inspired Oxygen 25 %; HCO3 ABG 22.2 mEq/l (22.0-26.0); Methemoglobin ABG 0.3 %THb (0-1.5); Oxygen Content ABG 16.6 %vol (16.0-22.0); Oxygen Saturation ABG 97.2 % (95.0-100.0); Oxyhemoglobin 96.3 % THb (90.0-100.0); PCO2 ABG 34.8 mmHg (35.0-45.0); PO2 ABG 91.2 mmHg (80.0-100.0); PO2 FiO2 Ratio Arterial Blood 3.65 %; Reduced Hemoglobin 3.2 %THb (0-5.0); Site Drawn RIGHT RADIAL; Total Hemoglobin 12.2 g/dL (12.0-18.0); pH ABG 7.423 (7.350-7.450)
[2021-09-28 05:21] LABS: Arterial Blood Gas PEEP 5 cmH2O; Arterial Blood Gas Tidal Volume 400 ml; Arterial Blood Gas Vent Mode CMV; Arterial Blood Gas Ventilator rate 16 /MIN; Device VENTILATOR; Modified Allen's Test Pass
[2021-09-28] MEDS: PROPOFOL IV EMULSION 100 ML 17.41 MG IV CONT ×3 (05:44→16:52)
[2021-09-28] MEDS: metroNIDAZOLE 250 MG TABLET 500 MG FEED TUBE ×3 (06:53→22:21)
[2021-09-28] MEDS: INSULIN ASPART (*BKC) 100 UNITS/ML SUB-Q (06:53)
[2021-09-28] MEDS: FAMOTIDINE 20 MG/2 ML VIAL IV PUSH (07:41)
[2021-09-28] MEDS: NOREPINEPHRINE 8 MG/D5W 250 ML 8 MG/250 ML BAG 13.13 MG IV CONT (07:41)
[2021-09-28] MEDS: METOPROLOL TARTRATE 50 MG TAB PO ×2 (08:11→20:45)
[2021-09-28] MEDS: MINERAL OIL/WHITE PETROLATUM OINTMENT 1 APPLIC EACH EYE ×2 (08:12→20:46)
[2021-09-28] MEDS: INSULIN GLARGINE (*BKC) 100 UNITS/ML 10 UNITS SUB-Q (08:30)
[2021-09-28 08:51] LABS: Vancomycin Trough 23.3 ug/mL (10.0-20.0)
--- NOTE | 2021-09-28 11:42 | WPDINTPN ---
Progress Note: A&P Assessment and Plan (1) Acute DVT (deep venous thrombosis): Qualifiers: DVT location: lower extremity Affected thrombotic vein of extremity: femoral Laterality: left Qualified Code(s): I82.412 - Acute embolism and thrombosis of left femoral vein Code(s): I82.409 - Acute embolism and thrombosis of unspecified deep veins of unspecified lower extremity Status: Acute Assessment and Plan: 09/22/2021 venous Dopplers: Acute deep vein thrombosis involving left common femoral vein. Some veins were not well evaluated due to patient motion. -08/25 - earlier this admission patient had PE and was started on anticoagulation and developed a large abdominal hematoma with hemorrhagic shock requiring multiple units of blood products, DDAVP and tranexamic acid - Anticoagulation was stopped at that time. Lower Extremity Dopplers were negative for DVT at that time -surgery consulted for IVC filter and they recommended trial of anticoagulation. Patient was started on Lovenox. Since patient has been on Lovenox for 2 days now and is tolerating with stable hemoglobin I will continue. -I will continue to monitor hemoglobin closely which has been stable for now (2) Acute respiratory failure with hypoxia: Code(s): J96.01 - Acute respiratory failure with hypoxia Status: Acute Assessment and Plan: Initial Intubation 08/30 Extubated 09/14 Reintubated 09/22 Acute respiratory failure likely related to pneumonia, edema, possible PE as patient had atrial fibrillation RVR and has a history of PE recently Chest x-ray showed bilateral airspace disease which may represent pneumonia or edema -continue CMV mode of ventilation, 30% FiO2 and peep of 5. -continue bronchodilators -continue low tidal volume strategy to prevent volume trauma -sedated with propofol. I performed a complete sedation holiday in patient quickly became tachypneic tachycardic and a synchronous with the ventilator leading to desaturation. -I have started patient on Precedex. Will re-attempt sedation holiday after hemodialysis -unfortunately not a candidate for weaning at this time (3) Sepsis: Code(s): A41.9 - Sepsis, unspecified organism Status: Deleted Assessment and Plan: Tachycardia, pneumonia, acute respiratory failure -09/23/2021: Sputum cultures Pseudomonas -susceptibilities are pending -09/23/2021 urine cultures growing Klebsiella oxytoca -09/23/2021 blood cultures negative x2 -CT reviewed and there is small focus of air in the hematoma which could be a potential infection -started on cefepime and vancomycin (09/22/2021), Flagyl added 09/24 -continue current antibiotics at this time -she is afebrile but her WBC count has increased (4) JERRY (acute kidney injury): Code(s): N17.9 - Acute kidney failure, unspecified Status: Acute Assessment and Plan: Patient with acute kidney injury after abdominal hematoma compressing on ureters bilaterally. Patient required dialysis catheter placement and started on dialysis. -BUN creatinine still remain elevated patient is making urine -continue to monitor urine output, renal function electrolytes -nephrology following -last dialysis was 09/23/2021: Discussed with Nephrology regarding dialysis. Plan to do another session of hemodialysis today and remove temporary dialysis catheter. If patient continues to need hemodialysis then nephrology plans to place a tunnelled dialysis catheter -urology is following and at this time there is no plan to place ureteral stents. Patient has bilateral nephrostomy tubes which are draining (5) Anemia associated with acute blood loss: Code(s): D62 - Acute posthemorrhagic anemia Status: Deleted Assessment and Plan: Bleeding appears to have stopped and hemoglobin has been stable Repeat CT shows persistent large right pelvic hematoma and persistent hematoma in right rectus abdominus muscle (6) Pneumonia d
[2021-09-28 11:49] LABS: Glucose Point of Care 169 mg/dl (65-105)
--- NOTE | 2021-09-28 12:26 | P.PNNP_ITS ---
Progress Note: A&P Assessment and Plan (1) JERRY (acute kidney injury): Code(s): N17.9 - Acute kidney failure, unspecified Status: Acute Assessment and Plan: * due to ATN from: * hemorrhagic shock * contrast exposure * obstruction * evaluation to date: * renal ultrasound with evidence of obstruction - s/p nephrostomy tube placement * CPK mildly elevated (but not enough to affect kidney function) * urine electrolytes non-prerenal * Her BUN and creatinine are rising. Will get a dialysis today. * Still making urine. She made 2100cc yesterday. * She has diarrhea as well. * Chest x-ray basically stable. * Will ask surgery to place a PermCath tomorrow (2) Bilateral hydronephrosis: Code(s): N13.30 - Unspecified hydronephrosis Status: Acute Assessment and Plan: * as noted by renal ultrasound * CT scan (09/02/20) with moderate bilateral hydronephrosis and hydroureter secondary to mass effect from the pelvic hematoma, worsened from 08/30/21 * s/p bilateral CT-guided nephrostomy tube placement on 09/02/20 * Urine is yellow and clear in both bags. * management per Urology (3) Anemia associated with acute blood loss: Code(s): D62 - Acute posthemorrhagic anemia Status: Deleted Assessment and Plan: * follow H&H. * Back on anticoagulants. * Hemoglobin is stable. * On Epogen (4) Hemorrhagic shock: Code(s): R57.8 - Other shock Status: Deleted Assessment and Plan: * resolved (5) Acute respiratory failure with hypoxia: Code(s): J96.01 - Acute respiratory failure with hypoxia Status: Acute Assessment and Plan: * Reintubated (6) Pneumonia due to COVID-19 virus: Code(s): U07.1 - COVID-19; J12.82 - Pneumonia due to coronavirus disease 2019 Status: Acute Assessment and Plan: * Isolation has ?timed out ?. (7) Pulmonary embolism: Qualifiers: Pulmonary embolism type: unspecified Chronicity: acute Acute cor pulmonale presence: without acute cor pulmonale Qualified Code(s): I26.99 - Other pulmonary embolism without acute cor pulmonale Code(s): I26.99 - Other pulmonary embolism without acute cor pulmonale Status: Acute Assessment and Plan: * back on anticoagulants at a low dose Subjective Date/time seen: 09/28/21 12:26 Interval history: Patient is on propofol. Off pressors. looks comfortable Patient is unable to give a history or review of system Exam Narrative: General: WD/WN female in NAD Heart: normal S1 and S2; no rub Lungs: symmetric and coarse breath sounds Abdomen: soft, nontender, nondistended; RLQ bruising noted Extremities: minimal edemasis Skin: no rash Objective Data Vital Signs Vital Signs: Vital Signs - 24 hr 09/27/21 12:40 09/27/21 12:45 09/27/21 13:00 Temperature Pulse Rate 80 Respiratory Rate Blood Pressure 64/39 L 91/60 L 88/57 L Pulse Oximetry 09/27/21 13:30 09/27/21 13:52 09/27/21 14:00 Temperature Pulse Rate 80 80 Respiratory Rate 21 H 28 H Blood Pressure 92/56 L 90/56 L Pulse Oximetry 98 98 09/27/21 14:03 09/27/21 14:16 09/27/21 14:46 Temperature Pulse Rate 86 81 80 Respiratory
--- NOTE | 2021-09-28 12:26 | PM.PNNEP ---
Progress Note: A&P Assessment and Plan (1) JERRY (acute kidney injury): Code(s): N17.9 - Acute kidney failure, unspecified Status: Acute Assessment and Plan: due to ATN from: hemorrhagic shock contrast exposure obstruction evaluation to date: renal ultrasound with evidence of obstruction - s/p nephrostomy tube placement CPK mildly elevated (but not enough to affect kidney function) urine electrolytes non-prerenal Her BUN and creatinine are rising. Will get a dialysis today. Still making urine. She made 2100cc yesterday. She has diarrhea as well. Chest x-ray basically stable. Will ask surgery to place a PermCath tomorrow (2) Bilateral hydronephrosis: Code(s): N13.30 - Unspecified hydronephrosis Status: Acute Assessment and Plan: as noted by renal ultrasound CT scan (09/02/20) with moderate bilateral hydronephrosis and hydroureter secondary to mass effect from the pelvic hematoma, worsened from 08/30/[address] s/[address]-guided nephrostomy tube placement on 09/02/20 Urine is yellow and clear in both bags. management per Urology (3) Anemia associated with acute blood loss: Code(s): D62 - Acute posthemorrhagic anemia Status: Deleted Assessment and Plan: follow H&H. Back on anticoagulants. Hemoglobin is stable. On Epogen (4) Hemorrhagic shock: Code(s): R57.8 - Other shock Status: Deleted Assessment and Plan: resolved (5) Acute respiratory failure with hypoxia: Code(s): J96.01 - Acute respiratory failure with hypoxia Status: Acute Assessment and Plan: Reintubated (6) Pneumonia due to COVID-19 virus: Code(s): U07.1 - COVID-19; J12.82 - Pneumonia due to coronavirus disease 2019 Status: Acute Assessment and Plan: Isolation has ?timed out ?. (7) Pulmonary embolism: Qualifiers: Pulmonary embolism type: unspecified Chronicity: acute Acute cor pulmonale presence: without acute cor pulmonale Qualified Code(s): I26.99 - Other pulmonary embolism without acute cor pulmonale Code(s): I26.99 - Other pulmonary embolism without acute cor pulmonale Status: Acute Assessment and Plan: back on anticoagulants at a low dose Subjective Date/time seen: 09/28/21 12:26 Interval history: Patient is on propofol. Off pressors. looks comfortable Patient is unable to give a history or review of system Exam Narrative: General: WD/WN female in NAD Heart: normal S1 and S2; no rub Lungs: symmetric and coarse breath sounds Abdomen: soft, nontender, nondistended; RLQ bruising noted Extremities: minimal edemasis Skin: no rash Objective Data Vital Signs Vital Signs: Vital Signs - 24 hr 09/27/21 12:40 09/27/21 12:45 09/27/21 13:00 Temperature Pulse Rate 80 Respiratory Rate Blood Pressure 64/39 L 91/60 L 88/57 L Pulse Oximetry 09/27/21 13:30 09/27/21 13:52 09/27/21 14:00 Temperature Pulse Rate 80 80 Respiratory Rate 21 H 28 H Blood Pressure 92/56 L 90/56 L Pulse Oximetry 98 98 09/27/21 14:03 09/27/21 14:16 09/27/21 14:46 Temperature Pulse Rate 86 81 80 Respiratory Rate 22 H Blood Pressure 90/56 L 117/72 Pulse Oximetry 09/27/21 16:00 09/27/21 17:02 09/27/21 17:15 Temperature 36.9 C Pulse Rate 80 80 83 Respiratory Rate 26 H Blood Pressure 107/72 117/72 Pulse Oximetry 99 99 09/27/21 18:00 09/27/21 18:50 09/27/21 20:00 Temperature 36.7 C Pulse Rate 79 77 79 Respiratory Rate 24 H 23 H Blood Pressure 115/72 112/71 115/70 Pulse Oximetry 99 99 09/27/21 20:30 09/27/21 20:40 09/27/21 20:51 Temperature Pulse Rate 79 79 82 Respiratory Rate 19 21 H Blood Pressure Pulse Oximetry 99 09/27/21 21:00 09/27/21 22:00 09/27/21 22:03 Temperature Pulse Rate 82 81 85 Respiratory Rate 18 19 20 Blood Pressure 108/69 111/77 Pulse Oxim
[2021-09-28] MEDS: ENOXAPARIN 100 MG/ML SYRINGE SUB-Q (13:35)
--- NOTE | 2021-09-28 14:07 | PCFNICU ---
ICU Rounding Note: Pt current nutrition is Nepro at 45 ml/hr over 22 hours Last recorded weight is 100.1 kg. Bowel Motility:+ BM reported 2/3 Labs Reviewed: BUN 106,Cr 3.3,Alb 3.4,Hgb 9.6,Hct 30.6 Meds Noted:Precedex,Lovenox,Pepcid, Retacrit,Atrovent,NovoLog,Levophed,Propofol 30 mics= 460 kcals, Lopressor. Skin:Deep Tissue-coccyx Additional Notes: Spoke with nursing today, patient remains on mechanical vent and tube feedings of Nepro at 45 ml/hr and tolerating. Propofol is providing an additional 460 kcals. Free water flush 30 ml q 4 hours. Agree with diet orders. Following daily in ICU rounds. Will monitor every Saturday and Saturday..
[2021-09-28] MEDS: CENTRAL LINE FLUSH 10 ML IV PUSH (17:00)
[2021-09-28 17:33] LABS: Glucose Point of Care 151 mg/dl (65-105)
[2021-09-28] MEDS: PROPOFOL IV EMULSION 100 ML 29.01 MG IV CONT (20:40)
[2021-09-29] VITALS (58 sets, daily range): BP systolic 74–123; BP diastolic 51–76; PULSE 90–130; RESP 19–41; TEMP 36.4–38; O2SAT 95–99
[2021-09-29] MEDS: PROPOFOL IV EMULSION 100 ML 29.01 MG IV CONT ×7 (00:39→22:43)
[2021-09-29 00:43] LABS: Glucose Point of Care 117 mg/dl (65-105)
[2021-09-29] MEDS: IPRATROPIUM BR 0.02% INH SOLN 0.5 MG/2.5 ML VIAL INHALATION ×4 (02:26→20:51)
[2021-09-29] MEDS: LEVALBUTEROL NEB 1.25 MG/3 ML 0.63 MG INHALATION ×4 (02:26→20:51)
[2021-09-29] MEDS: dexmedeTOMIDine 400 MCG/100 ML 400 MCG/100 ML BAG 16.99 MCG IV CONT ×2 (03:52→09:26)
[2021-09-29 05:01] LABS: Hematocrit 31.1 % (37.0-47.0); Hemoglobin 9.8 g/dL (12.0-15.0); Mean Corpuscular HGB Conc 31.5 g/dl (32-36); Mean Corpuscular Hemoglobin 29.5 pg (26-34); Mean Corpuscular Volume 93.7 fl (80-100); Mean Platelet Volume 11.6 fl (7.4-10.4); Platelet Count Result 469 k/mm3 (150-375); Red Blood Count 3.32 M/mm3 (4.2-5.4); Red Cell Distribution Width 18.1 % (11.5-14.5); White Blood Count 19.7 K/mm3 (4.5-10.0)
[2021-09-29 05:17] LABS: Alanine Aminotransferase 31 U/L (4-35); Albumin Level 3.5 g/dL (3.5-5.1); Alkaline Phosphatase 151 U/L (38-126); Anion Gap 8 mmol/L (8-16); Aspartate Amino Transferase 48 U/L (14-36); Bilirubin,Total 0.8 mg/dL (0.2-1.3); Blood Urea Nitrogen 106 mg/dL (7-17); Calcium 10.3 mg/dL (8.4-10.2); Carbon Dioxide 23 mmol/L (22-30); Chloride 103 mmol/L (98-107); Estimated CRCL calculation 25 ml/min; Estimated Glomerular Filt Rate 18; Glucose 223 mg/dL (65-110); Magnesium 2.1 mg/dL (1.6-2.3); Phosphorus 4.9 mg/dL (2.5-4.5); Sodium 134 mmol/L (137-145)
[2021-09-29 05:35] LABS: Alveolar/Arterial O2 Gradient 55.4 mmHg; Base Excess ABG -2.2 mEq/l (+/-2.0); Carboxyhemoglobin 0.3 % THb (0-2.0); Fractional Inspired Oxygen 25 %; Methemoglobin ABG 0.2 %THb (0-1.5); Oxygen Content ABG 13.9 %vol (16.0-22.0); Oxygen Saturation ABG 97.1 % (95.0-100.0); PCO2 ABG 30.6 mmHg (35.0-45.0); PO2 ABG 86.5 mmHg (80.0-100.0); PO2 FiO2 Ratio Arterial Blood 3.46 %; Reduced Hemoglobin 3.5 %THb (0-5.0); Total Hemoglobin 10.2 g/dL (12.0-18.0); pH ABG 7.455 (7.350-7.450)
[2021-09-29 05:36] LABS: Device VENTILATOR; Modified Allen's Test Unable to perform; Site Drawn RIGHT RADIAL
[2021-09-29 05:37] LABS: Arterial Blood Gas PEEP 5 cmH2O; Arterial Blood Gas Tidal Volume 400 ml; Arterial Blood Gas Vent Mode CMV; Arterial Blood Gas Ventilator rate 16 /MIN
[2021-09-29] MEDS: metroNIDAZOLE 250 MG TABLET 500 MG FEED TUBE ×3 (06:55→22:45)
[2021-09-29 06:57] LABS: Glucose Point of Care 163 mg/dl (65-105)
[2021-09-29] MEDS: NOREPINEPHRINE 8 MG/D5W 250 ML 8 MG/250 ML BAG 9.38 MG IV CONT (07:05)
--- NOTE | 2021-09-29 07:11 | PM.PNCARD ---
Progress Note: A&P Additional Plan 55-year-old woman presenting initially with COVID pneumonia now with ongoing respiratory insufficiency and ventilator dependency with residual COVID and significant pulmonary embolism with large clot burden. Patient was not able to be transferred to a higher level of care to consider suction thrombectomy. She is once again anticoagulated. Patient's atrial fibrillation has been quiescent with a this modest dose of metoprolol and this will be continued. No additional cardiac recommendations at this time Delano Spence MD [facility] Subjective Date/time seen: Date of service: 09/29/21 07:11 Interval history: Follow-up visit in this 55-year-old woman with: Very complex and unfortunate hospital course stemming from initial COVID pneumonia subsequently with DVT/PE and large pelvic and abdominal hematoma resulting in hemorrhagic shock. Consulted to see her last week because of paroxysmal AFib with RVR. There has been no more of this since beta-sathish was initiated. Patient is currently intubated sedated in the ICU on ventilator support. Exam Const: Other: Obese white female on the ventilator and sedated HENMT: Mouth: Yes moist mucous membranes Eyes: Sclera: sclerae normal Neck: Neck: supple Other: Difficult to assess venous distention given her body habitus Resp: Effort & Inspection: normal respiratory effort Auscultation: clear to auscultation bilaterally Other: Relatively clear breath sounds bilaterally Cardio: Rate: tachycardic Rhythm: regular rhythm GI: GI Palp: Yes Soft to palpation Auscultation: normal bowel sounds Neuro: Other: Sedated Extrem: Other: Adequate distal perfusion Objective Data Vital Signs Vital Signs: Vital Signs - 24 hr 09/28/21 07:41 09/28/21 08:00 09/28/21 08:11 Temperature 36.7 C Pulse Rate 95 97 94 Respiratory Rate 20 Blood Pressure 107/71 94/56 L Pulse Oximetry 100 09/28/21 08:16 09/28/21 08:25 09/28/21 10:00 Temperature Pulse Rate 104 H 101 H 85 Respiratory Rate 24 H 22 H 18 Blood Pressure 101/66 Pulse Oximetry 100 100 09/28/21 11:15 09/28/21 12:00 09/28/21 13:25 Temperature 36.3 C L Pulse Rate 84 83 82 Respiratory Rate 19 17 Blood Pressure 101/67 Pulse Oximetry 100 100 100 09/28/21 13:49 09/28/21 14:00 09/28/21 15:25 Temperature Pulse Rate 90 89 87 Respiratory Rate 18 21 H Blood Pressure 102/74 124/79 Pulse Oximetry 100 09/28/21 16:00 09/28/21 16:56 09/28/21 17:05 Temperature 36.7 C Pulse Rate 94 97 97 Respiratory Rate 21 H Blood Pressure 105/78 102/67 Pulse Oximetry 100 100 09/28/21 17:40 09/28/21 17:41 09/28/21 17:55 Temperature Pulse Rate 104 H 104 H 101 H Respiratory Rate 30 H 28 H Blood Pressure 119/81 Pulse Oximetry 09/28/21 18:00 09/28/21 19:00 09/28/21 19:30 Temperature Pulse Rate 110 H 108 H 110 H Respiratory Rate 28 H 24 H 25 H Blood Pressure 102/71 105/77 92/60 L Pulse Oximetry 100 100 100 09/28/21 20:00 09/28/21 20:01 09/28/21 20:02 Temperature 36.6 C Pulse Rate 97 98 98 Respiratory Rate 25 H 25 H Blood Pressure 74/60 L Pulse Oximetry 96 100 09/28/21 20:12 09/28/21 20:30 09/28/21 20:40 Temperature Pulse Rate 100 108 H 111 H Respiratory Rate 25 H 22 H 18 Blood Pressure 90/65 L Pulse Oximetry 100 09/28/21 20:45 09/28/21 20:50 09/28/21 21:00 Temperature Pulse Rate 108 H 106 H 107 H Respiratory Rate 21 H 25 H Blood Pressure 87/59 L Pulse Oximetry 100 09/28/21 21:30 09/28/21 22:00 09/28/21 22:14 Temperature Pulse Rate 101 H 94 103 H Respiratory Rate 21 H 21 H Blood Pressure 92/48 L 90/53 L Pulse Oximetry 100 100 09/28/21 22:18 09/28/21 22:37 09/28/21 22:43 Temperature Pulse Rate 91 94 93 Respiratory Rate 19 20 Blood Pressure 65/48 L 78/46 L Pulse Oximetry 100 09/28/21 22:56 09/28/21 23:00 09/28/21 23:10 Temperature Pulse Rate 93 93 95 Respiratory Rate 24 H Bl
[2021-09-29] MEDS: FAMOTIDINE 20 MG/2 ML VIAL IV PUSH (09:29)
[2021-09-29] MEDS: METOPROLOL TARTRATE 50 MG TAB PO (09:29)
[2021-09-29] MEDS: MINERAL OIL/WHITE PETROLATUM OINTMENT 1 APPLIC EACH EYE ×2 (09:30→21:26)
[2021-09-29] MEDS: INSULIN GLARGINE (*BKC) 100 UNITS/ML 10 UNITS SUB-Q (09:30)
[2021-09-29] MEDS: MIDAZOLAM HCL (*CRX) 2 MG/2 ML VIAL 4 MG IV PUSH (09:57)
--- NOTE | 2021-09-29 10:26 | P.PNNP_ITS ---
Progress Note: A&P Assessment and Plan (1) JERRY (acute kidney injury): Code(s): N17.9 - Acute kidney failure, unspecified Status: Acute Assessment and Plan: * due to ATN from: * hemorrhagic shock * contrast exposure * obstruction * evaluation to date: * renal ultrasound with evidence of obstruction - s/p nephrostomy tube placement * CPK mildly elevated (but not enough to affect kidney function) * urine electrolytes non-prerenal * Her BUN and creatinine are rising. Scheduled for a new catheter. They tried yesterday and the catheter did not work so it was removed. * Still making urine. She made 1100cc yesterday. This waxes and wanes. * She has diarrhea as well. * Chest x-ray basically stable. * The patient will be getting a non tunneled Russell catheter today. Discussed with Dr. Mclaughlin (2) Bilateral hydronephrosis: Code(s): N13.30 - Unspecified hydronephrosis Status: Acute Assessment and Plan: * as noted by renal ultrasound * CT scan (09/02/20) with moderate bilateral hydronephrosis and hydroureter secondary to mass effect from the pelvic hematoma, worsened from 08/30/21 * s/p bilateral CT-guided nephrostomy tube placement on 09/02/20 * Urine is yellow and clear in both bags. * management per Urology (3) Anemia associated with acute blood loss: Code(s): D62 - Acute posthemorrhagic anemia Status: Deleted Assessment and Plan: * follow H&H. * Back on anticoagulants. * Hemoglobin is stable. * On Epogen (4) Hemorrhagic shock: Code(s): R57.8 - Other shock Status: Deleted Assessment and Plan: * resolved (5) Acute respiratory failure with hypoxia: Code(s): J96.01 - Acute respiratory failure with hypoxia Status: Acute Assessment and Plan: * Reintubated (6) Pneumonia due to COVID-19 virus: Code(s): U07.1 - COVID-19; J12.82 - Pneumonia due to coronavirus disease 2019 Status: Acute Assessment and Plan: * Isolation has ?timed out ?. (7) Pulmonary embolism: Qualifiers: Pulmonary embolism type: unspecified Chronicity: acute Acute cor pulmonale presence: without acute cor pulmonale Qualified Code(s): I26.99 - Other pulmonary embolism without acute cor pulmonale Code(s): I26.99 - Other pulmonary embolism without acute cor pulmonale Status: Acute Assessment and Plan: * back on anticoagulants at a low dose Subjective Date/time seen: 09/29/21 10:26 Interval history: Patient is on Precedex Back on norepinephrine. Blood pressure has been soft. Patient is unable to give a history or review of system Exam Narrative: General: WD/WN female in NAD Heart: normal S1 and S2; no rub or gallop Lungs: symmetric and coarse breath sounds Abdomen: soft, nontender, nondistended; RLQ bruising noted Extremities: minimal edemasis Skin: no rash or subQ nodules Objective Data Vital Signs Vital Signs: Vital Signs - 24 hr 09/28/21 11:15 09/28/21 12:00 09/28/21 13:25 Temperature 36.3 C L Pulse Rate 84 83 82 Respiratory Rate 19 17 Blood Pressure 101/67 Pulse Oximetry 100 100 100 09/28/21 13:49 09/28/21 14:00 09/28/21 15:25 Temperature Pulse Rate 90 89 87 Respiratory Rate 18 21 H Blood Pressure 102/74 124/79
--- NOTE | 2021-09-29 10:26 | PM.PNNEP ---
Progress Note: A&P Assessment and Plan (1) JERRY (acute kidney injury): Code(s): N17.9 - Acute kidney failure, unspecified Status: Acute Assessment and Plan: due to ATN from: hemorrhagic shock contrast exposure obstruction evaluation to date: renal ultrasound with evidence of obstruction - s/p nephrostomy tube placement CPK mildly elevated (but not enough to affect kidney function) urine electrolytes non-prerenal Her BUN and creatinine are rising. Scheduled for a new catheter. They tried yesterday and the catheter did not work so it was removed. Still making urine. She made 1100cc yesterday. This waxes and wanes. She has diarrhea as well. Chest x-ray basically stable. The patient will be getting a non tunneled Russell catheter today. Discussed with Dr. Mclaughlin (2) Bilateral hydronephrosis: Code(s): N13.30 - Unspecified hydronephrosis Status: Acute Assessment and Plan: as noted by renal ultrasound CT scan (09/02/20) with moderate bilateral hydronephrosis and hydroureter secondary to mass effect from the pelvic hematoma, worsened from 08/30/21 s/[address]-guided nephrostomy tube placement on 09/02/20 Urine is yellow and clear in both bags. management per Urology (3) Anemia associated with acute blood loss: Code(s): D62 - Acute posthemorrhagic anemia Status: Deleted Assessment and Plan: follow H&H. Back on anticoagulants. Hemoglobin is stable. On Epogen (4) Hemorrhagic shock: Code(s): R57.8 - Other shock Status: Deleted Assessment and Plan: resolved (5) Acute respiratory failure with hypoxia: Code(s): J96.01 - Acute respiratory failure with hypoxia Status: Acute Assessment and Plan: Reintubated (6) Pneumonia due to COVID-19 virus: Code(s): U07.1 - COVID-19; J12.82 - Pneumonia due to coronavirus disease 2019 Status: Acute Assessment and Plan: Isolation has ?timed out ?. (7) Pulmonary embolism: Qualifiers: Pulmonary embolism type: unspecified Chronicity: acute Acute cor pulmonale presence: without acute cor pulmonale Qualified Code(s): I26.99 - Other pulmonary embolism without acute cor pulmonale Code(s): I26.99 - Other pulmonary embolism without acute cor pulmonale Status: Acute Assessment and Plan: back on anticoagulants at a low dose Subjective Date/time seen: 09/29/21 10:26 Interval history: Patient is on Precedex Back on norepinephrine. Blood pressure has been soft. Patient is unable to give a history or review of system Exam Narrative: General: WD/WN female in NAD Heart: normal S1 and S2; no rub or gallop Lungs: symmetric and coarse breath sounds Abdomen: soft, nontender, nondistended; RLQ bruising noted Extremities: minimal edemasis Skin: no rash or subQ nodules Objective Data Vital Signs Vital Signs: Vital Signs - 24 hr 09/28/21 11:15 09/28/21 12:00 09/28/21 13:25 Temperature 36.3 C L Pulse Rate 84 83 82 Respiratory Rate 19 17 Blood Pressure 101/67 Pulse Oximetry 100 100 100 09/28/21 13:49 09/28/21 14:00 09/28/21 15:25 Temperature Pulse Rate 90 89 87 Respiratory Rate 18 21 H Blood Pressure 102/74 124/79 Pulse Oximetry 100 09/28/21 16:00 09/28/21 16:56 09/28/21 17:05 Temperature 36.7 C Pulse Rate 94 97 97 Respiratory Rate 21 H Blood Pressure 105/78 102/67 Pulse Oximetry 100 100 09/28/21 17:40 09/28/21 17:41 09/28/21 17:55 Temperature Pulse Rate 104 H 104 H 101 H Respiratory Rate 30 H 28 H Blood Pressure 119/81 Pulse Oximetry 09/28/21 18:00 09/28/21 19:00 09/28/21 19:30 Temperature Pulse Rate 110 H 108 H 110 H Respiratory Rate 28 H 24 H 25 H Blood Pressure 102/71 105/77 92/60 L Pulse Oximetry 100 100 100 09/28/21 20:00 09/28/21 20:01 09/28/21 20:02 Temperature 36.6 C Pulse Rate 97 98 98 Re
--- NOTE | 2021-09-29 11:38 | P.OP_ITS ---
Procedure Note - Detailed Date of Procedure 09/29/21 Pre-op Diagnosis Acute renal failure Post-op Diagnosis same Procedure Performed Left internal jugular Russell dialysis catheter placement Surgeon Renaldo Cee, DO Anesthesia none Indications This is a 55-year-old with acute renal failure multiple other medical problems. She is in the intensive care unit and intubated and sedated. She had pulmonary embolus, COVID-19 pneumonia, rectus sheath hematoma, and other ongoing medical issues. She had a right internal jugular temporary dialysis catheter that was placed on 09/05/2021. The catheter stopped working yesterday and they were unable to get adequate flow even with using Alteplase. The right internal jugular dialysis catheter was removed yesterday. Decision was made to proceed with temporary dialysis catheter placement again today. Findings Left internal jugular catheter placement was performed under ultrasound guidance. The SonoSite ultrasound was used to identify the left internal jugular vein as a compressible vessel just lateral to the carotid artery. The 18 gauge introducer needle was advanced under ultrasound guidance. Dark nonpulsatile blood was aspirated and the guidewire advanced with ease. When I was advancing the 20 cm dialysis catheter, I was initially able to advance it all the way to 20 cm but when I aspirated each lumen, the brown woman was not aspirating. It was still flushing with ease. I then withdrew the catheter about 5 cm and then both lumens did function with ease. I then tried to readvance the guidewire through the blue lumen and then advance the catheter again to 20 cm, but it was meeting resistance and the brown lumen again was not aspirating. I then chose to leave this in place at 15 cm. Chest x-ray was then ordered to confirm placement. Description of Procedure Patient was placed supine an ICU bed and then was placed in Trendelenburg position. Her right neck and chest area was prepped and draped in sterile fashion using chlorhexidine prep. SonoSite ultrasound was used to identify the left internal jugular vein. An 18 gauge introducer needle was then advanced under ultrasound guidance directly into the lumen of the left internal jugular vein. Dark nonpulsatile blood was aspirated. The guidewire was then advanced through the needle. The guidewire advanced easily. The needle was then withdrawn leaving the guidewire in place. A small rhett incision was made at the skin using an 11 blade scalpel. The blue dilators were then advanced over the guidewire to dilate the vessel. The 20 cm is 11 [place] triple-lumen dialysis catheter was advanced over the guidewire into was placed at 20 cm. All 3 lumens were aspirated and then flushed with sterile saline. I did have to withdraw the catheter about 5 cm to ensure that all 3 lumens function with these. All 3 lumens were then capped. Glue was then applied over the insertion site at the neck. The catheter was then secured to the skin using 3-0 nylon simple interrupted sutures. 4 x 4 gauze and Tegaderm dressing were then applied. The patient was then sat up in bed and chest x-ray was ordered to confirm placement. Implants 20 cm triple-lumen 11 [place] dialysis catheter Estimated Blood Loss 5 Urine Output 300 Complications No immediate complications Condition critical Disposition ICU
--- NOTE | 2021-09-29 12:03 | WPDINTPN ---
Progress Note: A&P Assessment and Plan (1) Acute DVT (deep venous thrombosis): Qualifiers: DVT location: lower extremity Affected thrombotic vein of extremity: femoral Laterality: left Qualified Code(s): I82.412 - Acute embolism and thrombosis of left femoral vein Code(s): I82.409 - Acute embolism and thrombosis of unspecified deep veins of unspecified lower extremity Status: Acute Assessment and Plan: 09/22/2021 venous Dopplers: Acute deep vein thrombosis involving left common femoral vein. Some veins were not well evaluated due to patient motion. -08/25 - earlier this admission patient had PE and was started on anticoagulation and developed a large abdominal hematoma with hemorrhagic shock requiring multiple units of blood products, DDAVP and tranexamic acid - Anticoagulation was stopped at that time. Lower Extremity Dopplers were negative for DVT at that time -surgery consulted for IVC filter and they recommended trial of anticoagulation. Patient was started on Lovenox. -I will continue to monitor hemoglobin closely which has been stable for now (2) Acute respiratory failure with hypoxia: Code(s): J96.01 - Acute respiratory failure with hypoxia Status: Acute Assessment and Plan: Initial Intubation 08/30 Extubated 09/14 Reintubated 09/22 Acute respiratory failure likely related to pneumonia, edema, possible PE as patient had atrial fibrillation RVR and has a history of PE recently Chest x-ray showed bilateral airspace disease which may represent pneumonia or edema -continue CMV mode of ventilation, 25% FiO2 and peep of 5. -continue bronchodilators -continue low tidal volume strategy to prevent volume trauma -sedated with propofol and Precedex despite that patient gets tachycardic and tachypneic and a synchronous with the ventilator - I to give a dose of neuromuscular sathish. I will switch her back to fentanyl instead of Precedex -unfortunately not a candidate for weaning at this time (3) Sepsis: Code(s): A41.9 - Sepsis, unspecified organism Status: Deleted Assessment and Plan: Tachycardia, pneumonia, acute respiratory failure -09/23/2021: Sputum cultures Pseudomonas - sensitive to cefepime -09/23/2021 urine cultures growing Klebsiella oxytoca - sensitive to cefepime -09/23/2021 blood cultures negative x2 -CT 09/25 reviewed and there is small focus of air in the hematoma which could be a potential infection -started on cefepime and vancomycin (09/22/2021), Flagyl added 09/24 for anaerobic coverage -continue current antibiotics at this time -she is afebrile but her WBC count has increased - 2/3 temporary hemodialysis catheter was removed - if she spikes fevers again I will send her back for repeat CT scan to evaluate the hematoma (4) JERRY (acute kidney injury): Code(s): N17.9 - Acute kidney failure, unspecified Status: Acute Assessment and Plan: Patient with acute kidney injury after abdominal hematoma compressing on ureters bilaterally. Patient required dialysis catheter placement and started on dialysis. -BUN creatinine still remain elevated patient is making urine -continue to monitor urine output, renal function electrolytes -nephrology following -last dialysis was 09/23/2021 - 09/28 right IJ temporary hemodialysis catheter was removed - 09/29 A new left IJ temporary dialysis catheter was placed by general surgery. plan for tunneled dialysis catheter placement next week - plan for hemodialysis today - case discussed with Dr. Patel -urology is following and at this time there is no plan to place ureteral stents. Patient has bilateral nephrostomy tubes which are draining (5) Anemia associated with acute blood loss: Code(s): D62 - Acute posthemorrhagic anemia Status: Deleted Assessment and Plan: Bleeding appears to have stopped and hemoglobin has been stable Repeat CT shows persistent large right pelvic hematoma and p
[2021-09-29] MEDS: ROCURONIUM BROMIDE 50 MG/5 ML VIAL IV PUSH (12:05)
[2021-09-29] MEDS: FENTANYL 2,500MCG/NS250ML(*CRX 2,500 MCG/250 ML BAG 10 MCG IV CONT (12:34)
--- NOTE | 2021-09-29 12:58 | PCNFU ---
Nutrition Follow-Up Complete: Inadequate Oral Intake as related to mechanical vent as evidenced by NPO. Goal: Meet estimated nutritional needs Patient is progressing towards goal. We will continue current goal. Pt current nutrition is Nepro at 45 ml/hr over 22 hours. Last recorded weight is 98.3 kg-stable Bowel Motility:+BM reported 2/4 Labs Reviewed:Ca 10.3,PO4 4.9,BUN 106, Cr 2.8,GFR 18, Na 134 Meds Noted:Propofol 50 lvre=438 kcals, Flagyl, Fentanyl, Lopressor, Lantus, Pepcid, Levophed. Skin: Deep Tissue-coccyx. Additional Notes: Patient remains on mechanical vent. Tube feedings are currently on hold for Russell catheter today. Recommend decreasing tube feeding rate to 35 ml/hr over 22 hours, providing 1386 kcals/62 gm protein/660 ml water. Protein Modular of Eloy BID for wound healing, providing an additional 90 kcals and 2.5 gms each with additional propofol providing 766 kcals. 30 ml Free water flush q 4 hours. Agree with diet orders. Will monitor in ICU rounds and reassessing every Saturday and Saturday.
[2021-09-29] MEDS: ACETAMINOPHEN ELIXIR 325 MG/10.15 ML UDC 650 MG FEED TUBE (15:24)
[2021-09-29] MEDS: ENOXAPARIN 100 MG/ML SYRINGE SUB-Q (15:25)
[2021-09-29] MEDS: EPOETIN ALFA-EPBX 10,000 UNITS/ML VIAL 10000 UNITS SUB-Q (16:07)
[2021-09-29] MEDS: CENTRAL LINE FLUSH 10 ML IV PUSH (16:52)
[2021-09-29 17:07] LABS: Glucose Point of Care 119 mg/dl (65-105)
[2021-09-29 21:30] LABS: Vancomycin Random 17.5 ug/mL (10-20)
[2021-09-30] VITALS (65 sets, daily range): BP systolic 81–137; BP diastolic 53–116; PULSE 102–135; RESP 16–37; TEMP 36.2–37.5; O2SAT 95–100
[2021-09-30 01:55] LABS: Glucose Point of Care 120 mg/dl (65-105)
[2021-09-30] MEDS: PROPOFOL IV EMULSION 100 ML 29.01 MG IV CONT ×6 (02:11→20:43)
[2021-09-30] MEDS: IPRATROPIUM BR 0.02% INH SOLN 0.5 MG/2.5 ML VIAL INHALATION ×4 (03:06→20:00)
[2021-09-30] MEDS: LEVALBUTEROL NEB 1.25 MG/3 ML 0.63 MG INHALATION ×4 (03:06→20:00)
[2021-09-30] MEDS: metroNIDAZOLE 250 MG TABLET 500 MG FEED TUBE ×3 (05:43→22:11)
[2021-09-30 05:46] LABS: Glucose Point of Care 141 mg/dl (65-105)
[2021-09-30 05:51] LABS: Hematocrit 29.8 % (37.0-47.0); Hemoglobin 9.1 g/dL (12.0-15.0); Mean Corpuscular HGB Conc 30.5 g/dl (32-36); Mean Corpuscular Hemoglobin 30.2 pg (26-34); Mean Platelet Volume 11.1 fl (7.4-10.4); Platelet Count Result 484 k/mm3 (150-375); Red Blood Count 3.01 M/mm3 (4.2-5.4); Red Cell Distribution Width 18.7 % (11.5-14.5); White Blood Count 24.5 K/mm3 (4.5-10.0)
[2021-09-30 05:59] LABS: Alanine Aminotransferase 31 U/L (4-35); Albumin Level 3.4 g/dL (3.5-5.1); Alkaline Phosphatase 147 U/L (38-126); Anion Gap 8 mmol/L (8-16); Aspartate Amino Transferase 49 U/L (14-36); Bilirubin,Total 0.9 mg/dL (0.2-1.3); Blood Urea Nitrogen 108 mg/dL (7-17); Calcium 10.2 mg/dL (8.4-10.2); Carbon Dioxide 22 mmol/L (22-30); Chloride 105 mmol/L (98-107); Estimated CRCL calculation 22 ml/min; Estimated Glomerular Filt Rate 16; Glucose 158 mg/dL (65-110); Magnesium 2.2 mg/dL (1.6-2.3); Phosphorus 5.8 mg/dL (2.5-4.5); Potassium 3.9 mmol/L (3.4-5.0); Sodium 135 mmol/L (137-145)
[2021-09-30 06:27] LABS: Alveolar/Arterial O2 Gradient 56.3 mmHg; Base Excess ABG -4.3 mEq/l (+/-2.0); Carboxyhemoglobin 0.3 % THb (0-2.0); Fractional Inspired Oxygen 25 %; HCO3 ABG 20.1 mEq/l (22.0-26.0); Methemoglobin ABG 0.4 %THb (0-1.5); Oxygen Content ABG 13.7 %vol (16.0-22.0); PCO2 ABG 34.2 mmHg (35.0-45.0); PO2 ABG 81.3 mmHg (80.0-100.0); PO2 FiO2 Ratio Arterial Blood 3.25 %; Reduced Hemoglobin 5.3 %THb (0-5.0); Total Hemoglobin 10.3 g/dL (12.0-18.0); pH ABG 7.387 (7.350-7.450)
[2021-09-30 06:29] LABS: Arterial Blood Gas PEEP 5 cmH2O; Arterial Blood Gas Tidal Volume 400 ml; Arterial Blood Gas Vent Mode CMV; Arterial Blood Gas Ventilator rate 16 /MIN; Device VENTILATOR; Modified Allen's Test Pass; Site Drawn RIGHT RADIAL
[2021-09-30] MEDS: FENTANYL 2,500MCG/NS250ML(*CRX 2,500 MCG/250 ML BAG 12.5 MCG IV CONT (07:52)
[2021-09-30] MEDS: INSULIN GLARGINE (*BKC) 100 UNITS/ML 10 UNITS SUB-Q (08:18)
[2021-09-30] MEDS: FAMOTIDINE 20 MG/2 ML VIAL IV PUSH (08:20)
[2021-09-30] MEDS: METOPROLOL TARTRATE 50 MG TAB PO ×2 (08:21→21:30)
[2021-09-30] MEDS: MINERAL OIL/WHITE PETROLATUM OINTMENT 1 APPLIC EACH EYE ×2 (08:21→22:11)
[2021-09-30] MEDS: NOREPINEPHRINE 8 MG/D5W 250 ML 8 MG/250 ML BAG 9.38 MG IV CONT (08:54)
--- NOTE | 2021-09-30 12:02 | WPDINTPN ---
Progress Note: A&P Assessment and Plan (1) Acute DVT (deep venous thrombosis): Qualifiers: DVT location: lower extremity Affected thrombotic vein of extremity: femoral Laterality: left Qualified Code(s): I82.412 - Acute embolism and thrombosis of left femoral vein Code(s): I82.409 - Acute embolism and thrombosis of unspecified deep veins of unspecified lower extremity Status: Acute Assessment and Plan: 09/22/2021 venous Dopplers: Acute deep vein thrombosis involving left common femoral vein. Some veins were not well evaluated due to patient motion. -08/25 - earlier this admission patient had PE and was started on anticoagulation and developed a large abdominal hematoma with hemorrhagic shock requiring multiple units of blood products, DDAVP and tranexamic acid - Anticoagulation was stopped at that time. Lower Extremity Dopplers were negative for DVT at that time -surgery consulted for IVC filter and they recommended trial of anticoagulation. Patient was started on Lovenox. -I will continue to monitor hemoglobin closely which has been stable for now (2) Acute respiratory failure with hypoxia: Code(s): J96.01 - Acute respiratory failure with hypoxia Status: Acute Assessment and Plan: Initial Intubation 08/30 Extubated 09/14 Reintubated 09/22 Acute respiratory failure likely related to pneumonia, edema, possible PE as patient had atrial fibrillation RVR and has a history of PE recently Chest x-ray showed bilateral airspace disease which may represent pneumonia or edema -continue CMV mode of ventilation, 25% FiO2 and peep of 5. -continue bronchodilators -continue low tidal volume strategy to prevent volume trauma -sedated with propofol and fentanyl despite that patient gets tachycardic and tachypneic and asynchronous with the ventilator -unfortunately not a candidate for weaning at this time (3) Sepsis: Code(s): A41.9 - Sepsis, unspecified organism Status: Deleted Assessment and Plan: Tachycardia, pneumonia, acute respiratory failure -09/23/2021: Sputum cultures Pseudomonas - sensitive to cefepime -09/23/2021 urine cultures growing Klebsiella oxytoca - sensitive to cefepime -09/23/2021 blood cultures negative x2 -CT 09/25 reviewed and there is small focus of air in the hematoma which could be a potential infection -started on cefepime and vancomycin (09/22/2021), Flagyl added 09/24 for anaerobic coverage -continue current antibiotics at this time - 2/3 temporary hemodialysis catheter was removed - she is afebrile and WBC count continues to increase I will send her back for repeat CT scan to evaluate the hematoma (4) JERRY (acute kidney injury): Code(s): N17.9 - Acute kidney failure, unspecified Status: Acute Assessment and Plan: Patient with acute kidney injury after abdominal hematoma compressing on ureters bilaterally. Patient required dialysis catheter placement and started on dialysis. -BUN creatinine still remain elevated patient is making urine -continue to monitor urine output, renal function electrolytes -nephrology following -last dialysis was 09/23/2021 - 09/28 right IJ temporary hemodialysis catheter was removed - 09/29 A new left IJ temporary dialysis catheter was placed by general surgery. plan for tunneled dialysis catheter placement next week -hemodialysis was planned for yesterday but dialysis machine had to be moved for another patient emergency and due to lack of staffing patient was not dialyzed overnight. Patient is scheduled for dialysis today -urology is following and at this time there is no plan to place ureteral stents. Patient has bilateral nephrostomy tubes which are draining (5) Anemia associated with acute blood loss: Code(s): D62 - Acute posthemorrhagic anemia Status: Deleted Assessment and Plan: Bleeding appears to have stopped and hemoglobin has been stable Repeat CT shows persistent large righ
[2021-09-30 12:37] LABS: Glucose Point of Care 144 mg/dl (65-105)
--- NOTE | 2021-09-30 13:26 | PM.PNNEP ---
Progress Note: A&P Assessment and Plan (1) JERRY (acute kidney injury): Code(s): N17.9 - Acute kidney failure, unspecified Status: Acute Assessment and Plan: due to ATN from: hemorrhagic shock contrast exposure obstruction evaluation to date: renal ultrasound with evidence of obstruction - s/p nephrostomy tube placement CPK mildly elevated (but not enough to affect kidney function) urine electrolytes non-prerenal her BUN and creatinine continue to rise despite reasonably urine output -- HD today s/p placement of new temporary HD catheter Chest x-ray seems about the same (2) Bilateral hydronephrosis: Code(s): N13.30 - Unspecified hydronephrosis Status: Acute Assessment and Plan: as noted by renal ultrasound CT scan (09/02/20) with moderate bilateral hydronephrosis and hydroureter secondary to mass effect from the pelvic hematoma, worsened from 08/30/21 s/p bilateral CT-guided nephrostomy tube placement on 09/02/20 good urine output noted management per Urology (3) Acute respiratory failure with hypoxia: Code(s): J96.01 - Acute respiratory failure with hypoxia Status: Acute Assessment and Plan: back on mechanical ventilator support (reintubated on 09/22/21) related to pneumonia, edema, possible PE as patient had atrial fibrillation RVR and has a history of PE recently +/- COVID weaning when more stable (4) Pulmonary embolism: Qualifiers: Acute cor pulmonale presence: without acute cor pulmonale Chronicity: acute Pulmonary embolism type: unspecified Qualified Code(s): I26.99 - Other pulmonary embolism without acute cor pulmonale Code(s): I26.99 - Other pulmonary embolism without acute cor pulmonale Status: Acute Assessment and Plan: back on anticoagulants at a low dose Will continue to follow. Subjective Date/time seen: 09/30/21 13:26 Chart reviewed since last seen - assuming care from Dr. Patel; remains on ventilator support as well as vasopressors to maintain MAP; despite reasonable urine output, BUN and creatinine continue to climb; febrile in the last 24 hours; dialysis nurse hooking up patient to starte dialysis treatment at this time. Exam Narrative: General: WD/WN female intubated Heart: normal S1 and S2; no rub Lungs: symmetric and coarse breath sounds Abdomen: soft, nontender, nondistended; +BS Extremities: mild edema Skin: warm and dry Objective Data Vital Signs Vital Signs: Vital Signs Temp Pulse Resp BP Pulse Ox 09/30/21 13:11 114 H 96 09/30/21 10:24 113 H 28 H 09/30/21 10:00 112 H 28 H 91/71 L 98 09/30/21 09:46 113 H 28 H 09/30/21 08:54 124 H 105/59 L 09/30/21 08:34 124 H 96 09/30/21 08:30 125 H 19 09/30/21 08:21 126 H 09/30/21 08:00 36.9 C 125 H 16 105/59 L 98 09/30/21 07:54 122 H 108/92 H 09/30/21 07:53 122 H 22 H 09/30/21 07:52 122 H 22 H 09/30/21 06:19 128 H 22 H 09/30/21 06:00 129 H 24 H 111/67 99 09/30/21 05:58 135 H 98 09/30/21 05:38 124 H 22 H 09/30/21 05:00 37.1 C 124 H 22 H 111/69 100 09/30/21 04:00 124 H 21 H 121/73 98 09/30/21 03:11 124 H 27 H 09/30/21 03:10 124 H 100 09/30/21 03:06 128 H 29 H 09/30/21 03:00 128 H 30 H 127/72 100 09/30/21 02:11 128 H 25 H 09/30/21 02:10 128 H 27 H 09/30/21 02:00 124 H 29 H 123/80 99 09/30/21 01:30 36.8 C 09/30/21 01:00 126 H 29 H 134/83 100 09/30/21 00:00 124 H 21 H 109/71 98 09/29/21 23:25 125 H 98 09/29/21 23:00 125 H 35 H 111/76 98 09/29/21 22:43 124 H 33 H 09/29/21 22:00 123 H 34 H 100/66 98 09/29/21 21:06 122 H 27 H 09/29/21 21:00 125 H 29 H 91/55 L 97 09/29/21 20:50 126 H 26 H 97 09/29/21 20:07 125 H 34 H 09/29/21 20:00 37.3 C 126 H 36 H 115/61 97 09/29/21 19:07 128 H 34 H
--- NOTE | 2021-09-30 13:26 | P.PNNP_ITS ---
Progress Note: A&P Assessment and Plan (1) JERRY (acute kidney injury): Code(s): N17.9 - Acute kidney failure, unspecified Status: Acute Assessment and Plan: * due to ATN from: * hemorrhagic shock * contrast exposure * obstruction * evaluation to date: * renal ultrasound with evidence of obstruction - s/p nephrostomy tube placement * CPK mildly elevated (but not enough to affect kidney function) * urine electrolytes non-prerenal * her BUN and creatinine continue to rise despite reasonably urine output -- HD today * s/p placement of new temporary HD catheter * Chest x-ray seems about the same (2) Bilateral hydronephrosis: Code(s): N13.30 - Unspecified hydronephrosis Status: Acute Assessment and Plan: * as noted by renal ultrasound * CT scan (09/02/20) with moderate bilateral hydronephrosis and hydroureter secondary to mass effect from the pelvic hematoma, worsened from 08/30/21 * s/p bilateral CT-guided nephrostomy tube placement on 09/02/20 * good urine output noted * management per Urology (3) Acute respiratory failure with hypoxia: Code(s): J96.01 - Acute respiratory failure with hypoxia Status: Acute Assessment and Plan: * back on mechanical ventilator support (reintubated on 09/22/21) * related to pneumonia, edema, possible PE as patient had atrial fibrillation RVR and has a history of PE recently +/- COVID * weaning when more stable (4) Pulmonary embolism: Qualifiers: Acute cor pulmonale presence: without acute cor pulmonale Chronicity: acute Pulmonary embolism type: unspecified Qualified Code(s): I26.99 - Other pulmonary embolism without acute cor pulmonale Code(s): I26.99 - Other pulmonary embolism without acute cor pulmonale Status: Acute Assessment and Plan: * back on anticoagulants at a low dose Will continue to follow. Subjective Date/time seen: 09/30/21 13:26 Chart reviewed since last seen - assuming care from Dr. Patel; remains on ventilator support as well as vasopressors to maintain MAP; despite reasonable urine output, BUN and creatinine continue to climb; febrile in the last 24 hours; dialysis nurse hooking up patient to starte dialysis treatment at this time. Exam Narrative: General: WD/WN female intubated Heart: normal S1 and S2; no rub Lungs: symmetric and coarse breath sounds Abdomen: soft, nontender, nondistended; +BS Extremities: mild edema Skin: warm and dry Objective Data Vital Signs Vital Signs: Vital Signs Temp Pulse Resp BP Pulse Ox 09/30/21 13:11 114 H 96 09/30/21 10:24 113 H 28 H 09/30/21 10:00 112 H 28 H 91/71 L 98 09/30/21 09:46 113 H 28 H 09/30/21 08:54 124 H 105/59 L 09/30/21 08:34 124 H 96 09/30/21 08:30 125 H 19 09/30/21 08:21 126 H 09/30/21 08:00 36.9 C 125 H 16 105/59 L 98 09/30/21 07:54 122 H 108/92 H 09/30/21 07:53 122 H 22 H 09/30/21 07:52 122 H 22 H 09/30/21 06:19 128 H 22 H 09/30/21 06:00 129 H 24 H 111/67 99 09/30/21 05:58 135 H 98 09/30/21 05:38 124 H 22 H 09/30/21 05:00 37.1 C 124 H 22 H 111/69 100 09/30/21 04:00 124 H 21 H 121/73 98 09/30/21 03:11 124 H 27 H 09/30/21 03:10 124 H 100 02
--- NOTE | 2021-09-30 13:29 | PM.IMPN ---
Progress Note: A&P Assessment and Plan (1) Acute DVT (deep venous thrombosis): Qualifiers: Affected thrombotic vein of extremity: femoral DVT location: lower extremity Laterality: left Qualified Code(s): I82.412 - Acute embolism and thrombosis of left femoral vein Code(s): I82.409 - Acute embolism and thrombosis of unspecified deep veins of unspecified lower extremity Status: Acute Assessment and Plan: 09/22/2021 venous Dopplers: Acute deep vein thrombosis involving left common femoral vein. Some veins were not well evaluated due to patient motion. -08/25 - earlier this admission patient had PE and was started on anticoagulation and developed a large abdominal hematoma with hemorrhagic shock requiring multiple units of blood products, DDAVP and tranexamic acid - Anticoagulation was stopped at that time. Lower Extremity Dopplers were negative for DVT at that time -surgery consulted for IVC filter and they recommended trial of anticoagulation. Patient was started on Lovenox. -I will continue to monitor hemoglobin closely which has been stable for now 09/30/2021 Interval history: 55-year-old female diagnosed with COVID on 08/16/2021 received dexamethasone therapy as were remdesivir patient symptoms worsen and was intubated on 08/30/2021, extubated on 09/14/2021 and was reintubated on 09/22/2021 remains intubated, patient is also found to pneumonia and bilateral pulmonary emboli patient is being treated with cefepime, vancomycin and Flagyl, patient seen by senior caregiver patient also has worsening kidney function is seen fountain pen nibs inspector recommending temporary hemodialysis and patient at placement temporary tunneled catheter, will continue to monitor and further recommendation to follow. (2) Acute respiratory failure with hypoxia: Code(s): J96.01 - Acute respiratory failure with hypoxia Status: Acute Assessment and Plan: Initial Intubation 08/30 Extubated 09/14 Reintubated 09/22 Acute respiratory failure likely related to pneumonia, edema, possible PE as patient had atrial fibrillation RVR and has a history of PE recently Chest x-ray showed bilateral airspace disease which may represent pneumonia or edema -continue CMV mode of ventilation, 25% FiO2 and peep of 5. -continue bronchodilators -continue low tidal volume strategy to prevent volume trauma -sedated with propofol and fentanyl despite that patient gets tachycardic and tachypneic and asynchronous with the ventilator -unfortunately not a candidate for weaning at this time (3) Sepsis: Code(s): A41.9 - Sepsis, unspecified organism Status: Deleted Assessment and Plan: Tachycardia, pneumonia, acute respiratory failure -09/23/2021: Sputum cultures Pseudomonas - sensitive to cefepime -09/23/2021 urine cultures growing Klebsiella oxytoca - sensitive to cefepime -09/23/2021 blood cultures negative x2 -CT 09/25 reviewed and there is small focus of air in the hematoma which could be a potential infection -started on cefepime and vancomycin (09/22/2021), Flagyl added 09/24 for anaerobic coverage -continue current antibiotics at this time - 2/3 temporary hemodialysis catheter was removed - she is afebrile and WBC count continues to increase I will send her back for repeat CT scan to evaluate the hematoma (4) JERRY (acute kidney injury): Code(s): N17.9 - Acute kidney failure, unspecified Status: Acute Assessment and Plan: Patient with acute kidney injury after abdominal hematoma compressing on ureters bilaterally. Patient required dialysis catheter placement and started on dialysis. -BUN creatinine still remain elevated patient is making urine -continue to monitor urine output, renal function electrolytes -nephrology following -last dialysis was 09/23/2021 - 09/28 right IJ temporary hemodialysis catheter was removed - 09/29 A new left IJ temporary dialysis catheter was placed by general surgery. plan for tunneled di
[2021-09-30] MEDS: EPOETIN ALFA-EPBX 10,000 UNITS/ML VIAL 10000 UNITS IV PUSH (13:49)
[2021-09-30 14:32] LABS: Hepatitis B Surface Antigen Negative (Negative)
[2021-09-30 14:50] LABS: Hepatitis B Surface Anti Res Positive
[2021-09-30] MEDS: CENTRAL LINE FLUSH 10 ML IV PUSH (17:45)
[2021-09-30] MEDS: ENOXAPARIN 100 MG/ML SYRINGE SUB-Q (17:45)
[2021-09-30 18:23] LABS: Glucose Point of Care 162 mg/dl (65-105)
[2021-09-30] MEDS: MIDAZOLAM HCL (*CRX) 2 MG/2 ML VIAL 4 MG IV PUSH (22:12)
[2021-09-30 22:25] LABS: Vancomycin Random 12.3 ug/mL (10-20)
[2021-10-01] VITALS (40 sets, daily range): BP systolic 74–147; BP diastolic 45–82; PULSE 90–134; RESP 21–34; TEMP 36.9–37.9; O2SAT 90–100
[2021-10-01] MEDS: PROPOFOL IV EMULSION 100 ML 29.01 MG IV CONT ×3 (00:08→06:19)
[2021-10-01] MEDS: NOREPINEPHRINE 8 MG/D5W 250 ML 8 MG/250 ML BAG 18.75 MG IV CONT (00:15)
[2021-10-01 00:20] LABS: Glucose Point of Care 161 mg/dl (65-105)
[2021-10-01] MEDS: IPRATROPIUM BR 0.02% INH SOLN 0.5 MG/2.5 ML VIAL INHALATION ×2 (02:00→08:32)
[2021-10-01] MEDS: LEVALBUTEROL NEB 1.25 MG/3 ML 0.63 MG INHALATION ×2 (02:00→08:32)
[2021-10-01] MEDS: FENTANYL 2,500MCG/NS250ML(*CRX 2,500 MCG/250 ML BAG 20 MCG IV CONT ×2 (02:46→15:48)
[2021-10-01 04:53] LABS: Hematocrit 28.5 % (37.0-47.0); Hemoglobin 8.8 g/dL (12.0-15.0); Mean Corpuscular HGB Conc 30.9 g/dl (32-36); Mean Corpuscular Hemoglobin 29.5 pg (26-34); Mean Corpuscular Volume 95.6 fl (80-100); Mean Platelet Volume 10.8 fl (7.4-10.4); Platelet Count Result 446 k/mm3 (150-375); Red Blood Count 2.98 M/mm3 (4.2-5.4); Red Cell Distribution Width 19.4 % (11.5-14.5)
[2021-10-01 05:19] LABS: Albumin Level 3.3 g/dL (3.5-5.1)
[2021-10-01 05:20] LABS: Alanine Aminotransferase 28 U/L (4-35); Alkaline Phosphatase 145 U/L (38-126); Anion Gap 10 mmol/L (8-16); Aspartate Amino Transferase 44 U/L (14-36); Bilirubin,Total 0.7 mg/dL (0.2-1.3); Blood Urea Nitrogen 65 mg/dL (7-17); Calcium 9.6 mg/dL (8.4-10.2); Carbon Dioxide 24 mmol/L (22-30); Chloride 101 mmol/L (98-107); Estimated CRCL calculation 27 ml/min; Estimated Glomerular Filt Rate 20; Glucose 177 mg/dL (65-110); Potassium 3.6 mmol/L (3.4-5.0); Sodium 135 mmol/L (137-145)
[2021-10-01] MEDS: metroNIDAZOLE 250 MG TABLET 500 MG FEED TUBE (05:36)
[2021-10-01 05:54] LABS: Alveolar/Arterial O2 Gradient 76.3 mmHg; Base Excess ABG -2.1 mEq/l (+/-2.0); Carboxyhemoglobin 0.3 % THb (0-2.0); Fractional Inspired Oxygen 25 %; HCO3 ABG 22.3 mEq/l (22.0-26.0); Methemoglobin ABG 0.3 %THb (0-1.5); Oxygen Content ABG 12.4 %vol (16.0-22.0); Oxygen Saturation ABG 90.6 % (95.0-100.0); Oxyhemoglobin 89.4 % THb (90.0-100.0); PCO2 ABG 36.6 mmHg (35.0-45.0); PO2 ABG 58.5 mmHg (80.0-100.0); PO2 FiO2 Ratio Arterial Blood 2.34 %; Total Hemoglobin 9.8 g/dL (12.0-18.0); pH ABG 7.402 (7.350-7.450)
[2021-10-01 05:56] LABS: Arterial Blood Gas Vent Mode CMV; Arterial Blood Gas Ventilator rate 16 /MIN; Device VENTILATOR; Modified Allen's Test Pass; Site Drawn RIGHT RADIAL
[2021-10-01 05:57] LABS: Arterial Blood Gas PEEP 5 cmH2O; Arterial Blood Gas Tidal Volume 400 ml
[2021-10-01] MEDS: FAMOTIDINE 20 MG/2 ML VIAL IV PUSH (08:30)
[2021-10-01] MEDS: MINERAL OIL/WHITE PETROLATUM OINTMENT 1 APPLIC EACH EYE ×2 (08:35→21:15)
[2021-10-01] MEDS: INSULIN GLARGINE (*BKC) 100 UNITS/ML 10 UNITS SUB-Q (08:35)
[2021-10-01] MEDS: MIDAZOLAM 100MG/NS 100ML(*CRX) 100 MG/100 ML BAG IV CONT (08:35)
[2021-10-01] MEDS: MIDODRINE HCL 10 MG TABLET FEED TUBE (09:04)
[2021-10-01] MEDS: NOREPINEPHRINE 8 MG/D5W 250 ML 8 MG/250 ML BAG 35.63 MG IV CONT (10:37)
--- NOTE | 2021-10-01 10:51 | WPDINTPN ---
Progress Note: A&P Assessment and Plan (1) Acute DVT (deep venous thrombosis): Qualifiers: DVT location: lower extremity Affected thrombotic vein of extremity: femoral Laterality: left Qualified Code(s): I82.412 - Acute embolism and thrombosis of left femoral vein Code(s): I82.409 - Acute embolism and thrombosis of unspecified deep veins of unspecified lower extremity Status: Acute Assessment and Plan: 09/22/2021 venous Dopplers: Acute deep vein thrombosis involving left common femoral vein. Some veins were not well evaluated due to patient motion. -08/25 - earlier this admission patient had PE and was started on anticoagulation and developed a large abdominal hematoma with hemorrhagic shock requiring multiple units of blood products, DDAVP and tranexamic acid - Anticoagulation was stopped at that time. Lower Extremity Dopplers were negative for DVT at that time -surgery consulted for IVC filter and they recommended trial of anticoagulation. Patient was started on Lovenox. -I will continue to monitor hemoglobin closely which has been stable for now (2) Acute respiratory failure with hypoxia: Code(s): J96.01 - Acute respiratory failure with hypoxia Status: Acute Assessment and Plan: Initial Intubation 08/30 Extubated 09/14 Reintubated 09/22 Acute respiratory failure likely related to pneumonia, edema, possible PE as patient had atrial fibrillation RVR and has a history of PE recently Chest x-ray showed bilateral airspace disease which may represent pneumonia or edema -continue CMV mode of ventilation, 25% FiO2 and peep of 5. -continue bronchodilators -continue low tidal volume strategy to prevent volume trauma -sedated with propofol and fentanyl despite that patient gets tachycardic and tachypneic and asynchronous with the ventilator -unfortunately not a candidate for weaning at this time (3) Sepsis: Code(s): A41.9 - Sepsis, unspecified organism Status: Deleted Assessment and Plan: Tachycardia, pneumonia, acute respiratory failure -09/23/2021: Sputum cultures Pseudomonas - sensitive to cefepime -09/23/2021 urine cultures growing Klebsiella oxytoca - sensitive to cefepime -09/23/2021 blood cultures negative x2 -CT 09/25 reviewed and there is small focus of air in the hematoma which could be a potential infection -started on cefepime and vancomycin (09/22/2021), Flagyl added 09/24 for anaerobic coverage -continue current antibiotics at this time - 2/3 temporary hemodialysis catheter was removed - she is afebrile but WBC count continues to increase - 09/30 CT chest abdomen pelvis was done 1. Large pelvic hematoma and small right rectus abdominalis hematoma unchanged in size. 2. Mild improvement in bilateral pneumonia and atelectasis. 3. Cardiomegaly. 4. Tubes in position. I will continue vancomycin but change cefepime to imipenem (4) JERRY (acute kidney injury): Code(s): N17.9 - Acute kidney failure, unspecified Status: Acute Assessment and Plan: Patient with acute kidney injury after abdominal hematoma compressing on ureters bilaterally. Patient required dialysis catheter placement and started on dialysis. -BUN creatinine still remain elevated patient is making urine -continue to monitor urine output, renal function electrolytes -nephrology following -last dialysis was 09/23/2021 - 09/28 right IJ temporary hemodialysis catheter was removed - 09/29 A new left IJ temporary dialysis catheter was placed by general surgery. plan for tunneled dialysis catheter placement next week - 09/30 hemodialysis was planned for 09/29 but dialysis machine had to be moved for another patient emergency and due to lack of staffing patient was not dialyzed overnight. patient was dialyzed on 09/30 -urology is following and at this time there is no plan to place ureteral stents. Patient has bilateral nephrostomy tubes which are draining (5) Anemia associated with ac
[2021-10-01] MEDS: MIDAZOLAM HCL (*CRX) 2 MG/2 ML VIAL 4 MG IV PUSH (11:31)
[2021-10-01 11:59] LABS: Glucose Point of Care 172 mg/dl (65-105)
[2021-10-01] MEDS: VASOPRESSIN INJ 100 UNITS in DEXTROSE 5% 95 ML IV CONT (11:59)
--- NOTE | 2021-10-01 12:29 | PM.IMPN ---
Progress Note: A&P Assessment and Plan (1) Acute DVT (deep venous thrombosis): Qualifiers: DVT location: lower extremity Affected thrombotic vein of extremity: femoral Laterality: left Qualified Code(s): I82.412 - Acute embolism and thrombosis of left femoral vein Code(s): I82.409 - Acute embolism and thrombosis of unspecified deep veins of unspecified lower extremity Status: Acute Assessment and Plan: 09/22/2021 venous Dopplers: Acute deep vein thrombosis involving left common femoral vein. Some veins were not well evaluated due to patient motion. -08/25 - earlier this admission patient had PE and was started on anticoagulation and developed a large abdominal hematoma with hemorrhagic shock requiring multiple units of blood products, DDAVP and tranexamic acid - Anticoagulation was stopped at that time. Lower Extremity Dopplers were negative for DVT at that time -surgery consulted for IVC filter and they recommended trial of anticoagulation. Patient was started on Lovenox. -I will continue to monitor hemoglobin closely which has been stable for now 09/30/2021 Interval history: 55-year-old female diagnosed with COVID on 08/16/2021 received dexamethasone therapy as were remdesivir patient symptoms worsen and was intubated on 08/30/2021, extubated on 09/14/2021 and was reintubated on 09/22/2021 remains intubated, patient is also found to pneumonia and bilateral pulmonary emboli patient is being treated with cefepime, vancomycin and Flagyl, patient seen by sales hunter patient also has worsening kidney function is seen job training specialist recommending temporary hemodialysis and patient at placement temporary tunneled catheter, will continue to monitor and further recommendation to follow. 10/01/2021 Interval history: 55-year-old female diagnosed with COVID on 08/16/2021 received dexamethasone therapy as were remdesivir patient symptoms worsen and was intubated on 08/30/2021, extubated on 09/14/2021 and was reintubated on 09/22/2021 remains intubated, patient is also found to pneumonia and bilateral pulmonary emboli patient is being treated with cefepime, vancomycin and Flagyl, patient seen by sales hunter patient also has worsening kidney function is seen job training specialist recommending temporary hemodialysis and patient at placement temporary tunneled catheter, will continue to monitor and further recommendation to follow. patient had a CT scan of abdomen and pelvis hematoma has not changed, patient remains on vent and clinically stable, sales hunter has spoken to tertiary care for possible transfer to ICU pending bed availability, patient's and son will come to see the patient today and discussed with the sales hunter further recommendation to follow, appreciate sales hunter and job training specialist. (2) Acute respiratory failure with hypoxia: Code(s): J96.01 - Acute respiratory failure with hypoxia Status: Acute Assessment and Plan: Initial Intubation 08/30 Extubated 09/14 Reintubated 09/22 Acute respiratory failure likely related to pneumonia, edema, possible PE as patient had atrial fibrillation RVR and has a history of PE recently Chest x-ray showed bilateral airspace disease which may represent pneumonia or edema -continue CMV mode of ventilation, 25% FiO2 and peep of 5. -continue bronchodilators -continue low tidal volume strategy to prevent volume trauma -sedated with propofol and fentanyl despite that patient gets tachycardic and tachypneic and asynchronous with the ventilator -unfortunately not a candidate for weaning at this time (3) Sepsis: Code(s): A41.9 - Sepsis, unspecified organism Status: Deleted Assessment and Plan: Tachycardia, pneumonia, acute respiratory failure -09/23/2021: Sputum cultures Pseudomonas - sensitive to cefepime -09/23/2021 urine cultures growing Klebsiella oxytoca - sensitive to cefepime -09/23/2021 blood cultures negative x2 -CT 09/25 reviewed and there
--- NOTE | 2021-10-01 12:36 | PM.PNNEP ---
Progress Note: A&P Assessment and Plan (1) JERRY (acute kidney injury): Code(s): N17.9 - Acute kidney failure, unspecified Status: Acute Assessment and Plan: due to ATN from: hemorrhagic shock contrast exposure obstruction evaluation to date: renal ultrasound with evidence of obstruction - s/p nephrostomy tube placement CPK mildly elevated (but not enough to affect kidney function) urine electrolytes non-prerenal her BUN and creatinine continue to rise despite reasonably urine output -- HD yesterday s/p placement of new temporary HD catheter chest x-ray seems about the same (2) Bilateral hydronephrosis: Code(s): N13.30 - Unspecified hydronephrosis Status: Acute Assessment and Plan: as noted by renal ultrasound CT scan (09/02/20) with moderate bilateral hydronephrosis and hydroureter secondary to mass effect from the pelvic hematoma, worsened from 08/30/21 s/[address]-guided nephrostomy tube placement on 09/02/20 good urine output noted management per Urology (3) Acute respiratory failure with hypoxia: Code(s): J96.01 - Acute respiratory failure with hypoxia Status: Acute Assessment and Plan: back on mechanical ventilator support (reintubated on 09/22/21) related to pneumonia, edema, possible PE as patient had atrial fibrillation RVR and has a history of PE recently +/- COVID weaning when more stable (4) Pulmonary embolism: Qualifiers: Acute cor pulmonale presence: without acute cor pulmonale Chronicity: acute Pulmonary embolism type: unspecified Qualified Code(s): I26.99 - Other pulmonary embolism without acute cor pulmonale Code(s): I26.99 - Other pulmonary embolism without acute cor pulmonale Status: Acute Assessment and Plan: back on anticoagulants at a low dose Will continue to follow. Subjective Date/time seen: 10/01/21 12:36 Hemodialysis yesterday but did not tolerate it treatment very well as had issues with ongoing hypotension; not very responsive to IV albumin so pressor had to be increased to get her through the treatment; vasopressor requirements remains elevated even after dialysis was completed; still making some urine. Exam Narrative: General: WD/WN female intubated Heart: normal S1 and S2; no rub Lungs: symmetric and coarse breath sounds Abdomen: soft, nontender, nondistended; +BS Extremities: mild edema present Skin: warm and intact Objective Data Vital Signs Vital Signs: Vital Signs Temp Pulse Resp BP Pulse Ox 10/01/21 12:00 37.3 C 114 H 25 H 111/69 100 10/01/21 11:59 116 H 100/61 10/01/21 11:32 130 H 34 H 10/01/21 10:51 130 H 100 10/01/21 10:37 110 H 97/57 L 10/01/21 10:00 102 H 23 H 96/57 L 98 10/01/21 08:47 90 95 10/01/21 08:38 111 H 24 H 10/01/21 08:37 111 H 24 H 10/01/21 08:36 111 H 107/62 10/01/21 08:35 111 H 24 H 10/01/21 08:33 106 H 25 H 10/01/21 08:00 37.9 C H 101 H 24 H 107/62 98 10/01/21 06:40 105 H 24 H 90/63 L 98 10/01/21 06:25 103 H 91/51 L 10/01/21 06:19 107 H 24 H 10/01/21 06:15 104 H 87/51 L 10/01/21 06:10 106 H 81/45 L 10/01/21 06:05 105 H 81/45 L 10/01/21 06:00 107 H 26 H 74/48 L 98 10/01/21 04:29 118 H 83/55 L 10/01/21 04:00 37.3 C 113 H 21 H 83/56 L 97 10/01/21 02:49 123 H 22 H 10/01/21 02:46 123 H 22 H 10/01/21 02:15 118 H 23 H 10/01/21 02:02 122 H 24 H 97 10/01/21 02:01 123 H 138/72 10/01/21 02:00 123 H 21 H 138/72 97 10/01/21 01:35 120 H 147/77 H 10/01/21 00:15 112 H 91/60 L 10/01/21 00:08 112 H 22 H 10/01/21 00:00 36.9 C 113 H 23 H 101/69 98 09/30/21 23:36 110 H 81/53 L 02/05/22 23:24 111 H 84/56 L 09/30/21 23:23 111 H 23 H 84/56 L 98 09/30/21 23:12 125 H 97 09/30/21 22:35 117 H 82/61 L 09/30/21 22:00 1
--- NOTE | 2021-10-01 12:36 | P.PNNP_ITS ---
Progress Note: A&P Assessment and Plan (1) JERRY (acute kidney injury): Code(s): N17.9 - Acute kidney failure, unspecified Status: Acute Assessment and Plan: * due to ATN from: * hemorrhagic shock * contrast exposure * obstruction * evaluation to date: * renal ultrasound with evidence of obstruction - s/p nephrostomy tube placement * CPK mildly elevated (but not enough to affect kidney function) * urine electrolytes non-prerenal * her BUN and creatinine continue to rise despite reasonably urine output -- HD yesterday * s/p placement of new temporary HD catheter * chest x-ray seems about the same (2) Bilateral hydronephrosis: Code(s): N13.30 - Unspecified hydronephrosis Status: Acute Assessment and Plan: * as noted by renal ultrasound * CT scan (09/02/20) with moderate bilateral hydronephrosis and hydroureter secondary to mass effect from the pelvic hematoma, worsened from 08/30/21 * s/p bilateral CT-guided nephrostomy tube placement on 09/02/20 * good urine output noted * management per Urology (3) Acute respiratory failure with hypoxia: Code(s): J96.01 - Acute respiratory failure with hypoxia Status: Acute Assessment and Plan: * back on mechanical ventilator support (reintubated on 09/22/21) * related to pneumonia, edema, possible PE as patient had atrial fibrillation RVR and has a history of PE recently +/- COVID * weaning when more stable (4) Pulmonary embolism: Qualifiers: Acute cor pulmonale presence: without acute cor pulmonale Chronicity: acute Pulmonary embolism type: unspecified Qualified Code(s): I26.99 - Other pulmonary embolism without acute cor pulmonale Code(s): I26.99 - Other pulmonary embolism without acute cor pulmonale Status: Acute Assessment and Plan: * back on anticoagulants at a low dose Will continue to follow. Subjective Date/time seen: 10/01/21 12:36 Hemodialysis yesterday but did not tolerate it treatment very well as had issues with ongoing hypotension; not very responsive to IV albumin so pressor had to be increased to get her through the treatment; vasopressor requirements remains elevated even after dialysis was completed; still making some urine. Exam Narrative: General: WD/WN female intubated Heart: normal S1 and S2; no rub Lungs: symmetric and coarse breath sounds Abdomen: soft, nontender, nondistended; +BS Extremities: mild edema present Skin: warm and intact Objective Data Vital Signs Vital Signs: Vital Signs Temp Pulse Resp BP Pulse Ox 10/01/21 12:00 37.3 C 114 H 25 H 111/69 100 10/01/21 11:59 116 H 100/61 10/01/21 11:32 130 H 34 H 10/01/21 10:51 130 H 100 10/01/21 10:37 110 H 97/57 L 10/01/21 10:00 102 H 23 H 96/57 L 98 10/01/21 08:47 90 95 10/01/21 08:38 111 H 24 H 10/01/21 08:37 111 H 24 H 10/01/21 08:36 111 H 107/62 10/01/21 08:35 111 H 24 H 10/01/21 08:33 106 H 25 H 10/01/21 08:00 37.9 C H 101 H 24 H 107/62 98 10/01/21 06:40 105 H 24 H 90/63 L 98 10/01/21 06:25 103 H 91/51 L 10/01/21 06:19 107 H 24 H 10/01/21 06:15 104 H 87/51 L 10/01/21 06:10 106 H 81/45 L 10/01/21 06:05 105 H 81/45 L 10/01/21 06:00 107 H 26
--- NOTE | 2021-10-01 14:16 | PM.EVENT ---
Event Note Event Note Event Note: Family Meeting I met with patient's and 2 sons in presence of charge nurse Elisa in conference room and then later at bedside to discuss medical decisions and level of care regarding patient's condition. I have had several phone conversations with patient's throughout patient's hospital stay especially during the previous ICU stay. Patient was extubated and then transferred out of ICU. Few days later she was reintubated with worsening respiratory status. She was restarted on dialysis. I I again today discussed in detail patient's course in ICU since her 1st admission after a cardiac arrest, hemorrhage, respiratory failure, renal failure requiring dialysis then her extubation and transfer out of ICU which was followed by respiratory deterioration and re-intubation. I also summarized her stay in the ICU post intubation including resumption of diet, continued respiratory failure requiring mechanical ventilation, sepsis and shock requiring vasopressor. We also discussed options of trach and PEG which she may need in future if she is unable to be extubated. We also discussed code status options. we also discussed potential quality of life if she requires tracheostomy and PEG tube placement and also continue to need hemodialysis. I explained him the patient's prognosis remained guarded. After that they went into the room and visited patient and discussed among themselves. I went back to meet them at bedside and her told me that he does not recognize his and does not feel that she would want to continue living on a ventilator like this and would want to live a life which will require a prolonged ventilator support and hemodialysis. He and both children feel that we should discontinue all medical therapy and institute comfort measures only. he states that that would be compatible with patient's wishes and the life she has lived which was very energetic and enthusiastic. I have explained them the procedure of palliative extubation and comfort care. I have explained in detail that I will use opioids, anxiolytics and other agents on as needed basis to promote comfort and discontinue all medical therapy, lab testing and invasive monitoring. I have explained them that going this route that patient will eventually . They verbalized understanding and feel ready for it at this time. I have placed orders for comfort care and will proceed with palliative extubation. Total time spent in advance care planning 35 minutes.
[2021-10-01] MEDS: LORazepam INJ (*CRX) 2 MG/ML VIAL IV PUSH ×6 (14:34→20:14)
[2021-10-01] MEDS: MORPHINE SULFATE INJ (*CRX) 10 MG/ML AMP 5 MG IV PUSH (14:34)
[2021-10-01] MEDS: MORPHINE SULFATE (*CRX) 2 MG/ML INJ IV PUSH ×6 (15:36→20:14)
[2021-10-01] MEDS: MORPHINE SULFATE INJ (*CRX) 50 MG in SODIUM CHLORIDE 0.9% IV 95 ML 6 MG IV CONT (22:04)
[2021-10-02 02:00] VITALS: PULSE 120; RESP 31
[2021-10-02] MEDS: MIDAZOLAM 100MG/NS 100ML(*CRX) 100 MG/100 ML BAG 6 MG IV CONT (02:00)
[2021-10-02 02:12] VITALS: PULSE 120; RESP 33
[2021-10-02] MEDS: MORPHINE SULFATE INJ (*CRX) 50 MG in SODIUM CHLORIDE 0.9% IV 95 ML 18 MG IV CONT ×2 (04:39→10:00)
[2021-10-02 07:34] VITALS: PULSE 116; RESP 31
[2021-10-02] MEDS: LORazepam INJ (*CRX) 2 MG/ML VIAL IV PUSH ×5 (07:52→13:29)
[2021-10-02 07:53] VITALS: PULSE 116; RESP 35
[2021-10-02] MEDS: ATROPINE SULFATE 1% OPHTH SOLN 5 ML BOTTLE SUBLINGUAL (08:04)
[2021-10-02] MEDS: MORPHINE SULFATE (*CRX) 2 MG/ML INJ IV PUSH ×3 (09:28→13:29)
--- NOTE | 2021-10-02 10:32 | WPDINTPN ---
Progress Note: A&P Assessment and Plan (1) Acute DVT (deep venous thrombosis): Qualifiers: DVT location: lower extremity Affected thrombotic vein of extremity: femoral Laterality: left Qualified Code(s): I82.412 - Acute embolism and thrombosis of left femoral vein Code(s): I82.409 - Acute embolism and thrombosis of unspecified deep veins of unspecified lower extremity Status: Acute (2) Acute respiratory failure with hypoxia: Code(s): J96.01 - Acute respiratory failure with hypoxia Status: Acute (3) Sepsis: Code(s): A41.9 - Sepsis, unspecified organism Status: Deleted (4) JERRY (acute kidney injury): Code(s): N17.9 - Acute kidney failure, unspecified Status: Acute (5) Anemia associated with acute blood loss: Code(s): D62 - Acute posthemorrhagic anemia Status: Deleted (6) Pneumonia due to 2019-nCoV: Code(s): U07.1 - COVID-19; J12.82 - Pneumonia due to coronavirus disease 2019 Status: Deleted (7) Pulmonary embolism: Qualifiers: Pulmonary embolism type: unspecified Chronicity: acute Acute cor pulmonale presence: without acute cor pulmonale Qualified Code(s): I26.99 - Other pulmonary embolism without acute cor pulmonale Code(s): I26.99 - Other pulmonary embolism without acute cor pulmonale Status: Acute (8) Paroxysmal A-fib: Code(s): I48.0 - Paroxysmal atrial fibrillation Status: Acute (9) Pelvic hematoma: Status: Acute (10) Shock: Code(s): R57.9 - Shock, unspecified Status: Acute Additional Plan morphine drip started last night. change Versed infusion to Ativan p.r.n. transfer out of ICU unit today Subjective Date/time seen: 10/02/21 patient was palliatively extubated and placed on comfort measures yesterday. Review of Systems Review of Systems: ROS unobtainable: Yes unobtainable due to medical condition and unobtainable due to mental status Exam Narrative: Appears calm and comfortable patient's is at bedside Objective Data Vital Signs Vital Signs: Vital Signs - 24 hr 10/01/21 10:37 10/01/21 10:51 10/01/21 11:32 Temperature Pulse Rate 110 H 130 H 130 H Respiratory Rate 34 H Blood Pressure 97/57 L Pulse Oximetry 100 10/01/21 11:59 10/01/21 12:00 10/01/21 14:00 Temperature 37.3 C Pulse Rate 116 H 114 H 113 H Respiratory Rate 25 H 28 H Blood Pressure 100/61 111/69 138/82 Pulse Oximetry 100 100 10/01/21 15:16 10/01/21 15:48 10/01/21 19:32 Temperature Pulse Rate 134 H 134 H 128 H Respiratory Rate 21 H 21 H 26 H Blood Pressure Pulse Oximetry 90 10/01/21 19:52 10/01/21 20:00 10/01/21 20:44 Temperature 37.4 C 37.3 C 37.3 C Pulse Rate 126 H Respiratory Rate 33 H Blood Pressure Pulse Oximetry 90 10/01/21 22:03 10/02/21 02:00 10/02/21 02:12 Temperature Pulse Rate 126 H 120 H 120 H Respiratory Rate 23 H 31 H 33 H Blood Pressure Pulse Oximetry 10/02/21 07:34 10/02/21 07:53 Temperature Pulse Rate 116 H 116 H Respiratory Rate 31 H 35 H Blood Pressure Pulse Oximetry Intake/Output Intake/Output: Intake & Output 09/29/21 09/30/21 10/01/21 10/02/21 23:59 23:59 23:59 23:59 Intake Total 1980 1904 2216 320 Output Total 1500 1240 310 0 Balance 940 617 6538 320 Meds/Results Medications: Active Medications Generic Name Dose Route Start Last Admin Trade Name Freq PRN Reason Stop Dose Admin Atropine Sulfate 1 - 2 drop 10/01/21 14:15 10/02/21 08:04 Atropine Sulfate 1% Ophth Soln 5 Ml Bottle SUBLINGUAL 1 drop Q4H PRN Administration Secretions Morphine Sulfate 50 mg/ Sodium 100 mls @ 18 mls/hr 10/01/21 21:10 10/02/21 10:00 Chloride IV CONT 9 mg/hr .Q5H34M SIXTO 18 mls/hr Administration Protocol 9 MG/HR Lorazepam 2 mg 10/01/21 14:15 10/02/21 09:28 Lorazepam Inj (*Crx) 2 Mg/Ml Vial IV PUSH 2 mg Q30M PRN Administrati
--- NOTE | 2021-10-02 11:58 | PCFNICU ---
ICU Rounding Note: Pt current nutrition is NPO. Last recorded weight is 94.8 kg, down from 100.3 kg on admit. Bowel Motility:+BM reported 2/6 Labs Reviewed:No labs to report. Meds Noted:Morphine, Ativan. Skin: Deep Tissue-Coccyx Additional Notes: Patient has been extubated. Comport Measures only. No further nutritional interventions needed.
--- NOTE | 2021-10-02 14:29 | PM.IMPN ---
Subjective Date/time seen: 10/02/21 14:29 (1) Acute DVT (deep venous thrombosis): Qualifiers: DVT location: lower extremity Affected thrombotic vein of extremity: femoral Laterality: left Qualified Code(s): I82.412 - Acute embolism and thrombosis of left femoral vein Code(s): I82.409 - Acute embolism and thrombosis of unspecified deep veins of unspecified lower extremity Status: Acute Assessment and Plan: 09/22/2021 venous Dopplers: Acute deep vein thrombosis involving left common femoral vein. Some veins were not well evaluated due to patient motion. -08/25 - earlier this admission patient had PE and was started on anticoagulation and developed a large abdominal hematoma with hemorrhagic shock requiring multiple units of blood products, DDAVP and tranexamic acid - Anticoagulation was stopped at that time. Lower Extremity Dopplers were negative for DVT at that time -surgery consulted for IVC filter and they recommended trial of anticoagulation. Patient was started on Lovenox. -I will continue to monitor hemoglobin closely which has been stable for now 09/30/2021 Interval history: 55-year-old female diagnosed with COVID on 08/16/2021 received dexamethasone therapy as were remdesivir patient symptoms worsen and was intubated on 08/30/2021, extubated on 09/14/2021 and was reintubated on 09/22/2021 remains intubated, patient is also found to pneumonia and bilateral pulmonary emboli patient is being treated with cefepime, vancomycin and Flagyl, patient seen by beauty specialist patient also has worsening kidney function is seen outreach educator recommending temporary hemodialysis and patient at placement temporary tunneled catheter, will continue to monitor and further recommendation to follow. 10/01/2021 Interval history: 55-year-old female diagnosed with COVID on 08/16/2021 received dexamethasone therapy as were remdesivir patient symptoms worsen and was intubated on 08/30/2021, extubated on 09/14/2021 and was reintubated on 09/22/2021 remains intubated, patient is also found to pneumonia and bilateral pulmonary emboli patient is being treated with cefepime, vancomycin and Flagyl, patient seen by beauty specialist patient also has worsening kidney function is seen outreach educator recommending temporary hemodialysis and patient at placement temporary tunneled catheter, will continue to monitor and further recommendation to follow. patient had a CT scan of abdomen and pelvis hematoma has not changed, patient remains on vent and clinically stable, beauty specialist has spoken to tertiary care for possible transfer to ICU pending bed availability, patient's and son will come to see the patient today and discussed with the beauty specialist further recommendation to follow, appreciate beauty specialist and outreach educator. 10/02/2021 on 10/01 patient's son and her had a meeting with a beauty specialist and decided to withdraw care patient was extubated, today patient is in the room, patient was not seen as family spending time with the patient, discussed with beauty specialist and rn transitional care plan is to place the patient under hospice care, will continue to monitor. Review of Systems Review of Systems: ROS unobtainable: Yes unobtainable due to medical condition Exam Narrative: patient was not examined as family is spending time with the patient Objective Data Vital Signs Vital Signs: Vital Signs - 24 hr 10/01/21 15:16 10/01/21 15:48 10/01/21 19:32 Temperature Pulse Rate 134 H 134 H 128 H Respiratory Rate 21 H 21 H 26 H Pulse Oximetry 90 10/01/21 19:52 10/01/21 20:00 10/01/21 20:44 Temperature 99.3 F 99.2 F 99.2 F Pulse Rate 126 H Respiratory Rate 33 H Pulse Oximetry 90 10/01/21 22:03 10/02/21 02:00 10/02/21 02:12 Temperature Pulse Rate 126 H 120 H 120 H Respiratory Rate 23 H 31 H 33 H Pulse Oximetry 10/02/21 07:34 10/02/21 07:53 Temperature Pulse Rate 116 H 116 H Respiratory Rate 31 H 35 H Puls
--- NOTE | 2021-10-02 14:30 | PC.NURSE ---
Pt transferred to 260 via bed with morphine gtt attached, report given to Liliana SMITH at 1430. Pt on comfort measures with vitas coming to admit.
--- NOTE | 2021-10-02 14:35 | PC.NURSE ---
This patient, Arielle Zuleta, was received from ICU on 10/02/21 at 1435. Patient/family oriented to unit policies and routines
[2021-10-02] MEDS: MORPHINE SULFATE INJ (*CRX) 50 MG in SODIUM CHLORIDE 0.9% IV 95 ML 20 MG IV CONT (14:50)
--- NOTE | 2021-10-02 17:17 | PM.IMHP ---
H&P: HPI History of Present Illness Date/Time: 10/02/21 17:17 Chief Complaint: uncontrolled dyspnea Narrative: this unfortunate 55-year-old female was in her usual state of health until she contracted COVID-19 pneumonia she came to the hospital August 21 because worsening dyspnea was found to have an oxygen saturation of 68% on room air. She was treated with standard COVID-19 therapy and continued to worsen to the point where she needed the ventilator August 30. She was extubated but but shortly thereafter required re-intubation. She experienced acute kidney injury DVT and pulmonary emboli as complications ever COVID-19 pneumonia with sepsis. Because of her continued illness and failure to improve with associated encephalopathy her family opted for comfort care only. She was extubated with Continuous IV morphine initiated for control of her dyspnea. Review of Systems Review of Systems: ROS unobtainable: Yes unobtainable due to medical condition PMFSH Past Medical History Medical History BMI 35.0-35.9,adult Chest wall deformity Dysphagia Elevated glucose Elevated liver enzymes Epigastric pain Obesity Onychomycosis Plantar fasciitis of left foot Surgical History Surgical History H/O arthroscopy of knee 2012, right knee 2009? left knee H/O shoulder surgery right shoulder, 2019 H/O: section Family History Family History Father Hypertension Family history of heart disease in male family member before age 55 Sibling Hypertension Cerebrovascular accident Family history of diabetes mellitus in first degree relative Family history of heart disease in male family member before age 55 Mother Family history of diabetes mellitus in first degree relative Grandparent Diabetes mellitus Sibling Diabetes mellitus Other Family history of cardiovascular disease Family history of elevated blood lipids Family history of mental disorder Social History Social History Smoking status: Never smoker Second hand tobacco smoke exposure: Yes Alcohol intake: never Substance use: never Substance use type: does not use 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 sertraline 100 mg tablet 100 mg PO DAILY #30 tablet 05/08/21 08/21/21 Rx rosuvastatin 10 mg tablet 10 mg PO DAILY #30 tablet 06/12/21 08/21/21 Rx oxycodone-acetaminophen 7.5 mg-325 1 tablet PO Q6H PRN tablet 06/28/21 08/21/21 History mg tablet albuterol sulfate 90 mcg/actuation 1 inh INHALATION Q4H PRN #8.5 g 08/14/21 08/21/21 Rx aerosol inhaler benzonatate 200 mg capsule 200 mg PO BID PRN #30 cap 08/14/21 08/21/21 Rx prednisone 10 mg tablet 30 mg PO DAILY #15 tablet 08/14/21 08/21/21 Rx aripiprazole 5 mg PO DAILY 08/21/21 08/21/21 History azithromycin 250 mg PO DAILY 08/21/21 08/21/21 History bupropion HCl 150 mg PO BID 08/21/21 08/21/21 History calcium polycarbophil [FiberCon] 1,250 mg PO DAILY 08/21/21 08/21/21 History docusate sodium 50 mg PO DAILY 08/21/21 08/21/21 History multivit with min-folic acid 1 tablet PO DAILY 08/21/21 08/21/21 History [Adult One Daily Multivitamin] Allergies Allergy/AdvReac Type Severity Reaction Status Date / Time esomeprazole Allergy Unknown Unknown Verified 08/14/21 11:17 fluoxetine Allergy Unknown Unknown Verified 08/14/21 11:17 Vital Signs Vital Signs - 24 hr 10/01/21 19:32 10/01/21 19:52 10/01/21 20:00 Temperature 99.3 F 99.2 F Pulse Rate 128 H 126 H Respiratory Rate 26 H 33 H Pulse Oximetry 90 90 10/01/21 20:44
--- NOTE | 2021-10-03 12:21 | PM.DS ---
DS: Admitting Diagnosis Discharge Date 10/02/21 Admitting Diagnosis Shortness of breath DS: Discharge Diagnosis Discharge Diagnosis (1) Palliative care by specialist: Code(s): Z51.5 - Encounter for palliative care Status: Acute Assessment and Plan: Meet inpatient hospice criteria due to requirement for continuous IV morphine to control dyspnea Remainder palliative regimen as ordered (2) Pneumonia due to COVID-19 virus: Code(s): U07.1 - COVID-19; J12.82 - Pneumonia due to coronavirus disease 2019 Status: Acute (3) Pulmonary embolism: Qualifiers: Pulmonary embolism type: unspecified Chronicity: acute Acute cor pulmonale presence: without acute cor pulmonale Qualified Code(s): I26.99 - Other pulmonary embolism without acute cor pulmonale Code(s): I26.99 - Other pulmonary embolism without acute cor pulmonale Status: Acute (4) Acute DVT (deep venous thrombosis): Qualifiers: DVT location: lower extremity Affected thrombotic vein of extremity: femoral Laterality: left Qualified Code(s): I82.412 - Acute embolism and thrombosis of left femoral vein Code(s): I82.409 - Acute embolism and thrombosis of unspecified deep veins of unspecified lower extremity Status: Acute (5) JERRY (acute kidney injury): Code(s): N17.9 - Acute kidney failure, unspecified Status: Acute (6) Acute respiratory failure with hypoxia: Code(s): J96.01 - Acute respiratory failure with hypoxia Status: Acute DS: Summary Hospital Course Reason for hospitalization: Chief Complaint: Shortness of breath. Narrative: Patient is a 55-year-old female with past medical history significant for depression, generalized anxiety. Patient presented to emergency room due to worsening shortness of breath and persistent dry cough patient tested positive for COVID in the outpatient setting states that everybody home has COVID her and her son also tested positive for COVID, she had been started on amoxicillin, prednisone, inhalers, was seen again on a virtual visit due to non remitting of symptoms and worsening cough and shortness of breath at that time a Z-Ricardo was added as well and a PCR COVID was sent. Patient states that she is not vaccinated but is planning to get vaccinated after the she gets over this. The patient then decided to come to the emergency room today after she noted that she had a low pulse ox was noted to be 68% she require supplemental oxygen and in view of no improvement while in the emergency room decision was made to admit the patient for further evaluation management and treatment. Chest x-ray and CT of the chest were significant for extensive lung infiltrates but PE was not found. Hospital Course: 09/30/2021 Interval history: 55-year-old female diagnosed with COVID on 08/16/2021 received dexamethasone therapy as were remdesivir patient symptoms worsen and was intubated on 08/30/2021, extubated on 09/14/2021 and was reintubated on 09/22/2021 remains intubated, patient is also found to pneumonia and bilateral pulmonary emboli patient is being treated with cefepime, vancomycin and Flagyl, patient seen by gym supervisor patient also has worsening kidney function is seen trust officer recommending temporary hemodialysis and patient at placement temporary tunneled catheter, will continue to monitor and further recommendation to follow. 10/01/2021 Interval history: 55-year-old female diagnosed with COVID on 08/16/2021 received dexamethasone therapy as were remdesivir patient symptoms worsen and was intubated on 08/30/2021, extubated on 09/14/2021 and was reintubated on 09/22/2021 remains intubated, patient is also found to pneumonia and bilateral pulmonary emboli patient is being treated with cefepime, vancomycin and Flagyl, patient seen by gym supervisor patient also has worsening kidney function is seen trust officer recommending temporary hemodialysis and patient at plac
== END 2021-10-02 17:59 | disposition hospice, inpatient (51) | DRG 207 ==
LOC: ANHED 17:24 → ANH3MEDSUR 18:31 → ANH2MED 10-04 10:05 → ANH3MEDSUR 10-04 10:05 → ANHICU 10-04 10:05 → ANHIMU 10-04 10:05
PROVIDERS: Emergency Medicine; Internal Medicine; Internal Medicine Nephrology; Student in an Organized Health Care Education/Training Program; Admitting Provider Family Medicine; Emergency Provider Emergency Medicine; PCP Family Medicine; Visit Provider Nurse Practitioner
DX: U07.1 COVID-19 (principal); J12.82 Pneumonia due to coronavirus disease 2019; J96.01 Acute respiratory failure with hypoxia; I26.99 Other pulmonary embolism without acute cor pulmonale; N17.0 Acute kidney failure with tubular necrosis; R57.8 Other shock; A41.9 Sepsis, unspecified organism; K66.1 Hemoperitoneum; I46.9 Cardiac arrest, cause unspecified; S35.298A Other injury of branches of celiac and mesenteric artery, initial encounter; K72.00 Acute and subacute hepatic failure without coma; G92.8 Other toxic encephalopathy; R65.21 Severe sepsis with septic shock; E22.2 Syndrome of inappropriate secretion of antidiuretic hormone; I82.412 Acute embolism and thrombosis of left femoral vein; D62 Acute posthemorrhagic anemia; N13.39 Other hydronephrosis; G93.1 Anoxic brain damage, not elsewhere classified; J95.89 Other postprocedural complications and disorders of respiratory system, not elsewhere classified; Z99.11 Dependence on respirator [ventilator] status; Z51.5 Encounter for palliative care; X58.XXXA Exposure to other specified factors, initial encounter; R00.0 Tachycardia, unspecified; E87.6 Hypokalemia; M17.0 Bilateral primary osteoarthritis of knee; I48.0 Paroxysmal atrial fibrillation; E66.9 Obesity, unspecified; J40 Bronchitis, not specified as acute or chronic; R13.19 Other dysphagia; R19.7 Diarrhea, unspecified; D73.5 Infarction of spleen; F41.1 Generalized anxiety disorder; F32.A Depression, unspecified; Z68.33 Body mass index [BMI] 33.0-33.9, adult; Z99.2 Dependence on renal dialysis
CPT/HCPCS: 36415; 36430; 36569; 36600; 43752; 50432; 70450; 71045; 71250; 71260; 71275; 72170; 74018; 74176; 74177; 76775; 80048; 80053; 80069; 80074; 80202; 81001; 82375; 82533; 82550; 82565; 82570; 82728; 82805; 82948; 83050; 83605; 83615; 83735; 83880; 84100; 84156; 84295; 84300; 84450; 84460; 84478; 84484; 85014; 85018; 85025; 85027; 85380; 85384; 85610; 85730; 86140; 86706; 86850; 86900; 86901; 86920; 87040; 87070; 87077; 87086; 87088; 87186; 87205; 87340; 92610; 93005; 93970; 94002; 94003; 94640; 94667; 95816; 97110; 97163; 97167; 97530; 97535; 99285; C1752; A9270; C1729; C1751; C8929; G0257; J0131; J0171; J0282; J0456; J0610; J0692; J0696; J0743; J1100; J1644; J1650; J1720; J1815; J1885; J1940; J2060; J2250; J2270; J2370; J2597; J2704; J2997; J3010; J3370; J3430; J3475; J3480; J7030; J7040; J7050; J7060; J7070; J7120; J8540; P9012; P9016; P9017; P9047; P9059; Q5105; Q9967

== ENCOUNTER 2021-10-02 15:20 | HOS | payer OTHER, SELFPAY ==
--- NOTE | 2021-10-02 17:29 | HP_ITS ---
This report was moved to the correct visit, [id number] on 10/03/2021. Original report was signed by Mook Up MD on 10/02/21 at 1729. H&P: HPI History of Present Illness Date/Time: 10/02/21 17:17 Chief Complaint: uncontrolled dyspnea Narrative: this unfortunate 55-year-old female was in her usual state of health until she contracted COVID-19 pneumonia she came to the hospital August 21 because worsening dyspnea was found to have an oxygen saturation of 68% on room air. She was treated with standard COVID-19 therapy and continued to worsen to the point where she needed the ventilator August 30. She was extubated but but shortly thereafter required re-intubation. She experienced acute kidney injury DVT and pulmonary emboli as complications ever COVID-19 pneumonia with sepsis. Because of her continued illness and failure to improve with associated encephalopathy her family opted for comfort care only. She was extubated with Continuous IV morphine initiated for control of her dyspnea. Review of Systems Review of Systems: ROS unobtainable: Yes unobtainable due to medical condition PMFSH Past Medical History Medical History BMI 35.0-35.9,adult Chest wall deformity Dysphagia Elevated glucose Elevated liver enzymes Epigastric pain Obesity Onychomycosis Plantar fasciitis of left foot Surgical History Surgical History H/O arthroscopy of knee 2012, right knee 2009? left knee H/O shoulder surgery right shoulder, 2019 H/O: section Family History Family History Father Hypertension Family history of heart disease in male family member before age 55 Sibling Hypertension Cerebrovascular accident Family history of diabetes mellitus in first degree relative Family history of heart disease in male family member before age 55 Mother Family history of diabetes mellitus in first degree relative Grandparent Diabetes mellitus Sibling Diabetes mellitus Other Family history of cardiovascular disease Family history of elevated blood lipids Family history of mental disorder Social History Social History Smoking status: Never smoker Second hand tobacco smoke exposure: Yes Alcohol intake: never Substance use: never Substance use type: does not use 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 sertraline 100 mg tablet 100 mg PO DAILY #30 tablet 05/08/21 08/21/21 Rx rosuvastatin 10 mg tablet 10 mg PO DAILY #30 tablet 06/12/21 08/21/21 Rx oxycodone-acetaminophen 7.5 mg-325 1 tablet PO Q6H PRN tablet 06/28/21 08/21/21 History mg tablet albuterol sulfate 90 mcg/actuation 1 inh INHALATION Q4H PRN #8.5 g 08/14/21 08/21/21 Rx aerosol inhaler benzonatate 200 mg capsule 200 mg PO BID PRN #30 cap 08/14/21 08/21/21 Rx prednisone 10 mg tablet 30 mg PO DAILY #15 tablet 08/14/21 08/21/21 Rx aripiprazole 5 mg PO DAILY 08/21/21 08/21/21 History azithromycin 250 mg PO DAILY 08/21/21 08/21/21 History bupropion HCl 150 mg PO BID 08/21/21 08/21/21 History calcium polycarbophil [FiberCon] 1,250 mg PO DAILY 08/21/21 08/21/21 History docusate sodium 50 mg PO DAILY 08/21/21 08/21/21 History multivit wit
[2021-10-02 18:18] VITALS: BMI 33.7
[2021-10-02] MEDS: MORPHINE SULFATE INJ (*CRX) 50 MG in SODIUM CHLORIDE 0.9% IV 95 ML 20 MG IV CONT (19:38)
[2021-10-03] VITALS (7 sets, daily range): BP systolic 81; BP diastolic 46; PULSE 125; RESP 15; TEMP 37.1–38.9; O2SAT 90
[2021-10-03] MEDS: MORPHINE SULFATE INJ (*CRX) 50 MG in SODIUM CHLORIDE 0.9% IV 95 ML 20 MG IV CONT ×5 (01:31→22:02)
[2021-10-03] MEDS: ACETAMINOPHEN 650 MG SUPPOSITORY RECTAL ×2 (04:55→10:50)
[2021-10-03] MEDS: LORazepam INJ (*CRX) 2 MG/ML VIAL IV PUSH (06:02)
--- NOTE | 2021-10-03 15:28 | PDCODEBLUE ---
[facility] Note Code Blue Note Time Arrived at [facility]: 08/30/21 1830 Initial Rhythm on Arrival: Sinus tachycardia Airway Management: Initiated bagging pt on arrival Chest Compressions: Initiated upon arrival Result of Code Blue: Pt transferred to ICU Cardiac Rhythm Post Code: Sinus tachycardia Code Blue Summary: Patient was in bed and started to have agonal respirations. Initial heart rate was 120s. Started to bag the patient for respiratory support. It was noted her heart rate dropped to the 60s. Pulse became absent, and CPR was initiated. Respiratory took over bagging. Krystyna the ICU director called for the steff [facility]cnam[facility]. Crash cart arrived and pads were placed with no interruption to CPR. Dr. Lawton arrived and setup for intubation. Epi was given. Pulse check after 2 minutes of CPR revealed PEA. CPR resumed and another epi was given. ET placed. 2 minutes of CPR performed. Pulse check performed with pulse present. Sinus tachycardia shown on the monitor. Patient continued to be bag. Chest xray performed, ET was retracted 3 cm. Bilateral breath sounds present. ICU doctor informed. Patient transferred to ICU.
--- NOTE | 2021-10-03 16:39 | PM.IMPN ---
Progress Note: A&P Assessment and Plan (1) Palliative care by specialist: Code(s): Z51.5 - Encounter for palliative care Status: Acute Assessment and Plan: Meets inpatient hospice criteria due to requirement for continuous IV morphine to control dyspnea and discomfort Remainder of palliative regimen as ordered (2) Pneumonia due to COVID-19 virus: Code(s): U07.1 - COVID-19; J12.82 - Pneumonia due to coronavirus disease 2019 Status: Acute (3) Paroxysmal A-fib: Code(s): I48.0 - Paroxysmal atrial fibrillation Status: Acute (4) Acute DVT (deep venous thrombosis): Qualifiers: DVT location: lower extremity Affected thrombotic vein of extremity: femoral Laterality: left Qualified Code(s): I82.412 - Acute embolism and thrombosis of left femoral vein Code(s): I82.409 - Acute embolism and thrombosis of unspecified deep veins of unspecified lower extremity Status: Acute (5) Pulmonary embolism: Qualifiers: Pulmonary embolism type: unspecified Chronicity: acute Acute cor pulmonale presence: without acute cor pulmonale Qualified Code(s): I26.99 - Other pulmonary embolism without acute cor pulmonale Code(s): I26.99 - Other pulmonary embolism without acute cor pulmonale Status: Acute (6) JERRY (acute kidney injury): Code(s): N17.9 - Acute kidney failure, unspecified Status: Acute (7) Acute respiratory failure with hypoxia: Code(s): J96.01 - Acute respiratory failure with hypoxia Status: Acute Subjective Date/time seen: 10/03/21 16:39 Interval history: September visit. Remained comfortable all day. Review of Systems Review of Systems: ROS unobtainable: Yes unobtainable due to medical condition Exam Narrative: Middle-aged female flushed with tachypnea otherwise resting supine and comfortable in hospital bed Pharyngeal mucosa dry but pink Neck without visible JVD Chest with coarse breath sounds Heart regular frequent premature beats tachycardia Extremities trace pedal edema Abdomen protuberant soft hypoactive bowel sounds Musculoskeletal no gross deformities Cranial nerves symmetric to visual inspection Objective Data Vital Signs Vital Signs: Vital Signs - 24 hr 10/03/21 04:24 10/03/21 04:55 10/03/21 05:55 Temperature 101.8 F H 101.8 F H 100.4 F H 10/03/21 10:50 10/03/21 11:50 Temperature 102.0 F H 98.7 F Intake/Output Intake/Output: Intake & Output 09/30/21 10/01/21 10/02/21 10/03/21 23:59 23:59 23:59 23:59 Intake Total 300 Balance 300 Meds/Results Medications: Active Medications Generic Name Dose Route Start Last Admin Trade Name Freq PRN Reason Stop Dose Admin Acetaminophen 650 mg 10/03/21 04:20 10/03/21 10:50 Acetaminophen 650 Mg Suppository RECTAL 650 mg Q6H PRN Administration Mild Pain (1-3) or Fever Artificial Tears 1 drop 10/02/21 18:20 Artificial Tears Ophth Soln 15 Ml Bottle EACH EYE Q12H PRN Dry Eye(s) Atropine Sulfate 0 drop 10/02/21 18:20 Atropine Sulfate 1% Ophth Soln 5 Ml Bottle SUBLINGUAL Q4H PRN SECRETIONS Bisacodyl 10 mg 10/02/21 18:20 Bisacodyl 10 Mg Suppository RECTAL DAILY PRN Constipation Glycopyrrolate 0.1 mg 10/02/21 18:20 Glycopyrrolate Inj (*Sp) 0.2 Mg/Ml Vial IV PUSH Q4H PRN secretions Morphine Sulfate 50 mg/ Sodium 100 mls @ 20 mls/hr 10/02/21 20:00 10/03/21 11:39 Chloride IV CONT 10 mg/hr .Q5H SIXTO 20 mls/hr Administration 10 MG/HR Lorazepam 2 mg 10/02/21 18:23 10/03/21 06:02 Lorazepam Inj (*Crx) 2 Mg/Ml Vial IV PUSH 2 mg Q30M PRN Administration PAIN/RESTLESSNESS Morphine Sulfate 1 mg 10/02/21 18:22 Morphine Sulfate (*Crx) 2 Mg/Ml Inj IV PUSH Q30M PRN Pain/SOB Prochlorperazine Edisylate 10 mg 10/02/21 18:20 Prochlorperazine Edisylate 10 Mg/2 Ml Vial IV PUSH Q6H PRN Nausea And Vomiting
[2021-10-04] MEDS: MORPHINE SULFATE INJ (*CRX) 50 MG in SODIUM CHLORIDE 0.9% IV 95 ML 20 MG IV CONT ×5 (03:06→23:08)
[2021-10-04] MEDS: ATROPINE SULFATE 1% OPHTH SOLN 5 ML BOTTLE SUBLINGUAL ×3 (06:16→22:42)
[2021-10-04 13:00] VITALS: BP 89/41; PULSE 118; RESP 26; TEMP 37.2; O2SAT 85
[2021-10-04 21:22] VITALS: BP 97/65; PULSE 127; RESP 15; TEMP 37.1; O2SAT 91
--- NOTE | 2021-10-04 23:03 | PC.NURSE ---
x4 100ml morphine bags delivered by pharmacy. One bag to be hung at this time, x3 bags placed in miscellaneous narc in [facility].
[2021-10-05] MEDS: GLYCOPYRROLATE INJ (*SP) 0.2 MG/ML VIAL 0.1 MG IV PUSH ×3 (00:46→20:28)
[2021-10-05] MEDS: MORPHINE SULFATE INJ (*CRX) 50 MG in SODIUM CHLORIDE 0.9% IV 95 ML 20 MG IV CONT ×4 (04:18→19:03)
--- NOTE | 2021-10-05 13:20 | PM.IMPN ---
Progress Note: A&P Assessment and Plan (1) Palliative care by specialist: Code(s): Z51.5 - Encounter for palliative care Status: Acute Assessment and Plan: Meets inpatient hospice criteria due to requirement for continuous IV morphine to control dyspnea and discomfort Remainder of palliative regimen as ordered (2) Pneumonia due to COVID-19 virus: Code(s): U07.1 - COVID-19; J12.82 - Pneumonia due to coronavirus disease 2019 Status: Acute (3) Paroxysmal A-fib: Code(s): I48.0 - Paroxysmal atrial fibrillation Status: Acute (4) Acute DVT (deep venous thrombosis): Qualifiers: DVT location: lower extremity Affected thrombotic vein of extremity: femoral Laterality: left Qualified Code(s): I82.412 - Acute embolism and thrombosis of left femoral vein Code(s): I82.409 - Acute embolism and thrombosis of unspecified deep veins of unspecified lower extremity Status: Acute (5) Pulmonary embolism: Qualifiers: Pulmonary embolism type: unspecified Chronicity: acute Acute cor pulmonale presence: without acute cor pulmonale Qualified Code(s): I26.99 - Other pulmonary embolism without acute cor pulmonale Code(s): I26.99 - Other pulmonary embolism without acute cor pulmonale Status: Acute (6) JERRY (acute kidney injury): Code(s): N17.9 - Acute kidney failure, unspecified Status: Acute (7) Acute respiratory failure with hypoxia: Code(s): J96.01 - Acute respiratory failure with hypoxia Status: Acute Subjective Date/time seen: 10/04/21 13:40 Interval history: Hospice nurse, Rivas, at bedside for telehealth visit. Remains comfortable. Review of Systems Review of Systems: ROS unobtainable: Yes unobtainable due to medical condition Exam Narrative: supine and comfortable respirations nonlabored Objective Data Vital Signs Vital Signs: Vital Signs - 24 hr 10/04/21 21:22 Temperature 98.7 F Pulse Rate 127 H Respiratory Rate 15 Blood Pressure 97/65 L Pulse Oximetry 91 Intake/Output Intake/Output: Intake & Output 10/02/21 10/03/21 10/04/21 10/05/21 23:59 23:59 23:59 23:59 Intake Total 500 490 192.5 Output Total 250 Balance 500 240 192.5 Meds/Results Medications: Active Medications Generic Name Dose Route Start Last Admin Trade Name Freq PRN Reason Stop Dose Admin Acetaminophen 650 mg 10/03/21 04:20 10/03/21 10:50 Acetaminophen 650 Mg Suppository RECTAL 650 mg Q6H PRN Administration Mild Pain (1-3) or Fever Artificial Tears 1 drop 10/02/21 18:20 Artificial Tears Ophth Soln 15 Ml Bottle EACH EYE Q12H PRN Dry Eye(s) Atropine Sulfate 0 drop 10/02/21 18:20 10/04/21 22:42 Atropine Sulfate 1% Ophth Soln 5 Ml Bottle SUBLINGUAL 1 drop Q4H PRN Administration SECRETIONS Bisacodyl 10 mg 10/02/21 18:20 Bisacodyl 10 Mg Suppository RECTAL DAILY PRN Constipation Glycopyrrolate 0.1 mg 10/02/21 18:20 10/05/21 05:21 Glycopyrrolate Inj (*Sp) 0.2 Mg/Ml Vial IV PUSH 0.1 mg Q4H PRN Administration secretions Morphine Sulfate 50 mg/ Sodium 100 mls @ 20 mls/hr 10/02/21 20:00 10/05/21 09:25 Chloride IV CONT 10 mg/hr .Q5H SIXTO 20 mls/hr Administration 10 MG/HR Lorazepam 2 mg 10/02/21 18:23 10/03/21 06:02 Lorazepam Inj (*Crx) 2 Mg/Ml Vial IV PUSH 2 mg Q30M PRN Administration PAIN/RESTLESSNESS Morphine Sulfate 1 mg 10/02/21 18:22 Morphine Sulfate (*Crx) 2 Mg/Ml Inj IV PUSH Q30M PRN Pain/SOB Prochlorperazine Edisylate 10 mg 10/02/21 18:20 Prochlorperazine Edisylate 10 Mg/2 Ml Vial IV PUSH Q6H PRN Nausea And Vomiting
--- NOTE | 2021-10-05 16:22 | PM.IMPN ---
Progress Note: A&P Assessment and Plan (1) Palliative care by specialist: Code(s): Z51.5 - Encounter for palliative care Status: Acute Assessment and Plan: Meets inpatient hospice criteria due to requirement for continuous IV morphine to control dyspnea and discomfort Remainder of palliative regimen as ordered (2) Pneumonia due to COVID-19 virus: Code(s): U07.1 - COVID-19; J12.82 - Pneumonia due to coronavirus disease 2019 Status: Acute (3) Paroxysmal A-fib: Code(s): I48.0 - Paroxysmal atrial fibrillation Status: Acute (4) Acute DVT (deep venous thrombosis): Qualifiers: DVT location: lower extremity Affected thrombotic vein of extremity: femoral Laterality: left Qualified Code(s): I82.412 - Acute embolism and thrombosis of left femoral vein Code(s): I82.409 - Acute embolism and thrombosis of unspecified deep veins of unspecified lower extremity Status: Acute (5) Pulmonary embolism: Qualifiers: Pulmonary embolism type: unspecified Chronicity: acute Acute cor pulmonale presence: without acute cor pulmonale Qualified Code(s): I26.99 - Other pulmonary embolism without acute cor pulmonale Code(s): I26.99 - Other pulmonary embolism without acute cor pulmonale Status: Acute (6) JERRY (acute kidney injury): Code(s): N17.9 - Acute kidney failure, unspecified Status: Acute (7) Acute respiratory failure with hypoxia: Code(s): J96.01 - Acute respiratory failure with hypoxia Status: Acute Subjective Date/time seen: 10/05/21 16:22 Interval history: 10/05 visit: Comfortable. Review of Systems Review of Systems: ROS unobtainable: Yes unobtainable due to medical condition Exam Narrative: Sleeping. No jvd Coarse BS Heart RR Abd decr BS soft Extr trace ankle edema, warm Objective Data Vital Signs Vital Signs: Vital Signs - 24 hr 10/04/21 21:22 Temperature 98.7 F Pulse Rate 127 H Respiratory Rate 15 Blood Pressure 97/65 L Pulse Oximetry 91 Intake/Output Intake/Output: Intake & Output 10/02/21 10/03/21 10/04/21 10/05/21 23:59 23:59 23:59 23:59 Intake Total 500 490 292.5 Output Total 250 Balance 500 240 292.5 Meds/Results Medications: Active Medications Generic Name Dose Route Start Last Admin Trade Name Freq PRN Reason Stop Dose Admin Acetaminophen 650 mg 10/03/21 04:20 10/03/21 10:50 Acetaminophen 650 Mg Suppository RECTAL 650 mg Q6H PRN Administration Mild Pain (1-3) or Fever Artificial Tears 1 drop 10/02/21 18:20 Artificial Tears Ophth Soln 15 Ml Bottle EACH EYE Q12H PRN Dry Eye(s) Atropine Sulfate 0 drop 10/02/21 18:20 10/04/21 22:42 Atropine Sulfate 1% Ophth Soln 5 Ml Bottle SUBLINGUAL 1 drop Q4H PRN Administration SECRETIONS Bisacodyl 10 mg 10/02/21 18:20 Bisacodyl 10 Mg Suppository RECTAL DAILY PRN Constipation Glycopyrrolate 0.1 mg 10/02/21 18:20 10/05/21 05:21 Glycopyrrolate Inj (*Sp) 0.2 Mg/Ml Vial IV PUSH 0.1 mg Q4H PRN Administration secretions Morphine Sulfate 50 mg/ Sodium 100 mls @ 20 mls/hr 10/02/21 20:00 10/05/21 14:13 Chloride IV CONT 10 mg/hr .Q5H SIXTO 20 mls/hr Administration 10 MG/HR Lorazepam 2 mg 10/02/21 18:23 10/03/21 06:02 Lorazepam Inj (*Crx) 2 Mg/Ml Vial IV PUSH 2 mg Q30M PRN Administration PAIN/RESTLESSNESS Morphine Sulfate 1 mg 10/02/21 18:22 Morphine Sulfate (*Crx) 2 Mg/Ml Inj IV PUSH Q30M PRN Pain/SOB Prochlorperazine Edisylate 10 mg 10/02/21 18:20 Prochlorperazine Edisylate 10 Mg/2 Ml Vial IV PUSH Q6H PRN Nausea And Vomiting
[2021-10-05 19:53] VITALS: BP 93/45; PULSE 119; RESP 18; TEMP 37.3; O2SAT 58
--- NOTE | 2021-10-05 22:30 | PC.NURSE ---
x3 100ml morphine bags placed in [facility] in [facility]
[2021-10-06] MEDS: MORPHINE SULFATE INJ (*CRX) 50 MG in SODIUM CHLORIDE 0.9% IV 95 ML 20 MG IV CONT ×5 (00:20→22:46)
[2021-10-06] MEDS: GLYCOPYRROLATE INJ (*SP) 0.2 MG/ML VIAL 0.1 MG IV PUSH ×4 (03:24→18:41)
[2021-10-06] MEDS: MORPHINE SULFATE (*CRX) 2 MG/ML INJ 1 MG IV PUSH (05:57)
[2021-10-06] MEDS: LORazepam INJ (*CRX) 2 MG/ML VIAL IV PUSH ×3 (15:01→18:41)
--- NOTE | 2021-10-06 15:06 | PM.IMPN ---
Progress Note: A&P Assessment and Plan (1) Palliative care by specialist: Code(s): Z51.5 - Encounter for palliative care Status: Acute Assessment and Plan: Meets inpatient hospice criteria due to requirement for continuous IV morphine to control dyspnea and discomfort Remainder of palliative regimen as ordered (2) Pneumonia due to COVID-19 virus: Code(s): U07.1 - COVID-19; J12.82 - Pneumonia due to coronavirus disease 2019 Status: Acute (3) Paroxysmal A-fib: Code(s): I48.0 - Paroxysmal atrial fibrillation Status: Acute (4) Acute DVT (deep venous thrombosis): Qualifiers: DVT location: lower extremity Affected thrombotic vein of extremity: femoral Laterality: left Qualified Code(s): I82.412 - Acute embolism and thrombosis of left femoral vein Code(s): I82.409 - Acute embolism and thrombosis of unspecified deep veins of unspecified lower extremity Status: Acute (5) Pulmonary embolism: Qualifiers: Pulmonary embolism type: unspecified Chronicity: acute Acute cor pulmonale presence: without acute cor pulmonale Qualified Code(s): I26.99 - Other pulmonary embolism without acute cor pulmonale Code(s): I26.99 - Other pulmonary embolism without acute cor pulmonale Status: Acute (6) JERRY (acute kidney injury): Code(s): N17.9 - Acute kidney failure, unspecified Status: Acute (7) Acute respiratory failure with hypoxia: Code(s): J96.01 - Acute respiratory failure with hypoxia Status: Acute Subjective Date/time seen: 10/06/21 15:06 Interval history: Visit via telehealth with systems librarian at bedside. Remains comfortable. Review of Systems Review of Systems: ROS unobtainable: Yes unobtainable due to medical condition Exam Narrative: Coarse BS Heart RR Extr trace edema Objective Data Vital Signs Vital Signs: Vital Signs - 24 hr 10/05/21 19:53 Temperature 99.2 F Pulse Rate 119 H Respiratory Rate 18 Blood Pressure 93/45 L Pulse Oximetry 58 L Intake/Output Intake/Output: Intake & Output 10/03/21 10/04/21 10/05/21 10/06/21 23:59 23:59 23:59 23:59 Intake Total 500 490 392.5 300 Output Total 250 95 250 Balance 500 240 297.5 50 Meds/Results Medications: Active Medications Generic Name Dose Route Start Last Admin Trade Name Freq PRN Reason Stop Dose Admin Acetaminophen 650 mg 10/03/21 04:20 10/03/21 10:50 Acetaminophen 650 Mg Suppository RECTAL 650 mg Q6H PRN Administration Mild Pain (1-3) or Fever Artificial Tears 1 drop 10/02/21 18:20 Artificial Tears Ophth Soln 15 Ml Bottle EACH EYE Q12H PRN Dry Eye(s) Atropine Sulfate 0 drop 10/02/21 18:20 10/04/21 22:42 Atropine Sulfate 1% Ophth Soln 5 Ml Bottle SUBLINGUAL 1 drop Q4H PRN Administration SECRETIONS Bisacodyl 10 mg 10/02/21 18:20 Bisacodyl 10 Mg Suppository RECTAL DAILY PRN Constipation Glycopyrrolate 0.1 mg 10/02/21 18:20 10/06/21 15:01 Glycopyrrolate Inj (*Sp) 0.2 Mg/Ml Vial IV PUSH 0.1 mg Q4H PRN Administration secretions Morphine Sulfate 50 mg/ Sodium 100 mls @ 20 mls/hr 10/02/21 20:00 10/06/21 11:26 Chloride IV CONT 10 mg/hr .Q5H SIXTO 20 mls/hr Administration 10 MG/HR Lorazepam 2 mg 10/02/21 18:23 10/06/21 15:01 Lorazepam Inj (*Crx) 2 Mg/Ml Vial IV PUSH 2 mg Q30M PRN Administration PAIN/RESTLESSNESS Morphine Sulfate 1 mg 10/02/21 18:22 10/06/21 05:57 Morphine Sulfate (*Crx) 2 Mg/Ml Inj IV PUSH 1 mg Q30M PRN Administration Pain/SOB Prochlorperazine Edisylate 10 mg 10/02/21 18:20 Prochlorperazine Edisylate 10 Mg/2 Ml Vial IV PUSH Q6H PRN Nausea And Vomiting
[2021-10-06 20:22] VITALS: BP 96/57; PULSE 97; RESP 22; TEMP 36.8; O2SAT 91
[2021-10-07] MEDS: MORPHINE SULFATE INJ (*CRX) 50 MG in SODIUM CHLORIDE 0.9% IV 95 ML 20 MG IV CONT ×4 (03:09→20:12)
[2021-10-07] MEDS: ATROPINE SULFATE 1% OPHTH SOLN 5 ML BOTTLE SUBLINGUAL ×4 (03:12→21:12)
[2021-10-07] MEDS: GLYCOPYRROLATE INJ (*SP) 0.2 MG/ML VIAL 0.1 MG IV PUSH ×4 (03:17→21:12)
[2021-10-07] MEDS: LORazepam INJ (*CRX) 2 MG/ML VIAL IV PUSH ×7 (07:23→20:17)
[2021-10-07 08:15] VITALS: RESP 26
--- NOTE | 2021-10-07 12:38 | PM.IMPN ---
Progress Note: A&P Assessment and Plan (1) Palliative care by specialist: Code(s): Z51.5 - Encounter for palliative care Status: Acute Assessment and Plan: Meets inpatient hospice criteria due to requirement for continuous IV morphine to control dyspnea and discomfort Remainder of palliative regimen as ordered 10/07 added levetiracetam 500mg q 12 hours for control of GTC seizures (2) Pneumonia due to COVID-19 virus: Code(s): U07.1 - COVID-19; J12.82 - Pneumonia due to coronavirus disease 2019 Status: Acute (3) Paroxysmal A-fib: Code(s): I48.0 - Paroxysmal atrial fibrillation Status: Acute (4) Acute DVT (deep venous thrombosis): Qualifiers: DVT location: lower extremity Affected thrombotic vein of extremity: femoral Laterality: left Qualified Code(s): I82.412 - Acute embolism and thrombosis of left femoral vein Code(s): I82.409 - Acute embolism and thrombosis of unspecified deep veins of unspecified lower extremity Status: Acute (5) Pulmonary embolism: Qualifiers: Pulmonary embolism type: unspecified Chronicity: acute Acute cor pulmonale presence: without acute cor pulmonale Qualified Code(s): I26.99 - Other pulmonary embolism without acute cor pulmonale Code(s): I26.99 - Other pulmonary embolism without acute cor pulmonale Status: Acute (6) JERRY (acute kidney injury): Code(s): N17.9 - Acute kidney failure, unspecified Status: Acute (7) Acute respiratory failure with hypoxia: Code(s): J96.01 - Acute respiratory failure with hypoxia Status: Acute (8) Seizure: Code(s): R56.9 - Unspecified convulsions Status: Acute Assessment and Plan: Suspect due to cerebral ischemia related to COVID-19 Subjective Date/time seen: 10/07/21 12:38 Interval history: October 07 visit. Two episodes a generalized tonic clonic seizure activity during the night. One lasted 30 seconds. Lorazepam was given after each. No prior history of seizures. Spouse is at bedside to relate history. Review of Systems Review of Systems: ROS unobtainable: Yes unobtainable due to medical condition Exam Narrative: Coarse BS Heart RR Extr trace edema Objective Data Vital Signs Vital Signs: Vital Signs - 24 hr 10/06/21 20:22 10/07/21 08:15 Temperature 98.3 F Pulse Rate 97 Respiratory Rate 22 H 26 H Blood Pressure 96/57 L Pulse Oximetry 91 Intake/Output Intake/Output: Intake & Output 10/04/21 10/05/21 10/06/21 10/07/21 23:59 23:59 23:59 23:59 Intake Total 490 392.5 500 200 Output Total 250 95 575 0 Balance 240 297.5 -75 200 Meds/Results Medications: Active Medications Generic Name Dose Route Start Last Admin Trade Name Freq PRN Reason Stop Dose Admin Acetaminophen 650 mg 10/03/21 04:20 10/03/21 10:50 Acetaminophen 650 Mg Suppository RECTAL 650 mg Q6H PRN Administration Mild Pain (1-3) or Fever Artificial Tears 1 drop 10/02/21 18:20 Artificial Tears Ophth Soln 15 Ml Bottle EACH EYE Q12H PRN Dry Eye(s) Atropine Sulfate 0 drop 10/02/21 18:20 10/07/21 10:22 Atropine Sulfate 1% Ophth Soln 5 Ml Bottle SUBLINGUAL 1 drop Q4H PRN Administration SECRETIONS Bisacodyl 10 mg 10/02/21 18:20 Bisacodyl 10 Mg Suppository RECTAL DAILY PRN Constipation Glycopyrrolate 0.1 mg 10/02/21 18:20 10/07/21 12:18 Glycopyrrolate Inj (*Sp) 0.2 Mg/Ml Vial IV PUSH 0.1 mg Q4H PRN Administration secretions Morphine Sulfate 50 mg/ Sodium 100 mls @ 20 mls/hr 10/02/21 20:00 10/07/21 08:09 Chloride IV CONT 10 mg/hr .Q5H SIXTO 20 mls/hr Administration 10 MG/HR Lorazepam 2 mg 10/02/21 18:23 10/07/21 11:51 Lorazepam Inj (*Crx) 2 Mg/Ml Vial IV PUSH 2 mg Q30M PRN Administration PAIN/RESTLESSNESS Morphine Sulfate 1 mg 10/02/21 18:22 10/06/21 05:57 Morphine Sulfate (*Crx) 2 Mg/Ml Inj IV PUSH 1 mg
[2021-10-07] MEDS: levETIRAcetam 500MG/NACL 100ML 500 MG/100 ML BAG 400 MG IVPB ×2 (13:40→20:12)
[2021-10-07 16:05] VITALS: BP 102/52; PULSE 98; RESP 28; TEMP 36.1; O2SAT 74
[2021-10-07 20:08] VITALS: BP 106/60; PULSE 102; RESP 22; TEMP 36.2; O2SAT 76
[2021-10-08] MEDS: LORazepam INJ (*CRX) 2 MG/ML VIAL IV PUSH ×10 (00:04→21:29)
[2021-10-08] MEDS: MORPHINE SULFATE INJ (*CRX) 50 MG in SODIUM CHLORIDE 0.9% IV 95 ML 20 MG IV CONT ×5 (00:04→21:00)
[2021-10-08] MEDS: ATROPINE SULFATE 1% OPHTH SOLN 5 ML BOTTLE SUBLINGUAL ×3 (04:59→21:05)
[2021-10-08] MEDS: GLYCOPYRROLATE INJ (*SP) 0.2 MG/ML VIAL 0.1 MG IV PUSH ×5 (04:59→21:29)
--- NOTE | 2021-10-08 09:15 | PM.DDS ---
Discharge Summary Probable Cause of Probable Cause of : ACUTE HYPOXIC RESPIRATORY FAILURE DUE TO COVID19 PNEUMONIA Summary Hospital Course: ADMITTED TO INPATIENT HOSPICE SERVICE FOR UNCONTROLLED DYSPNEA. MEDICATIONS TITRATED TO COMFORT. PATIENT PEACEFULLY.
[2021-10-08] MEDS: levETIRAcetam 500MG/NACL 100ML 500 MG/100 ML BAG 400 MG IVPB ×2 (09:26→21:00)
--- NOTE | 2021-10-08 16:22 | PM.IMPN ---
Progress Note: A&P Assessment and Plan (1) Palliative care by specialist: Code(s): Z51.5 - Encounter for palliative care Status: Acute Assessment and Plan: Meets inpatient hospice criteria due to requirement for continuous IV morphine to control dyspnea and discomfort Remainder of palliative regimen as ordered 10/07 added levetiracetam 500mg q 12 hours for control of GTC seizures (2) Pneumonia due to COVID-19 virus: Code(s): U07.1 - COVID-19; J12.82 - Pneumonia due to coronavirus disease 2019 Status: Acute (3) Paroxysmal A-fib: Code(s): I48.0 - Paroxysmal atrial fibrillation Status: Acute (4) Acute DVT (deep venous thrombosis): Qualifiers: DVT location: lower extremity Affected thrombotic vein of extremity: femoral Laterality: left Qualified Code(s): I82.412 - Acute embolism and thrombosis of left femoral vein Code(s): I82.409 - Acute embolism and thrombosis of unspecified deep veins of unspecified lower extremity Status: Acute (5) Pulmonary embolism: Qualifiers: Pulmonary embolism type: unspecified Chronicity: acute Acute cor pulmonale presence: without acute cor pulmonale Qualified Code(s): I26.99 - Other pulmonary embolism without acute cor pulmonale Code(s): I26.99 - Other pulmonary embolism without acute cor pulmonale Status: Acute (6) JERRY (acute kidney injury): Code(s): N17.9 - Acute kidney failure, unspecified Status: Acute (7) Acute respiratory failure with hypoxia: Code(s): J96.01 - Acute respiratory failure with hypoxia Status: Acute (8) Seizure: Code(s): R56.9 - Unspecified convulsions Status: Acute Assessment and Plan: Suspect due to cerebral ischemia related to COVID-19 Subjective Date/time seen: 10/08/21 16:22 Interval history: 10/08 visit: Remains comfortable. Increased audible rhonchi at bedside. No further seizures. Review of Systems Review of Systems: ROS unobtainable: Yes unobtainable due to medical condition Exam Narrative: Audible rhonchi respirations nonlabored. Objective Data Vital Signs Vital Signs: Vital Signs - 24 hr 10/07/21 20:08 Temperature 97.1 F L Pulse Rate 102 H Respiratory Rate 22 H Blood Pressure 106/60 Pulse Oximetry 76 L Intake/Output Intake/Output: Intake & Output 10/05/21 10/06/21 10/07/21 10/08/21 23:59 23:59 23:59 23:59 Intake Total 392.5 500 500 500 Output Total 95 575 1400 375 Balance 297.5 -75 -900 125 Meds/Results Medications: Active Medications Generic Name Dose Route Start Last Admin Trade Name Freq PRN Reason Stop Dose Admin Acetaminophen 650 mg 10/03/21 04:20 10/03/21 10:50 Acetaminophen 650 Mg Suppository RECTAL 650 mg Q6H PRN Administration Mild Pain (1-3) or Fever Artificial Tears 1 drop 10/02/21 18:20 Artificial Tears Ophth Soln 15 Ml Bottle EACH EYE Q12H PRN Dry Eye(s) Atropine Sulfate 0 drop 10/02/21 18:20 10/08/21 11:29 Atropine Sulfate 1% Ophth Soln 5 Ml Bottle SUBLINGUAL 1 drop Q4H PRN Administration SECRETIONS Bisacodyl 10 mg 10/02/21 18:20 Bisacodyl 10 Mg Suppository RECTAL DAILY PRN Constipation Glycopyrrolate 0.1 mg 10/02/21 18:20 10/08/21 13:09 Glycopyrrolate Inj (*Sp) 0.2 Mg/Ml Vial IV PUSH 0.1 mg Q4H PRN Administration secretions Morphine Sulfate 50 mg/ Sodium 100 mls @ 20 mls/hr 10/02/21 20:00 10/08/21 16:03 Chloride IV CONT 10 mg/hr .Q5H SIXTO 20 mls/hr Administration 10 MG/HR Levetiracetam 500 mg in 100 mls @ 400 mls/hr 10/07/21 21:00 10/08/21 09:45 Keppra Iv IVPB Infused Q12HR SIXTO Infusion Lorazepam 2 mg 10/02/21 18:23 10/08/21 16:03 Lorazepam Inj (*Crx) 2 Mg/Ml Vial IV PUSH 2 mg Q30M PRN Administration PAIN/RESTLESSNESS Morphine Sulfate 1 mg 10/02/21 18:22 10/06/21 05:57 Morphine Sulfate (*Crx) 2 Mg/Ml Inj IV PUSH 1 mg Q30M CA
[2021-10-08 20:56] VITALS: BP 91/49; PULSE 102; RESP 14; TEMP 36.6; O2SAT 52
[2021-10-09] MEDS: GLYCOPYRROLATE INJ (*SP) 0.2 MG/ML VIAL 0.1 MG IV PUSH ×3 (02:12→23:16)
[2021-10-09] MEDS: MORPHINE SULFATE INJ (*CRX) 50 MG in SODIUM CHLORIDE 0.9% IV 95 ML 20 MG IV CONT ×5 (02:13→23:16)
[2021-10-09 09:36] VITALS: BP 96/44; PULSE 106; RESP 14
[2021-10-09] MEDS: levETIRAcetam 500MG/NACL 100ML 500 MG/100 ML BAG 400 MG IVPB ×2 (09:55→23:10)
[2021-10-09 10:00] VITALS: PULSE 106; RESP 14; O2SAT 52
[2021-10-09] MEDS: LORazepam INJ (*CRX) 2 MG/ML VIAL IV PUSH ×3 (11:36→16:26)
[2021-10-09 20:00] VITALS: BP 89/42; PULSE 105; RESP 20; TEMP 37.1; O2SAT 58
[2021-10-09] MEDS: ATROPINE SULFATE 1% OPHTH SOLN 5 ML BOTTLE SUBLINGUAL (23:11)
[2021-10-10] MEDS: MORPHINE SULFATE INJ (*CRX) 50 MG in SODIUM CHLORIDE 0.9% IV 95 ML 20 MG IV CONT ×2 (04:21→09:01)
[2021-10-10] MEDS: levETIRAcetam 500MG/NACL 100ML 500 MG/100 ML BAG 400 MG IVPB (08:00)
--- NOTE | 2021-10-10 12:34 | P.PNIM_ITS ---
Progress Note: A&P Assessment and Plan (1) Palliative care by specialist: Code(s): Z51.5 - Encounter for palliative care Status: Acute Assessment and Plan: * Meets inpatient hospice criteria due to requirement for continuous IV morphine to control dyspnea and discomfort * Remainder of palliative regimen as ordered * 10/07 added levetiracetam 500mg q 12 hours for control of GTC seizures (2) Pneumonia due to COVID-19 virus: Code(s): U07.1 - COVID-19; J12.82 - Pneumonia due to coronavirus disease 2019 Status: Acute (3) Paroxysmal A-fib: Code(s): I48.0 - Paroxysmal atrial fibrillation Status: Acute (4) Acute DVT (deep venous thrombosis): Qualifiers: DVT location: lower extremity Affected thrombotic vein of extremity: femoral Laterality: left Qualified Code(s): I82.412 - Acute embolism and thrombosis of left femoral vein Code(s): I82.409 - Acute embolism and thrombosis of unspecified deep veins of unspecified lower extremity Status: Acute (5) Pulmonary embolism: Qualifiers: Pulmonary embolism type: unspecified Chronicity: acute Acute cor pulm onale presence: without acute cor pulmonale Qualified Code(s): I26.99 - Other pulmonary embolism without acute cor pulmonale Code(s): I26.99 - Other pulmonary embolism without acute cor pulmonale Status: Acute (6) JERRY (acute kidney injury): Code(s): N17.9 - Acute kidney failure, unspecified Status: Acute (7) Acute respiratory failure with hypoxia: Code(s): J96.01 - Acute respiratory failure with hypoxia Status: Acute (8) Seizure: Code(s): R56.9 - Unspecified convulsions Status: Acute Assessment and Plan: * Suspect due to cerebral ischemia related to COVID-19 Subjective Date/time seen: 12:34 Interval history: 10/09 visit: [facility] visit with hospice nurse Rivas at bedside. Increase rattling with reespirations, but not struggling. Exam Narrative: Audible rhonchi respirations nonlabored. Objective Data Vital Signs Vital Signs: Vital Signs - 24 hr 10/09/21 20:00 Temperature 98.7 F Pulse Rate 105 H Respiratory Rate 20 Blood Pressure 89/42 L Pulse Oximetry 58 L Intake/Output Intake/Output: Intake & Output 02/12/22 02/13/22 02/14/22 02/15/22 23:59 23:59 23:59 23:59 Intake Total 500 700 700 200 Output Total 1400 800 650 250 Balance -900 -100 50 -50
== END 2021-10-10 09:26 | disposition expired | DRG 951 ==
PROVIDERS: Admitting Provider Internal Medicine; PCP Family Medicine; Visit Provider Internal Medicine
DX: Z51.5 Encounter for palliative care (principal); U07.1 COVID-19; J12.82 Pneumonia due to coronavirus disease 2019; J96.01 Acute respiratory failure with hypoxia; I26.99 Other pulmonary embolism without acute cor pulmonale; I82.412 Acute embolism and thrombosis of left femoral vein; N17.9 Acute kidney failure, unspecified; I67.82 Cerebral ischemia; R56.9 Unspecified convulsions; I48.0 Paroxysmal atrial fibrillation
CPT/HCPCS: A9270; J1953; J2060; J2270